=== PATIENT | female | born 1995 | race Caucasian/White ===

== ENCOUNTER 2022-12-03 21:08 | Outpatient (REF) | payer BC, SELFPAY ==
[2022-12-06 15:10] LABS: Age Gdln ACOG Testing Note (.); IGP, rfx Aptima HPV ASCU Note (.)
== END 2022-12-03 21:09 | disposition home or self-care (01) ==
LOC: LAB 21:08
PROVIDERS: Visit Provider Obstetrics & Gynecology
DX: Z12.4 Encounter for screening for malignant neoplasm of cervix (principal); Z11.51 Encounter for screening for human papillomavirus (HPV)
CPT/HCPCS: G0145

== ENCOUNTER 2022-12-06 08:28 | Outpatient (OUT) | payer BC, MEDICAID, SELFPAY ==
[2022-12-06 10:50] LABS: HCG Quantitative 168 mIU/mL
== END 2022-12-06 08:29 | disposition home or self-care (01) ==
PROVIDERS: PCP Family Medicine; Visit Provider Obstetrics & Gynecology
DX: N92.6 Irregular menstruation, unspecified (principal)
CPT/HCPCS: 36415; 84702

== ENCOUNTER 2022-12-09 07:13 | Outpatient (OUT) | payer BC, MEDICAID, SELFPAY ==
[2022-12-09 08:00] LABS: HCG Quantitative 942 mIU/mL
== END 2022-12-09 07:14 | disposition home or self-care (01) ==
LOC: LAB 07:15
PROVIDERS: PCP Family Medicine; Visit Provider Obstetrics & Gynecology
DX: N92.6 Irregular menstruation, unspecified (principal)
CPT/HCPCS: 36415; 84702

== ENCOUNTER 2023-01-09 15:34 | Outpatient (OUT) | payer BC, MEDICAID, SELFPAY ==
--- NOTE | 2023-01-09 15:37 | US_ITS ---
The [address] [address] Patient Name: JARVIS MACEDO MRN: [id number] date: 1995 Sex: F Assigned Patient Location: US Current Patient Location: US Accession/Order Number: [id number] Exam Date: 01/09/2023 15:38 Report Date: 01/09/2023 22:15 At the request of: TALITA LEARY Procedure: US OB transvaginal EXAMINATION: US OB transvaginal HISTORY: MISSED MENSES COMPARISON: No relevant comparison available. FINDINGS: GESTATIONAL SAC: Present and normal appearing. YOLK SAC: Present and normal appearing. POLE: Present and normal appearing. CARDIAC: Present. UTERUS: Normal size and appearance. OVARIES: Right: Normal. Left: Normal. CERVIX: 5.1 cm in length and closed. CUL-DE-SAC: Normal. OTHER: None. AGE BY LMP: 8 weeks 6 days TONJA BY LMP: 08/15/2023 AGE BY US CRL: 9 weeks 2 days TONJA BY US CRL: 08/12/2023 US/US OB transvaginal IMPRESSION: 1. Single live intrauterine . Electronically authenticated by: SELENA ZUÑIGA Date: 01/09/2023 22:15
== END 2023-01-09 15:35 | disposition home or self-care (01) ==
LOC: US 15:34
PROVIDERS: PCP Family Medicine; Visit Provider Obstetrics & Gynecology
DX: Z34.91 Encounter for supervision of normal pregnancy, unspecified, first trimester (principal)
CPT/HCPCS: 76817

== ENCOUNTER 2023-01-17 10:14 | Outpatient (OUT) | payer BC, MEDICAID, SELFPAY ==
[2023-01-17 11:01] LABS: BOX Test Sent Out Y
[2023-01-17 11:06] LABS: Basophils Percent Auto 0.1 % (0.2-2.0); Eosinophils Absolute Auto 0.1 10^3/uL (0.0-0.7); Eosinophils Percent Auto 0.8 % (0.9-7.0); Hematocrit 41.8 % (36.0-48.0); Hemoglobin 14.3 g/dL (12.0-16.0); Immature Granulocytes Abs Auto 0.02 10^3/uL (0.00-0.03); Immature Granulocytes Pct Auto 0.3 % (0.0-0.5); Lymphocytes Absolute Auto 2.6 10^3/uL (1.2-3.8); Lymphocytes Percent Auto 34.6 % (20.5-60.0); Mean Corpuscular HGB Conc 34.2 g/dL (29.9-35.2); Mean Corpuscular Volume 87.8 fL (81.0-99.0); Mean Platelet Volume 9.6 fL (9.5-13.5); Monocytes Absolute Auto 0.4 10^3/uL (0.3-0.8); Monocytes Percent Auto 4.6 % (1.7-12.0); Neutrophils Absolute Auto 4.5 10^3/uL (1.4-6.5); Neutrophils Percent Auto 59.6 % (43.0-75.0); Platelet Count 284 10^3/uL (150-450); Red Blood Count 4.76 10^6/uL (4.20-5.40); Red Cell Distribution Width 13.2 % (11.0-15.0); White Blood Count 7.6 10^3/uL (4.0-11.0)
[2023-01-17 11:11] LABS: Estimated Average Glucose 94 mg/dL; Glycohemoglobin A1C 4.9 % (4.5-6.2)
[2023-01-17 12:13] LABS: Thyroid Stimulating Hormone 2.388 uIU/mL (0.358-3.740)
[2023-01-18 07:09] LABS: Rubella Antibodies, IgG 2.56 index (Immune >0.99)
[2023-01-18 08:10] LABS: HBsAg Screen Negative (Negative); HCV Ab Non Reactive (Non Reactive); HIV Ab/p24 Ag Screen Non Reactive (Non Reactive)
[2023-01-18 11:10] LABS: Rapid Plasma Reagin, Quant Non Reactive (NonRea<1:1)
== END 2023-01-17 10:15 | disposition home or self-care (01) ==
LOC: LAB 10:15
PROVIDERS: PCP Family Medicine; Visit Provider Obstetrics & Gynecology
DX: Z34.80 Encounter for supervision of other normal pregnancy, unspecified trimester (principal); N92.6 Irregular menstruation, unspecified
CPT/HCPCS: 36415; 83036; 84443; 85025; 86592; 86706; 86762; 86803; 86850; 86900; 86901; 87086; 87389

== ENCOUNTER 2023-04-02 07:43 | Outpatient (OUT) | payer BC, MEDICAID, SELFPAY ==
--- NOTE | 2023-04-02 07:46 | US_ITS ---
[address] [address] Patient Name: JARVIS MACEDO MRN: [id number] date: 1995 Sex: F Assigned Patient Location: US Current Patient Location: US Accession/Order Number: [id number] Exam Date: 04/02/2023 07:46 Report Date: 04/02/2023 15:50 At the request of: TALITA LEARY Procedure: US OB anatomy EXAMINATION: US OB anatomy, US OB cervical length HISTORY: ANATOMY COMPARISON: No relevant comparison available. TECHNIQUE: Transabdominal sonographic examination was performed for obstetrical and evaluation. FINDINGS: Number: 1 Heart Rate: 142.0 bpm H.B. /min Amniotic Fluid Volume: Subjectively normal Placental Location: Posterior with lower margin 2.2 cm from os. Cervix Length: 5 cm , closed. ANATOMY: Normal Structures -cerebellum, choroid plexus, cisterna magna, lateral cerebral ventricles, orbits, midline falx, hard palate, four-chamber heart, RVOT, LVOT, stomach, kidneys, bladder, umbilical cord insertion into abdomen, three-vessel cord, right upper extremity, left upper extremity, right lower extremity, left lower extremity. SUBOPTIMALLY SEEN: Spine ABNORMALITIES: Renal pelvis is 4 mm in width bilaterally. BIOMETRY: BPD: 5.2 cm 21 weeks 5 days ; 83% HC: 19.2 cm 21 weeks 3 days; 75% AC: 17.5 cm 22 weeks 3 days; 90% FL: 3.7 cm 21 weeks 6 days ; 81% EFW:476.0 grams; >97% FL/AC: 21.4 FL/BPD: 72.5 HC/AC: 1.1 GESTATIONAL AGE: Age by EDC: 20 weeks 5 days TONJA by EDC: 08/15/2023 Age by current US: 21 weeks 6 days TONJA by current US: 08/07/2023 US/US OB anatomy IMPRESSION: 1. Single live intrauterine with growth detailed above. 2. Estimated weight is greater than 97th percentile. 3. Suboptimal visualization of spine due to position. 4. Slightly prominent renal pelvis bilaterally; follow-up recommended to evaluate for developing hydronephrosis. Electronically authenticated by: SELENA ZUÑIGA Date: 04/02/2023 15:50
--- NOTE | 2023-04-02 07:46 | US_ITS ---
[address] [address] Patient Name: JARVIS MACEDO MRN: [id number] date: 1995 Sex: F Assigned Patient Location: US Current Patient Location: US Accession/Order Number: [id number] Exam Date: 04/02/2023 07:46 Report Date: 04/02/2023 15:50 At the request of: TALITA LEARY Procedure: US OB cervical length EXAMINATION: US OB anatomy, US OB cervical length HISTORY: ANATOMY COMPARISON: No relevant comparison available. TECHNIQUE: Transabdominal sonographic examination was performed for obstetrical and evaluation. FINDINGS: Number: 1 Heart Rate: 142.0 bpm H.B. /min Amniotic Fluid Volume: Subjectively normal Placental Location: Posterior with lower margin 2.2 cm from os. Cervix Length: 5 cm , closed. ANATOMY: Normal Structures -cerebellum, choroid plexus, cisterna magna, lateral cerebral ventricles, orbits, midline falx, hard palate, four-chamber heart, RVOT, LVOT, stomach, kidneys, bladder, umbilical cord insertion into abdomen, three-vessel cord, right upper extremity, left upper extremity, right lower extremity, left lower extremity. SUBOPTIMALLY SEEN: Spine ABNORMALITIES: Renal pelvis is 4 mm in width bilaterally. BIOMETRY: BPD: 5.2 cm 21 weeks 5 days ; 83% HC: 19.2 cm 21 weeks 3 days; 75% AC: 17.5 cm 22 weeks 3 days; 90% FL: 3.7 cm 21 weeks 6 days ; 81% EFW:476.0 grams; >97% FL/AC: 21.4 FL/BPD: 72.5 HC/AC: 1.1 GESTATIONAL AGE: Age by EDC: 20 weeks 5 days TONJA by EDC: 08/15/2023 Age by current US: 21 weeks 6 days TONJA by current US: 08/07/2023 US/US OB cervical length IMPRESSION: 1. Single live intrauterine with growth detailed above. 2. Estimated weight is greater than 97th percentile. 3. Suboptimal visualization of spine due to position. 4. Slightly prominent renal pelvis bilaterally; follow-up recommended to evaluate for developing hydronephrosis. Electronically authenticated by: SELENA ZUÑIGA Date: 04/02/2023 15:50
== END 2023-04-02 07:44 | disposition home or self-care (01) ==
LOC: US 07:43
PROVIDERS: PCP Family Medicine; Visit Provider Obstetrics & Gynecology
DX: Z34.92 Encounter for supervision of normal pregnancy, unspecified, second trimester (principal)
CPT/HCPCS: 76805; 76817

== ENCOUNTER 2023-04-21 07:05 | Outpatient (OUT) | payer BC, MEDICAID, SELFPAY ==
[2023-04-21 08:08] LABS: Chol HDL Ratio 3.1; Cholesterol 235 mg/dL (<=200); HDL Cholesterol 75 mg/dL (40-60); Triglycerides 140 mg/dL (<=150)
== END 2023-04-21 07:06 | disposition home or self-care (01) ==
LOC: LAB 07:07
PROVIDERS: PCP Family Medicine; Visit Provider Physician Assistant
DX: Z00.00 Encounter for general adult medical examination without abnormal findings (principal)
CPT/HCPCS: 36415; 80061

== ENCOUNTER 2023-05-01 08:52 | Outpatient (OUT) | payer BC, OTHER, SELFPAY ==
--- NOTE | 2023-05-01 07:43 | US_ITS ---
[address] [address] Patient Name: JARVIS MACEDO MRN: [id number] date: 1995 Sex: F Assigned Patient Location: Current Patient Location: Accession/Order Number: [id number] Exam Date: 05/01/2023 07:45 Report Date: 05/01/2023 09:30 At the request of: TALITA LEARY Procedure: US OB cervical length PROCEDURE: US OB growth, US OB placenta, US OB cervical length HISTORY: LARGE FOR DATES COMPARISON: None. TECHNIQUE: Transabdominal sonographic examination was performed for obstetrical and evaluation. FINDINGS: Number: 1 Heart Rate: 128.0 bpm H.B. /min Amniotic Fluid Volume: 13.3 cm. Largest fluid pocket 4.1 cm position: Cephalic presentation, longitudinal lie Placental Location: Posterior. Placental tip 5.1 cm from the internal os. Grade 1. No intraplacental or retroplacental echogenic abnormality Cervix Length: 4.4 cm, closed BIOMETRY: BPD: 6.5 cm 26 weeks 2 days , 88% HC: 24.5 cm 26 weeks 4 days , 86% AC:21.8 cm 26 weeks 2 days , 82% FL: 4.9 cm 26 weeks 4 days , 86% EFW: 932.1 grams 2 lbs. 1 oz., 95.4% FL/AC: 22.7 FL/BPD: 75.6 HC/AC: 1.1 GESTATIONAL AGE: Age by EDC: 24 weeks 6 days TONJA by EDC: 08/15/2023 Ultrasound Age: 26 weeks 3 days Ultrasound TONJA: 08/04/2023 US/US OB cervical length IMPRESSION: Estimated weight at the 95th percentile Placental edge 5.1 cm from the internal os Closed Cervix measuring 4.4 cm in length *Reference: [employer] Practice Guideline for the performance of Obstetric Ultrasound Examinations, February 23, 2007. Electronically authenticated by: REBEL FRANK Date: 05/01/2023 09:30
--- NOTE | 2023-05-01 07:44 | US_ITS ---
[address] [address] Patient Name: JARVIS MACEDO MRN: [id number] date: 1995 Sex: F Assigned Patient Location: Current Patient Location: Accession/Order Number: [id number] Exam Date: 05/01/2023 07:45 Report Date: 05/01/2023 09:30 At the request of: TALITA LEARY Procedure: US OB placenta PROCEDURE: US OB growth, US OB placenta, US OB cervical length HISTORY: LARGE FOR DATES COMPARISON: None. TECHNIQUE: Transabdominal sonographic examination was performed for obstetrical and evaluation. FINDINGS: Number: 1 Heart Rate: 128.0 bpm H.B. /min Amniotic Fluid Volume: 13.3 cm. Largest fluid pocket 4.1 cm position: Cephalic presentation, longitudinal lie Placental Location: Posterior. Placental tip 5.1 cm from the internal os. Grade 1. No intraplacental or retroplacental echogenic abnormality Cervix Length: 4.4 cm, closed BIOMETRY: BPD: 6.5 cm 26 weeks 2 days , 88% HC: 24.5 cm 26 weeks 4 days , 86% AC:21.8 cm 26 weeks 2 days , 82% FL: 4.9 cm 26 weeks 4 days , 86% EFW: 932.1 grams 2 lbs. 1 oz., 95.4% FL/AC: 22.7 FL/BPD: 75.6 HC/AC: 1.1 GESTATIONAL AGE: Age by EDC: 24 weeks 6 days TONJA by EDC: 08/15/2023 Ultrasound Age: 26 weeks 3 days Ultrasound TONJA: 08/04/2023 US/US OB placenta IMPRESSION: Estimated weight at the 95th percentile Placental edge 5.1 cm from the internal os Closed Cervix measuring 4.4 cm in length *Reference: [employer] Practice Guideline for the performance of Obstetric Ultrasound Examinations, February 23, 2007. Electronically authenticated by: REBEL FRANK Date: 05/01/2023 09:30
--- NOTE | 2023-05-01 07:50 | US_ITS ---
[address] [address] Patient Name: JARVIS MACEDO MRN: [id number] date: 1995 Sex: F Assigned Patient Location: Current Patient Location: Accession/Order Number: [id number] Exam Date: 05/01/2023 07:50 Report Date: 05/01/2023 09:30 At the request of: TALITA LEARY Procedure: US OB growth PROCEDURE: US OB growth, US OB placenta, US OB cervical length HISTORY: LARGE FOR DATES COMPARISON: None. TECHNIQUE: Transabdominal sonographic examination was performed for obstetrical and evaluation. FINDINGS: Number: 1 Heart Rate: 128.0 bpm H.B. /min Amniotic Fluid Volume: 13.3 cm. Largest fluid pocket 4.1 cm position: Cephalic presentation, longitudinal lie Placental Location: Posterior. Placental tip 5.1 cm from the internal os. Grade 1. No intraplacental or retroplacental echogenic abnormality Cervix Length: 4.4 cm, closed BIOMETRY: BPD: 6.5 cm 26 weeks 2 days , 88% HC: 24.5 cm 26 weeks 4 days , 86% AC:21.8 cm 26 weeks 2 days , 82% FL: 4.9 cm 26 weeks 4 days , 86% EFW: 932.1 grams 2 lbs. 1 oz., 95.4% FL/AC: 22.7 FL/BPD: 75.6 HC/AC: 1.1 GESTATIONAL AGE: Age by EDC: 24 weeks 6 days TONJA by EDC: 08/15/2023 Ultrasound Age: 26 weeks 3 days Ultrasound TONJA: 08/04/2023 US/US OB growth IMPRESSION: Estimated weight at the 95th percentile Placental edge 5.1 cm from the internal os Closed Cervix measuring 4.4 cm in length *Reference: [employer] Practice Guideline for the performance of Obstetric Ultrasound Examinations, February 23, 2007. Electronically authenticated by: REBEL FRANK Date: 05/01/2023 09:30
== END 2023-05-01 08:53 | disposition home or self-care (01) ==
PROVIDERS: PCP Family Medicine; Visit Provider Obstetrics & Gynecology
DX: O36.62X0 Maternal care for excessive fetal growth, second trimester, not applicable or unspecified (principal); Z3A.24 24 weeks gestation of pregnancy; O44.42 Low lying placenta NOS or without hemorrhage, second trimester
CPT/HCPCS: 76815; 76816; 76817

== ENCOUNTER 2023-05-02 07:35 | Outpatient (OUT) | payer BC, OTHER, SELFPAY ==
[2023-05-02 07:32] LABS: Basophils Percent Auto 0.3 % (0.2-2.0); Eosinophils Absolute Auto 0.1 10^3/uL (0.0-0.7); Eosinophils Percent Auto 0.8 % (0.9-7.0); Hematocrit 38.6 % (36.0-48.0); Hemoglobin 12.6 g/dL (12.0-16.0); Immature Granulocytes Abs Auto 0.03 10^3/uL (0.00-0.03); Immature Granulocytes Pct Auto 0.3 % (0.0-0.5); Lymphocytes Absolute Auto 2.6 10^3/uL (1.2-3.8); Lymphocytes Percent Auto 26.5 % (20.5-60.0); Mean Corpuscular HGB Conc 32.6 g/dL (29.9-35.2); Mean Corpuscular Hemoglobin 29.2 pg (26.7-34.0); Mean Corpuscular Volume 89.4 fL (81.0-99.0); Mean Platelet Volume 9.7 fL (9.5-13.5); Monocytes Absolute Auto 0.4 10^3/uL (0.3-0.8); Monocytes Percent Auto 3.7 % (1.7-12.0); Neutrophils Absolute Auto 6.6 10^3/uL (1.4-6.5); Neutrophils Percent Auto 68.4 % (43.0-75.0); Platelet Count 218 10^3/uL (150-450); Red Blood Count 4.32 10^6/uL (4.20-5.40); Red Cell Distribution Width 12.9 % (11.0-15.0); White Blood Count 9.6 10^3/uL (4.0-11.0)
[2023-05-02 08:02] LABS: Glucose 1 Hour 107 mg/dL
== END 2023-05-02 07:36 | disposition home or self-care (01) ==
LOC: LAB 07:35
PROVIDERS: Physician Assistant; PCP Family Medicine; Visit Provider Obstetrics & Gynecology
DX: Z34.90 Encounter for supervision of normal pregnancy, unspecified, unspecified trimester (principal)
CPT/HCPCS: 36415; 82950; 85025

== ENCOUNTER 2023-05-27 07:57 | Outpatient (OUT) | payer BC, OTHER, SELFPAY ==
--- NOTE | 2023-05-27 07:59 | US_ITS ---
[address] [address] Patient Name: JARVIS MACEDO MRN: [id number] date: 1995 Sex: F Assigned Patient Location: US Current Patient Location: US Accession/Order Number: [id number] Exam Date: 05/27/2023 07:59 Report Date: 05/27/2023 08:43 At the request of: TALITA LEARY Procedure: US OB growth EXAMINATION: US OB growth HISTORY: LGA COMPARISON: No relevant comparison available. TECHNIQUE: Transabdominal sonographic examination was performed for obstetrical and evaluation. FINDINGS: Number: 1 Heart Rate: 137.0 bpm H.B. /min Amniotic Fluid Volume: 12.1 cm Placental Location: Posterior fundal BIOMETRY: BPD: 7.9 cm 31 weeks 4 days , greater than 97% HC: 29.8 cm 33 weeks 0 days, greater than 97% AC: 26.8 cm 30 weeks 6 days, 95% FL: 5.8 cm 30 weeks 3 days , 85% EFW:1679.9 grams; 3 lbs. 11 oz., greater than 97% FL/AC: 21.8 FL/BPD: 74.3 HC/AC: 1.1 GESTATIONAL AGE: Age by EDC: 28 weeks 4 days Age by current US: 31 weeks 3 days TONJA by current US: 07/26/2023 TONJA by EDC: 08/15/2023 US/US OB growth IMPRESSION: Large for gestational age. Estimated weight greater than the 97th percentile *Reference: [employer] Practice Guideline for the performance of Obstetric Ultrasound Examinations, February 23, 2007. Electronically authenticated by: REBEL FRANK Date: 05/27/2023 08:43
--- OUTSIDE RECORDS SUMMARY | 2023-05-27 08:00 | XMS_ITS | CCD ---
Author Name Unknown Address [address] [place] [address] Organization [facility] Care Team Providers Care Litigation Claim Representative Name Role Phone TARYN, DR GA Primary Care Unavailable MAGUE, DR MAUDE Pathak Admitting Unavailabl e REINECK, DR MAUDE Pathak Consulting Unavailabl e HOECK, DR MAUDE Pathak Attending Unavailabl e Jackie Willett Unavailable Max, Urban Unavailable Georgie Disla Unavailable Asim Garber Admitting Unavailable Asim Garber Attending Unavailable Max, Urban MMarilyn Primary Care Unavailable Max, Urban MMarilyn Attending Unavailable Max, Urban MMarilyn Admitting Unavailable Max, Urban M. Primary Care Unavailable Dontrell Gallegos Unavailable Susanne Huitron Unavailable WILL GUSMAN Attending Unavailable Medications Current Medications Medication Drug Class(es) Dates Sig (Normalized) Sig (Original) amoxicillin 500 mg oral tablet (4 sources) Penicillin-class Antibacterial Start: 07-09-2022 take 1 tablet by mouth every twelve hours Amoxicillin 500 MG 1 capsule Orally Twice a day for 10 days Jun, Active amoxicillin 500 mg / clavulanate 125 mg oral tablet (2 sources) Penicillin-class Antibacterial Start: 08-21-2022 take 1 tablet by mouth twice daily Augmentin 500-125 MG 1 tablet Orally TWICE DAILY for 7 days Jul, Active DULoxetine 30 mg delayed release oral capsule (5 sources) Serotonin and Norepinephrine Reuptake Inhibitor Start: 01-18-2022 take 1 capsule by mouth every twenty-four hours DULoxetine HCl 30 MG 1 capsule Orally Once a day for 30 day(s) Dec, Active Start: 01-18-2022 take 1 capsule by [facility] every twenty-four hours DULoxetine HCl 20 MG 1 capsule Orally Once a day for 30 day(s) Dec, Active ethinyl estradiol 0.02 mg / ferrous fumarate 75 mg / norethindrone 1 mg oral tablet (2 sources) Estrogen take 1 tablet by mouth every twenty-four hours FE 06/14 1-20 MG-[facility] 1 tablet Orally Once a day Active ibuprofen 200 mg oral tablet (2 sources) Nonsteroidal Anti-inflammatory Drug Motrin IB 200 MG 1 tablet with food or milk as needed Orally Three times a day 800 mg taken at a time. Active Multivitamin/Iron (9 sources) Multivitamin/Iro n once daily Active nitrofurantoin, macrocrystals 25 mg / nitrofurantoin, monohydrate 75 mg oral capsule (4 sources) Nitrofuran Antibacterial Start: 08-10-19 23 take 1 capsule by mouth every twelve hours Macrobid 100 MG 1 capsule with food Orally every 12 hrs for 7 day(s) Jul, Active sertraline 50 mg oral tablet (2 sources) Serotonin Reuptake Inhibitor Start: 12-26-19 21 take 1 tablet by mouth every twenty-four hours Zoloft 50 MG 1 tablet Orally Once a day for 30 day(s) Dec, Active Problems Problem Classification Problem Date Documented Da te Episodic/Chronic Anxiety disorders (13 sources) Anxiety; Translations: [Anxiety disorder, unspecified] Onset: 01-18-2022 Resolved: 01-18-2022 Chronic E Codes: Cut/pierceb (1 source) Contact with sharp glass, initial encounter; Translations: [CONTACT W/SHARP GLASS INITIAL ENC] Onset: 12-19-2020 Episodic Genitourinary symptoms and ill-defined conditions (2 sources) Dysuria; Translations: [Dysuria] Onset: 08-07-2022 Episodic Immunizations and screening for infectious disease (14 sources) Encounter for immunization; Translations: [Contact with and (suspected) exposure to other viral communicable diseases] Onset: 12-19-2020 Resolved: 02-11-2022 Episodic Open wounds of extremities (4 sources) Laceration without foreign body of right forearm, initial encounter; Translations: [LACERATION W/O FB RT FORARM INITIAL] Onset: 07-24-2021 Episodic Other upper respiratory infections (1 source) Acute frontal sinusitis, unspecified Episodic Residual codes; unclassified (11 sources) Insomnia; Translations: [Insomnia, unspecified] Episodic Results Test Name Value Interpretation Reference Range Janelle gandhi Urine Cultureon 08-07-2022 Urine Culture >100,000 [facility] Other Urine Culture <16 Susceptible [facility] Other Urine Culture <8/4 Susceptible [facility] Other Urine Culture >16 Resistant [facility] Other Urine Culture <4 Susceptible [facility] Other Urine Culture <2 Susceptible [facility] Other Urine Culture <1 Susceptible [facility] Other Urine Culture <0.25 Susceptible [facility] Other Urine Culture <0.5 Susceptible [facility] Other Urine Culture >8 Resistant [facility] Other Urine Culture <32 Susceptible [employer] Other Urine Culture 4 Susceptible [facility] Other Urine Culture >2/38 Resistant [facility] Other Bacteria identified Cx Nom (U) Reason for Exam Dysuria Urine Reason for Exam: Dysuria : Urine ORGANISM: Escherichia coli (O:ESCCOL) [place] Count >100,000 Aerobic REMY Charge (NMIC56) ----- SUSCEPTIBILITY ---- ORGANISM: O:ESCCOL ANTIBIOTIC INTERPRETATION REMY Amikacin S <16 Amoxacillin/K Clavulanate S <8 Ampicillin R >16 Ampicillin/Sulbactam I 1616/8 Aztreonam S <4 Cefazolin S <2 Cefepime S <2 Ceftazidime S <1 Ceftazidime/Avibacta m S <4 Ceftolozane/Tazobact am S <2 Ceftriaxone S <1 Cefuroxime S <4 Ciprofloxacin S <0.25 Ertapenem S <0.5 Gentamicin R >8 Levofloxacin S <0.5 Meropenem S <1 Meropenem/Vaborbacta m S <2 Nitrofurantoin S <32 Piperacillin/Tazobac pacheco S <8 Tetracycline S <4 Tigecycline S <2 Tobramycin S 4 Trimethoprim/Sulfame thoxazole R >2 S = SUSCEPTIBLE I = INTERMEDIATE R = RESISTANT BLANK = DATA NOT AVAILABLE, OR DRUG NOT ADVISABLE OR TESTED R* = RESISTANCE DUE TO EXTENDED SPECTRUM BETA-LACTAMASES ESBL = EXTENDED SPECTRUM BETA-LACTAMASE TFG = THYMIDINE-DEPENDENT STRAIN MICHAEL = BETA-LACTAMASE POSITIVE IB = INDUCIBLE BETA-LACTAMASE. APPEARS IN PLACE OF 'S' WITH SPECIES KNOWN TO POSSESS INDUCIBLE BETA-LACTAMASES. POTENTIALLY THEY MAY BECOME RESISTANT TO ALL B-LACTAM DRUGS. PERFORMED BY: [place] [id number] PATHOLOGIST [employer] ROBERT WEBB M.D. [facility] Comment on above: Performed By: #### C UU #### [address] SARS-CoV-2 (COVID-19) RNA NA A+probe Ql (Resp)on 02-13-2022 SARS-CoV-2 (COVID-19) RNA CLAY+probe Ql (Unsp spec) Positive [facility] Other SARS-CoV-2 (COVID-19) RNA NA A+probe Ql (Resp)on 02-11-2022 SARS-CoV-2 (COVID-19) RNA CLAY+probe Ql (Unsp spec) Negative [facility] Other SARS-CoV-2 (COVID-19) RNA NA A+probe Ql (Resp)on 01-12-2022 SARS-CoV-2 (COVID-19) RNA CLAY+probe Ql (Unsp spec) Negative [facility] Other Employee Comp Metabolic Pane jakob 08-15-2022 Albumin [Mass/Vol] 4.0 g/dL Normal 3.2-5.5 [facility] Comment on above: Performed By: #### P ILLAR LIPID, PILLAR TSH, PILLAR CBC, PILLAR CMP #### [facility] [address] [place] [address] #### NICOTINE QUAL #### [facility] , Albumin/Globulin [Mass ratio] 1.4 {ratio} Normal [facility] Comment on above: Performed By: #### P ILLAR LIPID, PILLAR TSH, PILLAR CBC, PILLAR CMP #### [facility] [address] [place] [address] #### NICOTINE QUAL #### [facility] , ALP [Catalytic activity/Vol] 72 U/L Normal 32-92 [facility] Comment on above: Performed By: #### P ILLAR LIPID, PILLAR TSH, PILLAR CBC, PILLAR CMP #### [facility] [address] [place] [address] [place] #### NICOTINE QUAL #### [facility] , ALT [Catalytic activity/Vol] 20 U/L Normal 10-60 [facility] Comment on above: Performed By: #### P ILLAR LIPID, PILLAR TSH, PILLAR CBC, PILLAR CMP #### [facility] [address] [place] [address] #### NICOTINE QUAL #### [facility] , AST [Catalytic activity/Vol] 23 U/L Normal 10-42 [facility] Comment on above: Performed By: #### P ILLAR LIPID, PILLAR TSH, PILLAR CBC, PILLAR CMP #### [facility] [address] [place] [address] [place] #### NICOTINE QUAL #### [facility] , Bilirubin [Mass/Vol] 0.4 mg/dL Normal 0.3-1.2 [facility] Comment on above: Performed By: #### P ILLAR LIPID, PILLAR TSH, PILLAR CBC, PILLAR CMP #### [facility] [address] [place] [address] [place] #### NICOTINE QUAL #### [facility] , Calcium [Mass/Vol] 9.6 mg/dL Normal 8.2-10.2 [facility] Comment on above: Performed By: #### P ILLAR LIPID, PILLAR TSH, PILLAR CBC, PILLAR CMP #### [facility] [address] [place] [address] [place] #### NICOTINE QUAL #### [facility] , Chloride [Moles/Vol] 101 mmol/L Normal 95-114 [facility] Comment on above: Performed By: #### P ILLAR LIPID, PILLAR TSH, PILLAR CBC, PILLAR CMP #### [address] #### NICOTINE QUAL #### [facility] , CO2 [Moles/Vol] 24.9 mmol/L Normal 22.0-30.0 [facility] Comment on above: Performed By: #### P ILLAR LIPID, PILLAR TSH, PILLAR CBC, PILLAR CMP #### [facility] [address] [place] [address] [place] #### NICOTINE QUAL #### [facility] , Creatinine [Mass/Vol] 0.72 mg/dL Normal 0.44-1.03 [facility] Comment on above: Performed By: #### P ILLAR LIPID, PILLAR TSH, PILLAR CBC, PILLAR CMP #### [place] [address] [place] #### NICOTINE QUAL #### [facility] , Estimated GFR ( Katelin > 60 Normal [facility] Comment on above: Result Comment: GFR estimated reference range: According to KDOQI guidelines, <60 ml/min/1.73m2 is sufficient to diagnose a patient with chronic kidney disease. Performed By: #### P ILLAR LIPID, PILLAR TSH, PILLAR CBC, PILLAR CMP #### [place] [address] [place] #### NICOTINE QUAL #### [facility] , Estimated GFR (Non- Am > 60 Normal [facility] Comment on above: Performed By: #### P ILLAR LIPID, PILLAR TSH, PILLAR CBC, PILLAR CMP #### [facility] [address] [place] [address] [place] #### NICOTINE QUAL #### [facility] , Globulin (S) [Mass/Vol] 2.8 g/dL Normal [facility] Comment on above: Performed By: #### P ILLAR LIPID, PILLAR TSH, PILLAR CBC, PILLAR CMP #### [facility] [address] [place] [address] [place] #### NICOTINE QUAL #### [facility] , Glucose [Mass/Vol] 91 mg/dL Normal 70-100 [facility] Comment on above: Performed By: #### P ILLAR LIPID, PILLAR TSH, PILLAR CBC, PILLAR CMP #### [place] [address] [place] #### NICOTINE QUAL #### [facility] , Potassium [Moles/Vol] 4.3 mmol/L Normal 3.5-5.1 [facility] Comment on above: Performed By: #### P ILLAR LIPID, PILLAR TSH, PILLAR CBC, PILLAR CMP #### [facility] [address] [place] [address] [place] #### NICOTINE QUAL #### [facility] , Protein [Mass/Vol] 6.8 g/dL Normal 6.1-7.9 [facility] Comment on above: Performed By: #### P ILLAR LIPID, PILLAR TSH, PILLAR CBC, PILLAR CMP #### [facility] [address] [place] [address] [place] #### NICOTINE QUAL #### [facility] , Sodium [Moles/Vol] 134 mmol/L Low 136-146 [facility] Comment on above: Performed By: #### P ILLAR LIPID, PILLAR TSH, PILLAR CBC, PILLAR CMP #### [address] #### NICOTINE QUAL #### [facility] , Urea nitrogen [Mass/Vol] 10 mg/dL Normal 9-23 [facility] Comment on above: Performed By: #### P ILLAR LIPID, PILLAR TSH, PILLAR CBC, PILLAR CMP #### [address] #### NICOTINE QUAL #### [facility] , Employee Complete Blood Coun ton 01-07-2022 Basophils (Bld) [#/Vol] 0.0 10*3/uL Normal 0.0-0.2 [facility] Comment on above: Result Comment: PERF ORMED BY: [place] [address] PATHOLOGIST [employer] ROBERT WEBB M.D. Performed By: #### P ILLAR LIPID, PILLAR TSH, PILLAR CBC, PILLAR CMP #### [address] #### NICOTINE QUAL #### [facility] , Basophils/100 WBC (Bld) 0.5 % Normal . [facility] Comment on above: Performed By: #### P ILLAR LIPID, PILLAR TSH, PILLAR CBC, PILLAR CMP #### [facility] [address] [place] [address] [place] #### NICOTINE QUAL #### [facility] , Eosinophils (Bld) [#/Vol] 0.1 10*3/uL Normal 0.0-0.45 [facility] Comment on above: Performed By: #### P ILLAR LIPID, PILLAR TSH, PILLAR CBC, PILLAR CMP #### [place] [address] [place] #### NICOTINE QUAL #### [facility] , Eosinophils/100 WBC (Bld) 1.2 % Normal . [facility] Comment on above: Performed By: #### P ILLAR LIPID, PILLAR TSH, PILLAR CBC, PILLAR CMP #### [facility] [address] [place] [address] [place] #### NICOTINE QUAL #### [facility] , Erythrocyte distribution width (RBC) [Ratio] 16.0 % High 11.9-15.3 [facility] Comment on above: Performed By: #### P ILLAR LIPID, PILLAR TSH, PILLAR CBC, PILLAR CMP #### [place] [address] [place] #### NICOTINE QUAL #### [facility] , Hematocrit (Bld) [Volume fraction] 38.7 % Normal 34.0-46.4 [facility] Comment on above: Performed By: #### P ILLAR LIPID, PILLAR TSH, PILLAR CBC, PILLAR CMP #### [place] [address] [place] #### NICOTINE QUAL #### [facility] , Hemoglobin (Bld) [Mass/Vol] 12.7 g/dL Normal 11.8-15.4 [facility] Comment on above: Performed By: #### P ILLAR LIPID, PILLAR TSH, PILLAR CBC, PILLAR CMP #### [place] [address] [place] #### NICOTINE QUAL #### [facility] , Lymphocytes (Bld) [#/Vol] 2.8 10*3/uL Normal 1.00-4.8 [facility] Comment on above: Performed By: #### P ILLAR LIPID, PILLAR TSH, PILLAR CBC, PILLAR CMP #### [place] [address] [place] #### NICOTINE QUAL #### [facility] , Lymphocytes/100 WBC (Bld) 40.3 % Normal . [facility] Comment on above: Performed By: #### P ILLAR LIPID, PILLAR TSH, PILLAR CBC, PILLAR CMP #### [facility] [address] [place] [address] #### NICOTINE QUAL #### [facility] , MCH (RBC) [Entitic mass] 27.5 pg Normal 24.7-34.3 [facility] Comment on above: Performed By: #### P ILLAR LIPID, PILLAR TSH, PILLAR CBC, PILLAR CMP #### [facility] [address] [place] [address] #### NICOTINE QUAL #### [facility] , MCV (RBC) [Entitic vol] 84.2 fL Normal 80-100 [facility] Comment on above: Performed By: #### P ILLAR LIPID, PILLAR TSH, PILLAR CBC, PILLAR CMP #### [address] #### NICOTINE QUAL #### [facility] , Mean Corpuscular HGB Conc 32.7 g/dL Normal 32.0-35.0 [facility] Comment on above: Performed By: #### P ILLAR LIPID, PILLAR TSH, PILLAR CBC, PILLAR CMP #### [address] #### NICOTINE QUAL #### [facility] , Monocytes (Bld) [#/Vol] 0.3 10*3/uL Normal 0.0-0.8 [facility] Comment on above: Performed By: #### P ILLAR LIPID, PILLAR TSH, PILLAR CBC, PILLAR CMP #### [facility] [address] [place] [address] [place] #### NICOTINE QUAL #### [facility] , Monocytes/100 WBC (Bld) 5.0 % Normal . [facility] Comment on above: Performed By: #### P ILLAR LIPID, PILLAR TSH, PILLAR CBC, PILLAR CMP #### [facility] [address] [place] [address] [place] #### NICOTINE QUAL #### [facility] , Neutrophils (Bld) [#/Vol] 3.7 10*3/uL Normal 1.8-7.7 [facility] Comment on above: Performed By: #### P ILLAR LIPID, PILLAR TSH, PILLAR CBC, PILLAR CMP #### [facility] [address] [place] [address] #### NICOTINE QUAL #### [facility] , Neutrophils/100 WBC (Bld) 53.0 % Normal . [facility] Comment on above: Performed By: #### P ILLAR LIPID, PILLAR TSH, PILLAR CBC, PILLAR CMP #### [facility] [address] [place] [address] #### NICOTINE QUAL #### [facility] , Nucleated RBC/100 WBC (Bld) [Ratio] 0.1 % Normal 0-0.5 [facility] Comment on above: Performed By: #### P ILLAR LIPID, PILLAR TSH, PILLAR CBC, PILLAR CMP #### [facility] [address] [place] [address] #### NICOTINE QUAL #### [facility] , Platelet mean volume (Bld) [Entitic vol] 7.8 fL Normal 6.3-10.7 [facility] Comment on above: Performed By: #### P ILLAR LIPID, PILLAR TSH, PILLAR CBC, PILLAR CMP #### [facility] [address] [place] [address] [place] #### NICOTINE QUAL #### [facility] , Platelets (Bld) [#/Vol] 297 10*3/uL Normal 150-450 [facility] Comment on above: Performed By: #### P ILLAR LIPID, PILLAR TSH, PILLAR CBC, PILLAR CMP #### [facility] [address] [place] [address] [place] #### NICOTINE QUAL #### [facility] , RBC (Bld) [#/Vol] 4.60 10*6/uL Normal 3.60-5.00 [facility] Comment on above: Performed By: #### P ILLAR LIPID, PILLAR TSH, PILLAR CBC, PILLAR CMP #### [facility] [address] [place] [address] #### NICOTINE QUAL #### [facility] , WBC (Bld) [#/Vol] 6.9 10*3/uL Normal 4.5-11.0 [facility] Comment on above: Performed By: #### P ILLAR LIPID, PILLAR TSH, PILLAR CBC, PILLAR CMP #### [address] #### NICOTINE QUAL #### [facility] , Employee Lipid Profileon Cholesterol [Mass/Vol] 163 mg/dL Normal 140-200 [facility] Comment on above: Result Comment: Chol less than 200 mg/dl low risk Chol 201-239 mg/dl borderline risk Chol 240 mg/dl and greater high risk Performed By: #### P ILLAR LIPID, PILLAR TSH, PILLAR CBC, PILLAR CMP #### [facility] [address] [place] [address] #### NICOTINE QUAL #### [facility] , Cholesterol in HDL [Mass/Vol] 57 mg/dL Normal 35-85 [facility] Comment on above: Result Comment: HDL CHOL ATP-III CLASSIFICATION Cardiovascular Risk HDL > or equal to 60 mg/dL LOW HDL < 40 mg/dL HIGH Performed By: #### P ILLAR LIPID, PILLAR TSH, PILLAR CBC, PILLAR CMP #### [facility] [address] [place] [address] #### NICOTINE QUAL #### [facility] , Cholesterol.total/ Cholesterol in HDL [Mass ratio] 2.9 {ratio} Normal <5.0 [facility] Comment on above: Performed By: #### P ILLAR LIPID, PILLAR TSH, PILLAR CBC, PILLAR CMP #### [place] [address] [place] #### NICOTINE QUAL #### [facility] , LDL Cholesterol,Calcul ated 99 mg/dL Normal 0-100 [facility] Comment on above: Result Comment: LDL ATP III CLASSIFICATION LDL less than 100 mg/dL Optimal LDL 100-129 mg/dL Near or above optimal LDL 130-159 mg/dL Borderline high LDL 160-189 mg/dL High LDL greater than 189 mg/dL Very high Performed By: #### P ILLAR LIPID, PILLAR TSH, PILLAR CBC, PILLAR CMP #### [facility] [address] [place] [address] #### NICOTINE QUAL #### [facility] , Triglyceride w/Reflex 34 mg/dL Low 35-149 [facility] Comment on above: Result Comment: TRIG ATP III CLASSIFICATION TRIG less than 150 mg/dL Normal TRIG 150-199 mg/dL Borderline high TRIG 200-500 mg/dL High TRIG greater than 500 mg/dL Very high Standard traceable to the Center for Disease Conrtrol and Prevention (CDC) test method. Performed By: #### P ILLAR LIPID, PILLAR TSH, PILLAR CBC, PILLAR CMP #### [facility] [address] [place] [address] #### NICOTINE QUAL #### [facility] , VLDL CHOLESTEROL 6 mg/dL Normal [facility] Comment on above: Performed By: #### P ILLAR LIPID, PILLAR TSH, PILLAR CBC, PILLAR CMP #### [facility] [address] [place] [address] [place] #### NICOTINE QUAL #### [facility] , Employee Thyroid Stim Hormon jason 01-07-2022 Employee Thyroid Stim Hormone 2.14 u[iU]/mL Normal 0.45-5.33 [facility] Comment on above: Result Comment: PERF ORMED BY: [place] [address] PATHOLOGIST [employer] ROBERT WEBB M.D. Performed By: #### P ILLAR LIPID, PILLAR TSH, PILLAR CBC, PILLAR CMP #### [facility] [address] [place] [address] [place] #### NICOTINE QUAL #### [facility] , Nicotine Metabolite, [place] 01-07-2022 Nicotine Metabolite Negative Normal Cutoff=25 [facility] Comment on above: Result Comment: Perf ormed at: [facility] - [facility] [address] [id number] Time Study Engineer: Josh Ortez MD, Phone: [phone] PERFORMED BY: [place] [address] PATHOLOGIST [employer] ROBERT WEBB M.D. Performed By: #### P ILLAR LIPID, PILLAR TSH, PILLAR CBC, PILLAR CMP #### [facility] [address] [place] [address] #### NICOTINE QUAL #### [facility] , XR FOREARM RT 2Von 1 XR FOREARM RT 2V EXAM: XR FOREARM RT 2V HISTORY: Traumatic injury . Punched a window. Laceration to the mid forearm. COMPARISON: None. TECHNIQUE: 3 views of the right forearm. FINDINGS: Soft tissue swelling is seen along the midportion of the right forearm anteriorly and medially. Associated soft tissue gas. No radiopaque foreign body is identified. Bony alignment at the elbow and wrist appear preserved. No acute fracture is identified. IMPRESSION: 1. Soft tissue swelling and soft tissue gas along the forearm related to history of laceration. No radiopaque foreign body. 2. No acute fracture. 2 Electronically authenticated by: JACKIE WILLETT Date: 2020-12-16 14:53 Normal [facility] Vital Signs Date Time Vital Sign Value Performing Clinician Facility 03-01-2022 09:00-0400 Body height 175.26 cm Urban Santana Other [facility] Other 03-01-2022 09:00-0400 Body mass index (BMI) [Ratio] 33.81 kg/m2 Urban Santana Other [facility] Other 03-01-2022 09:00-0400 Body temperature 97.9 [degF] Urban Max Other [facility] Other 03-01-2022 09:00-0400 Body weight 103.87 kg Urban Max Other [facility] Other 03-01-2022 09:00-0400 Diastolic blood pressure 80 mm[Hg] Urban Max Other [facility] Other 03-01-2022 09:00-0400 Respiratory rate 20 /min Urban Max Other [facility] Other 03-01-2022 09:00-0400 SaO2% (BldA) [Mass fraction] 97 % Urban Max Other [facility] Other 03-01-2022 09:00-0400 Systolic blood pressure 118 mm[Hg] Urban Max Other [facility] Other 01-18-2022 09:45-0400 Body height 175.26 cm Urban Max Other [facility] Other 01-18-2022 09:45-0400 Body mass index (BMI) [Ratio] 32.93 kg/m2 Urban Max Other [facility] Other 01-18-2022 09:45-0400 Body temperature 97.3 [degF] Urban Max Other [facility] Other 01-18-2022 09:45-0400 Body weight 101.15 kg Urban Max Other [facility] Other 01-18-2022 09:45-0400 Diastolic blood pressure 72 mm[Hg] Urban Max Other [facility] Other 01-18-2022 09:45-0400 Respiratory rate 20 /min Urban Max Other [facility] Other 01-18-2022 09:45-0400 SaO2% (BldA) [Mass fraction] 98 % Urban Max Other [facility] Other 01-18-2022 09:45-0400 Systolic blood pressure 112 mm[Hg] Urban Max Other [facility] Other 03-05-2021 16:15-0400 Body height 175.26 cm Urban Max Other [facility] Other 03-05-2021 16:15-0400 Body mass index (BMI) [Ratio] 35.14 kg/m2 Urban Max Other [facility] Other 03-05-2021 16:15-0400 Body weight 107.96 kg Urban Max Other [facility] Other 03-05-2021 16:15-0400 Diastolic blood pressure 68 mm[Hg] Urban Max Other [facility] Other 03-05-2021 16:15-0400 Respiratory rate 20 /min Urban Max Other [facility] Other 03-05-2021 16:15-0400 SaO2% (BldA) [Mass fraction] 98 % Urban Max Other [facility] Other 03-05-2021 16:15-0400 Systolic blood pressure 110 mm[Hg] Urban Max Other [facility] Other Encounters Encounter Date Encounter Type Care Provider Facility Start: 05-01-2023 End: 05-01-2023 ambulatory WILL GUSMAN Not Available Start: 09-10-2022 End: 09-10-2022 ambulatory Susanne Huitron Other [facility] Other Start: 09-10-2022 Telephone encounter [facility] Start: 08-21-2022 End: 08-21-2022 ambulatory Dontrell Gallegos Other [facility] Other Start: 08-21-2022 Telephone encounter [facility] Start: 08-09-2022 End: 08-09-2022 ambulatory Urban Max Other [facility] Other Start: 08-09-2022 Telephone encounter Urban Max [facility] Start: 08-07-2022 End: 08-07-2022 ambulatory Urban M. Max Facility:[facility] Start: 08-06-2022 End: 08-06-2022 ambulatory Urban Max Other [facility] Other Start: 08-06-2022 Telephone encounter Urban Max [facility] Start: 03-26-2022 End: 03-26-2022 ambulatory Urban Max Other [facility] Other Start: 03-26-2022 Telephone encounter Urban Max [facility] Start: 03-01-2022 End: 03-01-2022 ambulatory Urban Max Other [facility] Other Start: 03-01-2022 Encounter for genera l adult medical examination without abnormal findings Urban Max [facility] Start: 03-01-2022 Periodic preventive med est patient 18-39 yrs Urban Max [facility] Start: 02-13-2022 End: 02-13-2022 ambulatory Georgiedarnell Disla Other [facility] Other Start: 02-13-2022 Nursing evaluation o f patient and report Georgie Nighat [facility] Start: 02-11-2022 End: 02-11-2022 ambulatory Georgie Nighat Other [facility] Other Start: 02-11-2022 Nursing evaluation o f patient and report Georgie Nighat [facility] Start: 01-18-2022 End: 01-18-2022 ambulatory [facility] Other Start: 01-18-2022 Office outpatient visit 15 minutes [facility] Start: 01-12-2022 End: 01-12-2022 ambulatory Georgie Nighat Other [facility] Other Start: 01-12-2022 Nursing evaluation o f patient and report Georgie Nighat [facility] Start: 01-07-2022 End: 01-07-2022 ambulatory Asim Garber Facility:[facility] Start: 03-05-2021 Encounter for genera l adult medical examination without abnormal findings [facility] Start: 03-05-2021 Periodic preventive med est patient 18-39 yrs Urban Max [facility] Start: 12-16-2020 End: 12-16-[address] DOCTOR CENTENO Facility:[facility] Procedures Date Procedure Procedure Detail Performing Clinician Start: 08-07-2022 Piperacillin/tazobactam [facility] Other Immunizations Immunization Date Immunization Notes Care Provider [place] 02-27-2021 influenza, seasonal, injectable [facility] Other 02-29-2020 influenza, injectable, quadrivalent, contains preservative [facility] Other 02-07-2020 influenza, injectable, quadrivalent, contains preservative Patient Objection [facility] Other [facility] Other NEGATED: Highlighted row has not occurred!02-07-2020 influenza, injectable, quadrivalent, contains preservative Patient Objection Georgie Nighat Other [facility] Other Payers Date Payer Category Payer Medicaid [id number] 2022 Unknown [id number] 2021 Self-pay 1995 Unknown [id number] 1995 Unknown [id number] 1959 Unknown [id number] Unknown [id number] Unknown [id number] Social History Date Type Detail Facility Unknown if ever smoked [facility] Other Sex Assigned At Sex Assigned At Bir th [facility] Other Clinical Notes 03-05-2021 to 08-21-2022 Note Date & Type Note Facility 08-21-2022 Evaluation note Encounter Date Diagnosis Assessment Notes Jul, Acute non-recurrent frontal sinusitis (ICD-10 - J01.10) [facility] Other 03-14-2023 Evaluation note* Encounter Date Diagnosis Assessment Notes Treatment Notes Treatment Clinical Notes Jul, Dysuria (ICD-10 - R30.0) [facility] Other 11-01-2022 Evaluation note* Encounter Date Diagnosis Assessment Notes Treatment Notes Treatment Clinical Notes Mar, Anxiety (ICD-10 - F41.9) [facility] Other 10-07-2022 Evaluation note* Encounter Date Diagnosis Assessment Notes Treatment Notes Treatment Clinical Notes Feb, Encntr for general adult medical exam w/o abnormal findings (ICD-10 - Z00.00) Feb, Other No change today...Continue as is...FU 6 months.... [facility] Other 09-21-2022 Evaluation note* Encounter Date Diagnosis Assessment Notes Treatment Notes Treatment Clinical Notes Jan, Contact with and (suspected) exposure to other viral communicable diseases (ICD-10 - Z20.828) [facility] Other 09-19-2022 Evaluation note* Encounter Date Diagnosis Assessment Notes Treatment Notes Treatment Clinical Notes Jan, Contact with and (suspected) exposure to other viral communicable diseases (ICD-10 - Z20.828) [facility] Other 08-26-2022 Evaluation note* Encounter Date Diagnosis Assessment Notes Treatment Notes Treatment Clinical Notes Dec, Anxiety (ICD-10 - F41.9) E Rx sent. Lengthy discussion with patient that I think we need to try something than just a straight SSRI. We will see patient back in review. We talked about potential side effects as well as outcomes. She will call with any concerns. [facility] Other 08-20-2022 Evaluation note* Encounter Date Diagnosis Assessment Notes Treatment Notes Treatment Clinical Notes Dec, Contact with and (suspected) exposure to other viral communicable diseases (ICD-10 - Z20.828) [facility] Other 10-11-2021 Evaluation note* Encounter Date Diagnosis Assessment Notes Treatment Notes Treatment Clinical Notes Feb, Encntr for general adult medical exam w/o abnormal findings (ICD-10 - Z00.00) Feb, Other No change today...Continue as is...FU PRN/Yearly... [facility] Other Evaluation noteNo InformationNort [employer] Other History general Narrative - Reported* Type Description Date Medical History Hx of MRSA Medical History anxiety Surgical History tonsillectomy and adenoidectomy 2012 Surgical History c-sections 2009 and 2016 Hospitalization History C Sections [facility] Other Summary Purpose Family History No Family History Records FoundNo Family History Records FoundNo Family History Records Found Advance Directives No Advanced Directives Records FoundNo Advanced Directives Records FoundNo Advanced Directives Records Found Additional Source Comments INFORMATION SOURCE (unrecogn ized section and content) DATE CREATED AUTHOR 12/19/2020 [facility] DATE CREATED AUTHOR AUTHOR'S ORGANIZ ATION 08/09/[address] 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, SORE THROAT, H/Aanxiety, pt says she only tried the zoloft for a few months and stopped because of constant hunger/ weight gain- has tried lexapro in past and she felt very hot/ hot flashes- couldn't even drink 1 glass of wine and would start sweating, with work, busy homelife, she is trying to deal with the anxiety/ depression without meds, but realizes she may need something and wants to discuss 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 This clinical summary was aggregated from multiple sources. Caution should be exercised in using it in the provision of clinical care. This summary normalizes information from multiple sources, and as a consequence, information in this document may materially change the coding, format and clinical context of patient data. In addition, data may be omitted in some cases. CLINICAL DECISIONS SHOULD BE BASED ON THE PRIMARY CLINICAL RECORDS. [facility] [employer] [facility] provides no warranty or guarantee of the accuracy or completeness of information in this document.
== END 2023-05-27 07:58 | disposition home or self-care (01) ==
LOC: US 07:57
PROVIDERS: PCP Family Medicine; Visit Provider Obstetrics & Gynecology
DX: O26.843 Uterine size-date discrepancy, third trimester (principal); Z3A.28 28 weeks gestation of pregnancy
CPT/HCPCS: 76816

== ENCOUNTER 2023-06-24 07:36 | Outpatient (OUT) | payer BC, OTHER, SELFPAY ==
--- NOTE | 2023-06-24 07:37 | US_ITS ---
[address] [address] Patient Name: JARVIS MACEDO MRN: [id number] date: 1995 Sex: F Assigned Patient Location: [facility] Current Patient Location: [facility] Accession/Order Number: [id number] Exam Date: 06/24/2023 07:40 Report Date: 06/24/2023 08:17 At the request of: TALITA LEARY Procedure: US OB growth EXAMINATION: US OB growth HISTORY: LGA COMPARISON: No relevant comparison available. FINDINGS: Heart Rate: 132.0 bpm Amniotic Fluid Volume: 9.9 cm Number: 1.0 Position: Cephalic presentation, longitudinal lie Maximum Vertical Pocket: 2.2 cm cm 3.0 cm cm 1.9 cm cm 2.8 cm cm BIOMETRY: BPD: 8.8 cm cm; 35 weeks 3 days; >97% HC: 31.7 cmcm; 35 weeks 5 days , 80% AC: 30.6 cm cm; 34 weeks 4 days, 93% FL: 6.6 cm cm; 33 weeks 6 days; 71.4 % % EFW: 2451.3 grams, 5 lbs. 6 oz., 93% FL/AC: 21.5 FL/BPD: 74.8 HC/AC: 1.0 GESTATIONAL AGE: Age by EDC: 32 weeks 4 days TONJA by EDC: 08/15/2023 Age by US: 34 weeks 6 days TONJA by US: 07/30/2023 US/US OB growth IMPRESSION: BPD greater than the 97th percentile Estimated weight at the 93rd percentile Electronically authenticated by: REBEL FRANK Date: 06/24/2023 08:17
--- OUTSIDE RECORDS SUMMARY | 2023-06-24 07:39 | XMS_ITS | CCD ---
Author Name Unknown Address [address] [place] [address] Organization [facility] Care Team Providers Care Realtime Reporter Name Role Phone TARYN, DR GA Primary Care Unavailable MAGUE, DR MAUDE Pathak Admitting Unavailabl e REINECK, DR MAUDE Pathak Consulting Unavailabl e MAGUE, DR MAUDE Pathak Attending Unavailabl e Jackie Willett Unavailable Max, Urban Unavailable Georgie Disla Unavailable Asim Garber Admitting Unavailable Asim Garber Attending Unavailable Max, Urban MMarilyn Primary Care Unavailable Max, Urban MMarilyn Attending Unavailable Max, Urban MMarilyn Admitting Unavailable Max, Urban M. 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] Onset: 12-16-2020 Episodic Other upper respiratory infections (1 source) Acute frontal sinusitis, unspecified Episodic Residual codes; unclassified (11 sources) Insomnia; Translations: [Insomnia, unspecified] Episodic Results Test Name Value Interpretation Reference Range Facil hiram Urine Cultureon 08-07-2022 Urine Culture >100,000 [employer] Other Urine Culture <16 Susceptible [employer] Other Urine Culture <8/4 Susceptible [employer] Other Urine Culture >16 Resistant [employer] Other Urine Culture <4 Susceptible [employer] Other Urine Culture <2 Susceptible [employer] Other Urine Culture <1 Susceptible [employer] Other Urine Culture <0.25 Susceptible [employer] Other Urine Culture <0.5 Susceptible [employer] Other Urine Culture >8 Resistant [employer] Other Urine Culture <32 Susceptible [employer] Other Urine Culture 4 Susceptible [employer] Other Urine Culture >2/38 Resistant [employer] Other Bacteria identified Cx Nom (U) Reason for Exam Dysuria Urine Reason for Exam: Dysuria : Urine ORGANISM: Escherichia coli (O:ESCCOL) Angwin Count >100,000 Aerobic REMY Charge (NMIC56) ----- [...] RESISTANT TO ALL B-LACTAM DRUGS. PERFORMED BY: [place] [address] PATHOLOGIST RN PATIENT CARE ROBERT WEBB M.D. [facility] Comment on above: Performed By: #### C UU #### [address] SARS-CoV-2 (COVID-19) RNA NA A+probe Ql (Resp)on 02-13-2022 SARS-CoV-2 (COVID-19) RNA CLAY+probe Ql (Unsp spec) Positive [employer] Other SARS-CoV-2 (COVID-19) RNA NA A+probe Ql (Resp)on 02-11-2022 SARS-CoV-2 (COVID-19) RNA CLAY+probe Ql (Unsp spec) Negative [employer] Other SARS-CoV-2 (COVID-19) RNA NA A+probe Ql (Resp)on 01-12-2022 SARS-CoV-2 (COVID-19) RNA CLAY+probe Ql (Unsp spec) Negative [employer] Other Employee Comp Metabolic Pane jakob 01-07-2022 Albumin [Mass/Vol] 4.0 g/dL Normal 3.2-5.5 [facility] Comment on above: Performed By: #### P ILLAR LIPID, PILLAR TSH, PILLAR CBC, PILLAR CMP #### [facility] [address] [place] [address] #### NICOTINE QUAL #### [facility] , Albumin/Globulin [Mass ratio] 1.4 {ratio} Normal [facility] Comment on above: Performed By: #### P ILLAR LIPID, PILLAR TSH, PILLAR CBC, PILLAR CMP #### [facility] [address] [place] [address] #### NICOTINE QUAL #### [facility] , ALP [Catalytic activity/Vol] 72 U/L Normal 32-92 [facility] Comment on above: Performed By: #### P ILLAR LIPID, PILLAR TSH, PILLAR CBC, PILLAR CMP #### [facility] [address] [place] [address] #### NICOTINE QUAL #### [facility] , ALT [Catalytic activity/Vol] 20 U/L Normal 10-60 [facility] Comment on above: Performed By: #### P ILLAR LIPID, PILLAR TSH, PILLAR CBC, PILLAR CMP #### [facility] [address] [place] [address] [place] #### NICOTINE QUAL #### [facility] , AST [Catalytic activity/Vol] 23 U/L Normal 10-42 [facility] Comment on above: Performed By: #### P ILLAR LIPID, PILLAR TSH, PILLAR CBC, PILLAR CMP #### [facility] [address] [place] [address] [place] #### NICOTINE QUAL #### [facility] , Bilirubin [Mass/Vol] 0.4 mg/dL Normal 0.3-1.2 [facility] Comment on above: Performed By: #### P ILLAR LIPID, PILLAR TSH, PILLAR CBC, PILLAR CMP #### [facility] [address] [place] [address] [place] #### NICOTINE QUAL #### [facility] , Calcium [Mass/Vol] 9.6 mg/dL Normal 8.2-10.2 [facility] Comment on above: Performed By: #### P ILLAR LIPID, PILLAR TSH, PILLAR CBC, PILLAR CMP #### [facility] [address] [place] [address] [place] #### NICOTINE QUAL #### [facility] , Chloride [Moles/Vol] 101 mmol/L Normal 95-114 [facility] Comment on above: Performed By: #### P ILLAR LIPID, PILLAR TSH, PILLAR CBC, PILLAR CMP #### [facility] [address] [place] [address] [place] #### NICOTINE QUAL #### [facility] , CO2 [Moles/Vol] 24.9 mmol/L Normal 22.0-30.0 [facility] Comment on above: Performed By: #### P ILLAR LIPID, PILLAR TSH, PILLAR CBC, PILLAR CMP #### [facility] [address] [place] [address] [place] #### NICOTINE QUAL #### [facility] , Creatinine [Mass/Vol] 0.72 mg/dL Normal 0.44-1.03 [facility] Comment on above: Performed By: #### P ILLAR LIPID, PILLAR TSH, PILLAR CBC, PILLAR CMP #### [facility] [address] [place] [address] [place] #### NICOTINE QUAL #### [facility] , Estimated GFR ( Katelin > 60 Normal [facility] Comment on above: Result Comment: GFR estimated reference range: According to KDOQI guidelines, <60 ml/min/1.73m2 is sufficient to diagnose a patient with chronic kidney disease. Performed By: #### P ILLAR LIPID, PILLAR TSH, PILLAR CBC, PILLAR CMP #### [facility] [address] [place] [address] [place] #### NICOTINE QUAL #### [facility] , Estimated GFR (Non- Am > 60 Normal [facility] Comment on above: Performed By: #### P ILLAR LIPID, PILLAR TSH, PILLAR CBC, PILLAR CMP #### [facility] [address] [place] [address] [place] #### NICOTINE QUAL #### [facility] , Globulin (S) [Mass/Vol] 2.8 g/dL Normal [facility] Comment on above: Performed By: #### P ILLAR LIPID, PILLAR TSH, PILLAR CBC, PILLAR CMP #### [facility] [address] [place] [address] [place] #### NICOTINE QUAL #### [facility] , Glucose [Mass/Vol] 91 mg/dL Normal 70-100 [facility] Comment on above: Performed By: #### P ILLAR LIPID, PILLAR TSH, PILLAR CBC, PILLAR CMP #### [facility] [address] [place] [address] [place] #### NICOTINE QUAL #### [facility] , Potassium [Moles/Vol] 4.3 mmol/L Normal 3.5-5.1 [facility] Comment on above: Performed By: #### P ILLAR LIPID, PILLAR TSH, PILLAR CBC, PILLAR CMP #### [facility] [address] [place] [address] [place] #### NICOTINE QUAL #### [facility] , Protein [Mass/Vol] 6.8 g/dL Normal 6.1-7.9 [facility] Comment on above: Performed By: #### P ILLAR LIPID, PILLAR TSH, PILLAR CBC, PILLAR CMP #### [facility] [address] [place] [address] [place] #### NICOTINE QUAL #### [facility] , Sodium [Moles/Vol] 134 mmol/L Low 136-146 [facility] Comment on above: Performed By: #### P ILLAR LIPID, PILLAR TSH, PILLAR CBC, PILLAR CMP #### [facility] [address] [place] [address] #### NICOTINE QUAL #### [facility] , Urea nitrogen [Mass/Vol] 10 mg/dL Normal 9-23 [facility] Comment on above: Performed By: #### P ILLAR LIPID, PILLAR TSH, PILLAR CBC, PILLAR CMP #### [address] #### NICOTINE QUAL #### [facility] , Employee Complete Blood Coun ton 01-07-2022 Basophils (Bld) [#/Vol] 0.0 10*3/uL Normal 0.0-0.2 [facility] Comment on above: Result Comment: PERF ORMED BY: [place] [address] PATHOLOGIST RN PATIENT CARE ROBERT WEBB M.D. Performed By: #### P ILLAR LIPID, PILLAR TSH, PILLAR CBC, PILLAR CMP #### [address] #### NICOTINE QUAL #### [facility] , Basophils/100 WBC (Bld) 0.5 % Normal . [facility] Comment on above: Performed By: #### P ILLAR LIPID, PILLAR TSH, PILLAR CBC, PILLAR CMP #### [address] #### NICOTINE QUAL #### [facility] , Eosinophils (Bld) [#/Vol] 0.1 10*3/uL Normal 0.0-0.45 [facility] Comment on above: Performed By: #### P ILLAR LIPID, PILLAR TSH, PILLAR CBC, PILLAR CMP #### [place] [address] [place] #### NICOTINE QUAL #### [facility] , Eosinophils/100 WBC (Bld) 1.2 % Normal . [facility] Comment on above: Performed By: #### P ILLAR LIPID, PILLAR TSH, PILLAR CBC, PILLAR CMP #### [facility] [address] [place] [address] [place] #### NICOTINE QUAL #### [facility] , Erythrocyte distribution width (RBC) [Ratio] 16.0 % High 11.9-15.3 [facility] Comment on above: Performed By: #### P ILLAR LIPID, PILLAR TSH, PILLAR CBC, PILLAR CMP #### [address] #### NICOTINE QUAL #### [facility] , Hematocrit (Bld) [Volume fraction] 38.7 % Normal 34.0-46.4 [facility] Comment on above: Performed By: #### P ILLAR LIPID, PILLAR TSH, PILLAR CBC, PILLAR CMP #### [address] #### NICOTINE QUAL #### [facility] , Hemoglobin (Bld) [Mass/Vol] 12.7 g/dL Normal 11.8-15.4 [facility] Comment on above: Performed By: #### P ILLAR LIPID, PILLAR TSH, PILLAR CBC, PILLAR CMP #### [place] [address] [place] #### NICOTINE QUAL #### [facility] , Lymphocytes (Bld) [#/Vol] 2.8 10*3/uL Normal 1.00-4.8 [facility] Comment on above: Performed By: #### P ILLAR LIPID, PILLAR TSH, PILLAR CBC, PILLAR CMP #### [facility] [address] [place] [address] [place] #### NICOTINE QUAL #### [facility] , Lymphocytes/100 WBC (Bld) 40.3 % Normal . [facility] Comment on above: Performed By: #### P ILLAR LIPID, PILLAR TSH, PILLAR CBC, PILLAR CMP #### [place] [address] [place] #### NICOTINE QUAL #### [facility] , MCH (RBC) [Entitic mass] 27.5 pg Normal 24.7-34.3 [facility] Comment on above: Performed By: #### P ILLAR LIPID, PILLAR TSH, PILLAR CBC, PILLAR CMP #### [facility] [address] [place] [address] #### NICOTINE QUAL #### [facility] , MCV (RBC) [Entitic vol] 84.2 fL Normal 80-100 [facility] Comment on above: Performed By: #### P ILLAR LIPID, PILLAR TSH, PILLAR CBC, PILLAR CMP #### [address] #### NICOTINE QUAL #### [facility] , Mean Corpuscular HGB Conc 32.7 g/dL Normal 32.0-35.0 [facility] Comment on above: Performed By: #### P ILLAR LIPID, PILLAR TSH, PILLAR CBC, PILLAR CMP #### [address] #### NICOTINE QUAL #### [facility] , Monocytes (Bld) [#/Vol] 0.3 10*3/uL Normal 0.0-0.8 [facility] Comment on above: Performed By: #### P ILLAR LIPID, PILLAR TSH, PILLAR CBC, PILLAR CMP #### [place] [address] [place] #### NICOTINE QUAL #### [facility] , Monocytes/100 WBC (Bld) 5.0 % Normal . [facility] Comment on above: Performed By: #### P ILLAR LIPID, PILLAR TSH, PILLAR CBC, PILLAR CMP #### [place] [address] [place] #### NICOTINE QUAL #### [facility] , Neutrophils (Bld) [#/Vol] 3.7 10*3/uL Normal 1.8-7.7 [facility] Comment on above: Performed By: #### P ILLAR LIPID, PILLAR TSH, PILLAR CBC, PILLAR CMP #### [facility] [address] [place] [address] [place] #### NICOTINE QUAL #### [facility] , Neutrophils/100 WBC (Bld) 53.0 % Normal . [facility] Comment on above: Performed By: #### P ILLAR LIPID, PILLAR TSH, PILLAR CBC, PILLAR CMP #### [facility] [address] [place] [address] #### NICOTINE QUAL #### [facility] , Nucleated RBC/100 WBC (Bld) [Ratio] 0.1 % Normal 0-0.5 [facility] Comment on above: Performed By: #### P ILLAR LIPID, PILLAR TSH, PILLAR CBC, PILLAR CMP #### [facility] [address] [place] [address] [place] #### NICOTINE QUAL #### [facility] , Platelet mean volume (Bld) [Entitic vol] 7.8 fL Normal 6.3-10.7 [facility] Comment on above: Performed By: #### P ILLAR LIPID, PILLAR TSH, PILLAR CBC, PILLAR CMP #### [facility] [address] [place] [address] [place] #### NICOTINE QUAL #### [facility] , Platelets (Bld) [#/Vol] 297 10*3/uL Normal 150-450 [facility] Comment on above: Performed By: #### P ILLAR LIPID, PILLAR TSH, PILLAR CBC, PILLAR CMP #### [facility] [address] [place] [address] [place] #### NICOTINE QUAL #### [facility] , RBC (Bld) [#/Vol] 4.60 10*6/uL Normal 3.60-5.00 [facility] Comment on above: Performed By: #### P ILLAR LIPID, PILLAR TSH, PILLAR CBC, PILLAR CMP #### [facility] [address] [place] [address] #### NICOTINE QUAL #### [facility] , WBC (Bld) [#/Vol] 6.9 10*3/uL Normal 4.5-11.0 [facility] Comment on above: Performed By: #### P ILLAR LIPID, PILLAR TSH, PILLAR CBC, PILLAR CMP #### [address] #### NICOTINE QUAL #### [facility] , Employee Lipid Profileon Cholesterol [Mass/Vol] 163 mg/dL Normal 140-200 [facility] Comment on above: Result Comment: Chol less than 200 mg/dl low risk Chol 201-239 mg/dl borderline risk Chol 240 mg/dl and greater high risk Performed By: #### P ILLAR LIPID, PILLAR TSH, PILLAR CBC, PILLAR CMP #### [address] #### NICOTINE QUAL #### [facility] , Cholesterol in HDL [Mass/Vol] 57 mg/dL Normal 35-85 [facility] Comment on above: Result Comment: HDL CHOL ATP-III CLASSIFICATION Cardiovascular Risk HDL > or equal to 60 mg/dL LOW HDL < 40 mg/dL HIGH Performed By: #### P ILLAR LIPID, PILLAR TSH, PILLAR CBC, PILLAR CMP #### [facility] [address] [place] [address] [place] #### NICOTINE QUAL #### [facility] , Cholesterol.total/ Cholesterol in HDL [Mass ratio] 2.9 {ratio} Normal <5.0 [facility] Comment on above: Performed By: #### P ILLAR LIPID, PILLAR TSH, PILLAR CBC, PILLAR CMP #### [facility] [address] [place] [address] [place] #### NICOTINE QUAL #### [facility] , LDL Cholesterol,Calcul ated 99 mg/dL Normal 0-100 [facility] Comment on above: Result Comment: LDL ATP III CLASSIFICATION LDL less than 100 mg/dL Optimal LDL 100-129 mg/dL Near or above optimal LDL 130-159 mg/dL Borderline high LDL 160-189 mg/dL High LDL greater than 189 mg/dL Very high Performed By: #### P ILLAR LIPID, PILLAR TSH, PILLAR CBC, PILLAR CMP #### [address] #### NICOTINE QUAL #### [facility] , Triglyceride w/Reflex 34 mg/dL Low 35-149 [facility] Comment on above: Result Comment: TRIG ATP III CLASSIFICATION TRIG less than 150 mg/dL Normal TRIG 150-199 mg/dL Borderline high TRIG 200-500 mg/dL High TRIG greater than 500 mg/dL Very high Standard traceable to the Center for Disease Conrtrol and Prevention (CDC) test method. Performed By: #### P ILLAR LIPID, PILLAR TSH, PILLAR CBC, PILLAR CMP #### [place] [address] [place] #### NICOTINE QUAL #### [facility] , VLDL CHOLESTEROL 6 mg/dL Normal [facility] Comment on above: Performed By: #### P ILLAR LIPID, PILLAR TSH, PILLAR CBC, PILLAR CMP #### [facility] [address] [place] [address] #### NICOTINE QUAL #### [facility] , Employee Thyroid Stim Hormon jason 01-07-2022 Employee Thyroid Stim Hormone 2.14 u[iU]/mL Normal 0.45-5.33 [facility] Comment on above: Result Comment: PERF ORMED BY: [place] [address] PATHOLOGIST RN PATIENT CARE ROBERT WEBB M.D. Performed By: #### P ILLAR LIPID, PILLAR TSH, PILLAR CBC, PILLAR CMP #### [facility] [address] [place] [address] [place] #### NICOTINE QUAL #### [facility] , Nicotine Metabolite, [place] 01-07-2022 Nicotine Metabolite Negative Normal Cutoff=25 [facility] Comment on above: Result Comment: Perf ormed at: - [facility] [id number] Regional Engagement Consultant: Josh Ortez MD, Phone: [phone] PERFORMED BY: [facility] [address] [place] [address] PATHOLOGIST RN PATIENT CARE ROBERT WEBB M.D. Performed By: #### P ILLAR LIPID, PILLAR TSH, PILLAR CBC, PILLAR CMP #### [facility] [address] #### NICOTINE QUAL #### [facility] , XR [...] by: JACKIE WILLETT Date: 2020-12-16 14:53 Normal [facility] Vital Signs Date Time Vital Sign Value Performing Clinician Facility 03-01-2022 09:00-0400 Body height 175.26 cm Urban Max Other [employer] Other 03-01-2022 09:00-0400 Body mass index (BMI) [Ratio] 33.81 kg/m2 Urban Andrewsgles Other [employer] Other 03-01-2022 09:00-0400 Body temperature 97.9 [degF] Urban Max Other [employer] Other 03-01-2022 09:00-0400 Body weight 103.87 kg Urban Max Other [employer] Other 03-01-2022 09:00-0400 Diastolic blood pressure 80 mm[Hg] Urban Max Other [employer] Other 03-01-2022 09:00-0400 Respiratory rate 20 /min Urban Max Other [employer] Other 03-01-2022 09:00-0400 SaO2% (BldA) [Mass fraction] 97 % Urban Max Other [employer] Other 03-01-2022 09:00-0400 Systolic blood pressure 118 mm[Hg] Urban Max Other [employer] Other 01-18-2022 09:45-0400 Body height 175.26 cm Urban Max Other [employer] Other 01-18-2022 09:45-0400 Body mass index (BMI) [Ratio] 32.93 kg/m2 Urban Max Other [employer] Other 01-18-2022 09:45-0400 Body temperature 97.3 [degF] Urban Max Other [employer] Other 01-18-2022 09:45-0400 Body weight 101.15 kg Urban Max Other [employer] Other 01-18-2022 09:45-0400 Diastolic blood pressure 72 mm[Hg] Urban Max Other [employer] Other 01-18-2022 09:45-0400 Respiratory rate 20 /min Urban Max Other [employer] Other 01-18-2022 09:45-0400 SaO2% (BldA) [Mass fraction] 98 % Urban Max Other [employer] Other 01-18-2022 09:45-0400 Systolic blood pressure 112 mm[Hg] Urban Max Other [employer] Other 03-05-2021 16:15-0400 Body height 175.26 cm Urban Max Other [employer] Other 03-05-2021 16:15-0400 Body mass index (BMI) [Ratio] 35.14 kg/m2 Urban Max Other [employer] Other 03-05-2021 16:15-0400 Body weight 107.96 kg Urban Max Other [employer] Other 03-05-2021 16:15-0400 Diastolic blood pressure 68 mm[Hg] Urban Max Other [employer] Other 03-05-2021 16:15-0400 Respiratory rate 20 /min Urban Max Other [employer] Other 03-05-2021 16:15-0400 SaO2% (BldA) [Mass fraction] 98 % Urban Max Other [employer] Other 03-05-2021 16:15-0400 Systolic blood pressure 110 mm[Hg] Urban Max Other [employer] Other Encounters Encounter Date Encounter Type Care Provider Facility Start: 06-10-2023 End: 06-10-2023 ambulatory WILL GUSMAN Not Available Start: 05-27-2023 End: 05-27-2023 ambulatory WILL GUSMAN Not Available Start: 05-01-2023 End: 05-01-2023 ambulatory WILL GUSMAN Not Available Start: 09-10-2022 End: 09-10-2022 ambulatory Susanne Huitron Other [employer] Other Start: 09-10-2022 Telephone encounter [facility] Start: 08-21-2022 End: 08-21-2022 ambulatory Dontrell Gallegos Other [employer] Other Start: 08-21-2022 Telephone encounter Dontrell [facility] Start: 08-09-2022 End: 08-09-2022 ambulatory Urban Max Other [employer] Other Start: 08-09-2022 Telephone encounter Urban Max [facility] Start: 08-07-2022 End: 08-07-2022 ambulatory Urban M. Max Facility:[facility] Start: 08-06-2022 End: 08-06-2022 ambulatory Urban Max Other [employer] Other Start: 08-06-2022 Telephone encounter Urban Max [facility] Start: 03-26-2022 End: 03-26-2022 ambulatory Urban Max Other [employer] Other Start: 03-26-2022 Telephone encounter Urban Max [facility] Start: 03-01-2022 End: 03-01-2022 ambulatory Urban Max Other [employer] Other Start: 03-01-2022 Encounter for genera l adult medical examination without abnormal findings Urban Max [facility] Start: 03-01-2022 Periodic preventive med est patient 18-39 yrs Urban Max [facility] Start: 02-13-2022 End: 02-13-2022 ambulatory Georgie Nighat Other [employer] Other Start: 02-13-2022 Nursing evaluation o f patient and report Georgie Nighat [facility] Start: 02-11-2022 End: 02-11-2022 ambulatory Georgie Nighat Other [employer] Other Start: 02-11-2022 Nursing evaluation o f patient and report Georgie Nighat [facility] Start: 01-18-2022 End: 01-18-2022 ambulatory Urban Max Other [employer] Other Start: 01-18-2022 Office outpatient visit 15 minutes Urban Max [facility] Start: 01-12-2022 End: 01-12-2022 ambulatory Georgie Nighat Other [employer] Other Start: 01-12-2022 Nursing evaluation o f patient and report Georgie Nighat [facility] Start: 01-07-2022 End: 01-07-2022 ambulatory Asim Garber Facility:[facility] Start: 03-05-2021 Encounter for genera l adult medical examination without abnormal findings Urban Max [facility] Start: 03-05-2021 Periodic preventive med est patient 18-39 yrs Urban Max [facility] Start: 12-16-2020 End: 12-16-[address] DOCTOR RAMIREZ Facility:[facility] Procedures Date Procedure Procedure Detail Performing Clinician Start: 08-07-2022 Piperacillin/tazobactam Urban [facility] Other Immunizations Immunization Date Immunization Notes Care Provider [place] 02-27-2021 influenza, seasonal, injectable Urban Max Other [employer] Other 02-29-2020 influenza, injectable, quadrivalent, contains preservative Urban Max Other [employer] Other 02-07-2020 influenza, injectable, quadrivalent, contains preservative Patient Objection Urban Max Other [employer] Other NEGATED: Highlighted row has not occurred!02-07-2020 influenza, injectable, quadrivalent, contains preservative Patient Objection Georgie Disla Other [employer] Other Payers Date Payer Category Payer Medicaid [id number] 2022 Unknown [id number] 2021 Self-pay 1994 Unknown [id number] 2.16.84 [id number] 1994 Unknown [id number] 2.16.84 [id number] 1994 Unknown [id number] 1994 Unknown [id number] 1959 Unknown [id number] Unknown [id number] 2.16.8 [id number] Unknown [id number] 2.16.8 [id number] Social History Date Type Detail Facility Unknown if ever smoked [employer] Other Sex Assigned At Sex Assigned At Bir th [employer] Other Clinical Notes 03-05-2021 to 08-21-2022 Note Date & Type Note Facility 08-21-2022 Evaluation note Encounter Date Diagnosis Assessment Notes Jul, Acute non-recurrent frontal sinusitis (ICD-10 - J01.10) [employer] Other 03-14-2023 Evaluation note* Encounter Date Diagnosis Assessment Notes Treatment Notes Treatment Clinical Notes Jul, Dysuria (ICD-10 - R30.0) [employer] Other 11-01-2022 Evaluation note* Encounter Date Diagnosis Assessment Notes Treatment Notes Treatment Clinical Notes Mar, Anxiety (ICD-10 - F41.9) [employer] Other 10-07-2022 Evaluation note* Encounter Date Diagnosis Assessment Notes Treatment Notes Treatment Clinical Notes Feb, Encntr for general adult medical exam w/o abnormal findings (ICD-10 - Z00.00) Feb, Other No change today...Continue as is...FU 6 months.... [employer] Other 09-21-2022 Evaluation note* Encounter Date Diagnosis Assessment Notes Treatment Notes Treatment Clinical Notes Jan, Contact with and (suspected) exposure to other viral communicable diseases (ICD-10 - Z20.828) [employer] Other 09-19-2022 Evaluation note* Encounter Date Diagnosis Assessment Notes Treatment Notes Treatment Clinical Notes Jan, Contact with and (suspected) exposure to other viral communicable diseases (ICD-10 - Z20.828) [employer] Other 08-26-2022 Evaluation note* Encounter Date Diagnosis Assessment Notes Treatment Notes Treatment Clinical Notes Dec, Anxiety (ICD-10 - F41.9) E Rx sent. Lengthy discussion with patient that I think we need to try something than just a straight SSRI. We will see patient back in review. We talked about potential side effects as well as outcomes. She will call with any concerns. [employer] Other 08-20-2022 Evaluation note* Encounter Date Diagnosis Assessment Notes Treatment Notes Treatment Clinical Notes Dec, Contact with and (suspected) exposure to other viral communicable diseases (ICD-10 - Z20.828) [employer] Other 10-11-2021 Evaluation note* Encounter Date Diagnosis Assessment Notes Treatment Notes Treatment Clinical Notes Feb, Encntr for general adult medical exam w/o abnormal findings (ICD-10 - Z00.00) Feb, Other No change today...Continue as is...FU PRN/Yearly... [employer] Other Evaluation noteNo InformationNort [employer] Other History general Narrative - Reported* Type Description Date Medical History Hx of MRSA Medical History anxiety Surgical History tonsillectomy and adenoidectomy 2012 Surgical History c-sections 2009 and 2016 Hospitalization History C Sections [employer] Other Summary Purpose Family History No Family History Records FoundNo Family History Records FoundNo Family History Records Found Advance Directives No Advanced Directives Records FoundNo Advanced Directives Records FoundNo Advanced Directives Records Found Additional Source Comments INFORMATION SOURCE (unrecogn ized section and content) DATE CREATED AUTHOR 12/19/2020 [facility] DATE CREATED AUTHOR AUTHOR'S ORGANIZ ATION 08/09/2022 [facility] DATE CREATED AUTHOR AUTHOR'S ORGANIZ ATION 06/10/2023 [facility] EPIC REASON FOR VISIT (unrecogniz ed section and content) [facility] 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 [employer] [facility]. provides no warranty or guarantee of the accuracy or completeness of information in this document.
== END 2023-06-24 07:37 | disposition home or self-care (01) ==
LOC: NOMS 07:36
PROVIDERS: PCP Family Medicine; Visit Provider Obstetrics & Gynecology
DX: O26.843 Uterine size-date discrepancy, third trimester (principal); Z3A.32 32 weeks gestation of pregnancy
CPT/HCPCS: 76816

== ENCOUNTER 2023-06-26 08:05 | Outpatient (OUT) | payer BC, OTHER, SELFPAY ==
--- OUTSIDE RECORDS SUMMARY | 2023-06-26 08:21 | XMS_ITS | CCD ---
Author Name Unknown Address [facility] [address] [place] [address] Organization [facility] Care Team Providers Care Kitchen Assistant Name Role Phone TARYN, DR GA Primary [...] Active Start: 01-18-2022 take 1 capsule by [facility] every twenty-four hours DULoxetine HCl 20 MG 1 capsule Orally Once a day for 30 day(s) Dec, Active ethinyl estradiol 0.02 mg / ferrous fumarate 75 mg / norethindrone 1 mg oral tablet (2 sources) Estrogen take 1 tablet by mouth every twenty-four hours 06/14 1-20 MG-MCG 1 tablet Orally Once [...] Test Name Value Interpretation Reference Range Facil keithy Urine Cultureon 08-07-2022 Urine Culture >100,000 [facility] Other Urine Culture <16 Susceptible [facility] Other Urine Culture <8/4 Susceptible [facility] Other Urine Culture >16 Resistant [facility] Other Urine Culture <4 Susceptible [facility] Other Urine Culture <2 Susceptible [facility] Other Urine Culture <1 Susceptible [facility] Other Urine Culture <0.25 Susceptible [facility] Other Urine Culture <0.5 Susceptible [facility] Other Urine Culture >8 Resistant [facility] Other Urine Culture <32 Susceptible [facility] Other Urine Culture 4 Susceptible [facility] Other Urine Culture >2/38 Resistant [facility] Other Bacteria identified Cx Nom (U) Reason for Exam Dysuria Urine Reason for Exam: Dysuria : Urine ORGANISM: Escherichia coli (O:ESCCOL) [place] Count >100,000 Aerobic REMY Charge ([id number]) ----- [...] RESISTANT TO ALL B-LACTAM DRUGS. PERFORMED BY: [place] [address] PATHOLOGIST SUPERINTENDENT PIER ROBERT WEBB M.D. [facility] Comment on above: Performed By: #### C UU #### [address] SARS-CoV-2 (COVID-19) RNA NA A+probe Ql (Resp)on 02-13-2022 SARS-CoV-2 (COVID-19) RNA CLAY+probe Ql (Unsp spec) Positive [facility] Other SARS-CoV-2 (COVID-19) RNA NA A+probe Ql (Resp)on 02-11-2022 SARS-CoV-2 (COVID-19) RNA CLAY+probe Ql (Unsp spec) Negative [facility] Other SARS-CoV-2 (COVID-19) RNA NA A+probe Ql (Resp)on 01-12-2022 SARS-CoV-2 (COVID-19) RNA CLAY+probe Ql (Unsp spec) Negative [facility] Other Employee Comp Metabolic Shannen robert 01-07-2022 Albumin [Mass/Vol] 4.0 g/dL Normal 3.2-5.5 [facility] Comment on above: Performed By: #### P ILLAR LIPID, PILLAR TSH, PILLAR CBC, PILLAR CMP #### [facility] [address] [place] [address] #### NICOTINE QUAL #### [facility] , Albumin/Globulin [Mass ratio] 1.4 {ratio} Normal [facility] Comment on above: Performed By: #### P ILLAR LIPID, PILLAR TSH, PILLAR CBC, PILLAR CMP #### [facility] [address] [place] [address] #### NICOTINE QUAL #### [facility] , ALP [Catalytic activity/Vol] 72 U/L Normal 32-92 [facility] Comment on above: Performed By: #### P ILLAR LIPID, PILLAR TSH, PILLAR CBC, PILLAR CMP #### [facility] [address] [place] [address] #### NICOTINE QUAL #### [facility] , ALT [Catalytic activity/Vol] 20 U/L Normal 10-60 [facility] Comment on above: Performed By: #### P ILLAR LIPID, PILLAR TSH, PILLAR CBC, PILLAR CMP #### [facility] [address] [place] [address] [place] #### NICOTINE QUAL #### [facility] , AST [Catalytic activity/Vol] 23 U/L Normal 10-42 [facility] Comment on above: Performed By: #### P ILLAR LIPID, PILLAR TSH, PILLAR CBC, PILLAR CMP #### [facility] [address] [place] [address] [place] #### NICOTINE QUAL #### [facility] , Bilirubin [Mass/Vol] 0.4 mg/dL Normal 0.3-1.2 [facility] Comment on above: Performed By: #### P ILLAR LIPID, PILLAR TSH, PILLAR CBC, PILLAR CMP #### [facility] [address] [place] [address] [place] #### NICOTINE QUAL #### [facility] , Calcium [Mass/Vol] 9.6 mg/dL Normal 8.2-10.2 [facility] Comment on above: Performed By: #### P ILLAR LIPID, PILLAR TSH, PILLAR CBC, PILLAR CMP #### [facility] [address] [place] [address] [place] #### NICOTINE QUAL #### [facility] , Chloride [Moles/Vol] 101 mmol/L Normal 95-114 [facility] Comment on above: Performed By: #### P ILLAR LIPID, PILLAR TSH, PILLAR CBC, PILLAR CMP #### [facility] [address] [place] [address] #### NICOTINE QUAL #### [facility] , CO2 [Moles/Vol] 24.9 mmol/L Normal 22.0-30.0 [facility] Comment on above: Performed By: #### P ILLAR LIPID, PILLAR TSH, PILLAR CBC, PILLAR CMP #### [facility] [address] [place] [address] [place] #### NICOTINE QUAL #### [facility] , Creatinine [Mass/Vol] 0.72 mg/dL Normal 0.44-1.03 [facility] Comment on above: Performed By: #### P ILLAR LIPID, PILLAR TSH, PILLAR CBC, PILLAR CMP #### [facility] [address] [place] [address] [place] #### NICOTINE QUAL #### [facility] , Estimated GFR ( Katelin > 60 Normal [facility] Comment on above: Result Comment: GFR estimated reference range: According to KDOQI guidelines, <60 ml/min/1.73m2 is sufficient to diagnose a patient with chronic kidney disease. Performed By: #### P ILLAR LIPID, PILLAR TSH, PILLAR CBC, PILLAR CMP #### [facility] [address] [place] [address] [place] #### NICOTINE QUAL #### [facility] , Estimated GFR (Non- Am > 60 Normal [facility] Comment on above: Performed By: #### P ILLAR LIPID, PILLAR TSH, PILLAR CBC, PILLAR CMP #### [facility] [address] [place] [address] [place] #### NICOTINE QUAL #### [facility] , Globulin (S) [Mass/Vol] 2.8 g/dL Normal [facility] Comment on above: Performed By: #### P ILLAR LIPID, PILLAR TSH, PILLAR CBC, PILLAR CMP #### [facility] [address] [place] [address] [place] #### NICOTINE QUAL #### [facility] , Glucose [Mass/Vol] 91 mg/dL Normal 70-100 [facility] Comment on above: Performed By: #### P ILLAR LIPID, PILLAR TSH, PILLAR CBC, PILLAR CMP #### [facility] [address] [place] [address] [place] #### NICOTINE QUAL #### [facility] , Potassium [Moles/Vol] 4.3 mmol/L Normal 3.5-5.1 [facility] Comment on above: Performed By: #### P ILLAR LIPID, PILLAR TSH, PILLAR CBC, PILLAR CMP #### [facility] [address] [place] [address] [place] #### NICOTINE QUAL #### [facility] , Protein [Mass/Vol] 6.8 g/dL Normal 6.1-7.9 [facility] Comment on above: Performed By: #### P ILLAR LIPID, PILLAR TSH, PILLAR CBC, PILLAR CMP #### [facility] [address] [place] [address] [place] #### NICOTINE QUAL #### [facility] , Sodium [Moles/Vol] 134 mmol/L Low 136-146 [facility] Comment on above: Performed By: #### P ILLAR LIPID, PILLAR TSH, PILLAR CBC, PILLAR CMP #### [facility] [address] [place] [address] #### NICOTINE QUAL #### [facility] , Urea nitrogen [Mass/Vol] 10 mg/dL Normal 9-23 [facility] Comment on above: Performed By: #### P ILLAR LIPID, PILLAR TSH, PILLAR CBC, PILLAR CMP #### [address] #### NICOTINE QUAL #### [facility] , Employee Complete Blood Coun ton 01-07-2022 Basophils (Bld) [#/Vol] 0.0 10*3/uL Normal 0.0-0.2 [facility] Comment on above: Result Comment: PERF ORMED BY: [place] [address] PATHOLOGIST SUPERINTENDENT PIER ROBERT WEBB M.D. Performed By: #### P ILLAR LIPID, PILLAR TSH, PILLAR CBC, PILLAR CMP #### [address] #### NICOTINE QUAL #### [facility] , Basophils/100 WBC (Bld) 0.5 % Normal . [facility] Comment on above: Performed By: #### P ILLAR LIPID, PILLAR TSH, PILLAR CBC, PILLAR CMP #### [address] #### NICOTINE QUAL #### [facility] , Eosinophils (Bld) [#/Vol] 0.1 10*3/uL Normal 0.0-0.45 [facility] Comment on above: Performed By: #### P ILLAR LIPID, PILLAR TSH, PILLAR CBC, PILLAR CMP #### [facility] [address] [place] [address] [place] #### NICOTINE QUAL #### [facility] , Eosinophils/100 WBC (Bld) 1.2 % Normal . [facility] Comment on above: Performed By: #### P ILLAR LIPID, PILLAR TSH, PILLAR CBC, PILLAR CMP #### [facility] [address] [place] [address] #### NICOTINE QUAL #### [facility] , Erythrocyte distribution width (RBC) [Ratio] 16.0 % High 11.9-15.3 [facility] Comment on above: Performed By: #### P ILLAR LIPID, PILLAR TSH, PILLAR CBC, PILLAR CMP #### [address] #### NICOTINE QUAL #### [facility] , Hematocrit (Bld) [Volume fraction] 38.7 % Normal 34.0-46.4 [facility] Comment on above: Performed By: #### P ILLAR LIPID, PILLAR TSH, PILLAR CBC, PILLAR CMP #### [address] #### NICOTINE QUAL #### [facility] , Hemoglobin (Bld) [Mass/Vol] 12.7 g/dL Normal 11.8-15.4 [facility] Comment on above: Performed By: #### P ILLAR LIPID, PILLAR TSH, PILLAR CBC, PILLAR CMP #### [facility] [address] [place] [address] [place] #### NICOTINE QUAL #### [facility] , Lymphocytes (Bld) [#/Vol] 2.8 10*3/uL Normal 1.00-4.8 [facility] Comment on above: Performed By: #### P ILLAR LIPID, PILLAR TSH, PILLAR CBC, PILLAR CMP #### [place] [address] [place] #### NICOTINE QUAL #### [facility] , Lymphocytes/100 WBC (Bld) 40.3 % Normal . [facility] Comment on above: Performed By: #### P ILLAR LIPID, PILLAR TSH, PILLAR CBC, PILLAR CMP #### [facility] [address] [place] [address] [place] #### NICOTINE QUAL #### [facility] , MCH (RBC) [Entitic mass] 27.5 pg Normal 24.7-34.3 [facility] Comment on above: Performed By: #### P ILLAR LIPID, PILLAR TSH, PILLAR CBC, PILLAR CMP #### [facility] [address] [place] [address] #### NICOTINE QUAL #### [facility] , MCV (RBC) [Entitic vol] 84.2 fL Normal 80-100 [facility] Comment on above: Performed By: #### P ILLAR LIPID, PILLAR TSH, PILLAR CBC, PILLAR CMP #### [facility] [address] [place] [address] #### NICOTINE QUAL #### [facility] , Mean Corpuscular HGB Conc 32.7 g/dL Normal 32.0-35.0 [facility] Comment on above: Performed By: #### P ILLAR LIPID, PILLAR TSH, PILLAR CBC, PILLAR CMP #### [facility] [address] [place] [address] #### NICOTINE QUAL #### [facility] , Monocytes (Bld) [#/Vol] 0.3 10*3/uL Normal 0.0-0.8 [facility] Comment on above: Performed By: #### P ILLAR LIPID, PILLAR TSH, PILLAR CBC, PILLAR CMP #### [facility] [address] [place] [address] [place] #### NICOTINE QUAL #### [facility] , Monocytes/100 WBC (Bld) 5.0 % Normal . [facility] Comment on above: Performed By: #### P ILLAR LIPID, PILLAR TSH, PILLAR CBC, PILLAR CMP #### [place] [address] [place] #### NICOTINE QUAL #### [facility] , Neutrophils (Bld) [#/Vol] 3.7 10*3/uL Normal 1.8-7.7 [facility] Comment on above: Performed By: #### P ILLAR LIPID, PILLAR TSH, PILLAR CBC, PILLAR CMP #### [facility] [address] [place] [address] [place] #### NICOTINE QUAL #### [facility] , Neutrophils/100 WBC (Bld) 53.0 % Normal . [facility] Comment on above: Performed By: #### P ILLAR LIPID, PILLAR TSH, PILLAR CBC, PILLAR CMP #### [address] #### NICOTINE QUAL #### [facility] , Nucleated RBC/100 WBC (Bld) [Ratio] 0.1 % Normal 0-0.5 [facility] Comment on above: Performed By: #### P ILLAR LIPID, PILLAR TSH, PILLAR CBC, PILLAR CMP #### [facility] [address] [place] [address] [place] #### NICOTINE QUAL #### [facility] , Platelet mean volume (Bld) [Entitic vol] 7.8 fL Normal 6.3-10.7 [facility] Comment on above: Performed By: #### P ILLAR LIPID, PILLAR TSH, PILLAR CBC, PILLAR CMP #### [place] [address] [place] #### NICOTINE QUAL #### [facility] , Platelets (Bld) [#/Vol] 297 10*3/uL Normal 150-450 [facility] Comment on above: Performed By: #### P ILLAR LIPID, PILLAR TSH, PILLAR CBC, PILLAR CMP #### [facility] [address] [place] [address] [place] #### NICOTINE QUAL #### [facility] , RBC (Bld) [#/Vol] 4.60 10*6/uL Normal 3.60-5.00 [facility] Comment on above: Performed By: #### P ILLAR LIPID, PILLAR TSH, PILLAR CBC, PILLAR CMP #### [facility] [address] [place] [address] #### NICOTINE QUAL #### [facility] , WBC (Bld) [#/Vol] 6.9 10*3/uL Normal 4.5-11.0 [facility] Comment on above: Performed By: #### P ILLAR LIPID, PILLAR TSH, PILLAR CBC, PILLAR CMP #### [address] #### NICOTINE QUAL #### [facility] , Employee Lipid Profileon Cholesterol [Mass/Vol] 163 mg/dL Normal 140-200 [facility] Comment on above: Result Comment: Chol less than 200 mg/dl low risk Chol 201-239 mg/dl borderline risk Chol 240 mg/dl and greater high risk Performed By: #### P ILLAR LIPID, PILLAR TSH, PILLAR CBC, PILLAR CMP #### [address] #### NICOTINE QUAL #### [facility] , Cholesterol in HDL [Mass/Vol] 57 mg/dL Normal 35-85 [facility] Comment on above: Result Comment: HDL CHOL ATP-III CLASSIFICATION Cardiovascular Risk HDL > or equal to 60 mg/dL LOW HDL < 40 mg/dL HIGH Performed By: #### P ILLAR LIPID, PILLAR TSH, PILLAR CBC, PILLAR CMP #### [facility] [address] [place] [address] #### NICOTINE QUAL #### [facility] , Cholesterol.total/ Cholesterol in HDL [Mass ratio] 2.9 {ratio} Normal <5.0 [facility] Comment on above: Performed By: #### P ILLAR LIPID, PILLAR TSH, PILLAR CBC, PILLAR CMP #### [facility] [address] [place] [address] [place] #### NICOTINE QUAL #### [facility] , LDL Cholesterol,Calcul ated 99 mg/dL Normal 0-100 [facility] Comment on above: Result Comment: LDL ATP III CLASSIFICATION LDL less than 100 mg/dL Optimal LDL 100-129 mg/dL Near or above optimal LDL 130-159 mg/dL Borderline high LDL 160-189 mg/dL High LDL greater than 189 mg/dL Very high Performed By: #### P ILLAR LIPID, PILLAR TSH, PILLAR CBC, PILLAR CMP #### [address] #### NICOTINE QUAL #### [facility] , Triglyceride w/Reflex 34 mg/dL Low 35-149 [facility] Comment on above: Result Comment: TRIG ATP III CLASSIFICATION TRIG less than 150 mg/dL Normal TRIG 150-199 mg/dL Borderline high TRIG 200-500 mg/dL High TRIG greater than 500 mg/dL Very high Standard traceable to the Center for Disease Conrtrol and Prevention (CDC) test method. Performed By: #### P ILLAR LIPID, PILLAR TSH, PILLAR CBC, PILLAR CMP #### [address] #### NICOTINE QUAL #### [facility] , VLDL CHOLESTEROL 6 mg/dL Normal [facility] Comment on above: Performed By: #### P ILLAR LIPID, PILLAR TSH, PILLAR CBC, PILLAR CMP #### [facility] [address] [place] [address] #### NICOTINE QUAL #### [facility] , Employee Thyroid Stim Hormon jason 01-07-2022 Employee Thyroid Stim Hormone 2.14 u[iU]/mL Normal 0.45-5.33 [facility] Comment on above: Result Comment: PERF ORMED BY: [place] [address] PATHOLOGIST SUPERINTENDENT PIER JIANLAN SUN M.D. Performed By: #### P ILLAR LIPID, PILLAR TSH, PILLAR CBC, PILLAR CMP #### [facility] [address] [place] [address] [place] #### NICOTINE QUAL #### [facility] , Nicotine Metabolite, [place] 01-07-2022 Nicotine Metabolite Negative Normal Cutoff=25 [facility] Comment on above: Result Comment: Perf ormed at: - [facility] [address] [id number] Splitting Machine Operator: Josh Ortez MD, Phone: [phone] PERFORMED BY: [place] [address] PATHOLOGIST SUPERINTENDENT PIER ROBERT WEBB M.D. Performed By: #### P ILLAR LIPID, PILLAR TSH, PILLAR CBC, PILLAR CMP #### [facility] [address] [place] [address] #### NICOTINE QUAL #### [facility] , XR [...] by: JACKIE WILLETT Date: 2020-12-16 14:53 Normal [facility] Vital Signs Date Time Vital Sign Value Performing Clinician Facility 03-01-2022 09:00-0400 Body height 175.26 cm [facility] Other [facility] Other 03-01-2022 09:00-0400 Body mass index (BMI) [Ratio] 33.81 kg/m2 [facility] Other [facility] Other 03-01-2022 09:00-0400 Body temperature 97.9 [degF] [facility] Other [facility] Other 03-01-2022 09:00-0400 Body weight 103.87 kg [facility] Other [facility] Other 03-01-2022 09:00-0400 Diastolic blood pressure 80 mm[Hg] [facility] Other [facility] Other 03-01-2022 09:00-0400 Respiratory rate 20 /min [facility] Other [facility] Other 03-01-2022 09:00-0400 SaO2% (BldA) [Mass fraction] 97 % [facility] Other [facility] Other 03-01-2022 09:00-0400 Systolic blood pressure 118 mm[Hg] [facility] Other [facility] Other 01-18-2022 09:45-0400 Body height 175.26 cm [facility] Other [facility] Other 01-18-2022 09:45-0400 Body mass index (BMI) [Ratio] 32.93 kg/m2 [facility] Other [facility] Other 01-18-2022 09:45-0400 Body temperature 97.3 [degF] [facility] Other [facility] Other 01-18-2022 09:45-0400 Body weight 101.15 kg [facility] Other [facility] Other 01-18-2022 09:45-0400 Diastolic blood pressure 72 mm[Hg] [facility] Other [facility] Other 01-18-2022 09:45-0400 Respiratory rate 20 /min [facility] Other [facility] Other 01-18-2022 09:45-0400 SaO2% (BldA) [Mass fraction] 98 % [facility] Other [facility] Other 01-18-2022 09:45-0400 Systolic blood pressure 112 mm[Hg] [facility] Other [facility] Other 03-05-2021 16:15-0400 Body height 175.26 cm [facility] Other [facility] Other 03-05-2021 16:15-0400 Body mass index (BMI) [Ratio] 35.14 kg/m2 [facility] Other [facility] Other 03-05-2021 16:15-0400 Body weight 107.96 kg [facility] Other [facility] Other 03-05-2021 16:15-0400 Diastolic blood pressure 68 mm[Hg] [facility] Other [facility] Other 03-05-2021 16:15-0400 Respiratory rate 20 /min [facility] Other [facility] Other 03-05-2021 16:15-0400 SaO2% (BldA) [Mass fraction] 98 % [facility] Other [facility] Other 03-05-2021 16:15-0400 Systolic blood pressure 110 mm[Hg] [facility] Other [facility] Other Encounters Encounter Date Encounter Type Care Provider Facility Start: 06-24-2023 End: 06-24-2023 ambulatory WILL UZMA Not Available Start: 06-10-2023 End: 06-10-2023 ambulatory WILL UZMA Not Available Start: 05-27-2023 End: 05-27-2023 ambulatory WILL UZMA Not Available Start: 05-01-2023 End: 05-01-2023 ambulatory WILL UZMA Not Available Start: 09-10-2022 End: 09-10-2022 ambulatory Susanne Soraidarachel Other [facility] Other Start: 09-10-2022 Telephone encounter Susanne Perez [facility] Start: 08-21-2022 End: 08-21-2022 ambulatory Dontrell Gallegos Other [facility] Other Start: 08-21-2022 Telephone encounter Dontrell Perez [facility] Start: 08-09-2022 End: 08-09-2022 ambulatory [facility] Other [facility] Other Start: 08-09-2022 Telephone encounter [facility] Start: 08-07-2022 End: 08-07-2022 ambulatory [facility] Facility:[facility] Start: 08-06-2022 End: 08-06-2022 ambulatory [facility] Other [facility] Other Start: 08-06-2022 Telephone encounter [facility] Start: 03-26-2022 End: 03-26-2022 ambulatory [facility] Other [facility] Other Start: 03-26-2022 Telephone encounter [facility] Start: 03-01-2022 End: 03-01-2022 ambulatory [facility] Other [facility] Other Start: 03-01-2022 Encounter for genera l adult medical examination without abnormal findings [facility] Start: 03-01-2022 Periodic preventive med est patient 18-39 yrs [facility] Start: 02-13-2022 End: 02-13-2022 ambulatory Georgie Nighat Other [facility] Other Start: 02-13-2022 Nursing evaluation o f patient and report Georgie Nighat [facility] Start: 02-11-2022 End: 02-11-2022 ambulatory Georgie Nighat Other [facility] Other Start: 02-11-2022 Nursing evaluation o f patient and report Georgie Nighat [facility] Start: 01-18-2022 End: 01-18-2022 ambulatory [facility] Other [facility] Other Start: 01-18-2022 Office outpatient visit 15 minutes [facility] Start: 01-12-2022 End: 01-12-2022 ambulatory Georgie Nighat Other [facility] Other Start: 01-12-2022 Nursing evaluation o f patient and report Georgie Nighat [facility] Start: 01-07-2022 End: 01-07-2022 ambulatory Asim Garber Facility:[facility] Start: 03-05-2021 Encounter for genera l adult medical examination without abnormal findings [facility] Start: 03-05-2021 Periodic preventive med est patient 18-39 yrs [facility] Start: 12-16-2020 End: 12-16-[address] DOCTOR RAMIREZ Facility:[facility] Procedures Date Procedure Procedure Detail Performing Clinician Start: 08-07-2022 Piperacillin/tazobactam [facility] Other Immunizations Immunization Date Immunization Notes Care Provider Serjio [place] 02-27-2021 influenza, seasonal, injectable [facility] Other [facility] Other 02-29-2020 influenza, injectable, quadrivalent, contains preservative [facility] Other [facility] Other 02-07-2020 influenza, injectable, quadrivalent, contains preservative Patient Objection [facility] Other [facility] Other NEGATED: Highlighted row has not occurred!02-07-2020 influenza, injectable, quadrivalent, contains preservative Patient Objection Georgie Disla Other [facility] Other Payers Date Payer Category Payer Medicaid [id number] 2022 Unknown [id number] 2021 Self-pay 1994 Unknown [id number] 2.16.84 [id number] 1994 Unknown [id number] 2.16.84 [id number] 1994 Unknown [id number] 2.16.84 [id number] 1994 Unknown [id number] 1994 Unknown [id number] 1959 Unknown [id number] Unknown [id number] 2.16.8 [id number] Unknown [id number] 2.16.8 [id number] Social History Date Type Detail Facility Unknown if ever smoked [facility] Other Sex Assigned At Sex Assigned At Bir th [facility] Other Clinical Notes 03-05-2021 to 08-21-2022 Note Date & Type Note Facility 08-21-2022 Evaluation note Encounter Date Diagnosis Assessment Notes Jul, Acute non-recurrent frontal sinusitis (ICD-10 - J01.10) [facility] Other 03-14-2023 Evaluation note* Encounter Date Diagnosis Assessment Notes Treatment Notes Treatment Clinical Notes Jul, Dysuria (ICD-10 - R30.0) [facility] Other 11-01-2022 Evaluation note* Encounter Date Diagnosis Assessment Notes Treatment Notes Treatment Clinical Notes Mar, Anxiety (ICD-10 - F41.9) [facility] Other 10-07-2022 Evaluation note* Encounter Date Diagnosis Assessment Notes Treatment Notes Treatment Clinical Notes Feb, Encntr for general adult medical exam w/o abnormal findings (ICD-10 - Z00.00) Feb, Other No change today...Continue as is...FU 6 months.... [facility] Other 09-21-2022 Evaluation note* Encounter Date Diagnosis Assessment Notes Treatment Notes Treatment Clinical Notes Jan, Contact with and (suspected) exposure to other viral communicable diseases (ICD-10 - Z20.828) [facility] Other 09-19-2022 Evaluation note* Encounter Date Diagnosis Assessment Notes Treatment Notes Treatment Clinical Notes Jan, Contact with and (suspected) exposure to other viral communicable diseases (ICD-10 - Z20.828) [facility] Other 08-26-2022 Evaluation note* Encounter Date Diagnosis Assessment Notes Treatment Notes Treatment Clinical Notes Dec, Anxiety (ICD-10 - F41.9) E Rx sent. Lengthy discussion with patient that I think we need to try something than just a straight SSRI. We will see patient back in review. We talked about potential side effects as well as outcomes. She will call with any concerns. [facility] Other 08-20-2022 Evaluation note* Encounter Date Diagnosis Assessment Notes Treatment Notes Treatment Clinical Notes Dec, Contact with and (suspected) exposure to other viral communicable diseases (ICD-10 - Z20.828) [facility] Other 10-11-2021 Evaluation note* Encounter Date Diagnosis Assessment Notes Treatment Notes Treatment Clinical Notes Feb, Encntr for general adult medical exam w/o abnormal findings (ICD-10 - Z00.00) Feb, Other No change today...Continue as is...FU PRN/Yearly... [facility] Other Evaluation noteNo [facility] Other History general Narrative - Reported* Type Description Date Medical History Hx of MRSA Medical History anxiety Surgical History tonsillectomy and adenoidectomy 2012 Surgical History c-sections 2009 and 2017 Hospitalization History C Sections [employer] Other Summary Purpose Family History No Family History Records FoundNo Family History Records FoundNo Family History Records Found Advance Directives No Advanced Directives Records FoundNo Advanced Directives Records FoundNo Advanced Directives Records Found Additional Source Comments INFORMATION SOURCE (unrecogn ized section and content) DATE CREATED AUTHOR 12/19/2020 [facility] DATE CREATED AUTHOR AUTHOR'S ORGANIZ ATION 08/09/2022 [facility] DATE CREATED AUTHOR AUTHOR'S ORGANIZ ATION 06/25/2023 [facility] EPIC REASON FOR VISIT (unrecogniz ed section and content) [facility] [employer] [facility] 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 [employer] [facility]. provides no warranty or guarantee of the accuracy or completeness of information in this document.
[2023-06-26 16:07] VITALS: BP 123/63; PULSE 87
== END 2023-06-26 16:40 | disposition home or self-care (01) ==
LOC: FBCO 08:05 → FBC 16:02
PROVIDERS: PCP Family Medicine; Visit Provider Obstetrics & Gynecology
DX: O36.63X1 Maternal care for excessive fetal growth, third trimester, fetus 1 (principal)
CPT/HCPCS: 59025

== ENCOUNTER 2023-06-30 08:15 | Outpatient (OUT) | payer BC, OTHER, SELFPAY ==
--- OUTSIDE RECORDS SUMMARY | 2023-06-30 08:31 | XMS_ITS | CCD ---
Author Name Unknown Address [facility] [address] [place] [address] Organization [facility] Care Team Providers Care Seo Team Lead Name Role Phone TARYN, DR GA Primary [...] Active Start: 01-18-2022 take 1 capsule by [facility] every twenty-four hours DULoxetine HCl 20 [...] keithy Urine Cultureon 08-07-2022 Urine Culture >100,000 [facility] Other Urine Culture <16 Susceptible [facility] Other Urine Culture <8/4 Susceptible [facility] Other Urine Culture >16 Resistant [facility] Other Urine Culture <4 Susceptible [facility] Other Urine Culture <2 Susceptible [facility] Other Urine Culture <1 Susceptible [facility] Other Urine Culture <0.25 Susceptible [facility] Other Urine Culture <0.5 Susceptible [facility] Other Urine Culture >8 Resistant [facility] Other Urine Culture <32 Susceptible [facility] Other Urine Culture 4 Susceptible [facility] Other Urine Culture >2/38 Resistant [facility] Other Bacteria identified Cx Nom (U) Reason for Exam Dysuria Urine Reason for Exam: Dysuria : Urine ORGANISM: Escherichia coli (O:ESCCOL) [place] Count >100,000 Aerobic REMY Charge ([id number]) ----- SUSCEPTIBILITY ---- ORGANISM: O:ESCCOL ANTIBIOTIC INTERPRETATION RMEY Amikacin S <16 Amoxacillin/K Clavulanate S <8 [...] RESISTANT TO ALL B-LACTAM DRUGS. PERFORMED BY: [place] [address] PATHOLOGIST PRODUCT GRADER ROBERT WEBB M.D. [facility] Comment on above: Performed By: #### C UU #### [address] SARS-CoV-2 (COVID-19) RNA NA A+probe Ql (Resp)on 02-13-2022 SARS-CoV-2 (COVID-19) RNA CLAY+probe Ql (Unsp spec) Positive [facility] Other SARS-CoV-2 (COVID-19) RNA NA A+probe Ql (Resp)on 02-11-2022 SARS-CoV-2 (COVID-19) RNA CLAY+probe Ql (Unsp spec) Negative [facility] Other SARS-CoV-2 (COVID-19) RNA NA A+probe Ql (Resp)on 01-12-2022 SARS-CoV-2 (COVID-19) RNA CLAY+probe Ql (Unsp spec) Negative [facility] Other Employee Comp Metabolic Shannen robert 01-07-2022 Albumin [Mass/Vol] 4.0 g/dL Normal 3.2-5.5 [facility] Comment on above: Performed By: #### P ILLAR LIPID, PILLAR TSH, PILLAR CBC, PILLAR CMP #### [facility] [address] [place] [address] #### NICOTINE QUAL #### [facility] , Albumin/Globulin [Mass ratio] 1.4 {ratio} Normal [facility] Comment on above: Performed By: #### P ILLAR LIPID, PILLAR TSH, PILLAR CBC, PILLAR CMP #### [facility] [address] [place] [address] #### NICOTINE QUAL #### [facility] , ALP [Catalytic activity/Vol] 72 U/L Normal 32-92 [facility] Comment on above: Performed By: #### P ILLAR LIPID, PILLAR TSH, PILLAR CBC, PILLAR CMP #### [facility] [address] [place] [address] #### NICOTINE QUAL #### [facility] , ALT [Catalytic activity/Vol] 20 U/L Normal 10-60 [facility] Comment on above: Performed By: #### P ILLAR LIPID, PILLAR TSH, PILLAR CBC, PILLAR CMP #### [facility] [address] [place] [address] [place] #### NICOTINE QUAL #### [facility] , AST [Catalytic activity/Vol] 23 U/L Normal 10-42 [facility] Comment on above: Performed By: #### P ILLAR LIPID, PILLAR TSH, PILLAR CBC, PILLAR CMP #### [facility] [address] [place] [address] [place] #### NICOTINE QUAL #### [facility] , Bilirubin [Mass/Vol] 0.4 mg/dL Normal 0.3-1.2 [facility] Comment on above: Performed By: #### P ILLAR LIPID, PILLAR TSH, PILLAR CBC, PILLAR CMP #### [facility] [address] [place] [address] [place] #### NICOTINE QUAL #### [facility] , Calcium [Mass/Vol] 9.6 mg/dL Normal 8.2-10.2 [facility] Comment on above: Performed By: #### P ILLAR LIPID, PILLAR TSH, PILLAR CBC, PILLAR CMP #### [facility] [address] [place] [address] [place] #### NICOTINE QUAL #### [facility] , Chloride [Moles/Vol] 101 mmol/L Normal 95-114 [facility] Comment on above: Performed By: #### P ILLAR LIPID, PILLAR TSH, PILLAR CBC, PILLAR CMP #### [facility] [address] [place] [address] #### NICOTINE QUAL #### [facility] , CO2 [Moles/Vol] 24.9 mmol/L Normal 22.0-30.0 [facility] Comment on above: Performed By: #### P ILLAR LIPID, PILLAR TSH, PILLAR CBC, PILLAR CMP #### [facility] [address] [place] [address] [place] #### NICOTINE QUAL #### [facility] , Creatinine [Mass/Vol] 0.72 mg/dL Normal 0.44-1.03 [facility] Comment on above: Performed By: #### P ILLAR LIPID, PILLAR TSH, PILLAR CBC, PILLAR CMP #### [facility] [address] [place] [address] [place] #### NICOTINE QUAL #### [facility] , Estimated GFR ( Katelin > 60 Normal [facility] Comment on above: Result Comment: GFR estimated reference range: According to KDOQI guidelines, <60 ml/min/1.73m2 is sufficient to diagnose a patient with chronic kidney disease. Performed By: #### P ILLAR LIPID, PILLAR TSH, PILLAR CBC, PILLAR CMP #### [facility] [address] [place] [address] [place] #### NICOTINE QUAL #### [facility] , Estimated GFR (Non- Am > 60 Normal [facility] Comment on above: Performed By: #### P ILLAR LIPID, PILLAR TSH, PILLAR CBC, PILLAR CMP #### [facility] [address] [place] [address] [place] #### NICOTINE QUAL #### [facility] , Globulin (S) [Mass/Vol] 2.8 g/dL Normal [facility] Comment on above: Performed By: #### P ILLAR LIPID, PILLAR TSH, PILLAR CBC, PILLAR CMP #### [facility] [address] [place] [address] [place] #### NICOTINE QUAL #### [facility] , Glucose [Mass/Vol] 91 mg/dL Normal 70-100 [facility] Comment on above: Performed By: #### P ILLAR LIPID, PILLAR TSH, PILLAR CBC, PILLAR CMP #### [facility] [address] [place] [address] [place] #### NICOTINE QUAL #### [facility] , Potassium [Moles/Vol] 4.3 mmol/L Normal 3.5-5.1 [facility] Comment on above: Performed By: #### P ILLAR LIPID, PILLAR TSH, PILLAR CBC, PILLAR CMP #### [facility] [address] [place] [address] [place] #### NICOTINE QUAL #### [facility] , Protein [Mass/Vol] 6.8 g/dL Normal 6.1-7.9 [facility] Comment on above: Performed By: #### P ILLAR LIPID, PILLAR TSH, PILLAR CBC, PILLAR CMP #### [facility] [address] [place] [address] [place] #### NICOTINE QUAL #### [facility] , Sodium [Moles/Vol] 134 mmol/L Low 136-146 [facility] Comment on above: Performed By: #### P ILLAR LIPID, PILLAR TSH, PILLAR CBC, PILLAR CMP #### [facility] [address] [place] [address] #### NICOTINE QUAL #### [facility] , Urea nitrogen [Mass/Vol] 10 mg/dL Normal 9-23 [facility] Comment on above: Performed By: #### P ILLAR LIPID, PILLAR TSH, PILLAR CBC, PILLAR CMP #### [address] #### NICOTINE QUAL #### [facility] , Employee Complete Blood Coun ton 01-07-2022 Basophils (Bld) [#/Vol] 0.0 10*3/uL Normal 0.0-0.2 [facility] Comment on above: Result Comment: PERF ORMED BY: [place] [address] PATHOLOGIST PRODUCT GRADER ROBERT WEBB M.D. Performed By: #### P ILLAR LIPID, PILLAR TSH, PILLAR CBC, PILLAR CMP #### [address] #### NICOTINE QUAL #### [facility] , Basophils/100 WBC (Bld) 0.5 % Normal . [facility] Comment on above: Performed By: #### P ILLAR LIPID, PILLAR TSH, PILLAR CBC, PILLAR CMP #### [address] #### NICOTINE QUAL #### [facility] , Eosinophils (Bld) [#/Vol] 0.1 10*3/uL Normal 0.0-0.45 [facility] Comment on above: Performed By: #### P ILLAR LIPID, PILLAR TSH, PILLAR CBC, PILLAR CMP #### [facility] [address] [place] [address] [place] #### NICOTINE QUAL #### [facility] , Eosinophils/100 WBC (Bld) 1.2 % Normal . [facility] Comment on above: Performed By: #### P ILLAR LIPID, PILLAR TSH, PILLAR CBC, PILLAR CMP #### [facility] [address] [place] [address] #### NICOTINE QUAL #### [facility] , Erythrocyte distribution width (RBC) [Ratio] 16.0 % High 11.9-15.3 [facility] Comment on above: Performed By: #### P ILLAR LIPID, PILLAR TSH, PILLAR CBC, PILLAR CMP #### [address] #### NICOTINE QUAL #### [facility] , Hematocrit (Bld) [Volume fraction] 38.7 % Normal 34.0-46.4 [facility] Comment on above: Performed By: #### P ILLAR LIPID, PILLAR TSH, PILLAR CBC, PILLAR CMP #### [address] #### NICOTINE QUAL #### [facility] , Hemoglobin (Bld) [Mass/Vol] 12.7 g/dL Normal 11.8-15.4 [facility] Comment on above: Performed By: #### P ILLAR LIPID, PILLAR TSH, PILLAR CBC, PILLAR CMP #### [facility] [address] [place] [address] [place] #### NICOTINE QUAL #### [facility] , Lymphocytes (Bld) [#/Vol] 2.8 10*3/uL Normal 1.00-4.8 [facility] Comment on above: Performed By: #### P ILLAR LIPID, PILLAR TSH, PILLAR CBC, PILLAR CMP #### [place] [address] [place] #### NICOTINE QUAL #### [facility] , Lymphocytes/100 WBC (Bld) 40.3 % Normal . [facility] Comment on above: Performed By: #### P ILLAR LIPID, PILLAR TSH, PILLAR CBC, PILLAR CMP #### [facility] [address] [place] [address] [place] #### NICOTINE QUAL #### [facility] , MCH (RBC) [Entitic mass] 27.5 pg Normal 24.7-34.3 [facility] Comment on above: Performed By: #### P ILLAR LIPID, PILLAR TSH, PILLAR CBC, PILLAR CMP #### [facility] [address] [place] [address] #### NICOTINE QUAL #### [facility] , MCV (RBC) [Entitic vol] 84.2 fL Normal 80-100 [facility] Comment on above: Performed By: #### P ILLAR LIPID, PILLAR TSH, PILLAR CBC, PILLAR CMP #### [facility] [address] [place] [address] #### NICOTINE QUAL #### [facility] , Mean Corpuscular HGB Conc 32.7 g/dL Normal 32.0-35.0 [facility] Comment on above: Performed By: #### P ILLAR LIPID, PILLAR TSH, PILLAR CBC, PILLAR CMP #### [facility] [address] [place] [address] #### NICOTINE QUAL #### [facility] , Monocytes (Bld) [#/Vol] 0.3 10*3/uL Normal 0.0-0.8 [facility] Comment on above: Performed By: #### P ILLAR LIPID, PILLAR TSH, PILLAR CBC, PILLAR CMP #### [facility] [address] [place] [address] [place] #### NICOTINE QUAL #### [facility] , Monocytes/100 WBC (Bld) 5.0 % Normal . [facility] Comment on above: Performed By: #### P ILLAR LIPID, PILLAR TSH, PILLAR CBC, PILLAR CMP #### [place] [address] [place] #### NICOTINE QUAL #### [facility] , Neutrophils (Bld) [#/Vol] 3.7 10*3/uL Normal 1.8-7.7 [facility] Comment on above: Performed By: #### P ILLAR LIPID, PILLAR TSH, PILLAR CBC, PILLAR CMP #### [facility] [address] [place] [address] [place] #### NICOTINE QUAL #### [facility] , Neutrophils/100 WBC (Bld) 53.0 % Normal . [facility] Comment on above: Performed By: #### P ILLAR LIPID, PILLAR TSH, PILLAR CBC, PILLAR CMP #### [address] #### NICOTINE QUAL #### [facility] , Nucleated RBC/100 WBC (Bld) [Ratio] 0.1 % Normal 0-0.5 [facility] Comment on above: Performed By: #### P ILLAR LIPID, PILLAR TSH, PILLAR CBC, PILLAR CMP #### [facility] [address] [place] [address] [place] #### NICOTINE QUAL #### [facility] , Platelet mean volume (Bld) [Entitic vol] 7.8 fL Normal 6.3-10.7 [facility] Comment on above: Performed By: #### P ILLAR LIPID, PILLAR TSH, PILLAR CBC, PILLAR CMP #### [place] [address] [place] #### NICOTINE QUAL #### [facility] , Platelets (Bld) [#/Vol] 297 10*3/uL Normal 150-450 [facility] Comment on above: Performed By: #### P ILLAR LIPID, PILLAR TSH, PILLAR CBC, PILLAR CMP #### [facility] [address] [place] [address] [place] #### NICOTINE QUAL #### [facility] , RBC (Bld) [#/Vol] 4.60 10*6/uL Normal 3.60-5.00 [facility] Comment on above: Performed By: #### P ILLAR LIPID, PILLAR TSH, PILLAR CBC, PILLAR CMP #### [facility] [address] [place] [address] #### NICOTINE QUAL #### [facility] , WBC (Bld) [#/Vol] 6.9 10*3/uL Normal 4.5-11.0 [facility] Comment on above: Performed By: #### P ILLAR LIPID, PILLAR TSH, PILLAR CBC, PILLAR CMP #### [address] #### NICOTINE QUAL #### [facility] , Employee Lipid Profileon Cholesterol [Mass/Vol] 163 mg/dL Normal 140-200 [facility] Comment on above: Result Comment: Chol less than 200 mg/dl low risk Chol 201-239 mg/dl borderline risk Chol 240 mg/dl and greater high risk Performed By: #### P ILLAR LIPID, PILLAR TSH, PILLAR CBC, PILLAR CMP #### [address] #### NICOTINE QUAL #### [facility] , Cholesterol in HDL [Mass/Vol] 57 mg/dL Normal 35-85 [facility] Comment on above: Result Comment: HDL CHOL ATP-III CLASSIFICATION Cardiovascular Risk HDL > or equal to 60 mg/dL LOW HDL < 40 mg/dL HIGH Performed By: #### P ILLAR LIPID, PILLAR TSH, PILLAR CBC, PILLAR CMP #### [facility] [address] [place] [address] #### NICOTINE QUAL #### [facility] , Cholesterol.total/ Cholesterol in HDL [Mass ratio] 2.9 {ratio} Normal <5.0 [facility] Comment on above: Performed By: #### P ILLAR LIPID, PILLAR TSH, PILLAR CBC, PILLAR CMP #### [facility] [address] [place] [address] [place] #### NICOTINE QUAL #### [facility] , LDL Cholesterol,Calcul ated 99 mg/dL Normal 0-100 [facility] Comment on above: Result Comment: LDL ATP III CLASSIFICATION LDL less than 100 mg/dL Optimal LDL 100-129 mg/dL Near or above optimal LDL 130-159 mg/dL Borderline high LDL 160-189 mg/dL High LDL greater than 189 mg/dL Very high Performed By: #### P ILLAR LIPID, PILLAR TSH, PILLAR CBC, PILLAR CMP #### [address] #### NICOTINE QUAL #### [facility] , Triglyceride w/Reflex 34 mg/dL Low 35-149 [facility] Comment on above: Result Comment: TRIG ATP III CLASSIFICATION TRIG less than 150 mg/dL Normal TRIG 150-199 mg/dL Borderline high TRIG 200-500 mg/dL High TRIG greater than 500 mg/dL Very high Standard traceable to the Center for Disease Conrtrol and Prevention (CDC) test method. Performed By: #### P ILLAR LIPID, PILLAR TSH, PILLAR CBC, PILLAR CMP #### [address] #### NICOTINE QUAL #### [facility] , VLDL CHOLESTEROL 6 mg/dL Normal [facility] Comment on above: Performed By: #### P ILLAR LIPID, PILLAR TSH, PILLAR CBC, PILLAR CMP #### [facility] [address] [place] [address] #### NICOTINE QUAL #### [facility] , Employee Thyroid Stim Hormon jason 01-07-2022 Employee Thyroid Stim Hormone 2.14 u[iU]/mL Normal 0.45-5.33 [facility] Comment on above: Result Comment: PERF ORMED BY: [place] [address] PATHOLOGIST PRODUCT GRADER JIANLAN SUN M.D. Performed By: #### P ILLAR LIPID, PILLAR TSH, PILLAR CBC, PILLAR CMP #### [facility] [address] [place] [address] [place] #### NICOTINE QUAL #### [facility] , Nicotine Metabolite, Qual[place] 01-07-2022 Nicotine Metabolite Negative Normal Cutoff=25 [facility] Comment on above: Result Comment: Perf ormed at: - [facility] [address] [id number] Talent Acquisition Specialist: Josh Ortez MD, Phone: [phone] PERFORMED BY: [place] [address] PATHOLOGIST PRODUCT GRADER ROBERT WEBB M.D. Performed By: #### P ILLAR LIPID, PILLAR TSH, PILLAR CBC, PILLAR CMP #### [facility] [address] [place] [address] #### NICOTINE QUAL #### [facility] , XR [...] by: JACKIE WILLETT Date: 2020-12-16 14:53 Normal [facility] Vital Signs Date Time Vital Sign Value Performing Clinician Facility 03-01-2022 09:00-0400 Body height 175.26 cm tu.nr Other [facility] Other 03-01-2022 09:00-0400 Body mass index (BMI) [Ratio] 33.81 kg/m2 tu[facility] Other [facility] Other 03-01-2022 09:00-0400 Body temperature 97.9 [degF] [facility] Other [facility] Other 03-01-2022 09:00-0400 Body weight 103.87 kg [facility] Other [facility] Other 03-01-2022 09:00-0400 Diastolic blood pressure 80 mm[Hg] [facility] Other [facility] Other 03-01-2022 09:00-0400 Respiratory rate 20 /min [facility] Other [facility] Other 03-01-2022 09:00-0400 SaO2% (BldA) [Mass fraction] 97 % [facility] Other [facility] Other 03-01-2022 09:00-0400 Systolic blood pressure 118 mm[Hg] [facility] Other [facility] Other 01-18-2022 09:45-0400 Body height 175.26 cm [facility] Other [facility] Other 01-18-2022 09:45-0400 Body mass index (BMI) [Ratio] 32.93 kg/m2 [facility] Other [facility] Other 01-18-2022 09:45-0400 Body temperature 97.3 [degF] [facility] Other [facility] Other 01-18-2022 09:45-0400 Body weight 101.15 kg [facility] Other [facility] Other 01-18-2022 09:45-0400 Diastolic blood pressure 72 mm[Hg] [facility] Other [facility] Other 01-18-2022 09:45-0400 Respiratory rate 20 /min [facility] Other [facility] Other 01-18-2022 09:45-0400 SaO2% (BldA) [Mass fraction] 98 % [facility] Other [facility] Other 01-18-2022 09:45-0400 Systolic blood pressure 112 mm[Hg] [facility] Other [facility] Other 03-05-2021 16:15-0400 Body height 175.26 cm [facility] Other [facility] Other 03-05-2021 16:15-0400 Body mass index (BMI) [Ratio] 35.14 kg/m2 [facility] Other [facility] Other 03-05-2021 16:15-0400 Body weight 107.96 kg [facility] Other [facility] Other 03-05-2021 16:15-0400 Diastolic blood pressure 68 mm[Hg] [facility] Other [facility] Other 03-05-2021 16:15-0400 Respiratory rate 20 /min [facility] Other [facility] Other 03-05-2021 16:15-0400 SaO2% (BldA) [Mass fraction] 98 % [facility] Other [facility] Other 03-05-2021 16:15-0400 Systolic blood pressure 110 mm[Hg] [facility] Other [facility] Other Encounters Encounter Date Encounter Type Care Provider Facility Start: 06-24-2023 End: 06-24-2023 ambulatory WILL UZMA Not Available Start: 06-10-2023 End: 06-10-2023 ambulatory WILL UZMA Not Available Start: 05-27-2023 End: 05-27-2023 ambulatory WILL UZMA Not Available Start: 05-01-2023 End: 05-01-2023 ambulatory WILL UZMA Not Available Start: 09-10-2022 End: 09-10-2022 ambulatory Susanne Soraidarachel Other [facility] Other Start: 09-10-2022 Telephone encounter Susanne Perez [facility] Start: 08-21-2022 End: 08-21-2022 ambulatory Dontrell Gallegos Other [facility] Other Start: 08-21-2022 Telephone encounter Dontrell Perez [facility] Start: 08-09-2022 End: 08-09-2022 ambulatory [facility] Other [facility] Other Start: 08-09-2022 Telephone encounter Urban Max [facility] Start: 08-07-2022 End: 08-07-2022 ambulatory Urban M. Max Facility:[facility] Start: 08-06-2022 End: 08-06-2022 ambulatory Urban Max Other [facility] Other Start: 08-06-2022 Telephone encounter Urban Max [facility] Start: 03-26-2022 End: 03-26-2022 ambulatory Urban Amx Other [facility] Other Start: 03-26-2022 Telephone encounter Urban Max [facility] Start: 03-01-2022 End: 03-01-2022 ambulatory Urban Max Other [facility] Other Start: 03-01-2022 Encounter for genera l adult medical examination without abnormal findings [facility] Start: 03-01-2022 Periodic preventive med est patient 18-39 yrs [facility] Start: 02-13-2022 End: 02-13-2022 ambulatory Georgie Nighat Other [facility] Other Start: 02-13-2022 Nursing evaluation o f patient and report Georgie Nighat [facility] Start: 02-11-2022 End: 02-11-2022 ambulatory Georgie Nighat Other [facility] Other Start: 02-11-2022 Nursing evaluation o f patient and report Georgie Nighat [facility] Start: 01-18-2022 End: 01-18-2022 ambulatory Urban Max Other [facility] Other Start: 01-18-2022 Office outpatient visit 15 minutes Urban Max [facility] Start: 01-12-2022 End: 01-12-2022 ambulatory Georgie Nighat Other [facility] Other Start: 01-12-2022 Nursing evaluation o f patient and report Georgie Nighat [facility] Start: 01-07-2022 End: 01-07-2022 ambulatory Asim Garber Facility:[facility] Start: 03-05-2021 Encounter for genera l adult medical examination without abnormal findings [facility] Start: 03-05-2021 Periodic preventive med est patient 18-39 yrs [facility] Start: 12-16-2020 End: 12-16-[address] DOCTOR RAMIREZ Facility:[facility] Procedures Date Procedure Procedure Detail Performing Clinician Start: 08-07-2022 Piperacillin/tazobactam [facility] Other Immunizations Immunization Date Immunization Notes Care Provider Serjio bay 02-27-2021 influenza, seasonal, injectable [facility] Other [facility] Other 02-29-2020 influenza, injectable, quadrivalent, contains preservative [facility] Other [facility] Other 02-07-2020 influenza, injectable, quadrivalent, contains preservative Patient Objection [facility] Other [facility] Other NEGATED: Highlighted row has not occurred!02-07-2020 influenza, injectable, quadrivalent, contains preservative Patient Objection Georgie Disla Other [facility] Other Payers Date Payer Category Payer Medicaid [id number] 2022 Unknown [id number] 2021 Self-pay 1994 Unknown [id number] 2.16.84 [id number] 1994 Unknown [id number] 2.16.84 [id number] 1994 Unknown [id number] 2.16.84 [id number] 1994 Unknown [id number] 1994 Unknown [id number] 1959 Unknown [id number] Unknown [id number] 2.16.8 [id number] Unknown [id number] 2.16.8 [id number] Social History Date Type Detail Facility Unknown if ever smoked [facility] Other Sex Assigned At Sex Assigned At Bir th [facility] Other Clinical Notes 03-05-2021 to 08-21-2022 Note Date & Type Note Facility 08-21-2022 Evaluation note Encounter Date Diagnosis Assessment Notes Jul, Acute non-recurrent frontal sinusitis (ICD-10 - J01.10) [facility] Other 03-14-2023 Evaluation note* Encounter Date Diagnosis Assessment Notes Treatment Notes Treatment Clinical Notes Jul, Dysuria (ICD-10 - R30.0) [facility] Other 11-01-2022 Evaluation note* Encounter Date Diagnosis Assessment Notes Treatment Notes Treatment Clinical Notes Mar, Anxiety (ICD-10 - F41.9) [facility] Other 10-07-2022 Evaluation note* Encounter Date Diagnosis Assessment Notes Treatment Notes Treatment Clinical Notes Feb, Encntr for general adult medical exam w/o abnormal findings (ICD-10 - Z00.00) Feb, Other No change today...Continue as is...FU 6 months.... [facility] Other 09-21-2022 Evaluation note* Encounter Date Diagnosis Assessment Notes Treatment Notes Treatment Clinical Notes Jan, Contact with and (suspected) exposure to other viral communicable diseases (ICD-10 - Z20.828) [facility] Other 09-19-2022 Evaluation note* Encounter Date Diagnosis Assessment Notes Treatment Notes Treatment Clinical Notes Jan, Contact with and (suspected) exposure to other viral communicable diseases (ICD-10 - Z20.828) [facility] Other 08-26-2022 Evaluation note* Encounter Date Diagnosis Assessment Notes Treatment Notes Treatment Clinical Notes Dec, Anxiety (ICD-10 - F41.9) E Rx sent. Lengthy discussion with patient that I think we need to try something than just a straight SSRI. We will see patient back in review. We talked about potential side effects as well as outcomes. She will call with any concerns. [facility] Other 08-20-2022 Evaluation note* Encounter Date Diagnosis Assessment Notes Treatment Notes Treatment Clinical Notes Dec, Contact with and (suspected) exposure to other viral communicable diseases (ICD-10 - Z20.828) [facility] Other 10-11-2021 Evaluation note* Encounter Date Diagnosis Assessment Notes Treatment Notes Treatment Clinical Notes Feb, Encntr for general adult medical exam w/o abnormal findings (ICD-10 - Z00.00) Feb, Other No change today...Continue as is...FU PRN/Yearly... [facility] Other Evaluation noteNo [employer] Other History general Narrative - Reported* Type Description Date Medical History Hx of MRSA Medical History anxiety Surgical History tonsillectomy and adenoidectomy 2012 Surgical History c-sections 2009 and 2017 Hospitalization History C Sections [facility] Other Summary Purpose Family History No Family History Records FoundNo Family History Records FoundNo Family History Records Found Advance Directives No Advanced Directives Records FoundNo Advanced Directives Records FoundNo Advanced Directives Records Found Additional Source Comments INFORMATION SOURCE (unrecogn ized section and content) DATE CREATED AUTHOR 12/19/2020 [facility] DATE CREATED AUTHOR AUTHOR'S ORGANIZ ATION 08/09/2022 [facility] DATE CREATED AUTHOR AUTHOR'S ORGANIZ ATION 06/25/2023 [facility] EPIC REASON FOR VISIT (unrecogniz ed section and content) [facility] 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 [employer] [facility]. provides no warranty or guarantee of the accuracy or completeness of information in this document.
--- NOTE | 2023-06-30 16:57 | US_ITS ---
[address] [address] Patient Name: JARVIS MACEDO MRN: [id number] date: 1995 Sex: F Assigned Patient Location: [facility] Current Patient Location: Accession/Order Number: [id number] Exam Date: 06/30/2023 17:04 Report Date: 07/01/2023 07:08 At the request of: TALITA LEARY Procedure: US OB BPP w non-stress EXAMINATION: US OB BPP w non-stress HISTORY: EXCESSIVE GROWTH AFFECTING O36.63X0 COMPARISON: Ultrasound OB growth 06/24/2023 TECHNIQUE: Ultrasound biophysical profile was performed in the radiology department. BREATHING MOVEMENTS: 2.0 GROSS BODY MOVEMENTS: 2.0 TONE: 2.0 QUALITATIVE AMNIOTIC FLUID VOLUME: 2.0 PRESENTATION: CEPHALIC HEART RATE: 121.6 bpm bpm. AMNIOTIC FLUID VOLUME: 10.8 cm GESTATIONAL AGE: 33 weeks 3 days CONCLUSION: Total biophysical profile score 8.0. Electronically authenticated by: SELENA ZUÑIGA Date: 07/01/2023 07:08
[2023-06-30 17:31] VITALS: BP 118/63; PULSE 74
== END 2023-06-30 18:07 | disposition home or self-care (01) ==
LOC: US 08:28 → FBC 16:57
PROVIDERS: PCP Family Medicine; Visit Provider Obstetrics & Gynecology
DX: O36.63X1 Maternal care for excessive fetal growth, third trimester, fetus 1 (principal); Z3A.33 33 weeks gestation of pregnancy
CPT/HCPCS: 76818

== ENCOUNTER 2023-07-03 07:45 | Outpatient (OUT) | payer BC, OTHER, SELFPAY ==
--- OUTSIDE RECORDS SUMMARY | 2023-07-03 07:54 | XMS_ITS | CCD ---
Author Name Unknown Address [facility] [address] [place] [address] Organization [facility] Care Team Providers Care Radio Television Technical Director Name Role Phone TARYN, DR GA Primary [...] Active Start: 01-18-2022 take 1 capsule by [facility] every twenty-four hours DULoxetine HCl 20 [...] keithy Urine Cultureon 08-07-2022 Urine Culture >100,000 [facility] Other Urine Culture <16 Susceptible [facility] Other Urine Culture <8/4 Susceptible [facility] Other Urine Culture >16 Resistant [facility] Other Urine Culture <4 Susceptible [facility] Other Urine Culture <2 Susceptible [facility] Other Urine Culture <1 Susceptible [facility] Other Urine Culture <0.25 Susceptible [facility] Other Urine Culture <0.5 Susceptible [facility] Other Urine Culture >8 Resistant [facility] Other Urine Culture <32 Susceptible [facility] Other Urine Culture 4 Susceptible [facility] Other Urine Culture >2/38 Resistant [facility] Other Bacteria identified Cx Nom (U) Reason for Exam Dysuria Urine Reason for Exam: Dysuria : Urine ORGANISM: Escherichia coli (O:ESCCOL) [place] Count >100,000 Aerobic REMY Charge ([id number]) ----- [...] RESISTANT TO ALL B-LACTAM DRUGS. PERFORMED BY: [place] [address] PATHOLOGIST APPLIQUE CUTTER ROBERT WEBB M.D. [facility] Comment on above: Performed By: #### C UU #### [address] SARS-CoV-2 (COVID-19) RNA NA A+probe Ql (Resp)on 02-13-2022 SARS-CoV-2 (COVID-19) RNA CLAY+probe Ql (Unsp spec) Positive [facility] Other SARS-CoV-2 (COVID-19) RNA NA A+probe Ql (Resp)on 02-11-2022 SARS-CoV-2 (COVID-19) RNA CLAY+probe Ql (Unsp spec) Negative [facility] Other SARS-CoV-2 (COVID-19) RNA NA A+probe Ql (Resp)on 01-12-2022 SARS-CoV-2 (COVID-19) RNA CLAY+probe Ql (Unsp spec) Negative [facility] Other Employee Comp Metabolic Shannen robert 01-07-2022 Albumin [Mass/Vol] 4.0 g/dL Normal 3.2-5.5 [facility] Comment on above: Performed By: #### P ILLAR LIPID, PILLAR TSH, PILLAR CBC, PILLAR CMP #### [facility] [address] [place] [address] #### NICOTINE QUAL #### [facility] , Albumin/Globulin [Mass ratio] 1.4 {ratio} Normal [facility] Comment on above: Performed By: #### P ILLAR LIPID, PILLAR TSH, PILLAR CBC, PILLAR CMP #### [facility] [address] [place] [address] #### NICOTINE QUAL #### [facility] , ALP [Catalytic activity/Vol] 72 U/L Normal 32-92 [facility] Comment on above: Performed By: #### P ILLAR LIPID, PILLAR TSH, PILLAR CBC, PILLAR CMP #### [facility] [address] [place] [address] #### NICOTINE QUAL #### [facility] , ALT [Catalytic activity/Vol] 20 U/L Normal 10-60 [facility] Comment on above: Performed By: #### P ILLAR LIPID, PILLAR TSH, PILLAR CBC, PILLAR CMP #### [facility] [address] [place] [address] [place] #### NICOTINE QUAL #### [facility] , AST [Catalytic activity/Vol] 23 U/L Normal 10-42 [facility] Comment on above: Performed By: #### P ILLAR LIPID, PILLAR TSH, PILLAR CBC, PILLAR CMP #### [facility] [address] [place] [address] [place] #### NICOTINE QUAL #### [facility] , Bilirubin [Mass/Vol] 0.4 mg/dL Normal 0.3-1.2 [facility] Comment on above: Performed By: #### P ILLAR LIPID, PILLAR TSH, PILLAR CBC, PILLAR CMP #### [facility] [address] [place] [address] [place] #### NICOTINE QUAL #### [facility] , Calcium [Mass/Vol] 9.6 mg/dL Normal 8.2-10.2 [facility] Comment on above: Performed By: #### P ILLAR LIPID, PILLAR TSH, PILLAR CBC, PILLAR CMP #### [facility] [address] [place] [address] [place] #### NICOTINE QUAL #### [facility] , Chloride [Moles/Vol] 101 mmol/L Normal 95-114 [facility] Comment on above: Performed By: #### P ILLAR LIPID, PILLAR TSH, PILLAR CBC, PILLAR CMP #### [facility] [address] [place] [address] #### NICOTINE QUAL #### [facility] , CO2 [Moles/Vol] 24.9 mmol/L Normal 22.0-30.0 [facility] Comment on above: Performed By: #### P ILLAR LIPID, PILLAR TSH, PILLAR CBC, PILLAR CMP #### [facility] [address] [place] [address] [place] #### NICOTINE QUAL #### [facility] , Creatinine [Mass/Vol] 0.72 mg/dL Normal 0.44-1.03 [facility] Comment on above: Performed By: #### P ILLAR LIPID, PILLAR TSH, PILLAR CBC, PILLAR CMP #### [facility] [address] [place] [address] [place] #### NICOTINE QUAL #### [facility] , Estimated GFR ( Katelin > 60 Normal [facility] Comment on above: Result Comment: GFR estimated reference range: According to KDOQI guidelines, <60 ml/min/1.73m2 is sufficient to diagnose a patient with chronic kidney disease. Performed By: #### P ILLAR LIPID, PILLAR TSH, PILLAR CBC, PILLAR CMP #### [facility] [address] [place] [address] [place] #### NICOTINE QUAL #### [facility] , Estimated GFR (Non- Am > 60 Normal [facility] Comment on above: Performed By: #### P ILLAR LIPID, PILLAR TSH, PILLAR CBC, PILLAR CMP #### [facility] [address] [place] [address] [place] #### NICOTINE QUAL #### [facility] , Globulin (S) [Mass/Vol] 2.8 g/dL Normal [facility] Comment on above: Performed By: #### P ILLAR LIPID, PILLAR TSH, PILLAR CBC, PILLAR CMP #### [facility] [address] [place] [address] [place] #### NICOTINE QUAL #### [facility] , Glucose [Mass/Vol] 91 mg/dL Normal 70-100 [facility] Comment on above: Performed By: #### P ILLAR LIPID, PILLAR TSH, PILLAR CBC, PILLAR CMP #### [facility] [address] [place] [address] [place] #### NICOTINE QUAL #### [facility] , Potassium [Moles/Vol] 4.3 mmol/L Normal 3.5-5.1 [facility] Comment on above: Performed By: #### P ILLAR LIPID, PILLAR TSH, PILLAR CBC, PILLAR CMP #### [facility] [address] [place] [address] [place] #### NICOTINE QUAL #### [facility] , Protein [Mass/Vol] 6.8 g/dL Normal 6.1-7.9 [facility] Comment on above: Performed By: #### P ILLAR LIPID, PILLAR TSH, PILLAR CBC, PILLAR CMP #### [facility] [address] [place] [address] [place] #### NICOTINE QUAL #### [facility] , Sodium [Moles/Vol] 134 mmol/L Low 136-146 [facility] Comment on above: Performed By: #### P ILLAR LIPID, PILLAR TSH, PILLAR CBC, PILLAR CMP #### [facility] [address] [place] [address] #### NICOTINE QUAL #### [facility] , Urea nitrogen [Mass/Vol] 10 mg/dL Normal 9-23 [facility] Comment on above: Performed By: #### P ILLAR LIPID, PILLAR TSH, PILLAR CBC, PILLAR CMP #### [address] #### NICOTINE QUAL #### [facility] , Employee Complete Blood Coun ton 01-07-2022 Basophils (Bld) [#/Vol] 0.0 10*3/uL Normal 0.0-0.2 [facility] Comment on above: Result Comment: PERF ORMED BY: [place] [address] PATHOLOGIST APPLIQUE CUTTER ROBERT WEBB M.D. Performed By: #### P ILLAR LIPID, PILLAR TSH, PILLAR CBC, PILLAR CMP #### [address] #### NICOTINE QUAL #### [facility] , Basophils/100 WBC (Bld) 0.5 % Normal . [facility] Comment on above: Performed By: #### P ILLAR LIPID, PILLAR TSH, PILLAR CBC, PILLAR CMP #### [address] #### NICOTINE QUAL #### [facility] , Eosinophils (Bld) [#/Vol] 0.1 10*3/uL Normal 0.0-0.45 [facility] Comment on above: Performed By: #### P ILLAR LIPID, PILLAR TSH, PILLAR CBC, PILLAR CMP #### [facility] [address] [place] [address] [place] #### NICOTINE QUAL #### [facility] , Eosinophils/100 WBC (Bld) 1.2 % Normal . [facility] Comment on above: Performed By: #### P ILLAR LIPID, PILLAR TSH, PILLAR CBC, PILLAR CMP #### [facility] [address] [place] [address] #### NICOTINE QUAL #### [facility] , Erythrocyte distribution width (RBC) [Ratio] 16.0 % High 11.9-15.3 [facility] Comment on above: Performed By: #### P ILLAR LIPID, PILLAR TSH, PILLAR CBC, PILLAR CMP #### [address] #### NICOTINE QUAL #### [facility] , Hematocrit (Bld) [Volume fraction] 38.7 % Normal 34.0-46.4 [facility] Comment on above: Performed By: #### P ILLAR LIPID, PILLAR TSH, PILLAR CBC, PILLAR CMP #### [address] #### NICOTINE QUAL #### [facility] , Hemoglobin (Bld) [Mass/Vol] 12.7 g/dL Normal 11.8-15.4 [facility] Comment on above: Performed By: #### P ILLAR LIPID, PILLAR TSH, PILLAR CBC, PILLAR CMP #### [facility] [address] [place] [address] [place] #### NICOTINE QUAL #### [facility] , Lymphocytes (Bld) [#/Vol] 2.8 10*3/uL Normal 1.00-4.8 [facility] Comment on above: Performed By: #### P ILLAR LIPID, PILLAR TSH, PILLAR CBC, PILLAR CMP #### [place] [address] [place] #### NICOTINE QUAL #### [facility] , Lymphocytes/100 WBC (Bld) 40.3 % Normal . [facility] Comment on above: Performed By: #### P ILLAR LIPID, PILLAR TSH, PILLAR CBC, PILLAR CMP #### [facility] [address] [place] [address] [place] #### NICOTINE QUAL #### [facility] , MCH (RBC) [Entitic mass] 27.5 pg Normal 24.7-34.3 [facility] Comment on above: Performed By: #### P ILLAR LIPID, PILLAR TSH, PILLAR CBC, PILLAR CMP #### [facility] [address] [place] [address] #### NICOTINE QUAL #### [facility] , MCV (RBC) [Entitic vol] 84.2 fL Normal 80-100 [facility] Comment on above: Performed By: #### P ILLAR LIPID, PILLAR TSH, PILLAR CBC, PILLAR CMP #### [facility] [address] [place] [address] #### NICOTINE QUAL #### [facility] , Mean Corpuscular HGB Conc 32.7 g/dL Normal 32.0-35.0 [facility] Comment on above: Performed By: #### P ILLAR LIPID, PILLAR TSH, PILLAR CBC, PILLAR CMP #### [facility] [address] [place] [address] #### NICOTINE QUAL #### [facility] , Monocytes (Bld) [#/Vol] 0.3 10*3/uL Normal 0.0-0.8 [facility] Comment on above: Performed By: #### P ILLAR LIPID, PILLAR TSH, PILLAR CBC, PILLAR CMP #### [facility] [address] [place] [address] [place] #### NICOTINE QUAL #### [facility] , Monocytes/100 WBC (Bld) 5.0 % Normal . [facility] Comment on above: Performed By: #### P ILLAR LIPID, PILLAR TSH, PILLAR CBC, PILLAR CMP #### [place] [address] [place] #### NICOTINE QUAL #### [facility] , Neutrophils (Bld) [#/Vol] 3.7 10*3/uL Normal 1.8-7.7 [facility] Comment on above: Performed By: #### P ILLAR LIPID, PILLAR TSH, PILLAR CBC, PILLAR CMP #### [facility] [address] [place] [address] [place] #### NICOTINE QUAL #### [facility] , Neutrophils/100 WBC (Bld) 53.0 % Normal . [facility] Comment on above: Performed By: #### P ILLAR LIPID, PILLAR TSH, PILLAR CBC, PILLAR CMP #### [address] #### NICOTINE QUAL #### [facility] , Nucleated RBC/100 WBC (Bld) [Ratio] 0.1 % Normal 0-0.5 [facility] Comment on above: Performed By: #### P ILLAR LIPID, PILLAR TSH, PILLAR CBC, PILLAR CMP #### [facility] [address] [place] [address] [place] #### NICOTINE QUAL #### [facility] , Platelet mean volume (Bld) [Entitic vol] 7.8 fL Normal 6.3-10.7 [facility] Comment on above: Performed By: #### P ILLAR LIPID, PILLAR TSH, PILLAR CBC, PILLAR CMP #### [place] [address] [place] #### NICOTINE QUAL #### [facility] , Platelets (Bld) [#/Vol] 297 10*3/uL Normal 150-450 [facility] Comment on above: Performed By: #### P ILLAR LIPID, PILLAR TSH, PILLAR CBC, PILLAR CMP #### [facility] [address] [place] [address] [place] #### NICOTINE QUAL #### [facility] , RBC (Bld) [#/Vol] 4.60 10*6/uL Normal 3.60-5.00 [facility] Comment on above: Performed By: #### P ILLAR LIPID, PILLAR TSH, PILLAR CBC, PILLAR CMP #### [facility] [address] [place] [address] #### NICOTINE QUAL #### [facility] , WBC (Bld) [#/Vol] 6.9 10*3/uL Normal 4.5-11.0 [facility] Comment on above: Performed By: #### P ILLAR LIPID, PILLAR TSH, PILLAR CBC, PILLAR CMP #### [address] #### NICOTINE QUAL #### [facility] , Employee Lipid Profileon Cholesterol [Mass/Vol] 163 mg/dL Normal 140-200 [facility] Comment on above: Result Comment: Chol less than 200 mg/dl low risk Chol 201-239 mg/dl borderline risk Chol 240 mg/dl and greater high risk Performed By: #### P ILLAR LIPID, PILLAR TSH, PILLAR CBC, PILLAR CMP #### [address] #### NICOTINE QUAL #### [facility] , Cholesterol in HDL [Mass/Vol] 57 mg/dL Normal 35-85 [facility] Comment on above: Result Comment: HDL CHOL ATP-III CLASSIFICATION Cardiovascular Risk HDL > or equal to 60 mg/dL LOW HDL < 40 mg/dL HIGH Performed By: #### P ILLAR LIPID, PILLAR TSH, PILLAR CBC, PILLAR CMP #### [facility] [address] [place] [address] #### NICOTINE QUAL #### [facility] , Cholesterol.total/ Cholesterol in HDL [Mass ratio] 2.9 {ratio} Normal <5.0 [facility] Comment on above: Performed By: #### P ILLAR LIPID, PILLAR TSH, PILLAR CBC, PILLAR CMP #### [facility] [address] [place] [address] [place] #### NICOTINE QUAL #### [facility] , LDL Cholesterol,Calcul ated 99 mg/dL Normal 0-100 [facility] Comment on above: Result Comment: LDL ATP III CLASSIFICATION LDL less than 100 mg/dL Optimal LDL 100-129 mg/dL Near or above optimal LDL 130-159 mg/dL Borderline high LDL 160-189 mg/dL High LDL greater than 189 mg/dL Very high Performed By: #### P ILLAR LIPID, PILLAR TSH, PILLAR CBC, PILLAR CMP #### [address] #### NICOTINE QUAL #### [facility] , Triglyceride w/Reflex 34 mg/dL Low 35-149 [facility] Comment on above: Result Comment: TRIG ATP III CLASSIFICATION TRIG less than 150 mg/dL Normal TRIG 150-199 mg/dL Borderline high TRIG 200-500 mg/dL High TRIG greater than 500 mg/dL Very high Standard traceable to the Center for Disease Conrtrol and Prevention (CDC) test method. Performed By: #### P ILLAR LIPID, PILLAR TSH, PILLAR CBC, PILLAR CMP #### [address] #### NICOTINE QUAL #### [facility] , VLDL CHOLESTEROL 6 mg/dL Normal [facility] Comment on above: Performed By: #### P ILLAR LIPID, PILLAR TSH, PILLAR CBC, PILLAR CMP #### [facility] [address] [place] [address] #### NICOTINE QUAL #### [facility] , Employee Thyroid Stim Hormon jason 01-07-2022 Employee Thyroid Stim Hormone 2.14 u[iU]/mL Normal 0.45-5.33 [facility] Comment on above: Result Comment: PERF ORMED BY: [place] [address] PATHOLOGIST APPLIQUE CUTTER JIANLAN SUN M.D. Performed By: #### P ILLAR LIPID, PILLAR TSH, PILLAR CBC, PILLAR CMP #### [facility] [address] [place] [address] [place] #### NICOTINE QUAL #### [facility] , Nicotine Metabolite, Qualon 01-07-2022 Nicotine Metabolite Negative Normal Cutoff=25 [facility] Comment on above: Result Comment: Perf ormed at: - [facility] [address] [id number] Denture Processor: Josh Ortez MD, Phone: [phone] PERFORMED BY: [place] [address] PATHOLOGIST APPLIQUE CUTTER ROBERT WEBB M.D. Performed By: #### P ILLAR LIPID, PILLAR TSH, PILLAR CBC, PILLAR CMP #### [facility] [address] [place] [address] #### NICOTINE QUAL #### [facility] , XR [...] by: JACKIE WILLETT Date: 2020-12-16 14:53 Normal [facility] Vital Signs Date Time Vital Sign Value Performing Clinician Facility 03-01-2022 09:00-0400 Body height 175.26 cm [facility] Other [facility] 03-01-2022 09:00-0400 Body mass index (BMI) [Ratio] 33.81 kg/m2 [facility] Other [facility] Other 03-01-2022 09:00-0400 Body temperature 97.9 [degF] [facility] Other [facility] Other 03-01-2022 09:00-0400 Body weight 103.87 kg [facility] Other [facility] Other 03-01-2022 09:00-0400 Diastolic blood pressure 80 mm[Hg] [facility] Other [facility] Other 03-01-2022 09:00-0400 Respiratory rate 20 /min [facility] Other [facility] Other 03-01-2022 09:00-0400 SaO2% (BldA) [Mass fraction] 97 % [facility] Other [facility] Other 03-01-2022 09:00-0400 Systolic blood pressure 118 mm[Hg] [facility] Other [facility] Other 01-18-2022 09:45-0400 Body height 175.26 cm [facility] Other [facility] Other 01-18-2022 09:45-0400 Body mass index (BMI) [Ratio] 32.93 kg/m2 [facility] Other [facility] Other 01-18-2022 09:45-0400 Body temperature 97.3 [degF] [facility] Other [facility] Other 01-18-2022 09:45-0400 Body weight 101.15 kg [facility] Other [facility] Other 01-18-2022 09:45-0400 Diastolic blood pressure 72 mm[Hg] [facility] Other [facility] Other 01-18-2022 09:45-0400 Respiratory rate 20 /min [facility] Other [facility] Other 01-18-2022 09:45-0400 SaO2% (BldA) [Mass fraction] 98 % [facility] Other [facility] Other 01-18-2022 09:45-0400 Systolic blood pressure 112 mm[Hg] [facility] Other [facility] Other 03-05-2021 16:15-0400 Body height 175.26 cm [facility] Other [facility] Other 03-05-2021 16:15-0400 Body mass index (BMI) [Ratio] 35.14 kg/m2 [facility] Other [facility] Other 03-05-2021 16:15-0400 Body weight 107.96 kg [facility] Other [facility] Other 03-05-2021 16:15-0400 Diastolic blood pressure 68 mm[Hg] [facility] Other [facility] Other 03-05-2021 16:15-0400 Respiratory rate 20 /min [facility] Other [facility] Other 03-05-2021 16:15-0400 SaO2% (BldA) [Mass fraction] 98 % [facility] Other [facility] Other 03-05-2021 16:15-0400 Systolic blood pressure 110 mm[Hg] [facility] Other [facility] Other Encounters Encounter Date Encounter Type Care Provider Facility Start: 06-24-2023 End: 06-24-2023 ambulatory WILL UZMA Not Available Start: 06-10-2023 End: 06-10-2023 ambulatory WILL UZMA Not Available Start: 05-27-2023 End: 05-27-2023 ambulatory WILL UZMA Not Available Start: 05-01-2023 End: 05-01-2023 ambulatory WILL UZMA Not Available Start: 09-10-2022 End: 09-10-2022 ambulatory Susanne Soraidarachel Other [facility] Other Start: 09-10-2022 Telephone encounter Susanne Perez [facility] Start: 08-21-2022 End: 08-21-2022 ambulatory Dontrell Gallegos Other [facility] Other Start: 08-21-2022 Telephone encounter Dontrell Perez [facility] Start: 08-09-2022 End: 08-09-2022 ambulatory [facility] Other [facility] Other Start: 08-09-[address] [facility] Start: 08-07-2022 End: 08-07-2022 ambulatory Urban M. [facility] Facility:[facility] Start: 08-06-2022 End: 08-06-2022 ambulatory [facility] Other [facility] Other Start: 08-06-[address] [facility] Start: 03-26-2022 End: 03-26-2022 ambulatory [facility] Other [facility] Other Start: 03-26-[address] [facility] Start: 03-01-2022 End: 03-01-2022 ambulatory [facility] Other [facility] Other Start: 03-01-2022 Encounter for genera l adult medical examination without abnormal findings [facility] Max [facility] Start: 03-01-2022 Periodic preventive med est patient 18-[address] [facility] Start: 02-13-2022 End: 02-13-2022 ambulatory Georgie Nighat Other [facility] Other Start: 02-13-2022 Nursing evaluation o f patient and report Georgie Nighat [facility] Start: 02-11-2022 End: 02-11-2022 ambulatory Georgie Nighat Other [facility] Other Start: 02-11-2022 Nursing evaluation o f patient and report Georgie Nighat [facility] Start: 01-18-2022 End: 01-18-2022 ambulatory [facility] Other [facility] Other Start: 01-18-2022 Office outpatient visit [address] [facility] Start: 01-12-2022 End: 01-12-2022 ambulatory Georgie Nighat Other [facility] Other Start: 01-12-2022 Nursing evaluation o f patient and report Georgie Nighat [facility] Start: 01-07-2022 End: 01-07-2022 ambulatory Asim Garber Facility:[facility] Start: 03-05-2021 Encounter for genera l adult medical examination without abnormal findings Urban [facility] Start: 03-05-2021 Periodic preventive med est patient 18-[address] [facility] Start: 12-16-2020 End: 12-16-[address] DOCTOR RAMIREZ Facility:[facility] Procedures Date Procedure Procedure Detail Performing Clinician Start: 08-07-2022 Piperacillin/tazobactam [facility] Other Immunizations Immunization Date Immunization Notes Care Provider Serjio [place] 02-27-2021 influenza, seasonal, injectable [facility] Other [facility] Other 02-29-2020 influenza, injectable, quadrivalent, contains preservative [facility] Other [facility] Other 02-07-2020 influenza, injectable, quadrivalent, contains preservative Patient Objection [facility] Other [facility] Other NEGATED: Highlighted row has not occurred!02-07-2020 influenza, injectable, quadrivalent, contains preservative Patient Objection Georgie Disla Other [facility] Other Payers Date Payer Category Payer Medicaid [id number] 2022 Unknown [id number] 2021 Self-pay 1994 Unknown [id number] 2.16.84 [id number] 1994 Unknown [id number] 2.16.84 [id number] 1994 Unknown [id number] 2.16.84 [id number] 1994 Unknown [id number] 1994 Unknown [id number] 1959 Unknown [id number] Unknown [id number] 2.16.8 [id number] Unknown [id number] 2.16.8 [id number] Social History Date Type Detail Facility Unknown if ever smoked [facility] Other Sex Assigned At Sex Assigned At Bir th [facility] Other Clinical Notes 03-05-2021 to 08-21-2022 Note Date & Type Note Facility 08-21-2022 Evaluation note Encounter Date Diagnosis Assessment Notes Jul, Acute non-recurrent frontal sinusitis (ICD-10 - J01.10) [facility] Other 03-14-2023 Evaluation note* Encounter Date Diagnosis Assessment Notes Treatment Notes Treatment Clinical Notes Jul, Dysuria (ICD-10 - R30.0) [facility] Other 11-01-2022 Evaluation note* Encounter Date Diagnosis Assessment Notes Treatment Notes Treatment Clinical Notes Mar, Anxiety (ICD-10 - F41.9) [facility] Other 10-07-2022 Evaluation note* Encounter Date Diagnosis Assessment Notes Treatment Notes Treatment Clinical Notes Feb, Encntr for general adult medical exam w/o abnormal findings (ICD-10 - Z00.00) Feb, Other No change today...Continue as is...FU 6 months.... [facility] Other 09-21-2022 Evaluation note* Encounter Date Diagnosis Assessment Notes Treatment Notes Treatment Clinical Notes Jan, Contact with and (suspected) exposure to other viral communicable diseases (ICD-10 - Z20.828) [facility] Other 09-19-2022 Evaluation note* Encounter Date Diagnosis Assessment Notes Treatment Notes Treatment Clinical Notes Jan, Contact with and (suspected) exposure to other viral communicable diseases (ICD-10 - Z20.828) [facility] Other 08-26-2022 Evaluation note* Encounter Date Diagnosis Assessment Notes Treatment Notes Treatment Clinical Notes Dec, Anxiety (ICD-10 - F41.9) E Rx sent. Lengthy discussion with patient that I think we need to try something than just a straight SSRI. We will see patient back in review. We talked about potential side effects as well as outcomes. She will call with any concerns. [facility] Other 08-20-2022 Evaluation note* Encounter Date Diagnosis Assessment Notes Treatment Notes Treatment Clinical Notes Dec, Contact with and (suspected) exposure to other viral communicable diseases (ICD-10 - Z20.828) [facility] Other 10-11-2021 Evaluation note* Encounter Date Diagnosis Assessment Notes Treatment Notes Treatment Clinical Notes Feb, Encntr for general adult medical exam w/o abnormal findings (ICD-10 - Z00.00) Feb, Other No change today...Continue as is...FU PRN/Yearly... [facility] Other Evaluation noteNo InformationNortCodeanywhere Other History general Narrative - Reported* Type Description Date Medical History Hx of MRSA Medical History anxiety Surgical History tonsillectomy and adenoidectomy 2012 Surgical History c-sections 2009 and 2017 Hospitalization History C Sections [place] Other Summary Purpose Family History No Family History Records FoundNo Family History Records FoundNo Family History Records Found Advance Directives No Advanced Directives Records FoundNo Advanced Directives Records FoundNo Advanced Directives Records Found Additional Source Comments INFORMATION SOURCE (unrecogn ized section and content) DATE CREATED AUTHOR 12/19/2020 [facility] DATE CREATED AUTHOR AUTHOR'S ORGANIZ ATION 08/09/2022 [facility] DATE CREATED AUTHOR AUTHOR'S ORGANIZ ATION 06/25/2023 [facility] EPIC REASON FOR VISIT (unrecogniz ed section and content) [facility] 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 [employer] [facility]. provides no warranty or guarantee of the accuracy or completeness of information in this document.
[2023-07-03 15:59] VITALS: BP 128/65; PULSE 84
== END 2023-07-03 16:26 | disposition home or self-care (01) ==
LOC: FBCO 07:51 → FBC 15:57
PROVIDERS: PCP Family Medicine; Visit Provider Obstetrics & Gynecology
DX: O36.63X0 Maternal care for excessive fetal growth, third trimester, not applicable or unspecified (principal); Z3A.00 Weeks of gestation of pregnancy not specified
CPT/HCPCS: 59025

== ENCOUNTER 2023-07-07 07:33 | Outpatient (OUT) | payer BC, OTHER, SELFPAY ==
--- OUTSIDE RECORDS SUMMARY | 2023-07-07 07:36 | XMS_ITS | CCD ---
Author Name Unknown Address Formerly [facility] [address] [place] [address] Organization [facility] Care Team Providers Care Special Delivery Clerk Name Role Phone TARYN, DR GA Primary [...] Active Start: 01-18-2022 take 1 capsule by [facility] every twenty-four hours DULoxetine HCl 20 [...] keithy Urine Cultureon 08-07-2022 Urine Culture >100,000 [facility] Other Urine Culture <16 Susceptible [place] Other Urine Culture <8/4 Susceptible [place] Other Urine Culture >16 Resistant [facility] Other Urine Culture <4 Susceptible [employer] Other Urine Culture <2 Susceptible [employer] Other Urine Culture <1 Susceptible [employer] Other Urine Culture <0.25 Susceptible [employer] Other Urine Culture <0.5 Susceptible [employer] Other Urine Culture >8 Resistant [facility] Other Urine Culture <32 Susceptible [place] Other Urine Culture 4 Susceptible [place] Other Urine Culture >2/38 Resistant [facility] Other Bacteria identified Cx Nom (U) Reason for Exam Dysuria Urine Reason for Exam: Dysuria : Urine ORGANISM: Escherichia coli (O:ESCCOL) [place] Count >100,000 Aerobic REMY Charge (NMIC56) ----- [...] RESISTANT TO ALL B-LACTAM DRUGS. PERFORMED BY: [place] [address] PATHOLOGIST PHYSICAL THERAPY RESIDENT ROBERT WEBB M.D. [facility] Comment on above: Performed By: #### C UU #### [address] SARS-CoV-2 (COVID-19) RNA NA A+probe Ql (Resp)on 02-13-2022 SARS-CoV-2 (COVID-19) RNA CLAY+probe Ql (Unsp spec) Positive [facility] Other SARS-CoV-2 (COVID-19) RNA NA A+probe Ql (Resp)on 02-11-2022 SARS-CoV-2 (COVID-19) RNA CLAY+probe Ql (Unsp spec) Negative [facility] Other SARS-CoV-2 (COVID-19) RNA NA A+probe Ql (Resp)on 01-12-2022 SARS-CoV-2 (COVID-19) RNA CLAY+probe Ql (Unsp spec) Negative [facility] Other Employee Comp Metabolic Shannen robert 01-07-2022 Albumin [Mass/Vol] 4.0 g/dL Normal 3.2-5.5 [facility] Comment on above: Performed By: #### P ILLAR LIPID, PILLAR TSH, PILLAR CBC, PILLAR CMP #### [facility] [address] [place] [address] #### NICOTINE QUAL #### [facility] , Albumin/Globulin [Mass ratio] 1.4 {ratio} Normal [facility] Comment on above: Performed By: #### P ILLAR LIPID, PILLAR TSH, PILLAR CBC, PILLAR CMP #### [facility] [address] [place] [address] #### NICOTINE QUAL #### [facility] , ALP [Catalytic activity/Vol] 72 U/L Normal 32-92 [facility] Comment on above: Performed By: #### P ILLAR LIPID, PILLAR TSH, PILLAR CBC, PILLAR CMP #### [facility] [address] [place] [address] #### NICOTINE QUAL #### [facility] , ALT [Catalytic activity/Vol] 20 U/L Normal 10-60 [facility] Comment on above: Performed By: #### P ILLAR LIPID, PILLAR TSH, PILLAR CBC, PILLAR CMP #### [facility] [address] [place] [address] [place] #### NICOTINE QUAL #### [facility] , AST [Catalytic activity/Vol] 23 U/L Normal 10-42 [facility] Comment on above: Performed By: #### P ILLAR LIPID, PILLAR TSH, PILLAR CBC, PILLAR CMP #### [facility] [address] [place] [address] [place] #### NICOTINE QUAL #### [facility] , Bilirubin [Mass/Vol] 0.4 mg/dL Normal 0.3-1.2 [facility] Comment on above: Performed By: #### P ILLAR LIPID, PILLAR TSH, PILLAR CBC, PILLAR CMP #### [facility] [address] [place] [address] [place] #### NICOTINE QUAL #### [facility] , Calcium [Mass/Vol] 9.6 mg/dL Normal 8.2-10.2 [facility] Comment on above: Performed By: #### P ILLAR LIPID, PILLAR TSH, PILLAR CBC, PILLAR CMP #### [facility] [address] [place] [address] [place] #### NICOTINE QUAL #### [facility] , Chloride [Moles/Vol] 101 mmol/L Normal 95-114 [facility] Comment on above: Performed By: #### P ILLAR LIPID, PILLAR TSH, PILLAR CBC, PILLAR CMP #### [facility] [address] [place] [address] #### NICOTINE QUAL #### [facility] , CO2 [Moles/Vol] 24.9 mmol/L Normal 22.0-30.0 [facility] Comment on above: Performed By: #### P ILLAR LIPID, PILLAR TSH, PILLAR CBC, PILLAR CMP #### [facility] [address] [place] [address] [place] #### NICOTINE QUAL #### [facility] , Creatinine [Mass/Vol] 0.72 mg/dL Normal 0.44-1.03 [facility] Comment on above: Performed By: #### P ILLAR LIPID, PILLAR TSH, PILLAR CBC, PILLAR CMP #### [facility] [address] [place] [address] [place] #### NICOTINE QUAL #### [facility] , Estimated GFR ( Katelin > 60 Normal [facility] Comment on above: Result Comment: GFR estimated reference range: According to KDOQI guidelines, <60 ml/min/1.73m2 is sufficient to diagnose a patient with chronic kidney disease. Performed By: #### P ILLAR LIPID, PILLAR TSH, PILLAR CBC, PILLAR CMP #### [facility] [address] [place] [address] [place] #### NICOTINE QUAL #### [facility] , Estimated GFR (Non- Am > 60 Normal [facility] Comment on above: Performed By: #### P ILLAR LIPID, PILLAR TSH, PILLAR CBC, PILLAR CMP #### [facility] [address] [place] [address] [place] #### NICOTINE QUAL #### [facility] , Globulin (S) [Mass/Vol] 2.8 g/dL Normal [facility] Comment on above: Performed By: #### P ILLAR LIPID, PILLAR TSH, PILLAR CBC, PILLAR CMP #### [facility] [address] [place] [address] [place] #### NICOTINE QUAL #### [facility] , Glucose [Mass/Vol] 91 mg/dL Normal 70-100 [facility] Comment on above: Performed By: #### P ILLAR LIPID, PILLAR TSH, PILLAR CBC, PILLAR CMP #### [facility] [address] [place] [address] [place] #### NICOTINE QUAL #### [facility] , Potassium [Moles/Vol] 4.3 mmol/L Normal 3.5-5.1 [facility] Comment on above: Performed By: #### P ILLAR LIPID, PILLAR TSH, PILLAR CBC, PILLAR CMP #### [facility] [address] [place] [address] [place] #### NICOTINE QUAL #### [facility] , Protein [Mass/Vol] 6.8 g/dL Normal 6.1-7.9 [facility] Comment on above: Performed By: #### P ILLAR LIPID, PILLAR TSH, PILLAR CBC, PILLAR CMP #### [facility] [address] [place] [address] [place] #### NICOTINE QUAL #### [facility] , Sodium [Moles/Vol] 134 mmol/L Low 136-146 [facility] Comment on above: Performed By: #### P ILLAR LIPID, PILLAR TSH, PILLAR CBC, PILLAR CMP #### [facility] [address] [place] [address] #### NICOTINE QUAL #### [facility] , Urea nitrogen [Mass/Vol] 10 mg/dL Normal 9-23 [facility] Comment on above: Performed By: #### P ILLAR LIPID, PILLAR TSH, PILLAR CBC, PILLAR CMP #### [address] #### NICOTINE QUAL #### [facility] , Employee Complete Blood Coun ton 01-07-2022 Basophils (Bld) [#/Vol] 0.0 10*3/uL Normal 0.0-0.2 [facility] Comment on above: Result Comment: PERF ORMED BY: [place] [address] PATHOLOGIST PHYSICAL THERAPY RESIDENT ROBERT WEBB M.D. Performed By: #### P ILLAR LIPID, PILLAR TSH, PILLAR CBC, PILLAR CMP #### [address] #### NICOTINE QUAL #### [facility] , Basophils/100 WBC (Bld) 0.5 % Normal . [facility] Comment on above: Performed By: #### P ILLAR LIPID, PILLAR TSH, PILLAR CBC, PILLAR CMP #### [address] #### NICOTINE QUAL #### [facility] , Eosinophils (Bld) [#/Vol] 0.1 10*3/uL Normal 0.0-0.45 [facility] Comment on above: Performed By: #### P ILLAR LIPID, PILLAR TSH, PILLAR CBC, PILLAR CMP #### [facility] [address] [place] [address] [place] #### NICOTINE QUAL #### [facility] , Eosinophils/100 WBC (Bld) 1.2 % Normal . [facility] Comment on above: Performed By: #### P ILLAR LIPID, PILLAR TSH, PILLAR CBC, PILLAR CMP #### [facility] [address] [place] [address] #### NICOTINE QUAL #### [facility] , Erythrocyte distribution width (RBC) [Ratio] 16.0 % High 11.9-15.3 [facility] Comment on above: Performed By: #### P ILLAR LIPID, PILLAR TSH, PILLAR CBC, PILLAR CMP #### [address] #### NICOTINE QUAL #### [facility] , Hematocrit (Bld) [Volume fraction] 38.7 % Normal 34.0-46.4 [facility] Comment on above: Performed By: #### P ILLAR LIPID, PILLAR TSH, PILLAR CBC, PILLAR CMP #### [address] #### NICOTINE QUAL #### [facility] , Hemoglobin (Bld) [Mass/Vol] 12.7 g/dL Normal 11.8-15.4 [facility] Comment on above: Performed By: #### P ILLAR LIPID, PILLAR TSH, PILLAR CBC, PILLAR CMP #### [facility] [address] [place] [address] [place] #### NICOTINE QUAL #### [facility] , Lymphocytes (Bld) [#/Vol] 2.8 10*3/uL Normal 1.00-4.8 [facility] Comment on above: Performed By: #### P ILLAR LIPID, PILLAR TSH, PILLAR CBC, PILLAR CMP #### [place] [address] [place] #### NICOTINE QUAL #### [facility] , Lymphocytes/100 WBC (Bld) 40.3 % Normal . [facility] Comment on above: Performed By: #### P ILLAR LIPID, PILLAR TSH, PILLAR CBC, PILLAR CMP #### [facility] [address] [place] [address] [place] #### NICOTINE QUAL #### [facility] , MCH (RBC) [Entitic mass] 27.5 pg Normal 24.7-34.3 [facility] Comment on above: Performed By: #### P ILLAR LIPID, PILLAR TSH, PILLAR CBC, PILLAR CMP #### [facility] [address] [place] [address] #### NICOTINE QUAL #### [facility] , MCV (RBC) [Entitic vol] 84.2 fL Normal 80-100 [facility] Comment on above: Performed By: #### P ILLAR LIPID, PILLAR TSH, PILLAR CBC, PILLAR CMP #### [facility] [address] [place] [address] #### NICOTINE QUAL #### [facility] , Mean Corpuscular HGB Conc 32.7 g/dL Normal 32.0-35.0 [facility] Comment on above: Performed By: #### P ILLAR LIPID, PILLAR TSH, PILLAR CBC, PILLAR CMP #### [facility] [address] [place] [address] #### NICOTINE QUAL #### [facility] , Monocytes (Bld) [#/Vol] 0.3 10*3/uL Normal 0.0-0.8 [facility] Comment on above: Performed By: #### P ILLAR LIPID, PILLAR TSH, PILLAR CBC, PILLAR CMP #### [facility] [address] [place] [address] [place] #### NICOTINE QUAL #### [facility] , Monocytes/100 WBC (Bld) 5.0 % Normal . [facility] Comment on above: Performed By: #### P ILLAR LIPID, PILLAR TSH, PILLAR CBC, PILLAR CMP #### [place] [address] [place] #### NICOTINE QUAL #### [facility] , Neutrophils (Bld) [#/Vol] 3.7 10*3/uL Normal 1.8-7.7 [facility] Comment on above: Performed By: #### P ILLAR LIPID, PILLAR TSH, PILLAR CBC, PILLAR CMP #### [facility] [address] [place] [address] [place] #### NICOTINE QUAL #### [facility] , Neutrophils/100 WBC (Bld) 53.0 % Normal . [facility] Comment on above: Performed By: #### P ILLAR LIPID, PILLAR TSH, PILLAR CBC, PILLAR CMP #### [address] #### NICOTINE QUAL #### [facility] , Nucleated RBC/100 WBC (Bld) [Ratio] 0.1 % Normal 0-0.5 [facility] Comment on above: Performed By: #### P ILLAR LIPID, PILLAR TSH, PILLAR CBC, PILLAR CMP #### [facility] [address] [place] [address] [place] #### NICOTINE QUAL #### [facility] , Platelet mean volume (Bld) [Entitic vol] 7.8 fL Normal 6.3-10.7 [facility] Comment on above: Performed By: #### P ILLAR LIPID, PILLAR TSH, PILLAR CBC, PILLAR CMP #### [place] [address] [place] #### NICOTINE QUAL #### [facility] , Platelets (Bld) [#/Vol] 297 10*3/uL Normal 150-450 [facility] Comment on above: Performed By: #### P ILLAR LIPID, PILLAR TSH, PILLAR CBC, PILLAR CMP #### [facility] [address] [place] [address] [place] #### NICOTINE QUAL #### [facility] , RBC (Bld) [#/Vol] 4.60 10*6/uL Normal 3.60-5.00 [facility] Comment on above: Performed By: #### P ILLAR LIPID, PILLAR TSH, PILLAR CBC, PILLAR CMP #### [facility] [address] [place] [address] #### NICOTINE QUAL #### [facility] , WBC (Bld) [#/Vol] 6.9 10*3/uL Normal 4.5-11.0 [facility] Comment on above: Performed By: #### P ILLAR LIPID, PILLAR TSH, PILLAR CBC, PILLAR CMP #### [address] #### NICOTINE QUAL #### [facility] , Employee Lipid Profileon Cholesterol [Mass/Vol] 163 mg/dL Normal 140-200 [facility] Comment on above: Result Comment: Chol less than 200 mg/dl low risk Chol 201-239 mg/dl borderline risk Chol 240 mg/dl and greater high risk Performed By: #### P ILLAR LIPID, PILLAR TSH, PILLAR CBC, PILLAR CMP #### [address] #### NICOTINE QUAL #### [facility] , Cholesterol in HDL [Mass/Vol] 57 mg/dL Normal 35-85 [facility] Comment on above: Result Comment: HDL CHOL ATP-III CLASSIFICATION Cardiovascular Risk HDL > or equal to 60 mg/dL LOW HDL < 40 mg/dL HIGH Performed By: #### P ILLAR LIPID, PILLAR TSH, PILLAR CBC, PILLAR CMP #### [facility] [address] [place] [address] #### NICOTINE QUAL #### [facility] , Cholesterol.total/ Cholesterol in HDL [Mass ratio] 2.9 {ratio} Normal <5.0 [facility] Comment on above: Performed By: #### P ILLAR LIPID, PILLAR TSH, PILLAR CBC, PILLAR CMP #### [facility] [address] [place] [address] [place] #### NICOTINE QUAL #### [facility] , LDL Cholesterol,Calcul ated 99 mg/dL Normal 0-100 [facility] Comment on above: Result Comment: LDL ATP III CLASSIFICATION LDL less than 100 mg/dL Optimal LDL 100-129 mg/dL Near or above optimal LDL 130-159 mg/dL Borderline high LDL 160-189 mg/dL High LDL greater than 189 mg/dL Very high Performed By: #### P ILLAR LIPID, PILLAR TSH, PILLAR CBC, PILLAR CMP #### [address] #### NICOTINE QUAL #### [facility] , Triglyceride w/Reflex 34 mg/dL Low 35-149 [facility] Comment on above: Result Comment: TRIG ATP III CLASSIFICATION TRIG less than 150 mg/dL Normal TRIG 150-199 mg/dL Borderline high TRIG 200-500 mg/dL High TRIG greater than 500 mg/dL Very high Standard traceable to the Center for Disease Conrtrol and Prevention (CDC) test method. Performed By: #### P ILLAR LIPID, PILLAR TSH, PILLAR CBC, PILLAR CMP #### [address] #### NICOTINE QUAL #### [facility] , VLDL CHOLESTEROL 6 mg/dL Normal [facility] Comment on above: Performed By: #### P ILLAR LIPID, PILLAR TSH, PILLAR CBC, PILLAR CMP #### [facility] [address] [place] [address] #### NICOTINE QUAL #### [facility] , Employee Thyroid Stim Hormon jason 01-07-2022 Employee Thyroid Stim Hormone 2.14 u[iU]/mL Normal 0.45-5.33 [facility] Comment on above: Result Comment: PERF ORMED BY: [place] [address] PATHOLOGIST PHYSICAL THERAPY RESIDENT JIANLAN SUN M.D. Performed By: #### P ILLAR LIPID, PILLAR TSH, PILLAR CBC, PILLAR CMP #### [facility] [address] [place] [address] [place] #### NICOTINE QUAL #### [facility] , Nicotine Metabolite, Qual[place] 01-07-2022 Nicotine Metabolite Negative Normal Cutoff=25 [facility] Comment on above: Result Comment: Perf ormed at: - [facility] [address] [id number] Car Attendant: Josh Ortez MD, Phone: [phone] PERFORMED BY: [place] [address] PATHOLOGIST PHYSICAL THERAPY RESIDENT ROBERT WEBB M.D. Performed By: #### P ILLAR LIPID, PILLAR TSH, PILLAR CBC, PILLAR CMP #### [facility] [address] [place] [address] #### NICOTINE QUAL #### [facility] , XR [...] by: JACKIE WILLETT Date: 2020-12-16 14:53 Normal [facility] Vital Signs Date Time Vital Sign Value Performing Clinician Facility 03-01-2022 09:00-0400 Body height 175.26 cm [facility] Other [facility] Other 03-01-2022 09:00-0400 Body mass index (BMI) [Ratio] 33.81 kg/m2 [facility] Other [facility] Other 03-01-2022 09:00-0400 Body temperature 97.9 [degF] [facility] Other [facility] Other 03-01-2022 09:00-0400 Body weight 103.87 kg [facility] Other [facility] Other 03-01-2022 09:00-0400 Diastolic blood pressure 80 mm[Hg] [facility] Other [facility] Other 03-01-2022 09:00-0400 Respiratory rate 20 /min [facility] Other [facility] Other 03-01-2022 09:00-0400 SaO2% (BldA) [Mass fraction] 97 % [facility] Other [facility] Other 03-01-2022 09:00-0400 Systolic blood pressure 118 mm[Hg] [facility] Other [facility] Other 01-18-2022 09:45-0400 Body height 175.26 cm [facility] Other [facility] Other 01-18-2022 09:45-0400 Body mass index (BMI) [Ratio] 32.93 kg/m2 [facility] Other [facility] Other 01-18-2022 09:45-0400 Body temperature 97.3 [degF] [facility] Other [facility] Other 01-18-2022 09:45-0400 Body weight 101.15 kg [facility] Other [facility] Other 01-18-2022 09:45-0400 Diastolic blood pressure 72 mm[Hg] [facility] Other [facility] Other 01-18-2022 09:45-0400 Respiratory rate 20 /min [facility] Other [facility] Other 01-18-2022 09:45-0400 SaO2% (BldA) [Mass fraction] 98 % [facility] Other [facility] Other 01-18-2022 09:45-0400 Systolic blood pressure 112 mm[Hg] [facility] Other [facility] Other 03-05-2021 16:15-0400 Body height 175.26 cm [facility] Other [facility] Other 03-05-2021 16:15-0400 Body mass index (BMI) [Ratio] 35.14 kg/m2 [facility] Other [facility] Other 03-05-2021 16:15-0400 Body weight 107.96 kg [facility] Other [facility] Other 03-05-2021 16:15-0400 Diastolic blood pressure 68 mm[Hg] [facility] Other [facility] Other 03-05-2021 16:15-0400 Respiratory rate 20 /min [facility] Other [facility] Other 03-05-2021 16:15-0400 SaO2% (BldA) [Mass fraction] 98 % [facility] Other [facility] Other 03-05-2021 16:15-0400 Systolic blood pressure 110 mm[Hg] [facility] Other [facility] Other Encounters Encounter Date Encounter Type Care Provider Facility Start: 06-24-2023 End: 06-24-2023 ambulatory WILL UZMA Not Available Start: 06-10-2023 End: 06-10-2023 ambulatory WILL UZMA Not Available Start: 05-27-2023 End: 05-27-2023 ambulatory WILL UZMA Not Available Start: 05-01-2023 End: 05-01-2023 ambulatory WILL UZMA Not Available Start: 09-10-2022 End: 09-10-2022 ambulatory Susanne Soraidarachel Other [facility] Other Start: 09-10-2022 Telephone encounter Susanne Perez [facility] Start: 08-21-2022 End: 08-21-2022 ambulatory Dontrell Gallegos Other [facility] Other Start: 08-21-2022 Telephone encounter Dontrell Perez [facility] Start: 08-09-2022 End: 08-09-2022 ambulatory [facility] Other [facility] Other Start: 08-09-2022 Telephone encounter Urban Max [facility] Start: 08-07-2022 End: 08-07-2022 ambulatory [facility] Facility:[facility] Start: 08-06-2022 End: 08-06-2022 ambulatory Urban [facility] Other [facility] Other Start: 08-06-2022 Telephone encounter Urban [facility] Start: 03-26-2022 End: 03-26-2022 ambulatory [facility] Other [facility] Other Start: 03-26-2022 Telephone encounter Urban [facility] Start: 03-01-2022 End: 03-01-2022 ambulatory [facility] Other [facility] Other Start: 03-01-2022 Encounter for genera l adult medical examination without abnormal findings [facility] Start: 03-01-2022 Periodic preventive med est patient 18-39 yrs [facility] Start: 02-13-2022 End: 02-13-2022 ambulatory Georgie Nighat Other [facility] Other Start: 02-13-2022 Nursing evaluation o f patient and report Georgie Nighat [facility] Start: 02-11-2022 End: 02-11-2022 ambulatory Georgie Nighat Other [facility] Other Start: 02-11-2022 Nursing evaluation o f patient and report Georgie Nighat [facility] Start: 01-18-2022 End: 01-18-2022 ambulatory Urban [facility] Other [facility] Other Start: 01-18-2022 Office outpatient visit 15 minutes [facility] Start: 01-12-2022 End: 01-12-2022 ambulatory Georgie Nighat Other [facility] Other Start: 01-12-2022 Nursing evaluation o f patient and report Georgie Nighat [facility] Start: 01-07-2022 End: 01-07-2022 ambulatory Asim Garber Facility:[facility] Start: 03-05-2021 Encounter for genera l adult medical examination without abnormal findings [facility] Start: 03-05-2021 Periodic preventive med est patient 18-39 yrs [facility] Start: 12-16-2020 End: 12-16-[address] DOCTOR RAMIREZ Facility:[facility] Procedures Date Procedure Procedure Detail Performing Clinician Start: 08-07-2022 Piperacillin/tazobactam [facility] Other Immunizations Immunization Date Immunization Notes Care Provider [place] 02-27-2021 influenza, seasonal, injectable [facility] Other [facility] Other 02-29-2020 influenza, injectable, quadrivalent, contains preservative [facility] Other [facility] Other 02-07-2020 influenza, injectable, quadrivalent, contains preservative Patient Objection [facility] Other [facility] Other NEGATED: Highlighted row has not occurred!02-07-2020 influenza, injectable, quadrivalent, contains preservative Patient Objection Georgie Disla Other [facility] Other Payers Date Payer Category Payer Medicaid [id number] 2022 Unknown [id number] 2021 Self-pay 1994 Unknown [id number] 2.16.84 [id number] 1994 Unknown [id number] 2.16.84 [id number] 1994 Unknown [id number] 2.16.84 [id number] 1994 Unknown [id number] 1994 Unknown [id number] 1959 Unknown [id number] Unknown [id number] 2.16.8 [id number] Unknown [id number] 2.16.8 [id number] Social History Date Type Detail Facility Unknown if ever smoked [facility] Other Sex Assigned At Sex Assigned At Bir th [facility] Other Clinical Notes 03-05-2021 to 08-21-2022 Note Date & Type Note Facility 08-21-2022 Evaluation note Encounter Date Diagnosis Assessment Notes Jul, Acute non-recurrent frontal sinusitis (ICD-10 - J01.10) [facility] Other 03-14-2023 Evaluation note* Encounter Date Diagnosis Assessment Notes Treatment Notes Treatment Clinical Notes Jul, Dysuria (ICD-10 - R30.0) [facility] Other 11-01-2022 Evaluation note* Encounter Date Diagnosis Assessment Notes Treatment Notes Treatment Clinical Notes Mar, Anxiety (ICD-10 - F41.9) [facility] Other 10-07-2022 Evaluation note* Encounter Date Diagnosis Assessment Notes Treatment Notes Treatment Clinical Notes Feb, Encntr for general adult medical exam w/o abnormal findings (ICD-10 - Z00.00) Feb, Other No change today...Continue as is...FU 6 months.... [facility] Other 09-21-2022 Evaluation note* Encounter Date Diagnosis Assessment Notes Treatment Notes Treatment Clinical Notes Jan, Contact with and (suspected) exposure to other viral communicable diseases (ICD-10 - Z20.828) [facility] Other 09-19-2022 Evaluation note* Encounter Date Diagnosis Assessment Notes Treatment Notes Treatment Clinical Notes Jan, Contact with and (suspected) exposure to other viral communicable diseases (ICD-10 - Z20.828) [facility] Other 08-26-2022 Evaluation note* Encounter Date Diagnosis Assessment Notes Treatment Notes Treatment Clinical Notes Dec, Anxiety (ICD-10 - F41.9) E Rx sent. Lengthy discussion with patient that I think we need to try something than just a straight SSRI. We will see patient back in review. We talked about potential side effects as well as outcomes. She will call with any concerns. [facility] Other 08-20-2022 Evaluation note* Encounter Date Diagnosis Assessment Notes Treatment Notes Treatment Clinical Notes Dec, Contact with and (suspected) exposure to other viral communicable diseases (ICD-10 - Z20.828) [facility] Other 10-11-2021 Evaluation note* Encounter Date Diagnosis Assessment Notes Treatment Notes Treatment Clinical Notes Feb, Encntr for general adult medical exam w/o abnormal findings (ICD-10 - Z00.00) Feb, Other No change today...Continue as is...FU PRN/Yearly... [facility] Other Evaluation noteNo InformationNortCrepeGuys Other History general Narrative - Reported* Type Description Date Medical History Hx of MRSA Medical History anxiety Surgical History tonsillectomy and adenoidectomy 2012 Surgical History c-sections 2009 and 2017 Hospitalization History C Sections [facility] Other Summary Purpose Family History No Family [...] DATE CREATED AUTHOR AUTHOR'S ORGANIZ ATION 06/25/2023 [facility] EPIC REASON FOR VISIT (unrecogniz ed section and content) 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 [facility]. provides no warranty or guarantee of the accuracy or completeness of information in this document.
--- NOTE | 2023-07-07 17:09 | US_ITS ---
[address] [address] Patient Name: JARVIS MACEDO MRN: [id number] date: 1995 Sex: F Assigned Patient Location: [facility] Current Patient Location: Accession/Order Number: [id number] Exam Date: 07/07/2023 17:13 Report Date: 07/08/2023 07:11 At the request of: TALITA LEARY Procedure: US OB BPP w non-stress EXAMINATION: US OB BPP w non-stress HISTORY: EXCESSIVE GROWTH AFFECTING [id number] COMPARISON: No relevant comparison available. TECHNIQUE: Ultrasound biophysical profile was performed in the radiology department. FINDINGS: BREATHING MOVEMENTS: 2.0 GROSS BODY MOVEMENTS: 2.0 TONE: 2.0 QUALITATIVE AMNIOTIC FLUID VOLUME: 2.0 PRESENTATION: CEPHALIC HEART RATE: 129.2 bpm H.B./min AMNIOTIC FLUID VOLUME: 10.6 cm cm GESTATIONAL AGE: 34 weeks 3 days CONCLUSION: Total biophysical profile score: 8.0 Electronically authenticated by: REBEL FRANK Date: 07/08/2023 07:11
[2023-07-07 17:41] VITALS: BP 133/60; PULSE 76
== END 2023-07-07 18:16 | disposition home or self-care (01) ==
LOC: US 07:33 → FBC 17:13
PROVIDERS: PCP Family Medicine; Visit Provider Obstetrics & Gynecology
DX: O36.63X1 Maternal care for excessive fetal growth, third trimester, fetus 1 (principal); Z3A.34 34 weeks gestation of pregnancy
CPT/HCPCS: 76818

== ENCOUNTER 2023-07-10 08:00 | Outpatient (OUT) | payer BC, OTHER, SELFPAY ==
--- OUTSIDE RECORDS SUMMARY | 2023-07-10 08:04 | XMS_ITS | CCD ---
Author Name Unknown Address [facility] [employer] [facility] [address] [place] [id number] Organization [facility] Care Team Providers Care Stick Roller Name Role Phone TARYN, DR GA Primary Care Unavailable MAGUE, DR MAUDE Pathak Admitting Unavailabl e MAGUE, DR MAUDE Pathak Consulting Unavailabl e MAGUE, DR MAUDE Pathak Attending UnavailJackie Morrow Unavailable Urban Santana Unavailable Georgie Disla Unavailable Asim Garber Admitting Unavailable Asim Garber Attending Unavailable Urban aSntana Primary Care Unavailable Urban Santana Attending Unavailable Urban Santana Admitting Unavailable Urban Santana Primary Care Unavailable Dontrell Gallegos Unavailable Susanne Huitron Unavailable Urban Santana MD Primary Care Provider [phone] ARPITA GUSMAN Attending Unavailable ARPITA GUSMAN Attending Unavailable ARPITA GUSMAN Attending Unavailable ARPITA GUSMAN Attending Unavailable ARPITA GUSMAN Attending Unavailable Medications Current Medications Medication [...] TWICE DAILY for 7 days Jul, Active citalopram 20 mg oral tablet (2 sources) Serotonin Reuptake Inhibitor Start: 02-13-2023 take 1 tablet by mouth once daily in the morning citalopram (CeleXA) 20 MG tablet Indications: Anxiety, generalized (CMS/HCC) TAKE 1 TABLET BY MOUTH EVERY DAY IN THE MORNING 30 tablet 11 02/13/2023 Active DULoxetine 30 mg delayed release oral capsule (5 sources) Serotonin and Norepinephrine Reuptake Inhibitor Start: 01-18-2022 take 1 capsule by mouth every twenty-four hours DULoxetine HCl 30 MG 1 capsule Orally Once a day for 30 day(s) Dec, Active Start: 01-18-2022 take 1 capsule by mo uth every twenty-four hours DULoxetine HCl 20 MG [...] 800 mg taken at a time. Active magnesium oxide 400 mg oral capsule (2 sources) Start: 2022 End: 2023 take 1 capsule by mouth in the morning magnesium oxide 400 MG capsule Indications: Restless leg , headache in first trimester Take 1 capsule (400 mg) by mouth in the morning. 30 capsule 11 02/13/2023 02/13/2024 Active Multivitamin/Iron (9 sources) Multivitamin/Iro n once daily Active nitrofurantoin, macrocrystals 25 mg / nitrofurantoin, monohydrate 75 mg oral capsule (4 sources) Nitrofuran Antibacterial Start: 2022 take 1 capsule by mouth every twelve hours Macrobid 100 MG 1 capsule with food Orally every 12 hrs for 7 day(s) Jul, Active omeprazole 20 mg delayed release oral capsule (2 sources) Proton Pump Inhibitor Start: 2022 take 1 capsule by mouth before mealtime omeprazole (PriLOSEC) [address] capsule Indications: Heart burn TAKE 1 CAPSULE BY MOUTH IN THE MORNING. TAKE BEFORE MEALS. DO NOT CRUSH OR CHEW. 30 capsule 11 01/20/2023 Active polysaccharide iron complex 391 mg oral capsule (2 sources) Start: 2023 End: 2023 take 1 capsule by mouth in the morning iron polysaccharides (ProFe) 391.3 (180 Fe) MG capsule Indications: Third trimester Take 1 capsule (391.3 mg) by mouth in the morning. 30 capsule 3 06/11/2023 10/09/2023 Active vitamin (Prenatabs Rx) 29-1 MG tablet (2 sources) Start: 2022 End: 2023 take 1 tablet by mouth in the morning vitamin (Prenatabs Rx) 29-1 MG tablet Indications: examination or test, positive result Take 1 tablet by mouth in the morning. 30 tablet 11 01/20/2023 01/20/2024 Active sertraline 50 mg oral tablet (2 sources) Serotonin Reuptake Inhibitor Start: 2020 take 1 tablet by mouth every twenty-four hours Zoloft 50 MG 1 tablet Orally Once a day for 30 day(s) Dec, Active terconazole 4 mg/ml vaginal cream (2 sources) Azole Antifungal Start: 2023 End: 2023 terconazole (Terazol 7) 0.4 % vaginal cream Indications: Yeast infection Insert 1 applicator into the vagina at bedtime for 7 days 45 g 0 07/08/2023 07/15/2023 Active Problems Active Problems Problem Classification Problem Date Documented Da te Episodic/Chronic Anxiety disorders (15 sources) Anxiety; Translations: [Anxiety disorder, unspecified] Onset: 01-18-2022 Resolved: 01-18-2022 Chronic E Codes: Cut/pierceb (1 source) Contact with sharp glass, initial encounter; Translations: [CONTACT W/SHARP GLASS INITIAL ENC] Onset: 12-19-2020 Episodic Immunizations and screening for infectious disease (14 sources) Encounter for immunization; Translations: [Contact with and (suspected) exposure to other viral communicable diseases] Onset: 12-19-2020 Resolved: 02-11-2022 Episodic Mood disorders (2 sources) Depressive disorder; Translations: [Depression] Onset: 11-18-2022 11-18-2022 Chronic Open wounds of extremities (4 sources) Laceration without foreign body of right forearm, initial encounter; Translations: [LACERATION W/O FB RT FORARM INITIAL] Onset: 12-16-2020 Episodic Other eye disorders (2 sources) Bilateral vitreous floaters; Translations: [Other vitreous opacities, bilateral] Onset: 11-18-2022 11-18-2022 Chronic Other female genital disorders (2 sources) Abnormal uterine bleeding; Translations: [Abnormal uterine and vaginal bleeding, unspecified] Onset: 11-18-2022 11-18-2022 Chronic Other nutritional; endocrine; and metabolic disorders (2 sources) Obesity; Translations: [Obesity, unspecified] Onset: 11-18-2022 11-18-2022 Chronic Other and delivery including normal (2 sources) Third trimester ; Translations: [Encounter for supervision of normal , unspecified, third trimester] 07-08-2023 Episodic Other upper respiratory infections (1 source) Acute frontal sinusitis, unspecified Episodic Residual codes; unclassified (11 sources) Insomnia; Translations: [Insomnia, unspecified] Episodic Past or Other Problems Problem Classification Problem Date Documented Da te Episodic/Chronic Genitourinary symptoms and ill-defined conditions (4 sources) Dysuria; Translations: [Dysuria] Onset: 08-07-2022 Episodic Joint disorders and dislocations; trauma-related (2 sources) Recurrent dislocation of shoulder region; Translations: [Recurrent dislocation, unspecified shoulder] Onset: 02-21-2009 12-03-2022 Episodic Other screening for suspected conditions (not mental disorders or infectious disease) (2 sources) Liver function tests abnormal; Translations: [Abnormal results of liver function studies] Onset: 11-18-2022 11-18-2022 Episodic Results Test Name Value Interpretation Reference Range Facility Urinalysis macro (dipstick) panel (U)on 07-08-2023 Bilirubin, UA Negative Negative - 4(70) +++ mg/dL [facility] Blood, UA Negative Negative - 50 Rodriguez/mcL [facility] Clarity, UA Clear [facility] Color, UA Yellow [facility] Glucose, UA Negative Negative - 2000(110) ++++ mg/dL [facility] Interpretation and review of laboratory results Abnormal [facility] Ketones, UA Negative Negative - 160(16) ++++ mg/dL [facility] Leukocytes, UA Positive Negative - 500+++ Dg/mcL [facility] Nitrite, UA Negative Negative - Positive [facility] pH, UA 5.5 5 - 9 [facility] Protein, UA Negative Negative - 1999(20) ++++ mg/dL [facility] Spec Grav, UA 1.015 1 - 1.03 [facility] Urobilinogen, UA 1.0 0.2 - 12 mg/dL [facility] Urine Cultureon 08-07-2022 Urine Culture >100,000 [facility] Other Urine Culture <16 Susceptible Digiting Other Urine Culture <8/4 Susceptible Digiting Other Urine Culture >16 Resistant [employer] Other Urine Culture <4 Susceptible Digiting Other Urine Culture <2 Susceptible Digiting Other Urine Culture <1 Susceptible [facility]iting Other Urine Culture <0.25 Susceptible Digiting Other Urine Culture <0.5 Susceptible Digiting Other Urine Culture >8 Resistant [facility] Other Urine Culture <32 Susceptible Digiting Other Urine Culture 4 Susceptible Digiting Other Urine Culture >2/38 Resistant [employer] Other Bacteria identified Cx Nom (U) Reason for Exam Dysuria Urine Reason for Exam: Dysuria : Urine ORGANISM: Escherichia coli (O:ESCCOL) [place] Count >100,000 Aerobic REMY Charge (NMIC56) ------ SUSCEPTIBILITY ----- ORGANISM: O:ESCCOL ANTIBIOTIC INTERPRETATION REMY Amikacin S <16 Amoxacillin/K Clavulanate S <8 Ampicillin R >16 Ampicillin/Sulbacta m I 1616/8 Aztreonam S <4 Cefazolin S <2 Cefepime S <2 Ceftazidime S <1 Ceftazidime/Avibact am S <4 Ceftolozane/Tazobac pacheco S <2 Ceftriaxone S <1 Cefuroxime S <4 Ciprofloxacin S <0.25 Ertapenem S <0.5 Gentamicin R >8 Levofloxacin S <0.5 Meropenem S <1 Meropenem/Vaborbact am S <2 Nitrofurantoin S <32 Piperacillin/Tazoba ctam S <8 Tetracycline S <4 Tigecycline S <2 Tobramycin S 4 Trimethoprim/Sulfam ethoxazole R >2 S = SUSCEPTIBLE I = [...] RESISTANT TO ALL B-LACTAM DRUGS. PERFORMED BY: [place] [address] PATHOLOGIST BURRITO MAKER ROBERT WEBB M.D. [facility] Comment on above: Performed By: #### C UU #### [address] SARS-CoV-2 (COVID-19) RNA NA A+probe Ql (Resp)on 02-13-2022 SARS-CoV-2 (COVID-19) RNA CLAY+probe Ql (Unsp spec) Positive [facility] Other SARS-CoV-2 (COVID-19) RNA NA A+probe Ql (Resp)on 02-11-2022 SARS-CoV-2 (COVID-19) RNA CLAY+probe Ql (Unsp spec) Negative [facility] Other SARS-CoV-2 (COVID-19) RNA NA A+probe Ql (Resp)on 01-12-2022 SARS-CoV-2 (COVID-19) RNA CLAY+probe Ql (Unsp spec) Negative [employer] Other Employee Comp Metabolic Kokoe jakob 01-07-2022 Albumin [Mass/Vol] 4.0 g/dL Normal 3.2-5.5 [facility] Comment on above: Performed By: #### P ILLAR LIPID, PILLAR TSH, PILLAR CBC, PILLAR CMP #### [facility] [address] [place] [address] [place] #### NICOTINE QUAL #### [facility] , Albumin/Globulin [Mass ratio] 1.4 {ratio} Normal [facility] Comment on above: Performed By: #### P ILLAR LIPID, PILLAR TSH, PILLAR CBC, PILLAR CMP #### [facility] [address] [place] [address] #### NICOTINE QUAL #### [facility] , ALP [Catalytic activity/Vol] 72 U/L Normal 32-92 [facility] Comment on above: Performed By: #### P ILLAR LIPID, PILLAR TSH, PILLAR CBC, PILLAR CMP #### [facility] [address] [place] [address] [place] #### NICOTINE QUAL #### [facility] , ALT [Catalytic activity/Vol] 20 U/L Normal 10-60 [facility] Comment on above: Performed By: #### P ILLAR LIPID, PILLAR TSH, PILLAR CBC, PILLAR CMP #### [facility] [address] [place] [address] [place] #### NICOTINE QUAL #### [facility] , AST [Catalytic activity/Vol] 23 U/L Normal 10-42 [facility] Comment on above: Performed By: #### P ILLAR LIPID, PILLAR TSH, PILLAR CBC, PILLAR CMP #### [facility] [address] [place] [address] [place] #### NICOTINE QUAL #### [facility] , Bilirubin [Mass/Vol] 0.4 mg/dL Normal 0.3-1.2 [facility] Comment on above: Performed By: #### P ILLAR LIPID, PILLAR TSH, PILLAR CBC, PILLAR CMP #### [facility] [address] [place] [address] [place] #### NICOTINE QUAL #### [facility] , Calcium [Mass/Vol] 9.6 mg/dL Normal 8.2-10.2 [facility] Comment on above: Performed By: #### P ILLAR LIPID, PILLAR TSH, PILLAR CBC, PILLAR CMP #### [facility] [address] [place] [address] [place] #### NICOTINE QUAL #### [facility] , Chloride [Moles/Vol] 101 mmol/L Normal 95-114 [facility] Comment on above: Performed By: #### P ILLAR LIPID, PILLAR TSH, PILLAR CBC, PILLAR CMP #### [facility] [address] [place] [address] [place] #### NICOTINE QUAL #### [facility] , CO2 [Moles/Vol] 24.9 mmol/L Normal 22.0-30.0 [facility] Comment on above: Performed By: #### P ILLAR LIPID, PILLAR TSH, PILLAR CBC, PILLAR CMP #### [facility] [address] [place] [address] [place] #### NICOTINE QUAL #### [facility] , Creatinine [Mass/Vol] 0.72 mg/dL Normal 0.44-1.03 [facility] Comment on above: Performed By: #### P ILLAR LIPID, PILLAR TSH, PILLAR CBC, PILLAR CMP #### [facility] [address] [place] [address] [place] #### NICOTINE QUAL #### [facility] , Estimated GFR ( Katelin > 60 Normal [facility] Comment on above: Result Comment: GFR estimated reference range: According to KDOQI guidelines, <60 ml/min/1.73m2 is sufficient to diagnose a patient with chronic kidney disease. Performed By: #### P ILLAR LIPID, PILLAR TSH, PILLAR CBC, PILLAR CMP #### [facility] [address] [place] [address] [place] #### NICOTINE QUAL #### [facility] , Estimated GFR (Non- Am > 60 Normal [facility] Comment on above: Performed By: #### P ILLAR LIPID, PILLAR TSH, PILLAR CBC, PILLAR CMP #### [place] [address] [place] #### NICOTINE QUAL #### [facility] , Globulin (S) [Mass/Vol] 2.8 g/dL Normal [facility] Comment on above: Performed By: #### P ILLAR LIPID, PILLAR TSH, PILLAR CBC, PILLAR CMP #### [place] [address] [place] #### NICOTINE QUAL #### [facility] , Glucose [Mass/Vol] 91 mg/dL Normal 70-100 [facility] Comment on above: Performed By: #### P ILLAR LIPID, PILLAR TSH, PILLAR CBC, PILLAR CMP #### [place] [address] [place] #### NICOTINE QUAL #### [facility] , Potassium [Moles/Vol] 4.3 mmol/L Normal 3.5-5.1 [facility] Comment on above: Performed By: #### P ILLAR LIPID, PILLAR TSH, PILLAR CBC, PILLAR CMP #### [facility] [address] [place] [address] [place] #### NICOTINE QUAL #### [facility] , Protein [Mass/Vol] 6.8 g/dL Normal 6.1-7.9 [facility] Comment on above: Performed By: #### P ILLAR LIPID, PILLAR TSH, PILLAR CBC, PILLAR CMP #### [place] [address] [place] #### NICOTINE QUAL #### [facility] , Sodium [Moles/Vol] 134 mmol/L Low 136-146 [facility] Comment on above: Performed By: #### P ILLAR LIPID, PILLAR TSH, PILLAR CBC, PILLAR CMP #### [facility] [address] [place] [address] #### NICOTINE QUAL #### [facility] , Urea nitrogen [Mass/Vol] 10 mg/dL Normal 9-23 [facility] Comment on above: Performed By: #### P ILLAR LIPID, PILLAR TSH, PILLAR CBC, PILLAR CMP #### [facility] [address] [place] [address] #### NICOTINE QUAL #### [facility] , Employee Complete Blood Coun ton 01-07-2022 Basophils (Bld) [#/Vol] 0.0 10*3/uL Normal 0.0-0.2 [facility] Comment on above: Result Comment: PERF ORMED BY: [place] [address] PATHOLOGIST BURRITO MAKER ROBERT WEBB M.D. Performed By: #### P ILLAR LIPID, PILLAR TSH, PILLAR CBC, PILLAR CMP #### [address] #### NICOTINE QUAL #### [facility] , Basophils/100 WBC (Bld) 0.5 % Normal . [facility] Comment on above: Performed By: #### P ILLAR LIPID, PILLAR TSH, PILLAR CBC, PILLAR CMP #### [facility] [address] [place] [address] [place] #### NICOTINE QUAL #### [facility] , Eosinophils (Bld) [#/Vol] 0.1 10*3/uL Normal 0.0-0.45 [facility] Comment on above: Performed By: #### P ILLAR LIPID, PILLAR TSH, PILLAR CBC, PILLAR CMP #### [place] [address] [place] #### NICOTINE QUAL #### [facility] , Eosinophils/100 WBC (Bld) 1.2 % Normal . [facility] Comment on above: Performed By: #### P ILLAR LIPID, PILLAR TSH, PILLAR CBC, PILLAR CMP #### [facility] [address] [place] [address] [place] #### NICOTINE QUAL #### [facility] , Erythrocyte distribution width (RBC) [Ratio] 16.0 % High 11.9-15.3 [facility] Comment on above: Performed By: #### P ILLAR LIPID, PILLAR TSH, PILLAR CBC, PILLAR CMP #### [address] #### NICOTINE QUAL #### [facility] , Hematocrit (Bld) [Volume fraction] 38.7 % Normal 34.0-46.4 [facility] Comment on above: Performed By: #### P ILLAR LIPID, PILLAR TSH, PILLAR CBC, PILLAR CMP #### [facility] [address] [place] [address] [place] #### NICOTINE QUAL #### [facility] , Hemoglobin (Bld) [Mass/Vol] 12.7 g/dL Normal 11.8-15.4 [facility] Comment on above: Performed By: #### P ILLAR LIPID, PILLAR TSH, PILLAR CBC, PILLAR CMP #### [place] [address] [place] #### NICOTINE QUAL #### [facility] , Lymphocytes (Bld) [#/Vol] 2.8 10*3/uL Normal 1.00-4.8 [facility] Comment on above: Performed By: #### P ILLAR LIPID, PILLAR TSH, PILLAR CBC, PILLAR CMP #### [facility] [address] [place] [address] [place] #### NICOTINE QUAL #### [facility] , Lymphocytes/100 WBC (Bld) 40.3 % Normal . [facility] Comment on above: Performed By: #### P ILLAR LIPID, PILLAR TSH, PILLAR CBC, PILLAR CMP #### [facility] [address] [place] [address] #### NICOTINE QUAL #### [facility] , MCH (RBC) [Entitic mass] 27.5 pg Normal 24.7-34.3 [facility] Comment on above: Performed By: #### P ILLAR LIPID, PILLAR TSH, PILLAR CBC, PILLAR CMP #### [facility] [address] [place] [address] #### NICOTINE QUAL #### [facility] , MCV (RBC) [Entitic vol] 84.2 fL Normal 80-100 [facility] Comment on above: Performed By: #### P ILLAR LIPID, PILLAR TSH, PILLAR CBC, PILLAR CMP #### [address] #### NICOTINE QUAL #### [facility] , Mean Corpuscular HGB Conc 32.7 g/dL Normal 32.0-35.0 [facility] Comment on above: Performed By: #### P ILLAR LIPID, PILLAR TSH, PILLAR CBC, PILLAR CMP #### [facility] [address] [place] [address] [place] #### NICOTINE QUAL #### [facility] , Monocytes (Bld) [#/Vol] 0.3 10*3/uL Normal 0.0-0.8 [facility] Comment on above: Performed By: #### P ILLAR LIPID, PILLAR TSH, PILLAR CBC, PILLAR CMP #### [facility] [address] [place] [address] #### NICOTINE QUAL #### [facility] , Monocytes/100 WBC (Bld) 5.0 % Normal . [facility] Comment on above: Performed By: #### P ILLAR LIPID, PILLAR TSH, PILLAR CBC, PILLAR CMP #### [facility] [address] [place] [address] [place] #### NICOTINE QUAL #### [facility] , Neutrophils (Bld) [#/Vol] 3.7 10*3/uL Normal 1.8-7.7 [facility] Comment on above: Performed By: #### P ILLAR LIPID, PILLAR TSH, PILLAR CBC, PILLAR CMP #### [facility] [address] [place] [address] #### NICOTINE QUAL #### [facility] , Neutrophils/100 WBC (Bld) 53.0 % Normal . [facility] Comment on above: Performed By: #### P ILLAR LIPID, PILLAR TSH, PILLAR CBC, PILLAR CMP #### [facility] [address] [place] [address] [place] #### NICOTINE QUAL #### [facility] , Nucleated RBC/100 WBC (Bld) [Ratio] 0.1 % Normal 0-0.5 [facility] Comment on above: Performed By: #### P ILLAR LIPID, PILLAR TSH, PILLAR CBC, PILLAR CMP #### [facility] [address] [place] [address] #### NICOTINE QUAL #### [facility] , Platelet mean volume (Bld) [Entitic vol] 7.8 fL Normal 6.3-10.7 [facility] Comment on above: Performed By: #### P ILLAR LIPID, PILLAR TSH, PILLAR CBC, PILLAR CMP #### [facility] [address] [place] [address] [place] #### NICOTINE QUAL #### [facility] , Platelets (Bld) [#/Vol] 297 10*3/uL Normal 150-450 [facility] Comment on above: Performed By: #### P ILLAR LIPID, PILLAR TSH, PILLAR CBC, PILLAR CMP #### [place] [address] [place] #### NICOTINE QUAL #### [facility] , RBC (Bld) [#/Vol] 4.60 10*6/uL Normal 3.60-5.00 [facility] Comment on above: Performed By: #### P ILLAR LIPID, PILLAR TSH, PILLAR CBC, PILLAR CMP #### [place] [address] [place] #### NICOTINE QUAL #### [facility] , WBC (Bld) [#/Vol] 6.9 10*3/uL Normal 4.5-11.0 [facility] Comment on above: Performed By: #### P ILLAR LIPID, PILLAR TSH, PILLAR CBC, PILLAR CMP #### [address] #### NICOTINE QUAL #### [facility] , Employee Lipid Profileon Cholesterol [Mass/Vol] 163 mg/dL Normal 140-200 [facility] Comment on above: Result Comment: Chol less than 200 mg/dl low risk Chol 201-239 mg/dl borderline risk Chol 240 mg/dl and greater high risk Performed By: #### P ILLAR LIPID, PILLAR TSH, PILLAR CBC, PILLAR CMP #### [place] [address] [place] #### NICOTINE QUAL #### [facility] , Cholesterol in HDL [Mass/Vol] 57 mg/dL Normal 35-85 [facility] Comment on above: Result Comment: HDL CHOL ATP-III CLASSIFICATION Cardiovascular Risk HDL > or equal to 60 mg/dL LOW HDL < 40 mg/dL HIGH Performed By: #### P ILLAR LIPID, PILLAR TSH, PILLAR CBC, PILLAR CMP #### [place] [address] [place] #### NICOTINE QUAL #### [facility] , Cholesterol.total/Ch olesterol in HDL [Mass ratio] 2.9 {ratio} Normal <5.0 [facility] Comment on above: Performed By: #### P ILLAR LIPID, PILLAR TSH, PILLAR CBC, PILLAR CMP #### [facility] [address] [place] [address] #### NICOTINE QUAL #### [facility] , LDL Cholesterol,Calculat ed 99 mg/dL Normal 0-100 [facility] Comment on above: Result Comment: LDL ATP III CLASSIFICATION LDL less than 100 mg/dL Optimal LDL 100-129 mg/dL Near or above optimal LDL 130-159 mg/dL Borderline high LDL 160-189 mg/dL High LDL greater than 189 mg/dL Very high Performed By: #### P ILLAR LIPID, PILLAR TSH, PILLAR CBC, PILLAR CMP #### [address] #### NICOTINE QUAL #### [facility] , Triglyceride w/Reflex 34 mg/dL Low 35-149 [facility] Comment on above: Result Comment: TRIG ATP III CLASSIFICATION TRIG less than 150 mg/dL Normal TRIG 150-199 mg/dL Borderline high TRIG 200-500 mg/dL High TRIG greater than 500 mg/dL Very high Standard traceable to the Center for Disease Conrtrol and Prevention (CDC) test method. Performed By: #### P ILLAR LIPID, PILLAR TSH, PILLAR CBC, PILLAR CMP #### [place] [address] [place] #### NICOTINE QUAL #### [facility] , VLDL CHOLESTEROL 6 mg/dL Normal [facility] Comment on above: Performed By: #### P ILLAR LIPID, PILLAR TSH, PILLAR CBC, PILLAR CMP #### [facility] [address] [place] [address] [place] #### NICOTINE QUAL #### [facility] , Employee Thyroid Stim Hormon jason 01-07-2022 Employee Thyroid Stim Hormone 2.14 u[iU]/mL Normal 0.45-5.33 [facility] Comment on above: Result Comment: PERF ORMED BY: [place] [address] PATHOLOGIST BURRITO MAKER ROBERT WEBB M.D. Performed By: #### P ILLAR LIPID, PILLAR TSH, PILLAR CBC, PILLAR CMP #### [address] #### NICOTINE QUAL #### [facility] , Nicotine Metabolite, Qualon 01-07-2022 Nicotine Metabolite Negative Normal Cutoff=25 [facility] Comment on above: Result Comment: Perf ormed at: - [facility] [address] [id number] [employer]: Josh Ortez MD, Phone: [phone] PERFORMED BY: [place] [address] PATHOLOGIST BURRITO MAKER ROBERT WEBB M.D. Performed By: #### P ILLAR LIPID, PILLAR TSH, PILLAR CBC, PILLAR CMP #### [address] #### NICOTINE QUAL #### [facility] , [...] by: JACKIE WILLETT Date: 2020-12-16 14:53 Normal [facility] Vital Signs Date Time Vital Sign Value Performing Clinician Facility 07-08-2023 13:27-0500 Body mass index (BMI) [Ratio] 38.51 kg/m2 Arpita GARDNER Work Phone: [facility] 07-08-2023 13:27-0500 Body weight 116.57 kg Arpita Gusman KENDRA Work Phone: [facility] 07-08-2023 13:27-0500 Diastolic blood pressure 70 mm[Hg] Arpita Gusman KENDRA Work Phone: [facility] 07-08-2023 13:27-0500 Systolic blood pressure 112 mm[Hg] Arpita Gusman KENDRA Work Phone: [facility] 03-01-2022 09:00-0400 Body height 175.26 cm [facility] Other 03-01-2022 09:00-0400 Body mass index (BMI) [Ratio] 33.81 kg/m2 [facility] Other 03-01-2022 09:00-0400 Body temperature 97.9 [degF] [facility] Other 03-01-2022 09:00-0400 Body weight 103.87 kg [facility] Other [facility] Other 03-01-2022 09:00-0400 Diastolic blood pressure 80 mm[Hg] [facility] Other 03-01-2022 09:00-0400 Respiratory rate 20 /min [facility] Other 03-01-2022 09:00-0400 SaO2% (BldA) [Mass fraction] 97 % [facility] Other 03-01-2022 09:00-0400 Systolic blood pressure 118 mm[Hg] [facility] Other 01-18-2022 09:45-0400 Body height 175.26 cm [facility] Other 01-18-2022 09:45-0400 Body mass index (BMI) [Ratio] 32.93 kg/m2 [facility] Other [facility] Other 01-18-2022 09:45-0400 Body temperature 97.3 [degF] Urban Max Other [facility] Other 01-18-2022 09:45-0400 Body weight 101.15 kg Urban Max Other [facility] Other 01-18-2022 09:45-0400 Diastolic blood pressure 72 mm[Hg] Urban Max Other [facility] Other 01-18-2022 09:45-0400 Respiratory rate 20 /min Urban Max Other [facility] Other 01-18-2022 09:45-0400 SaO2% (BldA) [Mass fraction] 98 % Urban Max Other [facility] Other 01-18-2022 09:45-0400 Systolic blood pressure 112 mm[Hg] Urban Max Other [facility] Other 03-05-2021 16:15-0400 Body height 175.26 cm Urban Max Other [facility] Other 03-05-2021 16:15-0400 Body mass index (BMI) [Ratio] 35.14 kg/m2 Urban Max Other [facility] Other 03-05-2021 16:15-0400 Body weight 107.96 kg Urban Max Other [facility] Other 03-05-2021 16:15-0400 Diastolic blood pressure 68 mm[Hg] Urban Max Other [facility] Other 03-05-2021 16:15-0400 Respiratory rate 20 /min Urban Max Other [facility] Other 03-05-2021 16:15-0400 SaO2% (BldA) [Mass fraction] 98 % Urban Max Other [facility] Other 03-05-2021 16:15-0400 Systolic blood pressure 110 mm[Hg] Urban Max Other [facility] Other Encounters Encounter Date Encounter Type Care Provider Facility Start: 07-08-2023 End: 07-08-2023 ambulatory ARPITA UZMA Not Available Start: 07-08-2023 End: 07-08-2023 flow sheet Arpita Gusman PA Work Phone: [facility] Comment on above: Third trimester preg opal Start: 06-24-2023 End: 06-24-2023 ambulatory ARPITA UZMA Not Available Start: 06-10-2023 End: 06-10-2023 ambulatory ARPITA UZMA Not Available Start: 05-27-2023 End: 05-27-2023 ambulatory ARPITA UZMA Not Available Start: 05-01-2023 End: 05-01-2023 ambulatory ARPITA UZMA Not Available Start: 09-10-2022 End: 09-10-2022 ambulatory Susanne Huitron Other [facility] Other Start: 09-10-2022 Telephone encounter [facility] Start: 08-21-2022 End: 08-21-2022 ambulatory Dontrell Gallegos Other [facility] Other Start: 08-21-2022 Telephone encounter Dontrell [facility] Start: 08-09-2022 End: 08-09-2022 ambulatory Urban Max Other [facility] Other Start: 08-09-2022 Telephone encounter Urban Max [facility] Start: 08-07-2022 End: 08-07-2022 ambulatory Urban M. Max Facility:[facility] Start: 08-06-2022 End: 08-06-2022 ambulatory Urban Max Other [facility] Other Start: 08-06-2022 Telephone encounter Urban Max [facility] Start: 03-26-2022 End: 03-26-2022 ambulatory Urban Max Other [facility] Other Start: 03-26-2022 Telephone encounter Urban Max [facility] Start: 03-01-2022 End: 03-01-2022 ambulatory Urban Max Other [facility] Other Start: 03-01-2022 Encounter for genera l adult medical examination without abnormal findings Urban Max [facility] Start: 03-01-2022 Periodic preventive med est patient 18-39 yrs Urban Max [facility] Start: 02-13-2022 End: 02-13-2022 ambulatory Georgie Disla Other [facility] Other Start: 09-21-2022 Nursing evaluation o f patient and report Georgie Disla [facility] Start: 02-11-2022 End: 02-11-2022 ambulatory Georgie Disla Other [facility] Other Start: 02-11-2022 Nursing evaluation o f patient and report Georgie Disla [facility] Start: 01-18-2022 End: 01-18-2022 ambulatory Urban Max Other [facility] Other Start: 01-18-2022 Office outpatient visit 15 minutes Urban Max [facility] Start: 01-12-2022 End: 01-12-2022 ambulatory Georgie Disla Other [facility] Other Start: 01-12-2022 Nursing evaluation o f patient and report Georgie Disla [facility] Start: 01-07-2022 End: 01-07-2022 ambulatory Asim Garber Facility:[facility] Start: 03-05-2021 Encounter for genera l adult medical examination without abnormal findings Urban Max [facility] Start: 03-05-2021 Periodic preventive med est patient 18-39 yrs Urban Max [facility] Start: 12-16-2020 End: 12-16-[address] DOCTOR RAMIREZ Facility:[facility] Procedures Date Procedure Procedure Detail Performing Clinician Start: 07-08-2023 Urnls dip stick/tabl et rgnt non-auto w/o micrscp Arpita GARDNER Work Phone: Start: 08-07-2022 Piperacillin/tazobactam Urban Max Other Plan of Treatment Date Care Activity Detail Author Start: 01-24-2023 Influenza vaccination Influenza Vacc ine (#1) [facility] Immunizations Immunization Date Immunization Notes Care Provider [place] 02-27-2021 influenza, seasonal, injectable Urban Max Other [facility] Other 02-29-2020 influenza, injectable, quadrivalent, contains preservative Urban Max Other [facility] Other 02-29-2020 influenza virus vaccine, unspecified formulation Arpita GARDNER Work Phone: [facility] 02-07-2020 influenza, injectable, quadrivalent, contains preservative Patient Objection Urban Max Other [facility] Other NEGATED: Highlighted row has not occurred!02-07-2020 influenza, injectable, quadrivalent, contains preservative Patient Objection Georgie Disla Other [facility] Other Payers Date Payer Category Payer Medicaid [facility] [employer] [place] [id number] 2023-Present [address] [place] [address] [id number] 2022 Medicaid [id number] [address] [employer] [id number] 2022-Present [address] [place] [address] [id number] 2022 Unknown [id number] 2021 Self-pay 1994 Unknown [id number] 1994 Unknown [id number] 1994 Unknown [id number] 1994 Unknown [id number] 1994 Unknown [id number] 1994 Unknown [id number] 1959 Unknown [id number] Unknown [id number] Unknown [id number] Social History Date Type Detail Facility Unknown if ever smoked [facility] Other Start: 12-03-2022 Sex Assigned At N [facility] Other Start: 12-01-2022 Tobacco smoking status ARIS Never smoked tobacco [facility] Start: 07-08-2023 Alcohol intake Current drinke r of alcohol (finding) [facility] Start: 12-03-2022 History of Social function [facility] Start: 12-01-2022 Alcohol Comment occasional [facility] Start: 11-22-2022 [facility] Start: 1995 Sex Assigned At Not on file N [facility] Clinical Notes 03-05-2021 to 07-08-2023 KENDRA Palencia - 07/08/2023 1:30 PM EST Note Date & Type Note Facility 07-08-2023 History of Presen t illness Narrative Reason for Appointment: Patient ID: Jarvis Macedo is a 28 y.o. female who presents for Routine Visit Patient presents today for Return OB appointment. Current Medications: has a current medication list which includes the following prescription(s): citalopram, iron polysaccharides, magnesium oxide, omeprazole, vitamin, and terconazole. 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 Resolved Ambulatory Problems Diagnosis Date Noted No Resolved Ambulatory Problems Past Medical History: Diagnosis Date Abnormal uterine bleeding (AUB) Chronic tonsillitis Depression screening Encounter for female family planning counseling Nonspecific abnormal results of liver function study Obesity (BMI 30-39.9) Well woman exam with routine gynecological exam Family History Problem Relation Name Age of Onset Hypertension Maternal Grandmother Hyperlipidemia Maternal Grandmother Cancer Maternal Grandfather Hypertension Paternal Grandmother Hyperlipidemia Paternal Grandmother Heart disease Paternal Grandmother Cancer Paternal Grandfather Asthma Other migrated family history Coronary artery disease Other migrated family history Stroke Other migrated family history Cancer Other migrated family history Diabetes Other migrated family history Hypertension Other migrated family history Social History Tobacco Use Smoking status: Never Smokeless tobacco: Not on file Substance Use Topics Alcohol use: Yes Comment: occasional Drug use: Never Past Surgical History: Procedure Laterality Date SECTION, LOW TRANSVERSE 08/2009 SECTION, LOW TRANSVERSE 2017 PAP SMEAR 12/14/2019 negative TONSILLECTOMY 05/12/2012 Chronic Tonsillitis No Known Allergies Review of Systems: Review of Systems Constitutional: Negative. HENT: Negative. Eyes: Negative. Respiratory: Negative. Cardiovascular: Negative. Gastrointestinal: Negative. Genitourinary: Negative. Musculoskeletal: Negative. Skin: Negative. Neurological: Negative. All other systems reviewed and are negative. Hematological: Negative. Endocrine: Negative. Allergic/Immunologic: Negative. Objective Physical Exam Constitutional: Appearance: Normal appearance. She is normal weight. HENT: Head: Normocephalic. Cardiovascular: Rate and Rhythm: Normal rate. Pulses: Normal pulses. Pulmonary: Effort: Pulmonary effort is normal. Breath sounds: Normal breath sounds. Abdominal: Palpations: Abdomen is soft. Musculoskeletal: General: Normal range of motion. Neurological: General: No focal deficit present. Mental Status: She is alert and oriented to person, place, and time. Psychiatric: Mood and Affect: Mood normal. Behavior: Behavior normal. Thought Content: Thought content normal. Judgment: Judgment normal. Vitals and nursing note reviewed. Vitals: Estimated body mass index is 38.51 kg/m as calculated from the following: Height as of 11/18/22: 5' 8.5 . Weight as of this encounter: 257 lb. BP: 112/70 Patient's last menstrual period was 11/08/2022 (exact date). Assessment/Plan Encounter Diagnosis Name Primary? Third trimester Patient presents today for a routine obstetrics appointment. Patient is currently 34w4d with a Estimated Date of Delivery: 08/15/23. Patient presents today for a routine obstetrics appointment. Patient is currently 34w4d . Patient states she is doing well but has complaints of being tired due to current . Patient has verbalizes frequent movement. labor precautions was discussed/given and patient was instructed to perform kick counts three times a day. Follow Up: Patient is to return to office in 2 week for routine OB appointment. Documented by KENDRA Palencia on behalf of: KENDRA Palencia documented in this encounter [facility] 08-21-2022 Evaluation note Encounter Date Diagnosis Assessment Notes Jul, Acute non-recurrent frontal sinusitis (ICD-10 - J01.10) [facility] Other 03-14-2023 Evaluation note* Encounter Date Diagnosis Assessment Notes Treatment Notes Treatment Clinical Notes Jul, Dysuria (ICD-10 - R30.0) [facility] Other 11-01-2022 Evaluation note* Encounter Date Diagnosis Assessment Notes Treatment Notes Treatment Clinical Notes Mar, Anxiety (ICD-10 - F41.9) [facility] Other 10-07-2022 Evaluation note* Encounter Date Diagnosis Assessment Notes Treatment Notes Treatment Clinical Notes Feb, Encntr for general adult medical exam w/o abnormal findings (ICD-10 - Z00.00) Feb, Other No change today...Continue as is...FU 6 months.... [facility] Other 09-21-2022 Evaluation note* Encounter Date Diagnosis Assessment Notes Treatment Notes Treatment Clinical Notes Jan, Contact with and (suspected) exposure to other viral communicable diseases (ICD-10 - Z20.828) [facility] Other 09-19-2022 Evaluation note* Encounter Date Diagnosis Assessment Notes Treatment Notes Treatment Clinical Notes Jan, Contact with and (suspected) exposure to other viral communicable diseases (ICD-10 - Z20.828) [facility] Other 08-26-2022 Evaluation note* Encounter Date Diagnosis Assessment Notes Treatment Notes Treatment Clinical Notes Dec, Anxiety (ICD-10 - F41.9) E Rx sent. Lengthy discussion with patient that I think we need to try something than just a straight SSRI. We will see patient back in review. We talked about potential side effects as well as outcomes. She will call with any concerns. [facility] Other 08-20-2022 Evaluation note* Encounter Date Diagnosis Assessment Notes Treatment Notes Treatment Clinical Notes Dec, Contact with and (suspected) exposure to other viral communicable diseases (ICD-10 - Z20.828) [facility] Other 10-11-2021 Evaluation note* Encounter Date Diagnosis Assessment Notes Treatment Notes Treatment Clinical Notes Feb, Encntr for general adult medical exam w/o abnormal findings (ICD-10 - Z00.00) Feb, Other No change today...Continue as is...FU PRN/Yearly... [facility] Other Evaluation noteNo [facility] Other Evaluation note* Diagnosis Third trimester state, incidental documented in this [facility] - Reported* Type Description Date Medical History Hx of MRSA Medical History anxiety Surgical History tonsillectomy and adenoidectomy 2012 Surgical History c-sections 2009 and 2016 Hospitalization History C Sections [facility] Other Summary Purpose Family History No Family History Records FoundNo Family History Records FoundNo Family History Records Found Advance Directives No Advanced Directives Records FoundNo Advanced Directives Records FoundNo Advanced Directives Records Found Additional Source Comments INFORMATION SOURCE (unrecogn ized section and content) DATE CREATED AUTHOR 12/19/2020 Neha rick DATE CREATED AUTHOR AUTHOR'S ORGANIZ ATION 08/09/2022 [facility] DATE CREATED AUTHOR AUTHOR'S ORGANIZ ATION 07/10/2023 [facility] EPIC REASON FOR VISIT (unrecogniz ed section and content) Reason Comments Routine Visit Care Teams (unrecognized sec tion and content) Stick Roller Relationship Specialty Start Date End Date Urban Santana MD [address] [place] [phone] PCP - General Family Medicine 11/18/22 FOR RECORDS PERTAINING TO PATIENTS WHO ARE [...] BE BASED ON THE PRIMARY CLINICAL RECORDS. [facility] [employer] [facility]. provides no warranty or guarantee of the accuracy or completeness of information in this document.
[2023-07-10 16:06] VITALS: BP 128/77; PULSE 87
== END 2023-07-10 16:40 | disposition home or self-care (01) ==
LOC: FBCO 08:01 → FBC 16:01
PROVIDERS: PCP Family Medicine; Visit Provider Obstetrics & Gynecology
DX: O36.63X1 Maternal care for excessive fetal growth, third trimester, fetus 1 (principal)
CPT/HCPCS: 59025

== ENCOUNTER 2023-07-14 07:35 | Outpatient (OUT) | payer BC, OTHER, SELFPAY ==
--- NOTE | 2023-07-14 | US_ITS ---
[address] [address] Patient Name: JARVIS MACEDO MRN: [id number] date: 1995 Sex: F Assigned Patient Location: US Current Patient Location: US Accession/Order Number: [id number] Exam Date: 07/14/2023 17:07 Report Date: 07/15/2023 08:13 At the request of: TALITA LEARY Procedure: US OB BPP w non-stress EXAMINATION: US OB BPP w non-stress HISTORY: EXCESSIVE GROWTH IN THIRD TRIMESTER O36.63X0 COMPARISON: Ultrasound OB biophysical 12/05/2023 TECHNIQUE: Ultrasound biophysical profile was performed in the radiology department. BREATHING MOVEMENTS: 2.0 GROSS BODY MOVEMENTS: 2.0 TONE: 2.0 QUALITATIVE AMNIOTIC FLUID VOLUME: 2.0 PRESENTATION: CEPHALIC HEART RATE: 163.6 bpm bpm. AMNIOTIC FLUID VOLUME: 8.4 cm GESTATIONAL AGE: 35 weeks 3 days CONCLUSION: 1. Total biophysical profile score 8.0. 2. Amniotic fluid volume is approaching the lower limits of normal; 8.4 cm on today's study (7.9 cm is the 5th percentile). Electronically authenticated by: SELENA ZUÑIGA Date: 07/15/2023 08:13
--- OUTSIDE RECORDS SUMMARY | 2023-07-14 07:46 | XMS_ITS | CCD ---
Author Name Unknown Address [facility] [employer] [facility] [address] [place] [id number] Organization [facility] Care Team Providers Care Drill Sharpener Name Role Phone TARYN, DR GA Primary Care Unavailable MAGUE, DR MAUDE Pathak Admitting Unavailabl e MAGUE, DR MAUDE Pathak Consulting Unavailabl e MAGUE, DR MAUDE Pathak Attending UnavailJackie Morrow Unavailable Urban Santana Unavailable Georgie Disla Unavailable Asim Garber Admitting Unavailable Asim Garber Attending Unavailable Urban Santana Primary Care Unavailable Urban Santana Attending Unavailable Urban Santana Admitting Unavailable Urban Santana Primary Care Unavailable Dontrell Gallegos Unavailable Susanne Huitron Unavailable Urban Santana MD Primary Care Provider [phone] ARPITA GUSMAN Attending Unavailable ARPITA GUSMAN Attending [...] UA Negative Negative - 4(70) +++ mg/dL [facility] Blood, UA Negative Negative - 50 Rodriguez/mcL [facility] Clarity, UA Clear [facility] Healthca re Color, UA Yellow [facility] Healthcar e Glucose, UA Negative Negative - 2000(110) ++++ mg/dL [facility] Interpretation and review of laboratory results Abnormal [facility] Ketones, UA Negative Negative - 160(16) ++++ mg/dL [facility] Leukocytes, UA Positive Negative - 500+++ Dg/mcL [facility] Nitrite, UA Negative Negative - Positive [facility] pH, UA 5.5 5 - 9 [facility] Healthcar e Protein, UA Negative Negative - 1999(20) ++++ mg/dL [facility] Spec Grav, UA 1.015 1 - 1.03 [facility] Urobilinogen, UA 1.0 0.2 - 12 mg/dL [facility] Healthcar e Urine Cultureon 08-07-2022 Urine Culture >100,000 [facility] Other Urine Culture <16 Susceptible [facility] Other Urine Culture <8/4 Susceptible [facility] Other Urine Culture >16 Resistant [facility] Other Urine Culture <4 Susceptible [employer] Other Urine Culture <2 Susceptible [employer] Other Urine Culture <1 Susceptible [facility] Other Urine Culture <0.25 Susceptible [facility] Other Urine Culture <0.5 Susceptible [facility] Other Urine Culture >8 Resistant [facility] Other Urine Culture <32 Susceptible [facility] Other Urine Culture 4 Susceptible [employer] Other Urine Culture >2/38 Resistant [facility] Other Bacteria identified Cx Nom (U) Reason for Exam Dysuria Urine Reason for Exam: Dysuria : Urine ORGANISM: Escherichia coli (O:ESCCOL) [place] Count >100,000 Aerobic REMY Charge (NMIC56) ------ [...] RESISTANT TO ALL B-LACTAM DRUGS. PERFORMED BY: [place] [address] PATHOLOGIST FITNESS CONSULTANT ROBERT WEBB M.D. [facility] Comment on above: Performed By: #### C UU #### [address] SARS-CoV-2 (COVID-19) RNA NA A+probe Ql (Resp)on 02-13-2022 SARS-CoV-2 (COVID-19) RNA CLAY+probe Ql (Unsp spec) Positive [facility] Other SARS-CoV-2 (COVID-19) RNA NA A+probe Ql (Resp)on 02-11-2022 SARS-CoV-2 (COVID-19) RNA CLAY+probe Ql (Unsp spec) Negative [facility] Other SARS-CoV-2 (COVID-19) RNA NA A+probe Ql (Resp)on 01-12-2022 SARS-CoV-2 (COVID-19) RNA CLAY+probe Ql (Unsp spec) Negative [facility] Other Employee Comp Metabolic Kokoe jakob 01-07-2022 Albumin [Mass/Vol] 4.0 g/dL Normal 3.2-5.5 [facility] Comment on above: Performed By: #### P ILLAR LIPID, PILLAR TSH, PILLAR CBC, PILLAR CMP #### [facility] [address] [place] [address] [place] #### NICOTINE QUAL #### [facility] , Albumin/Globulin [Mass ratio] 1.4 {ratio} Normal [facility] Comment on above: Performed By: #### P ILLAR LIPID, PILLAR TSH, PILLAR CBC, PILLAR CMP #### [facility] [address] [place] [address] #### NICOTINE QUAL #### [facility] , ALP [Catalytic activity/Vol] 72 U/L Normal 32-92 [facility] Comment on above: Performed By: #### P ILLAR LIPID, PILLAR TSH, PILLAR CBC, PILLAR CMP #### [facility] [address] [place] [address] [place] #### NICOTINE QUAL #### [facility] , ALT [Catalytic activity/Vol] 20 U/L Normal 10-60 [facility] Comment on above: Performed By: #### P ILLAR LIPID, PILLAR TSH, PILLAR CBC, PILLAR CMP #### [facility] [address] [place] [address] [place] #### NICOTINE QUAL #### [facility] , AST [Catalytic activity/Vol] 23 U/L Normal 10-42 [facility] Comment on above: Performed By: #### P ILLAR LIPID, PILLAR TSH, PILLAR CBC, PILLAR CMP #### [facility] [address] [place] [address] [place] #### NICOTINE QUAL #### [facility] , Bilirubin [Mass/Vol] 0.4 mg/dL Normal 0.3-1.2 [facility] Comment on above: Performed By: #### P ILLAR LIPID, PILLAR TSH, PILLAR CBC, PILLAR CMP #### [facility] [address] [place] [address] [place] #### NICOTINE QUAL #### [facility] , Calcium [Mass/Vol] 9.6 mg/dL Normal 8.2-10.2 [facility] Comment on above: Performed By: #### P ILLAR LIPID, PILLAR TSH, PILLAR CBC, PILLAR CMP #### [facility] [address] [place] [address] [place] #### NICOTINE QUAL #### [facility] , Chloride [Moles/Vol] 101 mmol/L Normal 95-114 [facility] Comment on above: Performed By: #### P ILLAR LIPID, PILLAR TSH, PILLAR CBC, PILLAR CMP #### [facility] [address] [place] [address] [place] #### NICOTINE QUAL #### [facility] , CO2 [Moles/Vol] 24.9 mmol/L Normal 22.0-30.0 [facility] Comment on above: Performed By: #### P ILLAR LIPID, PILLAR TSH, PILLAR CBC, PILLAR CMP #### [facility] [address] [place] [address] [place] #### NICOTINE QUAL #### [facility] , Creatinine [Mass/Vol] 0.72 mg/dL Normal 0.44-1.03 [facility] Comment on above: Performed By: #### P ILLAR LIPID, PILLAR TSH, PILLAR CBC, PILLAR CMP #### [facility] [address] [place] [address] [place] #### NICOTINE QUAL #### [facility] , Estimated GFR ( Katelin > 60 Normal [facility] Comment on above: Result Comment: GFR estimated reference range: According to KDOQI guidelines, <60 ml/min/1.73m2 is sufficient to diagnose a patient with chronic kidney disease. Performed By: #### P ILLAR LIPID, PILLAR TSH, PILLAR CBC, PILLAR CMP #### [facility] [address] [place] [address] [place] #### NICOTINE QUAL #### [facility] , Estimated GFR (Non- Am > 60 Normal [facility] Comment on above: Performed By: #### P ILLAR LIPID, PILLAR TSH, PILLAR CBC, PILLAR CMP #### [place] [address] [place] #### NICOTINE QUAL #### [facility] , Globulin (S) [Mass/Vol] 2.8 g/dL Normal [facility] Comment on above: Performed By: #### P ILLAR LIPID, PILLAR TSH, PILLAR CBC, PILLAR CMP #### [place] [address] [place] #### NICOTINE QUAL #### [facility] , Glucose [Mass/Vol] 91 mg/dL Normal 70-100 [facility] Comment on above: Performed By: #### P ILLAR LIPID, PILLAR TSH, PILLAR CBC, PILLAR CMP #### [place] [address] [place] #### NICOTINE QUAL #### [facility] , Potassium [Moles/Vol] 4.3 mmol/L Normal 3.5-5.1 [facility] Comment on above: Performed By: #### P ILLAR LIPID, PILLAR TSH, PILLAR CBC, PILLAR CMP #### [facility] [address] [place] [address] [place] #### NICOTINE QUAL #### [facility] , Protein [Mass/Vol] 6.8 g/dL Normal 6.1-7.9 [facility] Comment on above: Performed By: #### P ILLAR LIPID, PILLAR TSH, PILLAR CBC, PILLAR CMP #### [place] [address] [place] #### NICOTINE QUAL #### [facility] , Sodium [Moles/Vol] 134 mmol/L Low 136-146 [facility] Comment on above: Performed By: #### P ILLAR LIPID, PILLAR TSH, PILLAR CBC, PILLAR CMP #### [facility] [address] [place] [address] #### NICOTINE QUAL #### [facility] , Urea nitrogen [Mass/Vol] 10 mg/dL Normal 9-23 [facility] Comment on above: Performed By: #### P ILLAR LIPID, PILLAR TSH, PILLAR CBC, PILLAR CMP #### [facility] [address] [place] [address] #### NICOTINE QUAL #### [facility] , Employee Complete Blood Coun ton 01-07-2022 Basophils (Bld) [#/Vol] 0.0 10*3/uL Normal 0.0-0.2 [facility] Comment on above: Result Comment: PERF ORMED BY: [place] [address] PATHOLOGIST FITNESS CONSULTANT ROBERT WEBB M.D. Performed By: #### P ILLAR LIPID, PILLAR TSH, PILLAR CBC, PILLAR CMP #### [address] #### NICOTINE QUAL #### [facility] , Basophils/100 WBC (Bld) 0.5 % Normal . [facility] Comment on above: Performed By: #### P ILLAR LIPID, PILLAR TSH, PILLAR CBC, PILLAR CMP #### [facility] [address] [place] [address] [place] #### NICOTINE QUAL #### [facility] , Eosinophils (Bld) [#/Vol] 0.1 10*3/uL Normal 0.0-0.45 [facility] Comment on above: Performed By: #### P ILLAR LIPID, PILLAR TSH, PILLAR CBC, PILLAR CMP #### [place] [address] [place] #### NICOTINE QUAL #### [facility] , Eosinophils/100 WBC (Bld) 1.2 % Normal . [facility] Comment on above: Performed By: #### P ILLAR LIPID, PILLAR TSH, PILLAR CBC, PILLAR CMP #### [facility] [address] [place] [address] [place] #### NICOTINE QUAL #### [facility] , Erythrocyte distribution width (RBC) [Ratio] 16.0 % High 11.9-15.3 [facility] Comment on above: Performed By: #### P ILLAR LIPID, PILLAR TSH, PILLAR CBC, PILLAR CMP #### [address] #### NICOTINE QUAL #### [facility] , Hematocrit (Bld) [Volume fraction] 38.7 % Normal 34.0-46.4 [facility] Comment on above: Performed By: #### P ILLAR LIPID, PILLAR TSH, PILLAR CBC, PILLAR CMP #### [facility] [address] [place] [address] [place] #### NICOTINE QUAL #### [facility] , Hemoglobin (Bld) [Mass/Vol] 12.7 g/dL Normal 11.8-15.4 [facility] Comment on above: Performed By: #### P ILLAR LIPID, PILLAR TSH, PILLAR CBC, PILLAR CMP #### [place] [address] [place] #### NICOTINE QUAL #### [facility] , Lymphocytes (Bld) [#/Vol] 2.8 10*3/uL Normal 1.00-4.8 [facility] Comment on above: Performed By: #### P ILLAR LIPID, PILLAR TSH, PILLAR CBC, PILLAR CMP #### [facility] [address] [place] [address] [place] #### NICOTINE QUAL #### [facility] , Lymphocytes/100 WBC (Bld) 40.3 % Normal . [facility] Comment on above: Performed By: #### P ILLAR LIPID, PILLAR TSH, PILLAR CBC, PILLAR CMP #### [facility] [address] [place] [address] #### NICOTINE QUAL #### [facility] , MCH (RBC) [Entitic mass] 27.5 pg Normal 24.7-34.3 [facility] Comment on above: Performed By: #### P ILLAR LIPID, PILLAR TSH, PILLAR CBC, PILLAR CMP #### [facility] [address] [place] [address] #### NICOTINE QUAL #### [facility] , MCV (RBC) [Entitic vol] 84.2 fL Normal 80-100 [facility] Comment on above: Performed By: #### P ILLAR LIPID, PILLAR TSH, PILLAR CBC, PILLAR CMP #### [address] #### NICOTINE QUAL #### [facility] , Mean Corpuscular HGB Conc 32.7 g/dL Normal 32.0-35.0 [facility] Comment on above: Performed By: #### P ILLAR LIPID, PILLAR TSH, PILLAR CBC, PILLAR CMP #### [facility] [address] [place] [address] [place] #### NICOTINE QUAL #### [facility] , Monocytes (Bld) [#/Vol] 0.3 10*3/uL Normal 0.0-0.8 [facility] Comment on above: Performed By: #### P ILLAR LIPID, PILLAR TSH, PILLAR CBC, PILLAR CMP #### [facility] [address] [place] [address] #### NICOTINE QUAL #### [facility] , Monocytes/100 WBC (Bld) 5.0 % Normal . [facility] Comment on above: Performed By: #### P ILLAR LIPID, PILLAR TSH, PILLAR CBC, PILLAR CMP #### [facility] [address] [place] [address] [place] #### NICOTINE QUAL #### [facility] , Neutrophils (Bld) [#/Vol] 3.7 10*3/uL Normal 1.8-7.7 [facility] Comment on above: Performed By: #### P ILLAR LIPID, PILLAR TSH, PILLAR CBC, PILLAR CMP #### [facility] [address] [place] [address] #### NICOTINE QUAL #### [facility] , Neutrophils/100 WBC (Bld) 53.0 % Normal . [facility] Comment on above: Performed By: #### P ILLAR LIPID, PILLAR TSH, PILLAR CBC, PILLAR CMP #### [facility] [address] [place] [address] [place] #### NICOTINE QUAL #### [facility] , Nucleated RBC/100 WBC (Bld) [Ratio] 0.1 % Normal 0-0.5 [facility] Comment on above: Performed By: #### P ILLAR LIPID, PILLAR TSH, PILLAR CBC, PILLAR CMP #### [facility] [address] [place] [address] #### NICOTINE QUAL #### [facility] , Platelet mean volume (Bld) [Entitic vol] 7.8 fL Normal 6.3-10.7 [facility] Comment on above: Performed By: #### P ILLAR LIPID, PILLAR TSH, PILLAR CBC, PILLAR CMP #### [facility] [address] [place] [address] [place] #### NICOTINE QUAL #### [facility] , Platelets (Bld) [#/Vol] 297 10*3/uL Normal 150-450 [facility] Comment on above: Performed By: #### P ILLAR LIPID, PILLAR TSH, PILLAR CBC, PILLAR CMP #### [place] [address] [place] #### NICOTINE QUAL #### [facility] , RBC (Bld) [#/Vol] 4.60 10*6/uL Normal 3.60-5.00 [facility] Comment on above: Performed By: #### P ILLAR LIPID, PILLAR TSH, PILLAR CBC, PILLAR CMP #### [place] [address] [place] #### NICOTINE QUAL #### [facility] , WBC (Bld) [#/Vol] 6.9 10*3/uL Normal 4.5-11.0 [facility] Comment on above: Performed By: #### P ILLAR LIPID, PILLAR TSH, PILLAR CBC, PILLAR CMP #### [address] #### NICOTINE QUAL #### [facility] , Employee Lipid Profileon Cholesterol [Mass/Vol] 163 mg/dL Normal 140-200 [facility] Comment on above: Result Comment: Chol less than 200 mg/dl low risk Chol 201-239 mg/dl borderline risk Chol 240 mg/dl and greater high risk Performed By: #### P ILLAR LIPID, PILLAR TSH, PILLAR CBC, PILLAR CMP #### [place] [address] [place] #### NICOTINE QUAL #### [facility] , Cholesterol in HDL [Mass/Vol] 57 mg/dL Normal 35-85 [facility] Comment on above: Result Comment: HDL CHOL ATP-III CLASSIFICATION Cardiovascular Risk HDL > or equal to 60 mg/dL LOW HDL < 40 mg/dL HIGH Performed By: #### P ILLAR LIPID, PILLAR TSH, PILLAR CBC, PILLAR CMP #### [place] [address] [place] #### NICOTINE QUAL #### [facility] , Cholesterol.total/Ch olesterol in HDL [Mass ratio] 2.9 {ratio} Normal <5.0 [facility] Comment on above: Performed By: #### P ILLAR LIPID, PILLAR TSH, PILLAR CBC, PILLAR CMP #### [facility] [address] [place] [address] #### NICOTINE QUAL #### [facility] , LDL Cholesterol,Calculat ed 99 mg/dL Normal 0-100 [facility] Comment on above: Result Comment: LDL ATP III CLASSIFICATION LDL less than 100 mg/dL Optimal LDL 100-129 mg/dL Near or above optimal LDL 130-159 mg/dL Borderline high LDL 160-189 mg/dL High LDL greater than 189 mg/dL Very high Performed By: #### P ILLAR LIPID, PILLAR TSH, PILLAR CBC, PILLAR CMP #### [address] #### NICOTINE QUAL #### [facility] , Triglyceride w/Reflex 34 mg/dL Low 35-149 [facility] Comment on above: Result Comment: TRIG ATP III CLASSIFICATION TRIG less than 150 mg/dL Normal TRIG 150-199 mg/dL Borderline high TRIG 200-500 mg/dL High TRIG greater than 500 mg/dL Very high Standard traceable to the Center for Disease Conrtrol and Prevention (CDC) test method. Performed By: #### P ILLAR LIPID, PILLAR TSH, PILLAR CBC, PILLAR CMP #### [place] [address] [place] #### NICOTINE QUAL #### [facility] , VLDL CHOLESTEROL 6 mg/dL Normal [facility] Comment on above: Performed By: #### P ILLAR LIPID, PILLAR TSH, PILLAR CBC, PILLAR CMP #### [facility] [address] [place] [address] [place] #### NICOTINE QUAL #### [facility] , Employee Thyroid Stim Hormon jason 01-07-2022 Employee Thyroid Stim Hormone 2.14 u[iU]/mL Normal 0.45-5.33 [facility] Comment on above: Result Comment: PERF ORMED BY: [place] [address] PATHOLOGIST FITNESS CONSULTANT ROBERT WEBB M.D. Performed By: #### P ILLAR LIPID, PILLAR TSH, PILLAR CBC, PILLAR CMP #### [address] #### NICOTINE QUAL #### [facility] , Nicotine Metabolite, [place] 01-07-2022 Nicotine Metabolite Negative Normal Cutoff=25 [facility] Comment on above: Result Comment: Perf ormed at: - [facility] [address] [id number] Magistrate Judge: Josh Ortez MD, Phone: [phone] PERFORMED BY: [place] [address] PATHOLOGIST FITNESS CONSULTANT ROBERT WEBB M.D. Performed By: #### P ILLAR LIPID, PILLAR TSH, PILLAR CBC, PILLAR CMP #### [address] #### NICOTINE QUAL #### [facility] , [...] by: JACKIE WILLETT Date: 2020-12-16 14:53 Normal [facility] Vital Signs Date Time Vital Sign Value Performing Clinician Facility 07-08-2023 13:27-0500 Body mass index (BMI) [Ratio] 38.51 kg/m2 Arpita GARDNER Work Phone: [facility] 07-08-2023 13:27-0500 Body weight 116.57 kg Arpita Gusman KENDRA Work Phone: [facility] 07-08-2023 13:27-0500 Diastolic blood pressure 70 mm[Hg] Arpita Gusman KENDRA Work Phone: [facility] 07-08-2023 13:27-0500 Systolic blood pressure 112 mm[Hg] Arpita Gusman KENDRA Work Phone: [facility] 03-01-2022 09:00-0400 Body height 175.26 cm Urban Max Other [facility] Other 03-01-2022 09:00-0400 Body mass index (BMI) [Ratio] 33.81 kg/m2 Urban Max Other [facility] Other 03-01-2022 09:00-0400 Body temperature 97.9 [degF] Urban Max Other [facility] Other 03-01-2022 09:00-0400 Body weight 103.87 kg Urban Max Other [facility] Other 03-01-2022 09:00-0400 Diastolic blood pressure 80 mm[Hg] Urban Max Other [facility] Other 03-01-2022 09:00-0400 Respiratory rate 20 /min Urban [facility] Other [facility] Other 03-01-2022 09:00-0400 SaO2% (BldA) [Mass fraction] 97 % Urban Max Other [facility] Other 03-01-2022 09:00-0400 Systolic blood pressure 118 mm[Hg] Urban Max Other [facility] Other 01-18-2022 09:45-0400 Body height 175.26 cm Urban Max Other [facility] Other 01-18-2022 09:45-0400 Body mass index (BMI) [Ratio] 32.93 kg/m2 Urban Max Other [facility] Other 01-18-2022 09:45-0400 Body temperature 97.3 [degF] Urban Max Other [facility] Other 01-18-2022 09:45-0400 Body weight 101.15 kg Urban Max Other [facility] Other 01-18-2022 09:45-0400 Diastolic blood pressure 72 mm[Hg] Urban Max Other [facility] Other 01-18-2022 09:45-0400 Respiratory rate 20 /min Urban Max Other [facility] Other 01-18-2022 09:45-0400 SaO2% (BldA) [Mass fraction] 98 % Urban Max Other [facility] Other 01-18-2022 09:45-0400 Systolic blood pressure 112 mm[Hg] Urban Max Other [facility] Other 03-05-2021 16:15-0400 Body height 175.26 cm Urban Max Other [facility] Other 03-05-2021 16:15-0400 Body mass index (BMI) [Ratio] 35.14 kg/m2 Urban Max Other [facility] Other 03-05-2021 16:15-0400 Body weight 107.96 kg Urban Max Other [facility] Other 03-05-2021 16:15-0400 Diastolic blood pressure 68 mm[Hg] Urban Max Other [facility] Other 03-05-2021 16:15-0400 Respiratory rate 20 /min Urban Max Other [facility] Other 03-05-2021 16:15-0400 SaO2% (BldA) [Mass fraction] 98 % Urban Max Other [facility] Other 03-05-2021 16:15-0400 Systolic blood pressure 110 mm[Hg] Urban Max Other [facility] Other Encounters Encounter Date Encounter Type Care [...] 09-10-2022 End: 09-10-2022 ambulatory Susanne Huitron Other [facility] Other Start: 09-10-2022 Telephone encounter Susanne Soraidarachel Perez [facility] Start: 08-21-2022 End: 08-21-2022 ambulatory Dontrell Gallegos Other [facility] Other Start: 08-21-2022 Telephone encounter Dontrell Perez [facility] Start: 08-09-2022 End: 08-09-2022 ambulatory Urban Max Other [facility] Other Start: 08-09-2022 Telephone encounter Urban Max [facility] Start: 08-07-2022 End: 08-07-2022 ambulatory Urban M. Max Facility:[facility] Start: 08-06-2022 End: 08-06-2022 ambulatory Urban Max Other [facility] Other Start: 08-06-2022 Telephone encounter Urban Max [facility] Start: 03-26-2022 End: 03-26-2022 ambulatory Urban Max Other [facility] Other Start: 03-26-2022 Telephone encounter Urban Max [facility] Start: 03-01-2022 End: 03-01-2022 ambulatory Urban Max Other [facility] Other Start: 03-01-2022 Encounter for genera l adult medical examination without abnormal findings Urban Max [facility] Start: 03-01-2022 Periodic preventive med est patient 18-39 yrs Urban Max [facility] Start: 02-13-2022 End: 02-13-2022 ambulatory Georgie Disla Other [facility] Other Start: 09-21-2022 Nursing evaluation o f patient and report Georgie Disla [facility] Start: 02-11-2022 End: 02-11-2022 ambulatory Georgie Disla Other [facility] Other Start: 02-11-2022 Nursing evaluation o f patient and report Georgie Disla [facility] Start: 01-18-2022 End: 01-18-2022 ambulatory Urban Max Other [facility] Other Start: 01-18-2022 Office outpatient visit 15 minutes Urban Max [facility] Start: 01-12-2022 End: 01-12-2022 ambulatory Georgie Disla Other [facility] Other Start: 01-12-2022 Nursing evaluation o f patient and report Georgie Disla [facility] Start: 01-07-2022 End: 01-07-2022 ambulatory Asim Garber Facility:[facility] Start: 03-05-2021 Encounter for genera l adult medical examination without abnormal findings Urban Max [facility] Start: 03-05-2021 Periodic preventive med est patient 18-39 yrs Urban Max [facility] Start: 12-16-2020 End: 12-16-[address] DOCTOR [...] 02-27-2021 influenza, seasonal, injectable Urban Max Other [facility] Other 02-29-2020 influenza, injectable, quadrivalent, contains preservative Urban Max Other [facility] Other 02-29-2020 influenza virus vaccine, unspecified formulation Arpita GARDNER Work Phone: [facility] 02-07-2020 influenza, injectable, quadrivalent, contains preservative Patient Objection Urban Max Other [facility] Other NEGATED: Highlighted row has not occurred!02-07-2020 influenza, injectable, quadrivalent, contains preservative Patient Objection Georgie Disla Other [facility] Other Payers Date Payer Category Payer Medicaid [facility] [employer] [place] [id number] 2023-Present [address] [place] [address] [id number] 2022 Medicaid [id number] [address] [employer]US [id number] 2022-Present [address] [place] [address] [id number] 2022 Unknown [id number] 2021 Self-pay 1994 Unknown [id number] 1994 Unknown [id number] 1994 Unknown [id number] 1994 Unknown [id number] 1994 Unknown [id number] 1994 Unknown [id number] 1959 Unknown [id number] Unknown [id number] Unknown [id number] Social History Date Type Detail Facility Unknown if ever smoked [facility] [address] Other Start: 12-03-2022 Sex Assigned At N [facility] [address] Other Start: 12-01-2022 Tobacco smoking status MTIS Never smoked tobacco [facility] Start: 07-08-2023 Alcohol intake Current drinke r of alcohol (finding) [facility] Start: 12-03-2022 History of Social function [facility] Start: 12-01-2022 Alcohol Comment occasional [facility] Start: 11-22-2022 [facility] Start: 1995 Sex Assigned At Not on file N [facility] Clinical Notes 03-05-2021 to 07-08-2023 KENDRA [...] of: KENDRA Palencia documented in this encounter [facility] 08-21-2022 Evaluation note Encounter Date Diagnosis Assessment Notes Jul, Acute non-recurrent frontal sinusitis (ICD-10 - J01.10) [facility] Other 03-14-2023 Evaluation note* Encounter Date Diagnosis Assessment Notes Treatment Notes Treatment Clinical Notes Jul, Dysuria (ICD-10 - R30.0) [facility] Other 11-01-2022 Evaluation note* Encounter Date Diagnosis Assessment Notes Treatment Notes Treatment Clinical Notes Mar, Anxiety (ICD-10 - F41.9) [facility] Other 10-07-2022 Evaluation note* Encounter Date Diagnosis Assessment Notes Treatment Notes Treatment Clinical Notes Feb, Encntr for general adult medical exam w/o abnormal findings (ICD-10 - Z00.00) Feb, Other No change today...Continue as is...FU 6 months.... [facility] Other 09-21-2022 Evaluation note* Encounter Date Diagnosis Assessment Notes Treatment Notes Treatment Clinical Notes Jan, Contact with and (suspected) exposure to other viral communicable diseases (ICD-10 - Z20.828) [facility] Other 09-19-2022 Evaluation note* Encounter Date Diagnosis Assessment Notes Treatment Notes Treatment Clinical Notes Jan, Contact with and (suspected) exposure to other viral communicable diseases (ICD-10 - Z20.828) [facility] Other 08-26-2022 Evaluation note* Encounter Date Diagnosis Assessment Notes Treatment Notes Treatment Clinical Notes Dec, Anxiety (ICD-10 - F41.9) E Rx sent. Lengthy discussion with patient that I think we need to try something than just a straight SSRI. We will see patient back in review. We talked about potential side effects as well as outcomes. She will call with any concerns. [facility] Other 08-20-2022 Evaluation note* Encounter Date Diagnosis Assessment Notes Treatment Notes Treatment Clinical Notes Dec, Contact with and (suspected) exposure to other viral communicable diseases (ICD-10 - Z20.828) [facility] Other 10-11-2021 Evaluation note* Encounter Date Diagnosis Assessment Notes Treatment Notes Treatment Clinical Notes Feb, Encntr for general adult medical exam w/o abnormal findings (ICD-10 - Z00.00) Feb, Other No change today...Continue as is...FU PRN/Yearly... [facility] Other Evaluation noteNo InformationNort Reeher Other Evaluation note* Diagnosis Third trimester state, incidental documented in this encounter [facility] N[facility] - Reported* Type Description Date Medical History Hx of MRSA Medical History anxiety Surgical History tonsillectomy and adenoidectomy 2012 Surgical History c-sections 2009 and 2016 Hospitalization History C Sections [facility] Other Summary Purpose Family History No Family History Records FoundNo Family History Records FoundNo Family History Records Found Advance Directives No Advanced Directives Records FoundNo Advanced Directives Records FoundNo Advanced Directives Records Found Additional Source Comments INFORMATION SOURCE (unrecogn ized section and content) DATE CREATED AUTHOR 12/19/2020 Neha rick DATE CREATED AUTHOR AUTHOR'S ORGANIZ ATION 08/09/2022 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 [facility] [employer] [facility]. provides no warranty or guarantee of the accuracy or completeness of information in this document.
[2023-07-14 17:56] VITALS: BP 130/64; PULSE 86
== END 2023-07-14 17:58 | disposition home or self-care (01) ==
LOC: US 07:43 → FBC 16:59
PROVIDERS: PCP Family Medicine; Visit Provider Obstetrics & Gynecology
DX: O36.63X0 Maternal care for excessive fetal growth, third trimester, not applicable or unspecified (principal); Z3A.35 35 weeks gestation of pregnancy
CPT/HCPCS: 76818

== ENCOUNTER 2023-07-17 07:25 | Outpatient (OUT) | payer BC, OTHER, SELFPAY ==
--- OUTSIDE RECORDS SUMMARY | 2023-07-17 07:28 | XMS_ITS | CCD ---
Author Name Unknown Address [facility] [employer] [facility] [address] [place] [id number] Organization [facility] Care Team Providers Care Central Supply Assistant Name Role Phone TARYN, DR GA Primary Care Unavailable MAGUE, DR MAUDE Patahk Admitting Unavailabl e MAGUE, DR MAUDE Pathak Consulting Unavailabl e MAGUE, DR MAUDE Pathak Attending UnavailJackie Morrow Unavailable Urban Santana Unavailable Georgie Disla Unavailable Asim Garber Admitting Unavailable Asim Garber Attending Unavailable Urban Santana Primary Care Unavailable Urban Santana Attending Unavailable Urban Santana Admitting Unavailable Urban Santana Primary Care Unavailable Dontrell Gallegos Unavailable Susanne Huitron Unavailable Urban Santana MD Primary Care Provider [phone] ARPITA GUSMAN Attending Unavailable ARPITA GUSMAN Attending [...] UA Negative Negative - 4(70) +++ mg/dL [facility] Blood, UA Negative Negative - 50 Rodriguez/mcL [facility] Clarity, UA Clear [facility] Color, UA Yellow [facility] Glucose, UA Negative Negative - 2000(110) ++++ mg/dL [facility] Interpretation and review of laboratory results Abnormal [facility] Ketones, UA Negative Negative - 160(16) ++++ mg/dL [facility] Leukocytes, UA Positive Negative - 500+++ Dg/mcL [facility] Nitrite, UA Negative Negative - Positive [facility] pH, UA 5.5 5 - 9 [facility] Protein, UA Negative Negative - 1999(20) ++++ mg/dL [facility] Spec Grav, UA 1.015 1 - 1.03 [facility] Urobilinogen, UA 1.0 0.2 - 12 mg/dL [facility] Urine Cultureon 08-07-2022 Urine Culture >100,000 [facility] Other Urine Culture <16 Susceptible [facility] Other Urine Culture <8/4 Susceptible [facility] Other Urine Culture >16 Resistant [facility] Other Urine Culture <4 Susceptible [facility] Other Urine Culture <2 Susceptible [facility] Other Urine Culture <1 Susceptible [facility] Other Urine Culture <0.25 Susceptible [facility] Other Urine Culture <0.5 Susceptible [facility] Other Urine Culture >8 Resistant [facility] Other Urine Culture <32 Susceptible [facility] Other Urine Culture 4 Susceptible [facility] Other Urine Culture >2/38 Resistant [facility] Other Bacteria identified Cx Nom (U) Reason for Exam Dysuria Urine Reason for Exam: Dysuria : Urine ORGANISM: Escherichia coli (O:ESCCOL) [place] Count >100,000 Aerobic REMY Charge (NMIC56) ------ [...] RESISTANT TO ALL B-LACTAM DRUGS. PERFORMED BY: [place] [address] PATHOLOGIST MARKETING REPORTING ANALYST ROBERT WEBB M.D. [facility] Comment on above: Performed By: #### C UU #### [address] SARS-CoV-2 (COVID-19) RNA NA A+probe Ql (Resp)on 02-13-2022 SARS-CoV-2 (COVID-19) RNA CLAY+probe Ql (Unsp spec) Positive [facility] Other SARS-CoV-2 (COVID-19) RNA NA A+probe Ql (Resp)on 02-11-2022 SARS-CoV-2 (COVID-19) RNA CLAY+probe Ql (Unsp spec) Negative [facility] Other SARS-CoV-2 (COVID-19) RNA NA A+probe Ql (Resp)on 01-12-2022 SARS-CoV-2 (COVID-19) RNA CLAY+probe Ql (Unsp spec) Negative [facility] Other Employee Comp Metabolic Kokoe jakob 01-07-2022 Albumin [Mass/Vol] 4.0 g/dL Normal 3.2-5.5 [facility] Comment on above: Performed By: #### P ILLAR LIPID, PILLAR TSH, PILLAR CBC, PILLAR CMP #### [facility] [address] [place] [address] [place] #### NICOTINE QUAL #### [facility] , Albumin/Globulin [Mass ratio] 1.4 {ratio} Normal [facility] Comment on above: Performed By: #### P ILLAR LIPID, PILLAR TSH, PILLAR CBC, PILLAR CMP #### [facility] [address] [place] [address] #### NICOTINE QUAL #### [facility] , ALP [Catalytic activity/Vol] 72 U/L Normal 32-92 [facility] Comment on above: Performed By: #### P ILLAR LIPID, PILLAR TSH, PILLAR CBC, PILLAR CMP #### [facility] [address] [place] [address] [place] #### NICOTINE QUAL #### [facility] , ALT [Catalytic activity/Vol] 20 U/L Normal 10-60 [facility] Comment on above: Performed By: #### P ILLAR LIPID, PILLAR TSH, PILLAR CBC, PILLAR CMP #### [facility] [address] [place] [address] [place] #### NICOTINE QUAL #### [facility] , AST [Catalytic activity/Vol] 23 U/L Normal 10-42 [facility] Comment on above: Performed By: #### P ILLAR LIPID, PILLAR TSH, PILLAR CBC, PILLAR CMP #### [facility] [address] [place] [address] [place] #### NICOTINE QUAL #### [facility] , Bilirubin [Mass/Vol] 0.4 mg/dL Normal 0.3-1.2 [facility] Comment on above: Performed By: #### P ILLAR LIPID, PILLAR TSH, PILLAR CBC, PILLAR CMP #### [facility] [address] [place] [address] [place] #### NICOTINE QUAL #### [facility] , Calcium [Mass/Vol] 9.6 mg/dL Normal 8.2-10.2 [facility] Comment on above: Performed By: #### P ILLAR LIPID, PILLAR TSH, PILLAR CBC, PILLAR CMP #### [facility] [address] [place] [address] [place] #### NICOTINE QUAL #### [facility] , Chloride [Moles/Vol] 101 mmol/L Normal 95-114 [facility] Comment on above: Performed By: #### P ILLAR LIPID, PILLAR TSH, PILLAR CBC, PILLAR CMP #### [facility] [address] [place] [address] [place] #### NICOTINE QUAL #### [facility] , CO2 [Moles/Vol] 24.9 mmol/L Normal 22.0-30.0 [facility] Comment on above: Performed By: #### P ILLAR LIPID, PILLAR TSH, PILLAR CBC, PILLAR CMP #### [facility] [address] [place] [address] [place] #### NICOTINE QUAL #### [facility] , Creatinine [Mass/Vol] 0.72 mg/dL Normal 0.44-1.03 [facility] Comment on above: Performed By: #### P ILLAR LIPID, PILLAR TSH, PILLAR CBC, PILLAR CMP #### [facility] [address] [place] [address] [place] #### NICOTINE QUAL #### [facility] , Estimated GFR ( Katelin > 60 Normal [facility] Comment on above: Result Comment: GFR estimated reference range: According to KDOQI guidelines, <60 ml/min/1.73m2 is sufficient to diagnose a patient with chronic kidney disease. Performed By: #### P ILLAR LIPID, PILLAR TSH, PILLAR CBC, PILLAR CMP #### [facility] [address] [place] [address] [place] #### NICOTINE QUAL #### [facility] , Estimated GFR (Non- Am > 60 Normal [facility] Comment on above: Performed By: #### P ILLAR LIPID, PILLAR TSH, PILLAR CBC, PILLAR CMP #### [place] [address] [place] #### NICOTINE QUAL #### [facility] , Globulin (S) [Mass/Vol] 2.8 g/dL Normal [facility] Comment on above: Performed By: #### P ILLAR LIPID, PILLAR TSH, PILLAR CBC, PILLAR CMP #### [place] [address] [place] #### NICOTINE QUAL #### [facility] , Glucose [Mass/Vol] 91 mg/dL Normal 70-100 [facility] Comment on above: Performed By: #### P ILLAR LIPID, PILLAR TSH, PILLAR CBC, PILLAR CMP #### [place] [address] [place] #### NICOTINE QUAL #### [facility] , Potassium [Moles/Vol] 4.3 mmol/L Normal 3.5-5.1 [facility] Comment on above: Performed By: #### P ILLAR LIPID, PILLAR TSH, PILLAR CBC, PILLAR CMP #### [facility] [address] [place] [address] [place] #### NICOTINE QUAL #### [facility] , Protein [Mass/Vol] 6.8 g/dL Normal 6.1-7.9 [facility] Comment on above: Performed By: #### P ILLAR LIPID, PILLAR TSH, PILLAR CBC, PILLAR CMP #### [place] [address] [place] #### NICOTINE QUAL #### [facility] , Sodium [Moles/Vol] 134 mmol/L Low 136-146 [facility] Comment on above: Performed By: #### P ILLAR LIPID, PILLAR TSH, PILLAR CBC, PILLAR CMP #### [facility] [address] [place] [address] #### NICOTINE QUAL #### [facility] , Urea nitrogen [Mass/Vol] 10 mg/dL Normal 9-23 [facility] Comment on above: Performed By: #### P ILLAR LIPID, PILLAR TSH, PILLAR CBC, PILLAR CMP #### [facility] [address] [place] [address] #### NICOTINE QUAL #### [facility] , Employee Complete Blood Coun ton 01-07-2022 Basophils (Bld) [#/Vol] 0.0 10*3/uL Normal 0.0-0.2 [facility] Comment on above: Result Comment: PERF ORMED BY: [place] [address] PATHOLOGIST MARKETING REPORTING ANALYST ROBERT WEBB M.D. Performed By: #### P ILLAR LIPID, PILLAR TSH, PILLAR CBC, PILLAR CMP #### [address] #### NICOTINE QUAL #### [facility] , Basophils/100 WBC (Bld) 0.5 % Normal . [facility] Comment on above: Performed By: #### P ILLAR LIPID, PILLAR TSH, PILLAR CBC, PILLAR CMP #### [facility] [address] [place] [address] [place] #### NICOTINE QUAL #### [facility] , Eosinophils (Bld) [#/Vol] 0.1 10*3/uL Normal 0.0-0.45 [facility] Comment on above: Performed By: #### P ILLAR LIPID, PILLAR TSH, PILLAR CBC, PILLAR CMP #### [place] [address] [place] #### NICOTINE QUAL #### [facility] , Eosinophils/100 WBC (Bld) 1.2 % Normal . [facility] Comment on above: Performed By: #### P ILLAR LIPID, PILLAR TSH, PILLAR CBC, PILLAR CMP #### [facility] [address] [place] [address] [place] #### NICOTINE QUAL #### [facility] , Erythrocyte distribution width (RBC) [Ratio] 16.0 % High 11.9-15.3 [facility] Comment on above: Performed By: #### P ILLAR LIPID, PILLAR TSH, PILLAR CBC, PILLAR CMP #### [address] #### NICOTINE QUAL #### [facility] , Hematocrit (Bld) [Volume fraction] 38.7 % Normal 34.0-46.4 [facility] Comment on above: Performed By: #### P ILLAR LIPID, PILLAR TSH, PILLAR CBC, PILLAR CMP #### [facility] [address] [place] [address] [place] #### NICOTINE QUAL #### [facility] , Hemoglobin (Bld) [Mass/Vol] 12.7 g/dL Normal 11.8-15.4 [facility] Comment on above: Performed By: #### P ILLAR LIPID, PILLAR TSH, PILLAR CBC, PILLAR CMP #### [place] [address] [place] #### NICOTINE QUAL #### [facility] , Lymphocytes (Bld) [#/Vol] 2.8 10*3/uL Normal 1.00-4.8 [facility] Comment on above: Performed By: #### P ILLAR LIPID, PILLAR TSH, PILLAR CBC, PILLAR CMP #### [facility] [address] [place] [address] [place] #### NICOTINE QUAL #### [facility] , Lymphocytes/100 WBC (Bld) 40.3 % Normal . [facility] Comment on above: Performed By: #### P ILLAR LIPID, PILLAR TSH, PILLAR CBC, PILLAR CMP #### [facility] [address] [place] [address] #### NICOTINE QUAL #### [facility] , MCH (RBC) [Entitic mass] 27.5 pg Normal 24.7-34.3 [facility] Comment on above: Performed By: #### P ILLAR LIPID, PILLAR TSH, PILLAR CBC, PILLAR CMP #### [facility] [address] [place] [address] #### NICOTINE QUAL #### [facility] , MCV (RBC) [Entitic vol] 84.2 fL Normal 80-100 [facility] Comment on above: Performed By: #### P ILLAR LIPID, PILLAR TSH, PILLAR CBC, PILLAR CMP #### [address] #### NICOTINE QUAL #### [facility] , Mean Corpuscular HGB Conc 32.7 g/dL Normal 32.0-35.0 [facility] Comment on above: Performed By: #### P ILLAR LIPID, PILLAR TSH, PILLAR CBC, PILLAR CMP #### [facility] [address] [place] [address] [place] #### NICOTINE QUAL #### [facility] , Monocytes (Bld) [#/Vol] 0.3 10*3/uL Normal 0.0-0.8 [facility] Comment on above: Performed By: #### P ILLAR LIPID, PILLAR TSH, PILLAR CBC, PILLAR CMP #### [facility] [address] [place] [address] #### NICOTINE QUAL #### [facility] , Monocytes/100 WBC (Bld) 5.0 % Normal . [facility] Comment on above: Performed By: #### P ILLAR LIPID, PILLAR TSH, PILLAR CBC, PILLAR CMP #### [facility] [address] [place] [address] [place] #### NICOTINE QUAL #### [facility] , Neutrophils (Bld) [#/Vol] 3.7 10*3/uL Normal 1.8-7.7 [facility] Comment on above: Performed By: #### P ILLAR LIPID, PILLAR TSH, PILLAR CBC, PILLAR CMP #### [facility] [address] [place] [address] #### NICOTINE QUAL #### [facility] , Neutrophils/100 WBC (Bld) 53.0 % Normal . [facility] Comment on above: Performed By: #### P ILLAR LIPID, PILLAR TSH, PILLAR CBC, PILLAR CMP #### [facility] [address] [place] [address] [place] #### NICOTINE QUAL #### [facility] , Nucleated RBC/100 WBC (Bld) [Ratio] 0.1 % Normal 0-0.5 [facility] Comment on above: Performed By: #### P ILLAR LIPID, PILLAR TSH, PILLAR CBC, PILLAR CMP #### [facility] [address] [place] [address] #### NICOTINE QUAL #### [facility] , Platelet mean volume (Bld) [Entitic vol] 7.8 fL Normal 6.3-10.7 [facility] Comment on above: Performed By: #### P ILLAR LIPID, PILLAR TSH, PILLAR CBC, PILLAR CMP #### [facility] [address] [place] [address] [place] #### NICOTINE QUAL #### [facility] , Platelets (Bld) [#/Vol] 297 10*3/uL Normal 150-450 [facility] Comment on above: Performed By: #### P ILLAR LIPID, PILLAR TSH, PILLAR CBC, PILLAR CMP #### [place] [address] [place] #### NICOTINE QUAL #### [facility] , RBC (Bld) [#/Vol] 4.60 10*6/uL Normal 3.60-5.00 [facility] Comment on above: Performed By: #### P ILLAR LIPID, PILLAR TSH, PILLAR CBC, PILLAR CMP #### [place] [address] [place] #### NICOTINE QUAL #### [facility] , WBC (Bld) [#/Vol] 6.9 10*3/uL Normal 4.5-11.0 [facility] Comment on above: Performed By: #### P ILLAR LIPID, PILLAR TSH, PILLAR CBC, PILLAR CMP #### [address] #### NICOTINE QUAL #### [facility] , Employee Lipid Profileon Cholesterol [Mass/Vol] 163 mg/dL Normal 140-200 [facility] Comment on above: Result Comment: Chol less than 200 mg/dl low risk Chol 201-239 mg/dl borderline risk Chol 240 mg/dl and greater high risk Performed By: #### P ILLAR LIPID, PILLAR TSH, PILLAR CBC, PILLAR CMP #### [place] [address] [place] #### NICOTINE QUAL #### [facility] , Cholesterol in HDL [Mass/Vol] 57 mg/dL Normal 35-85 [facility] Comment on above: Result Comment: HDL CHOL ATP-III CLASSIFICATION Cardiovascular Risk HDL > or equal to 60 mg/dL LOW HDL < 40 mg/dL HIGH Performed By: #### P ILLAR LIPID, PILLAR TSH, PILLAR CBC, PILLAR CMP #### [place] [address] [place] #### NICOTINE QUAL #### [facility] , Cholesterol.total/Ch olesterol in HDL [Mass ratio] 2.9 {ratio} Normal <5.0 [facility] Comment on above: Performed By: #### P ILLAR LIPID, PILLAR TSH, PILLAR CBC, PILLAR CMP #### [facility] [address] [place] [address] #### NICOTINE QUAL #### [facility] , LDL Cholesterol,Calculat ed 99 mg/dL Normal 0-100 [facility] Comment on above: Result Comment: LDL ATP III CLASSIFICATION LDL less than 100 mg/dL Optimal LDL 100-129 mg/dL Near or above optimal LDL 130-159 mg/dL Borderline high LDL 160-189 mg/dL High LDL greater than 189 mg/dL Very high Performed By: #### P ILLAR LIPID, PILLAR TSH, PILLAR CBC, PILLAR CMP #### [address] #### NICOTINE QUAL #### [facility] , Triglyceride w/Reflex 34 mg/dL Low 35-149 [facility] Comment on above: Result Comment: TRIG ATP III CLASSIFICATION TRIG less than 150 mg/dL Normal TRIG 150-199 mg/dL Borderline high TRIG 200-500 mg/dL High TRIG greater than 500 mg/dL Very high Standard traceable to the Center for Disease Conrtrol and Prevention (CDC) test method. Performed By: #### P ILLAR LIPID, PILLAR TSH, PILLAR CBC, PILLAR CMP #### [place] [address] [place] #### NICOTINE QUAL #### [facility] , VLDL CHOLESTEROL 6 mg/dL Normal [facility] Comment on above: Performed By: #### P ILLAR LIPID, PILLAR TSH, PILLAR CBC, PILLAR CMP #### [facility] [address] [place] [address] [place] #### NICOTINE QUAL #### [facility] , Employee Thyroid Stim Hormon jason 01-07-2022 Employee Thyroid Stim Hormone 2.14 u[iU]/mL Normal 0.45-5.33 [facility] Comment on above: Result Comment: PERF ORMED BY: [place] [address] PATHOLOGIST MARKETING REPORTING ANALYST ROBERT WEBB M.D. Performed By: #### P ILLAR LIPID, PILLAR TSH, PILLAR CBC, PILLAR CMP #### [address] #### NICOTINE QUAL #### [facility] , Nicotine Metabolite, Qualon 01-07-2022 Nicotine Metabolite Negative Normal Cutoff=25 [facility] Comment on above: Result Comment: Perf ormed at: - [facility] [address] [id number] [employer] Estimator: Josh Ortez MD, Phone: [phone] PERFORMED BY: [place] [address] PATHOLOGIST MARKETING REPORTING ANALYST ROBERT WEBB M.D. Performed By: #### P ILLAR LIPID, PILLAR TSH, PILLAR CBC, PILLAR CMP #### [address] #### NICOTINE QUAL #### [facility] , [...] by: JACKIE WILLETT Date: 2020-12-16 14:53 Normal [facility] Vital Signs Date Time Vital Sign Value Performing Clinician Facility 07-08-2023 13:27-0500 Body mass index (BMI) [Ratio] 38.51 kg/m2 Arpita GARDNER Work Phone: [facility] 07-08-2023 13:27-0500 Body weight 116.57 kg Arpita Gusman KENDRA Work Phone: [facility] 07-08-2023 13:27-0500 Diastolic blood pressure 70 mm[Hg] Arpita Gusman KENDRA Work Phone: [facility] 07-08-2023 13:27-0500 Systolic blood pressure 112 mm[Hg] Arpita Gusman KENDRA Work Phone: [facility] 03-01-2022 09:00-0400 Body height 175.26 cm Urban Max Other [facility] Other 03-01-2022 09:00-0400 Body mass index (BMI) [Ratio] 33.81 kg/m2 [facility] Other [facility] Other 03-01-2022 09:00-0400 Body temperature 97.9 [degF] Urban [facility] Other [facility] Other 03-01-2022 09:00-0400 Body weight 103.87 kg Urban Max Other [facility] Other 03-01-2022 09:00-0400 Diastolic blood pressure 80 mm[Hg] Urban Max Other [facility] Other 03-01-2022 09:00-0400 Respiratory rate 20 /min [facility] Other [facility] Other 03-01-2022 09:00-0400 SaO2% (BldA) [Mass fraction] 97 % [facility] Other [facility] Other 03-01-2022 09:00-0400 Systolic blood pressure 118 mm[Hg] Urban Max Other [facility] Other 01-18-2022 09:45-0400 Body height 175.26 cm Urban Max Other [facility] Other 01-18-2022 09:45-0400 Body mass index (BMI) [Ratio] 32.93 kg/m2 Urban [facility] Other [facility] Other 01-18-2022 09:45-0400 Body temperature 97.3 [degF] Urban Max Other [facility] Other 01-18-2022 09:45-0400 Body weight 101.15 kg Urban Max Other [facility] Other 01-18-2022 09:45-0400 Diastolic blood pressure 72 mm[Hg] Urban Max Other [facility] Other 01-18-2022 09:45-0400 Respiratory rate 20 /min Urban [facility] Other [facility] Other 01-18-2022 09:45-0400 SaO2% (BldA) [Mass fraction] 98 % Urban [facility] Other [facility] Other 01-18-2022 09:45-0400 Systolic blood pressure 112 mm[Hg] Urban Max Other [facility] Other 03-05-2021 16:15-0400 Body height 175.26 cm Urban Max Other [facility] Other 03-05-2021 16:15-0400 Body mass index (BMI) [Ratio] 35.14 kg/m2 Urban [facility] Other [facility] Other 03-05-2021 16:15-0400 Body weight 107.96 kg Urban Max Other [facility] Other 03-05-2021 16:15-0400 Diastolic blood pressure 68 mm[Hg] Urban Max Other [facility] Other 03-05-2021 16:15-0400 Respiratory rate 20 /min Urban Mxa Other [facility] Other 03-05-2021 16:15-0400 SaO2% (BldA) [Mass fraction] 98 % Urban [facility] Other [facility] Other 03-05-2021 16:15-0400 Systolic blood pressure 110 mm[Hg] Urban Max Other [facility] Other Encounters Encounter Date Encounter Type Care [...] 09-10-2022 End: 09-10-2022 ambulatory Susanne Huitron Other [facility] Other Start: 09-10-2022 Telephone encounter Susanne Soraidarachel [facility] Start: 08-21-2022 End: 08-21-2022 ambulatory Dontrell Gallegos Other [facility] Other Start: 08-21-2022 Telephone encounter Dontrell Perez [facility] Start: 08-09-2022 End: 08-09-2022 ambulatory Urban Max Other [facility] Other Start: 08-09-2022 Telephone encounter Urban Max [facility] Start: 08-07-2022 End: 08-07-2022 ambulatory Urban M. Max Facility:[facility] Start: 08-06-2022 End: 08-06-2022 ambulatory Urban Max Other [facility] Other Start: 08-06-2022 Telephone encounter Urban Max [facility] Start: 03-26-2022 End: 03-26-2022 ambulatory Urban Max Other [facility] Other Start: 03-26-2022 Telephone encounter Urban Max [facility] Start: 03-01-2022 End: 03-01-2022 ambulatory Urban Max Other [facility] Other Start: 03-01-2022 Encounter for genera l adult medical examination without abnormal findings Urban Max [facility] Start: 03-01-2022 Periodic preventive med est patient 18-39 yrs Urban Max [facility] Start: 02-13-2022 End: 02-13-2022 ambulatory Georgie Disla Other [facility] Other Start: 09-21-2022 Nursing evaluation o f patient and report Georgie Disla [facility] Start: 02-11-2022 End: 02-11-2022 ambulatory Georgie Disla Other [facility] Other Start: 02-11-2022 Nursing evaluation o f patient and report Georgie Disla [facility] Start: 01-18-2022 End: 01-18-2022 ambulatory Urban Max Other [facility] Other Start: 01-18-2022 Office outpatient visit 15 minutes Urban Max [facility] Start: 01-12-2022 End: 01-12-2022 ambulatory Georgie Disla Other [facility] Other Start: 01-12-2022 Nursing evaluation o f patient and report Georgie Disla [facility] Start: 01-07-2022 End: 01-07-2022 ambulatory Asim Garber Facility:[facility] Start: 03-05-2021 Encounter for genera l adult medical examination without abnormal findings Urban Max [facility] Start: 03-05-2021 Periodic preventive med est patient 18-39 yrs Urban Max [facility] Start: 12-16-2020 End: 12-16-[address] DOCTOR [...] 02-27-2021 influenza, seasonal, injectable Urban Max Other [facility] Other 02-29-2020 influenza, injectable, quadrivalent, contains preservative [facility] Other [facility] Other 02-29-2020 influenza virus vaccine, unspecified formulation Arpita GARDNER Work Phone: [facility] 02-07-2020 influenza, injectable, quadrivalent, contains preservative Patient Objection Urban Max Other [facility] Other NEGATED: Highlighted row has not occurred!02-07-2020 influenza, injectable, quadrivalent, contains preservative Patient Objection Georgie Disla Other [facility] Other Payers Date Payer Category Payer Medicaid [facility] [employer] [place] [id number] 2023-Present [address] [place] [address] [id number] 2022 Medicaid [id number] [address] [employer]US [id number] 2022-Present [address] [place] [address] [id number] 2022 Unknown [id number] 2021 Self-pay 1994 Unknown [id number] 1994 Unknown [id number] 1994 Unknown [id number] 1994 Unknown [id number] 1994 Unknown [id number] 1994 Unknown [id number] 1959 Unknown [id number] Unknown [id number] Unknown [id number] Social History Date Type Detail Facility Unknown if ever smoked [facility] [employer] Other Start: 12-03-2022 Sex Assigned At [facility] [employer] Other Start: 12-01-2022 Tobacco smoking status [facility]IS Never smoked tobacco [facility] Start: 07-08-2023 [...] of: KENDRA Palencia documented in this encounter [facility] 08-21-2022 Evaluation note Encounter Date Diagnosis Assessment Notes Jul, Acute non-recurrent frontal sinusitis (ICD-10 - J01.10) [facility] Other 03-14-2023 Evaluation note* Encounter Date Diagnosis Assessment Notes Treatment Notes Treatment Clinical Notes Jul, Dysuria (ICD-10 - R30.0) [facility] Other 11-01-2022 Evaluation note* Encounter Date Diagnosis Assessment Notes Treatment Notes Treatment Clinical Notes Mar, Anxiety (ICD-10 - F41.9) [facility] Other 10-07-2022 Evaluation note* Encounter Date Diagnosis Assessment Notes Treatment Notes Treatment Clinical Notes Feb, Encntr for general adult medical exam w/o abnormal findings (ICD-10 - Z00.00) Feb, Other No change today...Continue as is...FU 6 months.... [facility] Other 09-21-2022 Evaluation note* Encounter Date Diagnosis Assessment Notes Treatment Notes Treatment Clinical Notes Jan, Contact with and (suspected) exposure to other viral communicable diseases (ICD-10 - Z20.828) [facility] Other 09-19-2022 Evaluation note* Encounter Date Diagnosis Assessment Notes Treatment Notes Treatment Clinical Notes Jan, Contact with and (suspected) exposure to other viral communicable diseases (ICD-10 - Z20.828) [facility] Other 08-26-2022 Evaluation note* Encounter Date Diagnosis Assessment Notes Treatment Notes Treatment Clinical Notes Dec, Anxiety (ICD-10 - F41.9) E Rx sent. Lengthy discussion with patient that I think we need to try something than just a straight SSRI. We will see patient back in review. We talked about potential side effects as well as outcomes. She will call with any concerns. [facility] Other 08-20-2022 Evaluation note* Encounter Date Diagnosis Assessment Notes Treatment Notes Treatment Clinical Notes Dec, Contact with and (suspected) exposure to other viral communicable diseases (ICD-10 - Z20.828) [facility] Other 10-11-2021 Evaluation note* Encounter Date Diagnosis Assessment Notes Treatment Notes Treatment Clinical Notes Feb, Encntr for general adult medical exam w/o abnormal findings (ICD-10 - Z00.00) Feb, Other No change today...Continue as is...FU PRN/Yearly... [facility] Other Evaluation noteNo InformationNort [facility] Other Evaluation note* Diagnosis Third trimester state, incidental documented in this encounter [facility] N[facility]ative - Reported* Type Description Date Medical History Hx of MRSA Medical History anxiety Surgical History tonsillectomy and adenoidectomy 2012 Surgical History c-sections 2009 and 2016 Hospitalization History C Sections [facility] Other Summary Purpose Family History No Family History Records FoundNo Family History Records FoundNo Family History Records Found Advance Directives No Advanced Directives Records FoundNo Advanced Directives Records FoundNo Advanced Directives Records Found Additional Source Comments INFORMATION SOURCE (unrecogn ized section and content) DATE CREATED AUTHOR 12/19/2020 Neha rick DATE CREATED AUTHOR AUTHOR'S ORGANIZ ATION 08/09/2022 [facility] DATE CREATED AUTHOR AUTHOR'S ORGANIZ ATION 07/10/2023 [facility] EPIC REASON FOR VISIT (unrecogniz ed section and content) Reason Comments Routine Visit Care Teams (unrecognized sec tion and content) Central Supply Assistant Relationship Specialty Start Date End Date Urabn Santana MD [address] [place] [phone] PCP - General Family Medicine 11/18/22 FOR [...] BE BASED ON THE PRIMARY CLINICAL RECORDS. [facility]. provides no warranty or guarantee of the accuracy or completeness of information in this document.
--- NOTE | 2023-07-17 16:04 | US_ITS ---
The [address] [address] Patient Name: JARVIS MACEDO MRN: [id number] date: 1995 Sex: F [place] [facility] [place] [facility] [place] Accession/Order Number: [id number] Exam Date: 07/17/2023 16:40 Report Date: 07/17/2023 17:30 At the request of: TALITA LEARY Procedure: US OB amniotic fluid vol EXAM: US OB amniotic fluid vol 07/17/2023 2:28 PM PST, [id number] HISTORY: lga, low chevy. TECHNIQUE: Multiple longitudinal and transverse grayscale and color sonographic images of the uterus and intrauterine gestation were acquired. M-mode heart rate images were obtained. COMPARISON: biophysical profile 07/14/2023. FINDINGS/IMPRESSION: Single live intrauterine gestation. Presentation: Cephalic Heart rate: 138 bpm Amniotic fluid index: 10.87 cm (previously 8.39 cm on 07/14/2023). Deepest fluid pocket: 3.4 cm Electronically authenticated by: ELBA ALBRIGHT Date: 07/17/2023 17:30
[2023-07-17 16:10] VITALS: BP 114/62; PULSE 96
== END 2023-07-17 17:11 | disposition home or self-care (01) ==
LOC: FBCO 07:27 → FBC 16:01
PROVIDERS: PCP Family Medicine; Visit Provider Obstetrics & Gynecology
DX: O36.63X0 Maternal care for excessive fetal growth, third trimester, not applicable or unspecified (principal)
CPT/HCPCS: 76815

== ENCOUNTER 2023-07-21 07:30 | Outpatient (OUT) | payer BC, OTHER, SELFPAY ==
--- OUTSIDE RECORDS SUMMARY | 2023-07-21 07:33 | XMS_ITS | CCD ---
Author Name Unknown Address [facility] GRAVIDI [facility] [address] [place] [id number] Organization [facility] Care Team Providers Care Barrelhead Inspector Name Role Phone TARYN, DR GA Primary [...] Unavailable Urban Santana MD Primary Care Provider [phone] ARPITA GUSMAN Attending Unavailable ARPITA GUSMAN Attending [...] UA Negative Negative - 4(70) +++ mg/dL [facility] Blood, UA Negative Negative - 50 Rodriguez/mcL [facility] Clarity, UA Clear [facility] Color, UA Yellow [facility] Glucose, UA Negative Negative - 2000(110) ++++ mg/dL [facility] Interpretation and review of laboratory results Abnormal [facility] Ketones, UA Negative Negative - 160(16) ++++ mg/dL [facility] Leukocytes, UA Positive Negative - 500+++ Dg/mcL [facility] Nitrite, UA Negative Negative - Positive [facility] pH, UA 5.5 5 - 9 [facility] Protein, UA Negative Negative - 1999(20) ++++ mg/dL [facility] Spec Grav, UA 1.015 1 - 1.03 [facility] Urobilinogen, UA 1.0 0.2 - 12 mg/dL [facility] Health[facility] Urine Cultureon 08-07-2022 Urine Culture >100,000 [employer] Other Urine Culture <16 Susceptible [employer] Other Urine Culture <8/4 Susceptible [employer] Other Urine Culture >16 Resistant [employer] Other Urine Culture <4 Susceptible [employer] Other Urine Culture <2 Susceptible [employer] Other Urine Culture <1 Susceptible [employer] Other Urine Culture <0.25 Susceptible [employer] Other Urine Culture <0.5 Susceptible [employer] Other Urine Culture >8 Resistant [employer] Other Urine Culture <32 Susceptible [employer] Other Urine Culture 4 Susceptible [employer] Other Urine Culture >2/38 Resistant [employer] Other Bacteria identified Cx Nom (U) Reason for Exam Dysuria Urine Reason for Exam: Dysuria : Urine ORGANISM: Escherichia coli (O:ESCCOL) Lawrence Count >100,000 Aerobic REMY Charge ([id number]) ------ [...] RESISTANT TO ALL B-LACTAM DRUGS. PERFORMED BY: [place] [address] PATHOLOGIST AEROSPACE PROJECT ENGINEER ROBERT WEBB M.D. [facility] Comment on above: Performed By: #### C UU #### [address] SARS-CoV-2 (COVID-19) RNA NA A+probe Ql (Resp)on 02-13-2022 SARS-CoV-2 (COVID-19) RNA CLAY+probe Ql (Unsp spec) Positive [employer] Other SARS-CoV-2 (COVID-19) RNA NA A+probe Ql (Resp)on 02-11-2022 SARS-CoV-2 (COVID-19) RNA CLAY+probe Ql (Unsp spec) Negative [employer] Other SARS-CoV-2 (COVID-19) RNA NA A+probe Ql (Resp)on 01-12-2022 SARS-CoV-2 (COVID-19) RNA CLAY+probe Ql (Unsp spec) Negative [employer] Other Employee Comp Metabolic Kokoe jakob 01-07-2022 Albumin [Mass/Vol] 4.0 g/dL Normal 3.2-5.5 [facility] Comment on above: Performed By: #### P ILLAR LIPID, PILLAR TSH, PILLAR CBC, PILLAR CMP #### [facility] [address] [place] [address] [place] #### NICOTINE QUAL #### [facility] , Albumin/Globulin [Mass ratio] 1.4 {ratio} Normal [facility] Comment on above: Performed By: #### P ILLAR LIPID, PILLAR TSH, PILLAR CBC, PILLAR CMP #### [facility] [address] [place] [address] #### NICOTINE QUAL #### [facility] , ALP [Catalytic activity/Vol] 72 U/L Normal 32-92 [facility] Comment on above: Performed By: #### P ILLAR LIPID, PILLAR TSH, PILLAR CBC, PILLAR CMP #### [facility] [address] [place] [address] [place] #### NICOTINE QUAL #### [facility] , ALT [Catalytic activity/Vol] 20 U/L Normal 10-60 [facility] Comment on above: Performed By: #### P ILLAR LIPID, PILLAR TSH, PILLAR CBC, PILLAR CMP #### [facility] [address] [place] [address] [place] #### NICOTINE QUAL #### [facility] , AST [Catalytic activity/Vol] 23 U/L Normal 10-42 [facility] Comment on above: Performed By: #### P ILLAR LIPID, PILLAR TSH, PILLAR CBC, PILLAR CMP #### [facility] [address] [place] [address] [place] #### NICOTINE QUAL #### [facility] , Bilirubin [Mass/Vol] 0.4 mg/dL Normal 0.3-1.2 [facility] Comment on above: Performed By: #### P ILLAR LIPID, PILLAR TSH, PILLAR CBC, PILLAR CMP #### [facility] [address] [place] [address] [place] #### NICOTINE QUAL #### [facility] , Calcium [Mass/Vol] 9.6 mg/dL Normal 8.2-10.2 [facility] Comment on above: Performed By: #### P ILLAR LIPID, PILLAR TSH, PILLAR CBC, PILLAR CMP #### [facility] [address] [place] [address] [place] #### NICOTINE QUAL #### [facility] , Chloride [Moles/Vol] 101 mmol/L Normal 95-114 [facility] Comment on above: Performed By: #### P ILLAR LIPID, PILLAR TSH, PILLAR CBC, PILLAR CMP #### [facility] [address] [place] [address] [place] #### NICOTINE QUAL #### [facility] , CO2 [Moles/Vol] 24.9 mmol/L Normal 22.0-30.0 [facility] Comment on above: Performed By: #### P ILLAR LIPID, PILLAR TSH, PILLAR CBC, PILLAR CMP #### [facility] [address] [place] [address] [place] #### NICOTINE QUAL #### [facility] , Creatinine [Mass/Vol] 0.72 mg/dL Normal 0.44-1.03 [facility] Comment on above: Performed By: #### P ILLAR LIPID, PILLAR TSH, PILLAR CBC, PILLAR CMP #### [facility] [address] [place] [address] [place] #### NICOTINE QUAL #### [facility] , Estimated GFR ( Katelin > 60 Normal [facility] Comment on above: Result Comment: GFR estimated reference range: According to KDOQI guidelines, <60 ml/min/1.73m2 is sufficient to diagnose a patient with chronic kidney disease. Performed By: #### P ILLAR LIPID, PILLAR TSH, PILLAR CBC, PILLAR CMP #### [facility] [address] [place] [address] [place] #### NICOTINE QUAL #### [facility] , Estimated GFR (Non- Am > 60 Normal [facility] Comment on above: Performed By: #### P ILLAR LIPID, PILLAR TSH, PILLAR CBC, PILLAR CMP #### [place] [address] [place] #### NICOTINE QUAL #### [facility] , Globulin (S) [Mass/Vol] 2.8 g/dL Normal [facility] Comment on above: Performed By: #### P ILLAR LIPID, PILLAR TSH, PILLAR CBC, PILLAR CMP #### [place] [address] [place] #### NICOTINE QUAL #### [facility] , Glucose [Mass/Vol] 91 mg/dL Normal 70-100 [facility] Comment on above: Performed By: #### P ILLAR LIPID, PILLAR TSH, PILLAR CBC, PILLAR CMP #### [place] [address] [place] #### NICOTINE QUAL #### [facility] , Potassium [Moles/Vol] 4.3 mmol/L Normal 3.5-5.1 [facility] Comment on above: Performed By: #### P ILLAR LIPID, PILLAR TSH, PILLAR CBC, PILLAR CMP #### [facility] [address] [place] [address] [place] #### NICOTINE QUAL #### [facility] , Protein [Mass/Vol] 6.8 g/dL Normal 6.1-7.9 [facility] Comment on above: Performed By: #### P ILLAR LIPID, PILLAR TSH, PILLAR CBC, PILLAR CMP #### [place] [address] [place] #### NICOTINE QUAL #### [facility] , Sodium [Moles/Vol] 134 mmol/L Low 136-146 [facility] Comment on above: Performed By: #### P ILLAR LIPID, PILLAR TSH, PILLAR CBC, PILLAR CMP #### [facility] [address] [place] [address] #### NICOTINE QUAL #### [facility] , Urea nitrogen [Mass/Vol] 10 mg/dL Normal 9-23 [facility] Comment on above: Performed By: #### P ILLAR LIPID, PILLAR TSH, PILLAR CBC, PILLAR CMP #### [facility] [address] [place] [address] #### NICOTINE QUAL #### [facility] , Employee Complete Blood Coun ton 01-07-2022 Basophils (Bld) [#/Vol] 0.0 10*3/uL Normal 0.0-0.2 [facility] Comment on above: Result Comment: PERF ORMED BY: [place] [address] PATHOLOGIST AEROSPACE PROJECT ENGINEER ROBERT WEBB M.D. Performed By: #### P ILLAR LIPID, PILLAR TSH, PILLAR CBC, PILLAR CMP #### [address] #### NICOTINE QUAL #### [facility] , Basophils/100 WBC (Bld) 0.5 % Normal . [facility] Comment on above: Performed By: #### P ILLAR LIPID, PILLAR TSH, PILLAR CBC, PILLAR CMP #### [facility] [address] [place] [address] [place] #### NICOTINE QUAL #### [facility] , Eosinophils (Bld) [#/Vol] 0.1 10*3/uL Normal 0.0-0.45 [facility] Comment on above: Performed By: #### P ILLAR LIPID, PILLAR TSH, PILLAR CBC, PILLAR CMP #### [place] [address] [place] #### NICOTINE QUAL #### [facility] , Eosinophils/100 WBC (Bld) 1.2 % Normal . [facility] Comment on above: Performed By: #### P ILLAR LIPID, PILLAR TSH, PILLAR CBC, PILLAR CMP #### [facility] [address] [place] [address] [place] #### NICOTINE QUAL #### [facility] , Erythrocyte distribution width (RBC) [Ratio] 16.0 % High 11.9-15.3 [facility] Comment on above: Performed By: #### P ILLAR LIPID, PILLAR TSH, PILLAR CBC, PILLAR CMP #### [address] #### NICOTINE QUAL #### [facility] , Hematocrit (Bld) [Volume fraction] 38.7 % Normal 34.0-46.4 [facility] Comment on above: Performed By: #### P ILLAR LIPID, PILLAR TSH, PILLAR CBC, PILLAR CMP #### [facility] [address] [place] [address] [place] #### NICOTINE QUAL #### [facility] , Hemoglobin (Bld) [Mass/Vol] 12.7 g/dL Normal 11.8-15.4 [facility] Comment on above: Performed By: #### P ILLAR LIPID, PILLAR TSH, PILLAR CBC, PILLAR CMP #### [place] [address] [place] #### NICOTINE QUAL #### [facility] , Lymphocytes (Bld) [#/Vol] 2.8 10*3/uL Normal 1.00-4.8 [facility] Comment on above: Performed By: #### P ILLAR LIPID, PILLAR TSH, PILLAR CBC, PILLAR CMP #### [facility] [address] [place] [address] [place] #### NICOTINE QUAL #### [facility] , Lymphocytes/100 WBC (Bld) 40.3 % Normal . [facility] Comment on above: Performed By: #### P ILLAR LIPID, PILLAR TSH, PILLAR CBC, PILLAR CMP #### [facility] [address] [place] [address] #### NICOTINE QUAL #### [facility] , MCH (RBC) [Entitic mass] 27.5 pg Normal 24.7-34.3 [facility] Comment on above: Performed By: #### P ILLAR LIPID, PILLAR TSH, PILLAR CBC, PILLAR CMP #### [facility] [address] [place] [address] #### NICOTINE QUAL #### [facility] , MCV (RBC) [Entitic vol] 84.2 fL Normal 80-100 [facility] Comment on above: Performed By: #### P ILLAR LIPID, PILLAR TSH, PILLAR CBC, PILLAR CMP #### [address] #### NICOTINE QUAL #### [facility] , Mean Corpuscular HGB Conc 32.7 g/dL Normal 32.0-35.0 [facility] Comment on above: Performed By: #### P ILLAR LIPID, PILLAR TSH, PILLAR CBC, PILLAR CMP #### [facility] [address] [place] [address] [place] #### NICOTINE QUAL #### [facility] , Monocytes (Bld) [#/Vol] 0.3 10*3/uL Normal 0.0-0.8 [facility] Comment on above: Performed By: #### P ILLAR LIPID, PILLAR TSH, PILLAR CBC, PILLAR CMP #### [facility] [address] [place] [address] #### NICOTINE QUAL #### [facility] , Monocytes/100 WBC (Bld) 5.0 % Normal . [facility] Comment on above: Performed By: #### P ILLAR LIPID, PILLAR TSH, PILLAR CBC, PILLAR CMP #### [facility] [address] [place] [address] [place] #### NICOTINE QUAL #### [facility] , Neutrophils (Bld) [#/Vol] 3.7 10*3/uL Normal 1.8-7.7 [facility] Comment on above: Performed By: #### P ILLAR LIPID, PILLAR TSH, PILLAR CBC, PILLAR CMP #### [facility] [address] [place] [address] #### NICOTINE QUAL #### [facility] , Neutrophils/100 WBC (Bld) 53.0 % Normal . [facility] Comment on above: Performed By: #### P ILLAR LIPID, PILLAR TSH, PILLAR CBC, PILLAR CMP #### [facility] [address] [place] [address] [place] #### NICOTINE QUAL #### [facility] , Nucleated RBC/100 WBC (Bld) [Ratio] 0.1 % Normal 0-0.5 [facility] Comment on above: Performed By: #### P ILLAR LIPID, PILLAR TSH, PILLAR CBC, PILLAR CMP #### [facility] [address] [place] [address] #### NICOTINE QUAL #### [facility] , Platelet mean volume (Bld) [Entitic vol] 7.8 fL Normal 6.3-10.7 [facility] Comment on above: Performed By: #### P ILLAR LIPID, PILLAR TSH, PILLAR CBC, PILLAR CMP #### [facility] [address] [place] [address] [place] #### NICOTINE QUAL #### [facility] , Platelets (Bld) [#/Vol] 297 10*3/uL Normal 150-450 [facility] Comment on above: Performed By: #### P ILLAR LIPID, PILLAR TSH, PILLAR CBC, PILLAR CMP #### [place] [address] [place] #### NICOTINE QUAL #### [facility] , RBC (Bld) [#/Vol] 4.60 10*6/uL Normal 3.60-5.00 [facility] Comment on above: Performed By: #### P ILLAR LIPID, PILLAR TSH, PILLAR CBC, PILLAR CMP #### [place] [address] [place] #### NICOTINE QUAL #### [facility] , WBC (Bld) [#/Vol] 6.9 10*3/uL Normal 4.5-11.0 [facility] Comment on above: Performed By: #### P ILLAR LIPID, PILLAR TSH, PILLAR CBC, PILLAR CMP #### [address] #### NICOTINE QUAL #### [facility] , Employee Lipid Profileon Cholesterol [Mass/Vol] 163 mg/dL Normal 140-200 [facility] Comment on above: Result Comment: Chol less than 200 mg/dl low risk Chol 201-239 mg/dl borderline risk Chol 240 mg/dl and greater high risk Performed By: #### P ILLAR LIPID, PILLAR TSH, PILLAR CBC, PILLAR CMP #### [place] [address] [place] #### NICOTINE QUAL #### [facility] , Cholesterol in HDL [Mass/Vol] 57 mg/dL Normal 35-85 [facility] Comment on above: Result Comment: HDL CHOL ATP-III CLASSIFICATION Cardiovascular Risk HDL > or equal to 60 mg/dL LOW HDL < 40 mg/dL HIGH Performed By: #### P ILLAR LIPID, PILLAR TSH, PILLAR CBC, PILLAR CMP #### [place] [address] [place] #### NICOTINE QUAL #### [facility] , Cholesterol.total/Ch olesterol in HDL [Mass ratio] 2.9 {ratio} Normal <5.0 [facility] Comment on above: Performed By: #### P ILLAR LIPID, PILLAR TSH, PILLAR CBC, PILLAR CMP #### [facility] [address] [place] [address] #### NICOTINE QUAL #### [facility] , LDL Cholesterol,Calculat ed 99 mg/dL Normal 0-100 [facility] Comment on above: Result Comment: LDL ATP III CLASSIFICATION LDL less than 100 mg/dL Optimal LDL 100-129 mg/dL Near or above optimal LDL 130-159 mg/dL Borderline high LDL 160-189 mg/dL High LDL greater than 189 mg/dL Very high Performed By: #### P ILLAR LIPID, PILLAR TSH, PILLAR CBC, PILLAR CMP #### [address] #### NICOTINE QUAL #### [facility] , Triglyceride w/Reflex 34 mg/dL Low 35-149 [facility] Comment on above: Result Comment: TRIG ATP III CLASSIFICATION TRIG less than 150 mg/dL Normal TRIG 150-199 mg/dL Borderline high TRIG 200-500 mg/dL High TRIG greater than 500 mg/dL Very high Standard traceable to the Center for Disease Conrtrol and Prevention (CDC) test method. Performed By: #### P ILLAR LIPID, PILLAR TSH, PILLAR CBC, PILLAR CMP #### [place] [address] [place] #### NICOTINE QUAL #### [facility] , VLDL CHOLESTEROL 6 mg/dL Normal [facility] Comment on above: Performed By: #### P ILLAR LIPID, PILLAR TSH, PILLAR CBC, PILLAR CMP #### [facility] [address] [place] [address] [place] #### NICOTINE QUAL #### [facility] , Employee Thyroid Stim Hormon jason 01-07-2022 Employee Thyroid Stim Hormone 2.14 u[iU]/mL Normal 0.45-5.33 [facility] Comment on above: Result Comment: PERF ORMED BY: [place] [address] PATHOLOGIST AEROSPACE PROJECT ENGINEER ROBERT WEBB M.D. Performed By: #### P ILLAR LIPID, PILLAR TSH, PILLAR CBC, PILLAR CMP #### [address] #### NICOTINE QUAL #### [facility] , Nicotine Metabolite, Qualon 01-07-2022 Nicotine Metabolite Negative Normal Cutoff=25 [facility] Comment on above: Result Comment: Perf ormed at: - [facility] [address] [id number] Biometrics Technician: Josh Ortez MD, Phone: [phone] PERFORMED BY: [place] [address] PATHOLOGIST AEROSPACE PROJECT ENGINEER ROBERT WEBB M.D. Performed By: #### P ILLAR LIPID, PILLAR TSH, PILLAR CBC, PILLAR CMP #### [address] #### NICOTINE QUAL #### [facility] , [...] by: JACKIE WILLETT Date: 2020-12-16 14:53 Normal [facility] Vital Signs Date Time Vital Sign Value Performing Clinician Facility 07-08-2023 13:27-0500 Body mass index (BMI) [Ratio] 38.51 kg/m2 Arpita GARDNER Work Phone: [facility] 07-08-2023 13:27-0500 Body weight 116.57 kg Arpita Gusman KENDRA Work Phone: [facility] 07-08-2023 13:27-0500 Diastolic blood pressure 70 mm[Hg] Arpita Gusman KENDRA Work Phone: [facility] 07-08-2023 13:27-0500 Systolic blood pressure 112 mm[Hg] Arpita Gusman KENDRA Work Phone: [facility] 03-01-2022 09:00-0400 Body height 175.26 cm Urban Max Other [employer] Other 03-01-2022 09:00-0400 Body mass index (BMI) [Ratio] 33.81 kg/m2 Urban Max Other [employer] Other 03-01-2022 09:00-0400 Body temperature 97.9 [degF] Urban Max Other [employer] Other 03-01-2022 09:00-0400 Body weight 103.87 kg Urban Max Other [employer] Other 03-01-2022 09:00-0400 Diastolic blood pressure 80 mm[Hg] Urban Max Other [employer] Other 03-01-2022 09:00-0400 Respiratory rate 20 /min Urban Mxa Other [employer] Other 03-01-2022 09:00-0400 SaO2% (BldA) [Mass fraction] 97 % Urban Max Other [employer] Other 03-01-2022 09:00-0400 Systolic blood pressure 118 mm[Hg] Urban Max Other [employer] Other 01-18-2022 09:45-0400 Body height 175.26 cm Urban Max Other [employer] Other 01-18-2022 09:45-0400 Body mass index (BMI) [Ratio] 32.93 kg/m2 Urban Max Other [employer] Other 01-18-2022 09:45-0400 Body temperature 97.3 [degF] Urban Max Other [employer] Other 01-18-2022 09:45-0400 Body weight 101.15 kg Urban Max Other [employer] Other 01-18-2022 09:45-0400 Diastolic blood pressure 72 mm[Hg] Urban Max Other [employer] Other 01-18-2022 09:45-0400 Respiratory rate 20 /min Urban Max Other [employer] Other 01-18-2022 09:45-0400 SaO2% (BldA) [Mass fraction] 98 % Urban Max Other [employer] Other 01-18-2022 09:45-0400 Systolic blood pressure 112 mm[Hg] Urban Max Other [employer] Other 03-05-2021 16:15-0400 Body height 175.26 cm Urban Max Other [employer] Other 03-05-2021 16:15-0400 Body mass index (BMI) [Ratio] 35.14 kg/m2 Urban Max Other [employer] Other 03-05-2021 16:15-0400 Body weight 107.96 kg Urban Max Other [employer] Other 03-05-2021 16:15-0400 Diastolic blood pressure 68 mm[Hg] Urban Max Other [employer] Other 03-05-2021 16:15-0400 Respiratory rate 20 /min Urban Max Other [employer] Other 03-05-2021 16:15-0400 SaO2% (BldA) [Mass fraction] 98 % Urban Max Other [employer] Other 03-05-2021 16:15-0400 Systolic blood pressure 110 mm[Hg] Ubran Max Other [employer] Other Encounters Encounter Date Encounter Type Care [...] 09-10-2022 End: 09-10-2022 ambulatory Susanne Huitron Other [employer] Other Start: 09-10-2022 Telephone encounter Susanne Soraidarachel Perez [facility] Start: 08-21-2022 End: 08-21-2022 ambulatory Dontrell Gallegos Other [employer] Other Start: 08-21-2022 Telephone encounter Dontrell [facility] Start: 08-09-2022 End: 08-09-2022 ambulatory Urban Max Other [employer] Other Start: 08-09-2022 Telephone encounter Urban Max [facility] Start: 08-07-2022 End: 08-07-2022 ambulatory Urban M. Max Facility:[facility] Start: 08-06-2022 End: 08-06-2022 ambulatory Urban Max Other [employer] Other Start: 08-06-2022 Telephone encounter Urban Max [facility] Start: 03-26-2022 End: 03-26-2022 ambulatory Urban Max Other [employer] Other Start: 03-26-2022 Telephone encounter Urban Max [facility] Start: 03-01-2022 End: 03-01-2022 ambulatory Urban Max Other [employer] Other Start: 03-01-2022 Encounter for genera l adult medical examination without abnormal findings Urban Max [facility] Start: 03-01-2022 Periodic preventive med est patient 18-39 yrs Urban Max [facility] Start: 02-13-2022 End: 02-13-2022 ambulatory Georgie Disla Other [employer] Other Start: 09-21-2022 Nursing evaluation o f patient and report Georgie Disla [facility] Start: 02-11-2022 End: 02-11-2022 ambulatory Georgie Disla Other [employer] Other Start: 02-11-2022 Nursing evaluation o f patient and report Georgie Disla [facility] Start: 01-18-2022 End: 01-18-2022 ambulatory Urban Max Other [employer] Other Start: 01-18-2022 Office outpatient visit 15 minutes Urban Max [facility] Start: 01-12-2022 End: 01-12-2022 ambulatory Georgie Disla Other [employer] Other Start: 01-12-2022 Nursing evaluation o f patient and report Georgie Disla [facility] Start: 01-07-2022 End: 01-07-2022 ambulatory Asim Garber Facility:[facility] Start: 03-05-2021 Encounter for genera l adult medical examination without abnormal findings Urban Max [facility] Start: 03-05-2021 Periodic preventive med est patient 18-39 yrs Urban Max [facility] Start: 12-16-2020 End: 12-16-[address] DOCTOR [...] 02-27-2021 influenza, seasonal, injectable Urban Max Other [employer] Other 02-29-2020 influenza, injectable, quadrivalent, contains preservative Urban Max Other [employer] Other 02-29-2020 influenza virus vaccine, unspecified formulation Arpita GARDNER Work Phone: [facility] 02-07-2020 influenza, injectable, quadrivalent, contains preservative Patient Objection Urban Max Other [employer] Other NEGATED: Highlighted row has not occurred!02-07-2020 influenza, injectable, quadrivalent, contains preservative Patient Objection Georgie Disla Other [employer] Other Payers Date Payer Category Payer [facility] [employer] [place] [id number] 2023-Present [address] [place] [address] [id number] 2022 Medicaid [id number] [address] [employer]US [id number] 2022-Present [address] [place] [address] [id number] 2022 Unknown [id number] 2021 Self-pay 1994 Unknown [id number] 1994 Unknown [id number] 1994 Unknown [id number] 1994 Unknown [id number] 1994 Unknown [id number] 1994 Unknown [id number] 1959 Unknown [id number] Unknown [id number] Unknown [id number] Social History Date Type Detail Facility Unknown if ever smoked [facility] [email or web address] Other Start: 12-03-2022 Sex Assigned At N [email or web address] Other Start: 12-01-2022 Tobacco smoking status ILIS Never smoked tobacco [facility] Start: 07-08-2023 [...] of: KENDRA Palencia documented in this encounter [facility] 08-21-2022 Evaluation note Encounter Date Diagnosis Assessment Notes Jul, Acute non-recurrent frontal sinusitis (ICD-10 - J01.10) [employer] Other 03-14-2023 Evaluation note* Encounter Date Diagnosis Assessment Notes Treatment Notes Treatment Clinical Notes Jul, Dysuria (ICD-10 - R30.0) [employer] Other 11-01-2022 Evaluation note* Encounter Date Diagnosis Assessment Notes Treatment Notes Treatment Clinical Notes Mar, Anxiety (ICD-10 - F41.9) [employer] Other 10-07-2022 Evaluation note* Encounter Date Diagnosis Assessment Notes Treatment Notes Treatment Clinical Notes Feb, Encntr for general adult medical exam w/o abnormal findings (ICD-10 - Z00.00) Feb, Other No change today...Continue as is...FU 6 months.... [employer] Other 09-21-2022 Evaluation note* Encounter Date Diagnosis Assessment Notes Treatment Notes Treatment Clinical Notes Jan, Contact with and (suspected) exposure to other viral communicable diseases (ICD-10 - Z20.828) [employer] Other 09-19-2022 Evaluation note* Encounter Date Diagnosis Assessment Notes Treatment Notes Treatment Clinical Notes Jan, Contact with and (suspected) exposure to other viral communicable diseases (ICD-10 - Z20.828) [facility] Other 08-26-2022 Evaluation note* Encounter Date Diagnosis Assessment Notes Treatment Notes Treatment Clinical Notes Dec, Anxiety (ICD-10 - F41.9) E Rx sent. Lengthy discussion with patient that I think we need to try something than just a straight SSRI. We will see patient back in review. We talked about potential side effects as well as outcomes. She will call with any concerns. [facility] Other 08-20-2022 Evaluation note* Encounter Date Diagnosis Assessment Notes Treatment Notes Treatment Clinical Notes Dec, Contact with and (suspected) exposure to other viral communicable diseases (ICD-10 - Z20.828) [facility] Other 10-11-2021 Evaluation note* Encounter Date Diagnosis Assessment Notes Treatment Notes Treatment Clinical Notes Feb, Encntr for general adult medical exam w/o abnormal findings (ICD-10 - Z00.00) Feb, Other No change today...Continue as is...FU PRN/Yearly... [employer] Other Evaluation noteNo InformationNort [facility]oka.[facility] Other Evaluation note* Diagnosis Third trimester state, incidental documented in this encounter [facility] N[facility]ative - Reported* Type Description Date Medical History Hx of MRSA Medical History anxiety Surgical History tonsillectomy and adenoidectomy 2012 Surgical History c-sections 2009 and 2016 Hospitalization History C Sections [employer] Other Summary Purpose Family History No Family History Records FoundNo Family History Records FoundNo Family History Records Found Advance Directives No Advanced Directives Records FoundNo Advanced Directives Records FoundNo Advanced Directives Records Found Additional Source Comments INFORMATION SOURCE (unrecogn ized section and content) DATE CREATED AUTHOR 12/19/2020 Neha rick DATE CREATED AUTHOR AUTHOR'S ORGANIZ ATION 08/09/2022 [facility] DATE CREATED AUTHOR AUTHOR'S ORGANIZ ATION 07/10/2023 [facility] EPIC REASON FOR VISIT (unrecogniz ed section and content) Reason Comments Routine Visit Care Teams (unrecognized sec tion and content) [employer] Inspector Relationship Specialty Start Date End Date Urban Santana MD [address] [place] [id number] PCP - General Family Medicine 11/18/22 FOR [...] BE BASED ON THE PRIMARY CLINICAL RECORDS. [facility] [employer] [facility]. provides no warranty or guarantee of the accuracy or completeness of information in this document.
[2023-07-21 17:12] VITALS: BP 127/70; PULSE 100
--- NOTE | 2023-07-21 17:31 | US_ITS ---
[address] [address] Patient Name: JARVIS MACEDO MRN: [id number] date: 1995 Sex: F Assigned Patient Location: US Current Patient Location: US Accession/Order Number: [id number] Exam Date: 07/21/2023 17:40 Report Date: 07/22/2023 07:20 At the request of: TALITA LEARY Procedure: US OB growth EXAMINATION: US OB growth HISTORY: SIZE INCONSISTENT WITH DATES O26.849 COMPARISON: 06/24/2023 FINDINGS: Heart Rate: 128.6 bpm Amniotic Fluid Volume: 10.7 cm Number: 1.0 Position: Cephalic presentation, longitudinal lie Maximum Vertical Pocket: 3.0 cm cm 1.5 cm cm 2.2 cm cm 3.9 cm cm BIOMETRY: BPD: 9.8 cm cm; 40 weeks 2 days; > 97% HC: 36.1 cmcm; >97% AC: 33.9 cm cm; 37 weeks 5 days, 90% FL: 7.2 cm cm; 36 weeks 5 days; 55.7 % % EFW: 3469.0 grams, 7 lb 10 oz, 94% FL/AC: 21.2 FL/BPD: 72.9 HC/AC: 1.1 GESTATIONAL AGE: Age by EDC: 36 weeks 3 days TONJA by EDC: 08/15/2023 Age by US: 38 weeks 2 days TONJA by US: 08/02/2023 US/US OB growth IMPRESSION: BPD and head circumference above the 97th percentile Estimated weight at the 94th percentile Electronically authenticated by: REBEL FRANK Date: 07/22/2023 07:20
--- NOTE | 2023-07-21 17:33 | US_ITS ---
[address] [address] Patient Name: JARVIS MACEDO MRN: [id number] date: 1995 Sex: F Assigned Patient Location: US Current Patient Location: Accession/Order Number: [id number] Exam Date: 07/21/2023 17:40 Report Date: 07/22/2023 07:17 At the request of: TALITA LEARY Procedure: US OB BPP w non-stress EXAMINATION: US OB BPP w non-stress HISTORY: EXCESSIVE GROWTH O36.63X0 COMPARISON: No relevant comparison available. TECHNIQUE: Ultrasound biophysical profile was performed in the radiology department. FINDINGS: BREATHING MOVEMENTS: 2.0 GROSS BODY MOVEMENTS: 2.0 TONE: 2.0 QUALITATIVE AMNIOTIC FLUID VOLUME: 2.0 PRESENTATION: CEPHALIC HEART RATE: 128.6 bpm H.B./min AMNIOTIC FLUID VOLUME: 10.7 cm cm GESTATIONAL AGE: 36 weeks 3 days CONCLUSION: Total biophysical profile score: 8.0 Electronically authenticated by: REBEL FRANK Date: 07/22/2023 07:17
== END 2023-07-21 18:18 | disposition home or self-care (01) ==
LOC: US 07:31 → FBC 17:02
PROVIDERS: PCP Family Medicine; Visit Provider Obstetrics & Gynecology
DX: O26.843 Uterine size-date discrepancy, third trimester (principal); Z3A.36 36 weeks gestation of pregnancy; Z34.93 Encounter for supervision of normal pregnancy, unspecified, third trimester
CPT/HCPCS: 36415; 76816; 76818; 85025

== ENCOUNTER 2023-07-21 08:46 | Outpatient (OUT) | payer BC, OTHER, SELFPAY ==
--- OUTSIDE RECORDS SUMMARY | 2023-07-21 09:06 | XMS_ITS | CCD ---
Author Name Unknown Address [facility] [address] [place] [id number] Organization [facility] Care Team Providers Care Licensed Practical Nurse Name Role Phone TARYN, DR GA Primary [...] Unavailable Urban Santana MD Primary Care Provider ARPITA GUSMAN Attending Unavailable ARPITA GUSMAN Attending [...] Negative Negative - 4(70) +++ mg/dL [facility] Blood, UA Negative Negative - 50 Rodriguez/mcL [facility] Clarity, UA Clear [facility] Color, UA Yellow [facility] Glucose, UA Negative Negative - 2000(110) ++++ mg/dL [facility] Interpretation and review of laboratory results Abnormal [facility] Ketones, UA Negative Negative - 160(16) ++++ mg/dL [facility] Leukocytes, UA Positive Negative - 500+++ Dg/mcL [facility] Nitrite, UA Negative Negative - Positive [facility] pH, UA 5.5 5 - 9 [facility] Protein, UA Negative Negative - 1999(20) ++++ mg/dL [facility] Spec Grav, UA 1.015 1 - 1.03 [facility] Urobilinogen, UA 1.0 0.2 - 12 mg/dL [facility] Urine Cultureon 08-07-2022 Urine Culture >100,000 [facility] Other Urine Culture <16 Susceptible [employer] Other Urine Culture <8/4 Susceptible [employer] Other Urine Culture >16 Resistant [facility] Other Urine Culture <4 Susceptible [employer] Other Urine Culture <2 Susceptible [employer] Other Urine Culture <1 Susceptible [employer] Other Urine Culture <0.25 Susceptible [employer] Other Urine Culture <0.5 Susceptible [employer] Other Urine Culture >8 Resistant [facility] Other Urine Culture <32 Susceptible [employer] Other Urine Culture 4 Susceptible [employer] Other Urine Culture >2/38 Resistant [facility] Other Bacteria identified Cx Nom (U) Reason for Exam Dysuria Urine Reason for Exam: Dysuria : Urine ORGANISM: Escherichia coli (O:ESCCOL) [place] Count >100,000 Aerobic REMY Charge (NMIC56) ------ [...] RESISTANT TO ALL B-LACTAM DRUGS. PERFORMED BY: [place] [address] PATHOLOGIST NUT SHELLER ROBERT WEBB M.D. [facility] Comment on above: Performed By: #### C UU #### [address] SARS-CoV-2 (COVID-19) RNA NA A+probe Ql (Resp)on 02-13-2022 SARS-CoV-2 (COVID-19) RNA CLAY+probe Ql (Unsp spec) Positive [facility] Other SARS-CoV-2 (COVID-19) RNA NA A+probe Ql (Resp)on 02-11-2022 SARS-CoV-2 (COVID-19) RNA CLAY+probe Ql (Unsp spec) Negative [facility] Other SARS-CoV-2 (COVID-19) RNA NA A+probe Ql (Resp)on 01-12-2022 SARS-CoV-2 (COVID-19) RNA CLAY+probe Ql (Unsp spec) Negative [facility] Other Employee Comp Metabolic Kokoe jakob 01-07-2022 Albumin [Mass/Vol] 4.0 g/dL Normal 3.2-5.5 [facility] Comment on above: Performed By: #### P ILLAR LIPID, PILLAR TSH, PILLAR CBC, PILLAR CMP #### [facility] [address] [place] [address] [place] #### NICOTINE QUAL #### [facility] , Albumin/Globulin [Mass ratio] 1.4 {ratio} Normal [facility] Comment on above: Performed By: #### P ILLAR LIPID, PILLAR TSH, PILLAR CBC, PILLAR CMP #### [facility] [address] [place] [address] #### NICOTINE QUAL #### [facility] , ALP [Catalytic activity/Vol] 72 U/L Normal 32-[address] [facility] Comment on above: Performed By: #### P ILLAR LIPID, PILLAR TSH, PILLAR CBC, PILLAR CMP #### [facility] [address] [place] [address] [place] #### NICOTINE QUAL #### [facility] , ALT [Catalytic activity/Vol] 20 U/L Normal 10-[address] [facility] Comment on above: Performed By: #### P ILLAR LIPID, PILLAR TSH, PILLAR CBC, PILLAR CMP #### [facility] [address] [place] [address] [place] #### NICOTINE QUAL #### [facility] , AST [Catalytic activity/Vol] 23 U/L Normal 10-[address] [facility] Comment on above: Performed By: #### P ILLAR LIPID, PILLAR TSH, PILLAR CBC, PILLAR CMP #### [facility] [address] [place] [address] [place] #### NICOTINE QUAL #### [facility] , Bilirubin [Mass/Vol] 0.4 mg/dL Normal 0.3-1.2 [facility] Comment on above: Performed By: #### P ILLAR LIPID, PILLAR TSH, PILLAR CBC, PILLAR CMP #### [facility] [address] [place] [address] [place] #### NICOTINE QUAL #### [facility] , Calcium [Mass/Vol] 9.6 mg/dL Normal 8.2-10.2 [facility] Comment on above: Performed By: #### P ILLAR LIPID, PILLAR TSH, PILLAR CBC, PILLAR CMP #### [facility] [address] [place] [address] [place] #### NICOTINE QUAL #### [facility] , Chloride [Moles/Vol] 101 mmol/L Normal 95-114 [facility] Comment on above: Performed By: #### P ILLAR LIPID, PILLAR TSH, PILLAR CBC, PILLAR CMP #### [facility] [address] [place] [address] [place] #### NICOTINE QUAL #### [facility] , CO2 [Moles/Vol] 24.9 mmol/L Normal 22.0-30.0 [facility] Comment on above: Performed By: #### P ILLAR LIPID, PILLAR TSH, PILLAR CBC, PILLAR CMP #### [facility] [address] [place] [address] [place] #### NICOTINE QUAL #### [facility] , Creatinine [Mass/Vol] 0.72 mg/dL Normal 0.44-1.[address] [facility] Comment on above: Performed By: #### P ILLAR LIPID, PILLAR TSH, PILLAR CBC, PILLAR CMP #### [facility] [address] [place] [address] [place] #### NICOTINE QUAL #### [facility] , Estimated GFR ( Katelin > [address] [facility] Comment on above: Result Comment: GFR estimated reference range: According to KDOQI guidelines, <60 ml/min/1.73m2 is sufficient to diagnose a patient with chronic kidney disease. Performed By: #### P ILLAR LIPID, PILLAR TSH, PILLAR CBC, PILLAR CMP #### [facility] [address] [place] [address] [place] #### NICOTINE QUAL #### [facility] , Estimated GFR (Non- Am > [address] [facility] Comment on above: Performed By: #### P ILLAR LIPID, PILLAR TSH, PILLAR CBC, PILLAR CMP #### [place] [address] [place] #### NICOTINE QUAL #### [facility] , Globulin (S) [Mass/Vol] 2.8 g/dL Normal [facility] Comment on above: Performed By: #### P ILLAR LIPID, PILLAR TSH, PILLAR CBC, PILLAR CMP #### [place] [address] [place] #### NICOTINE QUAL #### [facility] , Glucose [Mass/Vol] 91 mg/dL Normal 70-100 [facility] Comment on above: Performed By: #### P ILLAR LIPID, PILLAR TSH, PILLAR CBC, PILLAR CMP #### [place] [address] [place] #### NICOTINE QUAL #### [facility] , Potassium [Moles/Vol] 4.3 mmol/L Normal 3.5-5.[address] [facility] Comment on above: Performed By: #### P ILLAR LIPID, PILLAR TSH, PILLAR CBC, PILLAR CMP #### [facility] [address] [place] [address] [place] #### NICOTINE QUAL #### [facility] , Protein [Mass/Vol] 6.8 g/dL Normal 6.1-7.9 [facility] Comment on above: Performed By: #### P ILLAR LIPID, PILLAR TSH, PILLAR CBC, PILLAR CMP #### [place] [address] [place] #### NICOTINE QUAL #### [facility] , Sodium [Moles/Vol] 134 mmol/L Low 136-146 [facility] Comment on above: Performed By: #### P ILLAR LIPID, PILLAR TSH, PILLAR CBC, PILLAR CMP #### [facility] [address] [place] [address] #### NICOTINE QUAL #### [facility] , Urea nitrogen [Mass/Vol] 10 mg/dL Normal 9-[address] [facility] Comment on above: Performed By: #### P ILLAR LIPID, PILLAR TSH, PILLAR CBC, PILLAR CMP #### [facility] [address] [place] [address] #### NICOTINE QUAL #### [facility] , Employee Complete Blood Coun ton 01-07-2022 Basophils (Bld) [#/Vol] 0.0 10*3/uL Normal 0.0-0.[address] [facility] Comment on above: Result Comment: PERF ORMED BY: [place] [address] PATHOLOGIST NUT SHELLER ROBERT WEBB M.D. Performed By: #### P ILLAR LIPID, PILLAR TSH, PILLAR CBC, PILLAR CMP #### [address] #### NICOTINE QUAL #### [facility] , Basophils/100 WBC (Bld) 0.5 % Normal . [facility] Comment on above: Performed By: #### P ILLAR LIPID, PILLAR TSH, PILLAR CBC, PILLAR CMP #### [facility] [address] [place] [address] [place] #### NICOTINE QUAL #### [facility] , Eosinophils (Bld) [#/Vol] 0.1 10*3/uL Normal 0.0-0.[address] [facility] Comment on above: Performed By: #### P ILLAR LIPID, PILLAR TSH, PILLAR CBC, PILLAR CMP #### [place] [address] [place] #### NICOTINE QUAL #### [facility] , Eosinophils/100 WBC (Bld) 1.2 % Normal . [facility] Comment on above: Performed By: #### P ILLAR LIPID, PILLAR TSH, PILLAR CBC, PILLAR CMP #### [facility] [address] [place] [address] [place] #### NICOTINE QUAL #### [facility] , Erythrocyte distribution width (RBC) [Ratio] 16.0 % High 11.9-15.[address] [facility] Comment on above: Performed By: #### P ILLAR LIPID, PILLAR TSH, PILLAR CBC, PILLAR CMP #### [address] #### NICOTINE QUAL #### [facility] , Hematocrit (Bld) [Volume fraction] 38.7 % Normal 34.0-46.[address] [facility] Comment on above: Performed By: #### P ILLAR LIPID, PILLAR TSH, PILLAR CBC, PILLAR CMP #### [facility] [address] [place] [address] [place] #### NICOTINE QUAL #### [facility] , Hemoglobin (Bld) [Mass/Vol] 12.7 g/dL Normal 11.8-15.[address] [facility] Comment on above: Performed By: #### P ILLAR LIPID, PILLAR TSH, PILLAR CBC, PILLAR CMP #### [place] [address] [place] #### NICOTINE QUAL #### [facility] , Lymphocytes (Bld) [#/Vol] 2.8 10*3/uL Normal 1.00-4.[address] [facility] Comment on above: Performed By: #### P ILLAR LIPID, PILLAR TSH, PILLAR CBC, PILLAR CMP #### [facility] [address] [place] [address] [place] #### NICOTINE QUAL #### [facility] , Lymphocytes/100 WBC (Bld) 40.3 % Normal . [facility] Comment on above: Performed By: #### P ILLAR LIPID, PILLAR TSH, PILLAR CBC, PILLAR CMP #### [facility] [address] [place] [address] #### NICOTINE QUAL #### [facility] , MCH (RBC) [Entitic mass] 27.5 pg Normal 24.7-34.[address] [facility] Comment on above: Performed By: #### P ILLAR LIPID, PILLAR TSH, PILLAR CBC, PILLAR CMP #### [facility] [address] [place] [address] #### NICOTINE QUAL #### [facility] , MCV (RBC) [Entitic vol] 84.2 fL Normal 80-[address] [facility] Comment on above: Performed By: #### P ILLAR LIPID, PILLAR TSH, PILLAR CBC, PILLAR CMP #### [address] #### NICOTINE QUAL #### [facility] , Mean Corpuscular HGB Conc 32.7 g/dL Normal 32.0-35.[address] [facility] Comment on above: Performed By: #### P ILLAR LIPID, PILLAR TSH, PILLAR CBC, PILLAR CMP #### [facility] [address] [place] [address] [place] #### NICOTINE QUAL #### [facility] , Monocytes (Bld) [#/Vol] 0.3 10*3/uL Normal 0.0-0.[address] [facility] Comment on above: Performed By: #### P ILLAR LIPID, PILLAR TSH, PILLAR CBC, PILLAR CMP #### [facility] [address] [place] [address] #### NICOTINE QUAL #### [facility] , Monocytes/100 WBC (Bld) 5.0 % Normal . [facility] Comment on above: Performed By: #### P ILLAR LIPID, PILLAR TSH, PILLAR CBC, PILLAR CMP #### [facility] [address] [place] [address] [place] #### NICOTINE QUAL #### [facility] , Neutrophils (Bld) [#/Vol] 3.7 10*3/uL Normal 1.8-7.[address] [facility] Comment on above: Performed By: #### P ILLAR LIPID, PILLAR TSH, PILLAR CBC, PILLAR CMP #### [facility] [address] [place] [address] #### NICOTINE QUAL #### [facility] , Neutrophils/100 WBC (Bld) 53.0 % Normal . [facility] Comment on above: Performed By: #### P ILLAR LIPID, PILLAR TSH, PILLAR CBC, PILLAR CMP #### [facility] [address] [place] [address] [place] #### NICOTINE QUAL #### [facility] , Nucleated RBC/100 WBC (Bld) [Ratio] 0.1 % Normal 0-0.[address] [facility] Comment on above: Performed By: #### P ILLAR LIPID, PILLAR TSH, PILLAR CBC, PILLAR CMP #### [facility] [address] [place] [address] #### NICOTINE QUAL #### [facility] , Platelet mean volume (Bld) [Entitic vol] 7.8 fL Normal 6.3-10.[address] [facility] Comment on above: Performed By: #### P ILLAR LIPID, PILLAR TSH, PILLAR CBC, PILLAR CMP #### [facility] [address] [place] [address] [place] #### NICOTINE QUAL #### [facility] , Platelets (Bld) [#/Vol] 297 10*3/uL Normal 150-[address] [facility] Comment on above: Performed By: #### P ILLAR LIPID, PILLAR TSH, PILLAR CBC, PILLAR CMP #### [place] [address] [place] #### NICOTINE QUAL #### [facility] , RBC (Bld) [#/Vol] 4.60 10*6/uL Normal 3.60-5.00 [facility] Comment on above: Performed By: #### P ILLAR LIPID, PILLAR TSH, PILLAR CBC, PILLAR CMP #### [place] [address] [place] #### NICOTINE QUAL #### [facility] , WBC (Bld) [#/Vol] 6.9 10*3/uL Normal 4.5-11.0 [facility] Comment on above: Performed By: #### P ILLAR LIPID, PILLAR TSH, PILLAR CBC, PILLAR CMP #### [address] #### NICOTINE QUAL #### [facility] , Employee Lipid Profileon Cholesterol [Mass/Vol] 163 mg/dL Normal 140-[address] [facility] Comment on above: Result Comment: Chol less than 200 mg/dl low risk Chol 201-239 mg/dl borderline risk Chol 240 mg/dl and greater high risk Performed By: #### P ILLAR LIPID, PILLAR TSH, PILLAR CBC, PILLAR CMP #### [place] [address] [place] #### NICOTINE QUAL #### [facility] , Cholesterol in HDL [Mass/Vol] 57 mg/dL Normal 35-[address] [facility] Comment on above: Result Comment: HDL CHOL ATP-III CLASSIFICATION Cardiovascular Risk HDL > or equal to 60 mg/dL LOW HDL < 40 mg/dL HIGH Performed By: #### P ILLAR LIPID, PILLAR TSH, PILLAR CBC, PILLAR CMP #### [place] [address] [place] #### NICOTINE QUAL #### [facility] , Cholesterol.total/Ch olesterol in HDL [Mass ratio] 2.9 {ratio} Normal <5.[address] [facility] Comment on above: Performed By: #### P ILLAR LIPID, PILLAR TSH, PILLAR CBC, PILLAR CMP #### [facility] [address] [place] [address] #### NICOTINE QUAL #### [facility] , LDL Cholesterol,Calculat ed 99 mg/dL Normal 0-[address] [facility] Comment on above: Result Comment: LDL ATP III CLASSIFICATION LDL less than 100 mg/dL Optimal LDL 100-129 mg/dL Near or above optimal LDL 130-159 mg/dL Borderline high LDL 160-189 mg/dL High LDL greater than 189 mg/dL Very high Performed By: #### P ILLAR LIPID, PILLAR TSH, PILLAR CBC, PILLAR CMP #### [address] #### NICOTINE QUAL #### [facility] , Triglyceride w/Reflex 34 mg/dL Low 35-[address] [facility] Comment on above: Result Comment: TRIG ATP III CLASSIFICATION TRIG less than 150 mg/dL Normal TRIG 150-199 mg/dL Borderline high TRIG 200-500 mg/dL High TRIG greater than 500 mg/dL Very high Standard traceable to the Center for Disease Conrtrol and Prevention (CDC) test method. Performed By: #### P ILLAR LIPID, PILLAR TSH, PILLAR CBC, PILLAR CMP #### [place] [address] [place] #### NICOTINE QUAL #### [facility] , VLDL CHOLESTEROL 6 mg/dL Normal [facility] Comment on above: Performed By: #### P ILLAR LIPID, PILLAR TSH, PILLAR CBC, PILLAR CMP #### [facility] [address] [place] [address] [place] #### NICOTINE QUAL #### [facility] , Employee Thyroid Stim Hormon jason 01-07-2022 Employee Thyroid Stim Hormone 2.14 u[iU]/mL Normal 0.45-5.[address] [facility] Comment on above: Result Comment: PERF ORMED BY: [place] [address] PATHOLOGIST NUT SHELLER ROBERT WEBB M.D. Performed By: #### P ILLAR LIPID, PILLAR TSH, PILLAR CBC, PILLAR CMP #### [address] #### NICOTINE QUAL #### [facility] , Nicotine Metabolite, Qualon 01-07-2022 Nicotine Metabolite Negative Normal Cutoff=25 [facility] Comment on above: Result Comment: Perf ormed at: - [facility] [address] [id number] [employer]: Josh Ortez MD, Phone: [phone] PERFORMED BY: [place] [address] PATHOLOGIST NUT SHELLER ROBERT WEBB M.D. Performed By: #### P ILLAR LIPID, PILLAR TSH, PILLAR CBC, PILLAR CMP #### [address] #### NICOTINE QUAL #### [facility] , [...] by: JACKIE WILLETT Date: 2020-12-16 14:53 Normal [facility] Vital Signs Date Time Vital Sign Value Performing Clinician Facility 07-08-2023 13:27-0500 Body mass index (BMI) [Ratio] 38.51 kg/m2 Arpita GARDNER Work Phone: [facility] 07-08-2023 13:27-0500 Body weight 116.57 kg Arpita Gusman KENDRA Work Phone: [facility] 07-08-2023 13:27-0500 Diastolic blood pressure 70 mm[Hg] Arpita Gusman KENDRA Work Phone: [facility] 07-08-2023 13:27-0500 Systolic blood pressure 112 mm[Hg] Arpita Gusman KENDRA Work Phone: [facility] 03-01-2022 09:00-0400 Body height 175.26 cm Urban Max Other [facility] Other 03-01-2022 09:00-0400 Body mass index (BMI) [Ratio] 33.81 kg/m2 Urban Max Other [facility] Other 03-01-2022 09:00-0400 Body temperature 97.9 [degF] Urban Max Other [facility] Other 03-01-2022 09:00-0400 Body weight 103.87 kg Urban Max Other [facility] Other 03-01-2022 09:00-0400 Diastolic blood pressure 80 mm[Hg] Urban Max Other [facility] Other 03-01-2022 09:00-0400 Respiratory rate 20 /min Urban Max Other [facility] Other 03-01-2022 09:00-0400 SaO2% (BldA) [Mass fraction] 97 % Urban Max Other [facility] Other 03-01-2022 09:00-0400 Systolic blood pressure 118 mm[Hg] Urban Max Other [facility] Other 01-18-2022 09:45-0400 Body height 175.26 cm Urban Max Other [facility] Other 01-18-2022 09:45-0400 Body mass index (BMI) [Ratio] 32.93 kg/m2 Urban Max Other [facility] Other 01-18-2022 09:45-0400 Body temperature 97.3 [degF] Urban Max Other [facility] Other 01-18-2022 09:45-0400 Body weight 101.15 kg Urban Max Other [facility] Other 01-18-2022 09:45-0400 Diastolic blood pressure 72 mm[Hg] Urban Max Other [facility] Other 01-18-2022 09:45-0400 Respiratory rate 20 /min Urban Max Other [facility] Other 01-18-2022 09:45-0400 SaO2% (BldA) [Mass fraction] 98 % Urban Max Other [facility] Other 01-18-2022 09:45-0400 Systolic blood pressure 112 mm[Hg] Urban Max Other [facility] Other 03-05-2021 16:15-0400 Body height 175.26 cm Urban Max Other [facility] Other 03-05-2021 16:15-0400 Body mass index (BMI) [Ratio] 35.14 kg/m2 Urban Max Other [facility] Other 03-05-2021 16:15-0400 Body weight 107.96 kg Urban Max Other [facility] Other 03-05-2021 16:15-0400 Diastolic blood pressure 68 mm[Hg] Urban Max Other [facility] Other 03-05-2021 16:15-0400 Respiratory rate 20 /min Urban Max Other [facility] Other 03-05-2021 16:15-0400 SaO2% (BldA) [Mass fraction] 98 % Urban Max Other [facility] Other 03-05-2021 16:15-0400 Systolic blood pressure 110 mm[Hg] Urban Max Other [facility] Other Encounters Encounter Date Encounter Type Care [...] 09-10-2022 End: 09-10-2022 ambulatory Susanne Huitron Other [facility] Other Start: 09-10-2022 Telephone encounter Susanne Soraidaarchel Perez [facility] Start: 08-21-2022 End: 08-21-2022 ambulatory Dontrell Gallegos Other [facility] Other Start: 08-21-2022 Telephone encounter Dontrell Perez [facility] Start: 08-09-2022 End: 08-09-2022 ambulatory Urban Max Other [facility] Other Start: 08-09-2022 Telephone encounter Urban Max [facility] Start: 08-07-2022 End: 08-07-2022 ambulatory Urban M. Max Facility:[facility] Start: 08-06-2022 End: 08-06-2022 ambulatory Urban Max Other [facility] Other Start: 08-06-2022 Telephone encounter Urban Max [facility] Start: 03-26-2022 End: 03-26-2022 ambulatory Urban Max Other [facility] Other Start: 03-26-2022 Telephone encounter Urban Max [facility] Start: 03-01-2022 End: 03-01-2022 ambulatory Urban Max Other [facility] Other Start: 03-01-2022 Encounter for genera l adult medical examination without abnormal findings Urban Max [facility] Start: 03-01-2022 Periodic preventive med est patient 18-39 yrs Urban Max [facility] Start: 02-13-2022 End: 02-13-2022 ambulatory Georgie Disla Other [facility] Other Start: 09-21-2022 Nursing evaluation o f patient and report Georgie Disla [facility] Start: 02-11-2022 End: 02-11-2022 ambulatory Georgie Disla Other [facility] Other Start: 02-11-2022 Nursing evaluation o f patient and report Georgie Disla [facility] Start: 01-18-2022 End: 01-18-2022 ambulatory Urban Max Other [facility] Other Start: 01-18-2022 Office outpatient visit 15 minutes Urban Max [facility] Start: 01-12-2022 End: 01-12-2022 ambulatory Georgie Disla Other [facility] Other Start: 01-12-2022 Nursing evaluation o f patient and report Georgie Disla [facility] Start: 01-07-2022 End: 01-07-2022 ambulatory Asim Garber Facility:[facility] Start: 03-05-2021 Encounter for genera l adult medical examination without abnormal findings Urban Max [facility] Start: 03-05-2021 Periodic preventive med est patient 18-39 yrs Urban Max [facility] Start: 12-16-2020 End: 12-16-[address] DOCTOR RAMIREZ Facility:[facility] Procedures Date Procedure Procedure Detail Performing Clinician Start: 07-08-2023 Urnls dip stick/tabl et rgnt non-auto w/o micrscp Arpita GARDNER Work Phone: Start: 08-07-2022 Piperacillin/tazobactam Urban Max Other Plan of Treatment Date Care Activity Detail Author Start: 01-24-2023 Influenza vaccination Influenza Vacc ine (#1) [facility] Immunizations Immunization Date Immunization Notes Care Provider Serjio bya 02-27-2021 influenza, seasonal, injectable Urban Max Other [facility] Other 02-29-2020 influenza, injectable, quadrivalent, contains preservative Urban Max Other [facility] Other 02-29-2020 influenza virus vaccine, unspecified formulation Arpita GARDNER Work Phone: [facility] 02-07-2020 influenza, injectable, quadrivalent, contains preservative Patient Objection Urban Max Other [facility] Other NEGATED: Highlighted row has not occurred!02-07-2020 influenza, injectable, quadrivalent, contains preservative Patient Objection Georgie Disla Other [facility] Other Payers Date Payer Category Payer Medicaid [facility] [employer] [place] [id number] 2023-Present [address] [place] [address] [id number] 2022 Medicaid [id number] [address] [employer]US [id number] 2022-Present [address] [place] [address] [id number] 2022 Unknown [id number] 2021 Self-pay 1994 Unknown [id number] 1994 Unknown [id number] 1994 Unknown [id number] 1994 Unknown [id number] 1994 Unknown [id number] 1994 Unknown [id number] 1959 Unknown [id number] Unknown [id number] Unknown [id number] Social History Date Type Detail Facility Unknown if ever smoked [facility] [employer] Other Start: 12-03-2022 Sex Assigned At N [facility] [employer] Other Start: 12-01-2022 Tobacco smoking status NJIS Never smoked tobacco [facility] Start: 07-08-2023 Alcohol intake Current drinke r of alcohol (finding) [facility] Start: 12-03-2022 History of Social function [facility] Start: 12-01-2022 Alcohol Comment occasional [facility] Start: 11-22-2022 [facility] Start: 1995 Sex Assigned At Not on file N [facility] Clinical Notes 03-05-2021 to 07-08-2023 KENDRA [...] KENDRA Palencia documented in this encounter [facility] 08-21-2022 Evaluation note Encounter Date Diagnosis Assessment Notes Jul, Acute non-recurrent frontal sinusitis (ICD-10 - J01.10) [facility] Other 03-14-2023 Evaluation note* Encounter Date Diagnosis Assessment Notes Treatment Notes Treatment Clinical Notes Jul, Dysuria (ICD-10 - R30.0) [facility] Other 11-01-2022 Evaluation note* Encounter Date Diagnosis Assessment Notes Treatment Notes Treatment Clinical Notes Mar, Anxiety (ICD-10 - F41.9) [facility] Other 10-07-2022 Evaluation note* Encounter Date Diagnosis Assessment Notes Treatment Notes Treatment Clinical Notes Feb, Encntr for general adult medical exam w/o abnormal findings (ICD-10 - Z00.00) Feb, Other No change today...Continue as is...FU 6 months.... [facility] Other 09-21-2022 Evaluation note* Encounter Date Diagnosis Assessment Notes Treatment Notes Treatment Clinical Notes Jan, Contact with and (suspected) exposure to other viral communicable diseases (ICD-10 - Z20.828) [facility] Other 09-19-2022 Evaluation note* Encounter Date Diagnosis Assessment Notes Treatment Notes Treatment Clinical Notes Jan, Contact with and (suspected) exposure to other viral communicable diseases (ICD-10 - Z20.828) [facility] Other 08-26-2022 Evaluation note* Encounter Date Diagnosis Assessment Notes Treatment Notes Treatment Clinical Notes Dec, Anxiety (ICD-10 - F41.9) E Rx sent. Lengthy discussion with patient that I think we need to try something than just a straight SSRI. We will see patient back in review. We talked about potential side effects as well as outcomes. She will call with any concerns. [facility] Other 08-20-2022 Evaluation note* Encounter Date Diagnosis Assessment Notes Treatment Notes Treatment Clinical Notes Dec, Contact with and (suspected) exposure to other viral communicable diseases (ICD-10 - Z20.828) [facility] Other 10-11-2021 Evaluation note* Encounter Date Diagnosis Assessment Notes Treatment Notes Treatment Clinical Notes Feb, Encntr for general adult medical exam w/o abnormal findings (ICD-10 - Z00.00) Feb, Other No change today...Continue as is...FU PRN/Yearly... [facility] Other Evaluation noteNo InformationNort [facility] Other Evaluation note* Diagnosis Third trimester state, incidental documented in this encounter [facility] N[facility] - Reported* Type Description Date Medical History Hx of MRSA Medical History anxiety Surgical History tonsillectomy and adenoidectomy 2012 Surgical History c-sections 2009 and 2016 Hospitalization History C Sections [facility] Other Summary Purpose Family History No Family History Records FoundNo Family History Records FoundNo Family History Records Found Advance Directives No Advanced Directives Records FoundNo Advanced Directives Records FoundNo Advanced Directives Records Found Additional Source Comments INFORMATION SOURCE (unrecogn ized section and content) DATE CREATED AUTHOR 12/19/2020 Neha rick DATE CREATED AUTHOR AUTHOR'S ORGANIZ ATION 08/09/2022 [facility] DATE CREATED AUTHOR AUTHOR'S ORGANIZ ATION 07/10/2023 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 [facility] [facility]. provides no warranty or guarantee of the accuracy or completeness of information in this document.
[2023-07-21 09:31] LABS: Basophils Percent Auto 0.3 % (0.2-2.0); Eosinophils Absolute Auto 0.1 10^3/uL (0.0-0.7); Eosinophils Percent Auto 0.6 % (0.9-7.0); Hematocrit 38.1 % (36.0-48.0); Hemoglobin 12.3 g/dL (12.0-16.0); Immature Granulocytes Abs Auto 0.03 10^3/uL (0.00-0.03); Immature Granulocytes Pct Auto 0.3 % (0.0-0.5); Lymphocytes Absolute Auto 2.8 10^3/uL (1.2-3.8); Lymphocytes Percent Auto 25.8 % (20.5-60.0); Mean Corpuscular HGB Conc 32.3 g/dL (29.9-35.2); Mean Corpuscular Hemoglobin 27.9 pg (26.7-34.0); Mean Corpuscular Volume 86.4 fL (81.0-99.0); Mean Platelet Volume 9.8 fL (9.5-13.5); Monocytes Absolute Auto 0.4 10^3/uL (0.3-0.8); Monocytes Percent Auto 4.1 % (1.7-12.0); Neutrophils Absolute Auto 7.4 10^3/uL (1.4-6.5); Neutrophils Percent Auto 68.9 % (43.0-75.0); Platelet Count 220 10^3/uL (150-450); Red Blood Count 4.41 10^6/uL (4.20-5.40); Red Cell Distribution Width 13.4 % (11.0-15.0); White Blood Count 10.7 10^3/uL (4.0-11.0)
== END 2023-07-21 08:47 | disposition home or self-care (01) ==
LOC: LAB 08:48
PROVIDERS: PCP Family Medicine; Visit Provider Physician Assistant
DX: Z34.93 Encounter for supervision of normal pregnancy, unspecified, third trimester (principal)
CPT/HCPCS: 36415; 85025

== ENCOUNTER 2023-07-22 20:34 | Outpatient (REF) | payer BC, OTHER, SELFPAY ==
--- OUTSIDE RECORDS SUMMARY | 2023-07-22 20:39 | XMS_ITS | CCD ---
Author Name Unknown Address [facility] [address] [place] [id number] Organization [facility] Care Team Providers Care Filter Changing Technician Name Role Phone TARYN, DR GA Primary Care Unavailable MAGUE, DR MAUDE Pathak Admitting Unavailabl e MAGUE, DR MAUDE Pathak Consulting Unavailabl e MAGEU, DR MAUDE Pathak Attending UnavailJackie Morrow Unavailable Urban Santana Unavailable Georgie Disla Unavailable Asim Garber Admitting Unavailable Asim Garber Attending Unavailable Urban Santana Primary Care Unavailable Urban Santana Attending Unavailable Urban Santana Admitting Unavailable Urban Santana Primary Care Unavailable Dontrell Gallegos Unavailable Susanne Huitron Unavailable Urban Santana MD Primary Care Provider [phone] ARPITA GUSMAN Attending Unavailable ARPITA GUSMAN Attending [...] UA Negative Negative - 4(70) +++ mg/dL [facility] Blood, UA Negative Negative - 50 Rodriguez/mcL [facility] Clarity, UA Clear [facility] Color, UA Yellow [facility] Glucose, UA Negative Negative - 2000(110) ++++ mg/dL [facility] Interpretation and review of laboratory results Abnormal [facility] Ketones, UA Negative Negative - 160(16) ++++ mg/dL [facility] Leukocytes, UA Positive Negative - 500+++ Dg/mcL [facility] Nitrite, UA Negative Negative - Positive [facility] pH, UA 5.5 5 - 9 [facility] Protein, UA Negative Negative - 1999(20) ++++ mg/dL [facility] Spec Grav, UA 1.015 1 - 1.03 [facility] Urobilinogen, UA 1.0 0.2 - 12 mg/dL [facility] Urine Cultureon 08-07-2022 Urine Culture >100,000 [employer] Other Urine Culture <16 Susceptible [employer] Other Urine Culture <8/4 Susceptible [employer] Other Urine Culture >16 Resistant [employer] Other Urine Culture <4 Susceptible [employer] Other Urine Culture <2 Susceptible [employer] Other Urine Culture <1 Susceptible [employer] Other Urine Culture <0.25 Susceptible [employer] Other Urine Culture <0.5 Susceptible [employer] Other Urine Culture >8 Resistant [employer] Other Urine Culture <32 Susceptible [employer] Other Urine Culture 4 Susceptible [employer] Other Urine Culture >2/38 Resistant [employer] Other Bacteria identified Cx Nom (U) Reason for Exam Dysuria Urine Reason for Exam: Dysuria : Urine ORGANISM: Escherichia coli (O:ESCCOL) [place] Count >100,000 Aerobic REMY Charge (NMIC56) ------ [...] EXTENDED SPECTRUM BETA-LACTAMASE TFG = THYMIDINE-DEPENDENT STRAIN IMCHAEL = BETA-LACTAMASE POSITIVE IB = INDUCIBLE BETA-LACTAMASE. APPEARS IN PLACE OF 'S' WITH SPECIES KNOWN TO POSSESS INDUCIBLE BETA-LACTAMASES. POTENTIALLY THEY MAY BECOME RESISTANT TO ALL B-LACTAM DRUGS. PERFORMED BY: [place] [address] PATHOLOGIST MEDICAL RECORD CLERK ROBERT WEBB M.D. [facility] Comment on above: Performed By: #### C UU #### [address] SARS-CoV-2 (COVID-19) RNA NA A+probe Ql (Resp)on 02-13-2022 SARS-CoV-2 (COVID-19) RNA CLAY+probe Ql (Unsp spec) Positive [facility] Other SARS-CoV-2 (COVID-19) RNA NA A+probe Ql (Resp)on 02-11-2022 SARS-CoV-2 (COVID-19) RNA CLAY+probe Ql (Unsp spec) Negative [employer] Other SARS-CoV-2 (COVID-19) RNA NA A+probe Ql (Resp)on 01-12-2022 SARS-CoV-2 (COVID-19) RNA CLAY+probe Ql (Unsp spec) Negative [employer] Other Employee Comp Metabolic Kokoe jakob 01-07-2022 Albumin [Mass/Vol] 4.0 g/dL Normal 3.2-5.5 [facility] Comment on above: Performed By: #### P ILLAR LIPID, PILLAR TSH, PILLAR CBC, PILLAR CMP #### [facility] [address] [place] [address] [place] #### NICOTINE QUAL #### [facility] , Albumin/Globulin [Mass ratio] 1.4 {ratio} Normal [facility] Comment on above: Performed By: #### P ILLAR LIPID, PILLAR TSH, PILLAR CBC, PILLAR CMP #### [facility] [address] [place] [address] #### NICOTINE QUAL #### [facility] , ALP [Catalytic activity/Vol] 72 U/L Normal 32-92 [facility] Comment on above: Performed By: #### P ILLAR LIPID, PILLAR TSH, PILLAR CBC, PILLAR CMP #### [facility] [address] [place] [address] [place] #### NICOTINE QUAL #### [facility] , ALT [Catalytic activity/Vol] 20 U/L Normal 10-60 [facility] Comment on above: Performed By: #### P ILLAR LIPID, PILLAR TSH, PILLAR CBC, PILLAR CMP #### [facility] [address] [place] [address] [place] #### NICOTINE QUAL #### [facility] , AST [Catalytic activity/Vol] 23 U/L Normal 10-42 [facility] Comment on above: Performed By: #### P ILLAR LIPID, PILLAR TSH, PILLAR CBC, PILLAR CMP #### [facility] [address] [place] [address] [place] #### NICOTINE QUAL #### [facility] , Bilirubin [Mass/Vol] 0.4 mg/dL Normal 0.3-1.2 [facility] Comment on above: Performed By: #### P ILLAR LIPID, PILLAR TSH, PILLAR CBC, PILLAR CMP #### [facility] [address] [place] [address] [place] #### NICOTINE QUAL #### [facility] , Calcium [Mass/Vol] 9.6 mg/dL Normal 8.2-10.2 [facility] Comment on above: Performed By: #### P ILLAR LIPID, PILLAR TSH, PILLAR CBC, PILLAR CMP #### [facility] [address] [place] [address] [place] #### NICOTINE QUAL #### [facility] , Chloride [Moles/Vol] 101 mmol/L Normal 95-114 [facility] Comment on above: Performed By: #### P ILLAR LIPID, PILLAR TSH, PILLAR CBC, PILLAR CMP #### [facility] [address] [place] [address] [place] #### NICOTINE QUAL #### [facility] , CO2 [Moles/Vol] 24.9 mmol/L Normal 22.0-30.0 [facility] Comment on above: Performed By: #### P ILLAR LIPID, PILLAR TSH, PILLAR CBC, PILLAR CMP #### [facility] [address] [place] [address] [place] #### NICOTINE QUAL #### [facility] , Creatinine [Mass/Vol] 0.72 mg/dL Normal 0.44-1.03 [facility] Comment on above: Performed By: #### P ILLAR LIPID, PILLAR TSH, PILLAR CBC, PILLAR CMP #### [facility] [address] [place] [address] [place] #### NICOTINE QUAL #### [facility] , Estimated GFR ( Katelin > 60 Normal [facility] Comment on above: Result Comment: GFR estimated reference range: According to KDOQI guidelines, <60 ml/min/1.73m2 is sufficient to diagnose a patient with chronic kidney disease. Performed By: #### P ILLAR LIPID, PILLAR TSH, PILLAR CBC, PILLAR CMP #### [facility] [address] [place] [address] [place] #### NICOTINE QUAL #### [facility] , Estimated GFR (Non- Am > 60 Normal [facility] Comment on above: Performed By: #### P ILLAR LIPID, PILLAR TSH, PILLAR CBC, PILLAR CMP #### [place] [address] [place] #### NICOTINE QUAL #### [facility] , Globulin (S) [Mass/Vol] 2.8 g/dL Normal [facility] Comment on above: Performed By: #### P ILLAR LIPID, PILLAR TSH, PILLAR CBC, PILLAR CMP #### [place] [address] [place] #### NICOTINE QUAL #### [facility] , Glucose [Mass/Vol] 91 mg/dL Normal 70-100 [facility] Comment on above: Performed By: #### P ILLAR LIPID, PILLAR TSH, PILLAR CBC, PILLAR CMP #### [place] [address] [place] #### NICOTINE QUAL #### [facility] , Potassium [Moles/Vol] 4.3 mmol/L Normal 3.5-5.1 [facility] Comment on above: Performed By: #### P ILLAR LIPID, PILLAR TSH, PILLAR CBC, PILLAR CMP #### [facility] [address] [place] [address] [place] #### NICOTINE QUAL #### [facility] , Protein [Mass/Vol] 6.8 g/dL Normal 6.1-7.9 [facility] Comment on above: Performed By: #### P ILLAR LIPID, PILLAR TSH, PILLAR CBC, PILLAR CMP #### [place] [address] [place] #### NICOTINE QUAL #### [facility] , Sodium [Moles/Vol] 134 mmol/L Low 136-146 [facility] Comment on above: Performed By: #### P ILLAR LIPID, PILLAR TSH, PILLAR CBC, PILLAR CMP #### [facility] [address] [place] [address] #### NICOTINE QUAL #### [facility] , Urea nitrogen [Mass/Vol] 10 mg/dL Normal 9-23 [facility] Comment on above: Performed By: #### P ILLAR LIPID, PILLAR TSH, PILLAR CBC, PILLAR CMP #### [facility] [address] [place] [address] #### NICOTINE QUAL #### [facility] , Employee Complete Blood Coun ton 01-07-2022 Basophils (Bld) [#/Vol] 0.0 10*3/uL Normal 0.0-0.2 [facility] Comment on above: Result Comment: PERF ORMED BY: [place] [address] PATHOLOGIST MEDICAL RECORD CLERK ROBERT WEBB M.D. Performed By: #### P ILLAR LIPID, PILLAR TSH, PILLAR CBC, PILLAR CMP #### [address] #### NICOTINE QUAL #### [facility] , Basophils/100 WBC (Bld) 0.5 % Normal . [facility] Comment on above: Performed By: #### P ILLAR LIPID, PILLAR TSH, PILLAR CBC, PILLAR CMP #### [facility] [address] [place] [address] [place] #### NICOTINE QUAL #### [facility] , Eosinophils (Bld) [#/Vol] 0.1 10*3/uL Normal 0.0-0.45 [facility] Comment on above: Performed By: #### P ILLAR LIPID, PILLAR TSH, PILLAR CBC, PILLAR CMP #### [place] [address] [place] #### NICOTINE QUAL #### [facility] , Eosinophils/100 WBC (Bld) 1.2 % Normal . [facility] Comment on above: Performed By: #### P ILLAR LIPID, PILLAR TSH, PILLAR CBC, PILLAR CMP #### [facility] [address] [place] [address] [place] #### NICOTINE QUAL #### [facility] , Erythrocyte distribution width (RBC) [Ratio] 16.0 % High 11.9-15.3 [facility] Comment on above: Performed By: #### P ILLAR LIPID, PILLAR TSH, PILLAR CBC, PILLAR CMP #### [address] #### NICOTINE QUAL #### [facility] , Hematocrit (Bld) [Volume fraction] 38.7 % Normal 34.0-46.4 [facility] Comment on above: Performed By: #### P ILLAR LIPID, PILLAR TSH, PILLAR CBC, PILLAR CMP #### [facility] [address] [place] [address] [place] #### NICOTINE QUAL #### [facility] , Hemoglobin (Bld) [Mass/Vol] 12.7 g/dL Normal 11.8-15.4 [facility] Comment on above: Performed By: #### P ILLAR LIPID, PILLAR TSH, PILLAR CBC, PILLAR CMP #### [place] [address] [place] #### NICOTINE QUAL #### [facility] , Lymphocytes (Bld) [#/Vol] 2.8 10*3/uL Normal 1.00-4.8 [facility] Comment on above: Performed By: #### P ILLAR LIPID, PILLAR TSH, PILLAR CBC, PILLAR CMP #### [facility] [address] [place] [address] [place] #### NICOTINE QUAL #### [facility] , Lymphocytes/100 WBC (Bld) 40.3 % Normal . [facility] Comment on above: Performed By: #### P ILLAR LIPID, PILLAR TSH, PILLAR CBC, PILLAR CMP #### [facility] [address] [place] [address] #### NICOTINE QUAL #### [facility] , MCH (RBC) [Entitic mass] 27.5 pg Normal 24.7-34.3 [facility] Comment on above: Performed By: #### P ILLAR LIPID, PILLAR TSH, PILLAR CBC, PILLAR CMP #### [facility] [address] [place] [address] #### NICOTINE QUAL #### [facility] , MCV (RBC) [Entitic vol] 84.2 fL Normal 80-100 [facility] Comment on above: Performed By: #### P ILLAR LIPID, PILLAR TSH, PILLAR CBC, PILLAR CMP #### [address] #### NICOTINE QUAL #### [facility] , Mean Corpuscular HGB Conc 32.7 g/dL Normal 32.0-35.0 [facility] Comment on above: Performed By: #### P ILLAR LIPID, PILLAR TSH, PILLAR CBC, PILLAR CMP #### [facility] [address] [place] [address] [place] #### NICOTINE QUAL #### [facility] , Monocytes (Bld) [#/Vol] 0.3 10*3/uL Normal 0.0-0.8 [facility] Comment on above: Performed By: #### P ILLAR LIPID, PILLAR TSH, PILLAR CBC, PILLAR CMP #### [facility] [address] [place] [address] #### NICOTINE QUAL #### [facility] , Monocytes/100 WBC (Bld) 5.0 % Normal . [facility] Comment on above: Performed By: #### P ILLAR LIPID, PILLAR TSH, PILLAR CBC, PILLAR CMP #### [facility] [address] [place] [address] [place] #### NICOTINE QUAL #### [facility] , Neutrophils (Bld) [#/Vol] 3.7 10*3/uL Normal 1.8-7.7 [facility] Comment on above: Performed By: #### P ILLAR LIPID, PILLAR TSH, PILLAR CBC, PILLAR CMP #### [facility] [address] [place] [address] #### NICOTINE QUAL #### [facility] , Neutrophils/100 WBC (Bld) 53.0 % Normal . [facility] Comment on above: Performed By: #### P ILLAR LIPID, PILLAR TSH, PILLAR CBC, PILLAR CMP #### [facility] [address] [place] [address] [place] #### NICOTINE QUAL #### [facility] , Nucleated RBC/100 WBC (Bld) [Ratio] 0.1 % Normal 0-0.5 [facility] Comment on above: Performed By: #### P ILLAR LIPID, PILLAR TSH, PILLAR CBC, PILLAR CMP #### [facility] [address] [place] [address] #### NICOTINE QUAL #### [facility] , Platelet mean volume (Bld) [Entitic vol] 7.8 fL Normal 6.3-10.7 [facility] Comment on above: Performed By: #### P ILLAR LIPID, PILLAR TSH, PILLAR CBC, PILLAR CMP #### [facility] [address] [place] [address] [place] #### NICOTINE QUAL #### [facility] , Platelets (Bld) [#/Vol] 297 10*3/uL Normal 150-450 [facility] Comment on above: Performed By: #### P ILLAR LIPID, PILLAR TSH, PILLAR CBC, PILLAR CMP #### [place] [address] [place] #### NICOTINE QUAL #### [facility] , RBC (Bld) [#/Vol] 4.60 10*6/uL Normal 3.60-5.00 [facility] [place] [facility] Comment on above: Performed By: #### P ILLAR LIPID, PILLAR TSH, PILLAR CBC, PILLAR CMP #### [place] [address] [place] #### NICOTINE QUAL #### [facility] , WBC (Bld) [#/Vol] 6.9 10*3/uL Normal 4.5-11.0 [facility] Comment on above: Performed By: #### P ILLAR LIPID, PILLAR TSH, PILLAR CBC, PILLAR CMP #### [address] #### NICOTINE QUAL #### [facility] , Employee Lipid Profileon Cholesterol [Mass/Vol] 163 mg/dL Normal 140-200 [facility] Comment on above: Result Comment: Chol less than 200 mg/dl low risk Chol 201-239 mg/dl borderline risk Chol 240 mg/dl and greater high risk Performed By: #### P ILLAR LIPID, PILLAR TSH, PILLAR CBC, PILLAR CMP #### [place] [address] [place] #### NICOTINE QUAL #### [facility] , Cholesterol in HDL [Mass/Vol] 57 mg/dL Normal 35-85 [facility] Comment on above: Result Comment: HDL CHOL ATP-III CLASSIFICATION Cardiovascular Risk HDL > or equal to 60 mg/dL LOW HDL < 40 mg/dL HIGH Performed By: #### P ILLAR LIPID, PILLAR TSH, PILLAR CBC, PILLAR CMP #### [place] [address] [place] #### NICOTINE QUAL #### [facility] , Cholesterol.total/Ch olesterol in HDL [Mass ratio] 2.9 {ratio} Normal <5.0 [facility] Comment on above: Performed By: #### P ILLAR LIPID, PILLAR TSH, PILLAR CBC, PILLAR CMP #### [facility] [address] [place] [address] #### NICOTINE QUAL #### [facility] , LDL Cholesterol,Calculat ed 99 mg/dL Normal 0-100 [facility] Comment on above: Result Comment: LDL ATP III CLASSIFICATION LDL less than 100 mg/dL Optimal LDL 100-129 mg/dL Near or above optimal LDL 130-159 mg/dL Borderline high LDL 160-189 mg/dL High LDL greater than 189 mg/dL Very high Performed By: #### P ILLAR LIPID, PILLAR TSH, PILLAR CBC, PILLAR CMP #### [address] #### NICOTINE QUAL #### [facility] , Triglyceride w/Reflex 34 mg/dL Low 35-149 [facility] Comment on above: Result Comment: TRIG ATP III CLASSIFICATION TRIG less than 150 mg/dL Normal TRIG 150-199 mg/dL Borderline high TRIG 200-500 mg/dL High TRIG greater than 500 mg/dL Very high Standard traceable to the Center for Disease Conrtrol and Prevention (CDC) test method. Performed By: #### P ILLAR LIPID, PILLAR TSH, PILLAR CBC, PILLAR CMP #### [place] [address] [place] #### NICOTINE QUAL #### [facility] , VLDL CHOLESTEROL 6 mg/dL Normal [facility] Comment on above: Performed By: #### P ILLAR LIPID, PILLAR TSH, PILLAR CBC, PILLAR CMP #### [facility] [address] [place] [address] [place] #### NICOTINE QUAL #### [facility] , Employee Thyroid Stim Hormon jason 01-07-2022 Employee Thyroid Stim Hormone 2.14 u[iU]/mL Normal 0.45-5.33 [facility] Comment on above: Result Comment: PERF ORMED BY: [place] [address] PATHOLOGIST MEDICAL RECORD CLERK ROBERT WEBB M.D. Performed By: #### P ILLAR LIPID, PILLAR TSH, PILLAR CBC, PILLAR CMP #### [address] #### NICOTINE QUAL #### [facility] , Nicotine Metabolite, Qualon 01-07-2022 Nicotine Metabolite Negative Normal Cutoff=25 [facility] [place] [facility] Comment on above: Result Comment: Perf ormed at: - [facility] [address] [id number] Public Relations Manager: Josh Otrez MD, Phone: [phone] PERFORMED BY: [place] [address] PATHOLOGIST MEDICAL RECORD CLERK ROBERT WEBB M.D. Performed By: #### P ILLAR LIPID, PILLAR TSH, PILLAR CBC, PILLAR CMP #### [address] #### NICOTINE QUAL #### [facility] , [...] 2020-12-16 14:53 Normal [facility] Vital Signs Date Time Vital Sign Value Performing Clinician Facility 07-08-2023 13:27-0500 Body mass index (BMI) [Ratio] 38.51 kg/m2 Arpita GARDNER Work Phone: [facility] 07-08-2023 13:27-0500 Body weight 116.57 kg Arpita Gusman KENDRA Work Phone: [facility] 07-08-2023 13:27-0500 Diastolic blood pressure 70 mm[Hg] Arpita Gusman KENDRA Work Phone: [facility] 07-08-2023 13:27-0500 Systolic blood pressure 112 mm[Hg] Arpita Gusman KENDRA Work Phone: [facility] 03-01-2022 09:00-0400 Body height 175.26 cm [facility] Other [facility] Other 03-01-2022 09:00-0400 Body mass index (BMI) [Ratio] 33.81 kg/m2 [facility] Other [facility] Other 03-01-2022 09:00-0400 Body temperature 97.9 [degF] [facility] Other [facility] Other 03-01-2022 09:00-0400 Body weight 103.87 kg [facility] Other [facility] Other 03-01-2022 09:00-0400 Diastolic blood pressure 80 mm[Hg] [facility] Other [facility] Other 03-01-2022 09:00-0400 Respiratory rate 20 /min [facility] Other [facility] Other 03-01-2022 09:00-0400 SaO2% (BldA) [Mass fraction] 97 % [facility] Other [facility] Other 03-01-2022 09:00-0400 Systolic blood pressure 118 mm[Hg] [facility] Other [facility] Other 01-18-2022 09:45-0400 Body height 175.26 cm [facility] Other [facility] Other 01-18-2022 09:45-0400 Body mass index (BMI) [Ratio] 32.93 kg/m2 [facility] Other [facility] Other 01-18-2022 09:45-0400 Body temperature 97.3 [degF] [facility] Other [facility] Other 01-18-2022 09:45-0400 Body weight 101.15 kg [facility] Other [facility] Other 01-18-2022 09:45-0400 Diastolic blood pressure 72 mm[Hg] [facility] Other [facility] Other 01-18-2022 09:45-0400 Respiratory rate 20 /min [facility] Other [facility] Other 01-18-2022 09:45-0400 SaO2% (BldA) [Mass fraction] 98 % [facility] Other [facility] Other 01-18-2022 09:45-0400 Systolic blood pressure 112 mm[Hg] [facility] Other [facility] Other 03-05-2021 16:15-0400 Body height 175.26 cm [facility] Other [facility] Other 03-05-2021 16:15-0400 Body mass index (BMI) [Ratio] 35.14 kg/m2 [facility] Other [facility] Other 03-05-2021 16:15-0400 Body weight 107.96 kg [facility] Other [facility] Other 03-05-2021 16:15-0400 Diastolic blood pressure 68 mm[Hg] [facility] Other [facility] Other 03-05-2021 16:15-0400 Respiratory rate 20 /min [facility] Other [facility] Other 03-05-2021 16:15-0400 SaO2% (BldA) [Mass fraction] 98 % [facility] Other [facility] Other 03-05-2021 16:15-0400 Systolic blood pressure 110 mm[Hg] [facility] Other [facility] Other Encounters Encounter Date Encounter Type Care [...] 09-10-2022 End: 09-10-2022 ambulatory Susanne Huitron Other [facility] Other Start: 09-10-2022 Telephone encounter Susanne Soraidarachel Perez [facility] Start: 08-21-2022 End: 08-21-2022 ambulatory Dontrell Gallegos Other [facility] Other Start: 08-21-2022 Telephone encounter Dontrell Perez [facility] Start: 08-09-2022 End: 08-09-2022 ambulatory Urban Max Other [facility] Other Start: 08-09-2022 Telephone encounter Urban [facility] Start: 08-07-2022 End: 08-07-2022 ambulatory Urban M. Max Facility:[facility] Start: 08-06-2022 End: 08-06-2022 ambulatory [facility] Other [facility] Other Start: 08-06-2022 Telephone encounter Urban Max [facility] Start: 03-26-2022 End: 03-26-2022 ambulatory Urban Max Other [facility] Other Start: 03-26-2022 Telephone encounter Urban Max [facility] Start: 03-01-2022 End: 03-01-2022 ambulatory Urban [facility] Other [facility] Other Start: 03-01-2022 Encounter for genera l adult medical examination without abnormal findings Urban Max [facility] Start: 03-01-2022 Periodic preventive med est patient 18-39 yrs Urban [facility] Start: 02-13-2022 End: 02-13-2022 ambulatory Georgie Disla Other [facility] Other Start: 09-21-2022 Nursing evaluation o f patient and report Georgie Disla [facility] Start: 02-11-2022 End: 02-11-2022 ambulatory Georgie Disla Other [facility] Other Start: 02-11-2022 Nursing evaluation o f patient and report Georgie Disla [facility] Start: 01-18-2022 End: 01-18-2022 ambulatory Urban Max Other [facility] Other Start: 01-18-2022 Office outpatient visit 15 minutes Urban Max [facility] Start: 01-12-2022 End: 01-12-2022 ambulatory Georgie Disla Other [facility] Other Start: 01-12-2022 Nursing evaluation o f patient and report Georgie Disla [facility] Start: 01-07-2022 End: 01-07-2022 ambulatory Asim Garber Facility:[facility] Start: 03-05-2021 Encounter for genera l adult medical examination without abnormal findings [facility] Start: 03-05-2021 Periodic preventive med est patient 18-39 yrs Urban [facility] Start: 12-16-2020 End: 12-16-[address] [...] 02-27-2021 influenza, seasonal, injectable [facility] Other [facility] Other 02-29-2020 influenza, injectable, quadrivalent, contains preservative [facility] Other [facility] Other 02-29-2020 influenza virus vaccine, unspecified formulation Arpita GARDNER Work Phone: [facility] 02-07-2020 influenza, injectable, quadrivalent, contains preservative Patient Objection [facility] Other [facility] Other NEGATED: Highlighted row has not occurred!02-07-2020 influenza, injectable, quadrivalent, contains preservative Patient Objection Georgie Disla Other [facility] Other Payers Date Payer Category Payer Medicaid [facility] [employer] [place] [id number] 2023-Present [address] [place] [address] [id number] 2022 Medicaid [id number] [address] [employer] [id number] 2022-Present [address] [place] [address] [id number] 2022 Unknown [id number] 2021 Self-pay 1994 Unknown [id number] 1994 Unknown [id number] 1994 Unknown [id number] 1994 Unknown [id number] 1994 Unknown [id number] 1995 Unknown [id number] 1960 Unknown [id number] Unknown [id number] Unknown [id number] Social History Date Type Detail Facility Unknown if ever smoked [facility] Other Start: 12-03-2022 Sex Assigned At [facility] Other Start: 12-01-2022 Tobacco smoking status UTIS Never smoked tobacco [facility] Start: 07-08-2023 Alcohol intake Current drinke r of alcohol (finding) [facility] Start: 12-03-2022 History of Social function [facility] Start: 12-01-2022 Alcohol Comment occasional [facility] Start: 11-22-2022 [facility] Start: 1995 Sex Assigned At Not on file N [facility] Clinical Notes 03-05-2021 to 07-08-2023 KENDRA [...] of: KENDRA Palencia documented in this encounter [facility] 08-21-2022 Evaluation note Encounter Date Diagnosis Assessment Notes Jul, Acute non-recurrent frontal sinusitis (ICD-10 - J01.10) [facility] 03-14-2023 Evaluation note* Encounter Date Diagnosis Assessment Notes Treatment Notes Treatment Clinical Notes Jul, Dysuria (ICD-10 - R30.0) [facility] 11-01-2022 Evaluation note* Encounter Date Diagnosis Assessment Notes Treatment Notes Treatment Clinical Notes Mar, Anxiety (ICD-10 - F41.9) [facility] 10-07-2022 Evaluation note* Encounter Date Diagnosis Assessment Notes Treatment Notes Treatment Clinical Notes Feb, Encntr for general adult medical exam w/o abnormal findings (ICD-10 - Z00.00) Feb, Other No change today...Continue as is...FU 6 months.... [facility] 09-21-2022 Evaluation note* Encounter Date Diagnosis Assessment Notes Treatment Notes Treatment Clinical Notes Jan, Contact with and (suspected) exposure to other viral communicable diseases (ICD-10 - Z20.828) [facility] 09-19-2022 Evaluation note* Encounter Date Diagnosis Assessment Notes Treatment Notes Treatment Clinical Notes Jan, Contact with and (suspected) exposure to other viral communicable diseases (ICD-10 - Z20.828) [facility] 08-26-2022 Evaluation note* Encounter Date Diagnosis Assessment Notes Treatment Notes Treatment Clinical Notes Dec, Anxiety (ICD-10 - F41.9) E Rx sent. Lengthy discussion with patient that I think we need to try something than just a straight SSRI. We will see patient back in review. We talked about potential side effects as well as outcomes. She will call with any concerns. [facility] 08-20-2022 Evaluation note* Encounter Date Diagnosis Assessment Notes Treatment Notes Treatment Clinical Notes Dec, Contact with and (suspected) exposure to other viral communicable diseases (ICD-10 - Z20.828) [facility] 10-11-2021 Evaluation note* Encounter Date Diagnosis Assessment Notes Treatment Notes Treatment Clinical Notes Feb, Encntr for general adult medical exam w/o abnormal findings (ICD-10 - Z00.00) Feb, Other No change today...Continue as is...FU PRN/Yearly... [facility] Other Evaluation noteNo InformationNort [facility] Other Evaluation note* Diagnosis Third trimester state, incidental [facility] - [facility]* Type Description Date Medical History Hx of MRSA Medical History anxiety Surgical History tonsillectomy and adenoidectomy 2012 Surgical History c-sections 2009 and 2016 Hospitalization History C Sections [facility] Other Summary Purpose Family History No Family History Records FoundNo Family History Records FoundNo Family History Records Found Advance Directives No Advanced Directives Records FoundNo Advanced Directives Records FoundNo Advanced Directives Records Found Additional Source Comments INFORMATION SOURCE (unrecogn ized section and content) DATE CREATED AUTHOR 12/19/2020 Neha rick DATE CREATED AUTHOR AUTHOR'S ORGANIZ ATION 08/09/2022 [facility] DATE CREATED AUTHOR AUTHOR'S ORGANIZ ATION 07/10/2023 [facility] EPIC REASON FOR VISIT (unrecogniz ed section and content) Reason Comments Routine Visit Care Teams (unrecognized sec tion and content) Filter Changing Technician Relationship Specialty Start Date End Date Urban Santana MD [address] [place] [phone] PCP - General Family Medicine 11/18/22 FOR [...] BE BASED ON THE PRIMARY CLINICAL RECORDS. [facility]. provides no warranty or guarantee of the accuracy or completeness of information in this document.
== END 2023-07-22 20:35 | disposition home or self-care (01) ==
LOC: LAB 20:34
PROVIDERS: PCP Family Medicine; Visit Provider Obstetrics & Gynecology
DX: Z34.93 Encounter for supervision of normal pregnancy, unspecified, third trimester (principal)
CPT/HCPCS: 87081

== ENCOUNTER 2023-07-24 07:06 | Outpatient (OUT) | payer BC, OTHER, SELFPAY ==
--- OUTSIDE RECORDS SUMMARY | 2023-07-24 07:09 | XMS_ITS | CCD ---
Author Name Unknown Address [facility] [address] [place] [id number] Organization [facility] Care Team Providers Care Housecalls Nurse Name Role Phone TARYN, DR GA [...] UA Negative Negative - 4(70) +++ mg/dL [facility] Blood, UA Negative Negative - 50 Rodriguez/mcL [facility] Clarity, UA Clear [facility] Color, UA Yellow [facility] Glucose, UA Negative Negative - 2000(110) ++++ mg/dL [facility] Interpretation and review of laboratory results Abnormal [facility] Ketones, UA Negative Negative - 160(16) ++++ mg/dL [facility] Leukocytes, UA Positive Negative - 500+++ Dg/mcL [facility] Nitrite, UA Negative Negative - Positive [facility] pH, UA 5.5 5 - 9 [facility] Health[facility] Protein, UA Negative Negative - 1999(20) ++++ mg/dL [facility] Spec Grav, UA 1.015 1 - 1.03 [facility] Urobilinogen, UA 1.0 0.2 - 12 mg/dL [facility] Health[facility] Urine Cultureon 08-07-2022 Urine Culture >100,000 [employer] Other Urine Culture <16 Susceptible [facility] Other Urine Culture <8/4 Susceptible [facility] Other Urine Culture >16 Resistant [employer] Other Urine Culture <4 Susceptible [facility] Other Urine Culture <2 Susceptible [facility] Other Urine Culture <1 Sus[facility] Other Urine Culture <0.25 Sus[facility] Other Urine Culture <0.5 Susceptible [facility] Other Urine Culture >8 Resistant [employer] Other Urine Culture <32 Sus[facility] Other Urine Culture 4 Susceptible Layer Other Urine Culture >2/38 Resistant [employer] Other Bacteria identified Cx Nom (U) Reason for Exam Dysuria Urine Reason for Exam: Dysuria : Urine ORGANISM: Escherichia coli (O:ESCCOL) [place] Count >100,000 Aerobic REMY Charge (NMIC56) ------ [...] RESISTANT TO ALL B-LACTAM DRUGS. PERFORMED BY: [place] [address] PATHOLOGIST PUBLIC SERVICES LIBRARIAN ROBERT WEBB M.D. [facility] Comment on above: Performed By: #### C UU #### [address] SARS-CoV-2 (COVID-19) RNA NA A+probe Ql (Resp)on 02-13-2022 SARS-CoV-2 (COVID-19) RNA CLAY+probe Ql (Unsp spec) Positive [employer] Other SARS-CoV-2 (COVID-19) RNA NA A+probe Ql (Resp)on 02-11-2022 SARS-CoV-2 (COVID-19) RNA CLAY+probe Ql (Unsp spec) Negative [employer] Other SARS-CoV-2 (COVID-19) RNA NA A+probe Ql (Resp)on 01-12-2022 SARS-CoV-2 (COVID-19) RNA CLAY+probe Ql (Unsp spec) Negative [employer] Other Employee Comp Metabolic Kokoe jakob 01-07-2022 Albumin [Mass/Vol] 4.0 g/dL Normal 3.2-5.5 [facility] Comment on above: Performed By: #### P ILLAR LIPID, PILLAR TSH, PILLAR CBC, PILLAR CMP #### [facility] [address] [place] [address] [place] #### NICOTINE QUAL #### [facility] , Albumin/Globulin [Mass ratio] 1.4 {ratio} Normal [facility] Comment on above: Performed By: #### P ILLAR LIPID, PILLAR TSH, PILLAR CBC, PILLAR CMP #### [facility] [address] [place] [address] #### NICOTINE QUAL #### [facility] , ALP [Catalytic activity/Vol] 72 U/L Normal 32-92 [facility] Comment on above: Performed By: #### P ILLAR LIPID, PILLAR TSH, PILLAR CBC, PILLAR CMP #### [facility] [address] [place] [address] [place] #### NICOTINE QUAL #### [facility] , ALT [Catalytic activity/Vol] 20 U/L Normal 10-60 [facility] Comment on above: Performed By: #### P ILLAR LIPID, PILLAR TSH, PILLAR CBC, PILLAR CMP #### [facility] [address] [place] [address] [place] #### NICOTINE QUAL #### [facility] , AST [Catalytic activity/Vol] 23 U/L Normal 10-42 [facility] Comment on above: Performed By: #### P ILLAR LIPID, PILLAR TSH, PILLAR CBC, PILLAR CMP #### [facility] [address] [place] [address] [place] #### NICOTINE QUAL #### [facility] , Bilirubin [Mass/Vol] 0.4 mg/dL Normal 0.3-1.2 [facility] Comment on above: Performed By: #### P ILLAR LIPID, PILLAR TSH, PILLAR CBC, PILLAR CMP #### [facility] [address] [place] [address] [place] #### NICOTINE QUAL #### [facility] , Calcium [Mass/Vol] 9.6 mg/dL Normal 8.2-10.2 [facility] Comment on above: Performed By: #### P ILLAR LIPID, PILLAR TSH, PILLAR CBC, PILLAR CMP #### [facility] [address] [place] [address] [place] #### NICOTINE QUAL #### [facility] , Chloride [Moles/Vol] 101 mmol/L Normal 95-114 [facility] Comment on above: Performed By: #### P ILLAR LIPID, PILLAR TSH, PILLAR CBC, PILLAR CMP #### [facility] [address] [place] [address] [place] #### NICOTINE QUAL #### [facility] , CO2 [Moles/Vol] 24.9 mmol/L Normal 22.0-30.0 [facility] Comment on above: Performed By: #### P ILLAR LIPID, PILLAR TSH, PILLAR CBC, PILLAR CMP #### [facility] [address] [place] [address] [place] #### NICOTINE QUAL #### [facility] , Creatinine [Mass/Vol] 0.72 mg/dL Normal 0.44-1.03 [facility] Comment on above: Performed By: #### P ILLAR LIPID, PILLAR TSH, PILLAR CBC, PILLAR CMP #### [facility] [address] [place] [address] [place] #### NICOTINE QUAL #### [facility] , Estimated GFR ( Katelin > 60 Normal [facility] Comment on above: Result Comment: GFR estimated reference range: According to KDOQI guidelines, <60 ml/min/1.73m2 is sufficient to diagnose a patient with chronic kidney disease. Performed By: #### P ILLAR LIPID, PILLAR TSH, PILLAR CBC, PILLAR CMP #### [facility] [address] [place] [address] [place] #### NICOTINE QUAL #### [facility] , Estimated GFR (Non- Am > 60 Normal [facility] Comment on above: Performed By: #### P ILLAR LIPID, PILLAR TSH, PILLAR CBC, PILLAR CMP #### [place] [address] [place] #### NICOTINE QUAL #### [facility] , Globulin (S) [Mass/Vol] 2.8 g/dL Normal [facility] Comment on above: Performed By: #### P ILLAR LIPID, PILLAR TSH, PILLAR CBC, PILLAR CMP #### [place] [address] [place] #### NICOTINE QUAL #### [facility] , Glucose [Mass/Vol] 91 mg/dL Normal 70-100 [facility] Comment on above: Performed By: #### P ILLAR LIPID, PILLAR TSH, PILLAR CBC, PILLAR CMP #### [place] [address] [place] #### NICOTINE QUAL #### [facility] , Potassium [Moles/Vol] 4.3 mmol/L Normal 3.5-5.1 [facility] Comment on above: Performed By: #### P ILLAR LIPID, PILLAR TSH, PILLAR CBC, PILLAR CMP #### [facility] [address] [place] [address] [place] #### NICOTINE QUAL #### [facility] , Protein [Mass/Vol] 6.8 g/dL Normal 6.1-7.9 [facility] Comment on above: Performed By: #### P ILLAR LIPID, PILLAR TSH, PILLAR CBC, PILLAR CMP #### [place] [address] [place] #### NICOTINE QUAL #### [facility] , Sodium [Moles/Vol] 134 mmol/L Low 136-146 [facility] Comment on above: Performed By: #### P ILLAR LIPID, PILLAR TSH, PILLAR CBC, PILLAR CMP #### [facility] [address] [place] [address] #### NICOTINE QUAL #### [facility] , Urea nitrogen [Mass/Vol] 10 mg/dL Normal 9-23 [facility] Comment on above: Performed By: #### P ILLAR LIPID, PILLAR TSH, PILLAR CBC, PILLAR CMP #### [facility] [address] [place] [address] #### NICOTINE QUAL #### [facility] , Employee Complete Blood Coun ton 01-07-2022 Basophils (Bld) [#/Vol] 0.0 10*3/uL Normal 0.0-0.2 [facility] Comment on above: Result Comment: PERF ORMED BY: [place] [address] PATHOLOGIST PUBLIC SERVICES LIBRARIAN ROBERT WEBB M.D. Performed By: #### P ILLAR LIPID, PILLAR TSH, PILLAR CBC, PILLAR CMP #### [address] #### NICOTINE QUAL #### [facility] , Basophils/100 WBC (Bld) 0.5 % Normal . [facility] Comment on above: Performed By: #### P ILLAR LIPID, PILLAR TSH, PILLAR CBC, PILLAR CMP #### [facility] [address] [place] [address] [place] #### NICOTINE QUAL #### [facility] , Eosinophils (Bld) [#/Vol] 0.1 10*3/uL Normal 0.0-0.45 [facility] Comment on above: Performed By: #### P ILLAR LIPID, PILLAR TSH, PILLAR CBC, PILLAR CMP #### [place] [address] [place] #### NICOTINE QUAL #### [facility] , Eosinophils/100 WBC (Bld) 1.2 % Normal . [facility] Comment on above: Performed By: #### P ILLAR LIPID, PILLAR TSH, PILLAR CBC, PILLAR CMP #### [facility] [address] [place] [address] [place] #### NICOTINE QUAL #### [facility] , Erythrocyte distribution width (RBC) [Ratio] 16.0 % High 11.9-15.3 [facility] Comment on above: Performed By: #### P ILLAR LIPID, PILLAR TSH, PILLAR CBC, PILLAR CMP #### [address] #### NICOTINE QUAL #### [facility] , Hematocrit (Bld) [Volume fraction] 38.7 % Normal 34.0-46.4 [facility] Comment on above: Performed By: #### P ILLAR LIPID, PILLAR TSH, PILLAR CBC, PILLAR CMP #### [facility] [address] [place] [address] [place] #### NICOTINE QUAL #### [facility] , Hemoglobin (Bld) [Mass/Vol] 12.7 g/dL Normal 11.8-15.4 [facility] Comment on above: Performed By: #### P ILLAR LIPID, PILLAR TSH, PILLAR CBC, PILLAR CMP #### [place] [address] [place] #### NICOTINE QUAL #### [facility] , Lymphocytes (Bld) [#/Vol] 2.8 10*3/uL Normal 1.00-4.8 [facility] Comment on above: Performed By: #### P ILLAR LIPID, PILLAR TSH, PILLAR CBC, PILLAR CMP #### [facility] [address] [place] [address] [place] #### NICOTINE QUAL #### [facility] , Lymphocytes/100 WBC (Bld) 40.3 % Normal . [facility] Comment on above: Performed By: #### P ILLAR LIPID, PILLAR TSH, PILLAR CBC, PILLAR CMP #### [facility] [address] [place] [address] #### NICOTINE QUAL #### [facility] , MCH (RBC) [Entitic mass] 27.5 pg Normal 24.7-34.3 [facility] Comment on above: Performed By: #### P ILLAR LIPID, PILLAR TSH, PILLAR CBC, PILLAR CMP #### [facility] [address] [place] [address] #### NICOTINE QUAL #### [facility] , MCV (RBC) [Entitic vol] 84.2 fL Normal 80-100 [facility] Comment on above: Performed By: #### P ILLAR LIPID, PILLAR TSH, PILLAR CBC, PILLAR CMP #### [address] #### NICOTINE QUAL #### [facility] , Mean Corpuscular HGB Conc 32.7 g/dL Normal 32.0-35.0 [facility] Comment on above: Performed By: #### P ILLAR LIPID, PILLAR TSH, PILLAR CBC, PILLAR CMP #### [facility] [address] [place] [address] [place] #### NICOTINE QUAL #### [facility] , Monocytes (Bld) [#/Vol] 0.3 10*3/uL Normal 0.0-0.8 [facility] Comment on above: Performed By: #### P ILLAR LIPID, PILLAR TSH, PILLAR CBC, PILLAR CMP #### [facility] [address] [place] [address] #### NICOTINE QUAL #### [facility] , Monocytes/100 WBC (Bld) 5.0 % Normal . [facility] Comment on above: Performed By: #### P ILLAR LIPID, PILLAR TSH, PILLAR CBC, PILLAR CMP #### [facility] [address] [place] [address] [place] #### NICOTINE QUAL #### [facility] , Neutrophils (Bld) [#/Vol] 3.7 10*3/uL Normal 1.8-7.7 [facility] Comment on above: Performed By: #### P ILLAR LIPID, PILLAR TSH, PILLAR CBC, PILLAR CMP #### [facility] [address] [place] [address] #### NICOTINE QUAL #### [facility] , Neutrophils/100 WBC (Bld) 53.0 % Normal . [facility] Comment on above: Performed By: #### P ILLAR LIPID, PILLAR TSH, PILLAR CBC, PILLAR CMP #### [facility] [address] [place] [address] [place] #### NICOTINE QUAL #### [facility] , Nucleated RBC/100 WBC (Bld) [Ratio] 0.1 % Normal 0-0.5 [facility] Comment on above: Performed By: #### P ILLAR LIPID, PILLAR TSH, PILLAR CBC, PILLAR CMP #### [facility] [address] [place] [address] #### NICOTINE QUAL #### [facility] , Platelet mean volume (Bld) [Entitic vol] 7.8 fL Normal 6.3-10.7 [facility] Comment on above: Performed By: #### P ILLAR LIPID, PILLAR TSH, PILLAR CBC, PILLAR CMP #### [facility] [address] [place] [address] [place] #### NICOTINE QUAL #### [facility] , Platelets (Bld) [#/Vol] 297 10*3/uL Normal 150-450 [facility] Comment on above: Performed By: #### P ILLAR LIPID, PILLAR TSH, PILLAR CBC, PILLAR CMP #### [place] [address] [place] #### NICOTINE QUAL #### [facility] , RBC (Bld) [#/Vol] 4.60 10*6/uL Normal 3.60-5.00 [facility] Comment on above: Performed By: #### P ILLAR LIPID, PILLAR TSH, PILLAR CBC, PILLAR CMP #### [place] [address] [place] #### NICOTINE QUAL #### [facility] , WBC (Bld) [#/Vol] 6.9 10*3/uL Normal 4.5-11.0 [facility] Comment on above: Performed By: #### P ILLAR LIPID, PILLAR TSH, PILLAR CBC, PILLAR CMP #### [address] #### NICOTINE QUAL #### [facility] , Employee Lipid Profileon Cholesterol [Mass/Vol] 163 mg/dL Normal 140-200 [facility] Comment on above: Result Comment: Chol less than 200 mg/dl low risk Chol 201-239 mg/dl borderline risk Chol 240 mg/dl and greater high risk Performed By: #### P ILLAR LIPID, PILLAR TSH, PILLAR CBC, PILLAR CMP #### [place] [address] [place] #### NICOTINE QUAL #### [facility] , Cholesterol in HDL [Mass/Vol] 57 mg/dL Normal 35-85 [facility] Comment on above: Result Comment: HDL CHOL ATP-III CLASSIFICATION Cardiovascular Risk HDL > or equal to 60 mg/dL LOW HDL < 40 mg/dL HIGH Performed By: #### P ILLAR LIPID, PILLAR TSH, PILLAR CBC, PILLAR CMP #### [place] [address] [place] #### NICOTINE QUAL #### [facility] , Cholesterol.total/Ch olesterol in HDL [Mass ratio] 2.9 {ratio} Normal <5.0 [facility] Comment on above: Performed By: #### P ILLAR LIPID, PILLAR TSH, PILLAR CBC, PILLAR CMP #### [facility] [address] [place] [address] #### NICOTINE QUAL #### [facility] , LDL Cholesterol,Calculat ed 99 mg/dL Normal 0-100 [facility] Comment on above: Result Comment: LDL ATP III CLASSIFICATION LDL less than 100 mg/dL Optimal LDL 100-129 mg/dL Near or above optimal LDL 130-159 mg/dL Borderline high LDL 160-189 mg/dL High LDL greater than 189 mg/dL Very high Performed By: #### P ILLAR LIPID, PILLAR TSH, PILLAR CBC, PILLAR CMP #### [address] #### NICOTINE QUAL #### [facility] , Triglyceride w/Reflex 34 mg/dL Low 35-149 [facility] Comment on above: Result Comment: TRIG ATP III CLASSIFICATION TRIG less than 150 mg/dL Normal TRIG 150-199 mg/dL Borderline high TRIG 200-500 mg/dL High TRIG greater than 500 mg/dL Very high Standard traceable to the Center for Disease Conrtrol and Prevention (CDC) test method. Performed By: #### P ILLAR LIPID, PILLAR TSH, PILLAR CBC, PILLAR CMP #### [place] [address] [place] #### NICOTINE QUAL #### [facility] , VLDL CHOLESTEROL 6 mg/dL Normal [facility] Comment on above: Performed By: #### P ILLAR LIPID, PILLAR TSH, PILLAR CBC, PILLAR CMP #### [facility] [address] [place] [address] [place] #### NICOTINE QUAL #### [facility] , Employee Thyroid Stim Hormon jason 01-07-2022 Employee Thyroid Stim Hormone 2.14 u[iU]/mL Normal 0.45-5.33 [facility] Comment on above: Result Comment: PERF ORMED BY: [place] [address] PATHOLOGIST PUBLIC SERVICES LIBRARIAN ROBERT WEBB M.D. Performed By: #### P ILLAR LIPID, PILLAR TSH, PILLAR CBC, PILLAR CMP #### [address] #### NICOTINE QUAL #### [facility] , Nicotine Metabolite, [place] 01-07-2022 Nicotine Metabolite Negative Normal Cutoff=25 [facility] Comment on above: Result Comment: Perf ormed at: - [facility] [address] [id number] Skull Chopper: Josh Ortez MD, Phone: [phone] PERFORMED BY: [place] [address] PATHOLOGIST PUBLIC SERVICES LIBRARIAN ROBERT WEBB M.D. Performed By: #### P ILLAR LIPID, PILLAR TSH, PILLAR CBC, PILLAR CMP #### [address] #### NICOTINE QUAL #### [facility] , [...] by: JACKIE WILLETT Date: 2020-12-16 14:53 Normal [facility] Vital Signs Date Time Vital Sign Value Performing Clinician Facility 07-08-2023 13:27-0500 Body mass index (BMI) [Ratio] 38.51 kg/m2 Arpita GARDNER Work Phone: [facility] 07-08-2023 13:27-0500 Body weight 116.57 kg Arpita Gusman KENDRA Work Phone: [facility] 07-08-2023 13:27-0500 Diastolic blood pressure 70 mm[Hg] Arpita Gusman KENDRA Work Phone: [facility] 07-08-2023 13:27-0500 Systolic blood pressure 112 mm[Hg] Arpita Gusman KENDRA Work Phone: [facility] 03-01-2022 09:00-0400 Body height 175.26 cm [facility] Other [employer] Other 03-01-2022 09:00-0400 Body mass index (BMI) [Ratio] 33.81 kg/m2 [facility] Other [facility] Other 03-01-2022 09:00-0400 Body temperature 97.9 [degF] [facility] Other [facility] Other 03-01-2022 09:00-0400 Body weight 103.87 kg [facility] Other [facility] Other 03-01-2022 09:00-0400 Diastolic blood pressure 80 mm[Hg] [facility] Other [facility] Other 03-01-2022 09:00-0400 Respiratory rate 20 /min [facility] Other [facility] Other 03-01-2022 09:00-0400 SaO2% (BldA) [Mass fraction] 97 % [facility] Other [facility] Other 03-01-2022 09:00-0400 Systolic blood pressure 118 mm[Hg] [facility] Other [facility] [employer] Other 01-18-2022 09:45-0400 Body height 175.26 cm [facility] Other [facility] Other 01-18-2022 09:45-0400 Body mass index (BMI) [Ratio] 32.93 kg/m2 [facility] Other [facility] Other 01-18-2022 09:45-0400 Body temperature 97.3 [degF] [facility] Other [facility] [employer] Other 01-18-2022 09:45-0400 Body weight 101.15 kg [facility] Other [facility] Other 01-18-2022 09:45-0400 Diastolic blood pressure 72 mm[Hg] [facility] Other [facility] [employer] Other 01-18-2022 09:45-0400 Respiratory rate 20 /min [facility] Other [facility] Other 01-18-2022 09:45-0400 SaO2% (BldA) [Mass fraction] 98 % [facility] Other [facility] [employer] Other 01-18-2022 09:45-0400 Systolic blood pressure 112 mm[Hg] [facility] Other [facility] Other 03-05-2021 16:15-0400 Body height 175.26 cm [facility] Other [facility] Other 03-05-2021 16:15-0400 Body mass index (BMI) [Ratio] 35.14 kg/m2 [facility] Other [facility] [employer] Other 03-05-2021 16:15-0400 Body weight 107.96 kg [facility] Other [facility] Other 03-05-2021 16:15-0400 Diastolic blood pressure 68 mm[Hg] [facility] Other [facility] [employer] Other 03-05-2021 16:15-0400 Respiratory rate 20 /min [facility] Other [facility] [employer] Other 03-05-2021 16:15-0400 SaO2% (BldA) [Mass fraction] 98 % [facility] Other [facility] Other 03-05-2021 16:15-0400 Systolic blood pressure 110 mm[Hg] [facility] Other [facility] Other Encounters Encounter Date Encounter Type Care [...] 09-10-2022 End: 09-10-2022 ambulatory Susanne Huitron Other [employer] Other Start: 09-10-2022 Telephone encounter Susanne Soraidarachel Perez [facility] Start: 08-21-2022 End: 08-21-2022 ambulatory Dontrell Gallegos Other [employer] Other Start: 08-21-2022 Telephone encounter Dontrell Perez [facility] Start: 08-09-2022 End: 08-09-2022 ambulatory [facility] Other [employer] Other Start: 08-09-2022 Telephone encounter Urban [facility] Start: 08-07-2022 End: 08-07-2022 ambulatory Urban M. [facility] Facility:[facility] Start: 08-06-2022 End: 08-06-2022 ambulatory Urban Max Other [employer] Other Start: 08-06-2022 Telephone encounter Urban Max [facility] Start: 03-26-2022 End: 03-26-2022 ambulatory Urban Max Other [facility] Other Start: 03-26-2022 Telephone encounter Urban Max [facility] Start: 03-01-2022 End: 03-01-2022 ambulatory [facility] Other [facility] [employer] Other Start: 03-01-2022 Encounter for genera l adult medical examination without abnormal findings [facility] Start: 03-01-2022 Periodic preventive med est patient 18-39 yrs [facility] Start: 02-13-2022 End: 02-13-2022 ambulatory Georgie Disla Other [employer] Other Start: 09-21-2022 Nursing evaluation o f patient and report Georgie Disla [facility] Start: 02-11-2022 End: 02-11-2022 ambulatory Georgie Disla Other [facility] Other Start: 02-11-2022 Nursing evaluation o f patient and report Georgie Disla [facility] Start: 01-18-2022 End: 01-18-2022 ambulatory Urban Max Other [facility] Other Start: 01-18-2022 Office outpatient visit 15 minutes Urban [facility] Start: 01-12-2022 End: 01-12-2022 ambulatory Georgie Disla Other [facility] Other Start: 01-12-2022 Nursing evaluation o f patient and report Georgie Disla [facility] Start: 01-07-2022 End: 01-07-2022 ambulatory Asim Garber Facility:[facility] Start: 03-05-2021 Encounter for genera l adult medical examination without abnormal findings [facility] Start: 03-05-2021 Periodic preventive med est patient 18-39 yrs [facility] Start: 12-16-2020 End: 12-16-2020 ambulatory [...] 02-27-2021 influenza, seasonal, injectable [facility] Other [facility] [employer] Other 02-29-2020 influenza, injectable, quadrivalent, contains preservative [facility] Other [facility] [employer] Other 02-29-2020 influenza virus vaccine, unspecified formulation Arpita GARDNER Work Phone: [facility] 02-07-2020 influenza, injectable, quadrivalent, contains preservative Patient Objection [facility] Other [employer] Other NEGATED: Highlighted row has not occurred!02-07-2020 influenza, injectable, quadrivalent, contains preservative Patient Objection Georgie Disla Other [employer] Other Payers Date Payer Category Payer Medicaid [facility] [employer] [place] [id number] 2023-Present [address] [place] [address] [id number] 2022 Medicaid [id number] [address] [employer] [id number] 2022-Present [address] [place] [address] [id number] 2022 Unknown [id number] 2021 Self-pay 1994 Unknown [id number] 1994 Unknown [id number] 1994 Unknown [id number] 1994 Unknown [id number] 1994 Unknown [id number] 1994 Unknown [id number] 1959 Unknown [id number] Unknown [id number] Unknown [id number] Social History Date Type Detail Facility Unknown if ever smoked [facility] Other Start: 12-03-2022 Sex Assigned At N [facility] Other Start: 12-01-2022 Tobacco smoking status NEIS Never smoked tobacco [facility] Start: 07-08-2023 Alcohol intake Current drinke r of alcohol (finding) [facility] Start: 12-03-2022 History of Social function [facility] Start: 12-01-2022 Alcohol Comment occasional [facility] Start: 11-22-2022 [facility] Start: 1995 Sex Assigned At Not on file [facility] Clinical Notes 03-05-2021 to 07-08-2023 KENDRA [...] of: KENDRA Palencia documented in this encounter [facility] 08-21-2022 Evaluation note Encounter Date Diagnosis Assessment Notes Jul, Acute non-recurrent frontal sinusitis (ICD-10 - J01.10) [facility] Other 03-14-2023 Evaluation note* Encounter Date Diagnosis Assessment Notes Treatment Notes Treatment Clinical Notes Jul, Dysuria (ICD-10 - R30.0) [facility] Other 11-01-2022 Evaluation note* Encounter Date Diagnosis Assessment Notes Treatment Notes Treatment Clinical Notes Mar, Anxiety (ICD-10 - F41.9) [facility] Other 10-07-2022 Evaluation note* Encounter Date Diagnosis Assessment Notes Treatment Notes Treatment Clinical Notes Feb, Encntr for general adult medical exam w/o abnormal findings (ICD-10 - Z00.00) Feb, Other No change today...Continue as is...FU 6 months.... [employer] Other 09-21-2022 Evaluation note* Encounter Date Diagnosis Assessment Notes Treatment Notes Treatment Clinical Notes Jan, Contact with and (suspected) exposure to other viral communicable diseases (ICD-10 - Z20.828) [employer] Other 09-19-2022 Evaluation note* Encounter Date Diagnosis Assessment Notes Treatment Notes Treatment Clinical Notes Jan, Contact with and (suspected) exposure to other viral communicable diseases (ICD-10 - Z20.828) [employer] Other 08-26-2022 Evaluation note* Encounter Date Diagnosis Assessment Notes Treatment Notes Treatment Clinical Notes Dec, Anxiety (ICD-10 - F41.9) E Rx sent. Lengthy discussion with patient that I think we need to try something than just a straight SSRI. We will see patient back in review. We talked about potential side effects as well as outcomes. She will call with any concerns. [employer] Other 08-20-2022 Evaluation note* Encounter Date Diagnosis Assessment Notes Treatment Notes Treatment Clinical Notes Dec, Contact with and (suspected) exposure to other viral communicable diseases (ICD-10 - Z20.828) [employer] Other 10-11-2021 Evaluation note* Encounter Date Diagnosis Assessment Notes Treatment Notes Treatment Clinical Notes Feb, Encntr for general adult medical exam w/o abnormal findings (ICD-10 - Z00.00) Feb, Other No change today...Continue as is...FU PRN/Yearly... [employer] Other Evaluation noteNo InformationNort [employer] Other Evaluation note* Diagnosis Third trimester state, incidental documented in this encounter [facility] N[facility]ative - Reported* Type Description Date Medical History Hx of MRSA Medical History anxiety Surgical History tonsillectomy and adenoidectomy 2012 Surgical History c-sections 2009 and 2016 Hospitalization History C Sections [employer] Other Summary Purpose Family History No Family History Records FoundNo Family History Records FoundNo Family History Records Found Advance Directives No Advanced Directives Records FoundNo Advanced Directives Records FoundNo Advanced Directives Records Found Additional Source Comments INFORMATION SOURCE (unrecogn ized section and content) DATE CREATED AUTHOR 12/19/2020 Neha rick DATE CREATED AUTHOR AUTHOR'S ORGANIZ ATION 08/09/2022 [facility] DATE CREATED AUTHOR AUTHOR'S ORGANIZ ATION 07/10/2023 [facility] EPIC REASON FOR VISIT (unrecogniz ed section and content) Reason Comments Routine Visit Care Teams (unrecognized sec tion and content) [employer] Nurse Relationship Specialty Start Date End Date Urban Santana MD [address] [place] [phone] PCP - General Family Medicine 11/18/22 FOR [...] BE BASED ON THE PRIMARY CLINICAL RECORDS. [facility] [employer] [facility]. provides no warranty or guarantee of the accuracy or completeness of information in this document.
[2023-07-24 16:20] VITALS: BP 120/63; PULSE 79
== END 2023-07-24 16:46 | disposition home or self-care (01) ==
LOC: FBCO 07:06 → FBC 16:06
PROVIDERS: PCP Family Medicine; Visit Provider Obstetrics & Gynecology
DX: O36.63X0 Maternal care for excessive fetal growth, third trimester, not applicable or unspecified (principal)
CPT/HCPCS: 59025

== ENCOUNTER 2023-07-28 08:00 | Outpatient (OUT) | payer BC, OTHER, SELFPAY ==
--- OUTSIDE RECORDS SUMMARY | 2023-07-28 08:17 | XMS_ITS | CCD ---
Author Name Unknown Address [facility] [employer] [facility] [address] [place] [id number] Organization [facility] Care Team Providers Care Bakery Products Checker Name Role Phone DR SURY CENTENO Primary Care Unavailable MAGUE, DR MAUDE Pathak [...] [facility] Clarity, UA Clear [facility] Health[facility] Color, UA Yellow [facility] Glucose, UA Negative Negative [...] Center pH, UA 5.5 5 - 9 [facility] Protein, UA Negative Negative - 1999(20) ++++ mg/dL [facility] Spec Grav, UA 1.015 1 - 1.03 [facility] Urobilinogen, UA 1.0 0.2 - 12 mg/dL [facility] Healthcar e Urine Cultureon 08-07-2022 Urine Culture >100,000 [facility] Other Urine Culture <16 Susceptible [employer] Other Urine Culture <8/4 Susceptible [employer] Other Urine Culture >16 Resistant [employer] Other Urine Culture <4 Susceptible [employer] Other Urine Culture <2 Susceptible [employer] Other Urine Culture <1 Susceptible [employer] Other Urine Culture <0.25 Susceptible [employer] Other Urine Culture <0.5 Susceptible [employer] Other Urine Culture >8 Resistant [employer] Other Urine Culture <32 Susceptible [employer] Other Urine Culture 4 Susceptible [employer] Other Urine Culture >2/38 Resistant [facility] Other Bacteria identified Cx Nom (U) Reason for Exam Dysuria Urine Reason for Exam: Dysuria : Urine ORGANISM: Escherichia coli (O:ESCCOL) [place] Count >100,000 Aerobic REMY Charge ([id number]) ------ [...] RESISTANT TO ALL B-LACTAM DRUGS. PERFORMED BY: [place] [address] PATHOLOGIST [employer] ROBERT WEBB M.D. [facility] Comment on above: Performed By: #### C UU #### [address] SARS-CoV-2 (COVID-19) RNA NA A+probe Ql (Resp)on 02-13-2022 SARS-CoV-2 (COVID-19) RNA CLAY+probe Ql (Unsp spec) Positive [facility] Other SARS-CoV-2 (COVID-19) RNA NA A+probe Ql (Resp)on 02-11-2022 SARS-CoV-2 (COVID-19) RNA CLAY+probe Ql (Unsp spec) Negative [facility] Other SARS-CoV-2 (COVID-19) RNA NA A+probe Ql (Resp)on 01-12-2022 SARS-CoV-2 (COVID-19) RNA CLAY+probe Ql (Unsp spec) Negative [facility] Other Employee Comp Metabolic Kokoe jakob 01-07-2022 Albumin [Mass/Vol] 4.0 g/dL Normal 3.2-5.5 [facility] Comment on above: Performed By: #### P ILLAR LIPID, PILLAR TSH, PILLAR CBC, PILLAR CMP #### [facility] [address] [place] [address] [place] #### NICOTINE QUAL #### [facility] , Albumin/Globulin [Mass ratio] 1.4 {ratio} Normal [facility] Comment on above: Performed By: #### P ILLAR LIPID, PILLAR TSH, PILLAR CBC, PILLAR CMP #### [facility] [address] [place] [address] #### NICOTINE QUAL #### [facility] , ALP [Catalytic activity/Vol] 72 U/L Normal 32-92 [facility] Comment on above: Performed By: #### P ILLAR LIPID, PILLAR TSH, PILLAR CBC, PILLAR CMP #### [facility] [address] [place] [address] [place] #### NICOTINE QUAL #### [facility] , ALT [Catalytic activity/Vol] 20 U/L Normal 10-60 [facility] Comment on above: Performed By: #### P ILLAR LIPID, PILLAR TSH, PILLAR CBC, PILLAR CMP #### [facility] [address] [place] [address] [place] #### NICOTINE QUAL #### [facility] , AST [Catalytic activity/Vol] 23 U/L Normal 10-42 [facility] Comment on above: Performed By: #### P ILLAR LIPID, PILLAR TSH, PILLAR CBC, PILLAR CMP #### [facility] [address] [place] [address] [place] #### NICOTINE QUAL #### [facility] , Bilirubin [Mass/Vol] 0.4 mg/dL Normal 0.3-1.2 [facility] Comment on above: Performed By: #### P ILLAR LIPID, PILLAR TSH, PILLAR CBC, PILLAR CMP #### [facility] [address] [place] [address] [place] #### NICOTINE QUAL #### [facility] , Calcium [Mass/Vol] 9.6 mg/dL Normal 8.2-10.2 [facility] Comment on above: Performed By: #### P ILLAR LIPID, PILLAR TSH, PILLAR CBC, PILLAR CMP #### [facility] [address] [place] [address] [place] #### NICOTINE QUAL #### [facility] , Chloride [Moles/Vol] 101 mmol/L Normal 95-114 [facility] Comment on above: Performed By: #### P ILLAR LIPID, PILLAR TSH, PILLAR CBC, PILLAR CMP #### [facility] [address] [place] [address] [place] #### NICOTINE QUAL #### [facility] , CO2 [Moles/Vol] 24.9 mmol/L Normal 22.0-30.0 [facility] Comment on above: Performed By: #### P ILLAR LIPID, PILLAR TSH, PILLAR CBC, PILLAR CMP #### [facility] [address] [place] [address] [place] #### NICOTINE QUAL #### [facility] , Creatinine [Mass/Vol] 0.72 mg/dL Normal 0.44-1.03 [facility] Comment on above: Performed By: #### P ILLAR LIPID, PILLAR TSH, PILLAR CBC, PILLAR CMP #### [facility] [address] [place] [address] [place] #### NICOTINE QUAL #### [facility] , Estimated GFR ( Katelin > 60 Normal [facility] Comment on above: Result Comment: GFR estimated reference range: According to KDOQI guidelines, <60 ml/min/1.73m2 is sufficient to diagnose a patient with chronic kidney disease. Performed By: #### P ILLAR LIPID, PILLAR TSH, PILLAR CBC, PILLAR CMP #### [facility] [address] [place] [address] [place] #### NICOTINE QUAL #### [facility] , Estimated GFR (Non- Am > 60 Normal [facility] Comment on above: Performed By: #### P ILLAR LIPID, PILLAR TSH, PILLAR CBC, PILLAR CMP #### [place] [address] [place] #### NICOTINE QUAL #### [facility] , Globulin (S) [Mass/Vol] 2.8 g/dL Normal [facility] Comment on above: Performed By: #### P ILLAR LIPID, PILLAR TSH, PILLAR CBC, PILLAR CMP #### [place] [address] [place] #### NICOTINE QUAL #### [facility] , Glucose [Mass/Vol] 91 mg/dL Normal 70-100 [facility] Comment on above: Performed By: #### P ILLAR LIPID, PILLAR TSH, PILLAR CBC, PILLAR CMP #### [place] [address] [place] #### NICOTINE QUAL #### [facility] , Potassium [Moles/Vol] 4.3 mmol/L Normal 3.5-5.1 [facility] Comment on above: Performed By: #### P ILLAR LIPID, PILLAR TSH, PILLAR CBC, PILLAR CMP #### [facility] [address] [place] [address] [place] #### NICOTINE QUAL #### [facility] , Protein [Mass/Vol] 6.8 g/dL Normal 6.1-7.9 [facility] Comment on above: Performed By: #### P ILLAR LIPID, PILLAR TSH, PILLAR CBC, PILLAR CMP #### [place] [address] [place] #### NICOTINE QUAL #### [facility] , Sodium [Moles/Vol] 134 mmol/L Low 136-146 [facility] Comment on above: Performed By: #### P ILLAR LIPID, PILLAR TSH, PILLAR CBC, PILLAR CMP #### [facility] [address] [place] [address] #### NICOTINE QUAL #### [facility] , Urea nitrogen [Mass/Vol] 10 mg/dL Normal 9-23 [facility] Comment on above: Performed By: #### P ILLAR LIPID, PILLAR TSH, PILLAR CBC, PILLAR CMP #### [facility] [address] [place] [address] #### NICOTINE QUAL #### [facility] , Employee Complete Blood Coun ton 01-07-2022 Basophils (Bld) [#/Vol] 0.0 10*3/uL Normal 0.0-0.2 [facility] Comment on above: Result Comment: PERF ORMED BY: [place] [address] PATHOLOGIST [employer] ROBERT WEBB M.D. Performed By: #### P ILLAR LIPID, PILLAR TSH, PILLAR CBC, PILLAR CMP #### [address] #### NICOTINE QUAL #### [facility] , Basophils/100 WBC (Bld) 0.5 % Normal . [facility] Comment on above: Performed By: #### P ILLAR LIPID, PILLAR TSH, PILLAR CBC, PILLAR CMP #### [facility] [address] [place] [address] [place] #### NICOTINE QUAL #### [facility] , Eosinophils (Bld) [#/Vol] 0.1 10*3/uL Normal 0.0-0.45 [facility] Comment on above: Performed By: #### P ILLAR LIPID, PILLAR TSH, PILLAR CBC, PILLAR CMP #### [place] [address] [place] #### NICOTINE QUAL #### [facility] , Eosinophils/100 WBC (Bld) 1.2 % Normal . [facility] Comment on above: Performed By: #### P ILLAR LIPID, PILLAR TSH, PILLAR CBC, PILLAR CMP #### [facility] [address] [place] [address] [place] #### NICOTINE QUAL #### [facility] , Erythrocyte distribution width (RBC) [Ratio] 16.0 % High 11.9-15.3 [facility] Comment on above: Performed By: #### P ILLAR LIPID, PILLAR TSH, PILLAR CBC, PILLAR CMP #### [address] #### NICOTINE QUAL #### [facility] , Hematocrit (Bld) [Volume fraction] 38.7 % Normal 34.0-46.4 [facility] Comment on above: Performed By: #### P ILLAR LIPID, PILLAR TSH, PILLAR CBC, PILLAR CMP #### [facility] [address] [place] [address] [place] #### NICOTINE QUAL #### [facility] , Hemoglobin (Bld) [Mass/Vol] 12.7 g/dL Normal 11.8-15.4 [facility] Comment on above: Performed By: #### P ILLAR LIPID, PILLAR TSH, PILLAR CBC, PILLAR CMP #### [place] [address] [place] #### NICOTINE QUAL #### [facility] , Lymphocytes (Bld) [#/Vol] 2.8 10*3/uL Normal 1.00-4.8 [facility] Comment on above: Performed By: #### P ILLAR LIPID, PILLAR TSH, PILLAR CBC, PILLAR CMP #### [facility] [address] [place] [address] [place] #### NICOTINE QUAL #### [facility] , Lymphocytes/100 WBC (Bld) 40.3 % Normal . [facility] Comment on above: Performed By: #### P ILLAR LIPID, PILLAR TSH, PILLAR CBC, PILLAR CMP #### [facility] [address] [place] [address] #### NICOTINE QUAL #### [facility] , MCH (RBC) [Entitic mass] 27.5 pg Normal 24.7-34.3 [facility] Comment on above: Performed By: #### P ILLAR LIPID, PILLAR TSH, PILLAR CBC, PILLAR CMP #### [facility] [address] [place] [address] #### NICOTINE QUAL #### [facility] , MCV (RBC) [Entitic vol] 84.2 fL Normal 80-100 [facility] Comment on above: Performed By: #### P ILLAR LIPID, PILLAR TSH, PILLAR CBC, PILLAR CMP #### [address] #### NICOTINE QUAL #### [facility] , Mean Corpuscular HGB Conc 32.7 g/dL Normal 32.0-35.0 [facility] Comment on above: Performed By: #### P ILLAR LIPID, PILLAR TSH, PILLAR CBC, PILLAR CMP #### [facility] [address] [place] [address] [place] #### NICOTINE QUAL #### [facility] , Monocytes (Bld) [#/Vol] 0.3 10*3/uL Normal 0.0-0.8 [facility] Comment on above: Performed By: #### P ILLAR LIPID, PILLAR TSH, PILLAR CBC, PILLAR CMP #### [facility] [address] [place] [address] #### NICOTINE QUAL #### [facility] , Monocytes/100 WBC (Bld) 5.0 % Normal . [facility] Comment on above: Performed By: #### P ILLAR LIPID, PILLAR TSH, PILLAR CBC, PILLAR CMP #### [facility] [address] [place] [address] [place] #### NICOTINE QUAL #### [facility] , Neutrophils (Bld) [#/Vol] 3.7 10*3/uL Normal 1.8-7.7 [facility] Comment on above: Performed By: #### P ILLAR LIPID, PILLAR TSH, PILLAR CBC, PILLAR CMP #### [facility] [address] [place] [address] #### NICOTINE QUAL #### [facility] , Neutrophils/100 WBC (Bld) 53.0 % Normal . [facility] Comment on above: Performed By: #### P ILLAR LIPID, PILLAR TSH, PILLAR CBC, PILLAR CMP #### [facility] [address] [place] [address] [place] #### NICOTINE QUAL #### [facility] , Nucleated RBC/100 WBC (Bld) [Ratio] 0.1 % Normal 0-0.5 [facility] Comment on above: Performed By: #### P ILLAR LIPID, PILLAR TSH, PILLAR CBC, PILLAR CMP #### [facility] [address] [place] [address] #### NICOTINE QUAL #### [facility] , Platelet mean volume (Bld) [Entitic vol] 7.8 fL Normal 6.3-10.7 [facility] Comment on above: Performed By: #### P ILLAR LIPID, PILLAR TSH, PILLAR CBC, PILLAR CMP #### [facility] [address] [place] [address] [place] #### NICOTINE QUAL #### [facility] , Platelets (Bld) [#/Vol] 297 10*3/uL Normal 150-450 [facility] Comment on above: Performed By: #### P ILLAR LIPID, PILLAR TSH, PILLAR CBC, PILLAR CMP #### [place] [address] [place] #### NICOTINE QUAL #### [facility] , RBC (Bld) [#/Vol] 4.60 10*6/uL Normal 3.60-5.00 [facility] Comment on above: Performed By: #### P ILLAR LIPID, PILLAR TSH, PILLAR CBC, PILLAR CMP #### [place] [address] [place] #### NICOTINE QUAL #### [facility] , WBC (Bld) [#/Vol] 6.9 10*3/uL Normal 4.5-11.0 [facility] Comment on above: Performed By: #### P ILLAR LIPID, PILLAR TSH, PILLAR CBC, PILLAR CMP #### [address] #### NICOTINE QUAL #### [facility] , Employee Lipid Profileon Cholesterol [Mass/Vol] 163 mg/dL Normal 140-200 [facility] Comment on above: Result Comment: Chol less than 200 mg/dl low risk Chol 201-239 mg/dl borderline risk Chol 240 mg/dl and greater high risk Performed By: #### P ILLAR LIPID, PILLAR TSH, PILLAR CBC, PILLAR CMP #### [place] [address] [place] #### NICOTINE QUAL #### [facility] , Cholesterol in HDL [Mass/Vol] 57 mg/dL Normal 35-85 [facility] Comment on above: Result Comment: HDL CHOL ATP-III CLASSIFICATION Cardiovascular Risk HDL > or equal to 60 mg/dL LOW HDL < 40 mg/dL HIGH Performed By: #### P ILLAR LIPID, PILLAR TSH, PILLAR CBC, PILLAR CMP #### [place] [address] [place] #### NICOTINE QUAL #### [facility] , Cholesterol.total/Ch olesterol in HDL [Mass ratio] 2.9 {ratio} Normal <5.0 [facility] Comment on above: Performed By: #### P ILLAR LIPID, PILLAR TSH, PILLAR CBC, PILLAR CMP #### [facility] [address] [place] [address] #### NICOTINE QUAL #### [facility] , LDL Cholesterol,Calculat ed 99 mg/dL Normal 0-100 [facility] Comment on above: Result Comment: LDL ATP III CLASSIFICATION LDL less than 100 mg/dL Optimal LDL 100-129 mg/dL Near or above optimal LDL 130-159 mg/dL Borderline high LDL 160-189 mg/dL High LDL greater than 189 mg/dL Very high Performed By: #### P ILLAR LIPID, PILLAR TSH, PILLAR CBC, PILLAR CMP #### [address] #### NICOTINE QUAL #### [facility] , Triglyceride w/Reflex 34 mg/dL Low 35-149 [facility] Comment on above: Result Comment: TRIG ATP III CLASSIFICATION TRIG less than 150 mg/dL Normal TRIG 150-199 mg/dL Borderline high TRIG 200-500 mg/dL High TRIG greater than 500 mg/dL Very high Standard traceable to the Center for Disease Conrtrol and Prevention (CDC) test method. Performed By: #### P ILLAR LIPID, PILLAR TSH, PILLAR CBC, PILLAR CMP #### [place] [address] [place] #### NICOTINE QUAL #### [facility] , VLDL CHOLESTEROL 6 mg/dL Normal [facility] Comment on above: Performed By: #### P ILLAR LIPID, PILLAR TSH, PILLAR CBC, PILLAR CMP #### [facility] [address] [place] [address] [place] #### NICOTINE QUAL #### [facility] , Employee Thyroid Stim Hormon jason 01-07-2022 Employee Thyroid Stim Hormone 2.14 u[iU]/mL Normal 0.45-5.33 [facility] Comment on above: Result Comment: PERF ORMED BY: [place] [address] PATHOLOGIST [employer] ROBERT WEBB M.D. Performed By: #### P ILLAR LIPID, PILLAR TSH, PILLAR CBC, PILLAR CMP #### [address] #### NICOTINE QUAL #### [facility] , Nicotine Metabolite, Qual[place] 01-07-2022 Nicotine Metabolite Negative Normal Cutoff=25 [facility] Comment on above: Result Comment: Perf ormed at: - [facility] [address] [id number] Associate Software Application Engineer: Josh Ortez MD, Phone: [phone] PERFORMED BY: [place] [address] PATHOLOGIST [employer] ROBERT WEBB M.D. Performed By: #### P ILLAR LIPID, PILLAR TSH, PILLAR CBC, PILLAR CMP #### [address] #### NICOTINE QUAL #### [facility] , [...] by: JACKIE WILLETT Date: 2020-12-16 14:53 Normal [facility] Vital Signs Date Time Vital Sign Value Performing Clinician Facility 07-08-2023 13:27-0500 Body mass index (BMI) [Ratio] 38.51 kg/m2 Arpita GARDNRE Work Phone: [facility] [...] Body height 175.26 cm [facility] Other [facility] Other 03-01-2022 09:00-0400 Body mass index (BMI) [Ratio] 33.81 kg/m2 [facility] Other [facility] Other 03-01-2022 09:00-0400 Body temperature 97.9 [degF] [facility] Other [facility] Other 03-01-2022 09:00-0400 Body weight 103.87 kg [facility] Other [facility] Other 03-01-2022 09:00-0400 Diastolic blood pressure 80 mm[Hg] [facility] Other [facility] Other 03-01-2022 09:00-0400 Respiratory rate 20 /min [facility] Other [facility] Other 03-01-2022 09:00-0400 SaO2% (BldA) [Mass fraction] 97 % [facility] Other [facility] Other 03-01-2022 09:00-0400 Systolic blood pressure 118 mm[Hg] [facility] Other [facility] Other 01-18-2022 09:45-0400 Body height 175.26 cm [facility] Other [facility] Other 01-18-2022 09:45-0400 Body mass index (BMI) [Ratio] 32.93 kg/m2 [facility] Other [facility] Other 01-18-2022 09:45-0400 Body temperature 97.3 [degF] [facility] Other [facility] Other 01-18-2022 09:45-0400 Body weight 101.15 kg [facility] Other [facility] Other 01-18-2022 09:45-0400 Diastolic blood pressure 72 mm[Hg] [facility] Other [facility] Other 01-18-2022 09:45-0400 Respiratory rate 20 /min [facility] Other [facility] Other 01-18-2022 09:45-0400 SaO2% (BldA) [Mass fraction] 98 % [facility] Other [facility] Other 01-18-2022 09:45-0400 Systolic blood pressure 112 mm[Hg] [facility] Other [facility] Other 03-05-2021 16:15-0400 Body height 175.26 cm [facility] Other [facility] Other 03-05-2021 16:15-0400 Body mass index (BMI) [Ratio] 35.14 kg/m2 [facility] Other [facility] Other 03-05-2021 16:15-0400 Body weight 107.96 kg [facility] Other [facility] Other 03-05-2021 16:15-0400 Diastolic blood pressure 68 mm[Hg] [facility] Other [facility] Other 03-05-2021 16:15-0400 Respiratory rate 20 /min [facility] Other [facility] Other 03-05-2021 16:15-0400 SaO2% (BldA) [Mass fraction] 98 % [facility] Other [facility] Other 03-05-2021 16:15-0400 Systolic blood pressure 110 mm[Hg] [facility] Other [facility] Other Encounters Encounter Date Encounter Type Care [...] 09-10-2022 End: 09-10-2022 ambulatory Susanne Huitron Other [facility] Other Start: 09-10-2022 Telephone encounter [facility] Start: 08-21-2022 End: 08-21-2022 ambulatory Dontrell Gallegos Other [facility] Other Start: 08-21-2022 Telephone encounter Dontrell [facility] Start: 08-09-2022 End: 08-09-2022 ambulatory [facility] Other [facility] Other Start: 08-09-2022 Telephone encounter [facility] Start: 08-07-2022 End: 08-07-2022 ambulatory [facility] Facility:[facility] Start: 08-06-2022 End: 08-06-2022 ambulatory [facility] Other [facility] Other Start: 08-06-2022 Telephone encounter [facility] Start: 03-26-2022 End: 03-26-2022 ambulatory [facility] Other [facility] Other Start: 03-26-2022 Telephone encounter [facility] Start: 03-01-2022 End: 03-01-2022 ambulatory [facility] Other [facility] Other Start: 03-01-2022 Encounter for genera l adult medical examination without abnormal findings [facility] Start: 03-01-2022 Periodic preventive med est patient 18-39 yrs [facility] Start: 02-13-2022 End: 02-13-2022 ambulatory Georgie Disla Other [facility] Other Start: 09-21-2022 Nursing evaluation o f patient and report Georgie Disla [facility] Start: 02-11-2022 End: 02-11-2022 ambulatory Georgie Disla Other [facility] Other Start: 02-11-2022 Nursing evaluation o f patient and report Georgie Disla [facility] Start: 01-18-2022 End: 01-18-2022 ambulatory [facility] Other [facility] Other Start: 01-18-2022 Office outpatient visit 15 minutes [facility] Start: 01-12-2022 End: 01-12-2022 ambulatory Georgie Disla Other [facility] Other Start: 01-12-2022 Nursing evaluation o f patient and report Georgie Disla [facility] Start: 01-07-2022 End: 01-07-2022 ambulatory Asim Garber Facility:[facility] Start: 03-05-2021 Encounter for genera l adult medical examination without abnormal findings [facility] Start: 03-05-2021 Periodic preventive med est patient 18-39 yrs [facility] Start: 12-16-2020 End: 12-16-[address] DOCTOR [...] 02-27-2021 influenza, seasonal, injectable [facility] Other [facility] Other 02-29-2020 influenza, injectable, quadrivalent, contains preservative [facility] Other [facility] Other 02-29-2020 influenza virus vaccine, unspecified formulation Arpita GARDNER Work Phone: [facility] 02-07-2020 influenza, injectable, quadrivalent, contains preservative Patient Objection [facility] Other [facility] Other NEGATED: Highlighted row has not occurred!02-07-2020 influenza, injectable, quadrivalent, contains preservative Patient Objection Georgie Disla Other [facility] Other Payers Date Payer Category Payer Medicaid [facility] [employer] [place] [id number] 2023-Present [address] [place] [address] [id number] 2022 Medicaid [id number] [address] [employer] PLUS [id number] 2022-Present [address] [place] [address] [id number] 2022 Unknown [id number] 2021 Self-pay 1994 Unknown [id number] 1994 Unknown [id number] 1994 Unknown [id number] 1994 Unknown [id number] 1994 Unknown [id number] 1994 Unknown [id number] 1959 Unknown [id number] Unknown [id number] Unknown [id number] Social History Date Type Detail Facility Unknown if ever smoked [facility] Other Start: 12-03-2022 Sex Assigned At N [facility] Other Start: 12-01-2022 Tobacco smoking status OKIS Never smoked tobacco [facility] Start: 07-08-2023 Alcohol intake Current drinke r of alcohol (finding) [facility] Start: 12-03-2022 History of Social function [facility] Start: 12-01-2022 Alcohol Comment occasional [facility] Start: 11-22-2022 [facility] Start: 1995 Sex Assigned At Not on file [facility] Clinical Notes 03-05-2021 to 07-08-2023 KENDRA [...] Acute non-recurrent frontal sinusitis (ICD-10 - J01.10) [facility] Other 03-14-2023 Evaluation note* Encounter Date Diagnosis Assessment Notes Treatment Notes Treatment Clinical Notes Jul, Dysuria (ICD-10 - R30.0) [facility] Other 11-01-2022 Evaluation note* Encounter Date Diagnosis Assessment Notes Treatment Notes Treatment Clinical Notes Mar, Anxiety (ICD-10 - F41.9) [facility] Other 10-07-2022 Evaluation note* Encounter Date Diagnosis Assessment Notes Treatment Notes Treatment Clinical Notes Feb, Encntr for general adult medical exam w/o abnormal findings (ICD-10 - Z00.00) Feb, Other No change today...Continue as is...FU 6 months.... [facility] Other 09-21-2022 Evaluation note* Encounter Date Diagnosis Assessment Notes Treatment Notes Treatment Clinical Notes Jan, Contact with and (suspected) exposure to other viral communicable diseases (ICD-10 - Z20.828) ip.access Other 09-19-2022 Evaluation note* Encounter Date Diagnosis Assessment Notes Treatment Notes Treatment Clinical Notes Jan, Contact with and (suspected) exposure to other viral communicable diseases (ICD-10 - Z20.828) ip[employer]access Other 08-26-2022 Evaluation note* Encounter Date Diagnosis Assessment Notes Treatment Notes Treatment Clinical Notes Dec, Anxiety (ICD-10 - F41.9) E Rx sent. Lengthy discussion with patient that I think we need to try something than just a straight SSRI. We will see patient back in review. We talked about potential side effects as well as outcomes. She will call with any concerns. ip[employer]access Other 08-20-2022 Evaluation note* Encounter Date Diagnosis Assessment Notes Treatment Notes Treatment Clinical Notes Dec, Contact with and (suspected) exposure to other viral communicable diseases (ICD-10 - Z20.828) ip.access Other 10-11-2021 Evaluation note* Encounter Date Diagnosis Assessment Notes Treatment Notes Treatment Clinical Notes Feb, Encntr for general adult medical exam w/o abnormal findings (ICD-10 - Z00.00) Feb, Other No change today...Continue as is...FU PRN/Yearly... ip[employer]access Other Evaluation noteNo [employer] Other Evaluation note* Diagnosis Third trimester state, incidental documented in this encounter [facility] N[facility]ative - Reported* Type Description Date Medical History Hx of MRSA Medical History anxiety Surgical History tonsillectomy and adenoidectomy 2012 Surgical History c-sections 2009 and 2016 Hospitalization History C Sections ip.access Other Summary Purpose Family History No Family History Records FoundNo Family History Records FoundNo Family History Records Found Advance Directives No Advanced Directives Records FoundNo Advanced Directives Records FoundNo Advanced Directives Records Found Additional Source Comments INFORMATION SOURCE (unrecogn ized section and content) DATE CREATED AUTHOR 12/19/2020 Neha rick DATE CREATED AUTHOR AUTHOR'S ORGANIZ ATION 08/09/[address] [facility] DATE CREATED AUTHOR AUTHOR'S ORGANIZ ATION 07/10/2023 [facility] EPIC REASON FOR VISIT (unrecogniz ed section and content) Reason Comments Routine Visit Care Teams (unrecognized sec tion and content) [employer] Relationship Specialty Start Date End Date Urban Santana MD [address] [place] [phone] PCP - General Family Medicine 11/18/22 FOR [...] BE BASED ON THE PRIMARY CLINICAL RECORDS. [facility] [facility]. provides no warranty or guarantee of the accuracy or completeness of information in this document.
--- NOTE | 2023-07-28 17:05 | US_ITS ---
[address] [address] Patient Name: JARVIS MACEDO MRN: [id number] date: 1995 Sex: F Assigned Patient Location: [facility] Current Patient Location: Accession/Order Number: [id number] Exam Date: 07/28/2023 17:10 Report Date: 07/29/2023 07:42 At the request of: TALITA LEARY Procedure: US OB BPP w non-stress EXAMINATION: US OB BPP w non-stress HISTORY: EXCESSIVE GROWTH AFFECTING [id number] COMPARISON: No relevant comparison available. TECHNIQUE: Ultrasound biophysical profile was performed in the radiology department. non-reactive stress testing was performed by nursing staff in the birthing center. FINDINGS: BREATHING MOVEMENTS: 2.0 GROSS BODY MOVEMENTS: 2.0 TONE: 2.0 QUALITATIVE AMNIOTIC FLUID VOLUME: 2.0 PRESENTATION: CEPHALIC HEART RATE: 129.8 bpm H.B./min AMNIOTIC FLUID VOLUME: 10.4 cm cm GESTATIONAL AGE: 37 weeks 3 days CONCLUSION: Total biophysical profile score: 8.0 Electronically authenticated by: REBEL FRANK Date: 07/29/2023 07:42
[2023-07-28 17:39] VITALS: BP 121/72; PULSE 90
== END 2023-07-28 18:00 | disposition home or self-care (01) ==
LOC: US 08:15 → FBC 17:03
PROVIDERS: PCP Family Medicine; Visit Provider Obstetrics & Gynecology
DX: O36.63X0 Maternal care for excessive fetal growth, third trimester, not applicable or unspecified (principal); Z3A.37 37 weeks gestation of pregnancy
CPT/HCPCS: 76818

== ENCOUNTER 2023-07-31 07:31 | Outpatient (OUT) | payer BC, OTHER, SELFPAY ==
--- OUTSIDE RECORDS SUMMARY | 2023-07-31 07:34 | XMS_ITS | CCD ---
Author Name Unknown Address [employer] [facility] [address] [place] [id number] Organization [facility] Care Team Providers Care Vitamin Manager Name Role Phone DR SURY CENTENO Primary [...] Unavailable Urban Santana MD Primary Care Provider [phone] ARPITA GUSMAN Attending Unavailable ARPITA GUSMAN Attending [...] Negative Negative - 4(70) +++ mg/dL [facility] Blood, UA Negative Negative - 50 Rodriguez/mcL [facility] Clarity, UA Clear [facility] Health[facility] Color, UA Yellow [facility] Healthcar [facility] Glucose, UA Negative Negative - 2000(110) ++++ mg/dL [facility] Interpretation and review of laboratory results Abnormal [facility] Ketones, UA Negative Negative - 160(16) ++++ mg/dL [facility] Leukocytes, UA Positive Negative - 500+++ Dg/mcL [facility] Nitrite, UA Negative Negative - Positive [facility] pH, UA 5.5 5 - 9 [facility] Healthcar [facility] Protein, UA Negative Negative - 1999(20) ++++ mg/dL [facility] Spec Grav, UA 1.015 1 - 1.03 [facility] Urobilinogen, UA 1.0 0.2 - 12 mg/dL [facility] Health[facility] Urine Cultureon 08-07-2022 Urine Culture >100,000 [employer] Other Urine Culture <16 Susceptible [employer] Other Urine Culture <8/4 Susceptible [employer] Other Urine Culture >16 Resistant [employer] Other Urine Culture <4 Susceptible [employer] Other Urine Culture <2 Susceptible [employer] Other Urine Culture <1 Susceptible [employer] Other Urine Culture <0.25 Susceptible [employer] Other Urine Culture <0.5 Susceptible [employer] Other Urine Culture >8 Resistant [employer] Other Urine Culture <32 Susceptible [employer] Other Urine Culture 4 Susceptible [employer] Other Urine Culture >2/38 Resistant [employer] Other Bacteria identified Cx Nom (U) Reason for Exam Dysuria Urine Reason for Exam: Dysuria : Urine ORGANISM: Escherichia coli (O:ESCCOL) [place]ston Count >100,000 Aerobic REMY Charge (NMIC56) ------ [...] RESISTANT TO ALL B-LACTAM DRUGS. PERFORMED BY: [place] [address] PATHOLOGIST HOSPICE PLAN ADMINISTRATOR ROBERT WEBB M.D. [facility] Comment on above: Performed By: #### C UU #### [address] SARS-CoV-2 (COVID-19) RNA NA A+probe Ql (Resp)on 02-13-2022 SARS-CoV-2 (COVID-19) RNA CLAY+probe Ql (Unsp spec) Positive [employer] Other SARS-CoV-2 (COVID-19) RNA NA A+probe Ql (Resp)on 02-11-2022 SARS-CoV-2 (COVID-19) RNA CLAY+probe Ql (Unsp spec) Negative [employer] Other SARS-CoV-2 (COVID-19) RNA NA A+probe Ql (Resp)on 01-12-2022 SARS-CoV-2 (COVID-19) RNA CLAY+probe Ql (Unsp spec) Negative [employer] Other Employee Comp Metabolic Kokoe jakob 01-07-2022 Albumin [Mass/Vol] 4.0 g/dL Normal 3.2-5.5 [facility] Comment on above: Performed By: #### P ILLAR LIPID, PILLAR TSH, PILLAR CBC, PILLAR CMP #### [facility] [address] [place] [address] [place] #### NICOTINE QUAL #### [facility] , Albumin/Globulin [Mass ratio] 1.4 {ratio} Normal [facility] Comment on above: Performed By: #### P ILLAR LIPID, PILLAR TSH, PILLAR CBC, PILLAR CMP #### [facility] [address] [place] [address] #### NICOTINE QUAL #### [facility] , ALP [Catalytic activity/Vol] 72 U/L Normal 32-92 [facility] Comment on above: Performed By: #### P ILLAR LIPID, PILLAR TSH, PILLAR CBC, PILLAR CMP #### [facility] [address] [place] [address] [place] #### NICOTINE QUAL #### [facility] , ALT [Catalytic activity/Vol] 20 U/L Normal 10-60 [facility] Comment on above: Performed By: #### P ILLAR LIPID, PILLAR TSH, PILLAR CBC, PILLAR CMP #### [facility] [address] [place] [address] [place] #### NICOTINE QUAL #### [facility] , AST [Catalytic activity/Vol] 23 U/L Normal 10-42 [facility] Comment on above: Performed By: #### P ILLAR LIPID, PILLAR TSH, PILLAR CBC, PILLAR CMP #### [facility] [address] [place] [address] [place] #### NICOTINE QUAL #### [facility] , Bilirubin [Mass/Vol] 0.4 mg/dL Normal 0.3-1.2 [facility] Comment on above: Performed By: #### P ILLAR LIPID, PILLAR TSH, PILLAR CBC, PILLAR CMP #### [facility] [address] [place] [address] [place] #### NICOTINE QUAL #### [facility] , Calcium [Mass/Vol] 9.6 mg/dL Normal 8.2-10.2 [facility] Comment on above: Performed By: #### P ILLAR LIPID, PILLAR TSH, PILLAR CBC, PILLAR CMP #### [facility] [address] [place] [address] [place] #### NICOTINE QUAL #### [facility] , Chloride [Moles/Vol] 101 mmol/L Normal 95-114 [facility] Comment on above: Performed By: #### P ILLAR LIPID, PILLAR TSH, PILLAR CBC, PILLAR CMP #### [facility] [address] [place] [address] [place] #### NICOTINE QUAL #### [facility] , CO2 [Moles/Vol] 24.9 mmol/L Normal 22.0-30.0 [facility] Comment on above: Performed By: #### P ILLAR LIPID, PILLAR TSH, PILLAR CBC, PILLAR CMP #### [facility] [address] [place] [address] [place] #### NICOTINE QUAL #### [facility] , Creatinine [Mass/Vol] 0.72 mg/dL Normal 0.44-1.03 [facility] Comment on above: Performed By: #### P ILLAR LIPID, PILLAR TSH, PILLAR CBC, PILLAR CMP #### [facility] [address] [place] [address] [place] #### NICOTINE QUAL #### [facility] , Estimated GFR ( Katelin > 60 Normal [facility] Comment on above: Result Comment: GFR estimated reference range: According to KDOQI guidelines, <60 ml/min/1.73m2 is sufficient to diagnose a patient with chronic kidney disease. Performed By: #### P ILLAR LIPID, PILLAR TSH, PILLAR CBC, PILLAR CMP #### [facility] [address] [place] [address] [place] #### NICOTINE QUAL #### [facility] , Estimated GFR (Non- Am > 60 Normal [facility] Comment on above: Performed By: #### P ILLAR LIPID, PILLAR TSH, PILLAR CBC, PILLAR CMP #### [place] [address] [place] #### NICOTINE QUAL #### [facility] , Globulin (S) [Mass/Vol] 2.8 g/dL Normal [facility] Comment on above: Performed By: #### P ILLAR LIPID, PILLAR TSH, PILLAR CBC, PILLAR CMP #### [place] [address] [place] #### NICOTINE QUAL #### [facility] , Glucose [Mass/Vol] 91 mg/dL Normal 70-100 [facility] Comment on above: Performed By: #### P ILLAR LIPID, PILLAR TSH, PILLAR CBC, PILLAR CMP #### [place] [address] [place] #### NICOTINE QUAL #### [facility] , Potassium [Moles/Vol] 4.3 mmol/L Normal 3.5-5.1 [facility] Comment on above: Performed By: #### P ILLAR LIPID, PILLAR TSH, PILLAR CBC, PILLAR CMP #### [facility] [address] [place] [address] [place] #### NICOTINE QUAL #### [facility] , Protein [Mass/Vol] 6.8 g/dL Normal 6.1-7.9 [facility] Comment on above: Performed By: #### P ILLAR LIPID, PILLAR TSH, PILLAR CBC, PILLAR CMP #### [place] [address] [place] #### NICOTINE QUAL #### [facility] , Sodium [Moles/Vol] 134 mmol/L Low 136-146 [facility] Comment on above: Performed By: #### P ILLAR LIPID, PILLAR TSH, PILLAR CBC, PILLAR CMP #### [facility] [address] [place] [address] #### NICOTINE QUAL #### [facility] , Urea nitrogen [Mass/Vol] 10 mg/dL Normal 9-23 [facility] Comment on above: Performed By: #### P ILLAR LIPID, PILLAR TSH, PILLAR CBC, PILLAR CMP #### [facility] [address] [place] [address] #### NICOTINE QUAL #### [facility] , Employee Complete Blood Coun ton 01-07-2022 Basophils (Bld) [#/Vol] 0.0 10*3/uL Normal 0.0-0.2 [facility] Comment on above: Result Comment: PERF ORMED BY: [place] [address] PATHOLOGIST HOSPICE PLAN ADMINISTRATOR ROBERT WEBB M.D. Performed By: #### P ILLAR LIPID, PILLAR TSH, PILLAR CBC, PILLAR CMP #### [address] #### NICOTINE QUAL #### [facility] , Basophils/100 WBC (Bld) 0.5 % Normal . [facility] Comment on above: Performed By: #### P ILLAR LIPID, PILLAR TSH, PILLAR CBC, PILLAR CMP #### [facility] [address] [place] [address] [place] #### NICOTINE QUAL #### [facility] , Eosinophils (Bld) [#/Vol] 0.1 10*3/uL Normal 0.0-0.45 [facility] Comment on above: Performed By: #### P ILLAR LIPID, PILLAR TSH, PILLAR CBC, PILLAR CMP #### [place] [address] [place] #### NICOTINE QUAL #### [facility] , Eosinophils/100 WBC (Bld) 1.2 % Normal . [facility] Comment on above: Performed By: #### P ILLAR LIPID, PILLAR TSH, PILLAR CBC, PILLAR CMP #### [facility] [address] [place] [address] [place] #### NICOTINE QUAL #### [facility] , Erythrocyte distribution width (RBC) [Ratio] 16.0 % High 11.9-15.3 [facility] Comment on above: Performed By: #### P ILLAR LIPID, PILLAR TSH, PILLAR CBC, PILLAR CMP #### [address] #### NICOTINE QUAL #### [facility] , Hematocrit (Bld) [Volume fraction] 38.7 % Normal 34.0-46.4 [facility] Comment on above: Performed By: #### P ILLAR LIPID, PILLAR TSH, PILLAR CBC, PILLAR CMP #### [facility] [address] [place] [address] [place] #### NICOTINE QUAL #### [facility] , Hemoglobin (Bld) [Mass/Vol] 12.7 g/dL Normal 11.8-15.4 [facility] Comment on above: Performed By: #### P ILLAR LIPID, PILLAR TSH, PILLAR CBC, PILLAR CMP #### [place] [address] [place] #### NICOTINE QUAL #### [facility] , Lymphocytes (Bld) [#/Vol] 2.8 10*3/uL Normal 1.00-4.8 [facility] Comment on above: Performed By: #### P ILLAR LIPID, PILLAR TSH, PILLAR CBC, PILLAR CMP #### [facility] [address] [place] [address] [place] #### NICOTINE QUAL #### [facility] , Lymphocytes/100 WBC (Bld) 40.3 % Normal . [facility] Comment on above: Performed By: #### P ILLAR LIPID, PILLAR TSH, PILLAR CBC, PILLAR CMP #### [facility] [address] [place] [address] #### NICOTINE QUAL #### [facility] , MCH (RBC) [Entitic mass] 27.5 pg Normal 24.7-34.3 [facility] Comment on above: Performed By: #### P ILLAR LIPID, PILLAR TSH, PILLAR CBC, PILLAR CMP #### [facility] [address] [place] [address] #### NICOTINE QUAL #### [facility] , MCV (RBC) [Entitic vol] 84.2 fL Normal 80-100 [facility] Comment on above: Performed By: #### P ILLAR LIPID, PILLAR TSH, PILLAR CBC, PILLAR CMP #### [address] #### NICOTINE QUAL #### [facility] , Mean Corpuscular HGB Conc 32.7 g/dL Normal 32.0-35.0 [facility] Comment on above: Performed By: #### P ILLAR LIPID, PILLAR TSH, PILLAR CBC, PILLAR CMP #### [facility] [address] [place] [address] [place] #### NICOTINE QUAL #### [facility] , Monocytes (Bld) [#/Vol] 0.3 10*3/uL Normal 0.0-0.8 [facility] Comment on above: Performed By: #### P ILLAR LIPID, PILLAR TSH, PILLAR CBC, PILLAR CMP #### [facility] [address] [place] [address] #### NICOTINE QUAL #### [facility] , Monocytes/100 WBC (Bld) 5.0 % Normal . [facility] Comment on above: Performed By: #### P ILLAR LIPID, PILLAR TSH, PILLAR CBC, PILLAR CMP #### [facility] [address] [place] [address] [place] #### NICOTINE QUAL #### [facility] , Neutrophils (Bld) [#/Vol] 3.7 10*3/uL Normal 1.8-7.7 [facility] Comment on above: Performed By: #### P ILLAR LIPID, PILLAR TSH, PILLAR CBC, PILLAR CMP #### [facility] [address] [place] [address] #### NICOTINE QUAL #### [facility] , Neutrophils/100 WBC (Bld) 53.0 % Normal . [facility] Comment on above: Performed By: #### P ILLAR LIPID, PILLAR TSH, PILLAR CBC, PILLAR CMP #### [facility] [address] [place] [address] [place] #### NICOTINE QUAL #### [facility] , Nucleated RBC/100 WBC (Bld) [Ratio] 0.1 % Normal 0-0.5 [facility] Comment on above: Performed By: #### P ILLAR LIPID, PILLAR TSH, PILLAR CBC, PILLAR CMP #### [facility] [address] [place] [address] #### NICOTINE QUAL #### [facility] , Platelet mean volume (Bld) [Entitic vol] 7.8 fL Normal 6.3-10.7 [facility] Comment on above: Performed By: #### P ILLAR LIPID, PILLAR TSH, PILLAR CBC, PILLAR CMP #### [facility] [address] [place] [address] [place] #### NICOTINE QUAL #### [facility] , Platelets (Bld) [#/Vol] 297 10*3/uL Normal 150-450 [facility] Comment on above: Performed By: #### P ILLAR LIPID, PILLAR TSH, PILLAR CBC, PILLAR CMP #### [place] [address] [place] #### NICOTINE QUAL #### [facility] , RBC (Bld) [#/Vol] 4.60 10*6/uL Normal 3.60-5.00 [facility] Comment on above: Performed By: #### P ILLAR LIPID, PILLAR TSH, PILLAR CBC, PILLAR CMP #### [place] [address] [place] #### NICOTINE QUAL #### [facility] , WBC (Bld) [#/Vol] 6.9 10*3/uL Normal 4.5-11.0 [facility] Comment on above: Performed By: #### P ILLAR LIPID, PILLAR TSH, PILLAR CBC, PILLAR CMP #### [address] #### NICOTINE QUAL #### [facility] , Employee Lipid Profileon Cholesterol [Mass/Vol] 163 mg/dL Normal 140-200 [facility] Comment on above: Result Comment: Chol less than 200 mg/dl low risk Chol 201-239 mg/dl borderline risk Chol 240 mg/dl and greater high risk Performed By: #### P ILLAR LIPID, PILLAR TSH, PILLAR CBC, PILLAR CMP #### [place] [address] [place] #### NICOTINE QUAL #### [facility] , Cholesterol in HDL [Mass/Vol] 57 mg/dL Normal 35-85 [facility] Comment on above: Result Comment: HDL CHOL ATP-III CLASSIFICATION Cardiovascular Risk HDL > or equal to 60 mg/dL LOW HDL < 40 mg/dL HIGH Performed By: #### P ILLAR LIPID, PILLAR TSH, PILLAR CBC, PILLAR CMP #### [place] [address] [place] #### NICOTINE QUAL #### [facility] , Cholesterol.total/Ch olesterol in HDL [Mass ratio] 2.9 {ratio} Normal <5.0 [facility] Comment on above: Performed By: #### P ILLAR LIPID, PILLAR TSH, PILLAR CBC, PILLAR CMP #### [facility] [address] [place] [address] #### NICOTINE QUAL #### [facility] , LDL Cholesterol,Calculat ed 99 mg/dL Normal 0-100 [facility] Comment on above: Result Comment: LDL ATP III CLASSIFICATION LDL less than 100 mg/dL Optimal LDL 100-129 mg/dL Near or above optimal LDL 130-159 mg/dL Borderline high LDL 160-189 mg/dL High LDL greater than 189 mg/dL Very high Performed By: #### P ILLAR LIPID, PILLAR TSH, PILLAR CBC, PILLAR CMP #### [address] #### NICOTINE QUAL #### [facility] , Triglyceride w/Reflex 34 mg/dL Low 35-149 [facility] Comment on above: Result Comment: TRIG ATP III CLASSIFICATION TRIG less than 150 mg/dL Normal TRIG 150-199 mg/dL Borderline high TRIG 200-500 mg/dL High TRIG greater than 500 mg/dL Very high Standard traceable to the Center for Disease Conrtrol and Prevention (CDC) test method. Performed By: #### P ILLAR LIPID, PILLAR TSH, PILLAR CBC, PILLAR CMP #### [place] [address] [place] #### NICOTINE QUAL #### [facility] , VLDL CHOLESTEROL 6 mg/dL Normal [facility] Comment on above: Performed By: #### P ILLAR LIPID, PILLAR TSH, PILLAR CBC, PILLAR CMP #### [facility] [address] [place] [address] [place] #### NICOTINE QUAL #### [facility] , Employee Thyroid Stim Hormon jason 01-07-2022 Employee Thyroid Stim Hormone 2.14 u[iU]/mL Normal 0.45-5.33 [facility] Comment on above: Result Comment: PERF ORMED BY: [place] [address] PATHOLOGIST HOSPICE PLAN ADMINISTRATOR ROBERT WEBB M.D. Performed By: #### P ILLAR LIPID, PILLAR TSH, PILLAR CBC, PILLAR CMP #### [address] #### NICOTINE QUAL #### [facility] , Nicotine Metabolite, [place] 01-07-2022 Nicotine Metabolite Negative Normal Cutoff=25 [facility] Comment on above: Result Comment: Perf ormed at: - [facility] [address] [id number] [employer]: Josh Ortez MD, Phone: [phone] PERFORMED BY: [place] [address] PATHOLOGIST HOSPICE PLAN ADMINISTRATOR ROBERT WEBB M.D. Performed By: #### P ILLAR LIPID, PILLAR TSH, PILLAR CBC, PILLAR CMP #### [address] #### NICOTINE QUAL #### [facility] , [...] by: JACKIE WILLETT Date: 2020-12-16 14:53 [facility] Vital Signs Date Time Vital Sign Value Performing Clinician Facility 07-08-2023 13:27-0500 Body mass index (BMI) [Ratio] 38.51 kg/m2 Arpita GARDNER Work Phone: [facility] 07-08-2023 13:27-0500 Body weight 116.57 kg Arpita Gusman KENDRA Work Phone: [facility] 07-08-2023 13:27-0500 Diastolic blood pressure 70 mm[Hg] Arpita Gusman KENDRA Work Phone: [facility] 07-08-2023 13:27-0500 Systolic blood pressure 112 mm[Hg] Arpita Gusman KENDRA Work Phone: [facility] 03-01-2022 09:00-0400 Body height 175.26 cm Urban Max Other [facility] Other 03-01-2022 09:00-0400 Body mass index (BMI) [Ratio] 33.81 kg/m2 [facility] Other [facility] Other 03-01-2022 09:00-0400 Body temperature 97.9 [degF] Urban Max Other [facility] Other 03-01-2022 09:00-0400 Body weight 103.87 kg Urban Max Other [facility] Other 03-01-2022 09:00-0400 Diastolic blood pressure 80 mm[Hg] Urban Max Other [facility] Other 03-01-2022 09:00-0400 Respiratory rate 20 /min Urban [facility] Other [facility] Other 03-01-2022 09:00-0400 SaO2% (BldA) [Mass fraction] 97 % [facility] Other [facility] Other 03-01-2022 09:00-0400 Systolic blood pressure 118 mm[Hg] Urban Max Other [facility] Other 01-18-2022 09:45-0400 Body height 175.26 cm Urban [facility] Other [facility] Other 01-18-2022 09:45-0400 Body mass index (BMI) [Ratio] 32.93 kg/m2 Urban [facility] Other [facility] Other 01-18-2022 09:45-0400 Body temperature 97.3 [degF] Urban Max Other [facility] Other 01-18-2022 09:45-0400 Body weight 101.15 kg Urban Max Other [facility] Other 01-18-2022 09:45-0400 Diastolic blood pressure 72 mm[Hg] Urban Max Other [facility] Other 01-18-2022 09:45-0400 Respiratory rate 20 /min Urban Max Other [facility] Other 01-18-2022 09:45-0400 SaO2% (BldA) [Mass fraction] 98 % Urban [facility] Other [facility] Other 01-18-2022 09:45-0400 Systolic blood pressure 112 mm[Hg] Urban [facility] Other [facility] Other 03-05-2021 16:15-0400 Body height 175.26 cm Urban [facility] Other [facility] Other 03-05-2021 16:15-0400 Body mass index (BMI) [Ratio] 35.14 kg/m2 [facility] Other [facility] Other 03-05-2021 16:15-0400 Body weight 107.96 kg Urban Max Other [facility] Other 03-05-2021 16:15-0400 Diastolic blood pressure 68 mm[Hg] Urban Max Other [facility] Other 03-05-2021 16:15-0400 Respiratory rate 20 /min Urban Max Other [facility] Other 03-05-2021 16:15-0400 SaO2% (BldA) [Mass fraction] 98 % Urban [facility] Other [facility] Other 03-05-2021 16:15-0400 Systolic blood pressure 110 mm[Hg] Urban [facility] Other [facility] Other Encounters Encounter Date Encounter Type Care [...] 09-10-2022 End: 09-10-2022 ambulatory Susanne Huitron Other [facility] Other Start: 09-10-2022 Telephone encounter Susanne Soraidarachel Perez [facility] Start: 08-21-2022 End: 08-21-2022 ambulatory Dontrell Gallegos Other [facility] Other Start: 08-21-2022 Telephone encounter Dontrell Perez [facility] Start: 08-09-2022 End: 08-09-2022 ambulatory Urban Max Other [facility] Other Start: 08-09-2022 Telephone encounter Urban Max [facility] Start: 08-07-2022 End: 08-07-2022 ambulatory Urban M. Max Facility:[facility] Start: 08-06-2022 End: 08-06-2022 ambulatory Urban Max Other [facility] Other Start: 08-06-2022 Telephone encounter Urban Max [facility] Start: 03-26-2022 End: 03-26-2022 ambulatory Urban Max Other [facility] Other Start: 03-26-2022 Telephone encounter Urban Max [facility] Start: 03-01-2022 End: 03-01-2022 ambulatory Urban Max Other [facility] Other Start: 03-01-2022 Encounter for genera l adult medical examination without abnormal findings Urban Max [facility] Start: 03-01-2022 Periodic preventive med est patient 18-39 yrs Urban Max [facility] Start: 02-13-2022 End: 02-13-2022 ambulatory Georgie Disla Other [facility] Other Start: 09-21-2022 Nursing evaluation o f patient and report Georgie Disla [facility] Start: 02-11-2022 End: 02-11-2022 ambulatory Georgie Disla Other [facility] Other Start: 02-11-2022 Nursing evaluation o f patient and report Georgie Disla [facility] Start: 01-18-2022 End: 01-18-2022 ambulatory Urban Max Other [facility] Other Start: 01-18-2022 Office outpatient visit 15 minutes Urban Max [facility] Start: 01-12-2022 End: 01-12-2022 ambulatory Georgie Disla Other [facility] Other Start: 01-12-2022 Nursing evaluation o f patient and report Georgie Disla [facility] Start: 01-07-2022 End: 01-07-2022 ambulatory Asim Garber Facility:[facility] Start: 03-05-2021 Encounter for genera l adult medical examination without abnormal findings Urban Max [facility] Start: 03-05-2021 Periodic preventive med est patient 18-39 yrs Urban Max [facility] Start: 12-16-2020 End: 12-16-2020 ambulatory [...] 02-27-2021 influenza, seasonal, injectable [facility] Other [facility] Other 02-29-2020 influenza, injectable, quadrivalent, contains preservative [facility] Other [facility] Other 02-29-2020 influenza virus vaccine, unspecified formulation Arpita GARDNER Work Phone: [facility] 02-07-2020 influenza, injectable, quadrivalent, contains preservative Patient Objection Urban Max Other [facility] Other NEGATED: Highlighted row has not occurred!02-07-2020 influenza, injectable, quadrivalent, contains preservative Patient Objection Georgie Disla Other [facility] Other Payers Date Payer Category Payer Medicaid [facility] [employer] [place] [id number] 2023-Present [address] [place] [address] [id number] 2022 Medicaid [id number] [address] [employer] [id number] 2022-Present [address] [place] [address] [id number] 2022 Unknown [id number] 2021 Self-pay 1994 Unknown [id number] 1994 Unknown [id number] 1994 Unknown [id number] 1994 Unknown [id number] 1994 Unknown [id number] 1994 Unknown [id number] 1959 Unknown [id number] Unknown [id number] Unknown [id number] Social History Date Type Detail Facility Unknown if ever smoked [facility] [employer] Other Start: 12-03-2022 Sex Assigned At N [facility] [employer] Other Start: 12-01-2022 Tobacco smoking status VAIS Never smoked tobacco [facility] Start: 07-08-2023 Alcohol intake Current drinke r of alcohol (finding) [facility] Start: 12-03-2022 History of Social function [facility] Start: 12-01-2022 Alcohol Comment occasional [facility] Start: 11-22-2022 [facility] Start: 1995 Sex Assigned At Not on file N [facility] Clinical Notes 03-05-2021 to 07-08-2023 KENDRA [...] KENDRA Palencia documented in this encounter [facility] 08-21-2022 Evaluation note Encounter Date Diagnosis Assessment Notes Jul, Acute non-recurrent frontal sinusitis (ICD-10 - J01.10) [facility] Other 03-14-2023 Evaluation note* Encounter Date Diagnosis Assessment Notes Treatment Notes Treatment Clinical Notes Jul, Dysuria (ICD-10 - R30.0) [facility] Other 11-01-2022 Evaluation note* Encounter Date Diagnosis Assessment Notes Treatment Notes Treatment Clinical Notes Mar, Anxiety (ICD-10 - F41.9) [facility] Other 10-07-2022 Evaluation note* Encounter Date Diagnosis Assessment Notes Treatment Notes Treatment Clinical Notes Feb, Encntr for general adult medical exam w/o abnormal findings (ICD-10 - Z00.00) Feb, Other No change today...Continue as is...FU 6 months.... [facility] Other 09-21-2022 Evaluation note* Encounter Date Diagnosis Assessment Notes Treatment Notes Treatment Clinical Notes Jan, Contact with and (suspected) exposure to other viral communicable diseases (ICD-10 - Z20.828) [facility] Other 09-19-2022 Evaluation note* Encounter Date Diagnosis Assessment Notes Treatment Notes Treatment Clinical Notes Jan, Contact with and (suspected) exposure to other viral communicable diseases (ICD-10 - Z20.828) [facility] Other 08-26-2022 Evaluation note* Encounter Date Diagnosis Assessment Notes Treatment Notes Treatment Clinical Notes Dec, Anxiety (ICD-10 - F41.9) E Rx sent. Lengthy discussion with patient that I think we need to try something than just a straight SSRI. We will see patient back in review. We talked about potential side effects as well as outcomes. She will call with any concerns. [facility] Other 08-20-2022 Evaluation note* Encounter Date Diagnosis Assessment Notes Treatment Notes Treatment Clinical Notes Dec, Contact with and (suspected) exposure to other viral communicable diseases (ICD-10 - Z20.828) [facility] Other 10-11-2021 Evaluation note* Encounter Date Diagnosis Assessment Notes Treatment Notes Treatment Clinical Notes Feb, Encntr for general adult medical exam w/o abnormal findings (ICD-10 - Z00.00) Feb, Other No change today...Continue as is...FU PRN/Yearly... [facility] Other Evaluation noteNo InformationNort [employer] Other Evaluation note* Diagnosis Third trimester state, incidental documented in this encounter [facility] N[facility]ative - Reported* Type Description Date Medical History Hx of MRSA Medical History anxiety Surgical History tonsillectomy and adenoidectomy 2012 Surgical History c-sections 2009 and 2016 Hospitalization History C Sections [facility] Other Summary Purpose Family History No Family History Records FoundNo Family History Records FoundNo Family History Records Found Advance Directives No Advanced Directives Records FoundNo Advanced Directives Records FoundNo Advanced Directives Records Found Additional Source Comments INFORMATION SOURCE (unrecogn ized section and content) DATE CREATED AUTHOR 12/19/2020 Neha rick DATE CREATED AUTHOR AUTHOR'S ORGANIZ ATION 08/09/2022 [facility] DATE CREATED AUTHOR AUTHOR'S ORGANIZ ATION 07/10/2023 [facility] EPIC REASON FOR VISIT (unrecogniz ed section and content) Reason Comments Routine Visit Care Teams (unrecognized sec tion and content) Vitamin Manager Relationship Specialty Start Date End Date Urban Santana MD [address] [place] [phone] PCP - General Family Medicine 11/18/22 FOR [...] BE BASED ON THE PRIMARY CLINICAL RECORDS. [facility] provides no warranty or guarantee of the accuracy or completeness of information in this document.
[2023-07-31 16:23] VITALS: BP 124/61; PULSE 92
== END 2023-07-31 17:10 | disposition home or self-care (01) ==
LOC: FBCO 07:31 → FBC 16:06
PROVIDERS: PCP Family Medicine; Visit Provider Obstetrics & Gynecology
DX: O36.63X0 Maternal care for excessive fetal growth, third trimester, not applicable or unspecified (principal)
CPT/HCPCS: 59025

== ENCOUNTER 2023-08-04 19:21 | Inpatient (IN) | payer BC, OTHER, SELFPAY ==
[2023-08-04] VITALS (25 sets, daily range): BP systolic 94–123; BP diastolic 52–75; PULSE 76–95; RESP 3–23; TEMP 36.8; O2SAT 95–100
--- OUTSIDE RECORDS SUMMARY | 2023-08-04 07:57 | XMS_ITS | CCD ---
Author Name Unknown Address 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 Role Phone TARYN, DR GA Primary [...] UA Negative Negative - 4(70) +++ mg/dL [facility] Blood, UA Negative Negative - 50 Rodriguez/mcL [facility] Clarity, UA Clear [facility] Healthca re Color, UA Yellow [facility] Healthcar e Glucose, UA Negative Negative - 2000(110) ++++ mg/dL [facility] Interpretation and review of laboratory results Abnormal [facility] Ketones, UA Negative Negative - 160(16) ++++ mg/dL [facility] Leukocytes, UA Positive Negative - 500+++ Dg/mcL [facility] Nitrite, UA Negative Negative - Positive [facility] pH, UA 5.5 5 - 9 [facility] Healthcar e Protein, UA Negative Negative - 1999(20) ++++ mg/dL [facility] Spec Grav, UA 1.015 1 - 1.03 [facility] Urobilinogen, UA 1.0 0.2 - 12 mg/dL [facility] Healthcar e Urine Cultureon 08-07-2022 Urine Culture >100,000 [facility] Other Urine Culture <16 Susceptible [facility] Social Other Urine Culture <8/4 Susceptible [employer] Other Urine Culture >16 Resistant [facility] Other Urine Culture <4 Susceptible [facility] [employer] Other Urine Culture <2 Susceptible [facility] Other Urine Culture <1 Susceptible [facility] Other Urine Culture <0.25 Susceptible [facility] Other Urine Culture <0.5 Susceptible [facility] Other Urine Culture >8 Resistant [facility] Other Urine Culture <32 Susceptible [facility] Other Urine Culture 4 Susceptible [facility] Other Urine Culture >2/38 Resistant [facility] Other Bacteria identified Cx Nom (U) Reason for Exam Dysuria Urine Reason for Exam: Dysuria : Urine ORGANISM: Escherichia coli (O:ESCCOL) [place] Count >100,000 Aerobic REMY Charge (NMIC56) ------ [...] RESISTANT TO ALL B-LACTAM DRUGS. PERFORMED BY: [place] [address] PATHOLOGIST RN TRANSPORT ROBERT WEBB M.D. [facility] Comment on above: Performed By: #### C UU #### [address] SARS-CoV-2 (COVID-19) RNA NA A+probe Ql (Resp)on 02-13-2022 SARS-CoV-2 (COVID-19) RNA CLAY+probe Ql (Unsp spec) Positive [facility] Other SARS-CoV-2 (COVID-19) RNA NA A+probe Ql (Resp)on 02-11-2022 SARS-CoV-2 (COVID-19) RNA CLAY+probe Ql (Unsp spec) Negative [facility] Other SARS-CoV-2 (COVID-19) RNA NA A+probe Ql (Resp)on 01-12-2022 SARS-CoV-2 (COVID-19) RNA CLAY+probe Ql (Unsp spec) Negative [facility] Other Employee Comp Metabolic Kokoe jakob 01-07-2022 Albumin [Mass/Vol] 4.0 g/dL Normal 3.2-5.5 [facility] Comment on above: Performed By: #### P ILLAR LIPID, PILLAR TSH, PILLAR CBC, PILLAR CMP #### [facility] [address] [place] [address] [place] #### NICOTINE QUAL #### [facility] , Albumin/Globulin [Mass ratio] 1.4 {ratio} Normal [facility] Comment on above: Performed By: #### P ILLAR LIPID, PILLAR TSH, PILLAR CBC, PILLAR CMP #### [facility] [address] [place] [address] #### NICOTINE QUAL #### [facility] , ALP [Catalytic activity/Vol] 72 U/L Normal 32-92 [facility] Comment on above: Performed By: #### P ILLAR LIPID, PILLAR TSH, PILLAR CBC, PILLAR CMP #### [facility] [address] [place] [address] [place] #### NICOTINE QUAL #### [facility] , ALT [Catalytic activity/Vol] 20 U/L Normal 10-60 [facility] Comment on above: Performed By: #### P ILLAR LIPID, PILLAR TSH, PILLAR CBC, PILLAR CMP #### [facility] [address] [place] [address] [place] #### NICOTINE QUAL #### [facility] , AST [Catalytic activity/Vol] 23 U/L Normal 10-42 [facility] Comment on above: Performed By: #### P ILLAR LIPID, PILLAR TSH, PILLAR CBC, PILLAR CMP #### [facility] [address] [place] [address] [place] #### NICOTINE QUAL #### [facility] , Bilirubin [Mass/Vol] 0.4 mg/dL Normal 0.3-1.2 [facility] Comment on above: Performed By: #### P ILLAR LIPID, PILLAR TSH, PILLAR CBC, PILLAR CMP #### [facility] [address] [place] [address] [place] #### NICOTINE QUAL #### [facility] , Calcium [Mass/Vol] 9.6 mg/dL Normal 8.2-10.2 [facility] Comment on above: Performed By: #### P ILLAR LIPID, PILLAR TSH, PILLAR CBC, PILLAR CMP #### [facility] [address] [place] [address] [place] #### NICOTINE QUAL #### [facility] , Chloride [Moles/Vol] 101 mmol/L Normal 95-114 [facility] Comment on above: Performed By: #### P ILLAR LIPID, PILLAR TSH, PILLAR CBC, PILLAR CMP #### [facility] [address] [place] [address] [place] #### NICOTINE QUAL #### [facility] , CO2 [Moles/Vol] 24.9 mmol/L Normal 22.0-30.0 [facility] Comment on above: Performed By: #### P ILLAR LIPID, PILLAR TSH, PILLAR CBC, PILLAR CMP #### [facility] [address] [place] [address] [place] #### NICOTINE QUAL #### [facility] , Creatinine [Mass/Vol] 0.72 mg/dL Normal 0.44-1.03 [facility] Comment on above: Performed By: #### P ILLAR LIPID, PILLAR TSH, PILLAR CBC, PILLAR CMP #### [facility] [address] [place] [address] [place] #### NICOTINE QUAL #### [facility] , Estimated GFR ( Aktelin > 60 Normal [facility] Comment on above: Result Comment: GFR estimated reference range: According to KDOQI guidelines, <60 ml/min/1.73m2 is sufficient to diagnose a patient with chronic kidney disease. Performed By: #### P ILLAR LIPID, PILLAR TSH, PILLAR CBC, PILLAR CMP #### [facility] [address] [place] [address] [place] #### NICOTINE QUAL #### [facility] , Estimated GFR (Non- Am > 60 Normal [facility] Comment on above: Performed By: #### P ILLAR LIPID, PILLAR TSH, PILLAR CBC, PILLAR CMP #### [place] [address] [place] #### NICOTINE QUAL #### [facility] , Globulin (S) [Mass/Vol] 2.8 g/dL Normal [facility] Comment on above: Performed By: #### P ILLAR LIPID, PILLAR TSH, PILLAR CBC, PILLAR CMP #### [place] [address] [place] #### NICOTINE QUAL #### [facility] , Glucose [Mass/Vol] 91 mg/dL Normal 70-100 [facility] Comment on above: Performed By: #### P ILLAR LIPID, PILLAR TSH, PILLAR CBC, PILLAR CMP #### [place] [address] [place] #### NICOTINE QUAL #### [facility] , Potassium [Moles/Vol] 4.3 mmol/L Normal 3.5-5.1 [facility] Comment on above: Performed By: #### P ILLAR LIPID, PILLAR TSH, PILLAR CBC, PILLAR CMP #### [facility] [address] [place] [address] [place] #### NICOTINE QUAL #### [facility] , Protein [Mass/Vol] 6.8 g/dL Normal 6.1-7.9 [facility] Comment on above: Performed By: #### P ILLAR LIPID, PILLAR TSH, PILLAR CBC, PILLAR CMP #### [place] [address] [place] #### NICOTINE QUAL #### [facility] , Sodium [Moles/Vol] 134 mmol/L Low 136-146 [facility] Comment on above: Performed By: #### P ILLAR LIPID, PILLAR TSH, PILLAR CBC, PILLAR CMP #### [facility] [address] [place] [address] #### NICOTINE QUAL #### [facility] , Urea nitrogen [Mass/Vol] 10 mg/dL Normal 9-23 [facility] Comment on above: Performed By: #### P ILLAR LIPID, PILLAR TSH, PILLAR CBC, PILLAR CMP #### [facility] [address] [place] [address] #### NICOTINE QUAL #### [facility] , Employee Complete Blood Coun ton 01-07-2022 Basophils (Bld) [#/Vol] 0.0 10*3/uL Normal 0.0-0.2 [facility] Comment on above: Result Comment: PERF ORMED BY: [place] [address] PATHOLOGIST RN TRANSPORT ROBERT WEBB M.D. Performed By: #### P ILLAR LIPID, PILLAR TSH, PILLAR CBC, PILLAR CMP #### [address] #### NICOTINE QUAL #### [facility] , Basophils/100 WBC (Bld) 0.5 % Normal . [facility] Comment on above: Performed By: #### P ILLAR LIPID, PILLAR TSH, PILLAR CBC, PILLAR CMP #### [facility] [address] [place] [address] [place] #### NICOTINE QUAL #### [facility] , Eosinophils (Bld) [#/Vol] 0.1 10*3/uL Normal 0.0-0.45 [facility] Comment on above: Performed By: #### P ILLAR LIPID, PILLAR TSH, PILLAR CBC, PILLAR CMP #### [place] [address] [place] #### NICOTINE QUAL #### [facility] , Eosinophils/100 WBC (Bld) 1.2 % Normal . [facility] Comment on above: Performed By: #### P ILLAR LIPID, PILLAR TSH, PILLAR CBC, PILLAR CMP #### [facility] [address] [place] [address] [place] #### NICOTINE QUAL #### [facility] , Erythrocyte distribution width (RBC) [Ratio] 16.0 % High 11.9-15.3 [facility] Comment on above: Performed By: #### P ILLAR LIPID, PILLAR TSH, PILLAR CBC, PILLAR CMP #### [address] #### NICOTINE QUAL #### [facility] , Hematocrit (Bld) [Volume fraction] 38.7 % Normal 34.0-46.4 [facility] Comment on above: Performed By: #### P ILLAR LIPID, PILLAR TSH, PILLAR CBC, PILLAR CMP #### [facility] [address] [place] [address] [place] #### NICOTINE QUAL #### [facility] , Hemoglobin (Bld) [Mass/Vol] 12.7 g/dL Normal 11.8-15.4 [facility] Comment on above: Performed By: #### P ILLAR LIPID, PILLAR TSH, PILLAR CBC, PILLAR CMP #### [place] [address] [place] #### NICOTINE QUAL #### [facility] , Lymphocytes (Bld) [#/Vol] 2.8 10*3/uL Normal 1.00-4.8 [facility] Comment on above: Performed By: #### P ILLAR LIPID, PILLAR TSH, PILLAR CBC, PILLAR CMP #### [facility] [address] [place] [address] [place] #### NICOTINE QUAL #### [facility] , Lymphocytes/100 WBC (Bld) 40.3 % Normal . [facility] Comment on above: Performed By: #### P ILLAR LIPID, PILLAR TSH, PILLAR CBC, PILLAR CMP #### [facility] [address] [place] [address] #### NICOTINE QUAL #### [facility] , MCH (RBC) [Entitic mass] 27.5 pg Normal 24.7-34.3 [facility] Comment on above: Performed By: #### P ILLAR LIPID, PILLAR TSH, PILLAR CBC, PILLAR CMP #### [facility] [address] [place] [address] #### NICOTINE QUAL #### [facility] , MCV (RBC) [Entitic vol] 84.2 fL Normal 80-100 [facility] Comment on above: Performed By: #### P ILLAR LIPID, PILLAR TSH, PILLAR CBC, PILLAR CMP #### [address] #### NICOTINE QUAL #### [facility] , Mean Corpuscular HGB Conc 32.7 g/dL Normal 32.0-35.0 [facility] Comment on above: Performed By: #### P ILLAR LIPID, PILLAR TSH, PILLAR CBC, PILLAR CMP #### [facility] [address] [place] [address] [place] #### NICOTINE QUAL #### [facility] , Monocytes (Bld) [#/Vol] 0.3 10*3/uL Normal 0.0-0.8 [facility] Comment on above: Performed By: #### P ILLAR LIPID, PILLAR TSH, PILLAR CBC, PILLAR CMP #### [facility] [address] [place] [address] #### NICOTINE QUAL #### [facility] , Monocytes/100 WBC (Bld) 5.0 % Normal . [facility] Comment on above: Performed By: #### P ILLAR LIPID, PILLAR TSH, PILLAR CBC, PILLAR CMP #### [facility] [address] [place] [address] [place] #### NICOTINE QUAL #### [facility] , Neutrophils (Bld) [#/Vol] 3.7 10*3/uL Normal 1.8-7.7 [facility] Comment on above: Performed By: #### P ILLAR LIPID, PILLAR TSH, PILLAR CBC, PILLAR CMP #### [facility] [address] [place] [address] #### NICOTINE QUAL #### [facility] , Neutrophils/100 WBC (Bld) 53.0 % Normal . [facility] Comment on above: Performed By: #### P ILLAR LIPID, PILLAR TSH, PILLAR CBC, PILLAR CMP #### [facility] [address] [place] [address] [place] #### NICOTINE QUAL #### [facility] , Nucleated RBC/100 WBC (Bld) [Ratio] 0.1 % Normal 0-0.5 [facility] Comment on above: Performed By: #### P ILLAR LIPID, PILLAR TSH, PILLAR CBC, PILLAR CMP #### [facility] [address] [place] [address] #### NICOTINE QUAL #### [facility] , Platelet mean volume (Bld) [Entitic vol] 7.8 fL Normal 6.3-10.7 [facility] Comment on above: Performed By: #### P ILLAR LIPID, PILLAR TSH, PILLAR CBC, PILLAR CMP #### [facility] [address] [place] [address] [place] #### NICOTINE QUAL #### [facility] , Platelets (Bld) [#/Vol] 297 10*3/uL Normal 150-450 [facility] Comment on above: Performed By: #### P ILLAR LIPID, PILLAR TSH, PILLAR CBC, PILLAR CMP #### [place] [address] [place] #### NICOTINE QUAL #### [facility] , RBC (Bld) [#/Vol] 4.60 10*6/uL Normal 3.60-5.00 [facility] Comment on above: Performed By: #### P ILLAR LIPID, PILLAR TSH, PILLAR CBC, PILLAR CMP #### [place] [address] [place] #### NICOTINE QUAL #### [facility] , WBC (Bld) [#/Vol] 6.9 10*3/uL Normal 4.5-11.0 [facility] Comment on above: Performed By: #### P ILLAR LIPID, PILLAR TSH, PILLAR CBC, PILLAR CMP #### [address] #### NICOTINE QUAL #### [facility] , Employee Lipid Profileon Cholesterol [Mass/Vol] 163 mg/dL Normal 140-200 [facility] Comment on above: Result Comment: Chol less than 200 mg/dl low risk Chol 201-239 mg/dl borderline risk Chol 240 mg/dl and greater high risk Performed By: #### P ILLAR LIPID, PILLAR TSH, PILLAR CBC, PILLAR CMP #### [place] [address] [place] #### NICOTINE QUAL #### [facility] , Cholesterol in HDL [Mass/Vol] 57 mg/dL Normal 35-85 [facility] Comment on above: Result Comment: HDL CHOL ATP-III CLASSIFICATION Cardiovascular Risk HDL > or equal to 60 mg/dL LOW HDL < 40 mg/dL HIGH Performed By: #### P ILLAR LIPID, PILLAR TSH, PILLAR CBC, PILLAR CMP #### [place] [address] [place] #### NICOTINE QUAL #### [facility] , Cholesterol.total/Ch olesterol in HDL [Mass ratio] 2.9 {ratio} Normal <5.0 [facility] Comment on above: Performed By: #### P ILLAR LIPID, PILLAR TSH, PILLAR CBC, PILLAR CMP #### [facility] [address] [place] [address] #### NICOTINE QUAL #### [facility] , LDL Cholesterol,Calculat ed 99 mg/dL Normal 0-100 [facility] Comment on above: Result Comment: LDL ATP III CLASSIFICATION LDL less than 100 mg/dL Optimal LDL 100-129 mg/dL Near or above optimal LDL 130-159 mg/dL Borderline high LDL 160-189 mg/dL High LDL greater than 189 mg/dL Very high Performed By: #### P ILLAR LIPID, PILLAR TSH, PILLAR CBC, PILLAR CMP #### [address] #### NICOTINE QUAL #### [facility] , Triglyceride w/Reflex 34 mg/dL Low 35-149 [facility] Comment on above: Result Comment: TRIG ATP III CLASSIFICATION TRIG less than 150 mg/dL Normal TRIG 150-199 mg/dL Borderline high TRIG 200-500 mg/dL High TRIG greater than 500 mg/dL Very high Standard traceable to the Center for Disease Conrtrol and Prevention (CDC) test method. Performed By: #### P ILLAR LIPID, PILLAR TSH, PILLAR CBC, PILLAR CMP #### [place] [address] [place] #### NICOTINE QUAL #### [facility] , VLDL CHOLESTEROL 6 mg/dL Normal [facility] Comment on above: Performed By: #### P ILLAR LIPID, PILLAR TSH, PILLAR CBC, PILLAR CMP #### [facility] [address] [place] [address] [place] #### NICOTINE QUAL #### [facility] , Employee Thyroid Stim Hormon jason 01-07-2022 Employee Thyroid Stim Hormone 2.14 u[iU]/mL Normal 0.45-5.33 [facility] Comment on above: Result Comment: PERF ORMED BY: [place] [address] PATHOLOGIST RN TRANSPORT ROBERT WEBB M.D. Performed By: #### P ILLAR LIPID, PILLAR TSH, PILLAR CBC, PILLAR CMP #### [address] #### NICOTINE QUAL #### [facility] , Nicotine Metabolite, Qual[place] 01-07-2022 Nicotine Metabolite Negative Normal Cutoff=25 [facility] Comment on above: Result Comment: Perf ormed at: - [facility] [address] [id number] Director [employer]: Josh Ortez MD, Phone: [phone] PERFORMED BY: [place] [address] PATHOLOGIST RN TRANSPORT ROBERT WEBB M.D. Performed By: #### P ILLAR LIPID, PILLAR TSH, PILLAR CBC, PILLAR CMP #### [address] #### NICOTINE QUAL #### [facility] , [...] by: JACKIE WILLETT Date: 2020-12-16 14:53 Normal [facility] Vital Signs Date Time Vital Sign Value Performing Clinician Facility 07-08-2023 13:27-0500 Body mass index (BMI) [Ratio] 38.51 kg/m2 Arpita GARDNER Work Phone: [facility] 07-08-2023 13:27-0500 Body weight 116.57 kg Arpita Gusman KENDRA Work Phone: [facility] 07-08-2023 13:27-0500 Diastolic blood pressure 70 mm[Hg] Arpita Gusman KENDRA Work Phone: [facility] 07-08-2023 13:27-0500 Systolic blood pressure 112 mm[Hg] Arpita Gusman KENDRA Work Phone: [facility] 03-01-2022 09:00-0400 Body height 175.26 cm [facility] Other [facility] Other 03-01-2022 09:00-0400 Body mass index (BMI) [Ratio] 33.81 kg/m2 [facility] Other [facility] Other 03-01-2022 09:00-0400 Body temperature 97.9 [degF] [facility] Other [facility] Other 03-01-2022 09:00-0400 Body weight 103.87 kg [facility] Other [facility] Other 03-01-2022 09:00-0400 Diastolic blood pressure 80 mm[Hg] [facility] Other [facility] Other 03-01-2022 09:00-0400 Respiratory rate 20 /min [facility] Other [facility] Other 03-01-2022 09:00-0400 SaO2% (BldA) [Mass fraction] 97 % [facility] Other [facility] Other 03-01-2022 09:00-0400 Systolic blood pressure 118 mm[Hg] [facility] Other [facility] Other 01-18-2022 09:45-0400 Body height 175.26 cm [facility] Other [facility] Other 01-18-2022 09:45-0400 Body mass index (BMI) [Ratio] 32.93 kg/m2 [facility] Other [facility] Other 01-18-2022 09:45-0400 Body temperature 97.3 [degF] [facility] Other [facility] Other 01-18-2022 09:45-0400 Body weight 101.15 kg [facility] Other [facility] Other 01-18-2022 09:45-0400 Diastolic blood pressure 72 mm[Hg] [facility] Other [facility] Other 01-18-2022 09:45-0400 Respiratory rate 20 /min [facility] Other [facility] Other 01-18-2022 09:45-0400 SaO2% (BldA) [Mass fraction] 98 % [facility] Other [facility] Other 01-18-2022 09:45-0400 Systolic blood pressure 112 mm[Hg] [facility] Other [facility] Other 03-05-2021 16:15-0400 Body height 175.26 cm [facility] Other [facility] Other 03-05-2021 16:15-0400 Body mass index (BMI) [Ratio] 35.14 kg/m2 [facility] Other [facility] Other 03-05-2021 16:15-0400 Body weight 107.96 kg [facility] Other [facility] Other 03-05-2021 16:15-0400 Diastolic blood pressure 68 mm[Hg] [facility] Other [facility] Other 03-05-2021 16:15-0400 Respiratory rate 20 /min [facility] Other [facility] Other 03-05-2021 16:15-0400 SaO2% (BldA) [Mass fraction] 98 % [facility] Other [facility] Other 03-05-2021 16:15-0400 Systolic blood pressure 110 mm[Hg] [facility] Other [facility] Other Encounters Encounter Date Encounter Type Care [...] 09-10-2022 End: 09-10-2022 ambulatory Susanne Huitron Other [facility] Other Start: 09-10-2022 Telephone encounter Susanne Soraidarachel Perez [facility] Start: 08-21-2022 End: 08-21-2022 ambulatory Dontrell Gallegos Other [facility] Other Start: 08-21-2022 Telephone encounter Dontrell Perez [facility] Start: 08-09-2022 End: 08-09-2022 ambulatory Urban [facility] Other [facility] Other Start: 08-09-2022 Telephone encounter Urban Max [facility] Start: 08-07-2022 End: 08-07-2022 ambulatory Urban M. Max Facility:[facility] Start: 08-06-2022 End: 08-06-2022 ambulatory Urban Max Other [facility] Other Start: 08-06-2022 Telephone encounter Urban Max [facility] Start: 03-26-2022 End: 03-26-2022 ambulatory Urban Max Other [facility] Other Start: 03-26-2022 Telephone encounter Urban Max [facility] Start: 03-01-2022 End: 03-01-2022 ambulatory Urban [facility] Other [facility] Other Start: 03-01-2022 Encounter for genera l adult medical examination without abnormal findings [facility] Start: 03-01-2022 Periodic preventive med est patient 18-39 yrs [facility] Start: 02-13-2022 End: 02-13-2022 ambulatory Georgie Disla Other [facility] Other Start: 09-21-2022 Nursing evaluation o f patient and report Georgie Disla [facility] Start: 02-11-2022 End: 02-11-2022 ambulatory Georgie Disla Other [facility] Other Start: 02-11-2022 Nursing evaluation o f patient and report Georgie Disla [facility] Start: 01-18-2022 End: 01-18-2022 ambulatory Urban Max Other [facility] Other Start: 01-18-2022 Office outpatient visit 15 minutes Urban [facility] Start: 01-12-2022 End: 01-12-2022 ambulatory Georgie Disla Other [facility] Other Start: 01-12-2022 Nursing evaluation o f patient and report Georgie Disla [facility] Start: 01-07-2022 End: 01-07-2022 ambulatory Asim Garber Facility:[facility] Start: 03-05-2021 Encounter for genera l adult medical examination without abnormal findings [facility] Start: 03-05-2021 Periodic preventive med est patient 18-39 yrs [facility] Start: 12-16-2020 End: 12-16-[address] [...] 02-27-2021 influenza, seasonal, injectable [facility] Other [facility] Other 02-29-2020 influenza, injectable, quadrivalent, contains preservative [facility] Other [facility] Other 02-29-2020 influenza virus vaccine, unspecified formulation Arpita GARDNER Work Phone: [facility] 02-07-2020 influenza, injectable, quadrivalent, contains preservative Patient Objection [facility] Other [facility] Other NEGATED: Highlighted row has not occurred!02-07-2020 influenza, injectable, quadrivalent, contains preservative Patient Objection Georgie Disla Other [facility] Other Payers Date Payer Category Payer Medicaid [facility] [employer] [place] [id number] 2023-Present [address] [place] [address] [id number] 2022 Medicaid [id number] [address] [employer] [id number] 2022-Present [address] [place] [address] [id number] 2022 Unknown [id number] 2021 Self-pay 1994 Unknown [id number] 1994 Unknown [id number] 1994 Unknown [id number] 1994 Unknown [id number] 1994 Unknown [id number] 1994 Unknown [id number] 1959 Unknown [id number] Unknown [id number] Unknown [id number] Social History Date Type Detail Facility Unknown if ever smoked [facility] [employer] Other Start: 12-03-2022 Sex Assigned At N [facility] [employer] Other Start: 12-01-2022 Tobacco smoking status TXIS Never smoked tobacco [facility] Start: 07-08-2023 Alcohol intake Current drinke r of alcohol (finding) [facility] Start: 12-03-2022 History of Social function [facility] Start: 12-01-2022 Alcohol Comment occasional [facility] Start: 11-22-2022 [facility] Start: 1995 Sex Assigned At Not on file N [facility] Clinical Notes 03-05-2021 to 07-08-2023 KENDRA [...] of: KENDRA Palencia documented in this encounter [facility] [facility] Evaluation note Encounter Date Diagnosis Assessment Notes Jul, Acute non-recurrent frontal sinusitis (ICD-10 - J01.10) [facility] Other 03-14-2023 Evaluation note* Encounter Date Diagnosis Assessment Notes Treatment Notes Treatment Clinical Notes Jul, Dysuria (ICD-10 - R30.0) [facility] Other 11-01-2022 Evaluation note* Encounter Date Diagnosis Assessment Notes Treatment Notes Treatment Clinical Notes Mar, Anxiety (ICD-10 - F41.9) [facility] Other 10-07-2022 Evaluation note* Encounter Date Diagnosis Assessment Notes Treatment Notes Treatment Clinical Notes Feb, Encntr for general adult medical exam w/o abnormal findings (ICD-10 - Z00.00) Feb, Other No change today...Continue as is...FU 6 months.... [facility] Other 09-21-2022 Evaluation note* Encounter Date Diagnosis Assessment Notes Treatment Notes Treatment Clinical Notes Jan, Contact with and (suspected) exposure to other viral communicable diseases (ICD-10 - Z20.828) [facility] Other 09-19-2022 Evaluation note* Encounter Date Diagnosis Assessment Notes Treatment Notes Treatment Clinical Notes Jan, Contact with and (suspected) exposure to other viral communicable diseases (ICD-10 - Z20.828) [facility] Other 08-26-2022 Evaluation note* Encounter Date Diagnosis Assessment Notes Treatment Notes Treatment Clinical Notes Dec, Anxiety (ICD-10 - F41.9) E Rx sent. Lengthy discussion with patient that I think we need to try something than just a straight SSRI. We will see patient back in review. We talked about potential side effects as well as outcomes. She will call with any concerns. [facility] Other 08-20-2022 Evaluation note* Encounter Date Diagnosis Assessment Notes Treatment Notes Treatment Clinical Notes Dec, Contact with and (suspected) exposure to other viral communicable diseases (ICD-10 - Z20.828) [facility] Other 10-11-2021 Evaluation note* Encounter Date Diagnosis Assessment Notes Treatment Notes Treatment Clinical Notes Feb, Encntr for general adult medical exam w/o abnormal findings (ICD-10 - Z00.00) Feb, Other No change today...Continue as is...FU PRN/Yearly... [facility] Other Evaluation noteNo InformationN[facility] [place] Other Evaluation note* Diagnosis Third trimester state, incidental documented in this encounter [facility] N[facility]ative - Reported* Type Description Date Medical History Hx of MRSA Medical History anxiety Surgical History tonsillectomy and adenoidectomy 2012 Surgical History c-sections 2009 and 2016 Hospitalization History C Sections [facility] Other Summary Purpose Family History No Family History Records FoundNo Family History Records FoundNo Family History Records Found Advance Directives No Advanced Directives Records FoundNo Advanced Directives Records FoundNo Advanced Directives Records Found Additional Source Comments INFORMATION SOURCE (unrecogn ized section and content) DATE CREATED AUTHOR 12/19/2020 Neha rick DATE CREATED AUTHOR AUTHOR'S ORGANIZ ATION 08/09/2022 [facility] DATE CREATED AUTHOR AUTHOR'S ORGANIZ ATION 07/10/2023 [facility] EPIC REASON FOR VISIT (unrecogniz ed section and content) Reason Comments Routine Visit Care Teams (unrecognized sec tion and content) [employer] Relationship Specialty Start Date End Date Urban Santana MD [address] [place] [phone] PCP - General Family Medicine 11/18/22 FOR [...] BE BASED ON THE PRIMARY CLINICAL RECORDS. [facility] [employer] [facility] provides no warranty or guarantee of the accuracy or completeness of information in this document.
--- NOTE | 2023-08-04 17:01 | US_ITS ---
[address] [address] Patient Name: JARVIS MACEDO MRN: [id number] date: 1995 Sex: F Assigned Patient Location: Current Patient Location: [facility] Accession/Order Number: [id number] Exam Date: 08/04/2023 17:07 Report Date: 08/05/2023 07:14 At the request of: TALITA LEARY Procedure: US OB BPP w non-stress EXAMINATION: US OB BPP w non-stress HISTORY: EXCESSIVE GROWTH AFFECTING [id number] COMPARISON: No relevant comparison available. TECHNIQUE: Ultrasound biophysical profile was performed in the radiology department. FINDINGS: BREATHING MOVEMENTS: 2.0 GROSS BODY MOVEMENTS: 2.0 TONE: 2.0 QUALITATIVE AMNIOTIC FLUID VOLUME: 2.0 PRESENTATION: CEPHALIC HEART RATE: 131.1 bpm H.B./min AMNIOTIC FLUID VOLUME: 11.1 cm cm GESTATIONAL AGE: 38 weeks 3 days CONCLUSION: Total biophysical profile score: 8.0 Electronically authenticated by: REBEL FRANK Date: 08/05/2023 07:14
--- NOTE | 2023-08-04 19:21 | W.PC.ACHO ---
Registration Status: REG OUT Primary Language: Preferred Language:
--- OUTSIDE RECORDS SUMMARY | 2023-08-04 19:24 | XMS_ITS | CCD ---
Author Name Unknown Address [facility] ENJORE [facility] [address] [place] [id number] Organization [facility] Care Team Providers Care Systems Spec Name Role Phone TARYN, DR GA Primary [...] UA Negative Negative - 4(70) +++ mg/dL [facility] Blood, UA Negative Negative - 50 Rodriguez/mcL [facility] Clarity, UA Clear [facility] Color, UA Yellow [facility] Glucose, UA Negative Negative - 2000(110) ++++ mg/dL [facility] Interpretation and review of laboratory results Abnormal [facility] Ketones, UA Negative Negative - 160(16) ++++ mg/dL [facility] Leukocytes, UA Positive Negative - 500+++ Dg/mcL [facility] Nitrite, UA Negative Negative - Positive [facility] pH, UA 5.5 5 - 9 [facility] Protein, UA Negative Negative - 1999(20) ++++ mg/dL [facility] Spec Grav, UA 1.015 1 - 1.03 [facility] Urobilinogen, UA 1.0 0.2 - 12 mg/dL [facility] Health[facility] Urine Cultureon 08-07-2022 Urine Culture >100,000 [facility] Other Urine Culture <16 Susceptible [facility] Other Urine Culture <8/4 Susceptible [facility] Other Urine Culture >16 Resistant [facility] Other Urine Culture <4 Susceptible [facility] Other Urine Culture <2 Susceptible [facility] Other Urine Culture <1 Susceptible [facility] Other Urine Culture <0.25 Susceptible [facility] Other Urine Culture <0.5 Susceptible [facility] Other Urine Culture >8 Resistant [facility] Other Urine Culture <32 Susceptible [facility] Other Urine Culture 4 Susceptible [facility] Other Urine Culture >2/38 Resistant [facility] Other Bacteria identified Cx Nom (U) Reason for Exam Dysuria Urine Reason for Exam: Dysuria : Urine ORGANISM: Escherichia coli (O:ESCCOL) [place] Count >100,000 Aerobic REMY Charge (NMIC56) ------ [...] RESISTANT TO ALL B-LACTAM DRUGS. PERFORMED BY: [place] [address] PATHOLOGIST DELIVERY DRIVER ASSISTANT ROBERT WEBB M.D. [facility] Comment on above: Performed By: #### C UU #### [address] SARS-CoV-2 (COVID-19) RNA NA A+probe Ql (Resp)on 02-13-2022 SARS-CoV-2 (COVID-19) RNA CLAY+probe Ql (Unsp spec) Positive [facility] Other SARS-CoV-2 (COVID-19) RNA NA A+probe Ql (Resp)on 02-11-2022 SARS-CoV-2 (COVID-19) RNA CLAY+probe Ql (Unsp spec) Negative [facility] Other SARS-CoV-2 (COVID-19) RNA NA A+probe Ql (Resp)on 01-12-2022 SARS-CoV-2 (COVID-19) RNA CLAY+probe Ql (Unsp spec) Negative [facility] Other Employee Comp Metabolic Kokoe jakob 01-07-2022 Albumin [Mass/Vol] 4.0 g/dL Normal 3.2-5.5 [facility] Comment on above: Performed By: #### P ILLAR LIPID, PILLAR TSH, PILLAR CBC, PILLAR CMP #### [facility] [address] [place] [address] [place] #### NICOTINE QUAL #### [facility] , Albumin/Globulin [Mass ratio] 1.4 {ratio} Normal [facility] Comment on above: Performed By: #### P ILLAR LIPID, PILLAR TSH, PILLAR CBC, PILLAR CMP #### [facility] [address] [place] [address] #### NICOTINE QUAL #### [facility] , ALP [Catalytic activity/Vol] 72 U/L Normal 32-92 [facility] Comment on above: Performed By: #### P ILLAR LIPID, PILLAR TSH, PILLAR CBC, PILLAR CMP #### [facility] [address] [place] [address] [place] #### NICOTINE QUAL #### [facility] , ALT [Catalytic activity/Vol] 20 U/L Normal 10-60 [facility] Comment on above: Performed By: #### P ILLAR LIPID, PILLAR TSH, PILLAR CBC, PILLAR CMP #### [facility] [address] [place] [address] [place] #### NICOTINE QUAL #### [facility] , AST [Catalytic activity/Vol] 23 U/L Normal 10-42 [facility] Comment on above: Performed By: #### P ILLAR LIPID, PILLAR TSH, PILLAR CBC, PILLAR CMP #### [facility] [address] [place] [address] [place] #### NICOTINE QUAL #### [facility] , Bilirubin [Mass/Vol] 0.4 mg/dL Normal 0.3-1.2 [facility] Comment on above: Performed By: #### P ILLAR LIPID, PILLAR TSH, PILLAR CBC, PILLAR CMP #### [facility] [address] [place] [address] [place] #### NICOTINE QUAL #### [facility] , Calcium [Mass/Vol] 9.6 mg/dL Normal 8.2-10.2 [facility] Comment on above: Performed By: #### P ILLAR LIPID, PILLAR TSH, PILLAR CBC, PILLAR CMP #### [facility] [address] [place] [address] [place] #### NICOTINE QUAL #### [facility] , Chloride [Moles/Vol] 101 mmol/L Normal 95-114 [facility] Comment on above: Performed By: #### P ILLAR LIPID, PILLAR TSH, PILLAR CBC, PILLAR CMP #### [facility] [address] [place] [address] [place] #### NICOTINE QUAL #### [facility] , CO2 [Moles/Vol] 24.9 mmol/L Normal 22.0-30.0 [facility] Comment on above: Performed By: #### P ILLAR LIPID, PILLAR TSH, PILLAR CBC, PILLAR CMP #### [facility] [address] [place] [address] [place] #### NICOTINE QUAL #### [facility] , Creatinine [Mass/Vol] 0.72 mg/dL Normal 0.44-1.03 [facility] Comment on above: Performed By: #### P ILLAR LIPID, PILLAR TSH, PILLAR CBC, PILLAR CMP #### [facility] [address] [place] [address] [place] #### NICOTINE QUAL #### [facility] , Estimated GFR ( Katelin > 60 Normal [facility] Comment on above: Result Comment: GFR estimated reference range: According to KDOQI guidelines, <60 ml/min/1.73m2 is sufficient to diagnose a patient with chronic kidney disease. Performed By: #### P ILLAR LIPID, PILLAR TSH, PILLAR CBC, PILLAR CMP #### [facility] [address] [place] [address] [place] #### NICOTINE QUAL #### [facility] , Estimated GFR (Non- Am > 60 Normal [facility] Comment on above: Performed By: #### P ILLAR LIPID, PILLAR TSH, PILLAR CBC, PILLAR CMP #### [place] [address] [place] #### NICOTINE QUAL #### [facility] , Globulin (S) [Mass/Vol] 2.8 g/dL Normal [facility] Comment on above: Performed By: #### P ILLAR LIPID, PILLAR TSH, PILLAR CBC, PILLAR CMP #### [place] [address] [place] #### NICOTINE QUAL #### [facility] , Glucose [Mass/Vol] 91 mg/dL Normal 70-100 [facility] Comment on above: Performed By: #### P ILLAR LIPID, PILLAR TSH, PILLAR CBC, PILLAR CMP #### [place] [address] [place] #### NICOTINE QUAL #### [facility] , Potassium [Moles/Vol] 4.3 mmol/L Normal 3.5-5.1 [facility] Comment on above: Performed By: #### P ILLAR LIPID, PILLAR TSH, PILLAR CBC, PILLAR CMP #### [facility] [address] [place] [address] [place] #### NICOTINE QUAL #### [facility] , Protein [Mass/Vol] 6.8 g/dL Normal 6.1-7.9 [facility] Comment on above: Performed By: #### P ILLAR LIPID, PILLAR TSH, PILLAR CBC, PILLAR CMP #### [place] [address] [place] #### NICOTINE QUAL #### [facility] , Sodium [Moles/Vol] 134 mmol/L Low 136-146 [facility] Comment on above: Performed By: #### P ILLAR LIPID, PILLAR TSH, PILLAR CBC, PILLAR CMP #### [facility] [address] [place] [address] #### NICOTINE QUAL #### [facility] , Urea nitrogen [Mass/Vol] 10 mg/dL Normal 9-23 [facility] Comment on above: Performed By: #### P ILLAR LIPID, PILLAR TSH, PILLAR CBC, PILLAR CMP #### [facility] [address] [place] [address] #### NICOTINE QUAL #### [facility] , Employee Complete Blood Coun ton 01-07-2022 Basophils (Bld) [#/Vol] 0.0 10*3/uL Normal 0.0-0.2 [facility] Comment on above: Result Comment: PERF ORMED BY: [place] [address] PATHOLOGIST DELIVERY DRIVER ASSISTANT ROBERT WEBB M.D. Performed By: #### P ILLAR LIPID, PILLAR TSH, PILLAR CBC, PILLAR CMP #### [address] #### NICOTINE QUAL #### [facility] , Basophils/100 WBC (Bld) 0.5 % Normal . [facility] Comment on above: Performed By: #### P ILLAR LIPID, PILLAR TSH, PILLAR CBC, PILLAR CMP #### [facility] [address] [place] [address] [place] #### NICOTINE QUAL #### [facility] , Eosinophils (Bld) [#/Vol] 0.1 10*3/uL Normal 0.0-0.45 [facility] Comment on above: Performed By: #### P ILLAR LIPID, PILLAR TSH, PILLAR CBC, PILLAR CMP #### [place] [address] [place] #### NICOTINE QUAL #### [facility] , Eosinophils/100 WBC (Bld) 1.2 % Normal . [facility] Comment on above: Performed By: #### P ILLAR LIPID, PILLAR TSH, PILLAR CBC, PILLAR CMP #### [facility] [address] [place] [address] [place] #### NICOTINE QUAL #### [facility] , Erythrocyte distribution width (RBC) [Ratio] 16.0 % High 11.9-15.3 [facility] Comment on above: Performed By: #### P ILLAR LIPID, PILLAR TSH, PILLAR CBC, PILLAR CMP #### [address] #### NICOTINE QUAL #### [facility] , Hematocrit (Bld) [Volume fraction] 38.7 % Normal 34.0-46.4 [facility] Comment on above: Performed By: #### P ILLAR LIPID, PILLAR TSH, PILLAR CBC, PILLAR CMP #### [facility] [address] [place] [address] [place] #### NICOTINE QUAL #### [facility] , Hemoglobin (Bld) [Mass/Vol] 12.7 g/dL Normal 11.8-15.4 [facility] Comment on above: Performed By: #### P ILLAR LIPID, PILLAR TSH, PILLAR CBC, PILLAR CMP #### [place] [address] [place] #### NICOTINE QUAL #### [facility] , Lymphocytes (Bld) [#/Vol] 2.8 10*3/uL Normal 1.00-4.8 [facility] Comment on above: Performed By: #### P ILLAR LIPID, PILLAR TSH, PILLAR CBC, PILLAR CMP #### [facility] [address] [place] [address] [place] #### NICOTINE QUAL #### [facility] , Lymphocytes/100 WBC (Bld) 40.3 % Normal . [facility] Comment on above: Performed By: #### P ILLAR LIPID, PILLAR TSH, PILLAR CBC, PILLAR CMP #### [facility] [address] [place] [address] #### NICOTINE QUAL #### [facility] , MCH (RBC) [Entitic mass] 27.5 pg Normal 24.7-34.3 [facility] Comment on above: Performed By: #### P ILLAR LIPID, PILLAR TSH, PILLAR CBC, PILLAR CMP #### [facility] [address] [place] [address] #### NICOTINE QUAL #### [facility] , MCV (RBC) [Entitic vol] 84.2 fL Normal 80-100 [facility] Comment on above: Performed By: #### P ILLAR LIPID, PILLAR TSH, PILLAR CBC, PILLAR CMP #### [address] #### NICOTINE QUAL #### [facility] , Mean Corpuscular HGB Conc 32.7 g/dL Normal 32.0-35.0 [facility] Comment on above: Performed By: #### P ILLAR LIPID, PILLAR TSH, PILLAR CBC, PILLAR CMP #### [facility] [address] [place] [address] [place] #### NICOTINE QUAL #### [facility] , Monocytes (Bld) [#/Vol] 0.3 10*3/uL Normal 0.0-0.8 [facility] Comment on above: Performed By: #### P ILLAR LIPID, PILLAR TSH, PILLAR CBC, PILLAR CMP #### [facility] [address] [place] [address] #### NICOTINE QUAL #### [facility] , Monocytes/100 WBC (Bld) 5.0 % Normal . [facility] Comment on above: Performed By: #### P ILLAR LIPID, PILLAR TSH, PILLAR CBC, PILLAR CMP #### [facility] [address] [place] [address] [place] #### NICOTINE QUAL #### [facility] , Neutrophils (Bld) [#/Vol] 3.7 10*3/uL Normal 1.8-7.7 [facility] Comment on above: Performed By: #### P ILLAR LIPID, PILLAR TSH, PILLAR CBC, PILLAR CMP #### [facility] [address] [place] [address] #### NICOTINE QUAL #### [facility] , Neutrophils/100 WBC (Bld) 53.0 % Normal . [facility] Comment on above: Performed By: #### P ILLAR LIPID, PILLAR TSH, PILLAR CBC, PILLAR CMP #### [facility] [address] [place] [address] [place] #### NICOTINE QUAL #### [facility] , Nucleated RBC/100 WBC (Bld) [Ratio] 0.1 % Normal 0-0.5 [facility] Comment on above: Performed By: #### P ILLAR LIPID, PILLAR TSH, PILLAR CBC, PILLAR CMP #### [facility] [address] [place] [address] #### NICOTINE QUAL #### [facility] , Platelet mean volume (Bld) [Entitic vol] 7.8 fL Normal 6.3-10.7 [facility] Comment on above: Performed By: #### P ILLAR LIPID, PILLAR TSH, PILLAR CBC, PILLAR CMP #### [facility] [address] [place] [address] [place] #### NICOTINE QUAL #### [facility] , Platelets (Bld) [#/Vol] 297 10*3/uL Normal 150-450 [facility] Comment on above: Performed By: #### P ILLAR LIPID, PILLAR TSH, PILLAR CBC, PILLAR CMP #### [place] [address] [place] #### NICOTINE QUAL #### [facility] , RBC (Bld) [#/Vol] 4.60 10*6/uL Normal 3.60-5.00 [facility] Comment on above: Performed By: #### P ILLAR LIPID, PILLAR TSH, PILLAR CBC, PILLAR CMP #### [place] [address] [place] #### NICOTINE QUAL #### [facility] , WBC (Bld) [#/Vol] 6.9 10*3/uL Normal 4.5-11.0 [facility] Comment on above: Performed By: #### P ILLAR LIPID, PILLAR TSH, PILLAR CBC, PILLAR CMP #### [address] #### NICOTINE QUAL #### [facility] , Employee Lipid Profileon Cholesterol [Mass/Vol] 163 mg/dL Normal 140-200 [facility] Comment on above: Result Comment: Chol less than 200 mg/dl low risk Chol 201-239 mg/dl borderline risk Chol 240 mg/dl and greater high risk Performed By: #### P ILLAR LIPID, PILLAR TSH, PILLAR CBC, PILLAR CMP #### [place] [address] [place] #### NICOTINE QUAL #### [facility] , Cholesterol in HDL [Mass/Vol] 57 mg/dL Normal 35-85 [facility] Comment on above: Result Comment: HDL CHOL ATP-III CLASSIFICATION Cardiovascular Risk HDL > or equal to 60 mg/dL LOW HDL < 40 mg/dL HIGH Performed By: #### P ILLAR LIPID, PILLAR TSH, PILLAR CBC, PILLAR CMP #### [place] [address] [place] #### NICOTINE QUAL #### [facility] , Cholesterol.total/Ch olesterol in HDL [Mass ratio] 2.9 {ratio} Normal <5.0 [facility] Comment on above: Performed By: #### P ILLAR LIPID, PILLAR TSH, PILLAR CBC, PILLAR CMP #### [facility] [address] [place] [address] #### NICOTINE QUAL #### [facility] , LDL Cholesterol,Calculat ed 99 mg/dL Normal 0-100 [facility] Comment on above: Result Comment: LDL ATP III CLASSIFICATION LDL less than 100 mg/dL Optimal LDL 100-129 mg/dL Near or above optimal LDL 130-159 mg/dL Borderline high LDL 160-189 mg/dL High LDL greater than 189 mg/dL Very high Performed By: #### P ILLAR LIPID, PILLAR TSH, PILLAR CBC, PILLAR CMP #### [address] #### NICOTINE QUAL #### [facility] , Triglyceride w/Reflex 34 mg/dL Low 35-149 [facility] Comment on above: Result Comment: TRIG ATP III CLASSIFICATION TRIG less than 150 mg/dL Normal TRIG 150-199 mg/dL Borderline high TRIG 200-500 mg/dL High TRIG greater than 500 mg/dL Very high Standard traceable to the Center for Disease Conrtrol and Prevention (CDC) test method. Performed By: #### P ILLAR LIPID, PILLAR TSH, PILLAR CBC, PILLAR CMP #### [place] [address] [place] #### NICOTINE QUAL #### [facility] , VLDL CHOLESTEROL 6 mg/dL Normal [facility] Comment on above: Performed By: #### P ILLAR LIPID, PILLAR TSH, PILLAR CBC, PILLAR CMP #### [facility] [address] [place] [address] [place] #### NICOTINE QUAL #### [facility] , Employee Thyroid Stim Hormon jason 01-07-2022 Employee Thyroid Stim Hormone 2.14 u[iU]/mL Normal 0.45-5.33 [facility] Comment on above: Result Comment: PERF ORMED BY: [place] [address] PATHOLOGIST DELIVERY DRIVER ASSISTANT ROBERT WEBB M.D. Performed By: #### P ILLAR LIPID, PILLAR TSH, PILLAR CBC, PILLAR CMP #### [address] #### NICOTINE QUAL #### [facility] , Nicotine Metabolite, Qualon 01-07-2022 Nicotine Metabolite Negative Normal Cutoff=25 [facility] Comment on above: Result Comment: Perf ormed at: - [facility] [address] [id number] [employer] Supervisor: Josh Ortez MD, Phone: [phone] PERFORMED BY: [place] [address] PATHOLOGIST DELIVERY DRIVER ASSISTANT ROBERT WEBB M.D. Performed By: #### P ILLAR LIPID, PILLAR TSH, PILLAR CBC, PILLAR CMP #### [address] #### NICOTINE QUAL #### [facility] , [...] by: JACKIE WILLETT Date: 2020-12-16 14:53 Normal [facility] Vital Signs Date Time Vital Sign Value Performing Clinician Facility 07-08-2023 13:27-0500 Body mass index (BMI) [Ratio] 38.51 kg/m2 Arpita GARDNER Work Phone: [facility] 07-08-2023 13:27-0500 Body weight 116.57 kg Arpita Gusman KENDRA Work Phone: [facility] 07-08-2023 13:27-0500 Diastolic blood pressure 70 mm[Hg] Arpita Gusman KENDRA Work Phone: [facility] 07-08-2023 13:27-0500 Systolic blood pressure 112 mm[Hg] Arpita Gusman KENDRA Work Phone: [facility] 03-01-2022 09:00-0400 Body height 175.26 cm [facility] Other [facility] Other 03-01-2022 09:00-0400 Body mass index (BMI) [Ratio] 33.81 kg/m2 [facility] Other [facility] Other 03-01-2022 09:00-0400 Body temperature 97.9 [degF] [facility] Other [facility] Other 03-01-2022 09:00-0400 Body weight 103.87 kg [facility] Other [facility] Other 03-01-2022 09:00-0400 Diastolic blood pressure 80 mm[Hg] [facility] Other [facility] Other 03-01-2022 09:00-0400 Respiratory rate 20 /min [facility] Other [facility] Other 03-01-2022 09:00-0400 SaO2% (BldA) [Mass fraction] 97 % [facility] Other [facility] Other 03-01-2022 09:00-0400 Systolic blood pressure 118 mm[Hg] [facility] Other [facility] Other 01-18-2022 09:45-0400 Body height 175.26 cm [facility] Other [facility] Other 01-18-2022 09:45-0400 Body mass index (BMI) [Ratio] 32.93 kg/m2 [facility] Other [facility] Other 01-18-2022 09:45-0400 Body temperature 97.3 [degF] [facility] Other [facility] Other 01-18-2022 09:45-0400 Body weight 101.15 kg [facility] Other [facility] Other 01-18-2022 09:45-0400 Diastolic blood pressure 72 mm[Hg] [facility] Other [facility] Other 01-18-2022 09:45-0400 Respiratory rate 20 /min [facility] Other [facility] Other 01-18-2022 09:45-0400 SaO2% (BldA) [Mass fraction] 98 % [facility] Other [facility] Other 01-18-2022 09:45-0400 Systolic blood pressure 112 mm[Hg] [facility] Other [facility] Other 03-05-2021 16:15-0400 Body height 175.26 cm [facility] Other [facility] Other 03-05-2021 16:15-0400 Body mass index (BMI) [Ratio] 35.14 kg/m2 [facility] Other [facility] Other 03-05-2021 16:15-0400 Body weight 107.96 kg [facility] Other [facility] Other 03-05-2021 16:15-0400 Diastolic blood pressure 68 mm[Hg] [facility] Other [facility] Other 03-05-2021 16:15-0400 Respiratory rate 20 /min [facility] Other [facility] Other 03-05-2021 16:15-0400 SaO2% (BldA) [Mass fraction] 98 % [facility] Other [facility] Other 03-05-2021 16:15-0400 Systolic blood pressure 110 mm[Hg] [facility] Other [facility] Other Encounters Encounter Date Encounter Type Care [...] 09-10-2022 End: 09-10-2022 ambulatory Susanne Huitron Other [facility] Other Start: 09-10-2022 Telephone encounter Susanne Soraidarachel Perez [facility] Start: 08-21-2022 End: 08-21-2022 ambulatory Dontrell Gallegos Other [facility] Other Start: 08-21-2022 Telephone encounter Dontrell Perez [facility] Start: 08-09-2022 End: 08-09-2022 ambulatory [facility] Other [facility] Other Start: 08-09-2022 Telephone encounter [facility] Start: 08-07-2022 End: 08-07-2022 ambulatory Urban M. Max Facility:[facility] Start: 08-06-2022 End: 08-06-2022 ambulatory [facility] Other [facility] Other Start: 08-06-2022 Telephone encounter [facility] Start: 03-26-2022 End: 03-26-2022 ambulatory Urban Max Other [facility] Other Start: 03-26-2022 Telephone encounter [facility] Start: 03-01-2022 End: 03-01-2022 ambulatory [facility] Other [facility] Other Start: 03-01-2022 Encounter for genera l adult medical examination without abnormal findings [facility] Start: 03-01-2022 Periodic preventive med est patient 18-39 yrs [facility] Start: 02-13-2022 End: 02-13-2022 ambulatory Georgie Disla Other [facility] Other Start: 09-21-2022 Nursing evaluation o f patient and report Georgie Disla [facility] Start: 02-11-2022 End: 02-11-2022 ambulatory Georgie Disla Other [facility] Other Start: 02-11-2022 Nursing evaluation o f patient and report Georgie Disla [facility] Start: 01-18-2022 End: 01-18-2022 ambulatory Urban Max Other [facility] Other Start: 01-18-2022 Office outpatient visit 15 minutes [facility] Start: 01-12-2022 End: 01-12-2022 ambulatory Georgie Disla Other [facility] Other Start: 01-12-2022 Nursing evaluation o f patient and report Georgie Disla [facility] Start: 01-07-2022 End: 01-07-2022 ambulatory Asim Garber Facility:[facility] Start: 03-05-2021 Encounter for genera l adult medical examination without abnormal findings [facility] Start: 03-05-2021 Periodic preventive med est patient 18-39 yrs [facility] Start: 12-16-2020 End: 12-16-[address] DOCTOR RAMIREZ Facility:[facility] Procedures Date Procedure Procedure Detail Performing Clinician Start: 07-08-2023 Urnls dip stick/tabl et rgnt non-auto w/o micrscp rApita GARDNER Work Phone: Start: 08-07-2022 Piperacillin/tazobactam [facility] Other Plan of Treatment Date Care Activity Detail Author Start: 01-24-2023 Influenza vaccination Influenza Vacc ine (#1) [facility] Immunizations Immunization Date Immunization Notes Care Provider Serjio [place] 02-27-2021 influenza, seasonal, injectable [facility] Other [facility] Other 02-29-2020 influenza, injectable, quadrivalent, contains preservative [facility] Other [facility] Other 02-29-2020 influenza virus vaccine, unspecified formulation Arpita GARDNER Work Phone: [facility] 02-07-2020 influenza, injectable, quadrivalent, contains preservative Patient Objection [facility] Other [facility] Other NEGATED: Highlighted row has not occurred!02-07-2020 influenza, injectable, quadrivalent, contains preservative Patient Objection Georgie Disla Other [facility] Other Payers Date Payer Category Payer Medicaid [facility] [employer] [place] [id number] 2023-Present [address] [place] [address] [id number] 2022 Medicaid [id number] [address] [employer] [id number] 2022-Present [address] [place] [address] [id number] 2022 Unknown [id number] 2021 Self-pay 1994 Unknown [id number] 1994 Unknown [id number] 1994 Unknown [id number] 1994 Unknown [id number] 1994 Unknown [id number] 1994 Unknown [id number] 1959 Unknown [id number] Unknown [id number] Unknown [id number] Social History Date Type Detail Facility Unknown if ever smoked [facility] Other Start: 12-03-2022 Sex Assigned At N [facility] Other Start: 12-01-2022 Tobacco smoking status NMIS Never smoked tobacco [facility] Start: 07-08-2023 Alcohol intake Current drinke r of alcohol (finding) [facility] Start: 12-03-2022 History of Social function [facility] Start: 12-01-2022 Alcohol Comment occasional [facility] Start: 11-22-2022 [facility] Start: 1995 Sex Assigned At Not on file N [facility] Clinical Notes 03-05-2021 to 07-08-2023 KENDRA [...] of: KENDRA [place] documented in this encounter [facility] 08-21-2022 Evaluation note Encounter Date Diagnosis Assessment Notes Jul, Acute non-recurrent frontal sinusitis (ICD-10 - J01.10) [facility] Other 03-14-2023 Evaluation note* Encounter Date Diagnosis Assessment Notes Treatment Notes Treatment Clinical Notes Jul, Dysuria (ICD-10 - R30.0) [facility] Other 11-01-2022 Evaluation note* Encounter Date Diagnosis Assessment Notes Treatment Notes Treatment Clinical Notes Mar, Anxiety (ICD-10 - F41.9) [facility] Other 10-07-2022 Evaluation note* Encounter Date Diagnosis Assessment Notes Treatment Notes Treatment Clinical Notes Feb, Encntr for general adult medical exam w/o abnormal findings (ICD-10 - Z00.00) Feb, Other No change today...Continue as is...FU 6 months.... [facility] Other 09-21-2022 Evaluation note* Encounter Date Diagnosis Assessment Notes Treatment Notes Treatment Clinical Notes Jan, Contact with and (suspected) exposure to other viral communicable diseases (ICD-10 - Z20.828) [facility] Other 09-19-2022 Evaluation note* Encounter Date Diagnosis Assessment Notes Treatment Notes Treatment Clinical Notes Jan, Contact with and (suspected) exposure to other viral communicable diseases (ICD-10 - Z20.828) [facility] Other 08-26-2022 Evaluation note* Encounter Date Diagnosis Assessment Notes Treatment Notes Treatment Clinical Notes Dec, Anxiety (ICD-10 - F41.9) E Rx sent. Lengthy discussion with patient that I think we need to try something than just a straight SSRI. We will see patient back in review. We talked about potential side effects as well as outcomes. She will call with any concerns. [facility] Other 08-20-2022 Evaluation note* Encounter Date Diagnosis Assessment Notes Treatment Notes Treatment Clinical Notes Dec, Contact with and (suspected) exposure to other viral communicable diseases (ICD-10 - Z20.828) [facility] Other 10-11-2021 Evaluation note* Encounter Date Diagnosis Assessment Notes Treatment Notes Treatment Clinical Notes Feb, Encntr for general adult medical exam w/o abnormal findings (ICD-10 - Z00.00) Feb, Other No change today...Continue as is...FU PRN/Yearly... [facility] Other Evaluation noteNo InformationNort [employer] Other Evaluation note* Diagnosis Third trimester state, incidental documented in this encounter [facility] N[facility]ative - Reported* Type Description Date Medical History Hx of MRSA Medical History anxiety Surgical History tonsillectomy and adenoidectomy 2012 Surgical History c-sections 2009 and 2016 Hospitalization History C Sections [facility] Other Summary Purpose Family History No Family History Records FoundNo Family History Records FoundNo Family History Records Found Advance Directives No Advanced Directives Records FoundNo Advanced Directives Records FoundNo Advanced Directives Records Found Additional Source Comments INFORMATION SOURCE (unrecogn ized section and content) DATE CREATED AUTHOR 12/19/2020 Neha rick DATE CREATED AUTHOR AUTHOR'S ORGANIZ ATION 08/09/2022 [facility] DATE CREATED AUTHOR AUTHOR'S ORGANIZ ATION 07/10/2023 [facility] EPIC REASON FOR VISIT (unrecogniz ed section and content) Reason Comments Routine Visit Care Teams (unrecognized sec tion and content) Systems Spec Relationship Specialty Start Date End Date Urban Santana MD [address] [place] [id number] PCP - General Family Medicine 11/18/22 FOR [...] BE BASED ON THE PRIMARY CLINICAL RECORDS. [facility]. provides no warranty or guarantee of the accuracy or completeness of information in this document.
[2023-08-04] MEDS: 0.9 % SODIUM CHLORIDE 1,000 ML 1000 ML IV ×2 (20:42→21:27)
[2023-08-04 21:08] LABS: Basophils Percent Auto 0.2 % (0.2-2.0); Eosinophils Absolute Auto 0.1 10^3/uL (0.0-0.7); Eosinophils Percent Auto 0.4 % (0.9-7.0); Hematocrit 37.3 % (36.0-48.0); Hemoglobin 12.1 g/dL (12.0-16.0); Immature Granulocytes Abs Auto 0.04 10^3/uL (0.00-0.03); Immature Granulocytes Pct Auto 0.3 % (0.0-0.5); Lymphocytes Absolute Auto 3.4 10^3/uL (1.2-3.8); Lymphocytes Percent Auto 28.8 % (20.5-60.0); Mean Corpuscular HGB Conc 32.4 g/dL (29.9-35.2); Mean Corpuscular Hemoglobin 27.8 pg (26.7-34.0); Mean Corpuscular Volume 85.6 fL (81.0-99.0); Monocytes Absolute Auto 0.5 10^3/uL (0.3-0.8); Monocytes Percent Auto 4.6 % (1.7-12.0); Neutrophils Absolute Auto 7.8 10^3/uL (1.4-6.5); Neutrophils Percent Auto 65.7 % (43.0-75.0); Platelet Count 228 10^3/uL (150-450); Red Blood Count 4.36 10^6/uL (4.20-5.40); Red Cell Distribution Width 13.7 % (11.0-15.0); White Blood Count 11.9 10^3/uL (4.0-11.0)
--- NOTE | 2023-08-04 21:17 | P.OBHP_ITS ---
OB - H&P: HPI History of Present Illness Chief complaint: US BPP - NST @ 16:00 : 3 Para: 2 Gestational age based on last menstrual period: 38 3/7wks Narrative: recurrent decelerations History of Present Dating criteria: LMP confirmed by 1st trimester US care: good care Ultrasounds: normal 1st trimester US Medical complications OB: none Labs Blood type: B (+) positive Rubella: immune RPR/VDLR: nonreactive GBS status: negative HBsAG: negative Review of Systems ROS Status of ROS: 10 or more systems reviewed and unremarkable except as noted in history and below [facility] Social History Highest level of school completed/degree received: some college, no degree Meds Home Medications and Allergies Home Medications Medication Instructions Recorded Confirmed Type ferrous sulfate 325 mg (65 mg 325 mg PO DAILY 06/26/23 07/03/23 History iron) tablet (Feosol) magnesium 200 mg tablet 400 mg PO DAILY 06/26/23 07/03/23 History vits,calcium 21-iron fum 1 tab PO DAILY 06/26/23 07/03/23 History 14 mg iron-folic acid 400 mcg tablet ( Complete) Allergies Allergy/AdvReac Type Severity Reaction Status Date / Time No Known Drug Allergies Allergy Verified 06/26/23 16:17 Exam Constitutional Vital Signs, click to edit/add: Last Vital Signs Temp 98.2 F 08/04/23 17:44 Pulse 95 H 08/04/23 17:44 Resp 16 08/04/23 17:44 BP 114/75 08/04/23 17:44 Documenting provider has reviewed patient's vital signs: yes Common normals: no apparent distress Respiratory Common normals: normal respiratory effort and clear to auscultation bilaterally Cardio Common normals: regular rate and regular rhythm GI Common normals: Normal to inspection, nondistended, normoactive bowel sounds present Extremity Common normals: no calf tenderness Results Labs Labs: Short CBC 08/04/23 Range/Units 20:40 WBC 11.9 H (4.0-11.0) 10^3/uL Hgb 12.1 (12.0-16.0) g/dL Hct 37.3 (36.0-48.0) % Plt Count 228 (150-450) 10^3/uL OB - A/P Assessment and Plan (1) IUP (intrauterine ), incidental: Plan iup at 38 3/7wks, recurrent decelerations, labor ctxns, previous c/s, lga-will perform c/s, mmc reviewed, procedure reviewed, consent obtained, iv, iv abx, cont efm
[2023-08-04] MEDS: CITRIC ACID/SODIUM CITRATE 30 ML SOLUTION ORACIT SHOHL'S SOLN PO (21:19)
[2023-08-04] MEDS: FAMOTIDINE/PF 20 MG/2 ML VIAL IV (21:20)
[2023-08-04] MEDS: CEFAZOLIN SODIUM/DEXTROSE,ISO 2 GM/50 ML PIGGYBACK IV (21:21)
[2023-08-04 21:26] LABS: Amphetamine Screen Urine NEGATIVE (NEGATIVE); Barbiturates Screen Urine NEGATIVE (NEGATIVE); Benzodiazepines Screen Urine NEGATIVE (NEGATIVE); Buprenorphine Screen Urine NEGATIVE (NEGATIVE); Cannabinoid Screen Urine NEGATIVE (NEGATIVE); Cocaine Screen Urine NEGATIVE (NEGATIVE); Methadone Screen Urine NEGATIVE (NEGATIVE); Methamphetamines Screen Urine NEGATIVE (NEGATIVE); Opiate Screen Urine NEGATIVE (NEGATIVE); Oxycodone Screen Urine NEGATIVE (NEGATIVE); Phencyclidine Screen Urine NEGATIVE (NEGATIVE); Tricyclic Antidepressant Urine NEGATIVE (NEGATIVE)
[2023-08-04] MEDS: LACTATED RINGER'S SOLUTION 1,000 ML 50 ML IV (22:03)
--- NOTE | 2023-08-04 22:25 | P.OBPRC_ITS ---
Procedure Pre-op/Post-op diagnoses: Pre-Op/Post-Op Diagnoses Operation Date: 08/04/23 22:00 <No data on this case meets the specified criteria> Procedure: Procedures Operation Date: 08/04/23 22:00 Actual Procedure Side Surgeon p Not Applicable Jesus Godinez DO Regulatory Affairs Coordinator: Abby Centeno Estimated blood loss (mL): 600 Disposition: floor Anesthesia type: Spinal
--- NOTE | 2023-08-04 22:25 | PM.ONB ---
Brief Operative Note Date of procedure: 08/04/23 Pre-op diagnosis: iup at 38 3/7wks, recurrent decelerations, lga, previous c/s Post-op diagnosis: same as pre-op Procedure: NAME OF PROCEDURE: [ section ] PROCEDURE: Patient was taken back to the Operating Room where she was given a spinal anesthesia with Duramorph without difficulty. She was prepped and draped in the normal sterile fashion. A Pfannenstiel skin incision was then made 2 cm above the symphysis pubis and carried down to underlying rectus fascia using a Bovie. The fascia was incised in the midline and extended laterally using [place] scissors. Two Nevin clamps were placed on the superior aspect of the fascia and dissected off the underlying rectus muscles. The same was performed on the inferior aspect as well. The muscles were then in the midline. Peritoneum was identified and entered bluntly. The peritoneum was then extended superiorly and inferiorly with good visualization of the bladder. The bladder blade was inserted. A low transverse incision was made on the patient's uterus and extended laterally digitally. The infant was then delivered atraumatically after the bladder blade was removed in the cephalic position. The cord was clamped and cut. Cord blood was obtained. The infant was handed off to awaiting team. The patient's placenta was spontaneously delivered. The uterus was then exteriorized. The uterus was cleared of all clots and debris. The bladder blade was reinserted. The patient's uterine incision was closed using #0 Vicryl in a running lock fashion. Excellent hemostasis was assured. The uterus was then returned to the patient's abdomen. The patient's abdomen was copiously irrigated using warm saline. Peritoneal gutters were cleared of all clots and debris. Again excellent hemostasis was assured. The patient's peritoneum was closed using 3-0 Vicryl in a running fashion. The patient's fascia was closed using #0 Vicryl in a running fashion. The patient's skin was closed using 4-0 Vicryl subcuticularly. The patient tolerated the procedure well. Sponge, lap, and needle counts were correct x2. The patient was taken to the Recovery Room in stable condition. Anesthesia: spinal Surgeon: Jesus Godinez Dyehouse Worker: Abby Centeno Estimated blood loss (mL): 600 Pathology: none sent Condition: stable Disposition: floor Urinary Catheter Management Urinary Catheter Management Urethral: Cath placed during this visit: yes Urethral indwelling: No Insertion date: 08/04/23 Insertion time: 21:15
[2023-08-04] MEDS: OXYTOCIN/0.9 % SODIUM CHLORIDE 20 UNITS/1,000 ML PLAST..BAG 200 UNIT IV (22:40)
[2023-08-05] VITALS (25 sets, daily range): BP systolic 94–122; BP diastolic 52–65; PULSE 62–87; RESP 10–22; TEMP 36.6–36.8; O2SAT 95–99
[2023-08-05] MEDS: CEFAZOLIN SODIUM/DEXTROSE,ISO 2 GM/50 ML PIGGYBACK IV (03:47)
[2023-08-05] MEDS: KETOROLAC TROMETHAMINE 30 MG/ML VIAL IVP (04:19)
[2023-08-05 06:21] LABS: Basophils Percent Auto 0.2 % (0.2-2.0); Eosinophils Percent Auto 0.1 % (0.9-7.0); Hematocrit 33.5 % (36.0-48.0); Hemoglobin 10.7 g/dL (12.0-16.0); Immature Granulocytes Abs Auto 0.09 10^3/uL (0.00-0.03); Immature Granulocytes Pct Auto 0.5 % (0.0-0.5); Lymphocytes Absolute Auto 1.7 10^3/uL (1.2-3.8); Mean Corpuscular HGB Conc 31.9 g/dL (29.9-35.2); Mean Corpuscular Hemoglobin 27.9 pg (26.7-34.0); Mean Corpuscular Volume 87.2 fL (81.0-99.0); Mean Platelet Volume 10.4 fL (9.5-13.5); Monocytes Absolute Auto 0.5 10^3/uL (0.3-0.8); Monocytes Percent Auto 2.8 % (1.7-12.0); Neutrophils Absolute Auto 16.9 10^3/uL (1.4-6.5); Neutrophils Percent Auto 87.4 % (43.0-75.0); Platelet Count 199 10^3/uL (150-450); Red Blood Count 3.84 10^6/uL (4.20-5.40); Red Cell Distribution Width 13.8 % (11.0-15.0); White Blood Count 19.3 10^3/uL (4.0-11.0)
--- NOTE | 2023-08-05 07:44 | PM.OBPN ---
OB - PN: Subj Subjective Patient comments: no complaints [place] status: doing well and well (nurses assisting with ) feeding status: exclusively Exam Constitutional Vital Signs, click to edit/add: Last Vital Signs Temp 98.2 F 08/05/23 02:43 Pulse 72 08/05/23 01:13 Resp 16 08/05/23 02:43 BP 101/53 08/05/23 03:42 Pulse Ox 97 08/05/23 01:13 O2 Del Method Room Air 08/05/23 01:10 Documenting provider has reviewed patient's vital signs: yes Common normals: no apparent distress and oriented x3 HENMT Common normals: normocephalic Eye Common normals: EOMs intact bilaterally General eye: normal appearance of both eyes Neck & C-Spine Common normals: full ROM Lymph Lymphatic: no lymphadenopathy noted Chest Common normals: inspection of chest normal Respiratory Common normals: normal respiratory effort Effort & inspection: able to speak in complete sentences Auscultation: clear to auscultation bilaterally Cardio Common normals: regular rate and regular rhythm Rate: regular rate Rhythm: regular rhythm GI Common normals: Normal to inspection, nondistended, normoactive bowel sounds present Inspection: normal to inspection Auscultation: normoactive bowel sounds Palpation: soft Common normals: no CVA tenderness Back & Pelvis Common normals: no CVA tenderness Thoracic spine/upper back: normal to inspection Extremity Common normals: normal to inspection Neuro Common normals: oriented x3 Sensorium/orientation: awake, alert, oriented to person, oriented to place and oriented to time Psych Common normals: mental status grossly normal Results Labs Labs: Short CBC 08/04/23 08/05/23 Range/Units 20:40 05:39 WBC 11.9 H 19.3 H (4.0-11.0) 10^3/uL Hgb 12.1 10.7 L (12.0-16.0) g/dL Hct 37.3 33.5 L (36.0-48.0) % Plt Count 228 199 (150-450) 10^3/uL Urinary Catheter Management Urinary Catheter Management Urethral: Cath placed during this visit: yes Urethral indwelling: No Insertion date: 08/04/23 Insertion time: 21:15 OB - PN: A/P Assessment and Plan (1) IUP (intrauterine ), incidental: Plan - day: 1 Plan: routine postop care Time Spent with Patient Time: Total time spent is greater than 50% in coordination of care (as documented) at patient's floor/unit and/or counseling patient: Total time spent with greater than 50% in coordination of care (as documented) at patient's floor/unit and/or counseling patient: less than 15 minutes
[2023-08-05] MEDS: ONDANSETRON 4 MG RAPDIS TABLET PO (09:06)
[2023-08-05] MEDS: DOCUSATE SODIUM 100 MG CAPSULE PO ×2 (09:06→22:27)
[2023-08-05] MEDS: IBUPROFEN 400 MG TABLET 800 MG PO ×2 (11:53→19:55)
[2023-08-05] MEDS: OXYCODONE HCL/ACETAMINOPHEN 5MG/325MG 1 TAB PO ×2 (17:29→22:26)
[2023-08-05] MEDS: ENOXAPARIN SODIUM 40 MG/0.4 ML SYRINGE SUBQ (17:30)
[2023-08-06] MEDS: IBUPROFEN 400 MG TABLET 800 MG PO (05:11)
--- NOTE | 2023-08-06 07:21 | PM.OBPN ---
OB - PN: Subj Subjective Patient comments: no complaints and pain well controlled [place] status: doing well Exam Constitutional Vital Signs, click to edit/add: Last Vital Signs Temp 97.9 F 08/05/23 22:30 Pulse 83 08/05/23 22:31 Resp 16 08/05/23 22:30 BP 116/57 08/05/23 22:31 Pulse Ox 97 08/05/23 16:30 O2 Del Method Room Air 08/05/23 22:30 Documenting provider has reviewed patient's vital signs: yes Common normals: no apparent distress Respiratory Common normals: normal respiratory effort and clear to auscultation bilaterally Cardio Common normals: regular rate and regular rhythm GI Common normals: Normal to inspection, nondistended, normoactive bowel sounds present Extremity Common normals: no clubbing, cyanosis or edema Urinary Catheter Management Urinary Catheter Management Urethral: Cath placed during this visit: yes, but has since been removed by the nurse Urethral indwelling: No Insertion date: 08/04/23 Insertion time: 21:15 Removal date: 08/05/23 Removal time: 10:10 OB - PN: A/P Assessment and Plan (1) IUP (intrauterine ), incidental: Plan - day: 2 Plan: routine postop care, discharge home and other (1wk) Time Spent with Patient Time: Total time spent is greater than 50% in coordination of care (as documented) at patient's floor/unit and/or counseling patient: Total time spent with greater than 50% in coordination of care (as documented) at patient's floor/unit and/or counseling patient: less than 15 minutes
[2023-08-06 08:00] VITALS: RESP 18
[2023-08-06 08:22] VITALS: BP 110/53; PULSE 68
[2023-08-06] MEDS: DOCUSATE SODIUM 100 MG CAPSULE PO (08:47)
--- NOTE | 2023-08-06 09:27 | PC.NURSE ---
[id number] Mom having difficulty breast feeding, assisted with latch. Hand breast pump given to mom. Advised by Play Therapist to supplement with Similac Sensitive.
[2023-08-06 09:31] VITALS: RESP 18; TEMP 36.7
[2023-08-06] MEDS: OXYCODONE HCL/ACETAMINOPHEN 5MG/325MG 1 TAB PO (11:17)
--- NOTE | 2023-08-06 14:01 | DS_ITS ---
DISCHARGE DATE:? ?08/06/2023 ? PRIMARY DIAGNOSES: 1.? Intrauterine at 37 3/7 weeks. 2.? Recurrent decelerations. 3.? Large for gestational age. 4.? Previous . ? PROCEDURE:? section. ? HOSPITAL COURSE:? As expected.? Please see chart for full details.? ? LABORATORY DATA:? Please see chart. ? COMPLICATIONS:? None. ? DISCHARGE CONDITION:? Stable. ? CONSULTATION:? Anesthesia. ? DISCHARGE INSTRUCTIONS: 1.? Diet:? Regular. 2.? Medications: a.? Percocet 5/325 one to two p.o. every 4-6 hours p.r.n. pain. b.? Motrin 800 one p.o. every 8 hours p.r.n. pain. 3.? Followup in one week. Restrictions:? Pelvic rest for 6 weeks.? No heavy lifting.? May drive when pain free and no longer on narcotics. MTDD
== END 2023-08-06 14:01 | disposition home or self-care (01) | DRG 788 ==
LOC: US 19:22 → FBC 19:22
PROVIDERS: Admitting Provider Obstetrics & Gynecology; PCP Family Medicine; Visit Provider Obstetrics & Gynecology
PROC: 10D00Z1 Extraction of Products of Conception, Low, Open Approach (ICD-10-PCS; CPT 59514; principal; 2023-08-04 22:00)
DX: O34.219 Maternal care for unspecified type scar from previous cesarean delivery (principal); O36.63X0 Maternal care for excessive fetal growth, third trimester, not applicable or unspecified; O76 Abnormality in fetal heart rate and rhythm complicating labor and delivery; Z3A.38 38 weeks gestation of pregnancy; Z37.0 Single live birth
CPT/HCPCS: 36415; 51702; 76818; 80307; 85025; 86850; 86900; 86901; 94667; 94668; 96372; 96374; J1094

== ENCOUNTER 2024-03-31 16:32 | Outpatient (OUT) | payer OTHER, SELFPAY ==
[2024-03-31 17:36] LABS: HCG Quantitative 3710 mIU/mL
== END 2024-03-31 16:33 | disposition home or self-care (01) ==
PROVIDERS: PCP Family Medicine; Visit Provider Obstetrics & Gynecology
DX: O43.219 Placenta accreta, unspecified trimester (principal); O46.90 Antepartum hemorrhage, unspecified, unspecified trimester; N93.9 Abnormal uterine and vaginal bleeding, unspecified; Z3A.00 Weeks of gestation of pregnancy not specified
CPT/HCPCS: 36415; 84702

== ENCOUNTER 2024-04-02 12:05 | Outpatient (OUT) | payer OTHER, SELFPAY ==
--- OUTSIDE RECORDS SUMMARY | 2024-04-02 12:12 | XMS_ITS | CCD ---
Author Organization [facility] Care Team Providers Care Heel Reducer Name Role Phone TARYN, DR GA Primary Care Unavailable MAGUE, DR MAUDE Pathak Admitting Unavailchristiana BOWSER, DR MAUDE Pathak Consulting Unavailchristiana BOWSER, DR MAUDE Pathak Attending UnavailJackie Morrow Consulting Unavailable Urban Santana Unavailable Georgie Disla Unavailable Dontrell Gallegos Unavailable Susanne Huitron Unavailable Urban Santana MD Primary Care Provider DO Urban Santana Primary Care Provider DO Tashi Tom Jr Attending Provider [phone] Tashi Tom Jr Attending Unavailable Tashi Tom Jr Admitting Unavailable Urban Santana Primary Care Unavailable UZMA, ARPITA Attending Unavailable UZMA, RAPITA Attending Unavailable UZMA, ARPITA Attending Unavailable UZMA, ARPITA Attending Unavailable TALITA LEARY Attending Unavailable UZMA, ARPITA Attending Unavailable UZMA, ARPITA Attending Unavailable UZMA, ARPITA Attending Unavailable UZMA, ARPITA Attending Unavailable UZMA ARPITA Attending Unavailable ARPITA GUSMAN Attending Unavailable Medications [...] Active Start: 01-18-2022 take 1 capsule by [facility] every twenty-four hours DULoxetine HCl 20 MG [...] by mouth in the morning. 30 capsule 02/13/2023 02/13/2024 Active Multivitamin/Iron (9 sources) Multivitamin/Iro [...] te Episodic/Chronic Genitourinary symptoms and ill-defined conditions (3 sources) Dysuria; Translations: [Malodorous urine] Onset: 11-18-2022 Episodic Joint disorders and dislocations; trauma-related (2 sources) Recurrent dislocation of shoulder region; Translations: [Recurrent dislocation, unspecified shoulder] Onset: 02-21-2009 12-03-2022 Episodic Other screening for suspected conditions (not mental disorders or infectious disease) (2 sources) Liver function tests abnormal; Translations: [Abnormal results of liver function studies] Onset: 11-18-2022 11-18-2022 Episodic Results Test Name Value Interpretation Reference Range Facility Alanine aminotransferase [En zymatic activity/volume] in Serum or PlasmaOrdered By: Georgie Calvo on 09-18-2023 ALT [Catalytic activity/Vol] 23 U/L 7-52 [facility] Albumin [Mass/volume] in Ser um or Plasma by Bromocresol green (BCG) dye binding methoOrdered By: Georgie Calvo on 09-18-2023 Albumin BCG dye [Mass/Vol] 4.7 g/dL 3.5-5.7 [facility] Alkaline phosphatase [Enzyma tic activity/volume] in Serum or PlasmaOrdered By: Georgie Calvo on 09-18-2023 ALP [Catalytic activity/Vol] 72 U/L 34-104 [facility] Aspartate aminotransferase [ Enzymatic activity/volume] in Serum or PlasmaOrdered By: Georgie Calvo on 09-18-2023 AST [Catalytic activity/Vol] 26 U/L 13-39 [facility] Bilirubin.total [Mass/volume ] in Serum or PlasmaOrdered By: Georgie Calvo on 09-18-2023 Bilirubin [Mass/Vol] 0.7 mg/dL 0.3-1.0 [facility] CMP with reflex to A1Con Albumin [Mass/Vol] 4.7 g/dL Normal 3.5-5.7 [facility] Comment on above: Performed By: #### N ICOTINE QUAL #### [facility] , #### CMP wRFX A1C, EBS LIPID #### [place] [address] Albumin/Globulin [Mass ratio] 2.0 {ratio} Normal [facility] Comment on above: Performed By: #### N ICOTINE QUAL #### [facility] , #### CMP wRFX A1C, EBS LIPID #### [facility] [address] [place] [address] [facility] ALP [Catalytic activity/Vol] 72 U/L Normal 34-104 [facility] Comment on above: Performed By: #### N ICOTINE QUAL #### [facility] , #### CMP wRFX A1C, EBS LIPID #### [facility] [address] [place] [id number] [place] ALT [Catalytic activity/Vol] 23 U/L Normal 7-52 [facility] Comment on above: Performed By: #### N ICOTINE QUAL #### [facility] , #### CMP wRFX A1C, EBS LIPID #### [facility] [address] [place] [address] [place] Anion gap [Moles/Vol] 12.5 mmol/L Normal 6.0-15.0 [facility] Comment on above: Performed By: #### N ICOTINE QUAL #### [facility] , #### CMP wRFX A1C, EBS LIPID #### [facility] [address] [place] [address] AST [Catalytic activity/Vol] 26 U/L Normal 13-39 [facility] Comment on above: Performed By: #### N ICOTINE QUAL #### [facility] , #### CMP wRFX A1C, EBS LIPID #### [facility] [address] [place] [address] [place] Bilirubin [Mass/Vol] 0.7 mg/dL Normal 0.3-1.0 [facility] Comment on above: Performed By: #### N ICOTINE QUAL #### [facility] , #### CMP wRFX A1C, EBS LIPID #### [facility] [address] [place] [address] [place] Calcium [Mass/Vol] 10.1 mg/dL Normal 8.6-10.3 [facility] Comment on above: Performed By: #### N ICOTINE QUAL #### [facility] , #### CMP wRFX A1C, EBS LIPID #### [facility] [address] [place] [address] [place] Chloride [Moles/Vol] 101 mmol/L Normal 98-107 [facility] Comment on above: Performed By: #### N ICOTINE QUAL #### [facility] , #### CMP wRFX A1C, EBS LIPID #### [facility] [address] [place] [address] [place] CO2 [Moles/Vol] 28.5 mmol/L Normal 21.0-31.0 [facility] Comment on above: Performed By: #### N ICOTINE QUAL #### [facility] , #### CMP wRFX A1C, EBS LIPID #### [place] [address] [place] Creatinine [Mass/Vol] 0.79 mg/dL Normal 0.60-1.20 [facility] Comment on above: Performed By: #### N ICOTINE QUAL #### [facility] , #### CMP wRFX A1C, EBS LIPID #### [place] [address] [place] GFR/1.73 sq M.predicted MDRD (S/P/Bld) [Vol rate/Area] mL/min/{1.73_m2} Normal [facility] Comment on above: Performed By: #### N ICOTINE QUAL #### [facility] , #### CMP wRFX A1C, EBS LIPID #### [place] [address] [place] Globulin (S) [Mass/Vol] 2.4 g/dL Normal [facility] Comment on above: Performed By: #### N ICOTINE QUAL #### [facility] , #### CMP wRFX A1C, EBS LIPID #### [place] [address] [place] Glucose [Mass/Vol] 78 mg/dL Normal 70-100 [facility] Comment on above: Performed By: #### N ICOTINE QUAL #### [facility] , #### CMP wRFX A1C, EBS LIPID #### [place] [address] [place] Potassium [Moles/Vol] 4.0 mmol/L Normal 3.5-5.1 [facility] Comment on above: Performed By: #### N ICOTINE QUAL #### [facility] , #### CMP wRFX A1C, EBS LIPID #### [place] [address] [place] Protein [Mass/Vol] 7.1 g/dL Normal 6.4-8.9 [facility] Comment on above: Performed By: #### N ICOTINE QUAL #### [facility] , #### CMP wRFX A1C, EBS LIPID #### [facility] [address] Sodium [Moles/Vol] 138 mmol/L Normal 136-145 [facility] Comment on above: Performed By: #### N ICOTINE QUAL #### [facility] , #### CMP wRFX A1C, EBS LIPID #### [facility] [address] Urea nitrogen [Mass/Vol] 14 mg/dL Normal 7-25 [facility] Comment on above: Performed By: #### N ICOTINE QUAL #### [facility] , #### CMP wRFX A1C, EBS LIPID #### [facility] [address] Calcium [Mass/volume] in Ser um or PlasmaOrdered By: Georgie Calvo on 09-18-2023 Calcium [Mass/Vol] 10.1 mg/dL 8.6-10.3 [facility] Carbon dioxide, total [Moles /volume] in Serum or PlasmaOrdered By: Georgie Calvo on 09-18-2023 CO2 [Moles/Vol] 28.5 mmol/L 21.0-31.0 [facility] Chloride [Moles/volume] in S fabiana or PlasmaOrdered By: Georgie Calvo on 09-18-2023 Chloride [Moles/Vol] 101 mmol/L 98-107 [facility] Cholesterol [Mass/volume] in Serum or PlasmaOrdered By: Georgie Calvo on 09-18-2023 Cholesterol [Mass/Vol] 239 mg/dL 140-200 [facility] Comment on above: Chol less than 200 m g/dl low riskChol 201-239 mg/dl borderline riskChol 240 mg/dl and greater high risk Cholesterol in LDL Calc [Mas s/Vol]Ordered By: Georgie Calvo on 04-25-2024 Cholesterol in LDL [Mass/Vol] 154 mg/dL 0-100 [facility] Comment on above: LDL ATP III CLASSIFI CATIONLDL less than 100 mg/dL OptimalLDL 100-129 mg/dL Near or above optimalLDL 130-159 mg/dL Borderline highLDL 160-189 mg/dL HighLDL greater than 189 mg/dL Very high Cholesterol in VLDL Calc [Ma ss/Vol]Ordered By: Georgie Calvo on 09-18-2023 Cholesterol in VLDL [Mass/Vol] 14 mg/dL [facility] Creatinine [Mass/volume] in Serum or PlasmaOrdered By: Georgie Calvo on 09-18-2023 Creatinine [Mass/Vol] 0.79 mg/dL 0.60-1.20 [facility] Globulin Calc (S) [Mass/Vol] Ordered By: Georgie Calvo on 09-18-2023 Globulin (S) [Mass/Vol] 2.4 g/dL [facility] Glucose [Mass/volume] in Ser um or PlasmaOrdered By: Georgie Calvo on 09-18-2023 Glucose [Mass/Vol] 78 mg/dL 70-100 [facility] Lipid Profileon 09-18-2023 Cholesterol [Mass/Vol] 239 mg/dL High 140-200 [facility] Comment on above: Result Comment: Chol less than 200 mg/dl low risk Chol 201-239 mg/dl borderline risk Chol 240 mg/dl and greater high risk Performed By: #### N ICOTINE QUAL #### [facility] , #### CMP wRFX A1C, EBS LIPID #### [facility] [address] [place] [id number] [place] Cholesterol in HDL [Mass/Vol] 70 mg/dL Normal 23-92 [facility] Comment on above: Result Comment: HDL CHOL ATP-III CLASSIFICATION Cardiovascular Risk HDL > or equal to 60 mg/dL LOW HDL < 40 mg/dL HIGH Performed By: #### N ICOTINE QUAL #### [facility] , #### CMP wRFX A1C, EBS LIPID #### [facility] [address] [place] [address] [place] Cholesterol.total/[place] sterol in HDL [Mass ratio] 3.4 {ratio} Normal <5.0 [facility] Comment on above: Result Comment: PERF ORMED BY: [place] [address] PATHOLOGIST [employer]ANING PROFESSIONAL ROBERT WEBB M.D. Performed By: #### N ICOTINE QUAL #### [facility] , #### CMP wRFX A1C, EBS LIPID #### [facility] [address] LDL Cholesterol,Calculated 154 mg/dL High 0-100 [facility] Comment on above: Result Comment: LDL ATP III CLASSIFICATION LDL less than 100 mg/dL Optimal LDL 100-129 mg/dL Near or above optimal LDL 130-159 mg/dL Borderline high LDL 160-189 mg/dL High LDL greater than 189 mg/dL Very high Performed By: #### N ICOTINE QUAL #### [facility] , #### CMP wRFX A1C, EBS LIPID #### [address] Triglyceride w/Reflex 73 mg/dL Normal 0-149 [facility] Comment on above: Result Comment: TRIG ATP III CLASSIFICATION TRIG less than 150 mg/dL Normal TRIG 150-199 mg/dL Borderline high TRIG 200-500 mg/dL High TRIG greater than 500 mg/dL Very high Standard traceable to the Center for Disease Conrtrol and Prevention (CDC) test method. Performed By: #### N ICOTINE QUAL #### [facility] , #### CMP wRFX A1C, EBS LIPID #### [place] [address] VLDL CHOLESTEROL 14 mg/dL Normal [facility] Comment on above: Performed By: #### N ICOTINE QUAL #### [facility] , #### CMP wRFX A1C, EBS LIPID #### [place] [address] [place] [address] [place] Nicotine Metabolite, Qualon 09-18-2023 Nicotine Metabolite Negative Normal Cutoff=[address] [facility] Comment on above: Result Comment: Perf ormed at: BN - [facility] [address] [id number] Lasting Room Supervisor: Josh Ortez MD, Phone: [phone] PERFORMED BY: [place] [address] PATHOLOGIST CLEANING PROFESSIONAL ROBERT WEBB M.D. Performed By: #### N ICOTINE QUAL #### [facility] , #### CMP wRFX A1C, EBS LIPID #### [place] [address] No Panel InformationOrdered By: Georgie Calvo on 09-18-2023 Estimated GFR (CKD-EPI) > 60.0 mL/Min [facility] Creatinine Clearance (Chem N/A [facility] Potassium [Moles/volume] in Serum or PlasmaOrdered By: Georgie Calvo on 09-18-2023 Potassium [Moles/Vol] 4.0 mmol/L 3.5-5.1 [facility] Protein [Mass/volume] in Ser um or PlasmaOrdered By: Georgie Calvo on 09-18-2023 Protein [Mass/Vol] 7.1 g/dL 6.4-8.9 [facility] Serum or plasma albumin/glob ulin mass ratioOrdered By: Georgie Calvo on 09-18-2023 Albumin/Globulin [Mass ratio] 2.0 {ratio} [facility] Serum or plasma anion gap de terminationOrdered By: Georgie Calvo on 09-18-2023 Anion gap [Moles/Vol] 12.5 mmol/L 6.0-15.0 [facility] Serum or plasma high density lipoprotein (HDL) cholesterol measurementOrdered By: Georgie Calvo on 09-18-2023 Cholesterol in HDL [Mass/Vol] 70 mg/dL [facility] Comment on above: HDL CHOL ATP-III CLA SSIFICATION Cardiovascular RiskHDL > or equal to 60 mg/dL LOWHDL < 40 mg/dL HIGH Serum or plasma total choles terol/high density lipoprotein (HDL) cholesterol mass ratOrdered By: Georgie Calvo on 09-18-2023 Cholesterol.total/[place] sterol in HDL [Mass ratio] 3.4 {ratio} <5.0 [facility] Sodium [Moles/volume] in Ser um or PlasmaOrdered By: Georgie Calvo on 09-18-2023 Sodium [Moles/Vol] 138 mmol/L 136-145 [facility] Triglyceride [Mass/volume] i n Serum or PlasmaOrdered By: Georgie Calvo on 09-18-2023 Triglyceride [Mass/Vol] 73 mg/dL 0-149 [facility] Comment on above: TRIG ATP III CLASSIF ICATIONTRIG less than 150 mg/dL NormalTRIG 150-199 mg/dL Borderline highTRIG 200-500 mg/dL High TRIG greater than 500 mg/dL Very highStandard traceable to the Center for Disease Conrtrol and Prevention (CDC) test method. Urea nitrogen [Mass/volume] in Serum or PlasmaOrdered By: Georgie Calvo on 09-18-2023 Urea nitrogen [Mass/Vol] 14 mg/dL 7 [facility] Basophils Auto (Bld) [#/Vol] on 08-05-2023 Basophils (Bld) [#/Vol] 0.0 10 3/uL 0.0-0.1 [facility] Basophils/100 WBC Auto (Bld) on 08-05-2023 Basophils/100 WBC (Bld) 0.2 % 0.2-2.0 [facility] Eosinophils/100 WBC Auto (Bl d)on 08-05-2023 Eosinophils/100 WBC (Bld) 0.1 % 0.9-7.0 [facility] Erythrocyte distribution wid th Auto (RBC) [Ratio]on 08-05-2023 Erythrocyte distribution width (RBC) [Ratio] 13.8 % 11.0-15.0 [facility] Hematocrit Auto (Bld) [Volum e fraction]on 08-05-2023 Hematocrit (Bld) [Volume fraction] 33.5 % 36.0-48.0 [facility] Hemoglobin [Mass/volume] in Bloodon 08-05-2023 Hemoglobin (Bld) [Mass/Vol] 10.7 g/dL 12.0-16.0 [facility] Laboratory - Hematology and Cell countson 08-05-2023 Immature granulocytes/100 WBC (Bld) 0.5 % 0.0-0.5 [facility] Leukocytes [#/volume] correc oneal for nucleated erythrocytes in Blood by Automated counon 08-05-2023 WBC corrected for nucl RBC Auto (Bld) [#/Vol] 19.3 10 3/uL 4.0-11.0 [facility] Lymphocytes Auto (Bld) [#/Vo l]on 08-05-2023 Lymphocytes (Bld) [#/Vol] 1.7 10 3/uL 1.2-3.8 [facility] Lymphocytes/100 WBC Auto (Bl d)on 08-05-2023 Lymphocytes/100 WBC (Bld) 9.0 % 20.5-60.0 [facility] MCH Auto (RBC) [Entitic mass ]on 08-05-2023 MCH (RBC) [Entitic mass] 27.9 pg 26.7-34.0 [facility] MCHC Auto (RBC) [Mass/Vol]on 08-05-2023 MCHC (RBC) [Mass/Vol] 31.9 g/dL 29.9-35.2 [facility] MCV Auto (RBC) [Entitic vol] on 08-05-2023 MCV (RBC) [Entitic vol] 87.2 fL 81.0-99.0 [facility] Monocytes Auto (Bld) [#/Vol] on 08-05-2023 Monocytes (Bld) [#/Vol] 0.5 10 3/uL 0.3-0.8 [facility] Monocytes/100 WBC Auto (Bld) on 08-05-2023 Monocytes/100 WBC (Bld) 2.8 % 1.7-12.0 [facility] Neutrophils Auto (Bld) [#/Vo l]on 08-05-2023 Neutrophils (Bld) [#/Vol] 16.9 10 3/uL 1.4-6.5 [facility] Neutrophils/100 WBC Auto (Bl d)on 08-05-2023 Neutrophils/100 WBC (Bld) 87.4 % 43.0-75.0 [facility] No Panel Informationon 08-04 Eosinophils # (Auto) 0.0 10 3/uL 0.0-0.7 [facility] Immature Granulocyte # (Auto) 0.09 10 3/uL 0.00-0.03 [facility] Platelet mean volume Auto (B ld) [Entitic vol]on 08-05-2023 Platelet mean volume (Bld) [Entitic vol] 10.4 fL 9.5-13.5 [facility] Platelets Auto (Bld) [#/Vol] on 08-05-2023 Platelets (Bld) [#/Vol] 199 10 3/uL 150-450 [facility] RBC Auto (Bld) [#/Vol]on RBC (Bld) [#/Vol] 3.84 10 6/uL 4.20-5.[address] [facility] Basophils Auto (Bld) [#/Vol] on 08-04-2023 Basophils (Bld) [#/Vol] 0.0 10 3/uL 0.0-0.1 [facility] Basophils/100 WBC Auto (Bld) on 08-04-2023 Basophils/100 WBC (Bld) 0.2 % 0.2-2.0 [facility] Buprenorphine [Presence] in Urineon 08-04-2023 Buprenorphine Ql (U) Negative NEGATIVE [facility] Comment on above: DRUG CLASS TEST SYST EM CUT-OFF CONCENTRATIONS ARE ASFOLLOWS:AMP (Amphetamine): 500 ng/mLBAR (Barbiturates): 200 ng/mLBZO (Benzodiazepines): 150 ng/mLBUP (Buprenorphine): 10 ng/mLCOC (Cocaine): 150 ng/mLmAMP (Methamphetamine): 500 ng/mLMTD (Methadone): 200 ng/mLOPI (Opiates): 100 ng/mLOXY (Oxycodone): 100 ng/mLPCP (Phencyclidine): 25 ng/mLTHC (Cannabinoids): 50 ng/mLTCA (Trycyclic Antidepressants): 300 ng/mL Eosinophils/100 WBC Auto (Bl d)on 08-04-2023 Eosinophils/100 WBC (Bld) 0.4 % 0.9-7.0 [facility] Erythrocyte distribution wid th Auto (RBC) [Ratio]on 08-04-2023 Erythrocyte distribution width (RBC) [Ratio] 13.7 % 11.0-15.0 [facility] Hematocrit Auto (Bld) [Volum e fraction]on 08-04-2023 Hematocrit (Bld) [Volume fraction] 37.3 % 36.0-48.0 [facility] Hemoglobin [Mass/volume] in Bloodon 08-04-2023 Hemoglobin (Bld) [Mass/Vol] 12.1 g/dL 12.0-16.0 [facility] - Drug toxicology on 08-04-2023 Amphetamines Ql (U) Negative NEGATIVE [facility] (U) Negative NEGATIVE [facility] Cocaine Ql (U) Negative NEGATIVE [facility] Opiates Ql (U) Negative NEGATIVE [facility] Phencyclidine Ql (U) Negative NEGATIVE [facility] Laboratory - Hematology and Cell countson 08-04-2023 Immature granulocytes/100 WBC (Bld) 0.3 % 0.0-0.5 [facility] Leukocytes [#/volume] correc oneal for nucleated erythrocytes in Blood by Automated counon 08-04-2023 WBC corrected for nucl RBC Auto (Bld) [#/Vol] 11.9 10 3/uL 4.0-11.0 [facility] Lymphocytes Auto (Bld) [#/Vo l]on 08-04-2023 Lymphocytes (Bld) [#/Vol] 3.4 10 3/uL 1.2-3.8 [facility] Lymphocytes/100 WBC Auto (Bl d)on 08-04-2023 Lymphocytes/100 WBC (Bld) 28.8 % 20.5-60.0 [facility] MCH Auto (RBC) [Entitic mass ]on 08-04-2023 MCH (RBC) [Entitic mass] 27.8 pg 26.7-34.0 [facility] MCHC Auto (RBC) [Mass/Vol]on 08-04-2023 MCHC (RBC) [Mass/Vol] 32.4 g/dL 29.9-35.2 [facility] MCV Auto (RBC) [Entitic vol] on 08-04-2023 MCV (RBC) [Entitic vol] 85.6 fL 81.0-99.0 [facility] Methadone [Presence] in Urin e by Screen methodon 08-04-2023 Methadone Screen Ql (U) Negative NEGATIVE [facility] Monocytes Auto (Bld) [#/Vol] on 08-04-2023 Monocytes (Bld) [#/Vol] 0.5 10 3/uL 0.3-0.8 [facility] Monocytes/100 WBC Auto (Bld) on 08-04-2023 Monocytes/100 WBC (Bld) 4.6 % 1.7-12.0 [facility] Neutrophils Auto (Bld) [#/Vo l]on 08-04-2023 Neutrophils (Bld) [#/Vol] 7.8 10 3/uL 1.4-6.5 [facility] Neutrophils/100 WBC Auto (Bl d)on 08-04-2023 Neutrophils/100 WBC (Bld) 65.7 % 43.0-75.0 [facility] No Panel Informationon 08-03 Eosinophils # (Auto) 0.1 10 3/uL 0.0-0.7 [facility] Immature Granulocyte # (Auto) 0.04 10 3/uL 0.00-0.03 [facility] Urine Barbiturates Screen Negative NEGATIVE [facility] Urine Marijuana (THC) Screen Negative NEGATIVE [facility] Urine Methamphetamines Screen Negative NEGATIVE [facility] Platelet mean volume Auto (B ld) [Entitic vol]on 08-04-2023 Platelet mean volume (Bld) [Entitic vol] 10.0 fL 9.5-13.5 [facility] Platelets Auto (Bld) [#/Vol] on 08-04-2023 Platelets (Bld) [#/Vol] 228 10 3/uL 150-450 [facility] RBC Auto (Bld) [#/Vol]on RBC (Bld) [#/Vol] 4.36 10 6/uL 4.20-5.[address] [facility] Urine tricyclic antidepressa nt measurementon 08-04-2023 Tricyclic antidepressants (U) [Mass/Vol] Negative NEGATIVE [facility] oxyCODONE+oxyMORphone [Prese nce] in Urine by Screen methodon 08-04-2023 oxyCODONE+oxyMORphone Screen Ql (U) Negative NEGATIVE [facility] Basophils Auto (Bld) [#/Vol] on 07-21-2023 Basophils (Bld) [#/Vol] 0.0 10 3/uL 0.0-0.1 [facility] Basophils/100 WBC Auto (Bld) on 07-21-2023 Basophils/100 WBC (Bld) 0.3 % 0.2-2.0 [facility] Eosinophils/100 WBC Auto (Bl d)on 07-21-2023 Eosinophils/100 WBC (Bld) 0.6 % 0.9-7.0 [facility] Erythrocyte distribution wid th Auto (RBC) [Ratio]on 07-21-2023 Erythrocyte distribution width (RBC) [Ratio] 13.4 % 11.0-15.0 [facility] Hematocrit Auto (Bld) [Volum e fraction]on 07-21-2023 Hematocrit (Bld) [Volume fraction] 38.1 % 36.0-48.0 [facility] Hemoglobin [Mass/volume] in Bloodon 07-21-2023 Hemoglobin (Bld) [Mass/Vol] 12.3 g/dL 12.0-16.0 [facility] - Hematology and Cell countson 07-21-2023 Immature granulocytes/100 WBC (Bld) 0.3 % 0.0-0.5 [facility] Leukocytes [#/volume] correc oneal for nucleated erythrocytes in Blood by Automated counon 07-21-2023 WBC corrected for nucl RBC Auto (Bld) [#/Vol] 10.7 10 3/uL 4.0-11.0 [facility] Lymphocytes Auto (Bld) [#/Vo l]on 07-21-2023 Lymphocytes (Bld) [#/Vol] 2.8 10 3/uL 1.2-3.8 [facility] Lymphocytes/100 WBC Auto (Bl d)on 07-21-2023 Lymphocytes/100 WBC (Bld) 25.8 % 20.5-60.0 [facility] MCH Auto (RBC) [Entitic mass ]on 07-21-2023 MCH (RBC) [Entitic mass] 27.9 pg 26.7-34.0 [facility] MCHC Auto (RBC) [Mass/Vol]on 07-21-2023 MCHC (RBC) [Mass/Vol] 32.3 g/dL 29.9-35.2 [facility] MCV Auto (RBC) [Entitic vol] on 07-21-2023 MCV (RBC) [Entitic vol] 86.4 fL 81.0-99.0 [facility] Monocytes Auto (Bld) [#/Vol] on 07-21-2023 Monocytes (Bld) [#/Vol] 0.4 10 3/uL 0.3-0.8 [facility] Monocytes/100 WBC Auto (Bld) on 07-21-2023 Monocytes/100 WBC (Bld) 4.1 % 1.7-12.0 [facility] Neutrophils Auto (Bld) [#/Vo l]on 07-21-2023 Neutrophils (Bld) [#/Vol] 7.4 10 3/uL 1.4-6.5 [facility] Neutrophils/100 WBC Auto (Bl d)on 07-21-2023 Neutrophils/100 WBC (Bld) 68.9 % 43.0-75.0 [facility] No Panel Informationon 07-21 Eosinophils # (Auto) 0.1 10 3/uL 0.0-0.7 [facility] Immature Granulocyte # (Auto) 0.03 10 3/uL 0.00-0.03 [facility] Platelet mean volume Auto (B ld) [Entitic vol]on 07-21-2023 Platelet mean volume (Bld) [Entitic vol] 9.8 fL 9.5-13.5 [facility] Platelets Auto (Bld) [#/Vol] on 07-21-2023 Platelets (Bld) [#/Vol] 220 10 3/uL 150-450 [facility] RBC Auto (Bld) [#/Vol]on RBC (Bld) [#/Vol] 4.41 10 6/uL 4.20-5.[address] [facility] Urinalysis macro (dipstick) panel (U)on 07-08-2023 Bilirubin, UA Negative Negative - 4(70) +++ mg/dL [facility] Blood, UA Negative Negative - 50 Rodriguez/mcL [facility] Clarity, UA Clear [facility] Color, UA Yellow [facility] Glucose, UA Negative Negative - 1999(110) ++++ mg/dL [facility] Interpretation and review of laboratory results Abnormal [facility] Ketones, UA Negative Negative - 160(16) ++++ mg/dL [facility] Leukocytes, UA Positive Negative - 500+++ Dg/mcL [facility] Nitrite, UA Negative Negative - Positive [facility] pH, UA 5.5 5 - 9 [facility] Protein, UA Negative Negative - 1999(20) ++++ mg/dL [facility] Spec Grav, UA 1.015 1 - 1.03 [facility] Urobilinogen, UA 1.0 0.2 - 12 mg/dL [facility] Urine Cultureon 08-07-2022 Urine Culture >100,000 [employer] Other Urine Culture <16 Susceptible amaysim Other Urine Culture <8/4 Susceptible amaysim Other Urine Culture >16 Resistant [facility] Other Urine Culture <4 Susceptible amaysim Other Urine Culture <2 Susceptible amaysim Other Urine Culture <1 Susceptible amaysim Other Urine Culture <0.25 Susceptible amaysim Other Urine Culture <0.5 Susceptible amaysim Other Urine Culture >8 Resistant [employer] Other Urine Culture <32 Susceptible amaysim Other Urine Culture 4 Susceptible amaysim Other Urine Culture >2/38 Resistant [employer] Other SARS-CoV-2 (COVID-19) RNA NA A+probe Ql (Resp)on 02-13-2022 SARS-CoV-2 (COVID-19) RNA CLAY+probe Ql (Unsp spec) Positive [facility] Other SARS-CoV-2 (COVID-19) RNA NA A+probe Ql (Resp)on 02-11-2022 SARS-CoV-2 (COVID-19) RNA CLAY+probe Ql (Unsp spec) Negative [facility] Other SARS-CoV-2 (COVID-19) RNA NA A+probe Ql (Resp)on 01-12-2022 SARS-CoV-2 (COVID-19) RNA CLAY+probe Ql (Unsp spec) Negative [employer] Other XR FOREARM RT 2Von XR FOREARM RT 2V EXAM: XR FOREARM [...] by: JACKIE WILLETT Date: 2020-12-16 14:53 Normal [facility] Vital Signs Date Time Vital Sign Value Performing Clinician Facility 07-08-2023 13:27-0500 Body mass index (BMI) [Ratio] 38.51 kg/m2 Arpita GARDNER Work Phone: [facility] 07-08-2023 13:27-0500 Body weight 116.57 kg Arpita GARDNER Work Phone: [facility] 07-08-2023 13:27-0500 Diastolic blood pressure 70 mm[Hg] Arpita GARDNER Work Phone: [facility] 07-08-2023 13:27-0500 Systolic blood pressure 112 mm[Hg] Arpita GARDNER Work Phone: [facility] 03-01-2022 09:00-0400 Body height 175.26 cm Urban Max Other [facility] Other 03-01-2022 09:00-0400 Body mass index (BMI) [Ratio] 33.81 kg/m2 Urban Max Other [facility] Other 03-01-2022 09:00-0400 Body temperature 97.9 [degF] Urban Max Other [facility] Other 03-01-2022 09:00-0400 Body weight 103.87 kg Urban Max Other [facility] Other 03-01-2022 09:00-0400 Diastolic blood pressure 80 mm[Hg] Urban Max Other [facility] Other 03-01-2022 09:00-0400 Respiratory rate 20 /min Urban Max Other [facility] Other 03-01-2022 09:00-0400 SaO2% (BldA) [Mass fraction] 97 % Urban Max Other [facility] Other 03-01-2022 09:00-0400 Systolic blood pressure 118 mm[Hg] Urban Max Other [facility] Other 01-18-2022 09:45-0400 Body height 175.26 cm Urban Max Other [facility] Other 01-18-2022 09:45-0400 Body mass index (BMI) [Ratio] 32.93 kg/m2 Urban Max Other [facility] Other 01-18-2022 09:45-0400 Body temperature 97.3 [degF] Urban Max Other [facility] Other 01-18-2022 09:45-0400 Body weight 101.15 kg Urban Max Other [facility] Other 01-18-2022 09:45-0400 Diastolic blood pressure 72 mm[Hg] Urban Max Other [facility] Other 01-18-2022 09:45-0400 Respiratory rate 20 /min Urban Max Other [facility] Other 01-18-2022 09:45-0400 SaO2% (BldA) [Mass fraction] 98 % Urban Max Other [facility] Other 01-18-2022 09:45-0400 Systolic blood pressure 112 mm[Hg] Urban Max Other [facility] Other 03-05-2021 16:15-0400 Body height 175.26 cm Urban Max Other [facility] Other 03-05-2021 16:15-0400 Body mass index (BMI) [Ratio] 35.14 kg/m2 Urban Max Other [facility] Other 03-05-2021 16:15-0400 Body weight 107.96 kg Urban Max Other [facility] Other 03-05-2021 16:15-0400 Diastolic blood pressure 68 mm[Hg] Urban Max Other [facility] Other 03-05-2021 16:15-0400 Respiratory rate 20 /min Urban Max Other [facility] Other 03-05-2021 16:15-0400 SaO2% (BldA) [Mass fraction] 98 % Urban Max Other [facility] Other 03-05-2021 16:15-0400 Systolic blood pressure 110 mm[Hg] Urban Max Other [facility] Other Encounters Encounter Date Encounter Type Care Provider Facility Start: 01-13-2024 End: 01-13-2024 ambulatory ARPITA UZMA Not Available Start: 10-15-2023 End: 10-15-2023 ambulatory ARPITA UZMA Not Available Start: 09-18-2023 End: 09-18-2023 ambulatory Tashi Tom Jr Facility:[facility] Start: 09-18-2023 End: 09-18-2023 ambulatory DO Urban M. Max Work Phone: [facility] Work Phone: Start: 09-18-2023 End: 09-18-2023 Departed Referred DO Urban Max Work Phone: [facility] [address] Work Phone: Start: 09-16-2023 End: 09-16-2023 ambulatory ARPITA UZMA Not Available Start: 08-12-2023 End: 08-12-2023 ambulatory ARPITA UZMA Not Available Start: 08-05-2023 Non-patient / Non-visit DO Urban Max Work Phone: [facility] Work Phone: Start: 08-04-2023 Non-patient / Non-visit DO Urban Max Work Phone: [facility] Work Phone: Start: 07-29-2023 End: 07-29-2023 ambulatory ARPITA UZAM Not Available Start: 07-22-2023 End: 07-22-2023 ambulatory TALITA LEARY Not Available Start: 07-21-2023 Non-patient / Non-visit DO Urban Max Work Phone: [facility] Work Phone: Start: 07-08-2023 End: 07-08-2023 flow sheet Arpita Franklin PA Work Phone: [facility] Comment on above: Third trimester preg opal Start: 07-08-2023 End: 07-08-2023 ambulatory ARPITA UZMA Not Available Start: 06-24-2023 End: 06-24-2023 ambulatory ARPITA UZMA Not Available Start: 06-10-2023 End: 06-10-2023 ambulatory ARPITA UZMA Not Available Start: 05-27-2023 End: 05-27-2023 ambulatory ARPITA UZMA Not Available Start: 05-01-2023 End: 05-01-2023 ambulatory ARPITA UZMA Not Available Start: 09-10-2022 End: 09-10-2022 ambulatory Susanne Huitron Other [facility] Other Start: 09-10-2022 Telephone encounter Susanne Perez [facility] Start: 08-21-2022 End: 08-21-2022 ambulatory Dontrell Gallegos Other [facility] Other Start: 08-21-2022 Telephone encounter Dontrell Perez [facility] Start: 08-09-2022 End: 08-09-2022 ambulatory Urban Max Other [facility] Other Start: 08-09-2022 Telephone encounter Urban Max [facility] Start: 08-06-2022 End: 08-06-2022 ambulatory Urban Max Other [facility] Other Start: 08-06-2022 Telephone encounter Urban Max [facility] Start: 03-26-2022 End: 03-26-2022 ambulatory Urban Max Other [facility] Other Start: 03-26-2022 Telephone encounter Urban Max [facility] Start: 03-01-2022 End: 03-01-2022 ambulatory Urban Max Other [facility] Other Start: 03-01-2022 Encounter for genera l adult medical examination without abnormal findings Urban Max [facility] Start: 03-01-2022 Periodic preventive med est patient 18-39 yrs Urban Max [facility] Start: 02-13-2022 End: 02-13-2022 ambulatory Georgie Nighat Other [facility] Other Start: 02-13-2022 Nursing evaluation o f patient and report Georgie Nighat [facility] Start: 02-11-2022 End: 02-11-2022 ambulatory Georgie Nighat Other [facility] Other Start: 02-11-2022 Nursing evaluation o f patient and report Georgie Nighat [facility] Start: 01-18-2022 End: 01-18-2022 ambulatory Urban Max Other [facility] Other Start: 01-18-2022 Office outpatient visit 15 minutes Urban Max [facility] Start: 01-12-2022 End: 01-12-2022 ambulatory Georgie Nighat Other [facility] Other Start: 01-12-2022 Nursing evaluation o f patient and report Georgie Disla [facility] Start: 03-05-2021 Encounter for genera l adult medical examination without abnormal findings Urban Max [facility] Start: 03-05-2021 Periodic preventive med est patient 18-39 yrs Urban Max [facility] Start: 12-16-2020 End: 12-16-[address] GA [facility] Facility: Procedures Date Procedure Procedure Detail Performing Clinician Start: 07-08-2023 Urnls dip stick/tabl et rgnt non-auto w/o micrscp Arpita GARDNER Work Phone: Start: 08-07-2022 Piperacillin/tazobactam Urban Max Other Plan of Treatment Date Care Activity Detail Author Start: 09-18-2023 [facility] Start: 01-24-2023 Influenza vaccination Influenza Vacc ine (#1) [facility] Immunizations Immunization Date Immunization Notes Care Provider Fa cility 03-20-2021 COVID-19 mRNA-1273 (Moderna) DO Urban Max Work Phone: [facility] 02-27-2021 influenza, seasonal, injectable Urban Max Other [facility] 06-20-2020 COVID-19 mRNA-1273 (Moderna) DO Urban Max Work Phone: [facility] 05-23-2020 COVID-19 mRNA-1273 (Moderna) DO Urban Max Work Phone: [facility] 02-29-2020 influenza, injectable, quadrivalent, contains preservative Urban Max Other [facility] Other 02-29-2020 influenza, injectable, quadrivalent, preservative free DO Urban Max Work Phone: [facility] 02-29-2020 influenza virus vaccine, unspecified formulation Arpita GARDNER Work Phone: [facility] 02-07-2020 influenza, injectable, quadrivalent, contains preservative Patient Objection Urban Santana Other [facility] Other NEGATED: Highlighted row has not occurred!02-07-2020 influenza, injectable, quadrivalent, contains preservative Patient Objection Georgie Wademond Other [facility] Other Payers Date Payer Category Payer Self-pay [id number] 2023 Medicaid [employer] [place] [id number] 2023-Present [address] [place] [address] [id number] 2022 Medicaid [id number] [address] [employer]US [id number] 2022-Present [address] [place] [address] [id number] 2022 Unknown [id number] 1994 Unknown [id number] 1994 Unknown [id number] 1994 Unknown [id number] [id number] 1994 Unknown [id number] [id number] 1994 Unknown [id number] [id number] 1994 Unknown [id number] [id number] 1994 Unknown [id number] [id number] 1994 Unknown [id number] [id number] 1994 Unknown [id number] [id number] 1994 Unknown [id number] [id number] 1994 Unknown [id number] [id number] 1994 Unknown [id number] [id number] 1959 Unknown [id number] Unknown [id number] Social History Date Type Detail Facility Unknown if ever smoked [facility] Other Start: 12-03-2022 Sex Assigned At N [facility] Other Start: 02-23-2018 End: 12-01-2022 Tobacco smoking status MSIS Never smoked tobacco [facility] Start: 07-08-2023 Alcohol intake Current drinke r of alcohol (finding) [facility] Start: 12-03-2022 History of Social function [facility] Start: 12-01-2022 Alcohol Comment occasional [facility] Start: 11-22-2022 [facility] Start: 1995 Sex Assigned At Not on file [facility] Start: 1995 Sex Assigned At Female F [facility] Clinical Notes 03-05-2021 to 07-08-2023 KENDRA Palencia [...] 11/18/2022 Depression (CMS/HCC) 11/18/2022 Generalized anxiety disorder ([facility]/HCC) 11/18/2022 Malodorous urine 11/18/2022 Obesity 11/18/2022 Vitreous [...] of: KENDRA Palencia documented in this encounter [facility] 08-21-2022 Evaluation note Encounter Date Diagnosis Assessment Notes Jul, Acute non-recurrent frontal sinusitis (ICD-10 - J01.10) [facility] Other 03-14-2023 Evaluation note* Encounter Date Diagnosis Assessment Notes Treatment Notes Treatment Clinical Notes Jul, Dysuria (ICD-10 - R30.0) [facility] Other 11-01-2022 Evaluation note* Encounter Date Diagnosis Assessment Notes Treatment Notes Treatment Clinical Notes Mar, Anxiety (ICD-10 - F41.9) [facility] Other 10-07-2022 Evaluation note* Encounter Date Diagnosis Assessment Notes Treatment Notes Treatment Clinical Notes Feb, Encntr for general adult medical exam w/o abnormal findings (ICD-10 - Z00.00) Feb, Other No change today...Continue as is...FU 6 months.... [facility] Other 09-21-2022 Evaluation note* Encounter Date Diagnosis Assessment Notes Treatment Notes Treatment Clinical Notes Jan, Contact with and (suspected) exposure to other viral communicable diseases (ICD-10 - Z20.828) [facility] Other 09-19-2022 Evaluation note* Encounter Date Diagnosis Assessment Notes Treatment Notes Treatment Clinical Notes Jan, Contact with and (suspected) exposure to other viral communicable diseases (ICD-10 - Z20.828) [facility] Other 08-26-2022 Evaluation note* Encounter Date Diagnosis Assessment Notes Treatment Notes Treatment Clinical Notes Dec, Anxiety (ICD-10 - F41.9) E Rx sent. Lengthy discussion with patient that I think we need to try something than just a straight SSRI. We will see patient back in review. We talked about potential side effects as well as outcomes. She will call with any concerns. [facility] Other 08-20-2022 Evaluation note* Encounter Date Diagnosis Assessment Notes Treatment Notes Treatment Clinical Notes Dec, Contact with and (suspected) exposure to other viral communicable diseases (ICD-10 - Z20.828) [facility] Other 10-11-2021 Evaluation note* Encounter Date Diagnosis Assessment Notes Treatment Notes Treatment Clinical Notes Feb, Encntr for general adult medical exam w/o abnormal findings (ICD-10 - Z00.00) Feb, Other No change today...Continue as is...FU PRN/Yearly... [facility] Other Evaluation noteNo InformationNortEmergent Views Other Evaluation note* Diagnosis Third trimester state, incidental documented in this encounter [facility]: History general Narrative - Reported* Type Description Date Medical History Hx of MRSA Medical History anxiety Surgical History tonsillectomy and adenoidectomy 2012 Surgical History c-sections 2009 and 2017 Hospitalization History C Sections [facility] Other Summary Purpose Family History No Family History Records FoundNo Family History Records FoundNo Family History Records Found Advance Directives No Advanced Directives Records Found Advance Directive Response Recorded Date/ Time Advance Directives No April 03, 2018 12:04pm Chief Complaint and Reason for Visit Chief Complaint [facility] pre emp Additional Source Comments INFORMATION SOURCE (unrecogn ized section and content) DATE CREATED AUTHOR 12/19/2020 [facility] DATE CREATED AUTHOR AUTHOR'S ORGANIZ ATION 09/22/2023 [facility] DATE CREATED AUTHOR AUTHOR'S ORGANIZ ATION 01/15/2024 [facility] EPIC REASON FOR VISIT (unrecogniz ed section and content) Reason Comments Routine Visit Care Teams (unrecognized sec tion and content) Heel Reducer Relationship Specialty Start Date End Date Urban Santana MD [address] [place], [place] [id number] PCP - General Family Medicine 11/18/22 Team Status: Active Member Role Status Dates Urban Santana DO Primary Care Provider Active Team Status: Active Member Role Status Dates Urban Santana DO Primary Care Provid er, Attending Provider Active Start: July 21, 2023 Team Status: Active Member Role Status Dates Urban Santana DO Primary Care Provid er, Attending Provider Active Start: August 04, 2023 Team Status: Active Member Role Status Dates Urban Santana DO Primary Care Provid er, Attending Provider Active Start: August 05, 2023 Team Status: Inactive Member Role Status Dates Urban Santana DO Primary Care Provider Active Start: September 18, 2023 End: September 18, 2023 Tashi Tom Jr DO Attending Provider Active S tart: September 18, 2023 End: September 18, 2023 Goals (unrecognized section and content) Goals may be documented in a n alternate section FOR RECORDS PERTAINING TO PATIENTS WHO ARE [...] BE BASED ON THE PRIMARY CLINICAL RECORDS. [facility]. provides no warranty or guarantee of the accuracy or completeness of information in this document.
[2024-04-02 13:36] LABS: HCG Quantitative 6694 mIU/mL
== END 2024-04-02 12:06 | disposition home or self-care (01) ==
LOC: LAB 12:09
PROVIDERS: PCP Family Medicine; Visit Provider Obstetrics & Gynecology
DX: O43.219 Placenta accreta, unspecified trimester (principal); O46.90 Antepartum hemorrhage, unspecified, unspecified trimester; N93.9 Abnormal uterine and vaginal bleeding, unspecified; N92.6 Irregular menstruation, unspecified
CPT/HCPCS: 36415; 84702

== ENCOUNTER 2024-04-15 16:43 | Outpatient (OUT) | payer OTHER, SELFPAY ==
--- OUTSIDE RECORDS SUMMARY | 2024-04-15 16:49 | XMS_ITS | CCD ---
Author Organization [facility] Care Team Providers Care Taker Off Hemp Fiber Name Role Phone DR SURY CENTENO Primary Care Unavailable MAGUE, DR MAUDE Pathak Admitting Unavailchristiana BOWSER, DR MAUDE Pathak Consulting Unavailchristiana BOWSER, DR MAUDE Pathak Attending UnavailJackie Morrow Consulting Unavailable Urban Santana Unavailable Georgie Disla Unavailable Dontrell Gallegos Unavailable Susanne Huitron Unavailable Urban Sanatna MD Primary Care Provider DO Urban Santana Primary Care Provider DO Tashi Tom Jr Attending Provider Tashi Tom Jr Attending Unavailable Tashi Tom Jr Admitting Unavailable Urban Santana Primary Care Unavailable UZMA, ARPITA Attending Unavailable UZMA, ARPITA Attending Unavailable UZMA, ARPITA Attending Unavailable UZMA, ARPITA Attending Unavailable TALITA GODINEZ Attending Unavailable UZMA, ARPITA Attending Unavailable UZMA, ARPITA Attending Unavailable UZMA, ARPITA Attending Unavailable UZMA, ARPITA Attending Unavailable UZMA, ARPITA Attending Unavailable UZMA, ARPITA Attending Unavailable Medications Current Medications Medication Drug [...] OR CHEW. 30 capsule 11 01/20/2023 Active phentermine hydrochloride 37.5 mg oral tablet (6 sources) Sympathomimetic Amine Anorectic Start: 2023 End: 2023 take 1 tablet by mouth before mealtime phentermine (Adipex-P) 37.5 MG tablet Indications: Encounter for weight management Take 1 tablet (37.5 mg) by mouth in the morning. Take before meals. 90 tablet 01/13/2024 04/12/2024 Active polysaccharide iron complex 391 mg oral capsule (2 sources) Start: 2023 End: 2023 take 1 capsule by mouth in the morning iron polysaccharides (ProFe) 391.3 (180 Fe) MG capsule Indications: Third trimester Take 1 capsule (391.3 mg) by mouth in the morning. 30 capsule 3 06/11/2023 10/09/2023 Active vitamin (Prenatabs Rx) 29-1 MG tablet (4 sources) Start: 2023 take 1 tablet by mouth once daily in the morning vitamin (Prenatabs Rx) 29-1 MG tablet Indications: examination or test, positive result TAKE 1 TABLET BY MOUTH EVERY DAY IN THE MORNING 90 tablet 3 02/02/2024 Active Start: 01-20-2023 End: 01-20-2024 take 1 tablet by mouth in the morning vitamin (Prenatabs Rx) 29-1 MG tablet Indications: examination or test, positive result Take 1 tablet by mouth in the morning. 30 tablet 11 01/20/2023 01/20/2024 Active sertraline 50 mg oral tablet (2 sources) Serotonin Reuptake Inhibitor Start: 12-25-2020 take 1 tablet by mouth every twenty-four hours Zoloft 50 MG 1 tablet Orally Once a day for 30 day(s) Dec, Active terconazole 4 mg/ml vaginal cream (2 sources) Azole Antifungal Start: 07-08-2023 End: 07-15-2023 terconazole (Terazol 7) 0.4 % vaginal cream Indications: Yeast infection Insert 1 applicator into the vagina at bedtime for 7 days 45 g 0 07/08/2023 07/15/2023 Active Problems Active Problems Problem Classification Problem Date Documented Da te Episodic/Chronic Anxiety disorders (17 sources) Anxiety; Translations: [Anxiety disorder, unspecified] Onset: 01-18-2022 Resolved: 01-18-2022 Chronic E Codes: Cut/pierceb (1 source) Contact with sharp glass, initial encounter; Translations: [CONTACT W/SHARP GLASS INITIAL ENC] Onset: 12-19-2020 Episodic Immunizations and screening for infectious disease (14 sources) Encounter for immunization; Translations: [Contact with and (suspected) exposure to other viral communicable diseases] Onset: 12-19-2020 Resolved: 02-11-2022 Episodic Mood disorders (4 sources) Depressive disorder; Translations: [Depression] Onset: 11-18-2022 11-18-2022 Chronic Open wounds of extremities (4 sources) Laceration without foreign body of right forearm, initial encounter; Translations: [LACERATION W/O FB RT FORARM INITIAL] Onset: 12-16-2020 Episodic Other eye disorders (4 sources) Bilateral vitreous floaters; Translations: [Other vitreous opacities, bilateral] Onset: 11-18-2022 11-18-2022 Chronic Other female genital disorders (4 sources) Abnormal uterine bleeding; Translations: [Abnormal uterine and vaginal bleeding, unspecified] Onset: 11-18-2022 11-18-2022 Chronic Other nutritional; endocrine; and metabolic disorders (4 sources) Obesity; Translations: [Obesity, unspecified] Onset: 11-18-2022 [...] te Episodic/Chronic Genitourinary symptoms and ill-defined conditions (5 sources) Dysuria; Translations: [Malodorous urine] Onset: 11-18-2022 Episodic Joint disorders and dislocations; trauma-related (4 sources) Recurrent dislocation of shoulder region; Translations: [Recurrent dislocation, unspecified shoulder] Onset: 02-21-2009 12-03-2022 Episodic Other screening for suspected conditions (not mental disorders or infectious disease) (4 sources) Liver function tests abnormal; Translations: [Abnormal results of liver function studies] Onset: 11-18-2022 11-18-2022 Episodic Results Test Name Value Interpretation Reference Range Facility [facility] PREG QUANT HCGon 024 HCG QUANTITATIVE 6694 mIU/mL [facility] Comment on above: 5-50 0.2-1 WEEK 50-500 1-2 WEEKS 100-5,000 2-3 WEEKS 500-10,000 3-4 WEEKS 1,000-50,000 4-5 WEEKS 10,000-100,000 5-6 WEEKS 15,000-200,000 6-8 WEEKS 10,000-100,000 2-3 MONTHS [facility] PREG QUANT HCGon 024 HCG QUANTITATIVE 3710 mIU/mL [facility] Comment on above: 5-50 0.2-1 WEEK 50-500 1-2 WEEKS 100-5,000 2-3 WEEKS 500-10,000 3-4 WEEKS 1,000-50,000 4-5 WEEKS 10,000-100,000 5-6 WEEKS 15,000-200,000 6-8 WEEKS 10,000-100,000 2-3 MONTHS [facility] [place] Alanine aminotransferase [En zymatic activity/volume] in Serum or PlasmaOrdered By: Georgie Calvo on 09-18-2023 ALT [Catalytic activity/Vol] 23 U/L 7-52 [facility] Albumin [Mass/volume] in Ser um or Plasma by Bromocresol green (BCG) dye binding methoOrdered By: Georgie Calvo on 09-18-2023 Albumin BCG dye [Mass/Vol] 4.7 g/dL 3.5-5.7 [facility] Alkaline phosphatase [Enzyma tic activity/volume] in Serum or PlasmaOrdered By: Georgie Calvo on 09-18-2023 ALP [Catalytic activity/Vol] 72 U/L 34-104 [facility] Aspartate aminotransferase [ Enzymatic activity/volume] in Serum or PlasmaOrdered By: Georgie Calvo on 09-18-2023 AST [Catalytic activity/Vol] 26 U/L 13-39 [facility] Bilirubin.total [Mass/volume ] in Serum or PlasmaOrdered By: Georgie Calvo on 04-25-2024 Bilirubin [Mass/Vol] 0.7 mg/dL 0.3-1.0 [facility] CMP with reflex to A1Con Albumin [Mass/Vol] 4.7 g/dL Normal 3.5-5.7 [facility] Comment on above: Performed By: #### N ICOTINE QUAL #### [facility] , #### CMP wRFX A1C, EBS LIPID #### [facility] [address] Albumin/Globulin [Mass ratio] 2.0 {ratio} Normal [facility] Comment on above: Performed By: #### N ICOTINE QUAL #### [facility] , #### CMP wRFX A1C, EBS LIPID #### [facility] [address] [place] [address] ALP [Catalytic activity/Vol] 72 U/L Normal 34-104 [facility] Comment on above: Performed By: #### N ICOTINE QUAL #### [facility] , #### CMP wRFX A1C, EBS LIPID #### [facility] [address] [place] [address] [place] ALT [Catalytic activity/Vol] 23 U/L Normal 7-52 [facility] Comment on above: Performed By: #### N ICOTINE QUAL #### [facility] , #### CMP wRFX A1C, EBS LIPID #### [facility] [address] [place] [address] Anion gap [Moles/Vol] 12.5 mmol/L Normal 6.0-15.0 [facility] Comment on above: Performed By: #### N ICOTINE QUAL #### [facility] , #### CMP wRFX A1C, EBS LIPID #### [facility] [address] [place] [address] [place] AST [Catalytic activity/Vol] 26 U/L Normal 13-39 [facility] Comment on above: Performed By: #### N ICOTINE QUAL #### [facility] , #### CMP wRFX A1C, EBS LIPID #### [facility] [address] [place] [address] [place] Bilirubin [Mass/Vol] 0.7 mg/dL Normal 0.3-1.0 [facility] Comment on above: Performed By: #### N ICOTINE QUAL #### [facility] , #### CMP wRFX A1C, EBS LIPID #### [facility] [address] [place] [address] [place] Calcium [Mass/Vol] 10.1 mg/dL Normal 8.6-10.3 [facility] Comment on above: Performed By: #### N ICOTINE QUAL #### [facility] , #### CMP wRFX A1C, EBS LIPID #### [place] [address] [place] Chloride [Moles/Vol] 101 mmol/L Normal 98-107 [facility] Comment on above: Performed By: #### N ICOTINE QUAL #### [facility] , #### CMP wRFX A1C, EBS LIPID #### [facility] [address] [place] [address] [place] CO2 [Moles/Vol] 28.5 mmol/L Normal 21.0-31.0 [facility] Comment on above: Performed By: #### N ICOTINE QUAL #### [facility] , #### CMP wRFX A1C, EBS LIPID #### [facility] [address] [place] [address] [place] Creatinine [Mass/Vol] 0.79 mg/dL Normal 0.60-1.20 [facility] Comment on above: Performed By: #### N ICOTINE QUAL #### [facility] , #### CMP wRFX A1C, EBS LIPID #### [facility] [address] [place] [address] [place] GFR/1.73 sq M.predicted MDRD (S/P/Bld) [Vol rate/Area] mL/min/{1.73_m2} Normal [facility] Comment on above: Performed By: #### N ICOTINE QUAL #### [facility] , #### CMP wRFX A1C, EBS LIPID #### [address] Globulin (S) [Mass/Vol] 2.4 g/dL Normal [facility] Comment on above: Performed By: #### N ICOTINE QUAL #### [facility] , #### CMP wRFX A1C, EBS LIPID #### [address] Glucose [Mass/Vol] 78 mg/dL Normal 70-100 [facility] Comment on above: Performed By: #### N ICOTINE QUAL #### [facility] , #### CMP wRFX A1C, EBS LIPID #### [address] Potassium [Moles/Vol] 4.0 mmol/L Normal 3.5-5.1 [facility] Comment on above: Performed By: #### N ICOTINE QUAL #### [facility] , #### CMP wRFX A1C, EBS LIPID #### [address] Protein [Mass/Vol] 7.1 g/dL Normal 6.4-8.9 [facility] Comment on above: Performed By: #### N ICOTINE QUAL #### [facility] , #### CMP wRFX A1C, EBS LIPID #### [place] [address] [place] Sodium [Moles/Vol] 138 mmol/L Normal 136-145 [facility] Comment on above: Performed By: #### N ICOTINE QUAL #### [facility] , #### CMP wRFX A1C, EBS LIPID #### [facility] [address] [place] [address] [place] Urea nitrogen [Mass/Vol] 14 mg/dL Normal 7-25 [facility] Comment on above: Performed By: #### N ICOTINE QUAL #### [facility] , #### CMP wRFX A1C, EBS LIPID #### [facility] [address] [place] [address] [place] Calcium [Mass/volume] in Ser um or PlasmaOrdered By: Georgie Calvo on 09-18-2023 Calcium [Mass/Vol] 10.1 mg/dL 8.6-10.3 [facility] Carbon dioxide, total [Moles /volume] in Serum or PlasmaOrdered By: Georgie Calvo on 09-18-2023 CO2 [Moles/Vol] 28.5 mmol/L 21.0-31.0 [facility] Chloride [Moles/volume] in S fabiana or PlasmaOrdered By: Georgie Calvo on 09-18-2023 Chloride [Moles/Vol] 101 mmol/L 98-107 [facility] Cholesterol [Mass/volume] in Serum or PlasmaOrdered By: Georgie Calvo on 09-18-2023 Cholesterol [Mass/Vol] 239 mg/dL 140-200 [facility] Comment on above: Chol less than 200 m g/dl low riskChol 201-239 mg/dl borderline riskChol 240 mg/dl and greater high risk Cholesterol in LDL Calc [Mas s/Vol]Ordered By: Georgie Calvo on 09-18-2023 Cholesterol in LDL [Mass/Vol] 154 mg/dL 0-100 [facility] Comment on above: LDL ATP III CLASSIFI CATIONLDL less than 100 mg/dL OptimalLDL 100-129 mg/dL Near or above optimalLDL 130-159 mg/dL Borderline highLDL 160-189 mg/dL HighLDL greater than 189 mg/dL Very high Cholesterol in VLDL Calc [Ma ss/Vol]Ordered By: Georgie Calvo on 09-18-2023 Cholesterol in VLDL [Mass/Vol] 14 mg/dL [facility] Creatinine [Mass/volume] in Serum or PlasmaOrdered By: Georgie Calvo on 09-18-2023 Creatinine [Mass/Vol] 0.79 mg/dL 0.60-1.20 [facility] Globulin Calc (S) [Mass/Vol] Ordered By: Georgiedarnell Calvo on 09-18-2023 Globulin (S) [Mass/Vol] 2.4 g/dL [facility] Glucose [Mass/volume] in Ser um or PlasmaOrdered By: Georgie Calvo on 09-18-2023 Glucose [Mass/Vol] 78 mg/dL 70-100 [facility] Lipid Profileon 09-18-2023 Cholesterol [Mass/Vol] 239 mg/dL High 140-200 [facility] Comment on above: Result Comment: Chol less than 200 mg/dl low risk Chol 201-239 mg/dl borderline risk Chol 240 mg/dl and greater high risk Performed By: #### N ICOTINE QUAL #### [facility] , #### CMP wRFX A1C, EBS LIPID #### [facility] [address] Cholesterol in HDL [Mass/Vol] 70 mg/dL Normal 23-92 [facility] Comment on above: Result Comment: HDL CHOL ATP-III CLASSIFICATION Cardiovascular Risk HDL > or equal to 60 mg/dL LOW HDL < 40 mg/dL HIGH Performed By: #### N ICOTINE QUAL #### [facility] , #### CMP wRFX A1C, EBS LIPID #### [facility] [address] Cholesterol.total/[place] sterol in HDL [Mass ratio] 3.4 {ratio} Normal <5.0 [facility] Comment on above: Result Comment: PERF ORMED BY: [place] [address] PATHOLOGIST [employer] SECRETARY ROBERT WEBB M.D. Performed By: #### N ICOTINE QUAL #### [facility] , #### CMP wRFX A1C, EBS LIPID #### [facility] [address] LDL Cholesterol,Calculated 154 mg/dL High 0-100 [facility] Comment on above: Result Comment: LDL ATP III CLASSIFICATION LDL less than 100 mg/dL Optimal LDL 100-129 mg/dL Near or above optimal LDL 130-159 mg/dL Borderline high LDL 160-189 mg/dL High LDL greater than 189 mg/dL Very high Performed By: #### N ICOTINE QUAL #### [facility] , #### CMP wRFX A1C, EBS LIPID #### [address] Triglyceride w/Reflex 73 mg/dL Normal 0-149 [facility] Comment on above: Result Comment: TRIG ATP III CLASSIFICATION TRIG less than 150 mg/dL Normal TRIG 150-199 mg/dL Borderline high TRIG 200-500 mg/dL High TRIG greater than 500 mg/dL Very high Standard traceable to the Center for Disease Conrtrol and Prevention (CDC) test method. Performed By: #### N ICOTINE QUAL #### [facility] , #### CMP wRFX A1C, EBS LIPID #### [address] VLDL CHOLESTEROL 14 mg/dL Normal [facility] Comment on above: Performed By: #### N ICOTINE QUAL #### [facility] , #### CMP wRFX A1C, EBS LIPID #### [address] Nicotine Metabolite, [place] 09-18-2023 Nicotine Metabolite Negative Normal Cutoff=25 [facility] Comment on above: Result Comment: Perf ormed at: [facility] - [facility] [address] [id number] Photo Editor: Josh Ortez MD, Phone: [phone] PERFORMED BY: [place] [address] PATHOLOGIST [employer] SECRETARY ROBERT WEBB M.D. Performed By: #### N ICOTINE QUAL #### [facility] , #### CMP wRFX A1C, EBS LIPID #### [address] [place] [address] [facility] No Panel InformationOrdered By: Georgie Calvo on 09-18-2023 Estimated GFR (CKD-EPI) > 60.0 mL/Min [facility] Creatinine Clearance (Chem N/A [facility] Potassium [Moles/volume] in Serum or PlasmaOrdered By: Georgie Calvo on 09-18-2023 Potassium [Moles/Vol] 4.0 mmol/L 3.5-5.1 [facility] Protein [Mass/volume] in Ser um or PlasmaOrdered By: Georgie Calvo on 09-18-2023 Protein [Mass/Vol] 7.1 g/dL 6.4-8.9 [facility] Serum or plasma albumin/glob ulin mass ratioOrdered By: Georgie Calvo on 09-18-2023 Albumin/Globulin [Mass ratio] 2.0 {ratio} [facility] Serum or plasma anion gap de terminationOrdered By: Georgie Calvo on 09-18-2023 Anion gap [Moles/Vol] 12.5 mmol/L 6.0-15.0 [facility] Serum or plasma high density lipoprotein (HDL) cholesterol measurementOrdered By: Georgie Calvo on 09-18-2023 Cholesterol in HDL [Mass/Vol] 70 mg/dL 23-92 [facility] Comment on above: HDL CHOL ATP-III CLA SSIFICATION Cardiovascular RiskHDL > or equal to 60 mg/dL LOWHDL < 40 mg/dL HIGH Serum or plasma total choles terol/high density lipoprotein (HDL) cholesterol mass ratOrdered By: Georgie Calvo on 09-18-2023 Cholesterol.total/[place] sterol in HDL [Mass ratio] 3.4 {ratio} <5.0 [facility] Sodium [Moles/volume] in Ser um or PlasmaOrdered By: Georgie Calvo on 09-18-2023 Sodium [Moles/Vol] 138 mmol/L 136-145 [facility] Triglyceride [Mass/volume] i n Serum or PlasmaOrdered By: Georgie Calvo on 09-18-2023 Triglyceride [Mass/Vol] 73 mg/dL 0-149 [facility] Comment on above: TRIG ATP III CLASSIF ICATIONTRIG less than 150 mg/dL NormalTRIG 150-199 mg/dL Borderline highTRIG 200-500 mg/dL High TRIG greater than 500 mg/dL Very highStandard traceable to the Center for Disease Conrtrol and Prevention (CDC) test method. Urea nitrogen [Mass/volume] in Serum or PlasmaOrdered By: Georgie Calvo on 09-18-2023 Urea nitrogen [Mass/Vol] 14 mg/dL 12-17 [facility] Basophils Auto (Bld) [#/Vol] on 08-05-2023 Basophils (Bld) [#/Vol] 0.0 10 3/uL 0.0-0.1 [facility] Basophils/100 WBC Auto (Bld) on 08-05-2023 Basophils/100 WBC (Bld) 0.2 % 0.2-2.0 F [facility] Eosinophils/100 WBC Auto (Bl d)on 08-05-2023 Eosinophils/100 WBC (Bld) 0.1 % 0.9-7.0 [facility] Erythrocyte distribution wid th Auto (RBC) [Ratio]on 08-05-2023 Erythrocyte distribution width (RBC) [Ratio] 13.8 % 11.0-15.0 [facility] Hematocrit Auto (Bld) [Volum e fraction]on 08-05-2023 Hematocrit (Bld) [Volume fraction] 33.5 % 36.0-48.0 [facility] Hemoglobin [Mass/volume] in Bloodon 08-05-2023 Hemoglobin (Bld) [Mass/Vol] 10.7 g/dL 12.0-16.0 [facility] Laboratory - Hematology and Cell countson 08-05-2023 Immature granulocytes/100 WBC (Bld) 0.5 % 0.0-0.5 [facility] Leukocytes [#/volume] correc oneal for nucleated erythrocytes in Blood by Automated counon 08-05-2023 WBC corrected for nucl RBC Auto (Bld) [#/Vol] 19.3 10 3/uL 4.0-11.0 [facility] Lymphocytes Auto (Bld) [#/Vo l]on 08-05-2023 Lymphocytes (Bld) [#/Vol] 1.7 10 3/uL 1.2-3.8 [facility] Lymphocytes/100 WBC Auto (Bl d)on 08-05-2023 Lymphocytes/100 WBC (Bld) 9.0 % 20.5-60.0 [facility] MCH Auto (RBC) [Entitic mass ]on 08-05-2023 MCH (RBC) [Entitic mass] 27.9 pg 26.7-34.0 [facility] MCHC Auto (RBC) [Mass/Vol]on 08-05-2023 MCHC (RBC) [Mass/Vol] 31.9 g/dL 29.9-35.2 [facility] MCV Auto (RBC) [Entitic vol] on 08-05-2023 MCV (RBC) [Entitic vol] 87.2 fL 81.0-99.0 F [facility] Monocytes Auto (Bld) [#/Vol] on 08-05-2023 Monocytes (Bld) [#/Vol] 0.5 10 3/uL 0.3-0.8 [facility] Monocytes/100 WBC Auto (Bld) on 08-05-2023 Monocytes/100 WBC (Bld) 2.8 % 1.7-12.0 F [facility] Neutrophils Auto (Bld) [#/Vo l]on 08-05-2023 Neutrophils (Bld) [#/Vol] 16.9 10 3/uL 1.4-6.5 [facility] Neutrophils/100 WBC Auto (Bl d)on 08-05-2023 Neutrophils/100 WBC (Bld) 87.4 % 43.0-75.0 [facility] No Panel Informationon 08-04 Eosinophils # (Auto) 0.0 10 3/uL 0.0-0.7 [facility] Immature Granulocyte # (Auto) 0.09 10 3/uL 0.00-0.03 [facility] Platelet mean volume Auto (B ld) [Entitic vol]on 08-05-2023 Platelet mean volume (Bld) [Entitic vol] 10.4 fL 9.5-13.5 [facility] Platelets Auto (Bld) [#/Vol] on 08-05-2023 Platelets (Bld) [#/Vol] 199 10 3/uL 150-450 [facility] RBC Auto (Bld) [#/Vol]on RBC (Bld) [#/Vol] 3.84 10 6/uL 4.20-5.40 [facility] Basophils Auto (Bld) [#/Vol] on 08-04-2023 Basophils (Bld) [#/Vol] 0.0 10 3/uL 0.0-0.1 [facility] Basophils/100 WBC Auto (Bld) on 08-04-2023 Basophils/100 WBC (Bld) 0.2 % 0.2-2.0 F [facility] Buprenorphine [Presence] in Urineon 08-04-2023 Buprenorphine Ql (U) Negative NEGATIVE [facility] Comment on above: DRUG CLASS TEST SYST EM CUT-OFF CONCENTRATIONS ARE ASFOLLOWS:AMP (Amphetamine): 500 ng/mLBAR (Barbiturates): 200 ng/mLBZO (Benzodiazepines): 150 ng/mLBUP (Buprenorphine): 10 ng/mLCOC (Cocaine): 150 ng/mLmAMP (Methamphetamine): 500 ng/mLMTD (Methadone): 200 ng/mLOPI (Opiates): 100 ng/mLOXY (Oxycodone): 100 ng/mLPCP (Phencyclidine): 25 ng/mLTHC (Cannabinoids): 50 ng/mLTCA (Trycyclic Antidepressants): 300 ng/mL Eosinophils/100 WBC Auto (Bl d)on 08-04-2023 Eosinophils/100 WBC (Bld) 0.4 % 0.9-7.0 [facility] Erythrocyte distribution wid th Auto (RBC) [Ratio]on 08-04-2023 Erythrocyte distribution width (RBC) [Ratio] 13.7 % 11.0-15.0 [facility] Hematocrit Auto (Bld) [Volum e fraction]on 08-04-2023 Hematocrit (Bld) [Volume fraction] 37.3 % 36.0-48.0 [facility] Hemoglobin [Mass/volume] in Bloodon 08-04-2023 Hemoglobin (Bld) [Mass/Vol] 12.1 g/dL 12.0-16.0 [facility] Laboratory - Drug toxicology on 08-04-2023 Amphetamines Ql (U) Negative NEGATIVE [facility] Benzodiazepines Ql (U) Negative NEGATIVE [facility] Cocaine Ql (U) Negative NEGATIVE [facility] Opiates Ql (U) Negative NEGATIVE [facility] Phencyclidine Ql (U) Negative NEGATIVE [facility] Laboratory - Hematology and Cell countson 08-04-2023 Immature granulocytes/100 WBC (Bld) 0.3 % 0.0-0.5 [facility] Leukocytes [#/volume] correc oneal for nucleated erythrocytes in Blood by Automated counon 08-04-2023 WBC corrected for nucl RBC Auto (Bld) [#/Vol] 11.9 10 3/uL 4.0-11.0 [facility] Lymphocytes Auto (Bld) [#/Vo l]on 08-04-2023 Lymphocytes (Bld) [#/Vol] 3.4 10 3/uL 1.2-3.8 [facility] Lymphocytes/100 WBC Auto (Bl d)on 08-04-2023 Lymphocytes/100 WBC (Bld) 28.8 % 20.5-60.0 [facility] MCH Auto (RBC) [Entitic mass ]on 08-04-2023 MCH (RBC) [Entitic mass] 27.8 pg 26.7-34.0 [facility] MCHC Auto (RBC) [Mass/Vol]on 08-04-2023 MCHC (RBC) [Mass/Vol] 32.4 g/dL 29.9-35.2 [facility] MCV Auto (RBC) [Entitic vol] on 08-04-2023 MCV (RBC) [Entitic vol] 85.6 fL 81.0-99.0 F [facility] Methadone [Presence] in Urin e by Screen methodon 08-04-2023 Methadone Screen Ql (U) Negative NEGATIVE F [facility] Monocytes Auto (Bld) [#/Vol] on 08-04-2023 Monocytes (Bld) [#/Vol] 0.5 10 3/uL 0.3-0.8 [facility] Monocytes/100 WBC Auto (Bld) on 08-04-2023 Monocytes/100 WBC (Bld) 4.6 % 1.7-12.0 F [facility] Neutrophils Auto (Bld) [#/Vo l]on 08-04-2023 Neutrophils (Bld) [#/Vol] 7.8 10 3/uL 1.4-6.5 [facility] Neutrophils/100 WBC Auto (Bl d)on 08-04-2023 Neutrophils/100 WBC (Bld) 65.7 % 43.0-75.0 [facility] No Panel Informationon 08-03 Eosinophils # (Auto) 0.1 10 3/uL 0.0-0.7 [facility] Immature Granulocyte # (Auto) 0.04 10 3/uL 0.00-0.03 [facility] Urine Barbiturates Screen Negative NEGATIVE [facility] Urine Marijuana (THC) Screen Negative NEGATIVE [facility] Urine Methamphetamines Screen Negative NEGATIVE [facility] Platelet mean volume Auto (B ld) [Entitic vol]on 08-04-2023 Platelet mean volume (Bld) [Entitic vol] 10.0 fL 9.5-13.5 [facility] Platelets Auto (Bld) [#/Vol] on 08-04-2023 Platelets (Bld) [#/Vol] 228 10 3/uL 150-450 [facility] RBC Auto (Bld) [#/Vol]on RBC (Bld) [#/Vol] 4.36 10 6/uL 4.20-5.40 [facility] Urine tricyclic antidepressa nt measurementon 08-04-2023 Tricyclic antidepressants (U) [Mass/Vol] Negative NEGATIVE [facility] [facility] oxyCODONE+oxyMORphone [Prese nce] in Urine by Screen methodon 08-04-2023 oxyCODONE+oxyMORphone Screen Ql (U) Negative NEGATIVE [facility] Basophils Auto (Bld) [#/Vol] on 07-21-2023 Basophils (Bld) [#/Vol] 0.0 10 3/uL 0.0-0.1 [facility] Basophils/100 WBC Auto (Bld) on 07-21-2023 Basophils/100 WBC (Bld) 0.3 % 0.2-2.0 F [facility] Eosinophils/100 WBC Auto (Bl d)on 07-21-2023 Eosinophils/100 WBC (Bld) 0.6 % 0.9-7.0 [facility] Erythrocyte distribution wid th Auto (RBC) [Ratio]on 07-21-2023 Erythrocyte distribution width (RBC) [Ratio] 13.4 % 11.0-15.0 [facility] Hematocrit Auto (Bld) [Volum e fraction]on 07-21-2023 Hematocrit (Bld) [Volume fraction] 38.1 % 36.0-48.0 [facility] Hemoglobin [Mass/volume] in Bloodon 07-21-2023 Hemoglobin (Bld) [Mass/Vol] 12.3 g/dL 12.0-16.0 [facility] Laboratory - Hematology and Cell countson 07-21-2023 Immature granulocytes/100 WBC (Bld) 0.3 % 0.0-0.5 [facility] Leukocytes [#/volume] correc oneal for nucleated erythrocytes in Blood by Automated counon 07-21-2023 WBC corrected for nucl RBC Auto (Bld) [#/Vol] 10.7 10 3/uL 4.0-11.0 [facility] Lymphocytes Auto (Bld) [#/Vo l]on 07-21-2023 Lymphocytes (Bld) [#/Vol] 2.8 10 3/uL 1.2-3.8 [facility] Lymphocytes/100 WBC Auto (Bl d)on 07-21-2023 Lymphocytes/100 WBC (Bld) 25.8 % 20.5-60.0 [facility] MCH Auto (RBC) [Entitic mass ]on 07-21-2023 MCH (RBC) [Entitic mass] 27.9 pg 26.7-34.0 [facility] MCHC Auto (RBC) [Mass/Vol]on 07-21-2023 MCHC (RBC) [Mass/Vol] 32.3 g/dL 29.9-35.2 [facility] MCV Auto (RBC) [Entitic vol] on 07-21-2023 MCV (RBC) [Entitic vol] 86.4 fL 81.0-99.0 [facility] Monocytes Auto (Bld) [#/Vol] on 07-21-2023 Monocytes (Bld) [#/Vol] 0.4 10 3/uL 0.3-0.8 [facility] Monocytes/100 WBC Auto (Bld) on 07-21-2023 Monocytes/100 WBC (Bld) 4.1 % 1.7-12.0 F [facility] Neutrophils Auto (Bld) [#/Vo l]on 07-21-2023 Neutrophils (Bld) [#/Vol] 7.4 10 3/uL 1.4-6.5 [facility] Neutrophils/100 WBC Auto (Bl d)on 07-21-2023 Neutrophils/100 WBC (Bld) 68.9 % 43.0-75.0 [facility] No Panel Informationon 07-21 Eosinophils # (Auto) 0.1 10 3/uL 0.0-0.7 [facility] Immature Granulocyte # (Auto) 0.03 10 3/uL 0.00-0.03 [facility] Platelet mean volume Auto (B ld) [Entitic vol]on 07-21-2023 Platelet mean volume (Bld) [Entitic vol] 9.8 fL 9.5-13.5 [facility] Platelets Auto (Bld) [#/Vol] on 07-21-2023 Platelets (Bld) [#/Vol] 220 10 3/uL 150-450 [facility] RBC Auto (Bld) [#/Vol]on RBC (Bld) [#/Vol] 4.41 10 6/uL 4.20-5.40 [facility] Urinalysis macro (dipstick) panel (U)on 07-08-2023 Bilirubin, UA Negative Negative - 4(70) +++ mg/dL [facility] Blood, UA Negative Negative - 50 Rodriguez/mcL [facility] Clarity, UA Clear [facility] Color, UA Yellow [facility] Glucose, UA Negative Negative - 2000(110) ++++ mg/dL [facility] Interpretation and review of laboratory results Abnormal [facility] Ketones, UA Negative Negative - 160(16) ++++ mg/dL [facility] Leukocytes, UA Positive Negative - 500+++ Dg/mcL [facility] Nitrite, UA Negative Negative - Positive [facility] pH, UA 5.5 5 - 9 [facility] Protein, UA Negative Negative - 2000(20) ++++ mg/dL [facility] Spec Grav, UA 1.015 1 - 1.03 [facility] Urobilinogen, UA 1.0 0.2 - 12 mg/dL [facility] Urine Cultureon 08-07-2022 Urine Culture >100,000 [employer] Other Urine Culture <16 Susceptible [employer] Other Urine Culture <8/4 Susceptible [employer] Other Urine Culture >16 Resistant [employer] Other Urine Culture <4 Susceptible [employer] Other Urine Culture <2 Susceptible [employer] Other Urine Culture <1 Susceptible [employer] Other Urine Culture <0.25 Susceptible [employer] Other Urine Culture <0.5 Susceptible [employer] Other Urine Culture >8 Resistant [employer] Other Urine Culture <32 Susceptible [employer] Other Urine Culture 4 Susceptible [employer] Other Urine Culture >2/38 Resistant [employer] Other SARS-CoV-2 (COVID-19) RNA NA A+probe Ql (Resp)on 02-13-2022 SARS-CoV-2 (COVID-19) RNA CLAY+probe Ql (Unsp spec) Positive [employer] Other SARS-CoV-2 (COVID-19) RNA NA A+probe Ql (Resp)on 02-11-2022 SARS-CoV-2 (COVID-19) RNA CLAY+probe Ql (Unsp spec) Negative [employer] Other SARS-CoV-2 (COVID-19) RNA NA A+probe Ql (Resp)on 01-12-2022 SARS-CoV-2 (COVID-19) RNA CLAY+probe Ql (Unsp spec) Negative [employer] Other XR FOREARM RT 2Von 1 XR FOREARM [...] by: JACKIE WILLETT Date: 2020-12-16 14:53 Normal [facility] Vital Signs Date Time Vital Sign Value Performing Clinician Facility 07-08-2023 13:27-0500 Body mass index (BMI) [Ratio] 38.51 kg/m2 Arpita GARDNER Work Phone: [facility] 07-08-2023 13:27-0500 Body weight 116.57 kg Arpita GARDNER Work Phone: [facility] 07-08-2023 13:27-0500 Diastolic blood pressure 70 mm[Hg] Arpita GARDNER Work Phone: [facility] 07-08-2023 13:27-0500 Systolic blood pressure 112 mm[Hg] Arpita GARDNER Work Phone: [facility] 03-01-2022 09:00-0400 Body height 175.26 cm Urban Max Other [employer] Other 03-01-2022 09:00-0400 Body mass index (BMI) [Ratio] 33.81 kg/m2 [facility] Other [employer] Other 03-01-2022 09:00-0400 Body temperature 97.9 [degF] [facility] Other [employer] Other 03-01-2022 09:00-0400 Body weight 103.87 kg Urban [facility] Other [employer] Other 03-01-2022 09:00-0400 Diastolic blood pressure 80 mm[Hg] Urban Max Other [employer] Other 03-01-2022 09:00-0400 Respiratory rate 20 /min [facility] Other [employer] Other 03-01-2022 09:00-0400 SaO2% (BldA) [Mass fraction] 97 % [facility] Other [employer] Other 03-01-2022 09:00-0400 Systolic blood pressure 118 mm[Hg] Urban Max Other [employer] Other 01-18-2022 09:45-0400 Body height 175.26 cm Urban Max Other [employer] Other 01-18-2022 09:45-0400 Body mass index (BMI) [Ratio] 32.93 kg/m2 [facility] Other [employer] Other 01-18-2022 09:45-0400 Body temperature 97.3 [degF] Urban Max Other [employer] Other 01-18-2022 09:45-0400 Body weight 101.15 kg Urban Max Other [employer] Other 01-18-2022 09:45-0400 Diastolic blood pressure 72 mm[Hg] Urban Max Other [employer] Other 01-18-2022 09:45-0400 Respiratory rate 20 /min Urban Max Other [employer] Other 01-18-2022 09:45-0400 SaO2% (BldA) [Mass fraction] 98 % [facility] Other [employer] Other 01-18-2022 09:45-0400 Systolic blood pressure 112 mm[Hg] Urban Max Other [employer] Other 03-05-2021 16:15-0400 Body height 175.26 cm Urban Max Other [employer] Other 03-05-2021 16:15-0400 Body mass index (BMI) [Ratio] 35.14 kg/m2 [facility] Other [employer] Other 03-05-2021 16:15-0400 Body weight 107.96 kg Urban Max Other [employer] Other 03-05-2021 16:15-0400 Diastolic blood pressure 68 mm[Hg] Urban Max Other [employer] Other 03-05-2021 16:15-0400 Respiratory rate 20 /min Urban Max Other [employer] Other 03-05-2021 16:15-0400 SaO2% (BldA) [Mass fraction] 98 % Urban Santana Other [facility] [employer] Other 03-05-2021 16:15-0400 Systolic blood pressure 110 mm[Hg] Urban Santana Other [facility] [employer] Other Encounters Encounter Date Encounter Type Care Provider Facility Start: 04-02-2024 End: 04-02-2024 Clinisync Result Encounter Talita Herbert DO Work Phone: [facility] Unsolicited Start: 04-02-2024 End: 04-02-2024 Clinisync Result Encounter Talita Herbert DO Work Phone: [facility] Unsolicited Start: 03-31-2024 End: 03-31-2024 Clinisync Result Encounter Talita Herbert DO Work Phone: [facility] Unsolicited Start: 03-31-2024 End: 03-31-2024 Clinisync Result Encounter Talita Herbert DO Work Phone: [facility] Unsolicited Start: 01-13-2024 End: 01-13-2024 ambulatory ARPITA UZMA Not Available Start: 10-15-2023 End: 10-15-2023 ambulatory ARPITA UZMA Not Available Start: 09-18-2023 End: 09-18-2023 ambulatory Tashi Tom Jr Facility:[facility] Start: 09-18-2023 End: 09-18-2023 ambulatory DO Urban Andrewsgles Work Phone: [facility] Work Phone: Start: 09-18-2023 End: 09-18-2023 Departed Referred DO Urban Max Work Phone: [facility] [address] Work Phone: Start: 09-16-2023 End: 09-16-2023 ambulatory ARPITA UZMA Not Available Start: 08-12-2023 End: 08-12-2023 ambulatory ARPITA UZMA Not Available Start: 08-05-2023 Non-patient / Non-visit DO Urban Max Work Phone: [facility] Work Phone: Start: 08-04-2023 Non-patient / Non-visit DO Urban Max Work Phone: [facility] Work Phone: Start: 07-29-2023 End: 07-29-2023 ambulatory ARPITA UZMA Not Available Start: 07-22-2023 End: 07-22-2023 ambulatory TALITA HAMLINO Not Available Start: 07-21-2023 Non-patient / Non-visit DO Urban Max Work Phone: [facility] Work Phone: Start: 07-08-2023 End: 07-08-2023 flow sheet Arpita Bernaley PA Work Phone: [facility] Comment [...] 09-10-2022 End: 09-10-2022 ambulatory Susanne Huitron Other [facility] [employer] Other Start: 09-10-2022 Telephone encounter Susanne jane [facility] Start: 08-21-2022 End: 08-21-2022 ambulatory Dontrell Gallegos Other [facility] [employer] Other Start: 08-21-2022 Telephone encounter Dontrell Perez [facility] Start: 08-09-2022 End: 08-09-2022 ambulatory Urban Max Other [employer] Other Start: 08-09-2022 Telephone encounter Urban Max [facility] Start: 08-06-2022 End: 08-06-2022 ambulatory Urban Max Other [employer] Other Start: 08-06-2022 Telephone encounter Urban Max [facility] Start: 03-26-2022 End: 03-26-2022 ambulatory Urban Max Other [employer] Other Start: 03-26-2022 Telephone encounter Urban Max [facility] Start: 03-01-2022 End: 03-01-2022 ambulatory Urban Max Other [employer] Other Start: 03-01-2022 Encounter for genera l adult medical examination without abnormal findings Urban Max [facility] Start: 03-01-2022 Periodic preventive med est patient 18-39 yrs Urban Max [facility] Start: 02-13-2022 End: 02-13-2022 ambulatory Georgiedarnell Disla Other [employer] Other Start: 02-13-2022 Nursing evaluation o f patient and report Georgie Nighat [facility] Start: 02-11-2022 End: 02-11-2022 ambulatory Georgie Nighat Other [employer] Other Start: 02-11-2022 Nursing evaluation o f patient and report Georgie Nighat [facility] Start: 01-18-2022 End: 01-18-2022 ambulatory Urban Max Other [employer] Other Start: 01-18-2022 Office outpatient visit 15 minutes Urban Santana [facility] Start: 01-12-2022 End: 01-12-2022 ambulatory Georgie Nighat Other [facility] [employer] Other Start: 01-12-2022 Nursing evaluation o f patient and report Georgie Disla [facility] Start: 03-05-2021 Encounter for genera l adult medical examination without abnormal findings Urbanjulito Santana [facility] Start: 03-05-2021 Periodic preventive med est patient 18-39 yrs Urbanjulito Santana [facility] Start: 12-16-2020 End: 12-16-[address] [facility] Facility:[facility]1 Procedures Date Procedure Procedure Detail Performing Clinician Start: 04-02-2024 [facility] PREG QUANT HCG Core y Herbert DO Work Phone: Start: 03-31-2024 [facility] PREG QUANT HCG Core y Herbert DO Work Phone: Start: 07-08-2023 Urnls dip stick/tabl et rgnt non-auto w/o micrscp Arpita GARDNER Work Phone: Start: 01-03-2023 Microscopic observat ion [Identifier] in Cervix by Cyto stain Talita Herbert DO Work Phone: Start: 08-07-2022 Piperacillin/tazobactam [facility] Other Plan of Treatment Date Care Activity Detail Author Start: 01-04-2028 Screening for malign ant neoplasm of cervix HPV/Cotest [facility] Start: 01-03-2026 Screening for malign ant neoplasm of cervix [facility] Start: 05-07-2024 End: 05-07-2024 ambulatory 05/07/2024 10:30 AM EST Initial [facility] [address] [place] [phone] [facility] Start: 05-07-2024 End: 05-07-2024 Professional / ancillary services management 05/07/2024 10:00 AM EST Ancillary Procedure [facility] [address] [place] [address] [facility] Start: 01-25-2024 Influenza vaccination Influenz a Vaccine (#1) [facility] Start: 09-18-2023 [facility] Start: 01-24-2023 Influenza vaccination Influenz a Vaccine (#1) [facility] Immunizations Immunization Date Immunization Notes Care Provider [place] 09-18-2023 influenza virus vaccine, unspecified formulation Talita Godinez DO Work Phone: [facility] 03-20-2021 COVID-19 mRNA-1273 (Moderna) DO Urban Max Work Phone: [facility] 02-27-2021 influenza, seasonal, injectable Urban Max Other [facility] 06-20-2020 COVID-19 mRNA-1273 (Moderna) DO Urban Max Work Phone: [facility] 05-23-2020 COVID-19 mRNA-1273 (Moderna) DO Urban Max Work Phone: [facility] 02-29-2020 influenza, injectable, quadrivalent, contains preservative Urban Max Other [employer] Other 02-29-2020 influenza, injectable, quadrivalent, preservative free DO Urban Max Work Phone: [facility] 02-29-2020 influenza virus vaccine, unspecified formulation Arpita GARDNER Work Phone: [facility] 02-07-2020 influenza, injectable, quadrivalent, contains preservative Patient Objection Urban Max Other [employer] Other NEGATED: Highlighted row has not occurred!02-07-2020 influenza, injectable, quadrivalent, contains preservative Patient Objection Georgie Disla Other [employer] Other Payers Date Payer Category Payer Self-pay [id number] [phone] [id number] 2023 Medicaid [facility] [place] [id number] 2023-Present [address] [place] [address] [id number] 2023 Private Health Insurance [facility] MEDICA[facility] [id number] 2022 Medicaid [id number] [address] [employer] [id number] 2022- [address] [place] [address] [id number] 2022 Unknown [id number] 1994 Unknown [id number] [id number]. 593 1994 Unknown [id number] [id number]. 1259 1994 Unknown [id number] 2.16.840.1.508202.3.579.2. 1259 1994 Unknown [id number] 2.16.840.1.142636.3.579.2. 1259 1994 Unknown [id number] 2.16.840.1.514336.3.579.2. 1259 1994 Unknown [id number] 2.16.840.1.900358.3.579.2. 1259 1994 Unknown [id number] 2.16.840.1.590763.3.579.2. 1259 1994 Unknown [id number] 2.16.840.1.082591.3.579.2. 1259 1994 Unknown [id number] 2.16.840.1.748904.3.579.2. 1259 1994 Unknown [id number] 2.16.840.1.222863.3.579.2. 1259 1994 Unknown [id number] 2.16.840.1.627014.3.579.2. 1259 1994 Unknown [id number] 2.16.840.1.476005.3.579.2. 1259 1959 Unknown [id number] Unknown [id number] [id number]. 531 Social History Date Type Detail Facility Unknown if ever smoked [employer] Other Start: 12-03-2022 End: 10-15-2023 Sex Assigned At [employer] Other Start: 02-23-2018 End: 12-01-2022 Tobacco smoking status DCIS Never smoked tobacco [facility] Start: 07-08-2023 End: 10-15-2023 Alcohol intake Current drinker of alcohol (finding) [facility] Start: 12-03-2022 End: 10-15-2023 History of Social function [facility] Start: 12-01-2022 Alcohol Comment occasional [facility] Start: 11-22-2022 [facility] Start: 1995 Sex Assigned At Not on file [facility] Start: 1995 Sex Assigned At Female F [facility] Clinical Notes 03-05-2021 to 07-08-2023 KENDRA Palencia - 07/08/2023 1:30 PM EST Note Date & Type Note Facility 07-08-2023 History of Presen t illness Narrative Reason for Appointment: Patient ID: Griselda Quintana is a 28 y.o. female who presents [...] of: KENDRA Palencia documented in this encounter [facility] 08-21-2022 Evaluation note Encounter Date Diagnosis Assessment Notes Jul, Acute non-recurrent frontal sinusitis (ICD-10 - J01.10) [employer] Other 03-14-2023 Evaluation note* Encounter Date Diagnosis Assessment Notes Treatment Notes Treatment Clinical Notes Jul, Dysuria (ICD-10 - R30.0) [employer] Other 11-01-2022 Evaluation note* Encounter Date Diagnosis Assessment Notes Treatment Notes Treatment Clinical Notes Mar, Anxiety (ICD-10 - F41.9) [employer] Other 10-07-2022 Evaluation note* Encounter Date Diagnosis Assessment Notes Treatment Notes Treatment Clinical Notes Feb, Encntr for general adult medical exam w/o abnormal findings (ICD-10 - Z00.00) Feb, Other No change today...Continue as is...FU 6 months.... [employer] Other 09-21-2022 Evaluation note* Encounter Date Diagnosis Assessment Notes Treatment Notes Treatment Clinical Notes Jan, Contact with and (suspected) exposure to other viral communicable diseases (ICD-10 - Z20.828) [employer] Other 09-19-2022 Evaluation note* Encounter Date Diagnosis Assessment Notes Treatment Notes Treatment Clinical Notes Jan, Contact with and (suspected) exposure to other viral communicable diseases (ICD-10 - Z20.828) [employer] Other 08-26-2022 Evaluation note* Encounter Date Diagnosis Assessment Notes Treatment Notes Treatment Clinical Notes Dec, Anxiety (ICD-10 - F41.9) E Rx sent. Lengthy discussion with patient that I think we need to try something than just a straight SSRI. We will see patient back in review. We talked about potential side effects as well as outcomes. She will call with any concerns. [employer] Other 08-20-2022 Evaluation note* Encounter Date Diagnosis Assessment Notes Treatment Notes Treatment Clinical Notes Dec, Contact with and (suspected) exposure to other viral communicable diseases (ICD-10 - Z20.828) [employer] Other 10-11-2021 Evaluation note* Encounter Date Diagnosis Assessment Notes Treatment Notes Treatment Clinical Notes Feb, Encntr for general adult medical exam w/o abnormal findings (ICD-10 - Z00.00) Feb, Other No change today...Continue as is...FU PRN/Yearly... [employer] Other Evaluation noteNo InformationNort Everlasting [employer] Other Evaluation note* Diagnosis Third trimester state, incidental documented in this [facility]: History general Narrative - Reported* Type Description Date Medical History Hx of MRSA Medical History anxiety Surgical History tonsillectomy and adenoidectomy 2012 Surgical History c-sections 2009 and 2017 Hospitalization History C Sections [facility] [employer] Other Summary Purpose Family History No Family History Records FoundNo Family History Records FoundNo Family History Records Found Advance Directives Advance Directive Response Recorded Date/ Time Advance Directives No April 03, 2018 12:04pm Chief Complaint and Reason for Visit Chief Complaint [facility] pre emp Additional Source Comments INFORMATION SOURCE (unrecogn ized section and content) DATE CREATED AUTHOR 12/19/2020 [facility] DATE CREATED AUTHOR AUTHOR'S ORGANIZ ATION 09/22/2023 [facility] DATE CREATED AUTHOR AUTHOR'S ORGANIZ ATION 01/15/2024 [facility] EPIC REASON FOR VISIT (unrecogniz ed section and content) Reason Comments Routine Visit Care Teams (unrecognized sec tion and content) Taker Off Hemp Fiber Relationship Specialty Start Date End Date Urban Santana MD [address] [place] [phone] PCP - General Family Medicine 11/18/22 Team [...] September 18, 2023 End: September 18, 2023 Edward Radatz Jr, DO Attending Provider Active S tart: September 18, 2023 End: September 18, 2023 Taker Off Hemp Fiber Relationship Specialty Start Date End Date Urban Santana MD [address] [phone] PCP - General Family Medicine 11/18/22 Taker Off Hemp Fiber Relationship Specialty Start Date End Date Urban Santana MD [address] [phone] PCP - General Family Medicine 11/18/22 Goals (unrecognized section and content) Goals may [...] BE BASED ON THE PRIMARY CLINICAL RECORDS. [facility] [employer] provides no warranty or guarantee of the accuracy or completeness of information in this document.
--- OUTSIDE RECORDS SUMMARY | 2024-04-15 17:58 | XMS_ITS | CCD ---
Author Organization [facility] Care Team Providers Care Ocean Freight Manager Name Role Phone DR SURY CENTENO Primary Care Unavailable MAGUE, DR MAUDE Pathak Admitting Unavailchristiana BOWSER, DR MAUDE Pathak Consulting Unavailchristiana BOWSER, DR MAUDE Pathak Attending UnavailJackie Morrow Consulting Unavailable Urban Santana Unavailable Georgie Disla Unavailable Dontrell Gallegos Unavailable Susanne Huitron Unavailable Urban Santana MD Primary Care Provider DO Urban Santana Primary Care Provider DO Tashi Tom Jr Attending Provider [phone] Tashi Tom Jr Attending Unavailable Tashi Tom [...] Test Name Value Interpretation Reference Range Facility [facility] PREG QUANT HCGon 024 HCG QUANTITATIVE 6694 mIU/mL [facility] Comment on above: 5-50 0.2-1 WEEK 50-500 1-2 WEEKS 100-5,000 2-3 WEEKS 500-10,000 3-4 WEEKS 1,000-50,000 4-5 WEEKS 10,000-100,000 5-6 WEEKS 15,000-200,000 6-8 WEEKS 10,000-100,000 2-3 MONTHS [facility] PREG QUANT HCGon 024 HCG QUANTITATIVE 3710 mIU/mL [facility] Comment on above: 5-50 0.2-1 WEEK 50-500 1-2 WEEKS 100-5,000 2-3 WEEKS 500-10,000 3-4 WEEKS 1,000-50,000 4-5 WEEKS 10,000-100,000 5-6 WEEKS 15,000-200,000 6-8 WEEKS 10,000-100,000 2-3 MONTHS [facility] Alanine aminotransferase [En zymatic activity/volume] in Serum or PlasmaOrdered By: Georgie Calvo on 09-18-2023 ALT [Catalytic activity/Vol] 23 U/L 7-52 [facility] Albumin [Mass/volume] in Ser um or Plasma by Bromocresol green (BCG) dye binding methoOrdered By: Georgie Calvo on 09-18-2023 Albumin BCG dye [Mass/Vol] 4.7 g/dL 3.5-5.7 [facility] Alkaline phosphatase [Enzyma tic activity/volume] in Serum or PlasmaOrdered By: Georgie Calvo on 09-18-2023 ALP [Catalytic activity/Vol] 72 U/L 34-104 [facility] Aspartate aminotransferase [ Enzymatic activity/volume] in Serum or PlasmaOrdered By: Georgie Calvo on 09-18-2023 AST [Catalytic activity/Vol] 26 U/L 13-39 [facility] Bilirubin.total [Mass/volume ] in Serum or PlasmaOrdered By: Georgie Calvo on 04-25-2024 Bilirubin [Mass/Vol] 0.7 mg/dL 0.3-1.0 [facility] CMP with reflex to A1Con Albumin [Mass/Vol] 4.7 g/dL Normal 3.5-5.7 [facility] Comment on above: Performed By: #### N ICOTINE QUAL #### [facility] , #### CMP wRFX A1C, EBS LIPID #### [facility] [address] Albumin/Globulin [Mass ratio] 2.0 {ratio} Normal [facility] Comment on above: Performed By: #### N ICOTINE QUAL #### [facility] , #### CMP wRFX A1C, EBS LIPID #### [facility] [address] [place] [address] ALP [Catalytic activity/Vol] 72 U/L Normal 34-104 [facility] Comment on above: Performed By: #### N ICOTINE QUAL #### [facility] , #### CMP wRFX A1C, EBS LIPID #### [facility] [address] [place] [address] [place] ALT [Catalytic activity/Vol] 23 U/L Normal 7-52 [facility] Comment on above: Performed By: #### N ICOTINE QUAL #### [facility] , #### CMP wRFX A1C, EBS LIPID #### [facility] [address] [place] [address] Anion gap [Moles/Vol] 12.5 mmol/L Normal 6.0-15.0 [facility] Comment on above: Performed By: #### N ICOTINE QUAL #### [facility] , #### CMP wRFX A1C, EBS LIPID #### [facility] [address] [place] [address] [place] AST [Catalytic activity/Vol] 26 U/L Normal 13-39 [facility] Comment on above: Performed By: #### N ICOTINE QUAL #### [facility] , #### CMP wRFX A1C, EBS LIPID #### [facility] [address] [place] [address] [place] Bilirubin [Mass/Vol] 0.7 mg/dL Normal 0.3-1.0 [facility] Comment on above: Performed By: #### N ICOTINE QUAL #### [facility] , #### CMP wRFX A1C, EBS LIPID #### [facility] [address] [place] [address] [place] Calcium [Mass/Vol] 10.1 mg/dL Normal 8.6-10.3 [facility] Comment on above: Performed By: #### N ICOTINE QUAL #### [facility] , #### CMP wRFX A1C, EBS LIPID #### [place] [address] [place] Chloride [Moles/Vol] 101 mmol/L Normal 98-107 [facility] Comment on above: Performed By: #### N ICOTINE QUAL #### [facility] , #### CMP wRFX A1C, EBS LIPID #### [facility] [address] [place] [address] [place] CO2 [Moles/Vol] 28.5 mmol/L Normal 21.0-31.0 [facility] Comment on above: Performed By: #### N ICOTINE QUAL #### [facility] , #### CMP wRFX A1C, EBS LIPID #### [facility] [address] [place] [address] [place] Creatinine [Mass/Vol] 0.79 mg/dL Normal 0.60-1.20 [facility] Comment on above: Performed By: #### N ICOTINE QUAL #### [facility] , #### CMP wRFX A1C, EBS LIPID #### [facility] [address] [place] [address] [place] GFR/1.73 sq M.predicted MDRD (S/P/Bld) [Vol rate/Area] mL/min/{1.73_m2} Normal [facility] Comment on above: Performed By: #### N ICOTINE QUAL #### [facility] , #### CMP wRFX A1C, EBS LIPID #### [address] Globulin (S) [Mass/Vol] 2.4 g/dL Normal [facility] Comment on above: Performed By: #### N ICOTINE QUAL #### [facility] , #### CMP wRFX A1C, EBS LIPID #### [address] Glucose [Mass/Vol] 78 mg/dL Normal 70-100 [facility] Comment on above: Performed By: #### N ICOTINE QUAL #### [facility] , #### CMP wRFX A1C, EBS LIPID #### [address] Potassium [Moles/Vol] 4.0 mmol/L Normal 3.5-5.1 [facility] Comment on above: Performed By: #### N ICOTINE QUAL #### [facility] , #### CMP wRFX A1C, EBS LIPID #### [address] Protein [Mass/Vol] 7.1 g/dL Normal 6.4-8.9 [facility] Comment on above: Performed By: #### N ICOTINE QUAL #### [facility] , #### CMP wRFX A1C, EBS LIPID #### [place] [address] [place] Sodium [Moles/Vol] 138 mmol/L Normal 136-145 [facility] Comment on above: Performed By: #### N ICOTINE QUAL #### [facility] , #### CMP wRFX A1C, EBS LIPID #### [facility] [address] [place] [address] [place] Urea nitrogen [Mass/Vol] 14 mg/dL Normal 7-25 [facility] Comment on above: Performed By: #### N ICOTINE QUAL #### [facility] , #### CMP wRFX A1C, EBS LIPID #### [facility] [address] [place] [address] [place] Calcium [Mass/volume] in Ser um or PlasmaOrdered By: Georgie Calvo on 09-18-2023 Calcium [Mass/Vol] 10.1 mg/dL 8.6-10.3 [facility] Carbon dioxide, total [Moles /volume] in Serum or PlasmaOrdered By: Georgie Calvo on 09-18-2023 CO2 [Moles/Vol] 28.5 mmol/L 21.0-31.0 [facility] Chloride [Moles/volume] in S fabiana or PlasmaOrdered By: Georgie Calvo on 09-18-2023 Chloride [Moles/Vol] 101 mmol/L 98-107 [facility] Cholesterol [Mass/volume] in Serum or PlasmaOrdered By: Georgie Calvo on 09-18-2023 Cholesterol [Mass/Vol] 239 mg/dL 140-200 [facility] Comment on above: Chol less than 200 m g/dl low riskChol 201-239 mg/dl borderline riskChol 240 mg/dl and greater high risk Cholesterol in LDL Calc [Mas s/Vol]Ordered By: Georgie Calvo on 09-18-2023 Cholesterol in LDL [Mass/Vol] 154 mg/dL 0-100 [facility] Comment on above: LDL ATP III CLASSIFI CATIONLDL less than 100 mg/dL OptimalLDL 100-129 mg/dL Near or above optimalLDL 130-159 mg/dL Borderline highLDL 160-189 mg/dL HighLDL greater than 189 mg/dL Very high Cholesterol in VLDL Calc [Ma ss/Vol]Ordered By: Georgie Calvo on 09-18-2023 Cholesterol in VLDL [Mass/Vol] 14 mg/dL [facility] Creatinine [Mass/volume] in Serum or PlasmaOrdered By: Georgie Calvo on 09-18-2023 Creatinine [Mass/Vol] 0.79 mg/dL 0.60-1.20 [facility] Globulin Calc (S) [Mass/Vol] Ordered By: Georgiedarnell Calvo on 09-18-2023 Globulin (S) [Mass/Vol] 2.4 g/dL [facility] Glucose [Mass/volume] in Ser um or PlasmaOrdered By: Georgie Calvo on 09-18-2023 Glucose [Mass/Vol] 78 mg/dL 70-100 [facility] Lipid Profileon 09-18-2023 Cholesterol [Mass/Vol] 239 mg/dL High 140-200 [facility] Comment on above: Result Comment: Chol less than 200 mg/dl low risk Chol 201-239 mg/dl borderline risk Chol 240 mg/dl and greater high risk Performed By: #### N ICOTINE QUAL #### [facility] , #### CMP wRFX A1C, EBS LIPID #### [facility] [address] Cholesterol in HDL [Mass/Vol] 70 mg/dL Normal 23-92 [facility] Comment on above: Result Comment: HDL CHOL ATP-III CLASSIFICATION Cardiovascular Risk HDL > or equal to 60 mg/dL LOW HDL < 40 mg/dL HIGH Performed By: #### N ICOTINE QUAL #### [facility] , #### CMP wRFX A1C, EBS LIPID #### [facility] [address] Cholesterol.total/[place] sterol in HDL [Mass ratio] 3.4 {ratio} Normal <5.0 [facility] Comment on above: Result Comment: PERF ORMED BY: [place] [address] PATHOLOGIST PULMONOLOGIST INTENSIVIST ROBERT WEBB M.D. Performed By: #### N ICOTINE QUAL #### [facility] , #### CMP wRFX A1C, EBS LIPID #### [facility] [address] LDL Cholesterol,Calculated 154 mg/dL High 0-100 [facility] Comment on above: Result Comment: LDL ATP III CLASSIFICATION LDL less than 100 mg/dL Optimal LDL 100-129 mg/dL Near or above optimal LDL 130-159 mg/dL Borderline high LDL 160-189 mg/dL High LDL greater than 189 mg/dL Very high Performed By: #### N ICOTINE QUAL #### [facility] , #### CMP wRFX A1C, EBS LIPID #### [address] Triglyceride w/Reflex 73 mg/dL Normal 0-149 [facility] Comment on above: Result Comment: TRIG ATP III CLASSIFICATION TRIG less than 150 mg/dL Normal TRIG 150-199 mg/dL Borderline high TRIG 200-500 mg/dL High TRIG greater than 500 mg/dL Very high Standard traceable to the Center for Disease Conrtrol and Prevention (CDC) test method. Performed By: #### N ICOTINE QUAL #### [facility] , #### CMP wRFX A1C, EBS LIPID #### [address] VLDL CHOLESTEROL 14 mg/dL Normal [facility] Comment on above: Performed By: #### N ICOTINE QUAL #### [facility] , #### CMP wRFX A1C, EBS LIPID #### [address] Nicotine Metabolite, Qualon 09-18-2023 Nicotine Metabolite Negative Normal Cutoff=25 [facility] Comment on above: Result Comment: Perf ormed at: BN - [facility] [address] [id number] Distribution Sales Manager: Josh Ortez MD, Phone: [phone] PERFORMED BY: [place] [address] PATHOLOGIST PULMONOLOGIST INTENSIVIST ROBERT WEBB M.D. Performed By: #### N ICOTINE QUAL #### [facility] , #### CMP wRFX A1C, EBS LIPID #### [address] [place] [address] [facility] No Panel InformationOrdered By: Georgie Calvo on 09-18-2023 Estimated GFR (CKD-EPI) > 60.0 mL/Min [facility] Creatinine Clearance (Chem N/A [facility] Potassium [Moles/volume] in Serum or PlasmaOrdered By: Georgie Calvo on 09-18-2023 Potassium [Moles/Vol] 4.0 mmol/L 3.5-5.1 [facility] Protein [Mass/volume] in Ser um or PlasmaOrdered By: Georgie Calvo on 09-18-2023 Protein [Mass/Vol] 7.1 g/dL 6.4-8.9 [facility] Serum or plasma albumin/glob ulin mass ratioOrdered By: Georgie Calvo on 09-18-2023 Albumin/Globulin [Mass ratio] 2.0 {ratio} [facility] Serum or plasma anion gap de terminationOrdered By: Georgie Calvo on 09-18-2023 Anion gap [Moles/Vol] 12.5 mmol/L 6.0-15.0 [facility] Serum or plasma high density lipoprotein (HDL) cholesterol measurementOrdered By: Georgie Calvo on 09-18-2023 Cholesterol in HDL [Mass/Vol] 70 mg/dL 23-92 [facility] Comment on above: HDL CHOL ATP-III CLA SSIFICATION Cardiovascular RiskHDL > or equal to 60 mg/dL LOWHDL < 40 mg/dL HIGH Serum or plasma total choles terol/high density lipoprotein (HDL) cholesterol mass ratOrdered By: Georgie Calvo on 09-18-2023 Cholesterol.total/[place] sterol in HDL [Mass ratio] 3.4 {ratio} <5.0 [facility] Sodium [Moles/volume] in Ser um or PlasmaOrdered By: Georgie Calvo on 09-18-2023 Sodium [Moles/Vol] 138 mmol/L 136-145 [facility] Triglyceride [Mass/volume] i n Serum or PlasmaOrdered By: Georgie Calvo on 09-18-2023 Triglyceride [Mass/Vol] 73 mg/dL 0-[address] [facility] Comment on above: TRIG ATP III CLASSIF ICATIONTRIG less than 150 mg/dL NormalTRIG 150-199 mg/dL Borderline highTRIG 200-500 mg/dL High TRIG greater than 500 mg/dL Very highStandard traceable to the Center for Disease Conrtrol and Prevention (CDC) test method. Urea nitrogen [Mass/volume] in Serum or PlasmaOrdered By: Georgie Calvo on 09-18-2023 Urea nitrogen [Mass/Vol] 14 mg/dL 12-17 [facility] Basophils Auto (Bld) [#/Vol] on 08-05-2023 Basophils (Bld) [#/Vol] 0.0 10 3/uL 0.0-0.1 [facility] Basophils/100 WBC Auto (Bld) on 08-05-2023 Basophils/100 WBC (Bld) 0.2 % 0.2-2.0 [facility] Eosinophils/100 WBC Auto (Bl d)on 08-05-2023 Eosinophils/100 WBC (Bld) 0.1 % 0.9-7.0 [facility] Erythrocyte distribution wid th Auto (RBC) [Ratio]on 08-05-2023 Erythrocyte distribution width (RBC) [Ratio] 13.8 % 11.0-15.0 [facility] Hematocrit Auto (Bld) [Volum e fraction]on 08-05-2023 Hematocrit (Bld) [Volume fraction] 33.5 % 36.0-48.0 [facility] Hemoglobin [Mass/volume] in Bloodon 08-05-2023 Hemoglobin (Bld) [Mass/Vol] 10.7 g/dL 12.0-16.0 [facility] Laboratory - Hematology and Cell countson 08-05-2023 Immature granulocytes/100 WBC (Bld) 0.5 % 0.0-0.5 [facility] Leukocytes [#/volume] correc oneal for nucleated erythrocytes in Blood by Automated counon 08-05-2023 WBC corrected for nucl RBC Auto (Bld) [#/Vol] 19.3 10 3/uL 4.0-11.0 [facility] Lymphocytes Auto (Bld) [#/Vo l]on 08-05-2023 Lymphocytes (Bld) [#/Vol] 1.7 10 3/uL 1.2-3.8 [facility] Lymphocytes/100 WBC Auto (Bl d)on 08-05-2023 Lymphocytes/100 WBC (Bld) 9.0 % 20.5-60.0 [facility] MCH Auto (RBC) [Entitic mass ]on 08-05-2023 MCH (RBC) [Entitic mass] 27.9 pg 26.7-34.0 [facility] MCHC Auto (RBC) [Mass/Vol]on 08-05-2023 MCHC (RBC) [Mass/Vol] 31.9 g/dL 29.9-35.2 [facility] MCV Auto (RBC) [Entitic vol] on 08-05-2023 MCV (RBC) [Entitic vol] 87.2 fL 81.0-99.0 [facility] Monocytes Auto (Bld) [#/Vol] on 08-05-2023 Monocytes (Bld) [#/Vol] 0.5 10 3/uL 0.3-0.8 [facility] Monocytes/100 WBC Auto (Bld) on 08-05-2023 Monocytes/100 WBC (Bld) 2.8 % 1.7-12.0 [facility] Neutrophils Auto (Bld) [#/Vo l]on 08-05-2023 Neutrophils (Bld) [#/Vol] 16.9 10 3/uL 1.4-6.5 [facility] Neutrophils/100 WBC Auto (Bl d)on 08-05-2023 Neutrophils/100 WBC (Bld) 87.4 % 43.0-75.0 [facility] No Panel Informationon 08-04 Eosinophils # (Auto) 0.0 10 3/uL 0.0-0.7 [facility] Immature Granulocyte # (Auto) 0.09 10 3/uL 0.00-0.03 [facility] Platelet mean volume Auto (B ld) [Entitic vol]on 08-05-2023 Platelet mean volume (Bld) [Entitic vol] 10.4 fL 9.5-13.5 [facility] Platelets Auto (Bld) [#/Vol] on 08-05-2023 Platelets (Bld) [#/Vol] 199 10 3/uL 150-450 [facility] RBC Auto (Bld) [#/Vol]on RBC (Bld) [#/Vol] 3.84 10 6/uL 4.20-5.40 [facility] Basophils Auto (Bld) [#/Vol] on 08-04-2023 Basophils (Bld) [#/Vol] 0.0 10 3/uL 0.0-0.1 [facility] Basophils/100 WBC Auto (Bld) on 08-04-2023 Basophils/100 WBC (Bld) 0.2 % 0.2-2.0 [facility] Buprenorphine [Presence] in Urineon 08-04-2023 Buprenorphine Ql (U) Negative NEGATIVE [facility] Comment on above: DRUG CLASS TEST SYST EM CUT-OFF CONCENTRATIONS ARE ASFOLLOWS:AMP (Amphetamine): 500 ng/mLBAR (Barbiturates): 200 ng/mLBZO (Benzodiazepines): 150 ng/mLBUP (Buprenorphine): 10 ng/mLCOC (Cocaine): 150 ng/mLmAMP (Methamphetamine): 500 ng/mLMTD (Methadone): 200 ng/mLOPI (Opiates): 100 ng/mLOXY (Oxycodone): 100 ng/mLPCP (Phencyclidine): 25 ng/mLTHC (Cannabinoids): 50 ng/mLTCA (Trycyclic Antidepressants): 300 ng/mL Eosinophils/100 WBC Auto (Bl d)on 08-04-2023 Eosinophils/100 WBC (Bld) 0.4 % 0.9-7.0 [facility] Erythrocyte distribution wid th Auto (RBC) [Ratio]on 08-04-2023 Erythrocyte distribution width (RBC) [Ratio] 13.7 % 11.0-15.0 [facility] Hematocrit Auto (Bld) [Volum e fraction]on 08-04-2023 Hematocrit (Bld) [Volume fraction] 37.3 % 36.0-48.0 [facility] Hemoglobin [Mass/volume] in Bloodon 08-04-2023 Hemoglobin (Bld) [Mass/Vol] 12.1 g/dL 12.0-16.0 [facility] - Drug toxicology on 08-04-2023 Amphetamines Ql (U) Negative NEGATIVE [facility] Benzodiazepines Ql (U) Negative NEGATIVE [facility] Cocaine Ql (U) Negative NEGATIVE [facility] Opiates Ql (U) Negative NEGATIVE [facility] Phencyclidine Ql (U) Negative NEGATIVE [facility] Laboratory - Hematology and Cell countson 08-04-2023 Immature granulocytes/100 WBC (Bld) 0.3 % 0.0-0.5 [facility] Leukocytes [#/volume] correc oneal for nucleated erythrocytes in Blood by Automated counon 08-04-2023 WBC corrected for nucl RBC Auto (Bld) [#/Vol] 11.9 10 3/uL 4.0-11.0 [facility] Lymphocytes Auto (Bld) [#/Vo l]on 08-04-2023 Lymphocytes (Bld) [#/Vol] 3.4 10 3/uL 1.2-3.8 [facility] Lymphocytes/100 WBC Auto (Bl d)on 08-04-2023 Lymphocytes/100 WBC (Bld) 28.8 % 20.5-60.0 [facility] MCH Auto (RBC) [Entitic mass ]on 08-04-2023 MCH (RBC) [Entitic mass] 27.8 pg 26.7-34.0 [facility] MCHC Auto (RBC) [Mass/Vol]on 08-04-2023 MCHC (RBC) [Mass/Vol] 32.4 g/dL 29.9-35.2 [facility] MCV Auto (RBC) [Entitic vol] on 08-04-2023 MCV (RBC) [Entitic vol] 85.6 fL 81.0-99.0 [facility] Methadone [Presence] in Urin e by Screen methodon 08-04-2023 Methadone Screen Ql (U) Negative NEGATIVE [facility] Monocytes Auto (Bld) [#/Vol] on 08-04-2023 Monocytes (Bld) [#/Vol] 0.5 10 3/uL 0.3-0.8 [facility] Monocytes/100 WBC Auto (Bld) on 08-04-2023 Monocytes/100 WBC (Bld) 4.6 % 1.7-12.0 [facility] Neutrophils Auto (Bld) [#/Vo l]on 08-04-2023 Neutrophils (Bld) [#/Vol] 7.8 10 3/uL 1.4-6.5 [facility] Neutrophils/100 WBC Auto (Bl d)on 08-04-2023 Neutrophils/100 WBC (Bld) 65.7 % 43.0-75.0 [facility] No Panel Informationon 08-03 Eosinophils # (Auto) 0.1 10 3/uL 0.0-0.7 Fir [facility] Immature Granulocyte # (Auto) 0.04 10 3/uL 0.00-0.03 [facility] Urine Barbiturates Screen Negative NEGATIVE [facility] Urine Marijuana (THC) Screen Negative NEGATIVE [facility] Urine Methamphetamines Screen Negative NEGATIVE [facility] Platelet mean volume Auto (B ld) [Entitic vol]on 08-04-2023 Platelet mean volume (Bld) [Entitic vol] 10.0 fL 9.5-13.5 [facility] Platelets Auto (Bld) [#/Vol] on 08-04-2023 Platelets (Bld) [#/Vol] 228 10 3/uL 150-450 [facility] RBC Auto (Bld) [#/Vol]on RBC (Bld) [#/Vol] 4.36 10 6/uL 4.20-5.40 [facility] Urine tricyclic antidepressa nt measurementon 08-04-2023 Tricyclic antidepressants (U) [Mass/Vol] Negative NEGATIVE [facility] oxyCODONE+oxyMORphone [Prese nce] in Urine by Screen methodon 08-04-2023 oxyCODONE+oxyMORphone Screen Ql (U) Negative NEGATIVE [facility] Basophils Auto (Bld) [#/Vol] on 07-21-2023 Basophils (Bld) [#/Vol] 0.0 10 3/uL 0.0-0.1 [facility] Basophils/100 WBC Auto (Bld) on 07-21-2023 Basophils/100 WBC (Bld) 0.3 % 0.2-2.0 [facility] Eosinophils/100 WBC Auto (Bl d)on 07-21-2023 Eosinophils/100 WBC (Bld) 0.6 % 0.9-7.0 [facility] Erythrocyte distribution wid th Auto (RBC) [Ratio]on 07-21-2023 Erythrocyte distribution width (RBC) [Ratio] 13.4 % 11.0-15.0 [facility] Hematocrit Auto (Bld) [Volum e fraction]on 07-21-2023 Hematocrit (Bld) [Volume fraction] 38.1 % 36.0-48.0 [facility] Hemoglobin [Mass/volume] in Bloodon 07-21-2023 Hemoglobin (Bld) [Mass/Vol] 12.3 g/dL 12.0-16.0 [facility] - Hematology and Cell countson 07-21-2023 Immature granulocytes/100 WBC (Bld) 0.3 % 0.0-0.5 [facility] Leukocytes [#/volume] correc oneal for nucleated erythrocytes in Blood by Automated counon 07-21-2023 WBC corrected for nucl RBC Auto (Bld) [#/Vol] 10.7 10 3/uL 4.0-11.0 [facility] Lymphocytes Auto (Bld) [#/Vo l]on 07-21-2023 Lymphocytes (Bld) [#/Vol] 2.8 10 3/uL 1.2-3.8 [facility] Lymphocytes/100 WBC Auto (Bl d)on 07-21-2023 Lymphocytes/100 WBC (Bld) 25.8 % 20.5-60.0 [facility] MCH Auto (RBC) [Entitic mass ]on 07-21-2023 MCH (RBC) [Entitic mass] 27.9 pg 26.7-34.0 [facility] MCHC Auto (RBC) [Mass/Vol]on 07-21-2023 MCHC (RBC) [Mass/Vol] 32.3 g/dL 29.9-35.2 [facility] MCV Auto (RBC) [Entitic vol] on 07-21-2023 MCV (RBC) [Entitic vol] 86.4 fL 81.0-99.[address] [facility] Monocytes Auto (Bld) [#/Vol] on 07-21-2023 Monocytes (Bld) [#/Vol] 0.4 10 3/uL 0.3-0.8 [facility] Monocytes/100 WBC Auto (Bld) on 07-21-2023 Monocytes/100 WBC (Bld) 4.1 % 1.7-12.0 [facility] Neutrophils Auto (Bld) [#/Vo l]on 07-21-2023 Neutrophils (Bld) [#/Vol] 7.4 10 3/uL 1.4-6.5 [facility] Neutrophils/100 WBC Auto (Bl d)on 07-21-2023 Neutrophils/100 WBC (Bld) 68.9 % 43.0-75.0 [facility] No Panel Informationon 07-21 Eosinophils # (Auto) 0.1 10 3/uL 0.0-0.7 [facility] Immature Granulocyte # (Auto) 0.03 10 3/uL 0.00-0.03 [facility] Platelet mean volume Auto (B ld) [Entitic vol]on 07-21-2023 Platelet mean volume (Bld) [Entitic vol] 9.8 fL 9.5-13.5 [facility] Platelets Auto (Bld) [#/Vol] on 07-21-2023 Platelets (Bld) [#/Vol] 220 10 3/uL 150-450 [facility] RBC Auto (Bld) [#/Vol]on RBC (Bld) [#/Vol] 4.41 10 6/uL 4.20-5.40 [facility] Urinalysis macro (dipstick) panel (U)on 07-08-2023 Bilirubin, UA Negative Negative - 4(70) +++ mg/dL [facility] Blood, UA Negative Negative - 50 Rodriguez/mcL [facility] Clarity, UA Clear [facility] Color, UA Yellow [facility] Glucose, UA Negative Negative - 2000(110) ++++ mg/dL [facility] Interpretation and review of laboratory results Abnormal [facility] Ketones, UA Negative Negative - 160(16) ++++ mg/dL [facility] Leukocytes, UA Positive Negative - 500+++ Dg/mcL [facility] Nitrite, UA Negative Negative - Positive [facility] pH, UA 5.5 5 - 9 [facility] Protein, UA Negative Negative - 2000(20) ++++ mg/dL [facility] Spec Grav, UA 1.015 1 - 1.03 [facility] Urobilinogen, UA 1.0 0.2 - 12 mg/dL [facility] Urine Cultureon 08-07-2022 Urine Culture >100,000 [facility] Other Urine Culture <16 Susceptible [facility] Other Urine Culture <8/4 Susceptible [facility] Other Urine Culture >16 Resistant [facility] Other Urine Culture <4 Susceptible [facility] Other Urine Culture <2 Susceptible [facility] Other Urine Culture <1 Susceptible [facility] Other Urine Culture <0.25 Susceptible [facility] Other Urine Culture <0.5 Susceptible [facility] Other Urine Culture >8 Resistant [facility] Other Urine Culture <32 Susceptible [facility] Other Urine Culture 4 Susceptible [facility] Other Urine Culture >2/38 Resistant [facility] Other SARS-CoV-2 (COVID-19) RNA NA A+probe Ql (Resp)on 02-13-2022 SARS-CoV-2 (COVID-19) RNA CLAY+probe Ql (Unsp spec) Positive [facility] Other SARS-CoV-2 (COVID-19) RNA NA A+probe Ql (Resp)on 02-11-2022 SARS-CoV-2 (COVID-19) RNA CLAY+probe Ql (Unsp spec) Negative [facility] Other SARS-CoV-2 (COVID-19) RNA NA A+probe Ql (Resp)on 01-12-2022 SARS-CoV-2 (COVID-19) RNA CLAY+probe Ql (Unsp spec) Negative [facility] Other XR FOREARM RT 2Von 1 XR [...] by: JACKIE WILLETT Date: 2020-12-16 14:53 Normal [facility] Vital Signs Date Time Vital Sign Value Performing Clinician Facility 07-08-2023 13:27-0500 Body mass index (BMI) [Ratio] 38.51 kg/m2 Arpita GARDNER Work Phone: [facility] 07-08-2023 13:27-0500 Body weight 116.57 kg Arpita GARDNER Work Phone: [facility] 07-08-2023 13:27-0500 Diastolic blood pressure 70 mm[Hg] Arpita GARDNER Work Phone: [facility] 07-08-2023 13:27-0500 Systolic blood pressure 112 mm[Hg] Arpita GARDNER Work Phone: [facility] 03-01-2022 09:00-0400 Body height 175.26 cm Urban Max Other [facility] Other 03-01-2022 09:00-0400 Body mass index (BMI) [Ratio] 33.81 kg/m2 Urban Max Other [facility] Other 03-01-2022 09:00-0400 Body temperature 97.9 [degF] Urban Max Other [facility] Other 03-01-2022 09:00-0400 Body weight 103.87 kg Urban Max Other [facility] Other 03-01-2022 09:00-0400 Diastolic blood pressure 80 mm[Hg] Urban Max Other [facility] Other 03-01-2022 09:00-0400 Respiratory rate 20 /min Urban Max Other [facility] Other 03-01-2022 09:00-0400 SaO2% (BldA) [Mass fraction] 97 % Urban Max Other [facility] Other 03-01-2022 09:00-0400 Systolic blood pressure 118 mm[Hg] Urban Max Other [facility] Other 01-18-2022 09:45-0400 Body height 175.26 cm Urban Max Other [facility] Other 01-18-2022 09:45-0400 Body mass index (BMI) [Ratio] 32.93 kg/m2 Urban Max Other [facility] Other 01-18-2022 09:45-0400 Body temperature 97.3 [degF] Urban Max Other [facility] Other 01-18-2022 09:45-0400 Body weight 101.15 kg Urban Max Other [facility] Other 01-18-2022 09:45-0400 Diastolic blood pressure 72 mm[Hg] Urban Max Other [facility] Other 01-18-2022 09:45-0400 Respiratory rate 20 /min Urban Max Other [facility] Other 01-18-2022 09:45-0400 SaO2% (BldA) [Mass fraction] 98 % Urban Max Other [facility] Other 01-18-2022 09:45-0400 Systolic blood pressure 112 mm[Hg] Urban Max Other [facility] Other 03-05-2021 16:15-0400 Body height 175.26 cm Urban Max Other [facility] Other 03-05-2021 16:15-0400 Body mass index (BMI) [Ratio] 35.14 kg/m2 Urban Max Other [facility] Other 03-05-2021 16:15-0400 Body weight 107.96 kg Urban Max Other [facility] Other 03-05-2021 16:15-0400 Diastolic blood pressure 68 mm[Hg] Urban Max Other [facility] Other 03-05-2021 16:15-0400 Respiratory rate 20 /min Urban Max Other [facility] Other 03-05-2021 16:15-0400 SaO2% (BldA) [Mass fraction] 98 % Urban Santana Other [facility] Other 03-05-2021 16:15-0400 Systolic blood pressure 110 mm[Hg] Urban Santana Other [facility] Other Encounters Encounter Date Encounter Type Care [...] 09-18-2023 End: 09-18-2023 ambulatory Tashi Tom Jr Facility:[facility] Start: 09-18-2023 End: 09-18-2023 ambulatory DO Urban Andrewsgles Work Phone: [facility] Work Phone: Start: 09-18-2023 End: 09-18-2023 Departed Referred DO Urban Max Work Phone: [facility] [address] Work Phone: Start: 09-16-2023 End: 09-16-2023 ambulatory ARPITA UZMA Not Available Start: 08-12-2023 End: 08-12-2023 ambulatory ARPITA UZMA Not Available Start: 08-05-2023 Non-patient / Non-visit DO Urban Max Work Phone: [facility] Work Phone: Start: 08-04-2023 Non-patient / Non-visit DO Urban Max Work Phone: [facility] Work Phone: Start: 07-29-2023 End: 07-29-2023 ambulatory ARPITA UZMA Not Available Start: 07-22-2023 End: 07-22-2023 ambulatory TALITA HAMLINO Not Available Start: 07-21-2023 Non-patient / Non-visit DO Urban Max Work Phone: [facility] Work Phone: Start: 07-08-2023 [...] 09-10-2022 End: 09-10-2022 ambulatory Susanne Huitron Other [facility] Other Start: 09-10-2022 Telephone encounter Susanne jnae [facility] Start: 08-21-2022 End: 08-21-2022 ambulatory Dontrell Gallegos Other [facility] Other Start: 08-21-2022 Telephone encounter Dontrell Perez [facility] Start: 08-09-2022 End: 08-09-2022 ambulatory Urban Max Other [facility] Other Start: 08-09-2022 Telephone encounter Urban Max [facility] Start: 08-06-2022 End: 08-06-2022 ambulatory Urban Max Other [facility] Other Start: 08-06-2022 Telephone encounter Urban Max [facility] Start: 03-26-2022 End: 03-26-2022 ambulatory Urban Max Other [facility] Other Start: 03-26-2022 Telephone encounter Urban Max [facility] Start: 03-01-2022 End: 03-01-2022 ambulatory Urban Max Other [facility] Other Start: 03-01-2022 Encounter for genera l adult medical examination without abnormal findings Urban Max [facility] Start: 03-01-2022 Periodic preventive med est patient 18-39 yrs Urban Max [facility] Start: 02-13-2022 End: 02-13-2022 ambulatory Georgiedarnell Disla Other [facility] Other Start: 02-13-2022 Nursing evaluation o f patient and report Georgie Nighat [facility] Start: 02-11-2022 End: 02-11-2022 ambulatory Georgie Nighat Other [facility] Other Start: 02-11-2022 Nursing evaluation o f patient and report Georgie Nighat [facility] Start: 01-18-2022 End: 01-18-2022 ambulatory Urban Max Other [facility] Other Start: 01-18-2022 Office outpatient visit 15 minutes Urban Santana [facility] Start: 01-12-2022 End: 01-12-2022 ambulatory Georgie Nighat Other [facility] Other Start: 01-12-2022 Nursing evaluation o f patient and report Georgie Disla [facility] Start: 03-05-2021 Encounter for genera l adult medical examination without abnormal findings Urbanjulito Santana [facility] Start: 03-05-2021 Periodic preventive med est patient 18-39 yrs Urbanjulito Santana [facility] Start: 12-16-2020 End: 12-16-[address] [place] [facility] Facility:H1 Procedures Date Procedure Procedure Detail Performing [...] AM EST Initial [facility] [address] [phone] [facility] Start: 05-07-2024 End: 05-07-2024 Professional / ancillary services management 05/07/2024 10:00 AM EST Ancillary Procedure [facility] [address] [place] [phone] [facility] Start: 01-25-2024 Influenza vaccination Influenz a Vaccine (#1) [facility] Start: 09-18-2023 [facility] Start: 01-24-2023 Influenza vaccination Influenz a Vaccine (#1) [facility] Immunizations Immunization Date Immunization Notes Care Provider Serjio bay 09-18-2023 influenza virus vaccine, unspecified formulation Talita Godinez DO Work Phone: [facility] 03-20-2021 COVID-19 mRNA-1273 (Moderna) DO Urban Max Work Phone: [facility] 02-27-2021 influenza, seasonal, injectable Urban Max Other [facility] 06-20-2020 COVID-19 mRNA-1273 (Moderna) DO Urban Max Work Phone: [facility] 05-23-2020 COVID-19 mRNA-1273 (Moderna) DO Urban Max Work Phone: [facility] 02-29-2020 influenza, injectable, quadrivalent, contains preservative Urban Max Other [facility] Other 02-29-2020 influenza, injectable, quadrivalent, preservative free DO Urban Max Work Phone: [facility] 02-29-2020 influenza virus vaccine, unspecified formulation Arpita GARDNER Work Phone: [facility] 02-07-2020 influenza, injectable, quadrivalent, contains preservative Patient Objection Urban Max Other [facility] Other NEGATED: Highlighted row has not occurred!02-07-2020 influenza, injectable, quadrivalent, contains preservative Patient Objection Georgie Disla Other [facility] Other Payers Date Payer Category Payer Self-pay [id number] [id number] 2023 Medicaid [facility] MEDIC A[facility] MEDICAID [place] [id number] 2023-Present [address] [place] [address] [id number] 2023 Private Health Insurance [facility] MEDICAID [id number] 2022 Medicaid [id number] [address] HEALTH DESIGN PLUS [id number] 2022- [address] [place] [address] [id number] 2022 Unknown [id number] 1994 Unknown [id number] [id number]. 593 1994 Unknown [id number] [id number]. 1259 1994 Unknown [id number] 2.16.840.1.152274.3.579.2. 1259 1994 Unknown [id number] 2.16.840.1.823490.3.579.2. 1259 1994 Unknown [id number] 2.16.840.1.383960.3.579.2. 1259 1994 Unknown [id number] 2.16.840.1.397441.3.579.2. 1259 1994 Unknown [id number] 2.16.840.1.770348.3.579.2. 1259 1994 Unknown [id number] 2.16.840.1.328044.3.579.2. 1259 1994 Unknown [id number] 2.16.840.1.161322.3.579.2. 1259 1994 Unknown [id number] 2.16.840.1.612938.3.579.2. 1259 1994 Unknown [id number] 2.16.840.1.076672.3.579.2. 1259 1994 Unknown [id number] 2.16.840.1.919494.3.579.2. 1259 1959 Unknown [id number] Unknown [id number] [id number]. 531 Social History Date Type Detail Facility Unknown if ever smoked [facility] Other Start: 12-03-2022 End: 10-15-2023 Sex Assigned At [facility] Other Start: 02-23-2018 End: 12-01-2022 Tobacco smoking status WIIS Never smoked tobacco [facility] Start: 07-08-2023 End: 10-15-2023 Alcohol intake Current drinker of alcohol (finding) [facility] Start: 12-03-2022 End: 10-15-2023 History of Social function [facility] Start: 12-01-2022 Alcohol Comment occasional [facility] Start: 11-22-2022 [facility] Start: 1995 Sex Assigned At Not on file [facility] Start: 1995 Sex Assigned At Female F [facility] Clinical Notes 03-05-2021 to 07-08-2023 KENDRA [...] of: KENDRA Palencia documented in this encounter [facility] 08-21-2022 Evaluation note Encounter Date Diagnosis Assessment Notes Jul, Acute non-recurrent frontal sinusitis (ICD-10 - J01.10) [facility] Other 03-14-2023 Evaluation note* Encounter Date Diagnosis Assessment Notes Treatment Notes Treatment Clinical Notes Jul, Dysuria (ICD-10 - R30.0) [facility] Other 11-01-2022 Evaluation note* Encounter Date Diagnosis Assessment Notes Treatment Notes Treatment Clinical Notes Mar, Anxiety (ICD-10 - F41.9) [facility] Other 10-07-2022 Evaluation note* Encounter Date Diagnosis Assessment Notes Treatment Notes Treatment Clinical Notes Feb, Encntr for general adult medical exam w/o abnormal findings (ICD-10 - Z00.00) Feb, Other No change today...Continue as is...FU 6 months.... [facility] Other 09-21-2022 Evaluation note* Encounter Date Diagnosis Assessment Notes Treatment Notes Treatment Clinical Notes Jan, Contact with and (suspected) exposure to other viral communicable diseases (ICD-10 - Z20.828) [facility] Other 09-19-2022 Evaluation note* Encounter Date Diagnosis Assessment Notes Treatment Notes Treatment Clinical Notes Jan, Contact with and (suspected) exposure to other viral communicable diseases (ICD-10 - Z20.828) [facility] Other 08-26-2022 Evaluation note* Encounter Date Diagnosis Assessment Notes Treatment Notes Treatment Clinical Notes Dec, Anxiety (ICD-10 - F41.9) E Rx sent. Lengthy discussion with patient that I think we need to try something than just a straight SSRI. We will see patient back in review. We talked about potential side effects as well as outcomes. She will call with any concerns. [facility] Other 08-20-2022 Evaluation note* Encounter Date Diagnosis Assessment Notes Treatment Notes Treatment Clinical Notes Dec, Contact with and (suspected) exposure to other viral communicable diseases (ICD-10 - Z20.828) [facility] Other 10-11-2021 Evaluation note* Encounter Date Diagnosis Assessment Notes Treatment Notes Treatment Clinical Notes Feb, Encntr for general adult medical exam w/o abnormal findings (ICD-10 - Z00.00) Feb, Other No change today...Continue as is...FU PRN/Yearly... [facility] Other Evaluation noteNo [employer] Other Evaluation note* Diagnosis Third trimester state, incidental documented in this encounter [facility] Work Phone: History general Narrative - Reported* Type Description Date Medical History Hx of MRSA Medical History anxiety Surgical History tonsillectomy and adenoidectomy 2012 Surgical History c-sections 2009 and 2017 Hospitalization History C Sections [facility] Other Summary Purpose Family History No Family History Records FoundNo Family History Records FoundNo Family History Records Found Advance Directives Advance Directive Response Recorded Date/ Time Advance Directives No April 03, 2018 12:04pm Chief Complaint and Reason for Visit Chief [place] [facility] [place] Additional Source Comments INFORMATION SOURCE (unrecogn ized section and content) DATE CREATED AUTHOR 12/19/2020 [facility] DATE CREATED AUTHOR AUTHOR'S ORGANIZ ATION 09/22/2023 [facility] DATE CREATED AUTHOR AUTHOR'S ORGANIZ ATION 01/15/2024 [facility] EPIC REASON FOR VISIT (unrecogniz ed section and content) Reason Comments Routine Visit Care Teams (unrecognized sec tion and content) [employer] Relationship Specialty Start Date End Date Urban Santana MD [address] [place] [phone] PCP - General Family Medicine 11/18/22 Team [...] September 18, 2023 End: September 18, 2023 [employer] Relationship Specialty Start Date End Date Urban Santana MD [address] [phone] PCP - General Family Medicine 11/18/22 [employer] Relationship Specialty Start Date End Date Urban Santana MD [address] [phone] PCP - General Family Medicine 11/18/22 Goals [...] BE BASED ON THE PRIMARY CLINICAL RECORDS. [facility] [employer] provides no warranty or guarantee of the accuracy or completeness of information in this document.
[2024-04-15 18:41] LABS: HCG Quantitative 62173 mIU/mL
== END 2024-04-15 16:44 | disposition home or self-care (01) ==
PROVIDERS: PCP Family Medicine; Visit Provider Obstetrics & Gynecology
DX: O43.219 Placenta accreta, unspecified trimester (principal); O46.90 Antepartum hemorrhage, unspecified, unspecified trimester; N93.9 Abnormal uterine and vaginal bleeding, unspecified; N92.6 Irregular menstruation, unspecified
CPT/HCPCS: 36415; 84702

== ENCOUNTER 2024-04-17 07:16 | Outpatient (RCR) | payer OTHER, SELFPAY ==
[2024-04-17 08:15] LABS: HCG Quantitative 73402 mIU/mL
== END 2024-05-25 23:59 | disposition home or self-care (01) ==
LOC: LAB 07:16
PROVIDERS: PCP Family Medicine; Visit Provider Obstetrics & Gynecology
DX: O43.219 Placenta accreta, unspecified trimester (principal); O46.90 Antepartum hemorrhage, unspecified, unspecified trimester; N93.9 Abnormal uterine and vaginal bleeding, unspecified; N92.6 Irregular menstruation, unspecified
CPT/HCPCS: 36415; 84702

== ENCOUNTER 2024-04-18 08:45 | Emergency (ER) | payer OTHER, SELFPAY ==
[2024-04-18 08:49] VITALS: BP 164/90; PULSE 84; TEMP 36.7; O2SAT 100; BMI 34.7
--- NOTE | 2024-04-18 09:00 | ED.PREGNANC1 ---
HPI - General Chief complaint: Urogenital-Female Stated complaint: SOME BLEEDING CONCERNS 7 WEEKS Time Seen by Provider: 04/18/24 08:54 Source: patient Mode of arrival: walk-in History of Present Illness HPI Narrative: 29-year-old presents to the emergency department for vaginal bleeding. She states she is about 7 weeks . The bleeding first started 3 days ago and then it stopped. She had some light bleeding last night and then some heavier bleeding today. She has had some mild cramping but no significant abdominal pain. She states that this is her fourth and nothing like this has ever happened before. Related Data Home Medications ?Medication ?Instructions ?Recorded ?Confirmed ferrous sulfate 325 mg (65 mg 325 mg PO DAILY 06/26/23 07/03/23 iron) tablet (Feosol) magnesium 200 mg tablet 400 mg PO DAILY 06/26/23 07/03/23 vits,calcium 21-iron fum 1 tab PO DAILY 06/26/23 07/03/23 14 mg iron-folic acid 400 mcg tablet ( Complete) Previous Rx's ?Medication ?Instructions ?Recorded ibuprofen 800 mg tablet 800 mg PO Q8H PRN pain 14 days #40 08/06/23 tabs oxycodone-acetaminophen 5 mg-325 1 tab PO Q6H PRN pain 7 days #28 08/06/23 mg tablet (Percocet) tabs Allergies Allergy/AdvReac Type Severity Reaction Status Date / Time No Known Drug Allergies Allergy Verified 06/26/23 16:17 Review of Systems ROS Narrative A ten point review of systems is negative except as noted above. PFSH PFSH Social History Highest level of school completed/degree received: some college, no degree Little interest or pleasure in doing things: not at all Feeling down, depressed, or hopeless: not at all Exam Narrative Exam Narrative: Nurses note and vital signs reviewed and patient is not hypoxic. General: The patient appears in no apparent distress. Patient is resting comfortably on cart. Skin: Warm, dry, no pallor noted. There is no rash noted. Head: Normocephalic, atraumatic Eye: Normal conjunctiva, no drainage Ears, Nose, Mouth, and Throat: oral mucosa is moist. Nares patent. Cardiovascular: Regular Rate and Rhythm Respiratory: Patient is in no distress, no accessory muscle use, lungs are clear to auscultation, no wheezing, rales or rhonchi Back: non-tender GI: Soft and nontender Musculoskeletal: The patient has no evidence of calf tenderness, no pitting edema, symmetrical pulses noted bilaterally Neurological: A&O, normal speech Psychiatric: Cooperative Constitutional Vital Signs, click to edit/add: Last Vital Signs Temp 98.0 F 04/18/24 08:49 Pulse 84 04/18/24 08:49 Resp 20 04/18/24 08:49 BP 164/90 H 04/18/24 08:49 Pulse Ox 100 04/18/24 08:49 Course Vital Signs Vital signs: Vital Signs Temperature 98.0 F 04/18/24 08:49 Pulse Rate 84 04/18/24 08:49 Respiratory Rate 20 04/18/24 08:49 Blood Pressure 164/90 H 04/18/24 08:49 Pulse Oximetry 100 04/18/24 08:49 Temperature 98.0 F 04/18/24 08:49 Pulse Rate 84 04/18/24 08:49 Respiratory Rate 20 04/18/24 08:49 Blood Pressure 164/90 H 04/18/24 08:49 Pulse Oximetry 100 04/18/24 08:49 MDM - OB/Uterine Contractions MDM Narrative Medical decision making narrative: Ultrasound shows live IUP and perigestational hemorrhage. Findings are discussed with the patient and she will follow-up with her [employer] physician. Treatment diagnosis and follow-up were discussed with the patient. Differential Diagnosis Differential diagnosis: Likely other (Miscarriage, threatened miscarriage) Lab Data Attestation: I reviewed the patient's lab results. Labs: Lab Results 04/18/24 Range/Units 09:06 WBC 7.5 (4.0-11.0) 10^3/uL RBC 4.27 (4.20-5.40) 10^6/uL Hgb 12.4 (12.0-16.0) g/dL Hct 37.1 (36.0-48.0) % MCV 86.9 (81.0-99.0) fL MCH 29.0 (26.7-34.0) pg MCHC 33.4 (29.9-35.2) g/dL RDW 12.9 (11.0-15.0) % Plt Count 279 (150-450) 10^3/uL MPV 9.2 L (9.5-13.5) fL Neut % (Auto) 51.8 (43.0-75.0) % Lymph % (Auto) 40.8 (20.5-60.0) % [place] % (Auto) 5.2 (1.7-12.0) % Eos % (Auto) 1.6 (0.9-7.0) % Baso % (Auto) 0.5 (0.2-2.0) % Neut # (Auto) 3.9 (1.4-6.5) 10^3/uL Lymph # (Auto) 3.1 (1.2-3.8) 10^3/uL [place] # (Auto) 0.4 (0.3-0.8) 10^3/uL Eos # (Auto) 0.1 (0.0-0.7) 10^3/uL Baso # (Auto) 0.0 (0.0-0.1) 10^3/uL Abs Immat Gran (auto) 0.01 (0.00-0.03) 10^3/uL Imm/Tot Granulo (auto) 0.1 (0.0-0.5) % Sodium 138 (136-145) mmol/L Potassium 3.8 (3.5-5.1) mmol/L Chloride 102 (98-107) mmol/L Carbon Dioxide 25.0 (21.0-32.0) mmol/L Anion Gap 14.8 BUN 12.0 (7.0-18.0) mg/dL Creatinine 0.66 (0.55-1.02) mg/dL Est GFR ( Amer) >60 (>=60 mL/min/1.73m^2) Est GFR (Non-Af Amer) >60 (>=60 mL/min/1.73m^2) BUN/Creatinine Ratio 18.2 Glucose 92 (74-106) mg/dL Calcium 8.6 (8.5-10.1) mg/dL HCG, Quant 37591 mIU/mL Imaging Data Pelvic ultrasound: Radiologist's impression: ITS Impressions Transvaginal US 04/18/24 10:13 IMPRESSION: 1. Single living intrauterine , sonographic gestational age 7 weeks 0 days +/- 4 days 2. Sonographic TONJA 12/05/2024 3. The intrauterine is low in position in the lower uterine segment. There is a large complex perigestational hemorrhage along the superior aspect of the gestational sac measuring up to 5.1 cm. 4. Mild complex 3.3 cm maternal right ovarian corpus luteal cyst 5. Normal maternal left ovarian sonographic morphology. 6. No significant maternal pelvic free fluid. Electronically authenticated by: PATRICK GROSS Date: 04/18/2024 12:24 Discharge Plan Discharge Chief Complaint: Urogenital-Female Clinical Impression: Threatened miscarriage Patient Disposition: Home, Self-Care Time of Disposition Decision: 12:33 Condition: Good Mode of Transportation: Private Vehicle Prescriptions / Home Meds: No Action ibuprofen 800 mg tablet 800 mg PO Q8H PRN (Reason: pain) 14 Days Qty: 40 0RF oxycodone-acetaminophen [Percocet] 5-325 mg tablet 1 tab PO Q6H PRN (Reason: pain) 7 Days Qty: 28 0RF Complete 14 mg iron- 400 mcg tablet 1 tab PO DAILY ferrous sulfate [Feosol] 325 mg (65 mg iron) tablet 325 mg PO DAILY magnesium 200 mg tablet 400 mg PO DAILY Print Language: St Helenian Instructions: Threatened Miscarriage (ED) Additional Instructions: Follow-up with Dr. Godinez Referrals: LAXMI MONGE [Primary Care Provider] - 1 week
[2024-04-18 09:13] LABS: Basophils Percent Auto 0.5 % (0.2-2.0); Eosinophils Absolute Auto 0.1 10^3/uL (0.0-0.7); Eosinophils Percent Auto 1.6 % (0.9-7.0); Hematocrit 37.1 % (36.0-48.0); Hemoglobin 12.4 g/dL (12.0-16.0); Immature Granulocytes Abs Auto 0.01 10^3/uL (0.00-0.03); Immature Granulocytes Pct Auto 0.1 % (0.0-0.5); Lymphocytes Absolute Auto 3.1 10^3/uL (1.2-3.8); Lymphocytes Percent Auto 40.8 % (20.5-60.0); Mean Corpuscular HGB Conc 33.4 g/dL (29.9-35.2); Mean Corpuscular Volume 86.9 fL (81.0-99.0); Mean Platelet Volume 9.2 fL (9.5-13.5); Monocytes Absolute Auto 0.4 10^3/uL (0.3-0.8); Monocytes Percent Auto 5.2 % (1.7-12.0); Neutrophils Absolute Auto 3.9 10^3/uL (1.4-6.5); Neutrophils Percent Auto 51.8 % (43.0-75.0); Platelet Count 279 10^3/uL (150-450); Red Blood Count 4.27 10^6/uL (4.20-5.40); Red Cell Distribution Width 12.9 % (11.0-15.0); White Blood Count 7.5 10^3/uL (4.0-11.0)
--- OUTSIDE RECORDS SUMMARY | 2024-04-18 09:22 | XMS_ITS | CCD ---
Author Organization [facility] Care Team Providers Care Fitness Leader Name Role Phone DR SURY CENTENO Primary [...] OR CHEW. 30 capsule 11 01/20/2023 Active ondansetron 4 mg disintegrating oral tablet (1 source) Serotonin-3 Receptor Antagonist Start: 2023 End: 2023 take 1 tablet by mouth every six hours for nausea ondansetron ODT (Zofran-ODT) 4 MG disintegrating tablet Indications: Nausea and vomiting in Take 1 tablet (4 mg) by mouth every 6 (six) hours if needed for nausea or vomiting 30 tablet 2 04/05/2024 05/05/2024 Active phentermine hydrochloride 37.5 mg oral tablet (9 sources) Sympathomimetic Amine Anorectic Start: 2023 End: 2023 take 1 tablet by mouth before mealtime phentermine (Adipex-P) 37.5 MG tablet Indications: Encounter for weight management Take 1 tablet (37.5 mg) by mouth in the morning. Take before meals. 90 tablet 01/13/2024 Active polysaccharide iron complex 391 mg oral capsule (2 sources) Start: 2023 End: 2023 take 1 capsule by mouth in the morning iron polysaccharides (ProFe) 391.3 (180 Fe) MG capsule Indications: Third trimester Take 1 capsule (391.3 mg) by mouth in the morning. 30 capsule 3 06/11/2023 10/09/2023 Active vitamin (Prenatabs Rx) 29-1 MG tablet (5 sources) Start: 2023 take 1 tablet by [...] Date Documented Da te Episodic/Chronic Anxiety disorders (18 sources) Anxiety; Translations: [Anxiety disorder, unspecified] Onset: 01-18-2022 Resolved: 01-18-2022 Chronic E Codes: Cut/pierceb (1 source) Contact with sharp glass, initial encounter; Translations: [CONTACT W/SHARP GLASS INITIAL ENC] Onset: 12-19-2020 Episodic Immunizations and screening for infectious disease (14 sources) Encounter for immunization; Translations: [Contact with and (suspected) exposure to other viral communicable diseases] Onset: 12-19-2020 Resolved: 02-11-2022 Episodic Mood disorders (5 sources) Depressive disorder; Translations: [Depression] Onset: 11-18-2022 11-18-2022 Chronic Open wounds of extremities (4 sources) Laceration without foreign body of right forearm, initial encounter; Translations: [LACERATION W/O FB RT FORARM INITIAL] Onset: 12-16-2020 Episodic Other eye disorders (5 sources) Bilateral vitreous floaters; Translations: [Other vitreous opacities, bilateral] Onset: 11-18-2022 11-18-2022 Chronic Other female genital disorders (5 sources) Abnormal uterine bleeding; Translations: [Abnormal uterine and vaginal bleeding, unspecified] Onset: 11-18-2022 11-18-2022 Chronic Other nutritional; endocrine; and metabolic disorders (5 sources) Obesity; Translations: [Obesity, unspecified] Onset: 11-18-2022 [...] te Episodic/Chronic Genitourinary symptoms and ill-defined conditions (6 sources) Dysuria; Translations: [Malodorous urine] Onset: 11-18-2022 Episodic Joint disorders and dislocations; trauma-related (5 sources) Recurrent dislocation of shoulder region; Translations: [Recurrent dislocation, unspecified shoulder] Onset: 02-21-2009 12-03-2022 Episodic Other screening for suspected conditions (not mental disorders or infectious disease) (5 sources) Liver function tests abnormal; Translations: [Abnormal results of liver function studies] Onset: 11-18-2022 11-18-2022 Episodic Results Test Name Value Interpretation Reference Range [facility] PREG QUANT HCGon 024 HCG QUANTITATIVE 76231 mIU/mL [facility] Comment on above: 5-50 0.2-1 WEEK 50-500 1-2 WEEKS 100-5,000 2-3 WEEKS 500-10,000 3-4 WEEKS 1,000-50,000 4-5 WEEKS 10,000-100,000 5-6 WEEKS 15,000-200,000 6-8 WEEKS 10,000-100,000 2-3 MONTHS [facility] PREG QUANT HCGon 024 HCG QUANTITATIVE 6694 mIU/mL [facility] Comment on above: 5-50 0.2-1 WEEK 50-500 1-2 WEEKS 100-5,000 2-3 WEEKS 500-10,000 3-4 WEEKS 1,000-50,000 4-5 WEEKS 10,000-100,000 5-6 WEEKS 15,000-200,000 6-8 WEEKS 10,000-100,000 2-3 MONTHS [facility] PREG QUANT HCGon 024 HCG QUANTITATIVE 3710 mIU/mL [facility] Comment on above: 5-50 0.2-1 WEEK 50-500 1-2 WEEKS 100-5,000 2-3 WEEKS 500-10,000 3-4 WEEKS 1,000-50,000 4-5 WEEKS 10,000-100,000 5-6 WEEKS 15,000-200,000 6-8 WEEKS 10,000-100,000 2-3 MONTHS [facility] Alanine aminotransferase [En zymatic activity/volume] in Serum or PlasmaOrdered By: Georgie Calvo on 09-18-2023 ALT [Catalytic activity/Vol] 23 U/L 7-52 [facility] Albumin [Mass/volume] in Ser um or Plasma by Bromocresol green (BCG) dye binding methoOrdered By: Georgie Calvo on 09-18-2023 Albumin BCG dye [Mass/Vol] 4.7 g/dL 3.5-5.7 [facility] Alkaline phosphatase [Enzyma tic activity/volume] in Serum or PlasmaOrdered By: Georgie Calvo on 09-18-2023 ALP [Catalytic activity/Vol] 72 U/L 34-104 [facility] Aspartate aminotransferase [ Enzymatic activity/volume] in Serum or PlasmaOrdered By: Georgie Calvo on 09-18-2023 AST [Catalytic activity/Vol] 26 U/L 13-39 [facility] Bilirubin.total [Mass/volume ] in Serum or PlasmaOrdered By: Georgie Calvo on 09-18-2023 Bilirubin [Mass/Vol] 0.7 mg/dL 0.3-1.0 [facility] CMP with reflex to A1Con Albumin [Mass/Vol] 4.7 g/dL Normal 3.5-5.7 [facility] Comment on above: Performed By: #### N ICOTINE QUAL #### [facility] , #### CMP wRFX A1C, EBS LIPID #### [facility] [address] [place] [address] [place] Albumin/Globulin [Mass ratio] 2.0 {ratio} Normal [facility] Comment on above: Performed By: #### N ICOTINE QUAL #### [facility] , #### CMP wRFX A1C, EBS LIPID #### [facility] [address] [place] [id number] [place] ALP [Catalytic activity/Vol] 72 U/L Normal 34-104 [facility] Comment on above: Performed By: #### N ICOTINE QUAL #### [facility] , #### CMP wRFX A1C, EBS LIPID #### [facility] [address] [place] [id number] [place] ALT [Catalytic activity/Vol] 23 U/L Normal 7-52 [facility] Comment on above: Performed By: #### N ICOTINE QUAL #### [facility] , #### CMP wRFX A1C, EBS LIPID #### [address] Anion gap [Moles/Vol] 12.5 mmol/L Normal 6.0-15.0 [facility] Comment on above: Performed By: #### N ICOTINE QUAL #### [facility] , #### CMP wRFX A1C, EBS LIPID #### [address] AST [Catalytic activity/Vol] 26 U/L Normal 13-39 [facility] Comment on above: Performed By: #### N ICOTINE QUAL #### [facility] , #### CMP wRFX A1C, EBS LIPID #### [place] [address] [place] Bilirubin [Mass/Vol] 0.7 mg/dL Normal 0.3-1.0 [facility] Comment on above: Performed By: #### N ICOTINE QUAL #### [facility] , #### CMP wRFX A1C, EBS LIPID #### [place] [address] [place] Calcium [Mass/Vol] 10.1 mg/dL Normal 8.6-10.3 [facility] Comment on above: Performed By: #### N ICOTINE QUAL #### [facility] , #### CMP wRFX A1C, EBS LIPID #### [facility] [address] [place] [address] [place] Chloride [Moles/Vol] 101 mmol/L Normal 98-107 [facility] Comment on above: Performed By: #### N ICOTINE QUAL #### [facility] , #### CMP wRFX A1C, EBS LIPID #### [address] CO2 [Moles/Vol] 28.5 mmol/L Normal 21.0-31.0 [facility] Comment on above: Performed By: #### N ICOTINE QUAL #### [facility] , #### CMP wRFX A1C, EBS LIPID #### [address] Creatinine [Mass/Vol] 0.79 mg/dL Normal 0.60-1.20 [facility] Comment on above: Performed By: #### N ICOTINE QUAL #### [facility] , #### CMP wRFX A1C, EBS LIPID #### [place] [address] [place] GFR/1.73 sq M.predicted MDRD (S/P/Bld) [Vol rate/Area] mL/min/{1.73_m2} Normal [facility] Comment on above: Performed By: #### N ICOTINE QUAL #### [facility] , #### CMP wRFX A1C, EBS LIPID #### [address] Globulin (S) [Mass/Vol] 2.4 g/dL Normal [facility] Comment on above: Performed By: #### N ICOTINE QUAL #### [facility] , #### CMP wRFX A1C, EBS LIPID #### [place] [address] [place] Glucose [Mass/Vol] 78 mg/dL Normal 70-100 [facility] Comment on above: Performed By: #### N ICOTINE QUAL #### [facility] , #### CMP wRFX A1C, EBS LIPID #### [facility] [address] [place] [address] [place] Potassium [Moles/Vol] 4.0 mmol/L Normal 3.5-5.1 [facility] Comment on above: Performed By: #### N ICOTINE QUAL #### [facility] , #### CMP wRFX A1C, EBS LIPID #### [facility] [address] Protein [Mass/Vol] 7.1 g/dL Normal 6.4-8.9 [facility] Comment on above: Performed By: #### N ICOTINE QUAL #### [facility] , #### CMP wRFX A1C, EBS LIPID #### [facility] [address] Sodium [Moles/Vol] 138 mmol/L Normal 136-145 [facility] Comment on above: Performed By: #### N ICOTINE QUAL #### [facility] , #### CMP wRFX A1C, EBS LIPID #### [facility] [address] [place] [address] Urea nitrogen [Mass/Vol] 14 mg/dL Normal 7-25 [facility] Comment on above: Performed By: #### N ICOTINE QUAL #### [facility] , #### CMP wRFX A1C, EBS LIPID #### [address] Calcium [Mass/volume] in Ser um or PlasmaOrdered By: Georgie Calvo on 09-18-2023 Calcium [Mass/Vol] 10.1 mg/dL 8.6-10.3 [facility] Carbon dioxide, total [Moles /volume] in Serum or PlasmaOrdered By: Georgie Calvo on 09-18-2023 CO2 [Moles/Vol] 28.5 mmol/L 21.0-31.0 [facility] Chloride [Moles/volume] in S fabiana or PlasmaOrdered By: Georgie Calvo on 09-18-2023 Chloride [Moles/Vol] 101 mmol/L 98-107 [facility] Cholesterol [Mass/volume] in Serum or PlasmaOrdered By: Georgie Calvo on 09-18-2023 Cholesterol [Mass/Vol] 239 mg/dL 140-200 [facility] Comment on above: Chol less than 200 m g/dl low riskChol 201-239 mg/dl borderline riskChol 240 mg/dl and greater high risk Cholesterol in LDL Calc [Mas s/Vol]Ordered By: Georgie Calvo on 09-18-2023 Cholesterol in LDL [Mass/Vol] 154 mg/dL 0-100 [facility] Comment on above: LDL ATP III CLASSIFI CATIONLDL less than 100 mg/dL OptimalLDL 100-129 mg/dL Near or above optimalLDL 130-159 mg/dL Borderline highLDL 160-189 mg/dL HighLDL greater than 189 mg/dL Very high Cholesterol in VLDL Calc [Ma ss/Vol]Ordered By: Georgie Calvo on 09-18-2023 Cholesterol in VLDL [Mass/Vol] 14 mg/dL [facility] Creatinine [Mass/volume] in Serum or PlasmaOrdered By: Georgie Calvo on 09-18-2023 Creatinine [Mass/Vol] 0.79 mg/dL 0.60-1.20 [facility] Globulin Calc (S) [Mass/Vol] Ordered By: Georgie Calvo on 09-18-2023 Globulin (S) [Mass/Vol] 2.4 g/dL [facility] Glucose [Mass/volume] in Ser um or PlasmaOrdered By: Georgie Calvo on 09-18-2023 Glucose [Mass/Vol] 78 mg/dL 70-100 [facility] Lipid Profileon 09-18-2023 Cholesterol [Mass/Vol] 239 mg/dL High 140-200 [facility] Comment on above: Result Comment: Chol less than 200 mg/dl low risk Chol 201-239 mg/dl borderline risk Chol 240 mg/dl and greater high risk Performed By: #### N ICOTINE QUAL #### [facility] , #### CMP wRFX A1C, EBS LIPID #### [facility] [address] [place] [address] Cholesterol in HDL [Mass/Vol] 70 mg/dL Normal 23-92 [facility] Comment on above: Result Comment: HDL CHOL ATP-III CLASSIFICATION Cardiovascular Risk HDL > or equal to 60 mg/dL LOW HDL < 40 mg/dL HIGH Performed By: #### N ICOTINE QUAL #### [facility] , #### CMP wRFX A1C, EBS LIPID #### [address] Cholesterol.total/[place] sterol in HDL [Mass ratio] 3.4 {ratio} Normal <5.0 [facility] Comment on above: Result Comment: PERF ORMED BY: [place] [address] PATHOLOGIST CASUALTY INSURANCE CLAIM ADJUSTER ROBERT WEBB M.D. Performed By: #### N ICOTINE QUAL #### [facility] , #### CMP wRFX A1C, EBS LIPID #### [address] LDL Cholesterol,Calculated 154 mg/dL High 0-100 [facility] Comment on above: Result Comment: LDL ATP III CLASSIFICATION LDL less than 100 mg/dL Optimal LDL 100-129 mg/dL Near or above optimal LDL 130-159 mg/dL Borderline high LDL 160-189 mg/dL High LDL greater than 189 mg/dL Very high Performed By: #### N ICOTINE QUAL #### [facility] , #### CMP wRFX A1C, EBS LIPID #### [address] Triglyceride w/Reflex 73 mg/dL Normal 0-149 [facility] Comment on above: Result Comment: TRIG ATP III CLASSIFICATION TRIG less than 150 mg/dL Normal TRIG 150-199 mg/dL Borderline high TRIG 200-500 mg/dL High TRIG greater than 500 mg/dL Very high Standard traceable to the Center for Disease Conrtrol and Prevention (CDC) test method. Performed By: #### N ICOTINE QUAL #### [facility] , #### CMP wRFX A1C, EBS LIPID #### [address] VLDL CHOLESTEROL 14 mg/dL Normal [facility] Comment on above: Performed By: #### N ICOTINE QUAL #### [facility] , #### CMP wRFX A1C, EBS LIPID #### [facility] [address] [place] [address] [place] Nicotine Metabolite, Qualon 09-18-2023 Nicotine Metabolite Negative Normal Cutoff=25 [facility] Comment on above: Result Comment: Perf ormed at: [facility] - [facility] [address] [id number] Associate Music Professor: Josh Ortez MD, Phone: [phone] PERFORMED BY: [place] [address] PATHOLOGIST CASUALTY INSURANCE CLAIM ADJUSTER ROBERT WEBB M.D. Performed By: #### N ICOTINE QUAL #### [facility] , #### CMP wRFX A1C, EBS LIPID #### [facility] [address] No Panel InformationOrdered By: Georgie Calvo on 09-18-2023 Estimated GFR (CKD-EPI) > 60.0 mL/Min [facility] Creatinine Clearance (Chem N/A [facility] Potassium [Moles/volume] in Serum or PlasmaOrdered By: Georgie Calvo on 09-18-2023 Potassium [Moles/Vol] 4.0 mmol/L 3.5-5.1 [facility] Protein [Mass/volume] in Ser um or PlasmaOrdered By: Georgie Calvo on 09-18-2023 Protein [Mass/Vol] 7.1 g/dL 6.4-8.9 [facility] Serum or plasma albumin/glob ulin mass ratioOrdered By: Georgie Calvo on 09-18-2023 Albumin/Globulin [Mass ratio] 2.0 {ratio} [facility] Serum or plasma anion gap de terminationOrdered By: Georgie Calvo on 09-18-2023 Anion gap [Moles/Vol] 12.5 mmol/L 6.0-15.0 [facility] Serum or plasma high density lipoprotein (HDL) cholesterol measurementOrdered By: Georgie Calvo on 09-18-2023 Cholesterol in HDL [Mass/Vol] 70 mg/dL 23- [facility] Comment on above: HDL CHOL ATP-III CLA SSIFICATION Cardiovascular RiskHDL > or equal to 60 mg/dL LOWHDL < 40 mg/dL HIGH Serum or plasma total choles terol/high density lipoprotein (HDL) cholesterol mass ratOrdered By: Georgie Calvo on 09-18-2023 Cholesterol.total/[place] sterol in HDL [Mass ratio] 3.4 {ratio} <5.0 [facility] Sodium [Moles/volume] in Ser um or PlasmaOrdered By: Georgie Calvo on 09-18-2023 Sodium [Moles/Vol] 138 mmol/L 136-145 [facility] Triglyceride [Mass/volume] i n Serum or PlasmaOrdered By: Georgie Calvo on 09-18-2023 Triglyceride [Mass/Vol] 73 mg/dL 0-149 [facility] Comment on above: TRIG ATP III CLASSIF ICATIONTRIG less than 150 mg/dL NormalTRIG 150-199 mg/dL Borderline highTRIG 200-500 mg/dL High TRIG greater than 500 mg/dL Very highStandard traceable to the Center for Disease Conrtrol and Prevention (CDC) test method. Urea nitrogen [Mass/volume] in Serum or PlasmaOrdered By: Georgie Calvo on 09-18-2023 Urea nitrogen [Mass/Vol] 14 mg/dL 7- [facility] Basophils Auto (Bld) [#/Vol] on 08-05-2023 Basophils (Bld) [#/Vol] 0.0 10 3/uL 0.0-0.1 [facility] Basophils/100 WBC Auto (Bld) on 08-05-2023 Basophils/100 WBC (Bld) 0.2 % 0.2-2.0 [facility] Eosinophils/100 WBC Auto (Bl d)on 08-05-2023 Eosinophils/100 WBC (Bld) 0.1 % 0.9-7.0 [facility] Erythrocyte distribution wid th Auto (RBC) [Ratio]on 08-05-2023 Erythrocyte distribution width (RBC) [Ratio] 13.8 % 11.0-15.0 [facility] Hematocrit Auto (Bld) [Volum e fraction]on 08-05-2023 Hematocrit (Bld) [Volume fraction] 33.5 % 36.0-48.0 [facility] Hemoglobin [Mass/volume] in Bloodon 08-05-2023 Hemoglobin (Bld) [Mass/Vol] 10.7 g/dL 12.0-16.0 [facility] - Hematology and Cell countson 08-05-2023 Immature granulocytes/100 WBC (Bld) 0.5 % 0.0-0.5 [facility] Leukocytes [#/volume] correc oneal for nucleated erythrocytes in Blood by Automated counon 08-05-2023 WBC corrected for nucl RBC Auto (Bld) [#/Vol] 19.3 10 3/uL 4.0-11.0 [facility] Lymphocytes Auto (Bld) [#/Vo l]on 08-05-2023 Lymphocytes (Bld) [#/Vol] 1.7 10 3/uL 1.2-3.8 [facility] Lymphocytes/100 WBC Auto (Bl d)on 08-05-2023 Lymphocytes/100 WBC (Bld) 9.0 % 20.5-60.0 [facility] MCH Auto (RBC) [Entitic mass ]on 08-05-2023 MCH (RBC) [Entitic mass] 27.9 pg 26.7-34.0 [facility] MCHC Auto (RBC) [Mass/Vol]on 08-05-2023 MCHC (RBC) [Mass/Vol] 31.9 g/dL 29.9-35.2 [facility] MCV Auto (RBC) [Entitic vol] on 08-05-2023 MCV (RBC) [Entitic vol] 87.2 fL 81.0-99.0 [facility] Monocytes Auto (Bld) [#/Vol] on 08-05-2023 Monocytes (Bld) [#/Vol] 0.5 10 3/uL 0.3-0.8 [facility] Monocytes/100 WBC Auto (Bld) on 08-05-2023 Monocytes/100 WBC (Bld) 2.8 % 1.7-12.0 [facility] Neutrophils Auto (Bld) [#/Vo l]on 08-05-2023 Neutrophils (Bld) [#/Vol] 16.9 10 3/uL 1.4-6.5 [facility] Neutrophils/100 WBC Auto (Bl d)on 08-05-2023 Neutrophils/100 WBC (Bld) 87.4 % 43.0-75.0 [facility] No Panel Informationon 08-04 Eosinophils # (Auto) 0.0 10 3/uL 0.0-0.7 [facility] Immature Granulocyte # (Auto) 0.09 10 3/uL 0.00-0.03 [facility] Platelet mean volume Auto (B ld) [Entitic vol]on 08-05-2023 Platelet mean volume (Bld) [Entitic vol] 10.4 fL 9.5-13.5 [facility] Platelets Auto (Bld) [#/Vol] on 08-05-2023 Platelets (Bld) [#/Vol] 199 10 3/uL 150-450 [facility] RBC Auto (Bld) [#/Vol]on RBC (Bld) [#/Vol] 3.84 10 6/uL 4.20-5.40 [facility] Basophils Auto (Bld) [#/Vol] on 08-04-2023 Basophils (Bld) [#/Vol] 0.0 10 3/uL 0.0-0.1 [facility] Basophils/100 WBC Auto (Bld) on 08-04-2023 Basophils/100 WBC (Bld) 0.2 % 0.2-2.0 [facility] Buprenorphine [Presence] in Urineon 08-04-2023 Buprenorphine Ql (U) Negative NEGATIVE [facility] Comment on above: DRUG CLASS TEST SYST EM CUT-OFF CONCENTRATIONS ARE ASFOLLOWS:AMP (Amphetamine): 500 ng/mLBAR (Barbiturates): 200 ng/mLBZO (Benzodiazepines): 150 ng/mLBUP (Buprenorphine): 10 ng/mLCOC (Cocaine): 150 ng/mLmAMP (Methamphetamine): 500 ng/mLMTD (Methadone): 200 ng/mLOPI (Opiates): 100 ng/mLOXY (Oxycodone): 100 ng/mLPCP (Phencyclidine): 25 ng/mLTHC (Cannabinoids): 50 ng/mLTCA (Trycyclic Antidepressants): 300 ng/mL Eosinophils/100 WBC Auto (Bl d)on 08-04-2023 Eosinophils/100 WBC (Bld) 0.4 % 0.9-7.0 [facility] Erythrocyte distribution wid th Auto (RBC) [Ratio]on 08-04-2023 Erythrocyte distribution width (RBC) [Ratio] 13.7 % 11.0-15.0 [facility] Hematocrit Auto (Bld) [Volum e fraction]on 08-04-2023 Hematocrit (Bld) [Volume fraction] 37.3 % 36.0-48.0 [facility] Hemoglobin [Mass/volume] in Bloodon 08-04-2023 Hemoglobin (Bld) [Mass/Vol] 12.1 g/dL 12.0-16.0 [facility] - Drug toxicology on 08-04-2023 Amphetamines Ql (U) Negative NEGATIVE [facility] Benzodiazepines Ql (U) Negative NEGATIVE [facility] Cocaine Ql (U) Negative NEGATIVE [facility] Opiates Ql (U) Negative NEGATIVE [facility] Phencyclidine Ql (U) Negative NEGATIVE [facility] - Hematology and Cell countson 08-04-2023 Immature granulocytes/100 WBC (Bld) 0.3 % 0.0-0.5 [facility] Leukocytes [#/volume] correc oneal for nucleated erythrocytes in Blood by Automated counon 08-04-2023 WBC corrected for nucl RBC Auto (Bld) [#/Vol] 11.9 10 3/uL 4.0-11.0 [facility] Lymphocytes Auto (Bld) [#/Vo l]on 08-04-2023 Lymphocytes (Bld) [#/Vol] 3.4 10 3/uL 1.2-3.8 [facility] Lymphocytes/100 WBC Auto (Bl d)on 08-04-2023 Lymphocytes/100 WBC (Bld) 28.8 % 20.5-60.0 [facility] MCH Auto (RBC) [Entitic mass ]on 08-04-2023 MCH (RBC) [Entitic mass] 27.8 pg 26.7-34.0 [facility] MCHC Auto (RBC) [Mass/Vol]on 08-04-2023 MCHC (RBC) [Mass/Vol] 32.4 g/dL 29.9-35.2 [facility] MCV Auto (RBC) [Entitic vol] on 08-04-2023 MCV (RBC) [Entitic vol] 85.6 fL 81.0-99.0 [facility] Methadone [Presence] in Urin e by Screen methodon 08-04-2023 Methadone Screen Ql (U) Negative NEGATIVE [facility] Monocytes Auto (Bld) [#/Vol] on 08-04-2023 Monocytes (Bld) [#/Vol] 0.5 10 3/uL 0.3-0.8 [facility] Monocytes/100 WBC Auto (Bld) on 08-04-2023 Monocytes/100 WBC (Bld) 4.6 % 1.7-12.0 [facility] Neutrophils Auto (Bld) [#/Vo l]on 08-04-2023 Neutrophils (Bld) [#/Vol] 7.8 10 3/uL 1.4-6.5 [facility] Neutrophils/100 WBC Auto (Bl d)on 08-04-2023 Neutrophils/100 WBC (Bld) 65.7 % 43.0-75.0 [facility] No Panel Informationon 08-03 Eosinophils # (Auto) 0.1 10 3/uL 0.0-0.7 [facility] Immature Granulocyte # (Auto) 0.04 10 3/uL 0.00-0.03 [facility] Urine Barbiturates Screen Negative NEGATIVE [facility] Urine Marijuana (THC) Screen Negative NEGATIVE [facility] Urine Methamphetamines Screen Negative NEGATIVE [facility] Platelet mean volume Auto (B ld) [Entitic vol]on 08-04-2023 Platelet mean volume (Bld) [Entitic vol] 10.0 fL 9.5-13.5 [facility] Platelets Auto (Bld) [#/Vol] on 08-04-2023 Platelets (Bld) [#/Vol] 228 10 3/uL 150-450 [facility] RBC Auto (Bld) [#/Vol]on RBC (Bld) [#/Vol] 4.36 10 6/uL 4.20-5.40 [facility] Urine tricyclic antidepressa nt measurementon 08-04-2023 Tricyclic antidepressants (U) [Mass/Vol] Negative NEGATIVE [facility] oxyCODONE+oxyMORphone [Prese nce] in Urine by Screen methodon 08-04-2023 oxyCODONE+oxyMORphone Screen Ql (U) Negative NEGATIVE [facility] Basophils Auto (Bld) [#/Vol] on 07-21-2023 Basophils (Bld) [#/Vol] 0.0 10 3/uL 0.0-0.1 [facility] Basophils/100 WBC Auto (Bld) on 07-21-2023 Basophils/100 WBC (Bld) 0.3 % 0.2-2.0 [facility] Eosinophils/100 WBC Auto (Bl d)on 07-21-2023 Eosinophils/100 WBC (Bld) 0.6 % 0.9-7.0 [facility] Erythrocyte distribution wid th Auto (RBC) [Ratio]on 07-21-2023 Erythrocyte distribution width (RBC) [Ratio] 13.4 % 11.0-15.0 [facility] Hematocrit Auto (Bld) [Volum e fraction]on 07-21-2023 Hematocrit (Bld) [Volume fraction] 38.1 % 36.0-48.0 [facility] Hemoglobin [Mass/volume] in Bloodon 07-21-2023 Hemoglobin (Bld) [Mass/Vol] 12.3 g/dL 12.0-16.0 [facility] - Hematology and Cell countson 07-21-2023 Immature granulocytes/100 WBC (Bld) 0.3 % 0.0-0.5 [facility] Leukocytes [#/volume] correc oneal for nucleated erythrocytes in Blood by Automated counon 07-21-2023 WBC corrected for nucl RBC Auto (Bld) [#/Vol] 10.7 10 3/uL 4.0-11.0 [facility] Lymphocytes Auto (Bld) [#/Vo l]on 07-21-2023 Lymphocytes (Bld) [#/Vol] 2.8 10 3/uL 1.2-3.8 [facility] Lymphocytes/100 WBC Auto (Bl d)on 07-21-2023 Lymphocytes/100 WBC (Bld) 25.8 % 20.5-60.0 [facility] MCH Auto (RBC) [Entitic mass ]on 07-21-2023 MCH (RBC) [Entitic mass] 27.9 pg 26.7-34.0 [facility] MCHC Auto (RBC) [Mass/Vol]on 07-21-2023 MCHC (RBC) [Mass/Vol] 32.3 g/dL 29.9-35.2 [facility] MCV Auto (RBC) [Entitic vol] on 07-21-2023 MCV (RBC) [Entitic vol] 86.4 fL 81.0-99.0 [facility] Monocytes Auto (Bld) [#/Vol] on 07-21-2023 Monocytes (Bld) [#/Vol] 0.4 10 3/uL 0.3-0.8 [facility] Monocytes/100 WBC Auto (Bld) on 07-21-2023 Monocytes/100 WBC (Bld) 4.1 % 1.7-12.0 [facility] Neutrophils Auto (Bld) [#/Vo l]on 07-21-2023 Neutrophils (Bld) [#/Vol] 7.4 10 3/uL 1.4-6.5 [facility] Neutrophils/100 WBC Auto (Bl d)on 07-21-2023 Neutrophils/100 WBC (Bld) 68.9 % 43.0-75.0 [facility] No Panel Informationon 07-21 Eosinophils # (Auto) 0.1 10 3/uL 0.0-0.7 [facility] Immature Granulocyte # (Auto) 0.03 10 3/uL 0.00-0.03 [facility] Platelet mean volume Auto (B ld) [Entitic vol]on 07-21-2023 Platelet mean volume (Bld) [Entitic vol] 9.8 fL 9.5-13.5 [facility] Platelets Auto (Bld) [#/Vol] on 07-21-2023 Platelets (Bld) [#/Vol] 220 10 3/uL 150-450 [facility] RBC Auto (Bld) [#/Vol]on RBC (Bld) [#/Vol] 4.41 10 6/uL 4.20-5.40 [facility] Urinalysis macro (dipstick) panel (U)on 07-08-2023 Bilirubin, UA Negative Negative - 4(70) +++ mg/dL [facility] Blood, UA Negative Negative - 50 Rodriguez/mcL [facility] Clarity, UA Clear [facility] Color, UA Yellow [facility] Glucose, UA Negative Negative - 1999(110) ++++ mg/dL [facility] Interpretation [...] for Children Protein, UA Negative Negative - 1999(20) ++++ mg/dL [facility] Spec Grav, UA 1.015 1 - 1.03 [facility] Urobilinogen, UA 1.0 0.2 - 12 mg/dL [facility] Urine Cultureon 08-07-2022 Urine Culture >100,000 [facility] Other Urine Culture <16 Susceptible [facility] Other Urine Culture <8/4 Susceptible [facility] Other Urine Culture >16 Resistant [facility] Other Urine Culture <4 Susceptible [facility] Other Urine Culture <2 Susceptible [facility] Other Urine Culture <1 Susceptible [facility] Other Urine Culture <0.25 Susceptible [facility] Other Urine Culture <0.5 Susceptible [facility] Other Urine Culture >8 Resistant [facility] Other Urine Culture <32 Susceptible [facility] Other Urine Culture 4 Susceptible [facility] Other Urine Culture >2/38 Resistant [facility] Other SARS-CoV-2 (COVID-19) RNA NA A+probe Ql (Resp)on 02-13-2022 SARS-CoV-2 (COVID-19) RNA CLAY+probe Ql (Unsp spec) Positive [facility] Other SARS-CoV-2 (COVID-19) RNA NA A+probe Ql (Resp)on 02-11-2022 SARS-CoV-2 (COVID-19) RNA CLAY+probe Ql (Unsp spec) Negative [facility] Other SARS-CoV-2 (COVID-19) RNA NA A+probe Ql (Resp)on 01-12-2022 SARS-CoV-2 (COVID-19) RNA CLAY+probe Ql (Unsp spec) Negative [facility] Other XR FOREARM RT 2Von XR FOREARM [...] by: JACKIE WILLETT Date: 2020-12-16 14:53 Normal [facility] Vital Signs Date Time Vital Sign Value Performing Clinician Facility 07-08-2023 13:27-0500 Body mass index (BMI) [Ratio] 38.51 kg/m2 Arpita GARDNER Work Phone: [facility] 07-08-2023 13:27-0500 Body weight 116.57 kg Arpita Olvera KENDRA Work Phone: [facility] 07-08-2023 13:27-0500 Diastolic blood pressure 70 mm[Hg] Arpita Olvera KENDRA Work Phone: [facility] 07-08-2023 13:27-0500 Systolic blood pressure 112 mm[Hg] Arpita Olvera KENDRA Work Phone: [facility] 03-01-2022 09:00-0400 Body height 175.26 cm Urban Max Other [facility] Other 03-01-2022 09:00-0400 Body mass index (BMI) [Ratio] 33.81 kg/m2 Urban Max Other [facility] Other 03-01-2022 09:00-0400 Body temperature 97.9 [degF] Urban Max Other [facility] Other 03-01-2022 09:00-0400 Body weight 103.87 kg Urban Max Other [facility] Other 03-01-2022 09:00-0400 Diastolic blood pressure 80 mm[Hg] Urban Max Other [facility] Other 03-01-2022 09:00-0400 Respiratory rate 20 /min Urban Max Other [facility] Other 03-01-2022 09:00-0400 SaO2% (BldA) [Mass fraction] 97 % Urban Max Other [facility] Other 03-01-2022 09:00-0400 Systolic blood pressure 118 mm[Hg] Urban Max Other [facility] Other 01-18-2022 09:45-0400 Body height 175.26 cm Urban Max Other [facility] Other 01-18-2022 09:45-0400 Body mass index (BMI) [Ratio] 32.93 kg/m2 Urban Max Other [facility] Other 01-18-2022 09:45-0400 Body temperature 97.3 [degF] Urban Max Other [facility] Other 01-18-2022 09:45-0400 Body weight 101.15 kg Urban Max Other [facility] Other 01-18-2022 09:45-0400 Diastolic blood pressure 72 mm[Hg] Urban Max Other [facility] Other 01-18-2022 09:45-0400 Respiratory rate 20 /min Urban Max Other [facility] Other 01-18-2022 09:45-0400 SaO2% (BldA) [Mass fraction] 98 % Urban Max Other [facility] Other 01-18-2022 09:45-0400 Systolic blood pressure 112 mm[Hg] Urban Max Other [facility] Other 03-05-2021 16:15-0400 Body height 175.26 cm Urban Max Other [facility] Other 03-05-2021 16:15-0400 Body mass index (BMI) [Ratio] 35.14 kg/m2 Urban Max Other [facility] Other 03-05-2021 16:15-0400 Body weight 107.96 kg Urban Max Other [facility] Other 03-05-2021 16:15-0400 Diastolic blood pressure 68 mm[Hg] Urban Max Other [facility] Other 03-05-2021 16:15-0400 Respiratory rate 20 /min Urban Max Other [facility] Other 03-05-2021 16:15-0400 SaO2% (BldA) [Mass fraction] 98 % Urban Max Other [facility] Other 03-05-2021 16:15-0400 Systolic blood pressure 110 mm[Hg] Urban Max Other [facility] Other Encounters Encounter Date Encounter Type Care Provider Facility Start: 04-15-2024 End: 04-15-2024 Clinisync Result Encounter Talita Herbert DO Work Phone: [facility] Unsolicited Start: 04-15-2024 End: 04-15-2024 Clinisync Result Encounter Talita Herbert DO Work [...] Available Start: 09-18-2023 End: 09-18-2023 ambulatory Tashi Negro Maurer Facility:[facility] Start: 09-18-2023 End: 09-18-2023 ambulatory DO Urban M. Max Work Phone: [facility] Work Phone: Start: 09-18-2023 End: 09-18-2023 Departed Referred DO Urban Max Work Phone: [facility] [address] Work Phone: Start: 09-16-2023 End: 09-16-2023 ambulatory ARPITA UZMA Not Available Start: 08-12-2023 End: 08-12-2023 ambulatory ARPITA UZMA Not Available Start: 08-05-2023 Non-patient / Non-visit DO Urban Max Work Phone: [facility] Work Phone: Start: 08-04-2023 Non-patient / Non-visit DO Urban Max Work Phone: [facility] Work Phone: Start: 07-29-2023 End: 07-29-2023 ambulatory ARPITA UZMA Not Available Start: 07-22-2023 End: 07-22-2023 ambulatory TALITA HERBERT Not Available Start: 07-21-2023 Non-patient / Non-visit DO Urban Max Work Phone: [facility] Work Phone: Start: 07-08-2023 End: 07-08-2023 flow sheet Arpita Olvera PA Work Phone: [facility] Comment [...] 09-10-2022 End: 09-10-2022 ambulatory Susanne Huitron Other [facility] Other Start: 09-10-2022 Telephone encounter Susanne Perez [facility] Start: 08-21-2022 End: 08-21-2022 ambulatory Dontrell Gallegos Other [facility] Other Start: 08-21-2022 Telephone encounter Dontrell Perez [facility] Start: 08-09-2022 End: 08-09-2022 ambulatory Urban Max Other [facility] Other Start: 08-09-2022 Telephone encounter Urban Max [facility] Start: 08-06-2022 End: 08-06-2022 ambulatory Urban Max Other [facility] Other Start: 08-06-2022 Telephone encounter Urban Max [facility] Start: 03-26-2022 End: 03-26-2022 ambulatory Urban Max Other [facility] Other Start: 03-26-2022 Telephone encounter Urban Max [facility] Start: 03-01-2022 End: 03-01-2022 ambulatory Urban Max Other [facility] Other Start: 03-01-2022 Encounter for genera l adult medical examination without abnormal findings Urban Max [facility] Start: 03-01-2022 Periodic preventive med est patient 18-39 yrs Urban Max [facility] Start: 02-13-2022 End: 02-13-2022 ambulatory Georgie Nighat Other [facility] Other Start: 02-13-2022 Nursing evaluation o f patient and report Georgie Nighat [facility] Start: 02-11-2022 End: 02-11-2022 ambulatory Georgie Nighat Other [facility] Other Start: 02-11-2022 Nursing evaluation o f patient and report Georgie Nighat [facility] Start: 01-18-2022 End: 01-18-2022 ambulatory Urban Max Other [facility] Other Start: 01-18-2022 Office outpatient visit 15 minutes Urban Max [facility] Start: 01-12-2022 End: 01-12-2022 ambulatory Georgie Nighat Other [facility] Other Start: 01-12-2022 Nursing evaluation o f patient and report Georgie Nighat [facility] Start: 03-05-2021 Encounter for genera l adult medical examination without abnormal findings Urban Max [facility] Start: 03-05-2021 Periodic preventive med est patient 18-39 yrs Urban Max [facility] Start: 12-16-2020 End: 12-16-[address] [facility] Facility:H1 Procedures Date Procedure Procedure Detail Performing Clinician Start: 04-15-2024 [facility] PREG QUANT HCG Core y Herbert DO Work Phone: Start: 04-02-2024 [facility] PREG QUANT HCG Core [...] AM EST Initial [facility] [address] [facility] Start: 05-07-2024 End: 05-07-2024 Professional / ancillary services management 05/07/2024 10:00 AM EST Ancillary Procedure [facility] [address] [facility] [address] [facility] Start: 05-03-2024 End: 05-03-2024 ambulatory 05/03/2024 11:00 AM EST Initial [facility] [address] [facility] [address] [facility] Start: 05-03-2024 End: 05-03-2024 Professional / ancillary services management 05/03/2024 10:30 AM EST Ancillary Procedure [facility] [address] [facility] [address] [facility] Start: 01-25-2024 Influenza vaccination Influenz a Vaccine (#1) [facility] Start: 09-18-2023 [facility] Start: 01-24-2023 Influenza vaccination Influenz a Vaccine (#1) [facility] Immunizations Immunization Date Immunization Notes Care Provider [place] 09-18-2023 influenza virus vaccine, unspecified formulation Talita Godinez DO Work Phone: [facility] 03-20-2021 COVID-19 mRNA-1273 (Moderna) DO Urban Max Work Phone: [facility] 02-27-2021 influenza, seasonal, injectable Urban Max Other [facility] 06-20-2020 COVID-19 mRNA-1273 (Moderna) DO Urban Max Work Phone: [facility] 05-23-2020 COVID-19 mRNA-1273 (Moderna) DO Urban Max Work Phone: [facility] 02-29-2020 influenza, injectable, quadrivalent, contains preservative Urban Max Other [facility] Other 02-29-2020 influenza, injectable, quadrivalent, preservative free DO Urban Max Work Phone: [facility] 02-29-2020 influenza virus vaccine, unspecified formulation Arpita GARDNER Work Phone: [facility] 02-07-2020 influenza, injectable, quadrivalent, contains preservative Patient Objection Urban Max Other [facility] Other NEGATED: Highlighted row has not occurred!02-07-2020 influenza, injectable, quadrivalent, contains preservative Patient Objection Georgie Disla Other [facility] Other Payers Date Payer Category Payer Self-pay [id number] [id number] 2023 Medicaid [facility] [employer] MEDICA[place] [id number] 2023-Present [address] [place] [address] [id number] 2023 Private Health Insurance [facility] MEDICAID [id number] 2022 Medicaid [id number] [address] [employer] [id number] 2022-Present [address] [place] [address] [id number] 2022 Unknown [id number] 1994 Unknown [id number] 2..[id number]. 593 1994 Unknown [id number] 2.16.840.1.729274.3.579.2. 1259 1994 Unknown [id number] 2.16.840.1.234721.3.579.2. 1259 1994 Unknown [id number] 2.16840.1.037081.3.579.2. 1259 1994 Unknown [id number] 2.16.840.1.558625.3.579.2. 1259 1994 Unknown [id number] 2.16840.1.133484.3.579.2. 1259 1994 Unknown [id number] 2.16.840.1.091922.3.579.2. 1259 1994 Unknown [id number] 2.16.840.1.032513.3.579.2. 1259 1994 Unknown [id number] 2.16.840.1.582644.3.579.2. 1259 1994 Unknown [id number] 2.16.840.1.986132.3.579.2. 1259 1994 Unknown [id number] 2.16.840.1.044008.3.579.2. 1259 1994 Unknown [id number] 2.16.840.1.233727.3.579.2. 1259 1959 Unknown [id number] Unknown [id number] [id number]. 531 Social History Date Type Detail Facility Unknown if ever smoked [facility] Other Start: 12-03-2022 End: 10-15-2023 Sex Assigned At [employer] Other Start: 02-23-2018 End: 12-01-2022 Tobacco smoking status NHIS Never smoked tobacco [facility] Start: 07-08-2023 End: 10-15-2023 Alcohol intake Current drinker of alcohol (finding) [facility] Start: 12-03-2022 End: 10-15-2023 History of Social function [facility] Start: 12-01-2022 Alcohol Comment occasional [facility] Start: 11-22-2022 [facility] Start: 1995 Sex Assigned At Not on file [facility] Start: 1995 Sex Assigned At Female F [facility] Clinical Notes 03-05-2021 to 07-08-2023 KENDRA Palencia - 07/08/2023 1:30 PM EST Note Date & Type Note Facility 02-13-2024 History of Presen t illness Narrative Reason [...] Acute non-recurrent frontal sinusitis (ICD-10 - J01.10) [facility] Other 03-14-2023 Evaluation note* Encounter Date Diagnosis Assessment Notes Treatment Notes Treatment Clinical Notes Jul, Dysuria (ICD-10 - R30.0) [facility] Other 11-01-2022 Evaluation note* Encounter Date Diagnosis Assessment Notes Treatment Notes Treatment Clinical Notes Mar, Anxiety (ICD-10 - F41.9) [facility] Other 10-07-2022 Evaluation note* Encounter Date Diagnosis Assessment Notes Treatment Notes Treatment Clinical Notes Feb, Encntr for general adult medical exam w/o abnormal findings (ICD-10 - Z00.00) Feb, Other No change today...Continue as is...FU 6 months.... [facility] Other 09-21-2022 Evaluation note* Encounter Date Diagnosis Assessment Notes Treatment Notes Treatment Clinical Notes Jan, Contact with and (suspected) exposure to other viral communicable diseases (ICD-10 - Z20.828) [facility] Other 09-19-2022 Evaluation note* Encounter Date Diagnosis Assessment Notes Treatment Notes Treatment Clinical Notes Jan, Contact with and (suspected) exposure to other viral communicable diseases (ICD-10 - Z20.828) [facility] Other 08-26-2022 Evaluation note* Encounter Date Diagnosis Assessment Notes Treatment Notes Treatment Clinical Notes Dec, Anxiety (ICD-10 - F41.9) E Rx sent. Lengthy discussion with patient that I think we need to try something than just a straight SSRI. We will see patient back in review. We talked about potential side effects as well as outcomes. She will call with any concerns. [facility] Other 08-20-2022 Evaluation note* Encounter Date Diagnosis Assessment Notes Treatment Notes Treatment Clinical Notes Dec, Contact with and (suspected) exposure to other viral communicable diseases (ICD-10 - Z20.828) [facility] Other 10-11-2021 Evaluation note* Encounter Date Diagnosis Assessment Notes Treatment Notes Treatment Clinical Notes Feb, Encntr for general adult medical exam w/o abnormal findings (ICD-10 - Z00.00) Feb, Other No change today...Continue as is...FU PRN/Yearly... [facility] Other Evaluation noteNo InformationNort [employer] Other Evaluation note* Diagnosis Third trimester state, incidental documented in this encounter [facility]: History general Narrative - Reported* Type Description Date Medical History Hx of MRSA Medical History anxiety Surgical History tonsillectomy and adenoidectomy 2012 Surgical History c-sections 2009 and 2016 Hospitalization History C Sections [facility] Other Summary Purpose Family History No Family History Records FoundNo Family History Records FoundNo Family History Records Found Advance Directives Advance Directive Response Recorded Date/ Time Advance Directives No April 03, 2018 12:04pm Chief Complaint and Reason for Visit Chief Complaint [facility] pre emp Additional Source Comments INFORMATION SOURCE (unrecogn ized section and content) DATE CREATED AUTHOR 12/19/2020 [facility] DATE CREATED AUTHOR AUTHOR'S ORGANIZ ATION 09/22/2023 [facility] DATE CREATED AUTHOR AUTHOR'S ORGANIZ ATION 01/15/2024 [facility] EPIC REASON FOR VISIT (unrecogniz ed section and content) Reason Comments Routine Visit Care Teams (unrecognized sec tion and content) Fitness Leader Relationship Specialty Start Date End Date Urban Santana MD [address] [address] PCP - General Family Medicine 11/18/22 Team [...] 2023 End: September 18, 2023 Tashi Tom Jr, DO Attending Provider Active S tart: September 18, 2023 End: September 18, 2023 Fitness Leader Relationship Specialty Start Date End Date Urban Santana MD [address] [phone] PCP - General Family Medicine 11/18/22 Fitness Leader Relationship Specialty Start Date End Date Urban Santana MD [address] [phone] PCP - General Family [facility] 11/18/22 Fitness Leader Relationship Specialty Start Date End Date Urban Santana MD [address] [phone] PCP - General Family Medicine 11/18/22 Goals [...] BE BASED ON THE PRIMARY CLINICAL RECORDS. [facility]. provides no warranty or guarantee of the accuracy or completeness of information in this document.
[2024-04-18 09:53] LABS: Anion Gap 14.8; BUN Creatinine Ratio 18.2; Calcium 8.6 mg/dL (8.5-10.1); Chloride 102 mmol/L (98-107); Estimated GFR (African America >60 (>=60 mL/min/1.73m^2); Estimated GFR (Non-African Ame >60 (>=60 mL/min/1.73m^2); Glucose 92 mg/dL (74-106); Potassium 3.8 mmol/L (3.5-5.1); Sodium 138 mmol/L (136-145)
[2024-04-18 10:00] LABS: HCG Quantitative 75400 mIU/mL
--- NOTE | 2024-04-18 10:13 | US_ITS ---
The [place] [id number] Patient Name: JARIVS MACEDO MRN: [id number] date: 1995 Sex: F Assigned Patient Location: ER Current Patient Location: ER Accession/Order Number: [id number] Exam Date: 04/18/2024 10:55 Report Date: 04/18/2024 12:24 At the request of: FILEMON ARREDONDO Procedure: US OB transvaginal PROCEDURE: US OB transvaginal, 04/18/2024 10:55 AM EST CLINICAL INDICATIONS: Vaginal bleeding in symptoms for 4 days 4 para 3 LMP 02/27/2024 Expected gestational age by LMP: 7 weeks 2 days Expected TONJA by LMP: 12/03/2024 COMPARISON: None TECHNIQUE: Transvaginal first trimester obstetric sonogram, grayscale, color evaluation. FINDINGS: Uterus: A single living intrauterine is identified. Intrauterine gestational sac, normal yolk sac, embryonic pole is seen. Cardiac activity is noted, heart rate 144 bpm. The gestational sac is low in position in the lower uterine segment. Embryonic crown-rump length: 0.94 cm Sonographic gestational age: 7 weeks 0 days +/- 4 days Sonographic TONJA 12/05/2024 There is a large complex perigestational hemorrhage along the superior aspect of the endometrial cavity. The process measures up to 4.7 x 5.1 x 3.1 cm. Maternal right ovary: 4.7 x 3.4 x 4.1 cm volume 37 mL. A complex A 3.1 x 3.3 x 3.1 cm maternal right ovarian corpus luteal cyst is favored. Areas of peripheral septation are present. Peripheral vascularity seen. Maternal left ovary: 2.9 x 2.9 x 1.6 cm, volume 8 mL. Normal sonographic morphology. US/US OB transvaginal IMPRESSION: 1. Single living intrauterine , sonographic gestational age 7 weeks 0 days +/- 4 days 2. Sonographic TONJA 12/05/2024 3. The intrauterine is low in position in the lower uterine segment. There is a large complex perigestational hemorrhage along the superior aspect of the gestational sac measuring up to 5.1 cm. 4. Mild complex 3.3 cm maternal right ovarian corpus luteal cyst 5. Normal maternal left ovarian sonographic morphology. 6. No significant maternal pelvic free fluid. Electronically authenticated by: PATRICK GROSS Date: 04/18/2024 12:24
== END 2024-04-18 12:40 | disposition home or self-care (01) ==
PROVIDERS: Emergency Provider Emergency Medicine; PCP Family Medicine
DX: O20.0 Threatened abortion (principal); O34.81 Maternal care for other abnormalities of pelvic organs, first trimester; N83.11 Corpus luteum cyst of right ovary; Z3A.01 Less than 8 weeks gestation of pregnancy
CPT/HCPCS: 36415; 76817; 80048; 84702; 85025; 99284

== ENCOUNTER 2024-05-03 09:13 | Outpatient (OUT) | payer OTHER, SELFPAY ==
--- NOTE | 2024-05-03 09:09 | US_ITS ---
The [address] [address] Patient Name: JARVIS MACEDO MRN: [id number] date: 1995 Sex: F Assigned Patient Location: [facility] Current Patient Location: Accession/Order Number: [id number] Exam Date: 05/03/2024 09:10 Report Date: 05/04/2024 05:21 At the request of: TALITA LEARY Procedure: US OB transvaginal EXAMINATION: US OB transvaginal HISTORY: MISSED MENSES, FOLLOW UP SUBCHORIONIC BLEED COMPARISON: Ultrasound OB transvaginal 04/18/2024 FINDINGS: GESTATIONAL SAC: Present and normal appearing. YOLK SAC: Present and normal appearing. POLE: Present and normal appearing. CARDIAC: Present. UTERUS: Heterogeneous hypoechoic material within uterine fundus above level of the gestational sac suspected to be sequela of prior subchorionic hemorrhage. OVARIES: Right: Corpus lutein cyst. Left: Not seen. CERVIX: 5.5 cm in length and closed. CUL-DE-SAC: Normal. OTHER: None. AGE BY LMP: 9 weeks 3 days TONJA BY LMP: 12/03/2024 AGE BY US CRL: 9 weeks 6 days TONJA BY US CRL: 11/30/2024 US/US OB transvaginal IMPRESSION: 1. Single live intrauterine . 2. Persistent subchorionic hematoma, but slightly smaller than previously seen. Electronically authenticated by: SELENA ZUÑIGA Date: 05/04/2024 05:21
== END 2024-05-03 09:14 | disposition home or self-care (01) ==
LOC: NOMS 09:13
PROVIDERS: PCP Family Medicine; Visit Provider Obstetrics & Gynecology
DX: O20.8 Other hemorrhage in early pregnancy (principal); Z3A.09 9 weeks gestation of pregnancy; N92.6 Irregular menstruation, unspecified
CPT/HCPCS: 76817

== ENCOUNTER 2024-05-21 11:48 | Outpatient (OUT) | payer OTHER, SELFPAY ==
--- OUTSIDE RECORDS SUMMARY | 2024-05-21 11:52 | XMS_ITS | CCD ---
Author Organization [facility] Care Team Providers Care Hair Mixer Name Role Phone DR SURY CENTENO Primary Care Unavailable MAGUE, DR MAUDE Pathak Admitting Unavailchristiana BOWSER, DR MAUDE Pathak Consulting Unavailchristiana BOWSER, DR MAUDE Pathak Attending UnavailJackie Morrow Consulting Unavailable Urban Santana Unavailable Georgie Disla Unavailable Dontrell Gallegos Unavailable Susanne Huitron Unavailable Urban Santana MD Primary Care Provider DO Urban Santana Primary Care Provider DO Tashi Tom Jr Attending Provider [phone] Tashi Tom Jr Attending Unavailable Tashi Tom Jr Admitting Unavailable Urban Santana Primary Care Unavailable UZMA, ARPITA Attending Unavailable UZMA, ARPITA Attending Unavailable UZMA, ARPITA Attending Unavailable UZMA, ARPITA Attending Unavailable TALITA GODINEZ Attending Unavailable UZMA, ARPITA Attending Unavailable UZMA, ARPITA Attending Unavailable UZMA, ARPITA Attending Unavailable UZMA, ARPITA Attending Unavailable ARPITA GUSMAN Attending Unavailable [...] Active ondansetron 4 mg disintegrating oral tablet (3 sources) Serotonin-3 Receptor Antagonist Start: 2023 End: 2023 take 1 tablet by mouth every six hours for nausea ondansetron ODT (Zofran-ODT) 4 MG disintegrating tablet Indications: Nausea and vomiting in Take 1 tablet (4 mg) by mouth every 6 (six) hours if needed for nausea or vomiting 30 tablet 2 04/05/2024 05/03/2024 Discontinued (Other) phentermine hydrochloride 37.5 mg oral tablet (20 sources) Sympathomimetic Amine Anorectic Start: 2023 End: [...] Active vitamin (Prenatabs Rx) 29-1 MG tablet (10 sources) Start: 2023 take 1 tablet by [...] Date Documented Da te Episodic/Chronic Anxiety disorders (20 sources) Anxiety; Translations: [Anxiety disorder, unspecified] Onset: 01-18-2022 Resolved: 01-18-2022 Chronic E Codes: Cut/pierceb (1 source) Contact with sharp glass, initial encounter; Translations: [CONTACT W/SHARP GLASS INITIAL ENC] Onset: 12-19-2020 Episodic Immunizations and screening for infectious disease (14 sources) Encounter for immunization; Translations: [Contact with and (suspected) exposure to other viral communicable diseases] Onset: 12-19-2020 Resolved: 02-11-2022 Episodic Menstrual disorders (1 source) Missed period; Translations: [Irregular menstruation, unspecified] 05-03-2024 Chronic Mood disorders (10 sources) Depressive disorder; Translations: [Depression] Onset: 11-18-2022 11-18-2022 Chronic Open wounds of extremities (4 sources) Laceration without foreign body of right forearm, initial encounter; Translations: [LACERATION W/O FB RT FORARM INITIAL] Onset: 12-16-2020 Episodic Other eye disorders (10 sources) Bilateral vitreous floaters; Translations: [Other vitreous opacities, bilateral] Onset: 11-18-2022 11-18-2022 Chronic Other female genital disorders (10 sources) Abnormal uterine bleeding; Translations: [Abnormal uterine and vaginal bleeding, unspecified] Onset: 11-18-2022 11-18-2022 Chronic Other nutritional; endocrine; and metabolic disorders (10 sources) Obesity; Translations: [Obesity, unspecified] Onset: 11-18-2022 11-18-2022 Chronic Other and delivery including normal (4 sources) Third trimester ; Translations: [Encounter for supervision of normal , unspecified, third trimester] 07-08-2023 Episodic Other upper respiratory infections (1 source) Acute frontal sinusitis, unspecified Episodic Residual codes; unclassified (11 sources) Insomnia; Translations: [Insomnia, unspecified] Episodic Past or Other Problems Problem Classification Problem Date Documented Da te Episodic/Chronic Administrative/social admission (2 sources) Patient encounter status; Translations: [Persons encountering health services in other specified circumstances] 01-13-2024 Episodic Genitourinary symptoms and ill-defined conditions (11 sources) Dysuria; Translations: [Malodorous urine] Onset: 11-18-2022 Episodic Joint disorders and dislocations; trauma-related (10 sources) Recurrent dislocation of shoulder region; Translations: [Recurrent dislocation, unspecified shoulder] Onset: 02-21-2009 12-03-2022 Episodic Other nutritional; endocrine; and metabolic disorders (2 sources) Weight gain; Translations: [Abnormal weight gain] 01-13-2024 Episodic Other screening for suspected conditions (not mental disorders or infectious disease) (10 sources) Liver function tests abnormal; Translations: [Abnormal results of liver function studies] Onset: 11-18-2022 11-18-2022 Episodic Results Test Name Value Interpretation Reference Range Facility HCG ( test) Ql (U)o n 05-03-2024 Interpretation and review of laboratory results Abnormal [facility] Preg Test, Ur Positive Negative [facility] Urinalysis macro (dipstick) panel (U)on 05-03-2024 Bilirubin, UA Negative Negative - 4(70) +++ mg/dL [facility] Blood, UA Negative Negative - 50 Rodriguez/mcL [facility] Clarity, UA Clear [facility] Color, UA Yellow [facility] Glucose, UA Negative Negative - 1999(110) ++++ mg/dL [facility] Interpretation and review of laboratory results Normal [facility] Ketones, UA Negative Negative - 160(16) ++++ mg/dL [facility] Leukocytes, UA Negative Negative - 500+++ Dg/mcL [facility] Nitrite, UA Negative Negative - Positive [facility] pH, UA 6 5 - 9 [facility] Protein, UA Negative Negative - 1999(20) ++++ mg/dL [facility] Spec Grav, UA 1.01 1 - 1.03 [facility] Urobilinogen, UA 1.0 0.2 - 12 mg/dL [facility] PREG QUANT HCGon 024 HCG QUANTITATIVE 58439 mIU/mL [facility] Comment on above: 5-50 0.2-1 WEEK 50-500 1-2 WEEKS 100-5,000 2-3 WEEKS 500-10,000 3-4 WEEKS 1,000-50,000 4-5 WEEKS 10,000-100,000 5-6 WEEKS 15,000-200,000 6-8 WEEKS 10,000-100,000 2-3 MONTHS [facility] PREG QUANT HCGon 024 HCG QUANTITATIVE 80587 mIU/mL [facility] Comment on above: 5-50 0.2-1 WEEK 50-500 1-2 WEEKS 100-5,000 2-3 WEEKS 500-10,000 3-4 WEEKS 1,000-50,000 4-5 WEEKS 10,000-100,000 5-6 WEEKS 15,000-200,000 6-8 WEEKS 10,000-100,000 2-3 MONTHS [facility] PREG QUANT HCGon 024 HCG QUANTITATIVE 6694 mIU/mL [facility] Comment on above: 5-50 0.2-1 WEEK 50-500 1-2 WEEKS 100-5,000 2-3 WEEKS 500-10,000 3-4 WEEKS 1,000-50,000 4-5 WEEKS 10,000-100,000 5-6 WEEKS 15,000-200,000 6-8 WEEKS 10,000-100,000 2-3 MONTHS [facility] PREG QUANT HCGon 024 HCG QUANTITATIVE 3710 mIU/mL [facility] Comment on above: 5-50 0.2-1 WEEK 50-500 1-2 WEEKS 100-5,000 2-3 WEEKS 500-10,000 3-4 WEEKS 1,000-50,000 4-5 WEEKS 10,000-100,000 5-6 WEEKS 15,000-200,000 6-8 WEEKS 10,000-100,000 2-3 MONTHS [facility] Alanine aminotransferase [En zymatic activity/volume] in Serum or PlasmaOrdered By: Georgie Calvo on 09-18-2023 ALT [Catalytic activity/Vol] 23 U/L 7-52 [facility] Albumin [Mass/volume] in Ser um or Plasma by Bromocresol green (BCG) dye binding methoOrdered By: Georgie Calvo on 09-18-2023 Albumin BCG dye [Mass/Vol] 4.7 g/dL 3.5-5.7 [facility] Alkaline phosphatase [Enzyma tic activity/volume] in Serum or PlasmaOrdered By: Georgie Calvo on 09-18-2023 ALP [Catalytic activity/Vol] 72 U/L 34-104 [facility] Aspartate aminotransferase [ Enzymatic activity/volume] in Serum or PlasmaOrdered By: Georgie Calvo on 09-18-2023 AST [Catalytic activity/Vol] 26 U/L 13-39 [facility] Bilirubin.total [Mass/volume ] in Serum or PlasmaOrdered By: Georgie Calvo on 09-18-2023 Bilirubin [Mass/Vol] 0.7 mg/dL 0.3-1.0 [facility] CMP with reflex to A1Con Albumin [Mass/Vol] 4.7 g/dL Normal 3.5-5.7 [facility] Comment on above: Performed By: #### N ICOTINE QUAL #### [facility] , #### CMP wRFX A1C, EBS LIPID #### [facility] [address] [place] [address] [place] Albumin/Globulin [Mass ratio] 2.0 {ratio} Normal [facility] Comment on above: Performed By: #### N ICOTINE QUAL #### [facility] , #### CMP wRFX A1C, EBS LIPID #### [facility] [address] [place] [address] [place] ALP [Catalytic activity/Vol] 72 U/L Normal 34-104 [facility] Comment on above: Performed By: #### N ICOTINE QUAL #### [facility] , #### CMP wRFX A1C, EBS LIPID #### [facility] [address] [place] [id number] [place] ALT [Catalytic activity/Vol] 23 U/L Normal 7-52 [facility] Comment on above: Performed By: #### N ICOTINE QUAL #### [facility] , #### CMP wRFX A1C, EBS LIPID #### [facility] [address] [place] [address] Anion gap [Moles/Vol] 12.5 mmol/L Normal 6.0-15.0 [facility] Comment on above: Performed By: #### N ICOTINE QUAL #### [facility] , #### CMP wRFX A1C, EBS LIPID #### [facility] [address] [place] [address] AST [Catalytic activity/Vol] 26 U/L Normal 13-39 [facility] Comment on above: Performed By: #### N ICOTINE QUAL #### [facility] , #### CMP wRFX A1C, EBS LIPID #### [place] [address] [place] Bilirubin [Mass/Vol] 0.7 mg/dL Normal 0.3-1.0 [facility] Comment on above: Performed By: #### N ICOTINE QUAL #### [facility] , #### CMP wRFX A1C, EBS LIPID #### [facility] [address] [place] [address] [place] Calcium [Mass/Vol] 10.1 mg/dL Normal 8.6-10.3 [facility] Comment on above: Performed By: #### N ICOTINE QUAL #### [facility] , #### CMP wRFX A1C, EBS LIPID #### [facility] [address] [place] [address] [place] Chloride [Moles/Vol] 101 mmol/L Normal 98-107 [facility] Comment on above: Performed By: #### N ICOTINE QUAL #### [facility] , #### CMP wRFX A1C, EBS LIPID #### [facility] [address] [place] [address] [place] CO2 [Moles/Vol] 28.5 mmol/L Normal 21.0-31.0 [facility] Comment on above: Performed By: #### N ICOTINE QUAL #### [facility] , #### CMP wRFX A1C, EBS LIPID #### [address] Creatinine [Mass/Vol] 0.79 mg/dL Normal 0.60-1.20 [facility] Comment on above: Performed By: #### N ICOTINE QUAL #### [facility] , #### CMP wRFX A1C, EBS LIPID #### [place] [address] [place] GFR/1.73 sq M.predicted MDRD (S/P/Bld) [Vol rate/Area] mL/min/{1.73_m2} Normal [facility] Comment on above: Performed By: #### N ICOTINE QUAL #### [facility] , #### CMP wRFX A1C, EBS LIPID #### [address] Globulin (S) [Mass/Vol] 2.4 g/dL Normal [facility] Comment on above: Performed By: #### N ICOTINE QUAL #### [facility] , #### CMP wRFX A1C, EBS LIPID #### [place] [address] [place] Glucose [Mass/Vol] 78 mg/dL Normal 70-100 [facility] Comment on above: Performed By: #### N ICOTINE QUAL #### [facility] , #### CMP wRFX A1C, EBS LIPID #### [facility] [address] [place] [address] [place] Potassium [Moles/Vol] 4.0 mmol/L Normal 3.5-5.1 [facility] Comment on above: Performed By: #### N ICOTINE QUAL #### [facility] , #### CMP wRFX A1C, EBS LIPID #### [facility] [address] [place] [address] [place] Protein [Mass/Vol] 7.1 g/dL Normal 6.4-8.9 [facility] Comment on above: Performed By: #### N ICOTINE QUAL #### [facility] , #### CMP wRFX A1C, EBS LIPID #### [facility] [address] [place] [address] [place] Sodium [Moles/Vol] 138 mmol/L Normal 136-145 [facility] Comment on above: Performed By: #### N ICOTINE QUAL #### [facility] , #### CMP wRFX A1C, EBS LIPID #### [facility] [address] [place] [address] [place] Urea nitrogen [Mass/Vol] 14 mg/dL Normal 7-25 [facility] Comment on above: Performed By: #### N ICOTINE QUAL #### [facility] , #### CMP wRFX A1C, EBS LIPID #### [facility] [address] Calcium [Mass/volume] in Ser um or PlasmaOrdered By: Georgie Calvo on 09-18-2023 Calcium [Mass/Vol] 10.1 mg/dL 8.6-10.3 [facility] Carbon dioxide, total [Moles /volume] in Serum or PlasmaOrdered By: Georgie Calvo on 09-18-2023 CO2 [Moles/Vol] 28.5 mmol/L 21.0-31.0 [facility] Chloride [Moles/volume] in S fabiana or PlasmaOrdered By: Georgie Calvo on 09-18-2023 Chloride [Moles/Vol] 101 mmol/L 98-107 [facility] Cholesterol [Mass/volume] in Serum or PlasmaOrdered By: Georgie Calvo on 09-18-2023 Cholesterol [Mass/Vol] 239 mg/dL 140-200 [facility] Comment on above: Chol less than 200 m g/dl low riskChol 201-239 mg/dl borderline riskChol 240 mg/dl and greater high risk Cholesterol in LDL Calc [Mas s/Vol]Ordered By: Georgie Calvo on 09-18-2023 Cholesterol in LDL [Mass/Vol] 154 mg/dL 0-100 [facility] Comment on above: LDL ATP III CLASSIFI CATIONLDL less than 100 mg/dL OptimalLDL 100-129 mg/dL Near or above optimalLDL 130-159 mg/dL Borderline highLDL 160-189 mg/dL HighLDL greater than 189 mg/dL Very high Cholesterol in VLDL Calc [Ma ss/Vol]Ordered By: Georgie Calvo on 09-18-2023 Cholesterol in VLDL [Mass/Vol] 14 mg/dL [facility] Creatinine [Mass/volume] in Serum or PlasmaOrdered By: Georgie Calvo on 09-18-2023 Creatinine [Mass/Vol] 0.79 mg/dL 0.60-1.20 [facility] Globulin Calc (S) [Mass/Vol] Ordered By: Georgie Calvo on 09-18-2023 Globulin (S) [Mass/Vol] 2.4 g/dL [facility] Glucose [Mass/volume] in Ser um or PlasmaOrdered By: Georgie Calvo on 09-18-2023 Glucose [Mass/Vol] 78 mg/dL 70-100 [facility] Lipid Profileon 09-18-2023 Cholesterol [Mass/Vol] 239 mg/dL High 140-200 [facility] Comment on above: Result Comment: Chol less than 200 mg/dl low risk Chol 201-239 mg/dl borderline risk Chol 240 mg/dl and greater high risk Performed By: #### N ICOTINE QUAL #### [facility] , #### CMP wRFX A1C, EBS LIPID #### [facility] [address] [place] [address] Cholesterol in HDL [Mass/Vol] 70 mg/dL Normal 23-92 [facility] Comment on above: Result Comment: HDL CHOL ATP-III CLASSIFICATION Cardiovascular Risk HDL > or equal to 60 mg/dL LOW HDL < 40 mg/dL HIGH Performed By: #### N ICOTINE QUAL #### [facility] , #### CMP wRFX A1C, EBS LIPID #### [facility] [address] Cholesterol.total/[place] sterol in HDL [Mass ratio] 3.4 {ratio} Normal <5.0 [facility] Comment on above: Result Comment: PERF ORMED BY: [place] [address] PATHOLOGIST PLASTIC CNC MACHINE OPERATOR ROBERT WEBB M.D. Performed By: #### N ICOTINE QUAL #### [facility] , #### CMP wRFX A1C, EBS LIPID #### [address] LDL Cholesterol,Calculated 154 mg/dL High 0-100 [facility] Comment on above: Result Comment: LDL ATP III CLASSIFICATION LDL less than 100 mg/dL Optimal LDL 100-129 mg/dL Near or above optimal LDL 130-159 mg/dL Borderline high LDL 160-189 mg/dL High LDL greater than 189 mg/dL Very high Performed By: #### N ICOTINE QUAL #### [facility] , #### CMP wRFX A1C, EBS LIPID #### [address] Triglyceride w/Reflex 73 mg/dL Normal 0-149 [facility] Comment on above: [...] #### CMP wRFX A1C, EBS LIPID #### [facility] [address] [place] [address] VLDL CHOLESTEROL 14 mg/dL Normal [facility] Comment on above: Performed By: #### N ICOTINE QUAL #### [facility] , #### CMP wRFX A1C, EBS LIPID #### [facility] [address] [place] [id number] [facility] Nicotine Metabolite, Qualon 09-18-2023 Nicotine Metabolite Negative Normal Cutoff=25 [facility] Comment on above: Result Comment: Perf ormed at: BN - [facility] [address] [id number] [place] Supervisor: Josh Ortez MD, Phone: [phone] PERFORMED BY: [place] [address] PATHOLOGIST PLASTIC CNC MACHINE OPERATOR ROBERT WEBB M.D. Performed By: #### N ICOTINE QUAL #### [facility] , #### CMP wRFX A1C, EBS LIPID #### [address] No Panel InformationOrdered By: Georgie Calvo on 09-18-2023 Estimated GFR (CKD-EPI) > 60.0 mL/Min [facility] Creatinine Clearance (Chem N/A [facility] Potassium [Moles/volume] in Serum or PlasmaOrdered By: Georgie Calvo on 09-18-2023 Potassium [Moles/Vol] 4.0 mmol/L 3.5-5.1 [facility] Protein [Mass/volume] in Ser um or PlasmaOrdered By: Georgie Calvo on 09-18-2023 Protein [Mass/Vol] 7.1 g/dL 6.4-8.9 [facility] Serum or plasma albumin/glob ulin mass ratioOrdered By: Georgie Calvo on 09-18-2023 Albumin/Globulin [Mass ratio] 2.0 {ratio} [facility] Serum or plasma anion gap de terminationOrdered By: Georgie Calvo on 09-18-2023 Anion gap [Moles/Vol] 12.5 mmol/L 6.0-15.0 [facility] Serum or plasma high density lipoprotein (HDL) cholesterol measurementOrdered By: Georgie Calvo on 09-18-2023 Cholesterol in HDL [Mass/Vol] 70 mg/dL 23- [facility] Comment on above: HDL CHOL ATP-III CLA SSIFICATION Cardiovascular RiskHDL > or equal to 60 mg/dL LOWHDL < 40 mg/dL HIGH Serum or plasma total choles terol/high density lipoprotein (HDL) cholesterol mass ratOrdered By: Georgie Calvo on 09-18-2023 Cholesterol.total/[place] sterol in HDL [Mass ratio] 3.4 {ratio} <5.0 [facility] Sodium [Moles/volume] in Ser um or PlasmaOrdered By: Georgie Calvo on 09-18-2023 Sodium [Moles/Vol] 138 mmol/L 136-145 [facility] Triglyceride [Mass/volume] i n Serum or PlasmaOrdered By: Georgie Calvo on 09-18-2023 Triglyceride [Mass/Vol] 73 mg/dL 0-149 [facility] Comment on above: TRIG ATP III CLASSIF ICATIONTRIG less than 150 mg/dL NormalTRIG 150-199 mg/dL Borderline highTRIG 200-500 mg/dL High TRIG greater than 500 mg/dL Very highStandard traceable to the Center for Disease Conrtrol and Prevention (CDC) test method. Urea nitrogen [Mass/volume] in Serum or PlasmaOrdered By: Georgie Calvo on 09-18-2023 Urea nitrogen [Mass/Vol] 14 mg/dL 7-25 [facility] Basophils Auto (Bld) [#/Vol] on 08-05-2023 Basophils (Bld) [#/Vol] 0.0 10 3/uL 0.0-0.1 [facility] Basophils/100 WBC Auto (Bld) on 08-05-2023 Basophils/100 WBC (Bld) 0.2 % 0.2-2.0 [facility] Eosinophils/100 WBC Auto (Bl d)on 08-05-2023 Eosinophils/100 WBC (Bld) 0.1 % 0.9-7.0 [facility] Erythrocyte distribution wid th Auto (RBC) [Ratio]on 08-05-2023 Erythrocyte distribution width (RBC) [Ratio] 13.8 % 11.0-15.0 [facility] Hematocrit Auto (Bld) [Volum e fraction]on 08-05-2023 Hematocrit (Bld) [Volume fraction] 33.5 % 36.0-48.0 [facility] Hemoglobin [Mass/volume] in Bloodon 08-05-2023 Hemoglobin (Bld) [Mass/Vol] 10.7 g/dL 12.0-16.0 [facility] Laboratory - Hematology and Cell countson 08-05-2023 Immature granulocytes/100 WBC (Bld) 0.5 % 0.0-0.5 [facility] Leukocytes [#/volume] correc oneal for nucleated erythrocytes in Blood by Automated counon 08-05-2023 WBC corrected for nucl RBC Auto (Bld) [#/Vol] 19.3 10 3/uL 4.0-11.0 [facility] Lymphocytes Auto (Bld) [#/Vo l]on 08-05-2023 Lymphocytes (Bld) [#/Vol] 1.7 10 3/uL 1.2-3.8 [facility] Lymphocytes/100 WBC Auto (Bl d)on 08-05-2023 Lymphocytes/100 WBC (Bld) 9.0 % 20.5-60.0 [facility] MCH Auto (RBC) [Entitic mass ]on 08-05-2023 MCH (RBC) [Entitic mass] 27.9 pg 26.7-34.0 [facility] MCHC Auto (RBC) [Mass/Vol]on 08-05-2023 MCHC (RBC) [Mass/Vol] 31.9 g/dL 29.9-35.2 [facility] MCV Auto (RBC) [Entitic vol] on 08-05-2023 MCV (RBC) [Entitic vol] 87.2 fL 81.0-99.0 [facility] Monocytes Auto (Bld) [#/Vol] on 08-05-2023 Monocytes (Bld) [#/Vol] 0.5 10 3/uL 0.3-0.8 [facility] Monocytes/100 WBC Auto (Bld) on 08-05-2023 Monocytes/100 WBC (Bld) 2.8 % 1.7-12.0 [facility] Neutrophils Auto (Bld) [#/Vo l]on 08-05-2023 Neutrophils (Bld) [#/Vol] 16.9 10 3/uL 1.4-6.5 [facility] Neutrophils/100 WBC Auto (Bl d)on 08-05-2023 Neutrophils/100 WBC (Bld) 87.4 % 43.0-75.0 [facility] No Panel Informationon 08-04 Eosinophils # (Auto) 0.0 10 3/uL 0.0-0.7 [facility] Immature Granulocyte # (Auto) 0.09 10 3/uL 0.00-0.03 [facility] Platelet mean volume Auto (B ld) [Entitic vol]on 08-05-2023 Platelet mean volume (Bld) [Entitic vol] 10.4 fL 9.5-13.5 [facility] Platelets Auto (Bld) [#/Vol] on 08-05-2023 Platelets (Bld) [#/Vol] 199 10 3/uL 150-450 [facility] RBC Auto (Bld) [#/Vol]on RBC (Bld) [#/Vol] 3.84 10 6/uL 4.20-5.40 [facility] Basophils Auto (Bld) [#/Vol] on 08-04-2023 Basophils (Bld) [#/Vol] 0.0 10 3/uL 0.0-0.1 [facility] Basophils/100 WBC Auto (Bld) on 08-04-2023 Basophils/100 WBC (Bld) 0.2 % 0.2-2.0 [facility] Buprenorphine [Presence] in Urineon 08-04-2023 Buprenorphine Ql (U) Negative NEGATIVE [facility] Comment on above: DRUG CLASS TEST SYST EM CUT-OFF CONCENTRATIONS ARE ASFOLLOWS:AMP (Amphetamine): 500 ng/mLBAR (Barbiturates): 200 ng/mLBZO (Benzodiazepines): 150 ng/mLBUP (Buprenorphine): 10 ng/mLCOC (Cocaine): 150 ng/mLmAMP (Methamphetamine): 500 ng/mLMTD (Methadone): 200 ng/mLOPI (Opiates): 100 ng/mLOXY (Oxycodone): 100 ng/mLPCP (Phencyclidine): 25 ng/mLTHC (Cannabinoids): 50 ng/mLTCA (Trycyclic Antidepressants): 300 ng/mL Eosinophils/100 WBC Auto (Bl d)on 08-04-2023 Eosinophils/100 WBC (Bld) 0.4 % 0.9-7.0 [facility] Erythrocyte distribution wid th Auto (RBC) [Ratio]on 08-04-2023 Erythrocyte distribution width (RBC) [Ratio] 13.7 % 11.0-15.0 [facility] Hematocrit Auto (Bld) [Volum e fraction]on 08-04-2023 Hematocrit (Bld) [Volume fraction] 37.3 % 36.0-48.0 [facility] Hemoglobin [Mass/volume] in Bloodon 08-04-2023 Hemoglobin (Bld) [Mass/Vol] 12.1 g/dL 12.0-16.0 [facility] - Drug toxicology on 08-04-2023 Amphetamines Ql (U) Negative NEGATIVE [facility] Benzod[facility]ines Ql (U) Negative NEGATIVE [facility] Cocaine Ql (U) Negative NEGATIVE [facility] Opiates Ql (U) Negative NEGATIVE [facility] Phencyclidine Ql (U) Negative NEGATIVE [facility] Laboratory - Hematology and Cell countson 08-04-2023 Immature granulocytes/100 WBC (Bld) 0.3 % 0.0-0.5 [facility] Leukocytes [#/volume] correc oneal for nucleated erythrocytes in Blood by Automated counon 08-04-2023 WBC corrected for nucl RBC Auto (Bld) [#/Vol] 11.9 10 3/uL 4.0-11.0 [facility] Lymphocytes Auto (Bld) [#/Vo l]on 08-04-2023 Lymphocytes (Bld) [#/Vol] 3.4 10 3/uL 1.2-3.8 [facility] Lymphocytes/100 WBC Auto (Bl d)on 08-04-2023 Lymphocytes/100 WBC (Bld) 28.8 % 20.5-60.0 [facility] MCH Auto (RBC) [Entitic mass ]on 08-04-2023 MCH (RBC) [Entitic mass] 27.8 pg 26.7-34.0 [facility] MCHC Auto (RBC) [Mass/Vol]on 08-04-2023 MCHC (RBC) [Mass/Vol] 32.4 g/dL 29.9-35.2 [facility] MCV Auto (RBC) [Entitic vol] on 08-04-2023 MCV (RBC) [Entitic vol] 85.6 fL 81.0-99.0 [facility] Methadone [Presence] in Urin e by Screen methodon 08-04-2023 Methadone Screen Ql (U) Negative NEGATIVE [facility] Monocytes Auto (Bld) [#/Vol] on 08-04-2023 Monocytes (Bld) [#/Vol] 0.5 10 3/uL 0.3-0.8 [facility] Monocytes/100 WBC Auto (Bld) on 08-04-2023 Monocytes/100 WBC (Bld) 4.6 % 1.7-12.0 [facility] Neutrophils Auto (Bld) [#/Vo l]on 08-04-2023 Neutrophils (Bld) [#/Vol] 7.8 10 3/uL 1.4-6.5 [facility] Neutrophils/100 WBC Auto (Bl d)on 08-04-2023 Neutrophils/100 WBC (Bld) 65.7 % 43.0-75.0 [facility] No Panel Informationon 08-03 Eosinophils # (Auto) 0.1 10 3/uL 0.0-0.7 [facility] Immature Granulocyte # (Auto) 0.04 10 3/uL 0.00-0.03 [facility] Urine Barbiturates Screen Negative NEGATIVE [facility] Urine Marijuana (THC) Screen Negative NEGATIVE [facility] Urine Methamphetamines Screen Negative NEGATIVE [facility] Platelet mean volume Auto (B ld) [Entitic vol]on 08-04-2023 Platelet mean volume (Bld) [Entitic vol] 10.0 fL 9.5-13.5 [facility] Platelets Auto (Bld) [#/Vol] on 08-04-2023 Platelets (Bld) [#/Vol] 228 10 3/uL 150-450 [facility] RBC Auto (Bld) [#/Vol]on RBC (Bld) [#/Vol] 4.36 10 6/uL 4.20-5.40 [facility] Urine tricyclic antidepressa nt measurementon 08-04-2023 Tricyclic antidepressants (U) [Mass/Vol] Negative NEGATIVE [facility] oxyCODONE+oxyMORphone [Prese nce] in Urine by Screen methodon 08-04-2023 oxyCODONE+oxyMORphone Screen Ql (U) Negative NEGATIVE [facility] Basophils Auto (Bld) [#/Vol] on 07-21-2023 Basophils (Bld) [#/Vol] 0.0 10 3/uL 0.0-0.1 [facility] Basophils/100 WBC Auto (Bld) on 07-21-2023 Basophils/100 WBC (Bld) 0.3 % 0.2-2.0 [facility] Eosinophils/100 WBC Auto (Bl d)on 07-21-2023 Eosinophils/100 WBC (Bld) 0.6 % 0.9-7.0 [facility] Erythrocyte distribution wid th Auto (RBC) [Ratio]on 07-21-2023 Erythrocyte distribution width (RBC) [Ratio] 13.4 % 11.0-15.0 [facility] Hematocrit Auto (Bld) [Volum e fraction]on 07-21-2023 Hematocrit (Bld) [Volume fraction] 38.1 % 36.0-48.0 [facility] Hemoglobin [Mass/volume] in Bloodon 07-21-2023 Hemoglobin (Bld) [Mass/Vol] 12.3 g/dL 12.0-16.0 [facility] Laboratory - Hematology and Cell countson 07-21-2023 Immature granulocytes/100 WBC (Bld) 0.3 % 0.0-0.5 [facility] Leukocytes [#/volume] correc oneal for nucleated erythrocytes in Blood by Automated counon 07-21-2023 WBC corrected for nucl RBC Auto (Bld) [#/Vol] 10.7 10 3/uL 4.0-11.0 [facility] Lymphocytes Auto (Bld) [#/Vo l]on 07-21-2023 Lymphocytes (Bld) [#/Vol] 2.8 10 3/uL 1.2-3.8 [facility] Lymphocytes/100 WBC Auto (Bl d)on 07-21-2023 Lymphocytes/100 WBC (Bld) 25.8 % 20.5-60.0 [facility] MCH Auto (RBC) [Entitic mass ]on 07-21-2023 MCH (RBC) [Entitic mass] 27.9 pg 26.7-34.0 [facility] MCHC Auto (RBC) [Mass/Vol]on 07-21-2023 MCHC (RBC) [Mass/Vol] 32.3 g/dL 29.9-35.2 [facility] MCV Auto (RBC) [Entitic vol] on 07-21-2023 MCV (RBC) [Entitic vol] 86.4 fL 81.0-99.0 [facility] Monocytes Auto (Bld) [#/Vol] on 07-21-2023 Monocytes (Bld) [#/Vol] 0.4 10 3/uL 0.3-0.8 [facility] Monocytes/100 WBC Auto (Bld) on 07-21-2023 Monocytes/100 WBC (Bld) 4.1 % 1.7-12.0 [facility] Neutrophils Auto (Bld) [#/Vo l]on 07-21-2023 Neutrophils (Bld) [#/Vol] 7.4 10 3/uL 1.4-6.5 [facility] Neutrophils/100 WBC Auto (Bl d)on 07-21-2023 Neutrophils/100 WBC (Bld) 68.9 % 43.0-75.0 [facility] No Panel Informationon 07-21 Eosinophils # (Auto) 0.1 10 3/uL 0.0-0.7 [facility] Immature Granulocyte # (Auto) 0.03 10 3/uL 0.00-0.03 [facility] Platelet mean volume Auto (B ld) [Entitic vol]on 07-21-2023 Platelet mean volume (Bld) [Entitic vol] 9.8 fL 9.5-13.5 [facility] Platelets Auto (Bld) [#/Vol] on 07-21-2023 Platelets (Bld) [#/Vol] 220 10 3/uL 150-450 [facility] RBC Auto (Bld) [#/Vol]on RBC (Bld) [#/Vol] 4.41 10 6/uL 4.20-5.40 [facility] Urinalysis macro (dipstick) panel (U)on 07-08-2023 Bilirubin, UA Negative Negative - 4(70) +++ mg/dL [facility] Blood, UA Negative Negative - 50 Rodriguez/mcL [facility] Clarity, UA Clear [facility] Color, UA Yellow [facility] Glucose, UA Negative Negative - 1999(110) ++++ mg/dL [facility] Interpretation and review of laboratory results Abnormal [facility] Ketones, UA Negative Negative - 160(16) ++++ mg/dL [facility] Leukocytes, UA Positive Negative - 500+++ Dg/mcL [facility] Nitrite, UA Negative Negative - Positive [facility] pH, UA 5.5 5 - 9 [facility] Protein, UA Negative Negative - 1999(20) ++++ mg/dL [facility] Spec Grav, UA 1.015 1 - 1.03 [facility] Urobilinogen, UA 1.0 0.2 - 12 mg/dL [facility] Urine Cultureon 08-07-2022 Urine Culture >100,000 [employer] Other Urine Culture <16 [employer] Other Urine Culture <8/4 [employer] Other Urine Culture >16 Resistant [employer] Other Urine Culture <4 [employer] Other Urine Culture <2 [employer] Other Urine Culture <1 [employer] Other Urine Culture <0.25 [employer] Other Urine Culture <0.5 [employer] Other Urine Culture >8 Resistant [employer] Other Urine Culture <32 [employer] Other Urine Culture 4 Susceptible [employer] Other Urine Culture >2/38 Resistant [employer] Other SARS-CoV-2 (COVID-19) RNA NA A+probe Ql (Resp)on 02-13-2022 SARS-CoV-2 (COVID-19) RNA CLAY+probe Ql (Unsp spec) Positive [employer] Other SARS-CoV-2 (COVID-19) RNA NA A+probe Ql (Resp)on 02-11-2022 SARS-CoV-2 (COVID-19) RNA CLAY+probe Ql (Unsp spec) Negative [employer] Other SARS-CoV-2 (COVID-19) RNA NA A+probe Ql (Resp)on 01-12-2022 SARS-CoV-2 (COVID-19) RNA CLAY+probe Ql (Unsp spec) Negative [employer] Other XR FOREARM RT 2Von 1 XR [...] by: JACKIE WILLETT Date: 2020-12-16 14:53 Normal [facility] Vital Signs Date Time Vital Sign Value Performing Clinician Facility 01-13-2024 13:38-0400 Body mass index (BMI) [Ratio] 33.56 kg/m2 Arpita GARDNER Work Phone: [facility] 01-13-2024 13:38-0400 Body weight 101.61 kg Arpita GARDNER Work Phone: [facility] 01-13-2024 13:38-0400 Diastolic blood pressure 74 mm[Hg] Arpita Gusman PA Work Phone: [facility] 01-13-2024 13:38-0400 Systolic blood pressure 116 mm[Hg] Arpita Woodlawn PA Work Phone: [facility] 07-08-2023 13:27-0500 Body mass index (BMI) [Ratio] 38.51 kg/m2 Arpita Uzma PA Work Phone: [facility] 07-08-2023 13:27-0500 Body weight 116.57 kg Arpita Uzma PA Work Phone: [facility] 07-08-2023 13:27-0500 Diastolic blood pressure 70 mm[Hg] Arpita Uzma PA Work Phone: [facility] 07-08-2023 13:27-0500 Systolic blood pressure 112 mm[Hg] Arpita Gusman PA Work Phone: [facility] 03-01-2022 09:00-0400 Body height 175.26 cm [facility] Other [employer] Other 03-01-2022 09:00-0400 Body mass index (BMI) [Ratio] 33.81 kg/m2 [facility] Other [employer] Other 03-01-2022 09:00-0400 Body temperature 97.9 [degF] Urban Max Other [employer] Other 03-01-2022 09:00-0400 Body weight 103.87 kg Urban [facility] Other [employer] Other 03-01-2022 09:00-0400 Diastolic blood pressure 80 mm[Hg] Urban Max Other [employer] Other 03-01-2022 09:00-0400 Respiratory rate 20 /min Urban [facility] Other [employer] Other 03-01-2022 09:00-0400 SaO2% (BldA) [Mass fraction] 97 % Urban [facility] Other [employer] Other 03-01-2022 09:00-0400 Systolic blood pressure 118 mm[Hg] Urban Max Other [employer] Other 01-18-2022 09:45-0400 Body height 175.26 cm Urban Max Other [employer] Other 01-18-2022 09:45-0400 Body mass index (BMI) [Ratio] 32.93 kg/m2 [facility] Other [employer] Other 01-18-2022 09:45-0400 Body temperature 97.3 [degF] Urban [facility] Other [employer] Other 01-18-2022 09:45-0400 Body weight 101.15 kg Urban Max Other [employer] Other 01-18-2022 09:45-0400 Diastolic blood pressure 72 mm[Hg] Urban Max Other [employer] Other 01-18-2022 09:45-0400 Respiratory rate 20 /min Urban Max Other [employer] Other 01-18-2022 09:45-0400 SaO2% (BldA) [Mass fraction] 98 % Urban Max Other [employer] Other 01-18-2022 09:45-0400 Systolic blood pressure 112 mm[Hg] Urban Max Other [employer] Other 03-05-2021 16:15-0400 Body height 175.26 cm Urban Max Other [employer] Other 03-05-2021 16:15-0400 Body mass index (BMI) [Ratio] 35.14 kg/m2 [facility] Other [employer] Other 03-05-2021 16:15-0400 Body weight 107.96 kg Urban Max Other [employer] Other 03-05-2021 16:15-0400 Diastolic blood pressure 68 mm[Hg] Urban Max Other [employer] Other 03-05-2021 16:15-0400 Respiratory rate 20 /min Urban Max Other [employer] Other 03-05-2021 16:15-0400 SaO2% (BldA) [Mass fraction] 98 % Urban [facility] Other [employer] Other 03-05-2021 16:15-0400 Systolic blood pressure 110 mm[Hg] Urban Max Other [employer] Other Encounters Encounter Date Encounter Type Care Provider Facility Start: 05-03-2024 End: 05-03-2024 ambulatory ARPITA UZMA Not Available Start: 05-03-2024 End: 05-03-2024 Office outpatient visit 5 minutes [facility] Herbert Nurse [facility] Comment on above: GA: 9w3d Start: 04-17-2024 End: 04-17-2024 Clinisync Result Encounter Talita Herbert DO Work Phone: [facility] Unsolicited Start: 04-17-2024 End: 04-17-2024 Clinisync Result Encounter Talita Herbert DO Work [...] External Department Unsolicited Start: 01-13-2024 End: 01-13-2024 Bamboo flowsheet Arpita GARDNER Work Phone: [facility] Start: 01-13-2024 End: 01-13-2024 Bamboo flowsheet Arpita GARDNER Work Phone: [facility] Start: 01-13-2024 End: 01-13-2024 Online digital e/m svc est pt <7 d 5-10 minutes Arpita GARDNER Work Phone: [facility] Comment on above: Weight gain; Encounter for weight management Start: 01-13-2024 End: 01-13-2024 ambulatory ARPITA UZMA Not Available Start: 10-15-2023 End: 10-15-2023 ambulatory ARPITA UZMA Not Available Start: 09-18-2023 End: 09-18-2023 ambulatory Tashi Tom Facility:[facility] Start: 09-18-2023 End: 09-18-2023 ambulatory DO Urban M. Max Work Phone: [facility] Work Phone: Start: 09-18-2023 End: 09-18-2023 Departed Referred DO Urban Max Work Phone: [facility] [address] Work Phone: Start: 09-16-2023 End: 09-16-2023 ambulatory ARPITA UZMA Not Available Start: 08-12-2023 End: 08-12-2023 ambulatory ARPITA UZMA Not Available Start: 08-05-2023 Non-patient / Non-visit DO Urban Max Work Phone: [facility] Work Phone: Start: 08-04-2023 Non-patient / Non-visit DO Urban Max Work Phone: [facility] Work Phone: Start: 07-29-2023 End: 07-29-2023 ambulatory ARPITA UZMA Not Available Start: 07-22-2023 End: 07-22-2023 ambulatory TALITA HAMLINO Not Available Start: 07-21-2023 Non-patient / Non-visit DO Urban Max Work Phone: [facility] Work Phone: Start: 07-08-2023 End: 07-08-2023 flow sheet Arpita Gusman PA Work Phone: [facility] Comment on above: Third trimester preg opal Start: 07-08-2023 End: 07-08-2023 ambulatory ARPITA UZMA Not Available Start: 06-24-2023 End: 06-24-2023 ambulatory ARPITA GUSMAN Not Available Start: 06-10-2023 End: 06-10-2023 ambulatory ARPITA UZMA Not Available Start: 05-27-2023 End: 05-27-2023 ambulatory ARPITA TURPINEY Not Available Start: 09-10-2022 End: 09-10-2022 ambulatory Susanne Huitron Other [employer] Other Start: 09-10-2022 Telephone encounter Susanne Soraidarachel Perez [facility] Start: 08-21-2022 End: 08-21-2022 ambulatory Dontrell Gallegos Other [employer] Other Start: 08-21-2022 Telephone encounter Dontrell Perez [facility] Start: 08-09-2022 End: 08-09-2022 ambulatory Urban Max Other [employer] Other Start: 08-09-2022 Telephone encounter Urban Max [facility] Start: 08-06-2022 End: 08-06-2022 ambulatory Urban Max Other [employer] Other Start: 08-06-2022 Telephone encounter Urban Max [facility] Start: 03-26-2022 End: 03-26-2022 ambulatory Urban Max Other [employer] Other Start: 03-26-2022 Telephone encounter Urban Max [facility] Start: 03-01-2022 End: 03-01-2022 ambulatory Urban Max Other [employer] Other Start: 03-01-2022 Encounter for genera l adult medical examination without abnormal findings Urban Max [facility] Start: 03-01-2022 Periodic preventive med est patient 18-39 yrs Urban Max [facility] Start: 02-13-2022 End: 02-13-2022 ambulatory Georgie Disla Other [employer] Other Start: 02-13-2022 Nursing evaluation o f patient and report Georgie Disla [facility] Start: 02-11-2022 End: 02-11-2022 ambulatory Georgie Disla Other [employer] Other Start: 02-11-2022 Nursing evaluation o f patient and report Georgie Disla [facility] Start: 01-18-2022 End: 01-18-2022 ambulatory Urban Max Other [employer] Other Start: 01-18-2022 Office outpatient visit 15 minutes Urban Max [facility] Start: 01-12-2022 End: 01-12-2022 ambulatory Georgie Wademond Other [employer] Other Start: 01-12-2022 Nursing evaluation o f patient and report Georgie Disla [facility] Start: 03-05-2021 Encounter for genera l adult medical examination without abnormal findings Urban Max [facility] Start: 03-05-2021 Periodic preventive med est patient 18-39 yrs Urban Max [facility] Start: 12-16-2020 End: 12-16-[address] [place] [facility] Facility: Procedures Date Procedure Procedure Detail Performing Clinician Start: 05-03-2024 Urnls dip stick/tabl et rgnt non-auto w/o micrscp Talita Herbert DO Work Phone: Start: 04-17-2024 [facility] PREG QUANT HCG Core y Herbert DO Work Phone: Start: 04-15-2024 [facility] PREG QUANT HCG Core y Herbert DO Work Phone: Start: 04-02-2024 [facility] PREG QUANT HCG Core y Herbert DO Work Phone: Start: 03-31-2024 [facility] PREG QUANT HCG Core y Herbert DO Work Phone: Start: 07-08-2023 Urnls dip stick/tabl et rgnt non-auto w/o micrscp Arpita Gusman PA Work Phone: Start: 01-03-2023 Microscopic observat ion [Identifier] in Cervix by Cyto stain Talita Herbert DO Work Phone: Start: 08-07-2022 Piperacillin/tazobactam [facility] Other Plan of Treatment Date Care Activity Detail Author Start: 01-04-2028 Screening for malign ant neoplasm of cervix HPV/Cotest [facility] Start: 01-03-2026 Screening for malign ant neoplasm of cervix [facility] Start: 05-31-2024 End: 05-31-2024 Patient encounter procedure 05/31/2024 1:00 PM EST Routine [facility] [address] [facility] [place] [id number] Talita Godinez, DO [address] [place] [address] [facility] Start: 05-07-2024 End: 05-07-2024 ambulatory 05/07/2024 10:30 AM EST Initial [facility] [address] [place] [id number] [facility] Start: 05-07-2024 End: 05-07-2024 Professional / ancillary services management 05/07/2024 10:00 AM EST Ancillary Procedure [facility] [address] [place] [id number] [facility] Start: 05-03-2024 End: 05-03-2025 ABO/Rh ABO/Rh Lab Routine Missed menses , unspecified gestational age Expected: 05/03/2024 (Approximate), Expires: 05/03/2025 [facility] Comment on above: Expected: 05/03/2024 (Approximate), Expires: 05/03/2025 Start: 05-03-2024 End: 05-03-2025 Blood type and Indirect antibody screen panel - Blood Type and screen Lab Routine Missed menses , unspecified gestational age Expected: 05/03/2024 (Approximate), Expires: 05/03/2025 [facility] Work Phone: Comment on above: Expected: 05/03/2024 (Approximate), Expires: 05/03/2025 Start: 05-03-2024 End: 05-03-2025 Drugs of abuse panel - Urine by Screen method Rapid drug screen, urine Lab Routine , unspecified gestational age Encounter for supervision of normal first in first trimester Expected: 05/03/2024 (Approximate), Expires: 05/03/2025 [facility] Comment on above: Expected: 05/03/2024 (Approximate), Expires: 05/03/2025 Start: 05-03-2024 End: 05-03-2025 US Pelvis transvaginal US OB transvaginal Imaging Routine Missed menses Expected: 05/03/2024 (Approximate), Expires: 05/03/2025 [facility] Comment on above: Expected: 05/03/2024 (Approximate), Expires: 05/03/2025 Start: 05-03-2024 End: 05-03-2024 ambulatory 05/03/2024 11:00 AM EST Initial [facility] [address] [place] [id number] [facility] Start: 05-03-2024 End: 05-03-2024 Professional / ancillary services management 05/03/2024 10:30 AM EST Ancillary Procedure [facility] [address] [place] [id number] [facility] Start: 01-25-2024 Influenza vaccination Influenza Vacc ine (#1) [facility] Start: 09-18-2023 [facility] Start: 01-24-2023 Influenza vaccination Influenza Vacc ine (#1) [facility] Bacteria identified in Urine by Culture Urine culture Microbiology Routine Missed menses Ordered: 05/03/2024 [facility] Comment on above: Ordered: 05/03/2024 CBC W Auto Different ial panel - Blood CBC and differential Lab Routine Missed menses , unspecified gestational age Ordered: 05/03/2024 [facility] Comment on above: Ordered: 05/03/2024 Hemoglobin A1c/Hemoglobin.total in Blood Hemoglobin A1c Lab Routine Missed menses , unspecified gestational age Ordered: 05/03/2024 [facility] Comment on above: Ordered: 05/03/2024 Hepatitis B virus surface Ag [Presence] in Serum or Plasma by Immunoassay Hepatitis B surface antigen Lab Routine Missed menses , unspecified gestational age Ordered: 05/03/2024 [facility] Comment on above: Ordered: 05/03/2024 Hepatitis C virus Ab [Presence] in Serum or Plasma by Immunoassay Hepatitis C antibody Lab Routine Missed menses , unspecified gestational age Ordered: 05/03/2024 [facility] Comment on above: Ordered: 05/03/2024 HIV-1/HIV-2 antigen/antibody combination immunoassay HIV-1 and HIV-2 antibodies Lab Routine Missed menses , unspecified gestational age Ordered: 05/03/2024 [facility] Comment on above: Ordered: 05/03/2024 Reagin Ab [Presence] in Serum by RPR RPR Lab Routine Missed menses , unspecified gestational age Ordered: 05/03/2024 [facility] Comment on above: Ordered: 05/03/2024 Rubella antibody, IgG Rubella an tibody, IgG Lab Routine Missed menses , unspecified gestational age Ordered: 05/03/2024 [facility] Comment on above: Ordered: 05/03/2024 Immunizations Immunization Date Immunization Notes Care Provider [facility] 09-18-2023 influenza virus vaccine, unspecified formulation Arpita GARDNER Work Phone: [facility] 03-20-2021 COVID-19 mRNA-1273 (Moderna) DO Urban Max Work Phone: [facility] 02-27-2021 influenza, seasonal, injectable [facility] Other [facility] 06-20-2020 COVID-19 mRNA-1273 (Moderna) DO Urban Max Work Phone: [facility] 05-23-2020 COVID-19 mRNA-1273 (Moderna) DO Urban Max Work Phone: [facility] 02-29-2020 influenza, injectable, quadrivalent, contains preservative [facility] Other [employer] Other 02-29-2020 influenza, injectable, quadrivalent, preservative free DO Urban Max Work Phone: [facility] 02-29-2020 influenza virus vaccine, unspecified formulation Arpita GARDNER Work Phone: [facility] 02-07-2020 influenza, injectable, quadrivalent, contains preservative Patient Objection Urban Max Other [employer] Other NEGATED: Highlighted row has not occurred!02-07-2020 influenza, injectable, quadrivalent, contains preservative Patient Objection Georgie Disla Other [employer] [employer] Other Payers Date Payer Category Payer Self-pay [id number] [phone] [id number] 2023 Medicaid [id number] 2023 Private Health Insurance [facility] MEDICAID [id number] 2023 Medicaid [id number] [address] HE[employer] DES[employer] PLUS [id number] 2022-Present [address] [place] [address] [id number] 2022 Unknown [id number] 1994 Unknown [id number] [id number]. 593 1994 Unknown [id number] 2.16.840.1.137240.3.579.2. 1259 1994 Unknown [id number] 2.16.840.1.885863.3.579.2. 1259 1994 Unknown [id number] 2.16.840.1.425078.3.579.2. 1259 1994 Unknown [id number] 2.16.840.1.851518.3.579.2. 1259 1994 Unknown [id number] 2.16.840.1.703157.3.579.2. 1259 1994 Unknown [id number] 2.16.840.1.991673.3.579.2. 1259 1994 Unknown [id number] 2.16.840.1.206280.3.579.2. 1259 1994 Unknown [id number] 2.16.840.1.441476.3.579.2. 1259 1994 Unknown [id number] 2.16.840.1.391054.3.579.2. 1259 1994 Unknown [id number] 2.16.840.1.946852.3.579.2. 1259 1994 Unknown [id number] 2.16.840.1.353110.3.579.2. 1259 1959 Unknown [id number] Unknown [id number]. 531 Social History Date Type Detail Facility Unknown if ever smoked [employer] Other Start: 12-03-2022 End: 10-15-2023 Sex Assigned At [facility] [employer] Other Start: 02-23-2018 End: 12-01-2022 Tobacco smoking [...] Start: 1995 Sex Assigned At Female [facility] Clinical Notes 03-05-2021 to 05-03-2024 Katerina Escobar LPN - 05/03/2024 9:30 AM KENDRA Bhatti - 01/13/2024 1:30 PM KENDRA Cisneros - 07/08/2023 1:30 PM EST Note Date & Type Note Facility 05-03-2024 History of Presen t illness Narrative Reason for Appointment: Patient ID: Griselda Quintana is a 29 y.o. female who presents for Amenorrhea Patient presents today for a Nurse OB Intake appointment. Patient is 9w3d with a Estimated Date of Delivery: 12/03/24 OB History Para Term AB Living 4 3 1 3 SAB IAB Ectopic Multiple Live Births 1 # Outcome Date GA Lbr Yandel/2nd Weight Sex Type Anes PTL Lv 4 Current 3 Term 08/04/23 38w3d M CS-LTranv ONI 2 Para 07/31/16 8 lb 2 oz M CS-LTranv 1 Para 09/20/09 7 lb 14 oz F CS-LTranv Current Medications: has a current medication list which includes the following prescription(s): vitamin. Medical History: Active Ambulatory Problems Diagnosis Date Noted Abnormal results of liver function studies 11/18/2022 Abnormal uterine bleeding 11/18/2022 Depression ([facility]) 11/18/2022 Generalized anxiety disorder ([facility]) 11/18/2022 Malodorous urine 11/18/2022 Obesity 11/18/2022 Vitreous [...] SECTION, LOW TRANSVERSE 08/2009 SECTION, LOW TRANSVERSE 2016 SECTION, LOW TRANSVERSE 08/04/2023 PAP SMEAR 12/14/2019 negative TONSILLECTOMY 05/12/2012 Chronic Tonsillitis No Known Allergies Vitals: Estimated body mass index is 33.56 kg/m as calculated from the following: Height as of 11/18/22: 5' 8.5 . Weight as of 01/13/24: 224 lb. BP: Patient's last menstrual period was 02/27/2024. Assessment/Plan Diagnoses and all orders for this visit: Missed menses - Type and screen; Future - ABO/Rh; Future - CBC and differential - Hemoglobin A1c - RPR - Rubella antibody, IgG - Hepatitis B surface antigen - Hepatitis C antibody - HIV-1 and HIV-2 antibodies - Urine culture - US OB transvaginal; Future - POCT , urine manually resulted - POCT urinalysis dipstick manually resulted , unspecified gestational age - Type and screen; Future - ABO/Rh; Future - CBC and differential - Hemoglobin A1c - RPR - Rubella antibody, IgG - Hepatitis B surface antigen - Hepatitis C antibody - HIV-1 and HIV-2 antibodies - Rapid drug screen, urine; Future Encounter for supervision of normal first in first trimester - Rapid drug screen, urine; Future Nurse Note: OB Intake: Patient presents today for first OB visit. Patients history has been reviewed in great detail including any potential risks. Patient signed consent forms and patient desires testing in both trimesters. Patient currently has no complaints and has been advised to drink 6-8 glasses of water a day, eat no raw or undercooked meat, and stay away from [facility]. Patient has also been advised to not change litter boxes and eat 6 small meals a day. Patient has been consulted regarding the do's and don'ts of . Patient was given labs and all questions and concerns were answered. Follow Up: Patient is to return in 4 weeks for routine OB appointment. Follow Up: Patient is to have labs drawn at directed and return to office for initial OB appointment with provider. Patient may call office as needed with any concerns or questions. Nurse Visit Completed by: Katerina Escobar LPN documented in this encounter [facility] 01-13-2024 History of Presen t illness Narrative Reason for Appointment: Patient ID: Griselda Quintana is a 28 y.o. female who presents for Weight Management (Adipex #5) Patient presents today via telephone call for a telehealth appointment. Patients Phone #: [phone] (mobile) Current Medications: has a current medication list which includes the following prescription(s): phentermine, phentermine, phentermine, and vitamin. Medical History: Active Ambulatory Problems Diagnosis Date [...] SECTION, LOW TRANSVERSE 08/2009 SECTION, LOW TRANSVERSE 2016 SECTION, LOW TRANSVERSE 08/04/2023 PAP SMEAR 12/14/2019 negative TONSILLECTOMY 05/12/2012 Chronic Tonsillitis No Known Allergies Vitals: Estimated body mass index is 33.56 kg/m as calculated from the following: Height as of 11/18/22: 5' 8.5 . Weight as of this encounter: 224 lb. BP: 116/74 No LMP recorded. Assessment/Plan Encounter Diagnoses Name Primary? Weight gain Encounter for weight management Today's telehealth visit consisted of spending 5 minutes talking to patient on the phone.pt has been taking adipex and continues to lose weight with diet and exercise. Pt will be given refill and follow up in office in 3 mo for blood pressure and weight. Documented by KENDRA Palencia on behalf of: KENDRA Palencia documented in this encounter [facility] 07-08-2023 History of Presen t illness Narrative [...] 11/18/2022 Depression (CMS/HCC) 11/18/2022 Generalized anxiety disorder ([facility]/HCC) 11/18/2022 Malodorous urine 11/18/2022 Obesity 11/18/2022 Vitreous [...] of: KENDRA Palencia documented in this encounter [facility] 08-21-2022 Evaluation note Encounter Date Diagnosis Assessment Notes Jul, Acute non-recurrent frontal sinusitis (ICD-10 - J01.10) [facility] Other 03-14-2023 Evaluation note* Encounter Date Diagnosis Assessment Notes Treatment Notes Treatment Clinical Notes Jul, Dysuria (ICD-10 - R30.0) [facility] Other 11-01-2022 Evaluation note* Encounter Date Diagnosis Assessment Notes Treatment Notes Treatment Clinical Notes Mar, Anxiety (ICD-10 - F41.9) [facility] Other 10-07-2022 Evaluation note* Encounter Date Diagnosis Assessment Notes Treatment Notes Treatment Clinical Notes Feb, Encntr for general adult medical exam w/o abnormal findings (ICD-10 - Z00.00) Feb, Other No change today...Continue as is...FU 6 months.... [facility] Other 09-21-2022 Evaluation note* Encounter Date Diagnosis Assessment Notes Treatment Notes Treatment Clinical Notes Jan, Contact with and (suspected) exposure to other viral communicable diseases (ICD-10 - Z20.828) [facility] Other 09-19-2022 Evaluation note* Encounter Date Diagnosis Assessment Notes Treatment Notes Treatment Clinical Notes Jan, Contact with and (suspected) exposure to other viral communicable diseases (ICD-10 - Z20.828) [facility] Other 08-26-2022 Evaluation note* Encounter Date Diagnosis Assessment Notes Treatment Notes Treatment Clinical Notes Dec, Anxiety (ICD-10 - F41.9) E Rx sent. Lengthy discussion with patient that I think we need to try something than just a straight SSRI. We will see patient back in review. We talked about potential side effects as well as outcomes. She will call with any concerns. [facility] Other 08-20-2022 Evaluation note* Encounter Date Diagnosis Assessment Notes Treatment Notes Treatment Clinical Notes Dec, Contact with and (suspected) exposure to other viral communicable diseases (ICD-10 - Z20.828) [facility] Other 10-11-2021 Evaluation note* Encounter Date Diagnosis Assessment Notes Treatment Notes Treatment Clinical Notes Feb, Encntr for general adult medical exam w/o abnormal findings (ICD-10 - Z00.00) Feb, Other No change today...Continue as is...FU PRN/Yearly... [facility] Other Evaluation noteNo InformationNort [facility] Other Evaluation note* Diagnosis Third trimester state, incidental [facility] Work Phone: Evaluation note* Diagnosis Missed menses , unspecified gestational age Encounter for supervision of normal first in first trimester [facility] Diagnosis Weight gain Other symptoms concerning nutrition, metabolism, and development Encounter for weight management [facility] N[facility] - Reported* Type Description Date Medical History Hx of MRSA Medical History anxiety Surgical History tonsillectomy and adenoidectomy 2012 Surgical History c-sections 2009 and 2017 Hospitalization History C Sections [facility] Other Summary Purpose Family History No Family History Records FoundNo Family History Records FoundNo Family History Records Found Advance Directives Advance Directive Response Recorded Date/ Time Advance Directives No April 03, 2018 12:04pm Chief Complaint and Reason for Visit [place] [facility] [place] Additional Source Comments INFORMATION SOURCE (unrecogn ized section and content) DATE CREATED AUTHOR 12/19/2020 [facility] DATE CREATED AUTHOR AUTHOR'S ORGANIZ ATION 09/22/2023 [facility] DATE CREATED AUTHOR AUTHOR'S ORGANIZ ATION 05/06/2024 [facility] EPIC REASON FOR VISIT (unrecogniz ed section and content) Reason Comments Routine Visit Reason Comments Amenorrhea Reason Comments Weight Management Adipex #5 Care Teams (unrecognized sec tion and content) 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 Relationship Specialty Start Date End Date Urban Santana MD [address] [phone] PCP - General Family Medicine 11/18/22 Team [...] September 18, 2023 End: September 18, 2023 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 Relationship Specialty Start Date End Date Urban Santana MD [address] [phone] PCP - General Family Medicine 11/18/22 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 Relationship Specialty Start Date End Date Urban Santana MD [address] [phone] PCP - General Family Medicine 11/18/22 Hair 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 [facility]. provides no warranty or guarantee of the accuracy or completeness of information in this document.
[2024-05-21 12:21] LABS: Basophils Percent Auto 0.3 % (0.2-2.0); Eosinophils Absolute Auto 0.1 10^3/uL (0.0-0.7); Eosinophils Percent Auto 1.2 % (0.9-7.0); Hematocrit 37.3 % (36.0-48.0); Hemoglobin 12.5 g/dL (12.0-16.0); Immature Granulocytes Abs Auto 0.02 10^3/uL (0.00-0.03); Immature Granulocytes Pct Auto 0.3 % (0.0-0.5); Lymphocytes Absolute Auto 1.9 10^3/uL (1.2-3.8); Lymphocytes Percent Auto 24.2 % (20.5-60.0); Mean Corpuscular HGB Conc 33.5 g/dL (29.9-35.2); Mean Corpuscular Hemoglobin 28.7 pg (26.7-34.0); Mean Corpuscular Volume 85.6 fL (81.0-99.0); Mean Platelet Volume 9.2 fL (9.5-13.5); Monocytes Absolute Auto 0.5 10^3/uL (0.3-0.8); Monocytes Percent Auto 5.9 % (1.7-12.0); Neutrophils Absolute Auto 5.3 10^3/uL (1.4-6.5); Neutrophils Percent Auto 68.1 % (43.0-75.0); Platelet Count 233 10^3/uL (150-450); Red Blood Count 4.36 10^6/uL (4.20-5.40); Red Cell Distribution Width 12.8 % (11.0-15.0); White Blood Count 7.8 10^3/uL (4.0-11.0)
[2024-05-21 12:24] LABS: BOX Test Reference Lab UNITY; BOX Test Sent Out Y
[2024-05-21 12:24] LABS: BOX Test Reference Lab FIRELANDS
[2024-05-21 12:38] LABS: Cannabinoid Screen Urine NEGATIVE (NEGATIVE); Cocaine Screen Urine NEGATIVE (NEGATIVE); Methamphetamines Screen Urine NEGATIVE (NEGATIVE); Opiate Screen Urine NEGATIVE (NEGATIVE); Phencyclidine Screen Urine NEGATIVE (NEGATIVE)
[2024-05-21 12:39] LABS: Amphetamine Screen Urine NEGATIVE (NEGATIVE); Barbiturates Screen Urine NEGATIVE (NEGATIVE); Benzodiazepines Screen Urine NEGATIVE (NEGATIVE); Buprenorphine Screen Urine NEGATIVE (NEGATIVE); Methadone Screen Urine NEGATIVE (NEGATIVE); Oxycodone Screen Urine NEGATIVE (NEGATIVE); Tricyclic Antidepressant Urine NEGATIVE (NEGATIVE)
[2024-05-21 12:45] LABS: Estimated Average Glucose 100 mg/dL; Glycohemoglobin A1C 5.1 % (4.5-6.2)
[2024-05-21 14:53] LABS: BOX Test Sent Out URINE
[2024-05-22 04:07] LABS: HBsAg Screen Negative (Negative); HCV Ab Non Reactive (Non Reactive); HIV Ab/p24 Ag Screen Non Reactive (Non Reactive)
[2024-05-22 07:07] LABS: Rubella Antibodies, IgG 2.97 index (Immune >0.99)
[2024-05-22 09:07] LABS: Rapid Plasma Reagin, Quant Non Reactive titer (NonRea<1:1)
== END 2024-05-21 11:49 | disposition home or self-care (01) ==
LOC: LAB 11:49
PROVIDERS: PCP Family Medicine; Visit Provider Obstetrics & Gynecology
DX: Z34.01 Encounter for supervision of normal first pregnancy, first trimester (principal); Z36.0 Encounter for antenatal screening for chromosomal anomalies; N92.6 Irregular menstruation, unspecified
CPT/HCPCS: 36415; 80307; 83036; 85025; 86592; 86762; 86803; 86850; 86900; 86901; 87086; 87340; 87389

== ENCOUNTER 2024-05-24 12:46 | Outpatient (OUT) | payer OTHER, SELFPAY ==
--- NOTE | 2024-05-24 12:50 | US_ITS ---
The [address] [address] Patient Name: JARVIS MACEDO MRN: [id number] date: 1995 Sex: F Assigned Patient Location: US Current Patient Location: US Accession/Order Number: [id number] Exam Date: 05/24/2024 12:51 Report Date: 05/24/2024 14:22 At the request of: WILL GUSMAN Procedure: US OB follow up EXAMINATION: US OB follow up HISTORY: With Uncertain Viability, Subchronic Hematoma COMPARISON: No relevant comparison available. FINDINGS: GESTATIONAL SAC: Present and normal appearing. YOLK SAC: Present and normal appearing. POLE: Present and normal appearing. CARDIAC: 152 bpm UTERUS: Fundal subchorionic hematoma, 8.3 x 3.9 x 2.7 cm OVARIES: Right: Not evaluated. Left: Not evaluated. CUL-DE-SAC: Normal. OTHER: None. AGE BY LMP: 12 weeks 3 days TONJA BY LMP: 12/03/2024 AGE BY US CRL: 12 weeks 2 days TONJA BY US CRL: 12/04/2024 US/US OB follow up IMPRESSION: 1. Single live intrauterine . 2. Persistence subchorionic hematoma versus mass. No convincing significant change. Electronically authenticated by: SELENA ZUÑIGA Date: 05/24/2024 14:22
--- OUTSIDE RECORDS SUMMARY | 2024-05-24 13:06 | XMS_ITS | CCD ---
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 Name Role Phone TARYN, DR GA Primary Care Unavailable MAGUE, DR MAUDE Pathak Admitting Unavailchristiana BOWSER, DR MAUDE Pathak Consulting Unavailabl e MAGUE, DR MAUDE Pathak Attending UnavailJackie Morrow Consulting Unavailable Urban Santana Unavailable Georgie Disla Unavailable Dontrell Gallegos Unavailable Susanne Huitron Unavailable Urban Santana MD Primary Care Provider [phone] DO Urban Santana Primary Care Provider DO Tashi Tom Jr Attending Provider UZMA, ARPITA Attending Unavailable UZMA, ARPITA Attending Unavailable UZMA, ARPITA Attending Unavailable UZMA, ARPITA Attending Unavailable TALITA GODINEZ Attending Unavailable UZMA, ARPITA Attending Unavailable UZMA, RAPITA Attending Unavailable UZMA, ARPITA Attending Unavailable UZMA, ARPITA Attending Unavailable UZMA, ARPITA Attending Unavailable Urban Santana Primary Care Unavailable Talita Godinez Admitting Unavailable Talita Godinez Attending Unavailable Urban Santana Primary Care Unavailable Tashi Tom Jr Attending Unavailable Tashi Tom Jr Admitting Unavailable Medications Current Medications Medication Drug Class(es) Dates Sig (Normalized) Sig (Original) amoxicillin 500 mg oral tablet (4 sources) Penicillin-class Antibacterial Start: 07-09-2022 take 1 tablet by mouth every twelve hours Amoxicillin 500 MG 1 capsule Orally Twice a day for 10 days 14 Jun, 2022 Active amoxicillin 500 mg / clavulanate 125 mg oral tablet (2 sources) Penicillin-class Antibacterial Start: 08-21-2022 take 1 tablet by mouth twice daily Augmentin 500-125 MG 1 tablet Orally TWICE DAILY for 7 days Jul, Active azithromycin 250 mg oral tablet (1 source) Macrolide Antimicrobial Start: 05-04-2024 azithromycin (Zithromax Z-Ry) 250 MG tablet Indications: URI, acute As directed 6 tablet 05/04/2024 Active citalopram 20 mg oral tablet (2 [...] Active Start: 01-18-2022 take [address] capsule [address] [facility] every twenty-four hours DULoxetine HCl 20 MG [...] Active vitamin (Prenatabs Rx) 29-1 MG tablet (11 sources) Start: 2023 take 1 tablet by [...] morning. 30 tablet 11 01/20/2023 01/20/2024 Active promethazine hydrochloride 12.5 mg oral tablet (1 source) Phenothiazine Start: 05-11-2024 End: 08-09-2024 take 1 tablet by mouth every six hours as needed for nausea and nausea, then take 1 tablet by mouth every six hours as needed for nausea and nausea promethazine (Phenergan) 12.5 MG tablet Indications: Nausea and vomiting in Take 1 tablet (12.5 mg) by mouth every 6 (six) hours if needed for nausea or vomiting Take 1 tablet by mouth every 6 hours as needed for nausea. 30 tablet 2 05/11/2024 08/09/2024 Active sertraline 50 mg oral tablet (2 [...] [Irregular menstruation, unspecified] 05-03-2024 Chronic Mood disorders (11 sources) Depressive disorder; Translations: [Depression] Onset: 11-18-2022 11-18-2022 Chronic Open wounds of extremities (4 sources) Laceration without foreign body of right forearm, initial encounter; Translations: [LACERATION W/O FB RT FORARM INITIAL] Onset: 12-16-2020 Episodic Other eye disorders (11 sources) Bilateral vitreous floaters; Translations: [Other vitreous opacities, bilateral] Onset: 11-18-2022 11-18-2022 Chronic Other female genital disorders (11 sources) Abnormal uterine bleeding; Translations: [Abnormal uterine and vaginal bleeding, unspecified] Onset: 11-18-2022 11-18-2022 Chronic Other nutritional; endocrine; and metabolic disorders (11 sources) Obesity; Translations: [Obesity, unspecified] Onset: 11-18-2022 [...] 01-13-2024 Episodic Genitourinary symptoms and ill-defined conditions (12 sources) Dysuria; Translations: [Malodorous urine] Onset: 11-18-2022 Episodic Joint disorders and dislocations; trauma-related (11 sources) Recurrent dislocation of shoulder region; Translations: [Recurrent dislocation, unspecified shoulder] Onset: 02-21-2009 12-03-2022 Episodic Other nutritional; endocrine; and metabolic disorders (2 sources) Weight gain; Translations: [Abnormal weight gain] 01-13-2024 Episodic Other screening for suspected conditions (not mental disorders or infectious disease) (11 sources) Liver function tests abnormal; Translations: [Abnormal results of liver function studies] Onset: 11-18-2022 11-18-2022 Episodic Results Test Name Value Interpretation Reference Range Facility ALL CBC WITH AUTO DIFFon BASOPHILS ABSOLUTE AUTO 0 N [facility] Basophils/100 WBC (Bld) 0.3 % 0.2 - 2.0 % [facility] Eosinophils/100 WBC (Bld) 1.2 % 0.9 - 7.0 % [facility] Erythrocyte distribution width (RBC) [Ratio] 12.8 % 11.0 - 15.0 % [facility] Hematocrit (Bld) [Volume fraction] 37.3 % 36.0 - 48.0 % [facility] Hemoglobin (Bld) [Mass/Vol] 12.5 g/dL 12.0 - 16.0 g/dL [facility] IMMATURE GRANULOCYTES ABS AUTO 0.02 [facility] Immature granulocytes/100 WBC (Bld) 0.3 % 0.0 - 0.5 % [facility] Interpretation and review of laboratory results Abnormal [facility] LYMPHOCYTES ABSOLUTE AUTO 1.9 [facility] Lymphocytes/100 WBC (Bld) 24.2 % 20.5 - 60.0 % [facility] MCH (RBC) [Entitic mass] 28.7 pg 26.7 - 34.0 pg [facility] MCHC (RBC) [Mass/Vol] 33.5 g/dL 29.9 - 35.2 g/dL [facility] MCV (RBC) [Entitic vol] 85.6 fL 81.0 - 99.0 fL [facility] MONOCYTES ABSOLUTE AUTO 0.5 N [facility] Monocytes/100 WBC (Bld) 5.9 % 1.7 - 12.0 % [facility] NEUTROPHILS ABSOLUTE AUTO 5.3 [facility] Neutrophils/100 WBC (Bld) 68.1 % 43.0 - 75.0 % [facility] Platelet mean volume (Bld) [Entitic vol] 9.2 fL Low 9.5 - 13.5 fL [facility] EO # 0.1 [facility] PLT 233 [facility] RBC 4.36 [facility] WBC 7.8 [facility] Urine Cultureon 05-21-2024 Bacteria identified Cx Nom (U) 10,000 colonies/ml mixed bacterial skin contaminants 1 Day PERFORMED BY: [facility] [address] [place] [address] PATHOLOGIST MANAGER DEVELOPMENT HIRO GILLETTE M.D. Normal [facility] Comment on above: Performed By: #### C UU #### [facility] [address] HCG ( test) Ql (U)o n 05-03-2024 Interpretation and review of laboratory results Abnormal [facility] Preg Test, Ur Positive Negative [facility] Urinalysis macro (dipstick) panel (U)on 05-03-2024 Bilirubin, UA Negative Negative - 4(70) +++ mg/dL [facility] Blood, UA Negative Negative - 50 Rodriguez/mcL [facility] Clarity, UA Clear [facility] Color, UA Yellow [facility] Glucose, UA Negative Negative - 1999(110) ++++ mg/dL [facility] Interpretation and review of laboratory results Normal [facility] Ketones, UA Negative Negative - 160(16) ++++ mg/dL [facility] Leukocytes, UA Negative Negative - 500+++ Dg/mcL [facility] Nitrite, UA Negative Negative - Positive [facility] pH, UA 6 5 - 9 [facility] Protein, UA Negative Negative - 1999(20) ++++ mg/dL [facility] Spec Grav, UA 1.01 1 - 1.03 [facility] Urobilinogen, UA 1.0 0.2 - 12 mg/dL [facility] PREG QUANT HCGon 024 HCG QUANTITATIVE 99630 mIU/mL [facility] Comment on above: 5-50 0.2-1 WEEK 50-500 1-2 WEEKS 100-5,000 2-3 WEEKS 500-10,000 3-4 WEEKS 1,000-50,000 4-5 WEEKS 10,000-100,000 5-6 WEEKS 15,000-200,000 6-8 WEEKS 10,000-100,000 2-[facility]ANT HCGon 024 HCG QUANTITATIVE 90605 mIU/mL [facility] Comment on above: 5-50 0.2-1 WEEK 50-500 1-2 WEEKS 100-5,000 2-3 WEEKS 500-10,000 3-4 WEEKS 1,000-50,000 4-5 WEEKS 10,000-100,000 5-6 WEEKS 15,000-200,000 6-8 WEEKS 10,000-100,000 2-3 [facility] PREG QUANT HCGon 024 HCG QUANTITATIVE 6694 mIU/mL [facility] Comment on above: 5-50 0.2-1 WEEK 50-500 1-2 WEEKS 100-5,000 2-3 WEEKS 500-10,000 3-4 WEEKS 1,000-50,000 4-5 WEEKS 10,000-100,000 5-6 WEEKS 15,000-200,000 6-8 WEEKS 10,000-100,000 [facility] 024 HCG QUANTITATIVE 3710 mIU/mL [facility] Comment on above: 5-50 0.2-1 WEEK 50-500 1-2 WEEKS 100-5,000 2-3 WEEKS 500-10,000 3-4 WEEKS 1,000-50,000 4-5 WEEKS 10,000-100,000 5-6 WEEKS 15,000-200,000 6-8 WEEKS 10,000-100,000 2[facility] Alanine aminotransferase [En zymatic activity/volume] in Serum or PlasmaOrdered By: Georgie Calvo on 09-18-2023 ALT [Catalytic activity/Vol] 23 U/L Normal 7-52 Comment on above: Performed By: #### N ICOTINE QUAL #### [facility] , #### CMP wRFX A1C, EBS LIPID #### [facility] [address] [place] [id number] [place] Albumin [Mass/volume] in Ser um or Plasma by Bromocresol green (BCG) dye binding methoOrdered By: Georgie Calvo on 09-18-2023 Albumin BCG dye [Mass/Vol] 4.7 g/dL 3.5-5.7 Alkaline phosphatase [Enzyma tic activity/volume] in Serum or PlasmaOrdered By: Georgie Calvo on 09-18-2023 ALP [Catalytic activity/Vol] 72 U/L Normal 34-104 Comment on above: Performed By: #### N ICOTINE QUAL #### [facility] , #### CMP wRFX A1C, EBS LIPID #### [facility] [address] [place] [id number] [place] Aspartate aminotransferase [ Enzymatic activity/volume] in Serum or PlasmaOrdered By: Georgie Calvo on 09-18-2023 AST [Catalytic activity/Vol] 26 U/L Normal 13-39 Comment on above: Performed By: #### N ICOTINE QUAL #### [facility] , #### CMP wRFX A1C, EBS LIPID #### [facility] [address] Bilirubin.total [Mass/volume ] in Serum or PlasmaOrdered By: Georgie Calvo on 09-18-2023 Bilirubin [Mass/Vol] 0.7 mg/dL Normal 0.3-1.0 [facility] Comment on above: Performed By: #### N ICOTINE QUAL #### [facility] , #### CMP wRFX A1C, EBS LIPID #### [facility] [address] [place] [address] CMP with reflex to A1Con Albumin [Mass/Vol] 4.7 g/dL Normal 3.5-5.7 [facility] Comment on above: Performed By: #### N ICOTINE QUAL #### [facility] , #### CMP wRFX A1C, EBS LIPID #### [facility] [address] [place] [address] [place] GFR/1.73 sq M.predicted MDRD (S/P/Bld) [Vol rate/Area] mL/min/{1.73_m2} Normal [facility] Comment on above: Performed By: #### N ICOTINE QUAL #### [facility] , #### CMP wRFX A1C, EBS LIPID #### [facility] [address] [place] [address] [place] Calcium [Mass/volume] in Ser um or PlasmaOrdered By: Georgie Calvo on 09-18-2023 Calcium [Mass/Vol] 10.1 mg/dL Normal 8.6-10.3 [facility] Comment on above: Performed By: #### N ICOTINE QUAL #### [facility] , #### CMP wRFX A1C, EBS LIPID #### [facility] [address] [place] [address] [place] Carbon dioxide, total [Moles /volume] in Serum or PlasmaOrdered By: Georgie Calvo on 09-18-2023 CO2 [Moles/Vol] 28.5 mmol/L Normal 21.0-31.0 [facility] Comment on above: Performed By: #### N ICOTINE QUAL #### [facility] , #### CMP wRFX A1C, EBS LIPID #### [facility] [address] [place] [address] [place] Chloride [Moles/volume] in S fabiana or PlasmaOrdered By: Georgie Calvo on 09-18-2023 Chloride [Moles/Vol] 101 mmol/L Normal 98-107 [facility] Comment on above: Performed By: #### N ICOTINE QUAL #### [facility] , #### CMP wRFX A1C, EBS LIPID #### [facility] [address] [place] [id number] [place] Cholesterol [Mass/volume] in Serum or PlasmaOrdered By: Georgie Calvo on 09-18-2023 Cholesterol [Mass/Vol] 239 mg/dL High 140-200 [facility] Comment on above: Chol less than 200 m g/dl low riskChol 201-239 mg/dl borderline riskChol 240 mg/dl and greater high risk Result Comment: Chol less than 200 mg/dl low risk Chol 201-239 mg/dl borderline risk Chol 240 mg/dl and greater high risk Performed By: #### N ICOTINE QUAL #### [facility] , #### CMP wRFX A1C, EBS LIPID #### [facility] [address] [place] [id number] [place] Cholesterol in LDL Calc [Mas s/Vol]Ordered By: Georgie Calvo on 09-18-2023 Cholesterol in LDL [Mass/Vol] 154 mg/dL 0-100 Comment on above: LDL ATP III CLASSIFI CATIONLDL less than 100 mg/dL OptimalLDL 100-129 mg/dL Near or above optimalLDL 130-159 mg/dL Borderline highLDL 160-189 mg/dL HighLDL greater than 189 mg/dL Very high Cholesterol in VLDL Calc [Ma ss/Vol]Ordered By: Georgie Calvo on 09-18-2023 Cholesterol in VLDL [Mass/Vol] 14 mg/dL Creatinine [Mass/volume] in Serum or PlasmaOrdered By: Georgie Calvo on 09-18-2023 Creatinine [Mass/Vol] 0.79 mg/dL Normal 0.60-1.20 [facility] Comment on above: Performed By: #### N ICOTINE QUAL #### [facility] , #### CMP wRFX A1C, EBS LIPID #### [facility] [address] [place] [address] [place] Glucose [Mass/volume] in Ser um or PlasmaOrdered By: Georgie Calvo on 09-18-2023 Glucose [Mass/Vol] 78 mg/dL Normal 70-100 [facility] Comment on above: Performed By: #### N ICOTINE QUAL #### [facility] , #### CMP wRFX A1C, EBS LIPID #### [facility] [address] [place] [id number] [place] Lipid Profileon 09-18-2023 LDL Cholesterol,Calculated 154 mg/dL High 0-100 [facility] Comment on above: Result Comment: LDL ATP III CLASSIFICATION LDL less than 100 mg/dL Optimal LDL 100-129 mg/dL Near or above optimal LDL 130-159 mg/dL Borderline high LDL 160-189 mg/dL High LDL greater than 189 mg/dL Very high Performed By: #### N ICOTINE QUAL #### [facility] , #### CMP wRFX A1C, EBS LIPID #### [facility] [address] [place] [id number] [place] Triglyceride w/Reflex 73 mg/dL Normal 0-149 [facility] Comment on above: [...] #### CMP wRFX A1C, EBS LIPID #### [facility] [address] [place] [address] VLDL CHOLESTEROL 14 mg/dL Normal [facility] Comment on above: Performed By: #### N ICOTINE QUAL #### [facility] , #### CMP wRFX A1C, EBS LIPID #### [facility] [address] [place] [address] [place] Nicotine Metabolite, Qualon 09-18-2023 Nicotine Metabolite Negative Normal Cutoff=25 [facility] Comment on above: Result Comment: Perf ormed at: - [facility] [address] [id number] Share Holder: Josh Ortez MD, Phone: [phone] PERFORMED BY: [place] [address] PATHOLOGIST MANAGER DEVELOPMENT ROBERT WEBB M.D. Performed By: #### N ICOTINE QUAL #### [facility] , #### CMP wRFX A1C, EBS LIPID #### [facility] [address] [place] [address] No Panel InformationOrdered By: Georgie Calvo on 09-18-2023 Estimated GFR (CKD-EPI) > 60.0 mL/Min Pharmacy Creatinine Clearance (Chem N/A Potassium [Moles/volume] in Serum or PlasmaOrdered By: Georgie Calvo on 09-18-2023 Potassium [Moles/Vol] 4.0 mmol/L Normal 3.5-5.1 [facility] Comment on above: Performed By: #### N ICOTINE QUAL #### [facility] , #### CMP wRFX A1C, EBS LIPID #### [facility] [address] [place] [address] [place] Protein [Mass/volume] in Ser um or PlasmaOrdered By: Georgie Calvo on 09-18-2023 Protein [Mass/Vol] 7.1 g/dL Normal 6.4-8.9 [facility] Comment on above: Performed By: #### N ICOTINE QUAL #### [facility] , #### CMP wRFX A1C, EBS LIPID #### [facility] [address] Serum globulin measurement b y calculation (mass/volume)Ordered By: Georgie Calvo on 09-18-2023 Globulin (S) [Mass/Vol] 2.4 g/dL Normal [facility] Comment on above: Performed By: #### N ICOTINE QUAL #### [facility] , #### CMP wRFX A1C, EBS LIPID #### [facility] [address] [place] [address] Serum or plasma albumin/glob ulin mass ratioOrdered By: Georgie Calvo on 09-18-2023 Albumin/Globulin [Mass ratio] 2.0 {ratio} Normal Comment on above: Performed By: #### N ICOTINE QUAL #### [facility] , #### CMP wRFX A1C, EBS LIPID #### [facility] [address] [place] [address] Serum or plasma anion gap de terminationOrdered By: Georgie Calvo on 09-18-2023 Anion gap [Moles/Vol] 12.5 mmol/L Normal 6.0-15.0 [facility] Comment on above: Performed By: #### N ICOTINE QUAL #### [facility] , #### CMP wRFX A1C, EBS LIPID #### [facility] [address] [place] [address] Serum or plasma high density lipoprotein (HDL) cholesterol measurementOrdered By: Georgie Calvo on 09-18-2023 Cholesterol in HDL [Mass/Vol] 70 mg/dL Normal 23-92 Comment on above: HDL CHOL ATP-III CLA SSIFICATION Cardiovascular RiskHDL > or equal to 60 mg/dL LOWHDL < 40 mg/dL HIGH Result Comment: HDL CHOL ATP-III CLASSIFICATION Cardiovascular Risk HDL > or equal to 60 mg/dL LOW HDL < 40 mg/dL HIGH Performed By: #### N ICOTINE QUAL #### [facility] , #### CMP wRFX A1C, EBS LIPID #### [facility] [address] Serum or plasma total choles terol/high density lipoprotein (HDL) cholesterol mass ratOrdered By: Georgie Calvo on 09-18-2023 Cholesterol.total/[place] sterol in HDL [Mass ratio] 3.4 {ratio} Normal <5.0 Comment on above: Result Comment: PERF ORMED BY: [place] [address] PATHOLOGIST MANAGER DEVELOPMENT ROBERT WEBB M.D. Performed By: #### N ICOTINE QUAL #### [facility] , #### CMP wRFX A1C, EBS LIPID #### [facility] [address] [place] [address] [place] Sodium [Moles/volume] in Ser um or PlasmaOrdered By: Georgie Calvo on 09-18-2023 Sodium [Moles/Vol] 138 mmol/L Normal 136-145 [facility] Comment on above: Performed By: #### N ICOTINE QUAL #### [facility] , #### CMP wRFX A1C, EBS LIPID #### [facility] [address] [place] [address] [place] Triglyceride [Mass/volume] i n Serum or PlasmaOrdered By: Georgie Calvo on 09-18-2023 Triglyceride [Mass/Vol] 73 mg/dL 0-149 [facility] Comment on above: TRIG ATP III CLASSIF ICATIONTRIG less than 150 mg/dL NormalTRIG 150-199 mg/dL Borderline highTRIG 200-500 mg/dL High TRIG greater than 500 mg/dL Very highStandard traceable to the Center for Disease Conrtrol and Prevention (CDC) test method. Urea nitrogen [Mass/volume] in Serum or PlasmaOrdered By: Georgie Calvo on 09-18-2023 Urea nitrogen [Mass/Vol] 14 mg/dL Normal 12-17 Comment on above: Performed By: #### N ICOTINE QUAL #### [facility] , #### CMP wRFX A1C, EBS LIPID #### [facility] [address] Basophils Auto (Bld) [#/Vol] on 08-05-2023 Basophils (Bld) [#/Vol] 0.0 10 3/uL 0.0-0.1 Basophils/100 WBC Auto (Bld) on 08-05-2023 Basophils/100 WBC (Bld) 0.2 % 0.2-2.0 [facility] Eosinophils/100 WBC Auto (Bl d)on 08-05-2023 Eosinophils/100 WBC (Bld) 0.1 % 0.9-7.0 Erythrocyte distribution wid th Auto (RBC) [Ratio]on 08-05-2023 Erythrocyte distribution width (RBC) [Ratio] 13.8 % 11.0-15.0 Hematocrit Auto (Bld) [Volum e fraction]on 08-05-2023 Hematocrit (Bld) [Volume fraction] 33.5 % 36.0-48.0 Hemoglobin [Mass/volume] in Bloodon 08-05-2023 Hemoglobin (Bld) [Mass/Vol] 10.7 g/dL 12.0-16.0 Laboratory - Hematology and Cell countson 08-05-2023 Immature granulocytes/100 WBC (Bld) 0.5 % 0.0-0.5 Leukocytes [#/volume] correc oneal for nucleated erythrocytes in Blood by Automated counon 08-05-2023 WBC corrected for nucl RBC Auto (Bld) [#/Vol] 19.3 10 3/uL 4.0-11.0 Lymphocytes Auto (Bld) [#/Vo l]on 08-05-2023 Lymphocytes (Bld) [#/Vol] 1.7 10 3/uL 1.2-3.8 Lymphocytes/100 WBC Auto (Bl d)on 08-05-2023 Lymphocytes/100 WBC (Bld) 9.0 % 20.5-60.0 MCH Auto (RBC) [Entitic mass ]on 08-05-2023 MCH (RBC) [Entitic mass] 27.9 pg 26.7-34.0 MCHC Auto (RBC) [Mass/Vol]on 08-05-2023 MCHC (RBC) [Mass/Vol] 31.9 g/dL 29.9-35.2 [facility] MCV Auto (RBC) [Entitic vol] on 08-05-2023 MCV (RBC) [Entitic vol] 87.2 fL 81.0-99.0 [facility] Monocytes Auto (Bld) [#/Vol] on 08-05-2023 Monocytes (Bld) [#/Vol] 0.5 10 3/uL 0.3-0.8 Monocytes/100 WBC Auto (Bld) on 08-05-2023 Monocytes/100 WBC (Bld) 2.8 % 1.7-12.0 [facility] Neutrophils Auto (Bld) [#/Vo l]on 08-05-2023 Neutrophils (Bld) [#/Vol] 16.9 10 3/uL 1.4-6.5 Neutrophils/100 WBC Auto (Bl d)on 08-05-2023 Neutrophils/100 WBC (Bld) 87.4 % 43.0-75.0 No Panel Informationon 08-04 Eosinophils # (Auto) 0.0 10 3/uL 0.0-0.7 [facility] Immature Granulocyte # (Auto) 0.09 10 3/uL 0.00-0.03 Platelet mean volume Auto (B ld) [Entitic vol]on 08-05-2023 Platelet mean volume (Bld) [Entitic vol] 10.4 fL 9.5-13.5 Platelets Auto (Bld) [#/Vol] on 08-05-2023 Platelets (Bld) [#/Vol] 199 10 3/uL 150-450 RBC Auto (Bld) [#/Vol]on RBC (Bld) [#/Vol] 3.84 10 6/uL 4.20-5.40 [facility] Basophils Auto (Bld) [#/Vol] on 08-04-2023 Basophils (Bld) [#/Vol] 0.0 10 3/uL 0.0-0.1 Basophils/100 WBC Auto (Bld) on 08-04-2023 Basophils/100 WBC (Bld) 0.2 % 0.2-2.0 [facility] Buprenorphine [Presence] in Urineon 08-04-2023 Buprenorphine Ql (U) Negative NEGATIVE [facility] Comment on above: DRUG CLASS TEST SYST EM CUT-OFF CONCENTRATIONS ARE ASFOLLOWS:AMP (Amphetamine): 500 ng/mLBAR (Barbiturates): 200 ng/mLBZO (Benzodiazepines): 150 ng/mLBUP (Buprenorphine): 10 ng/mLCOC (Cocaine): 150 ng/mLmAMP (Methamphetamine): 500 ng/mLMTD (Methadone): 200 ng/mLOPI (Opiates): 100 ng/mLOXY (Oxycodone): 100 ng/mLPCP (Phencyclidine): 25 ng/mLTHC (Cannabinoids): 50 ng/mLTCA (Trycyclic Antidepressants): 300 ng/mL Eosinophils/100 WBC Auto (Bl d)on 08-04-2023 Eosinophils/100 WBC (Bld) 0.4 % 0.9-7.0 Erythrocyte distribution wid th Auto (RBC) [Ratio]on 08-04-2023 Erythrocyte distribution width (RBC) [Ratio] 13.7 % 11.0-15.0 Hematocrit Auto (Bld) [Volum e fraction]on 08-04-2023 Hematocrit (Bld) [Volume fraction] 37.3 % 36.0-48.0 Hemoglobin [Mass/volume] in Bloodon 08-04-2023 Hemoglobin (Bld) [Mass/Vol] 12.1 g/dL 12.0-16.0 Laboratory - Drug toxicology on 08-04-2023 Amphetamines Ql (U) Negative NEGATIVE [facility] Benzodiazepines Ql (U) Negative NEGATIVE [facility] Cocaine Ql (U) Negative NEGATIVE Opiates Ql (U) Negative NEGATIVE Phencyclidine Ql (U) Negative NEGATIVE [facility] Laboratory - Hematology and Cell countson 08-04-2023 Immature granulocytes/100 WBC (Bld) 0.3 % 0.0-0.5 Leukocytes [#/volume] correc oneal for nucleated erythrocytes in Blood by Automated counon 08-04-2023 WBC corrected for nucl RBC Auto (Bld) [#/Vol] 11.9 10 3/uL 4.0-11.0 Lymphocytes Auto (Bld) [#/Vo l]on 08-04-2023 Lymphocytes (Bld) [#/Vol] 3.4 10 3/uL 1.2-3.8 Lymphocytes/100 WBC Auto (Bl d)on 08-04-2023 Lymphocytes/100 WBC (Bld) 28.8 % 20.5-60.0 MCH Auto (RBC) [Entitic mass ]on 08-04-2023 MCH (RBC) [Entitic mass] 27.8 pg 26.7-34.0 MCHC Auto (RBC) [Mass/Vol]on 08-04-2023 MCHC (RBC) [Mass/Vol] 32.4 g/dL 29.9-35.2 [facility] MCV Auto (RBC) [Entitic vol] on 08-04-2023 MCV (RBC) [Entitic vol] 85.6 fL 81.0-99.0 [facility] Methadone [Presence] in Urin e by Screen methodon 08-04-2023 Methadone Screen Ql (U) Negative NEGATIVE [facility] Monocytes Auto (Bld) [#/Vol] on 08-04-2023 Monocytes (Bld) [#/Vol] 0.5 10 3/uL 0.3-0.8 Monocytes/100 WBC Auto (Bld) on 08-04-2023 Monocytes/100 WBC (Bld) 4.6 % 1.7-12.0 [facility] Neutrophils Auto (Bld) [#/Vo l]on 08-04-2023 Neutrophils (Bld) [#/Vol] 7.8 10 3/uL 1.4-6.5 Neutrophils/100 WBC Auto (Bl d)on 08-04-2023 Neutrophils/100 WBC (Bld) 65.7 % 43.0-75.0 No Panel Informationon 08-03 Eosinophils # (Auto) 0.1 10 3/uL 0.0-0.7 [facility] Immature Granulocyte # (Auto) 0.04 10 3/uL 0.00-0.03 Urine Barbiturates Screen Negative NEGATIVE Urine Marijuana (THC) Screen Negative NEGATIVE Urine Methamphetamines Screen Negative NEGATIVE Platelet mean volume Auto (B ld) [Entitic vol]on 08-04-2023 Platelet mean volume (Bld) [Entitic vol] 10.0 fL 9.5-13.5 Platelets Auto (Bld) [#/Vol] on 08-04-2023 Platelets (Bld) [#/Vol] 228 10 3/uL 150-450 RBC Auto (Bld) [#/Vol]on RBC (Bld) [#/Vol] 4.36 10 6/uL 4.20-5.40 [facility] Urine tricyclic antidepressa nt measurementon 08-04-2023 Tricyclic antidepressants (U) [Mass/Vol] Negative NEGATIVE oxyCODONE+oxyMORphone [Prese nce] in Urine by Screen methodon 08-04-2023 oxyCODONE+oxyMORphone Screen Ql (U) Negative NEGATIVE Basophils Auto (Bld) [#/Vol] on 07-21-2023 Basophils (Bld) [#/Vol] 0.0 10 3/uL 0.0-0.1 Basophils/100 WBC Auto (Bld) on 07-21-2023 Basophils/100 WBC (Bld) 0.3 % 0.2-2.0 [facility] Eosinophils/100 WBC Auto (Bl d)on 07-21-2023 Eosinophils/100 WBC (Bld) 0.6 % 0.9-7.0 Erythrocyte distribution wid th Auto (RBC) [Ratio]on 07-21-2023 Erythrocyte distribution width (RBC) [Ratio] 13.4 % 11.0-15.0 Hematocrit Auto (Bld) [Volum e fraction]on 07-21-2023 Hematocrit (Bld) [Volume fraction] 38.1 % 36.0-48.0 Hemoglobin [Mass/volume] in Bloodon 07-21-2023 Hemoglobin (Bld) [Mass/Vol] 12.3 g/dL 12.0-16.0 Laboratory - Hematology and Cell countson 07-21-2023 Immature granulocytes/100 WBC (Bld) 0.3 % 0.0-0.5 Leukocytes [#/volume] correc oneal for nucleated erythrocytes in Blood by Automated counon 07-21-2023 WBC corrected for nucl RBC Auto (Bld) [#/Vol] 10.7 10 3/uL 4.0-11.0 Lymphocytes Auto (Bld) [#/Vo l]on 07-21-2023 Lymphocytes (Bld) [#/Vol] 2.8 10 3/uL 1.2-3.8 Lymphocytes/100 WBC Auto (Bl d)on 07-21-2023 Lymphocytes/100 WBC (Bld) 25.8 % 20.5-60.0 MCH Auto (RBC) [Entitic mass ]on 07-21-2023 MCH (RBC) [Entitic mass] 27.9 pg 26.7-34.0 MCHC Auto (RBC) [Mass/Vol]on 07-21-2023 MCHC (RBC) [Mass/Vol] 32.3 g/dL 29.9-35.2 [facility] MCV Auto (RBC) [Entitic vol] on 07-21-2023 MCV (RBC) [Entitic vol] 86.4 fL 81.0-99.0 [facility] Monocytes Auto (Bld) [#/Vol] on 07-21-2023 Monocytes (Bld) [#/Vol] 0.4 10 3/uL 0.3-0.8 Monocytes/100 WBC Auto (Bld) on 07-21-2023 Monocytes/100 WBC (Bld) 4.1 % 1.7-12.0 [facility] Neutrophils Auto (Bld) [#/Vo l]on 07-21-2023 Neutrophils (Bld) [#/Vol] 7.4 10 3/uL 1.4-6.5 Neutrophils/100 WBC Auto (Bl d)on 07-21-2023 Neutrophils/100 WBC (Bld) 68.9 % 43.0-75.0 No Panel Informationon 07-21 Eosinophils # (Auto) 0.1 10 3/uL 0.0-0.7 [facility] Immature Granulocyte # (Auto) 0.03 10 3/uL 0.00-0.03 Platelet mean volume Auto (B ld) [Entitic vol]on 07-21-2023 Platelet mean volume (Bld) [Entitic vol] 9.8 fL 9.5-13.5 Platelets Auto (Bld) [#/Vol] on 07-21-2023 Platelets (Bld) [#/Vol] 220 10 3/uL 150-450 RBC Auto (Bld) [#/Vol]on RBC (Bld) [#/Vol] 4.41 10 6/uL 4.20-5.40 [facility] Urinalysis macro (dipstick) panel (U)on 07-08-2023 Bilirubin, UA Negative Negative - 4(70) +++ mg/dL [facility] Blood, UA Negative Negative - 50 Rodriguez/mcL [facility] Clarity, UA Clear [facility] Color, UA Yellow [facility] Glucose, UA Negative Negative - 2000(110) ++++ mg/dL [facility] Interpretation and review of laboratory results Abnormal [facility] Ketones, UA Negative Negative - 160(16) ++++ mg/dL [facility] Leukocytes, UA Positive Negative - 500+++ Dg/mcL [facility] Nitrite, UA Negative Negative - Positive [facility] pH, UA 5.5 5 - 9 [facility] Protein, UA Negative Negative - 2000(20) ++++ mg/dL [facility] Spec Grav, UA 1.015 1 - 1.03 [facility] Urobilinogen, UA 1.0 0.2 - 12 mg/dL [facility] Urine Cultureon 08-07-2022 Urine Culture >100,000 Present Other Urine Culture <16 Susceptible [employer] Other Urine Culture <8/4 Susceptible [employer] Other Urine Culture >16 Resistant Present Other Urine Culture <4 Susceptible [employer] Other Urine Culture <2 Susceptible [employer] Other Urine Culture <1 Susceptible [employer] Other Urine Culture <0.25 Susceptible [employer] Other Urine Culture <0.5 Susceptible [employer] Other Urine Culture >8 Resistant Present Other Urine Culture <32 Susceptible [employer] Other Urine Culture 4 Susceptible [employer] Other Urine Culture >2/38 Resistant Present Other SARS-CoV-2 (COVID-19) RNA NA A+probe Ql (Resp)on 02-13-2022 SARS-CoV-2 (COVID-19) RNA CLAY+probe Ql (Unsp spec) Positive Present Other SARS-CoV-2 (COVID-19) RNA NA A+probe Ql (Resp)on 02-11-2022 SARS-CoV-2 (COVID-19) RNA CLAY+probe Ql (Unsp spec) Negative Present Other SARS-CoV-2 (COVID-19) RNA NA A+probe Ql (Resp)on 01-12-2022 SARS-CoV-2 (COVID-19) RNA CLAY+probe Ql (Unsp spec) Negative Present Other XR FOREARM RT 2Von 1 XR [...] WILLETT Date: 2020-12-16 14:53 Normal [facility] Vital Signs Date Time Vital Sign Value Performing Clinician Facility 01-13-2024 13:38-0400 Body mass index (BMI) [Ratio] 33.56 kg/m2 Arpita GARDNER Work Phone: [facility] 01-13-2024 13:38-0400 Body weight 101.61 kg Arpita GARDNER Work Phone: [facility] 01-13-2024 13:38-0400 Diastolic blood pressure 74 mm[Hg] Arpita GARDNER Work Phone: [facility] 01-13-2024 13:38-0400 Systolic blood pressure 116 mm[Hg] Arpita GARDNER Work Phone: [facility] 07-08-2023 13:27-0500 Body mass index (BMI) [Ratio] 38.51 kg/m2 Arpita GARDNER Work Phone: [facility] 07-08-2023 13:27-0500 Body weight 116.57 kg Arpita GARDNER Work Phone: [facility] 07-08-2023 13:27-0500 Diastolic blood pressure 70 mm[Hg] Arpita GARDNER Work Phone: [facility] 07-08-2023 13:27-0500 Systolic blood pressure 112 mm[Hg] Arpita GARDNER Work Phone: [facility] 03-01-2022 09:00-0400 Body height 175.26 cm Urban [facility] Other Present Other 03-01-2022 09:00-0400 Body mass index (BMI) [Ratio] 33.81 kg/m2 Urban [facility] Other Present Other 03-01-2022 09:00-0400 Body temperature 97.9 [degF] Urban Max Other Present Other 03-01-2022 09:00-0400 Body weight 103.87 kg Urban Max Other Present Other 03-01-2022 09:00-0400 Diastolic blood pressure 80 mm[Hg] Urban Max Other Present Other 03-01-2022 09:00-0400 Respiratory rate 20 /min Urban Max Other Present Other 03-01-2022 09:00-0400 SaO2% (BldA) [Mass fraction] 97 % Urban Max Other Present Other 03-01-2022 09:00-0400 Systolic blood pressure 118 mm[Hg] Urban Max Other Present Other 01-18-2022 09:45-0400 Body height 175.26 cm Urban Max Other Present Other 01-18-2022 09:45-0400 Body mass index (BMI) [Ratio] 32.93 kg/m2 Urban Max Other Present Other 01-18-2022 09:45-0400 Body temperature 97.3 [degF] Urban Max Other Present Other 01-18-2022 09:45-0400 Body weight 101.15 kg Urban Max Other Present Other 01-18-2022 09:45-0400 Diastolic blood pressure 72 mm[Hg] Urban Max Other Present Other 01-18-2022 09:45-0400 Respiratory rate 20 /min Urban Max Other Present Other 01-18-2022 09:45-0400 SaO2% (BldA) [Mass fraction] 98 % Urban Max Other Present Other 01-18-2022 09:45-0400 Systolic blood pressure 112 mm[Hg] Urban Max Other Present Other 03-05-2021 16:15-0400 Body height 175.26 cm Urban Max Other Present Other 03-05-2021 16:15-0400 Body mass index (BMI) [Ratio] 35.14 kg/m2 Urban Max Other Present Other 03-05-2021 16:15-0400 Body weight 107.96 kg Urban Andrewsgles Other Present Other 03-05-2021 16:15-0400 Diastolic blood pressure 68 mm[Hg] Urban Max Other Present Other 03-05-2021 16:15-0400 Respiratory rate 20 /min Urban Max Other Present Other 03-05-2021 16:15-0400 SaO2% (BldA) [Mass fraction] 98 % Urban Max Other Present Other 03-05-2021 16:15-0400 Systolic blood pressure 110 mm[Hg] Urban Andrewsgles Other Present Other Encounters Encounter Date Encounter Type Care Provider Facility Start: 05-21-2024 End: 05-21-2024 ambulatory Urban Santana Facility: Start: 05-21-2024 End: 05-21-2024 Clinisync Result Encounter Talita Herbert DO Work Phone: [facility] Unsolicited Start: 05-21-2024 End: 05-21-2024 Clinisync Result Encounter Talita Herbert DO Work Phone: [facility] Unsolicited Start: 05-03-2024 End: 05-03-2024 ambulatory ARPITA GUSMAN Not Available Start: 05-03-2024 End: 05-03-2024 Office [...] management Start: 01-13-2024 End: 01-13-2024 ambulatory ARPITA GUSMAN Not Available Start: 10-15-2023 End: 10-15-2023 ambulatory ARPITA GUSMAN Not Available Start: 09-18-2023 End: 09-18-2023 Departed Referred DO Urban Max Work Phone: [facility] [address] Work Phone: Start: 09-18-2023 End: 09-18-2023 ambulatory DO Urban M. Max Work Phone: [facility] Work Phone: Start: 09-16-2023 End: 09-16-2023 ambulatory ARPITA UZMA Not Available Start: 08-12-2023 End: 08-12-2023 ambulatory ARPITA UZMA Not Available Start: 08-05-2023 Non-patient / Non-visit DO Urban Max Work Phone: [facility] Work Phone: Start: 08-04-2023 Non-patient / Non-visit DO Urban Max Work Phone: [facility] Work Phone: Start: 07-29-2023 End: 07-29-2023 ambulatory ARPITA UZMA Not Available Start: 07-22-2023 End: 07-22-2023 ambulatory TALITA HERBERT Not Available Start: 07-21-2023 Non-patient / Non-visit DO Urban Max Work Phone: [facility] Work Phone: Start: 07-08-2023 End: 07-08-2023 flow sheet Arpita Renton PA Work Phone: [facility] Comment on above: Third trimester preg opal Start: 07-08-2023 End: 07-08-2023 ambulatory ARPITA UZMA Not Available Start: 06-24-2023 End: 06-24-2023 ambulatory ARPITA UZMA Not Available Start: 06-10-2023 End: 06-10-2023 ambulatory ARPITA UZMA Not Available Start: 05-27-2023 End: 05-27-2023 ambulatory ARPITA UZMA Not Available Start: 09-10-2022 End: 09-10-2022 ambulatory Susanne Scally Other Present Other Start: 09-10-2022 Telephone encounter Susanne Perez located within [facility] Start: 08-21-2022 End: 08-21-2022 ambulatory Dontrell Rosy Other Present Other Start: 08-21-2022 Telephone encounter Dontrell Gallegos [facility] Start: 08-09-2022 End: 08-09-2022 ambulatory Urban Max Other Present Other Start: 08-09-2022 Telephone encounter Urban Max [facility] Start: 08-06-2022 End: 08-06-2022 ambulatory Urban Max Other Present Other Start: 08-06-2022 Telephone encounter Urban Max [facility] Start: 03-26-2022 End: 03-26-2022 ambulatory Urban Max Other Present Other Start: 03-26-2022 Telephone encounter Urban Max [facility] Start: 03-01-2022 End: 03-01-2022 ambulatory Urban Max Other Present Other Start: 03-01-2022 Encounter for genera l adult medical examination without abnormal findings Urban Max [facility] Start: 03-01-2022 Periodic preventive med est patient 18-39 yrs Urban Max [facility] Start: 02-13-2022 End: 02-13-2022 ambulatory Georgie Disla Other Present Other Start: 02-13-2022 Nursing evaluation o f patient and report Georgie Disla [facility] Start: 02-11-2022 End: 02-11-2022 ambulatory Georgie Disla Other Present Other Start: 02-11-2022 Nursing evaluation o f patient and report Georgie Disla [facility] Start: 01-18-2022 End: 01-18-2022 ambulatory Urbanjulito AndrewsMax Other Present Other Start: 01-18-2022 Office outpatient visit 15 minutes Urban Max [facility] Start: 01-12-2022 End: 01-12-2022 ambulatory Georgie Wademond Other Present Other Start: 01-12-2022 Nursing evaluation o f patient and report Georgie Dilsa [facility] Start: 03-05-2021 Encounter for genera l adult medical examination without abnormal findings Urban Max [facility] Start: 03-05-2021 Periodic preventive med est patient 18-39 yrs Urban Max [facility] Start: 12-16-2020 End: 12-16-[address] GA [facility] Facility: Procedures Date Procedure Procedure Detail Performing Clinician Start: 05-21-2024 ALL CBC WITH AUTO DIFF Talita Herbert DO Work Phone: Start: 05-03-2024 Urnls dip stick/tabl et rgnt [...] [Identifier] in Cervix by Cyto stain Talita Godinez DO Work Phone: Start: 08-07-2022 Piperacillin/tazobactam Urbanjulito Santana Other Plan of Treatment Date Care Activity Detail Author Start: 01-04-2028 Screening for malign ant neoplasm of cervix HPV/Cotest [facility] Start: 01-03-2026 Screening for malign ant neoplasm of cervix [facility] Start: 05-31-2024 End: 05-31-2024 Patient encounter procedure 05/31/2024 1:00 PM EST Routine [facility] [address] [place] [id number] Talita Godinez, DO [address] [place] [address] [facility] Start: 05-07-2024 End: 05-07-2024 ambulatory 05/07/2024 10:30 AM EST Initial [facility] [address] [place] [id number] [facility] Start: 05-07-2024 End: 05-07-2024 Professional / ancillary services management 05/07/2024 10:00 AM EST Ancillary Procedure [facility] [address] [place] [id number] [facility] Start: 05-03-2024 End: 05-03-2025 ABO/Rh ABO/Rh Lab Routine Missed menses , unspecified gestational age Expected: 05/03/2024 (Approximate), Expires: 05/03/2025 [facility] Comment on above: Expected: 05/03/2024 (Approximate), Expires: 05/03/2025 Start: 05-03-2024 End: 05-03-2025 Blood type and Indirect antibody screen panel - Blood Type and screen Lab Routine Missed menses , unspecified gestational age Expected: 05/03/2024 (Approximate), Expires: 05/03/2025 [facility] Work Phone: Comment on above: Expected: 05/03/2024 (Approximate), Expires: 05/03/2025 Start: 05-03-2024 End: 05-03-2025 Drugs of abuse panel - Urine by Screen method Rapid drug screen, urine Lab Routine , unspecified gestational age Encounter for supervision of normal first in first trimester Expected: 05/03/2024 (Approximate), Expires: 05/03/2025 [facility] Comment on above: Expected: 05/03/2024 (Approximate), Expires: 05/03/2025 Start: 05-03-2024 End: 05-03-2025 US Pelvis transvaginal US OB transvaginal Imaging Routine Missed menses Expected: 05/03/2024 (Approximate), Expires: 05/03/2025 [facility] Comment on above: Expected: 05/03/2024 (Approximate), Expires: 05/03/2025 Start: 05-03-2024 End: 05-03-2024 ambulatory 05/03/2024 11:00 AM EST Initial [facility] [address] [place] [address] [facility] Start: 05-03-2024 End: 05-03-2024 Professional / ancillary services management 05/03/2024 10:30 AM EST Ancillary Procedure [facility] [address] [place] [address] [place] [address] [facility] Start: 01-25-2024 Influenza vaccination Influenza Vacc ine (#1) [facility] Start: 09-18-2023 Start: 01-24-2023 Influenza vaccination Influenza Vacc ine (#1) [facility] Bacteria identified in Urine by Culture Urine culture Microbiology Routine Missed menses Ordered: 05/03/2024 [facility] Comment on above: Ordered: 05/03/2024 CBC W Auto Different ial panel - Blood CBC and differential Lab Routine Missed menses , unspecified gestational age Ordered: 05/03/2024 [facility] Comment on above: Ordered: 05/03/2024 Hemoglobin A1c/Hemoglobin.total in Blood Hemoglobin A1c Lab Routine Missed menses , unspecified gestational age Ordered: 05/03/2024 [facility] Comment on above: Ordered: 05/03/2024 Hepatitis B virus surface Ag [Presence] in Serum or Plasma by Immunoassay Hepatitis B surface antigen Lab Routine Missed menses , unspecified gestational age Ordered: 05/03/2024 [facility] Comment on above: Ordered: 05/03/2024 Hepatitis C virus Ab [Presence] in Serum or Plasma by Immunoassay Hepatitis C antibody Lab Routine Missed menses , unspecified gestational age Ordered: 05/03/2024 [facility] Comment on above: Ordered: 05/03/2024 HIV-1/HIV-2 antigen/antibody combination immunoassay HIV-1 and HIV-2 antibodies Lab Routine Missed menses , unspecified gestational age Ordered: 05/03/2024 [facility] Comment on above: Ordered: 05/03/2024 Reagin Ab [Presence] in Serum by RPR RPR Lab Routine Missed menses , unspecified gestational age Ordered: 05/03/2024 [facility] Comment on above: Ordered: 05/03/2024 Rubella antibody, IgG Rubella an tibody, IgG Lab Routine Missed menses , unspecified gestational age Ordered: 05/03/2024 [facility] Comment on above: Ordered: 05/03/2024 Immunizations Immunization Date Immunization Notes Care Provider Serjio [facility] 09-18-2023 influenza virus vaccine, unspecified formulation Arpita GARDNER Work Phone: [facility] 03-20-2021 COVID-19 mRNA-1273 (Moderna) DO Urban Max Work Phone: 02-27-2021 influenza, seasonal, injectable Urban [facility] Other 06-20-2020 COVID-19 mRNA-1273 (Moderna) DO Urban Max Work Phone: 05-23-2020 COVID-19 mRNA-1273 (Moderna) DO Urban Max Work Phone: 02-29-2020 influenza, injectable, quadrivalent, contains preservative Urban Max Other Present Other 02-29-2020 influenza, injectable, quadrivalent, preservative free DO Urban Max Work Phone: 02-29-2020 influenza virus vaccine, unspecified formulation Arpita GARDNER Work Phone: [facility] 02-07-2020 influenza, injectable, quadrivalent, contains preservative Patient Objection Urban Max Other Present Other NEGATED: Highlighted row has not occurred!02-07-2020 influenza, injectable, quadrivalent, contains preservative Patient Objection Georgie Nighat Other [employer] Payment Other Payers Date Payer Category Payer Self-pay [id number] [phone] [id number] 2023 Medicaid [id number] 2023 Private Health Insurance [facility] MEDICAID [id number] 2023 Medicaid [id number] [address] [employer] [id number] 2022-Present [address] [place] [address] [id number] 2022 Unknown [id number] 1994 Unknown [id number] [id number]. 593 1994 Unknown [id number] 2.16.840.1.799777.3.579.2. 1259 1994 Unknown [id number] 2.16.840.1.603239.3.579.2. 1259 1994 Unknown [id number] 2.16.840.1.918534.3.579.2. 1259 1994 Unknown [id number] 2.16.840.1.194904.3.579.2. 1259 1994 Unknown [id number] 2.16.840.1.002846.3.579.2. 1259 1994 Unknown [id number] 2.16.840.1.618509.3.579.2. 1259 1994 Unknown [id number] 2.16.840.1.943816.3.579.2. 1259 1994 Unknown [id number] 2.16.840.1.695646.3.579.2. 1259 1994 Unknown [id number] 2.16.840.1.970595.3.579.2. 1259 1994 Unknown [id number] 2.16.840.1.853329.3.579.2. 1259 1994 Unknown [id number] 2.16.840.1.761695.3.579.2. 1259 1959 Unknown [id number] Unknown [id number] 2.16.840.1.942327.3.579.2. 531 Unknown [id number] [id number]. 531 Social History Date Type Detail Facility Unknown if ever smoked Present Other Start: 12-03-2022 End: 10-15-2023 Sex Assigned At [employer] [facility] [employer] Other Start: 02-23-2018 End: 12-01-2022 Tobacco smoking status NHIS Never smoked tobacco [facility] Start: 07-08-2023 End: 05-03-2024 Alcohol intake Current drinker of alcohol (finding) [facility] Start: 12-03-2022 End: 10-15-2023 History of Social function [facility] Start: 12-01-2022 Alcohol Comment occasional [facility] Start: 11-22-2022 [facility] Start: 1995 Sex Assigned At Not on file [facility] Start: 1995 Sex Assigned At Female F [facility] Clinical Notes 03-05-2021 to 05-03-2024 Katerina Escobar [...] meat, and stay away from [facility]. Patient has also been advised to [...] Katerina Escobar LPN documented in this encounter [facility] 01-13-2024 History of Presen t illness Narrative Reason for Appointment: Patient ID: Griselda Quintana is a 28 y.o. female who presents for Weight Management (Adipex #5) Patient presents today via telephone call for a telehealth appointment. Patients Phone #: [phone] (mobile) Current Medications: has a current medication [...] KENDRA Palencia documented in this encounter [facility] 07-08-2023 History of Presen t illness Narrative [...] KENDRA Palencia documented in this encounter [facility] 08-21-2022 Evaluation note Encounter Date Diagnosis Assessment Notes Jul, Acute non-recurrent frontal sinusitis (ICD-10 - J01.10) Present Other 03-14-2023 Evaluation note* Encounter Date Diagnosis Assessment Notes Treatment Notes Treatment Clinical Notes Jul, Dysuria (ICD-10 - R30.0) Present Other 11-01-2022 Evaluation note* Encounter Date Diagnosis Assessment Notes Treatment Notes Treatment Clinical Notes Mar, Anxiety (ICD-10 - F41.9) Present Other 10-07-2022 Evaluation note* Encounter Date Diagnosis Assessment Notes Treatment Notes Treatment Clinical Notes Feb, Encntr for general adult medical exam w/o abnormal findings (ICD-10 - Z00.00) Feb, Other No change today...Continue as is...FU 6 months.... Present Other 09-21-2022 Evaluation note* Encounter Date Diagnosis Assessment Notes Treatment Notes Treatment Clinical Notes Jan, Contact with and (suspected) exposure to other viral communicable diseases (ICD-10 - Z20.828) Present Other 09-19-2022 Evaluation note* Encounter Date Diagnosis Assessment Notes Treatment Notes Treatment Clinical Notes Jan, Contact with and (suspected) exposure to other viral communicable diseases (ICD-10 - Z20.828) Present Other 08-26-2022 Evaluation note* Encounter Date Diagnosis Assessment Notes Treatment Notes Treatment Clinical Notes Dec, Anxiety (ICD-10 - F41.9) E Rx sent. Lengthy discussion with patient that I think we need to try something than just a straight SSRI. We will see patient back in review. We talked about potential side effects as well as outcomes. She will call with any concerns. Present Other 08-20-2022 Evaluation note* Encounter Date Diagnosis Assessment Notes Treatment Notes Treatment Clinical Notes Dec, Contact with and (suspected) exposure to other viral communicable diseases (ICD-10 - Z20.828) Present Other 10-11-2021 Evaluation note* Encounter Date Diagnosis Assessment Notes Treatment Notes Treatment Clinical Notes Feb, Encntr for general adult medical exam w/o abnormal findings (ICD-10 - Z00.00) Feb, Other No change today...Continue as is...FU PRN/Yearly... Present Other Evaluation noteNo InformationNort [employer] Other Evaluation note* Diagnosis Third trimester state, incidental documented in this [facility] noteNo assessment [facility] Phone: Evaluation note* Diagnosis [...] 2009 and 2017 Hospitalization History C Sections Present Other Summary Purpose Family History No Family [...] pital DATE CREATED AUTHOR AUTHOR'S ORGANIZ ATION 05/06/2024 [facility] EPIC DATE CREATED AUTHOR AUTHOR'S ORGANIZ ATION 05/23/2024 [facility] REASON FOR VISIT (unrecogniz ed section and content) Reason Comments Routine Visit Reason Comments Amenorrhea Reason Comments Weight Management Adipex #5 Care Teams (unrecognized sec tion and content) Air Support Operations Operator Relationship Specialty Start Date End Date Urban Santana MD [address] [facility] [address] [place] [phone] PCP - General Family Medicine 11/18/22 Team Status: Active Member Role Status Dates Urban Santana DO Primary Care Provider Active Team Status: Active Member Role Status Dates Urban Santana DO Primary Care Provid er, Attending Provider Active Start: July 21, 2023 Team Status: Active Member Role Status Dates Ubran Santana DO Primary Care Provid er, Attending [...] September 18, 2023 End: September 18, 2023 Air Support Operations Operator Relationship Specialty Start Date End Date Urban Santana MD [address] [facility] [address] [place] [phone] PCP - General Family Medicine 11/18/22 Air Support Operations Operator Relationship Specialty Start Date End Date Urban Santana MD [address] [facility] [address] [place] [phone] PCP - General Family Medicine 11/18/22 Air Support Operations Operator Relationship Specialty Start Date End Date Urban Santana MD [address] [phone] PCP - General [facility] 11/18/22 Air Support Operations Operator Relationship Specialty Start Date End Date Urban Santana MD [address] [phone] PCP - General Family Medicine 11/18/22 Air Support Operations Operator Relationship Specialty Start Date End Date Urban Santana MD [address] [phone] PCP - General [facility] 11/18/22 Air Support Operations Operator Relationship Specialty Start Date End Date Urban Santana MD [address] [phone] PCP - General Family [facility] 11/18/22 Goals (unrecognized section and content) Goals [...] BE BASED ON THE PRIMARY CLINICAL RECORDS. [facility] [email or web address] [facility]. provides no warranty or guarantee of the accuracy or completeness of information in this document.
== END 2024-05-24 12:47 | disposition home or self-care (01) ==
PROVIDERS: PCP Family Medicine; Visit Provider Physician Assistant
DX: O41.8X10 Other specified disorders of amniotic fluid and membranes, first trimester, not applicable or unspecified (principal); O36.80X0 Pregnancy with inconclusive fetal viability, not applicable or unspecified; Z3A.12 12 weeks gestation of pregnancy
CPT/HCPCS: 76816

== ENCOUNTER 2024-06-23 23:57 | Emergency (ER) | payer OTHER, SELFPAY ==
[2024-06-24] VITALS (18 sets, daily range): BP systolic 113–139; BP diastolic 59–76; PULSE 74–107; TEMP 36.7; O2SAT 98–100; BMI 33.2
--- OUTSIDE RECORDS SUMMARY | 2024-06-24 00:05 | XMS_ITS | CCD ---
Author Organization [facility] Care Team Providers Care Banking Supervisor Name Role Phone TARYN, DR GA Primary Care Unavailable MAGUE, DR MAUDE Pathak Admitting Unavailchristiana BOWSER, DR MAUDE Pathak Consulting Unavailchristiana BOWSER, DR MAUDE Pathak Attending UnavailJackie Morrow Consulting Unavailable Urban Santana Unavailable Georgie Disla Unavailable Dontrell Gallegos Unavailable Susanne Huitron Unavailable Urban Santana MD Primary Care Provider [phone] DO Urban Santana Primary Care Provider DO Tashi Tom Jr Attending Provider [phone] Urban Santana Primary Care Unavailable Tashi Tom Jr Admitting Unavailable Tashi Tom Jr Attending Unavailable Talita Godinez Admitting Unavailable Talita Godinez Attending Unavailable Urban Santana Primary Care Unavailable Unavailable Primary Care Provider UnavailTALITA Mcadams Referring Unavailable ARPITA GUSMAN Attending Unavailable UZMAARPITA ARRIAGA Attending Unavailable TALITA GODINEZ Attending Unavailable UZMA ARPITA Attending Unavailable UZMA, ARPITA Attending Unavailable UZMA, ARPITA Attending Unavailable UZMA ARPITA Attending Unavailable UZMA ARPITA Attending Unavailable TALITA GODINEZ Attending Unavailable Medications Current Medications Medication Drug [...] Jul, Active azithromycin 250 mg oral tablet (5 sources) Macrolide Antimicrobial Start: 05-04-2024 azithromycin (Zithromax Z-Yr) 250 MG tablet Indications: URI, acute As directed 6 tablet 05/04/2024 Active take 1 tablet by mouth in the mo rning azithromycin (ZITHROMAX) 250 mg tablet Take 1 tablet (250 mg total) by mouth in the morning. DIRECTED.. Active citalopram 20 mg oral tablet (2 [...] Start: 01-18-2022 take 1 capsule by mo [facility] every twenty-four hours DULoxetine HCl [...] morning. 30 capsule 3 06/11/2023 10/09/2023 Active vit,[id number] c (PRENATABS FA) 29-1 mg tablet (1 source) take 1 tablet by mouth in the morning vit,[id number] (PRENATABS FA) 29-1 mg tablet Take 1 tablet by mouth in the morning. Active vitamin (Prenatabs Rx) 29-1 MG tablet (14 sources) Start: 2023 take 1 tablet by [...] Active promethazine hydrochloride 12.5 mg oral tablet (5 sources) Phenothiazine Start: 05-11-2024 End: 08-09-2024 take 1 [...] [Irregular menstruation, unspecified] 05-03-2024 Chronic Mood disorders (14 sources) Depressive disorder; Translations: [Depression] Onset: 11-18-2022 11-18-2022 Chronic Open wounds of extremities (4 sources) Laceration without foreign body of right forearm, initial encounter; Translations: [LACERATION W/O FB RT FORARM INITIAL] Onset: 12-16-2020 Episodic Other eye disorders (14 sources) Bilateral vitreous floaters; Translations: [Other vitreous opacities, bilateral] Onset: 11-18-2022 11-18-2022 Chronic Other female genital disorders (14 sources) Abnormal uterine bleeding; Translations: [Abnormal uterine and vaginal bleeding, unspecified] Onset: 11-18-2022 11-18-2022 Chronic Other nutritional; endocrine; and metabolic disorders (14 sources) Obesity; Translations: [Obesity, unspecified] Onset: 11-18-2022 11-18-2022 Chronic Other and delivery including normal (8 sources) Third trimester ; Translations: [Encounter for supervision of normal , unspecified, third trimester] Onset: 05-31-2024 07-08-2023 Episodic Other screening for suspected conditions (not mental disorders or infectious disease) (15 sources) Liver function tests abnormal; Translations: [Abnormal results of liver function studies] Onset: 11-18-2022 11-18-2022 Episodic Other upper respiratory infections (1 source) Acute frontal sinusitis, unspecified Episodic Polyhydramnios and other problems of amniotic cavity (4 sources) Subchorionic hematoma; Translations: [Other specified disorders of amniotic fluid and membranes, first trimester, not applicable or unspecified] Onset: 05-31-2024 05-31-2024 Episodic Residual codes; unclassified (11 sources) Insomnia; Translations: [Insomnia, unspecified] Episodic Residual codes; unclassified (4 sources) Gestation period, 13 weeks; Translations: [13 weeks gestation of ] Onset: 05-31-2024 05-31-2024 Episodic Past or Other Problems Problem Classification Problem Date Documented Da te Episodic/Chronic Administrative/social admission (2 sources) Patient encounter status; Translations: [Persons encountering health services in other specified circumstances] 01-13-2024 Episodic Genitourinary symptoms and ill-defined conditions (15 sources) Dysuria; Translations: [Malodorous urine] Onset: 11-18-2022 Episodic Joint disorders and dislocations; trauma-related (14 sources) Recurrent dislocation of shoulder region; Translations: [Recurrent dislocation, unspecified shoulder] Onset: 02-21-2009 12-03-2022 Episodic Other nutritional; endocrine; and metabolic disorders (2 sources) Weight gain; Translations: [Abnormal weight gain] 01-13-2024 Episodic Unclassified (1 source) Patient encounter status 06-08-2024 Results Test Name Value Interpretation Reference Range Facility US OB LIMITED 1+ FETUSESon 0 06-22-2024 US OB LIMITED 1+ FETUSES TITLE OF EXAM: OB Ultrasound: REASON FOR EXAM: Subchorionic hematoma. COMPARISON: None TECHNIQUE: Grayscale and M-mode Doppler imaging is performed. FINDINGS: Measurements: heart rate: 138 bpm Cervix Length: 3.8 cm TONJA: 11/26/2024 Limited for: Placenta Presentation: Cephalic Placenta Location: Anterior, low lying, marginal. Heart Rate: 138 bpm Somatic motion: Yes Cervical Length: 3.8 cm Closed Endovaginal and transabdominal exam was performed. There is a hypoechoic area deep to the midportion of the placenta not completely imaged. Measuring in the range of 4 cm in length. IMPRESSION: 1. There is a subchorionic irregularity most likely a subplacental/subchori onic hemorrhage. OB follow-up recommended. 2. The placenta touches or partially covers the cervical os consistent with a marginal or partial previa. Follow-up ultrasound prior to delivery is recommended to document retraction. *This report is generated using voice recognition reporting (BondandDenie). On occasion PowerScribe erroneously drops words from the report or replaces the spoken word with similar sounding words. Please call with any questions/concerns regarding this report.* Dictated and transcribed 06/22/24/dpd This report has been electronically signed and approved by the interpreting radiologist. Normal Not Available Comment on above: Order Comment: US OB PLACENTA W US OB TRANSVAGINAL Estimated Date of Delivery: 12/03/24 Gestational Age as of 05/31/2024: 13w3d Urinalysis macro (dipstick) panel (U)on 05-31-2024 Bilirubin, UA Negative Negative - 4(70) +++ mg/dL [facility] Blood, UA Negative Negative - 50 Rodriguez/mcL [facility] Clarity, UA Clear [facility] Color, UA Yellow [facility] Glucose, UA Negative Negative - 1999(110) ++++ mg/dL [facility] Interpretation and review of laboratory results Normal [facility] Ketones, UA Negative Negative - 160(16) ++++ mg/dL [facility] Leukocytes, UA Negative Negative - 500+++ Dg/mcL [facility] Nitrite, UA Negative Negative - Positive [facility] pH, UA 6 5 - 9 [facility] Protein, UA Negative Negative - 2000(20) ++++ mg/dL [facility] Spec Grav, UA 1.005 1 - 1.03 [facility] Urobilinogen, UA 0.2 0.2 - 12 mg/dL [facility] ALL CBC WITH AUTO DIFFon BASOPHILS ABSOLUTE AUTO 0 N [facility] Basophils/100 WBC (Bld) 0.3 % 0.2 - 2.0 % [facility] Eosinophils/100 WBC (Bld) 1.2 % 0.9 - 7.0 % [facility] Erythrocyte distribution width (RBC) [Ratio] 12.8 % 11.0 - 15.0 % [facility] IMMATURE GRANULOCYTES ABS AUTO 0.02 [facility] Immature granulocytes/100 WBC (Bld) 0.3 % 0.0 - 0.5 % [facility] Interpretation and review of laboratory results Abnormal [facility] LYMPHOCYTES ABSOLUTE AUTO 1.9 [facility] Lymphocytes/100 WBC (Bld) 24.2 % 20.5 - 60.0 % [facility] MCH (RBC) [Entitic mass] 28.7 pg 26.7 - 34.0 pg [facility] MCHC (RBC) [Mass/Vol] 33.5 g/dL 29.9 - 35.2 g/dL [facility] MCV (RBC) [Entitic vol] 85.6 fL 81.0 - 99.0 fL [facility] MONOCYTES ABSOLUTE AUTO 0.5 N [facility] Monocytes/100 WBC (Bld) 5.9 % 1.7 - 12.0 % [facility] NEUTROPHILS ABSOLUTE AUTO 5.3 [facility] Neutrophils/100 WBC (Bld) 68.1 % 43.0 - 75.0 % [facility] Platelet mean volume (Bld) [Entitic vol] 9.2 fL Low 9.5 - 13.5 fL [facility] TB EO # 0.1 [facility] TB PLT [facility] RBC 4.36 [facility] WBC 7.8 [facility] Free Cell DNAon 2023 Free Cell Dna LOW RISK [facility] - Hematology and Cell countson 05-21-2024 Hematocrit (Bld) [Volume fraction] 37.3 % [facility] Hemoglobin (Bld) [Mass/Vol] 12.5 g/dL [facility] No Panel Informationon 05-21 [facility] Rubella IGG immune statuson 05-21-2024 Rubella immune IgG 2.97 IMMUNE [facility] Syphilis Total(Unknown Syphi lis Status)on 05-21-2024 Syphilis Non-Reactive [facility] Urine Cultureon 05-21-2024 Bacteria identified Cx Nom (U) 20,000 colonies/ml mixed bacterial skin contaminants 2 Days PERFORMED BY: [place] [address] PATHOLOGIST ER TECH HIRO GILLETTE M.D. Normal [facility] Comment on above: Performed By: #### C UU #### [address] HCG ( test) Ql (U)o n 05-03-2024 Interpretation and review of laboratory results Abnormal [facility] Preg Test, Ur Positive Negative [facility] Urinalysis macro (dipstick) panel (U)on 05-03-2024 Bilirubin, UA Negative Negative - 4(70) +++ mg/dL [facility] Blood, UA Negative Negative - 50 Rodriguez/mcL [facility] Clarity, UA Clear [facility] Color, UA Yellow [facility] Glucose, UA Negative Negative - 2000(110) ++++ mg/dL [facility] Interpretation and review of laboratory results Normal [facility] Ketones, UA Negative Negative - 160(16) ++++ mg/dL [facility] Leukocytes, UA Negative Negative - 500+++ Dg/mcL [facility] Nitrite, UA Negative Negative - Positive [facility] pH, UA 6 5 - 9 [facility] Protein, UA Negative Negative - 2000(20) ++++ mg/dL [facility] Spec Grav, UA 1.01 1 - 1.03 [facility] Urobilinogen, UA 1.0 0.2 - 12 mg/dL [facility] PREG QUANT HCGon 024 HCG QUANTITATIVE 97102 mIU/mL [facility] Comment on above: 5-50 0.2-1 WEEK 50-500 1-2 WEEKS 100-5,000 2-3 WEEKS 500-10,000 3-4 WEEKS 1,000-50,000 4-5 WEEKS 10,000-100,000 5-6 WEEKS 15,000-200,000 6-8 WEEKS 10,000-100,000 2-[facility] 024 HCG QUANTITATIVE 27037 mIU/mL [facility] Comment on above: 5-50 0.2-1 WEEK 50-500 1-2 WEEKS 100-5,000 2-3 WEEKS 500-10,000 3-4 WEEKS 1,000-50,000 4-5 WEEKS 10,000-100,000 5-6 WEEKS 15,000-200,000 6-8 WEEKS 10,000-100,000 2-3 MONTHS [facility] PREG QUANT HCGon 024 HCG QUANTITATIVE 6694 mIU/mL [facility] Comment on above: 5-50 0.2-1 WEEK 50-500 1-2 WEEKS 100-5,000 2-3 WEEKS 500-10,000 3-4 WEEKS 1,000-50,000 4-5 WEEKS 10,000-100,000 5-6 WEEKS 15,000-200,000 6-8 WEEKS 10,000-100,000 2-3 MONTHS [facility] PREG QUANT HCGon 024 HCG QUANTITATIVE 3710 mIU/mL [facility] Comment on above: 5-50 0.2-1 WEEK 50-500 1-2 WEEKS 100-5,000 2-3 WEEKS 500-10,000 3-4 WEEKS 1,000-50,000 4-5 WEEKS 10,000-100,000 5-6 WEEKS 15,000-200,000 6-8 WEEKS 10,000-100,000 2-[address] [facility] Alanine aminotransferase [En zymatic activity/volume] in Serum or PlasmaOrdered By: Georgie Calvo on 09-18-2023 ALT [Catalytic activity/Vol] 23 U/L Normal 7-52 [facility] Comment on above: Performed By: #### N ICOTINE QUAL #### [facility] , #### CMP wRFX A1C, EBS LIPID #### [facility] [address] [place] [address] [place] Albumin [Mass/volume] in Ser um or Plasma by Bromocresol green (BCG) dye binding methoOrdered By: Georgie Calvo on 09-18-2023 Albumin BCG dye [Mass/Vol] 4.7 g/dL 3.5-5.7 [facility] Alkaline phosphatase [Enzyma tic activity/volume] in Serum or PlasmaOrdered By: Georgie Calvo on 09-18-2023 ALP [Catalytic activity/Vol] 72 U/L Normal 34-104 [facility] Comment on above: Performed By: #### N ICOTINE QUAL #### [facility] , #### CMP wRFX A1C, EBS LIPID #### [facility] [address] [place] [id number] [place] Aspartate aminotransferase [ Enzymatic activity/volume] in Serum or PlasmaOrdered By: Georgie Calvo on 09-18-2023 AST [Catalytic activity/Vol] 26 U/L Normal 13-39 [facility] Comment on above: Performed By: #### N ICOTINE QUAL #### [facility] , #### CMP wRFX A1C, EBS LIPID #### [facility] [address] [place] [id number] [place] Bilirubin.total [Mass/volume ] in Serum or PlasmaOrdered By: Georgie Calvo on 09-18-2023 Bilirubin [Mass/Vol] 0.7 mg/dL Normal 0.3-1.0 [facility] Comment on above: Performed By: #### N ICOTINE QUAL #### [facility] , #### CMP wRFX A1C, EBS LIPID #### [facility] [address] CMP with reflex to A1Con Albumin [Mass/Vol] 4.7 g/dL Normal 3.5-5.7 [facility] Comment on above: Performed By: #### N ICOTINE QUAL #### [facility] , #### CMP wRFX A1C, EBS LIPID #### [facility] [address] [place] [address] GFR/1.73 sq M.predicted MDRD (S/P/Bld) [Vol rate/Area] mL/min/{1.73_m2} Normal [facility] Comment on above: Performed By: #### N ICOTINE QUAL #### [facility] , #### CMP wRFX A1C, EBS LIPID #### [facility] [address] [place] [address] Calcium [Mass/volume] in Ser um or PlasmaOrdered By: Georgie Calvo on 09-18-2023 Calcium [Mass/Vol] 10.1 mg/dL Normal 8.6-10.3 [facility] Comment on above: Performed By: #### N ICOTINE QUAL #### [facility] , #### CMP wRFX A1C, EBS LIPID #### [facility] [address] [place] [address] Carbon dioxide, total [Moles /volume] in Serum or PlasmaOrdered By: Georgie Calvo on 09-18-2023 CO2 [Moles/Vol] 28.5 mmol/L Normal 21.0-31.0 [facility] Comment on above: Performed By: #### N ICOTINE QUAL #### [facility] , #### CMP wRFX A1C, EBS LIPID #### [facility] [address] [place] [address] [place] Chloride [Moles/volume] in S fabiana or PlasmaOrdered By: Georgie Calvo on 09-18-2023 Chloride [Moles/Vol] 101 mmol/L Normal 98-107 [facility] Comment on above: Performed By: #### N ICOTINE QUAL #### [facility] , #### CMP wRFX A1C, EBS LIPID #### [facility] [address] [place] [address] [place] Cholesterol [Mass/volume] in Serum or PlasmaOrdered By: Georgie Calvo on 09-18-2023 Cholesterol [Mass/Vol] 239 mg/dL High 140-200 [facility] Comment on above: Chol less than 200 m g/dl low riskChol 201-239 mg/dl borderline riskChol 240 mg/dl and greater high risk Result Comment: Chol less than 200 mg/dl low risk Chol 201-239 mg/dl borderline risk Chol 240 mg/dl and greater high risk Performed By: #### N ICOTINE QUAL #### [facility] , #### CMP wRFX A1C, EBS LIPID #### [facility] [address] [place] [address] [place] Cholesterol in LDL Calc [Mas s/Vol]Ordered By: Georgie Calvo on 09-18-2023 Cholesterol in LDL [Mass/Vol] 154 mg/dL 0-100 [facility] Comment on above: LDL ATP III CLASSIFI CATIONLDL less than 100 mg/dL OptimalLDL 100-129 mg/dL Near or above optimalLDL 130-159 mg/dL Borderline highLDL 160-189 mg/dL HighLDL greater than 189 mg/dL Very high Cholesterol in VLDL Calc [Ma ss/Vol]Ordered By: Georgie Calvo on 09-18-2023 Cholesterol in VLDL [Mass/Vol] 14 mg/dL [facility] Creatinine [Mass/volume] in Serum or PlasmaOrdered By: Georgie Calvo on 09-18-2023 Creatinine [Mass/Vol] 0.79 mg/dL Normal 0.60-1.20 [facility] Comment on above: Performed By: #### N ICOTINE QUAL #### [facility] , #### CMP wRFX A1C, EBS LIPID #### [facility] [address] [place] [id number] [place] Glucose [Mass/volume] in Ser um or PlasmaOrdered By: Georgie Calvo on 09-18-2023 Glucose [Mass/Vol] 78 mg/dL Normal 70-100 [facility] Comment on above: Performed By: #### N ICOTINE QUAL #### [facility] , #### CMP wRFX A1C, EBS LIPID #### [facility] [address] [place] [id number] [facility] Lipid Profileon 09-18-2023 LDL Cholesterol,Calculated 154 mg/dL High 0-100 [facility] Comment on above: Result Comment: LDL ATP III CLASSIFICATION LDL less than 100 mg/dL Optimal LDL 100-129 mg/dL Near or above optimal LDL 130-159 mg/dL Borderline high LDL 160-189 mg/dL High LDL greater than 189 mg/dL Very high Performed By: #### N ICOTINE QUAL #### [facility] , #### CMP wRFX A1C, EBS LIPID #### [facility] [address] Triglyceride w/Reflex 73 mg/dL Normal 0-149 [facility] Comment on above: Result Comment: TRIG ATP III CLASSIFICATION TRIG less than 150 mg/dL Normal TRIG 150-199 mg/dL Borderline high TRIG 200-500 mg/dL High TRIG greater than 500 mg/dL Very high Standard traceable to the Center for Disease Conrtrol and Prevention (CDC) test method. Performed By: #### N ICOTINE QUAL #### [facility] , #### CMP wRFX A1C, EBS LIPID #### [facility] [address] [place] [id number] [facility] VLDL CHOLESTEROL 14 mg/dL Normal [facility] Comment on above: Performed By: #### N ICOTINE QUAL #### [facility] , #### CMP wRFX A1C, EBS LIPID #### [address] Nicotine Metabolite, Qualon 09-18-2023 Nicotine Metabolite Negative Normal Cutoff=25 [facility] Comment on above: Result Comment: Perf ormed at: BN - [facility] [address] [id number] Cover Stitch Machine Operator: Josh Ortez MD, Phone: [phone] PERFORMED BY: [place] [address] PATHOLOGIST ER TECH ROBERT WEBB M.D. Performed By: #### N ICOTINE QUAL #### [facility] , #### CMP wRFX A1C, EBS LIPID #### [address] No Panel InformationOrdered By: Georgie Calvo on 09-18-2023 Estimated GFR (CKD-EPI) > 60.0 mL/Min [facility] Creatinine Clearance (Chem N/A [facility] Potassium [Moles/volume] in Serum or PlasmaOrdered By: Georgie Calvo on 09-18-2023 Potassium [Moles/Vol] 4.0 mmol/L Normal 3.5-5.1 [facility] Comment on above: Performed By: #### N ICOTINE QUAL #### [facility] , #### CMP wRFX A1C, EBS LIPID #### [address] Protein [Mass/volume] in Ser um or PlasmaOrdered By: Georgie Calvo on 09-18-2023 Protein [Mass/Vol] 7.1 g/dL Normal 6.4-8.9 [facility] Comment on above: Performed By: #### N ICOTINE QUAL #### [facility] , #### CMP wRFX A1C, EBS LIPID #### [facility] [address] [place] [address] Serum globulin measurement b y calculation (mass/volume)Ordered By: Georgie Calvo on 09-18-2023 Globulin (S) [Mass/Vol] 2.4 g/dL Normal [facility] Comment on above: Performed By: #### N ICOTINE QUAL #### [facility] , #### CMP wRFX A1C, EBS LIPID #### [facility] [address] [place] [address] Serum or plasma albumin/glob ulin mass ratioOrdered By: Georgie Calvo on 09-18-2023 Albumin/Globulin [Mass ratio] 2.0 {ratio} Normal [facility] Comment on above: Performed By: #### N ICOTINE QUAL #### [facility] , #### CMP wRFX A1C, EBS LIPID #### [address] Serum or plasma anion gap de terminationOrdered By: Georgie Calvo on 09-18-2023 Anion gap [Moles/Vol] 12.5 mmol/L Normal 6.0-15.0 [facility] Comment on above: Performed By: #### N ICOTINE QUAL #### [facility] , #### CMP wRFX A1C, EBS LIPID #### [facility] [address] [place] [address] Serum or plasma high density lipoprotein (HDL) cholesterol measurementOrdered By: Georgie Calvo on 09-18-2023 Cholesterol in HDL [Mass/Vol] 70 mg/dL Normal 23-92 [facility] Comment on above: HDL CHOL ATP-III CLA SSIFICATION Cardiovascular RiskHDL > or equal to 60 mg/dL LOWHDL < 40 mg/dL HIGH Result Comment: HDL CHOL ATP-III CLASSIFICATION Cardiovascular Risk HDL > or equal to 60 mg/dL LOW HDL < 40 mg/dL HIGH Performed By: #### N ICOTINE QUAL #### [facility] , #### CMP wRFX A1C, EBS LIPID #### [facility] [address] [place] [address] Serum or plasma total choles terol/high density lipoprotein (HDL) cholesterol mass ratOrdered By: Georgie Calvo on 09-18-2023 Cholesterol.total/[place] sterol in HDL [Mass ratio] 3.4 {ratio} Normal <5.0 [facility] Comment on above: Result Comment: PERF ORMED BY: [place] [address] PATHOLOGIST ER TECH ROBERT WEBB M.D. Performed By: #### N ICOTINE QUAL #### [facility] , #### CMP wRFX A1C, EBS LIPID #### [facility] [address] [place] [address] [place] Sodium [Moles/volume] in Ser um or PlasmaOrdered By: Georgie Calvo on 09-18-2023 Sodium [Moles/Vol] 138 mmol/L Normal 136-145 [facility] Comment on above: Performed By: #### N ICOTINE QUAL #### [facility] , #### CMP wRFX A1C, EBS LIPID #### [facility] [address] [place] [address] [place] Triglyceride [Mass/volume] i n Serum or PlasmaOrdered By: Georgie Calvo on 09-18-2023 Triglyceride [Mass/Vol] 73 mg/dL 0-149 [facility] Comment on above: TRIG ATP III CLASSIF ICATIONTRIG less than 150 mg/dL NormalTRIG 150-199 mg/dL Borderline highTRIG 200-500 mg/dL High TRIG greater than 500 mg/dL Very highStandard traceable to the Center for Disease Conrtrol and Prevention (CDC) test method. Urea nitrogen [Mass/volume] in Serum or PlasmaOrdered By: Georgie Calvo on 09-18-2023 Urea nitrogen [Mass/Vol] 14 mg/dL Normal 7-25 [facility] Comment on above: Performed By: #### N ICOTINE QUAL #### [facility] , #### CMP wRFX A1C, EBS LIPID #### [facility] [address] [place] [address] [place] Basophils Auto (Bld) [#/Vol] on 08-05-2023 Basophils (Bld) [#/Vol] 0.0 10 3/uL 0.0-0.1 [facility] Basophils/100 WBC Auto (Bld) on 08-05-2023 Basophils/100 WBC (Bld) 0.2 % 0.2-2.0 [facility] Eosinophils/100 WBC Auto (Bl d)on 08-05-2023 Eosinophils/100 WBC (Bld) 0.1 % 0.9-7.0 [facility] Erythrocyte distribution wid th Auto (RBC) [Ratio]on 08-05-2023 Erythrocyte distribution width (RBC) [Ratio] 13.8 % 11.0-15.0 [facility] Hematocrit Auto (Bld) [Volum e fraction]on 08-05-2023 Hematocrit (Bld) [Volume fraction] 33.5 % 36.0-48.0 [facility] Hemoglobin [Mass/volume] in Bloodon 08-05-2023 Hemoglobin (Bld) [Mass/Vol] 10.7 g/dL 12.0-16.0 [facility] Laboratory - Hematology and Cell countson 08-05-2023 Immature granulocytes/100 WBC (Bld) 0.5 % 0.0-0.5 [facility] Leukocytes [#/volume] correc oneal for nucleated erythrocytes in Blood by Automated counon 08-05-2023 WBC corrected for nucl RBC Auto (Bld) [#/Vol] 19.3 10 3/uL 4.0-11.0 [facility] Lymphocytes Auto (Bld) [#/Vo l]on 08-05-2023 Lymphocytes (Bld) [#/Vol] 1.7 10 3/uL 1.2-3.8 [facility] Lymphocytes/100 WBC Auto (Bl d)on 08-05-2023 Lymphocytes/100 WBC (Bld) 9.0 % 20.5-60.0 [facility] MCH Auto (RBC) [Entitic mass ]on 08-05-2023 MCH (RBC) [Entitic mass] 27.9 pg 26.7-34.0 [facility] MCHC Auto (RBC) [Mass/Vol]on 08-05-2023 MCHC (RBC) [Mass/Vol] 31.9 g/dL 29.9-35.2 [facility] MCV Auto (RBC) [Entitic vol] on 08-05-2023 MCV (RBC) [Entitic vol] 87.2 fL 81.0-99.0 [facility] Monocytes Auto (Bld) [#/Vol] on 08-05-2023 Monocytes (Bld) [#/Vol] 0.5 10 3/uL 0.3-0.8 [facility] Monocytes/100 WBC Auto (Bld) on 08-05-2023 Monocytes/100 WBC (Bld) 2.8 % 1.7-12.0 [facility] Neutrophils Auto (Bld) [#/Vo l]on 08-05-2023 Neutrophils (Bld) [#/Vol] 16.9 10 3/uL 1.4-6.5 [facility] Neutrophils/100 WBC Auto (Bl d)on 08-05-2023 Neutrophils/100 WBC (Bld) 87.4 % 43.0-75.0 [facility] No Panel Informationon 08-04 Eosinophils # (Auto) 0.0 10 3/uL 0.0-0.7 [facility] Immature Granulocyte # (Auto) 0.09 10 3/uL 0.00-0.03 [facility] Platelet mean volume Auto (B ld) [Entitic vol]on 08-05-2023 Platelet mean volume (Bld) [Entitic vol] 10.4 fL 9.5-13.5 [facility] Platelets Auto (Bld) [#/Vol] on 08-05-2023 Platelets (Bld) [#/Vol] 199 10 3/uL 150-450 [facility] RBC Auto (Bld) [#/Vol]on RBC (Bld) [#/Vol] 3.84 10 6/uL 4.20-5.40 [facility] Basophils Auto (Bld) [#/Vol] on 08-04-2023 Basophils (Bld) [#/Vol] 0.0 10 3/uL 0.0-0.1 [facility] Basophils/100 WBC Auto (Bld) on 08-04-2023 Basophils/100 WBC (Bld) 0.2 % 0.2-2.0 [facility] Buprenorphine [Presence] in Urineon 08-04-2023 Buprenorphine Ql (U) Negative NEGATIVE [facility] Comment on above: DRUG CLASS TEST SYST EM CUT-OFF CONCENTRATIONS ARE ASFOLLOWS:AMP (Amphetamine): 500 ng/mLBAR (Barbiturates): 200 ng/mLBZO (Benzodiazepines): 150 ng/mLBUP (Buprenorphine): 10 ng/mLCOC (Cocaine): 150 ng/mLmAMP (Methamphetamine): 500 ng/mLMTD (Methadone): 200 ng/mLOPI (Opiates): 100 ng/mLOXY (Oxycodone): 100 ng/mLPCP (Phencyclidine): 25 ng/mLTHC (Cannabinoids): 50 ng/mLTCA (Trycyclic Antidepressants): 300 ng/mL Eosinophils/100 WBC Auto (Bl d)on 08-04-2023 Eosinophils/100 WBC (Bld) 0.4 % 0.9-7.0 [facility] Erythrocyte distribution wid th Auto (RBC) [Ratio]on 08-04-2023 Erythrocyte distribution width (RBC) [Ratio] 13.7 % 11.0-15.0 [facility] Hematocrit Auto (Bld) [Volum e fraction]on 08-04-2023 Hematocrit (Bld) [Volume fraction] 37.3 % 36.0-48.0 [facility] Hemoglobin [Mass/volume] in Bloodon 08-04-2023 Hemoglobin (Bld) [Mass/Vol] 12.1 g/dL 12.0-16.0 [facility] Laboratory - Drug toxicology on 08-04-2023 Amphetamines Ql (U) Negative NEGATIVE [facility] Benzodiazepines Ql (U) Negative NEGATIVE [facility] Cocaine Ql (U) Negative NEGATIVE [facility] Opiates Ql (U) Negative NEGATIVE [facility] Phencyclidine Ql (U) Negative NEGATIVE [facility] Laboratory - Hematology and Cell countson 08-04-2023 Immature granulocytes/100 WBC (Bld) 0.3 % 0.0-0.5 [facility] Leukocytes [#/volume] correc oneal for nucleated erythrocytes in Blood by Automated counon 08-04-2023 WBC corrected for nucl RBC Auto (Bld) [#/Vol] 11.9 10 3/uL 4.0-11.0 [facility] Lymphocytes Auto (Bld) [#/Vo l]on 08-04-2023 Lymphocytes (Bld) [#/Vol] 3.4 10 3/uL 1.2-3.8 [facility] Lymphocytes/100 WBC Auto (Bl d)on 08-04-2023 Lymphocytes/100 WBC (Bld) 28.8 % 20.5-60.0 [facility] MCH Auto (RBC) [Entitic mass ]on 08-04-2023 MCH (RBC) [Entitic mass] 27.8 pg 26.7-34.0 [facility] MCHC Auto (RBC) [Mass/Vol]on 08-04-2023 MCHC (RBC) [Mass/Vol] 32.4 g/dL 29.9-35.2 [facility] MCV Auto (RBC) [Entitic vol] on 08-04-2023 MCV (RBC) [Entitic vol] 85.6 fL 81.0-99.0 [facility] Methadone [Presence] in Urin e by Screen methodon 08-04-2023 Methadone Screen Ql (U) Negative NEGATIVE [facility] Monocytes Auto (Bld) [#/Vol] on 08-04-2023 Monocytes (Bld) [#/Vol] 0.5 10 3/uL 0.3-0.8 [facility] Monocytes/100 WBC Auto (Bld) on 08-04-2023 Monocytes/100 WBC (Bld) 4.6 % 1.7-12.0 [facility] Neutrophils Auto (Bld) [#/Vo l]on 08-04-2023 Neutrophils (Bld) [#/Vol] 7.8 10 3/uL 1.4-6.5 [facility] Neutrophils/100 WBC Auto (Bl d)on 08-04-2023 Neutrophils/100 WBC (Bld) 65.7 % 43.0-75.0 [facility] No Panel Informationon 08-03 Eosinophils # (Auto) 0.1 10 3/uL 0.0-0.7 [facility] Immature Granulocyte # (Auto) 0.04 10 3/uL 0.00-0.03 [facility] Urine Barbiturates Screen Negative NEGATIVE [facility] Urine Marijuana (THC) Screen Negative NEGATIVE [facility] Urine Methamphetamines Screen Negative NEGATIVE [facility] Platelet mean volume Auto (B ld) [Entitic vol]on 08-04-2023 Platelet mean volume (Bld) [Entitic vol] 10.0 fL 9.5-13.5 [facility] Platelets Auto (Bld) [#/Vol] on 08-04-2023 Platelets (Bld) [#/Vol] 228 10 3/uL 150-450 [facility] RBC Auto (Bld) [#/Vol]on RBC (Bld) [#/Vol] 4.36 10 6/uL 4.20-5.40 [facility] Urine tricyclic antidepressa nt measurementon 08-04-2023 Tricyclic antidepressants (U) [Mass/Vol] Negative NEGATIVE [facility] oxyCODONE+oxyMORphone [Prese nce] in Urine by Screen methodon 08-04-2023 oxyCODONE+oxyMORphone Screen Ql (U) Negative NEGATIVE [facility] Basophils Auto (Bld) [#/Vol] on 07-21-2023 Basophils (Bld) [#/Vol] 0.0 10 3/uL 0.0-0.1 [facility] Basophils/100 WBC Auto (Bld) on 07-21-2023 Basophils/100 WBC (Bld) 0.3 % 0.2-2.0 [facility] Eosinophils/100 WBC Auto (Bl d)on 07-21-2023 Eosinophils/100 WBC (Bld) 0.6 % 0.9-7.0 [facility] Erythrocyte distribution wid th Auto (RBC) [Ratio]on 07-21-2023 Erythrocyte distribution width (RBC) [Ratio] 13.4 % 11.0-15.0 [facility] Hematocrit Auto (Bld) [Volum e fraction]on 07-21-2023 Hematocrit (Bld) [Volume fraction] 38.1 % 36.0-48.0 [facility] Hemoglobin [Mass/volume] in Bloodon 07-21-2023 Hemoglobin (Bld) [Mass/Vol] 12.3 g/dL 12.0-16.0 [facility] Laboratory - Hematology and Cell countson 07-21-2023 Immature granulocytes/100 WBC (Bld) 0.3 % 0.0-0.5 [facility] Leukocytes [#/volume] correc oneal for nucleated erythrocytes in Blood by Automated counon 07-21-2023 WBC corrected for nucl RBC Auto (Bld) [#/Vol] 10.7 10 3/uL 4.0-11.0 [facility] Lymphocytes Auto (Bld) [#/Vo l]on 07-21-2023 Lymphocytes (Bld) [#/Vol] 2.8 10 3/uL 1.2-3.8 [facility] Lymphocytes/100 WBC Auto (Bl d)on 07-21-2023 Lymphocytes/100 WBC (Bld) 25.8 % 20.5-60.0 [facility] MCH Auto (RBC) [Entitic mass ]on 07-21-2023 MCH (RBC) [Entitic mass] 27.9 pg 26.7-34.0 [facility] MCHC Auto (RBC) [Mass/Vol]on 07-21-2023 MCHC (RBC) [Mass/Vol] 32.3 g/dL 29.9-35.2 [facility] MCV Auto (RBC) [Entitic vol] on 07-21-2023 MCV (RBC) [Entitic vol] 86.4 fL 81.0-99.0 [facility] Monocytes Auto (Bld) [#/Vol] on 07-21-2023 Monocytes (Bld) [#/Vol] 0.4 10 3/uL 0.3-0.8 [facility] Monocytes/100 WBC Auto (Bld) on 07-21-2023 Monocytes/100 WBC (Bld) 4.1 % 1.7-12.0 [facility] Neutrophils Auto (Bld) [#/Vo l]on 07-21-2023 Neutrophils (Bld) [#/Vol] 7.4 10 3/uL 1.4-6.5 [facility] Neutrophils/100 WBC Auto (Bl d)on 07-21-2023 Neutrophils/100 WBC (Bld) 68.9 % 43.0-75.0 [facility] No Panel Informationon 07-21 Eosinophils # (Auto) 0.1 10 3/uL 0.0-0.7 [facility] Immature Granulocyte # (Auto) 0.03 10 3/uL 0.00-0.03 [facility] Platelet mean volume Auto (B ld) [Entitic vol]on 07-21-2023 Platelet mean volume (Bld) [Entitic vol] 9.8 fL 9.5-13.5 [facility] Platelets Auto (Bld) [#/Vol] on 07-21-2023 Platelets (Bld) [#/Vol] 220 10 3/uL 150-450 [facility] RBC Auto (Bld) [#/Vol]on RBC (Bld) [#/Vol] 4.41 10 6/uL 4.20-5.40 [facility] Urinalysis macro (dipstick) panel (U)on 07-08-2023 Bilirubin, UA Negative Negative - 4(70) +++ mg/dL [facility] Blood, UA Negative Negative - 50 Rodriguez/mcL [facility] Clarity, UA Clear [facility] Color, UA Yellow [facility] Glucose, UA Negative Negative - 1999(110) ++++ mg/dL [facility] Interpretation and review of laboratory results Abnormal [facility] Ketones, UA Negative Negative - 160(16) ++++ mg/dL [facility] Leukocytes, UA Positive Negative - 500+++ Dg/mcL [facility] Nitrite, UA Negative Negative - Positive [facility] pH, UA 5.5 5 - 9 [facility] Protein, UA Negative Negative - 2000(20) ++++ mg/dL [facility] Spec Grav, UA 1.015 1 - 1.03 [facility] Urobilinogen, UA 1.0 0.2 - 12 mg/dL [facility] Urine Cultureon 08-07-2022 Urine Culture >100,000 [employer] Other Urine Culture <16 Susceptible [employer] Other Urine Culture <8/4 Susceptible [employer] Other Urine Culture >16 Resistant [employer] Other Urine Culture <4 Susceptible [employer] Other Urine Culture <2 Susceptible [employer] Other Urine Culture <1 Susceptible [employer] Other Urine Culture <0.25 Susceptible [employer] Other Urine Culture <0.5 Susceptible [employer] Other Urine Culture >8 Resistant [employer] Other Urine Culture <32 Susceptible [employer] Other Urine Culture 4 Susceptible [employer] Other Urine Culture >2/38 Resistant [employer] Other SARS-CoV-2 (COVID-19) RNA NA A+probe Ql (Resp)on 02-13-2022 SARS-CoV-2 (COVID-19) RNA CLAY+probe Ql (Unsp spec) Positive [employer] Other SARS-CoV-2 (COVID-19) RNA NA A+probe Ql (Resp)on 02-11-2022 SARS-CoV-2 (COVID-19) RNA CLAY+probe Ql (Unsp spec) Negative [employer] Other SARS-CoV-2 (COVID-19) RNA NA A+probe Ql (Resp)on 01-12-2022 SARS-CoV-2 (COVID-19) RNA CLAY+probe Ql (Unsp spec) Negative [employer] Other XR FOREARM RT 2Von 1 XR [...] by: JACKIE WILLETT Date: 2020-12-16 14:53 Normal [facility] Vital Signs Date Time Vital Sign Value Performing Clinician Facility 06-10-2024 14:51-0500 Body height 174 cm Kyleigh Mendenhall MD Work Phone: [facility] 05-31-2024 13:33-0500 Body mass index (BMI) [Ratio] 37.31 kg/m2 Talita Herbert DO Work Phone: [facility] 05-31-2024 13:33-0500 Body weight 112.95 kg Talita Herbert DO Work Phone: [facility] 05-31-2024 13:33-0500 Diastolic blood pressure 72 mm[Hg] Talita Herbert DO Work Phone: [facility] 05-31-2024 13:33-0500 Systolic blood pressure 118 mm[Hg] Talita Herbert DO Work Phone: [facility] 01-13-2024 13:38-0400 Body mass index (BMI) [Ratio] 33.56 kg/m2 Arpita GARDNER Work Phone: [facility] 01-13-2024 13:38-0400 Body weight 101.61 kg Arpita GARDNER Work Phone: [facility] 01-13-2024 13:38-0400 Diastolic blood pressure 74 mm[Hg] Arpita GARDNER Work Phone: [facility] 01-13-2024 13:38-0400 Systolic blood pressure 116 mm[Hg] Arpita GARDNER Work Phone: [facility] 07-08-2023 13:27-0500 Body mass index (BMI) [Ratio] 38.51 kg/m2 Arpita Uzma PA Work Phone: [facility] 07-08-2023 13:27-0500 Body weight 116.57 kg Arpita Gusman PA Work Phone: [facility] 07-08-2023 13:27-0500 Diastolic blood pressure 70 mm[Hg] Arpita Gusman PA Work Phone: [facility] 07-08-2023 13:27-0500 Systolic blood pressure 112 mm[Hg] Arpita Gusman PA Work Phone: [facility] 03-01-2022 09:00-0400 Body height 175.26 cm [facility] Other [employer] Other 03-01-2022 09:00-0400 Body mass index (BMI) [Ratio] 33.81 kg/m2 [facility] Other [employer] Other 03-01-2022 09:00-0400 Body temperature 97.9 [degF] [facility] Other [employer] Other 03-01-2022 09:00-0400 Body weight 103.87 kg [facility] Other [employer] Other 03-01-2022 09:00-0400 Diastolic blood pressure 80 mm[Hg] [facility] Other [employer] Other 03-01-2022 09:00-0400 Respiratory rate 20 /min [facility] Other [employer] Other 03-01-2022 09:00-0400 SaO2% (BldA) [Mass fraction] 97 % [facility] Other [employer] Other 03-01-2022 09:00-0400 Systolic blood pressure 118 mm[Hg] [facility] Other [employer] Other 01-18-2022 09:45-0400 Body height 175.26 cm [facility] Other [employer] Other 01-18-2022 09:45-0400 Body mass index (BMI) [Ratio] 32.93 kg/m2 [facility] Other [employer] Other 01-18-2022 09:45-0400 Body temperature 97.3 [degF] [facility] Other [employer] Other 01-18-2022 09:45-0400 Body weight 101.15 kg [facility] Other [employer] Other 01-18-2022 09:45-0400 Diastolic blood pressure 72 mm[Hg] Urban [facility] Other [employer] Other 01-18-2022 09:45-0400 Respiratory rate 20 /min [facility] Other [employer] Other 01-18-2022 09:45-0400 SaO2% (BldA) [Mass fraction] 98 % [facility] Other [employer] Other 01-18-2022 09:45-0400 Systolic blood pressure 112 mm[Hg] [facility] Other [employer] Other 03-05-2021 16:15-0400 Body height 175.26 cm [facility] Other [employer] Other 03-05-2021 16:15-0400 Body mass index (BMI) [Ratio] 35.14 kg/m2 [facility] Other [employer] Other 03-05-2021 16:15-0400 Body weight 107.96 kg [facility] Other [employer] Other 03-05-2021 16:15-0400 Diastolic blood pressure 68 mm[Hg] [facility] Other [employer] Other 03-05-2021 16:15-0400 Respiratory rate 20 /min [facility] Other [employer] Other 03-05-2021 16:15-0400 SaO2% (BldA) [Mass fraction] 98 % [facility] Other [employer] Other 03-05-2021 16:15-0400 Systolic blood pressure 110 mm[Hg] [facility] Other [employer] Other Encounters Encounter Date Encounter Type Care Provider Facility Start: 06-22-2024 End: 06-22-2024 ambulatory TALITA HERBERT Not Available Start: 06-10-2024 End: 06-10-2024 Chart abstracting Kyleigh Mendenhall MD Work Phone: [facility] Start: 06-08-2024 End: 06-08-2024 Telephone encounter Lizabeth Salazar RN [facility] at [facility] Comment on above: Encounter for anatomic survey (Primary Dx) Start: 05-31-2024 End: 05-31-2024 Bamboo flowsheet Talita Herbert DO Work Phone: [facility] Start: 05-31-2024 End: 05-31-2024 Bamboo flowsheet Talita Herbert DO Work Phone: [facility] Start: 05-31-2024 End: 05-31-2024 Office outpatient visit 15 minutes Talita Herbert DO Work Phone: [facility] Comment on above: Second trimester pre gnancy; 13 weeks gestation of ; Subchorionic hematoma in first trimester, single or unspecified fetus Start: 05-31-2024 End: 05-31-2024 ambulatory TALITA HERBERT Not Available Start: 05-21-2024 End: 05-21-2024 ambulatory Talita Herbert Facility:[facility] Start: 05-21-2024 End: 05-21-2024 Clinisync Result Encounter Talita Herbert DO Work Phone: [facility] Unsolicited Start: 05-21-2024 End: 05-21-2024 Clinisync Result Encounter Talita Herbert DO Work Phone: [facility] Unsolicited Start: 05-03-2024 End: 05-03-2024 ambulatory TALITA HERBERT Not Available Start: 05-03-2024 End: 05-03-2024 Office [...] Start: 01-13-2024 End: 01-13-2024 Bamboo flowsheet Arpita Gusman PA Work Phone: [facility] Start: 01-13-2024 End: 01-13-2024 Bamboo flowsheet Arpita Gusman PA Work Phone: [facility] Start: 01-13-2024 [...] Departed Referred DO Urban Max Work Phone: [facility] [address] Work Phone: Start: 09-18-2023 End: 09-18-2023 ambulatory DO Urban M. Max Work Phone: [facility] Work Phone: Start: 09-16-2023 End: 09-16-2023 ambulatory ARPITA GUSMAN Not Available Start: 08-12-2023 End: 08-12-2023 ambulatory ARPITA GUSMAN Not Available Start: 08-05-2023 Non-patient / Non-visit DO Urban Max Work Phone: [facility] Work Phone: Start: 08-04-2023 Non-patient / Non-visit DO Urban Max Work Phone: [facility] Work Phone: Start: 07-29-2023 End: 07-29-2023 ambulatory ARPITA GUSMAN Not Available Start: 07-22-2023 End: 07-22-2023 ambulatory TALITA HAMLINO Not Available Start: 07-21-2023 Non-patient / Non-visit DO Urban Max Work Phone: [facility] Work Phone: Start: 07-08-2023 End: 07-08-2023 flow sheet Arpita Gusman PA Work Phone: [facility] Comment on above: Third trimester preg opal Start: 07-08-2023 End: 07-08-2023 ambulatory ARPITA GUSMAN Not Available Start: 06-24-2023 End: 06-24-2023 ambulatory ARPITA GUSMAN Not Available Start: 09-10-2022 End: 09-10-2022 ambulatory Susanne Huitron Other [facility] [employer] Other Start: 09-10-2022 Telephone encounter Susanne Perez [facility] Start: 08-21-2022 End: 08-21-2022 ambulatory Dontrell Gallegos Other [facility] [employer] Other Start: 08-21-2022 Telephone encounter Dontrell Perez [facility] Start: 08-09-2022 End: 08-09-2022 ambulatory Urban Max Other [facility] [employer] Other Start: 08-09-2022 Telephone encounter Urban Max [facility] Start: 08-06-2022 End: 08-06-2022 ambulatory Urban Max Other [employer] Other Start: 08-06-2022 Telephone encounter Urban Max [facility] Start: 03-26-2022 End: 03-26-2022 ambulatory Urban Max Other [employer] Other Start: 03-26-2022 Telephone encounter Urban Max [facility] Start: 03-01-2022 End: 03-01-2022 ambulatory Urban Max Other [employer] Other Start: 03-01-2022 Encounter for genera l adult medical examination without abnormal findings Urban Max [facility] Start: 03-01-2022 Periodic preventive med est patient 18-39 yrs Urban Max [facility] Start: 02-13-2022 End: 02-13-2022 ambulatory Georgie Nighat Other [employer] Other Start: 02-13-2022 Nursing evaluation o f patient and report Georgie Nighat [facility] Start: 02-11-2022 End: 02-11-2022 ambulatory Georgie Nighat Other [employer] Other Start: 02-11-2022 Nursing evaluation o f patient and report Georgie Nighat [facility] Start: 01-18-2022 End: 01-18-2022 ambulatory Urban Max Other [employer] Other Start: 01-18-2022 Office outpatient visit 15 minutes Urban Max [facility] Start: 01-12-2022 End: 01-12-2022 ambulatory Georgie Nighat Other [employer] Other Start: 01-12-2022 Nursing evaluation o f patient and report Georgie Disla [facility] Start: 03-05-2021 Encounter for genera l adult medical examination without abnormal findings Urban Santana [facility] Start: 03-05-2021 Periodic preventive med est patient 18-39 yrs Urban Santana [facility] Start: 12-16-2020 End: 12-16-[address] [place] [facility] Facility:[facility]1 Procedures Date Procedure Procedure Detail Performing Clinician Start: 05-31-2024 Urnls dip stick/tabl et rgnt non-auto w/o micrscp Talita Hamlino DO Work Phone: Start: 05-21-2024 Blood count complete automated Not In System Ref Prov Start: 05-21-2024 FREE CELL DNA (NON-[place]) Not In System Ref Prov Start: 05-21-2024 Syphilis test non-treponemal antibody qual Not In System Ref Prov Start: 05-21-2024 ALL CBC WITH AUTO DIFF Talita Godinez DO Work Phone: Start: 05-03-2024 Urnls dip stick/tabl et rgnt non-auto w/o micrscp Talita Godinez DO Work Phone: Start: 04-17-2024 [facility] PREG [...] Godinez DO Work Phone: Start: 08-07-2022 Piperacillin/tazobactam Urban Santana Other Plan of Treatment Date Care Activity Detail Author Start: 01-04-2028 Screening for malign ant neoplasm of cervix HPV/Cotest [facility] Start: 01-03-2026 Screening for malign ant neoplasm of cervix [facility] Start: 07-12-2024 End: 07-12-2024 Patient encounter procedure [facility] Start: 07-09-2024 End: 06-08-2025 [facility] with or without consult [facility] with or without consult Imaging Routine Encounter for anatomic survey Expected: 07/09/2024 (Approximate), Expires: 06/08/2025 [facility] Work Phone: Comment on above: Expected: 07/09/2024 (Approximate), Expires: 06/08/2025 Start: 06-28-2024 End: 06-28-2024 Patient encounter procedure 06/28/2024 3:40 PM EST Routine [facility] [address] [place] [id number] Talita Godinez, DO [facility] [place] [address] [address] [facility] Start: 06-22-2024 End: 06-22-2024 Professional / ancillary services management 06/22/2024 1:00 PM EST Ancillary Procedure [facility] [address] [place] [id number] [facility] Start: 05-31-2024 End: 05-31-2025 US for US OB limited 1+ fetuses Imaging Routine Subchorionic hematoma in first trimester, single or unspecified fetus Expected: 05/31/2024, Expires: 05/31/2025 [facility] Work Phone: Comment on above: Expected: 05/31/2024 , Expires: 05/31/2025 Start: 05-31-2024 End: 05-31-2024 Patient encounter procedure [facility] Comment on above: Arrived Start: 05-07-2024 End: 05-07-2024 ambulatory 05/07/2024 10:30 AM EST Initial [facility] [address] [place] [id number] [facility] Start: 05-07-2024 End: 05-07-2024 Professional / ancillary services management 05/07/2024 10:00 AM EST Ancillary Procedure [facility] [address] [place] [address] [facility] Start: 05-03-2024 End: 05-03-2025 ABO/Rh ABO/Rh Lab Routine Missed menses , unspecified gestational age Expected: 05/03/2024 (Approximate), Expires: 05/03/2025 [facility] Comment on above: Expected: 05/03/2024 (Approximate), Expires: 05/03/2025 Start: 05-03-2024 End: 05-03-2025 Blood type and Indirect antibody screen panel - Blood Type and screen Lab Routine Missed menses , unspecified gestational age Expected: 05/03/2024 (Approximate), Expires: 05/03/2025 [facility] Work Phone: Comment on above: Expected: 05/03/2024 (Approximate), Expires: 05/03/2025 Start: 05-03-2024 End: 05-03-2025 Drugs of abuse panel - Urine by Screen method Rapid drug screen, urine Lab Routine , unspecified gestational age Encounter for supervision of normal first in first trimester Expected: 05/03/2024 (Approximate), Expires: 05/03/2025 [facility] Comment on above: Expected: 05/03/2024 (Approximate), Expires: 05/03/2025 Start: 05-03-2024 End: 05-03-2025 US Pelvis transvaginal US OB transvaginal Imaging Routine Missed menses Expected: 05/03/2024 (Approximate), Expires: 05/03/2025 [facility] Comment on above: Expected: 05/03/2024 (Approximate), Expires: 05/03/2025 Start: 05-03-2024 End: 05-03-2024 ambulatory 05/03/2024 11:00 AM EST Initial [facility] [address] [place] [address] [facility] Start: 05-03-2024 End: 05-03-2024 Professional / ancillary services management 05/03/2024 10:30 AM EST Ancillary Procedure [facility] [address] [place] [phone] [facility] Start: 01-25-2024 Influenza vaccination [facility] Start: 09-18-2023 [facility] Start: 01-24-2023 Influenza vaccination Influenza Vacc ine (#1) [facility] Start: 2015 Screening for malign ant neoplasm of cervix Pap Smear [facility] Start: 2013 DTaP,Tdap and Td Vaccines (1 - Tdap) DTaP,Tdap and Td Vaccines (1 - Tdap) [facility] Start: 02-27-2012 Adult BMI Screening Adult BMI Screen ing [facility] Start: 2006 Depression Screening Depression Scre ening [facility] Start: 2006 Tobacco Screening Tobacco Screening [facility] Bacteria identified in Urine by Culture Urine culture Microbiology Routine Missed menses Ordered: 05/03/2024 [facility] Comment on above: Ordered: 05/03/2024 CBC W Auto Different ial panel - Blood CBC and differential Lab Routine Missed menses , unspecified gestational age Ordered: 05/03/2024 [facility] Comment on above: Ordered: 05/03/2024 Hemoglobin A1c/Hemoglobin.total in Blood Hemoglobin A1c Lab Routine Missed menses , unspecified gestational age Ordered: 05/03/2024 [facility] Comment on above: Ordered: 05/03/2024 Hepatitis B virus surface Ag [Presence] in Serum or Plasma by Immunoassay Hepatitis B surface antigen Lab Routine Missed menses , unspecified gestational age Ordered: 05/03/2024 [facility] Comment on above: Ordered: 05/03/2024 Hepatitis C virus Ab [Presence] in Serum or Plasma by Immunoassay Hepatitis C antibody Lab Routine Missed menses , unspecified gestational age Ordered: 05/03/2024 [facility] Comment on above: Ordered: 05/03/2024 HIV-1/HIV-2 antigen/antibody combination immunoassay HIV-1 and HIV-2 antibodies Lab Routine Missed menses , unspecified gestational age Ordered: 05/03/2024 [facility] Comment on above: Ordered: 05/03/2024 Reagin Ab [Presence] in Serum by RPR RPR Lab Routine Missed menses , unspecified gestational age Ordered: 05/03/2024 [facility] Comment on above: Ordered: 05/03/2024 Rubella antibody, IgG Rubella an tibody, IgG Lab Routine Missed menses , unspecified gestational age Ordered: 05/03/2024 [facility] Comment on above: Ordered: 05/03/2024 Immunizations Immunization Date Immunization Notes Care Provider [place] 09-18-2023 influenza virus vaccine, unspecified formulation Arpita GARDNER Work Phone: [facility] 03-20-2021 COVID-19 mRNA-1273 (Moderna) DO Urban Max Work Phone: [facility] 02-27-2021 influenza, seasonal, injectable Urban Max Other [facility] 06-20-2020 COVID-19 mRNA-1273 (Moderna) DO Urban Max Work Phone: [facility] 05-23-2020 COVID-19 mRNA-1273 (Moderna) DO Urban Max Work Phone: [facility] 02-29-2020 influenza, injectable, quadrivalent, contains preservative Urban Max Other [facility] Other 02-29-2020 influenza, injectable, quadrivalent, preservative free DO Urban Max Work Phone: [facility] 02-29-2020 influenza virus vaccine, unspecified formulation Arpita GARDNER Work Phone: [facility] 02-07-2020 influenza, injectable, quadrivalent, contains preservative Patient Objection Urban Max Other [facility] Other NEGATED: Highlighted row has not occurred!02-07-2020 influenza, injectable, quadrivalent, contains preservative Patient Objection Georgie Disla Other [facility] Other Payers Date Payer Category Payer Medicaid HMO [employer] [id number] 2023 Self-pay [id number] 2023 Medicaid [id number] 2023 Private Health Insurance [facility] [id number] 2023 Medicaid [id number] [address] [employer] [id number] 2022-Present [address] [place] [address] [id number] 2022 Unknown [id number] 1995 Unknown [id number] 2.16.840.1.616089.3.579.2. 593 1994 Unknown [id number] 2.16.840.1.169178.3.579.2. 1259 1994 Unknown [id number] 2.16.840.1.930233.3.579.2. 1259 1994 Unknown [id number] 2.16.840.1.305531.3.579.2. 1259 1994 Unknown [id number] 2.16.840.1.876790.3.579.2. 1259 1994 Unknown [id number] 2.16.840.1.567992.3.579.2. 1259 1994 Unknown [id number] 2.16.840.1.592701.3.579.2. 1259 1994 Unknown [id number] 2.16.840.1.024522.3.579.2. 1259 1994 Unknown [id number] 2.16.840.1.225781.3.579.2. 1259 1994 Unknown [id number] 2.16.840.1.416227.3.579.2. 1259 1994 Unknown [id number] 2.16.840.1.759340.3.579.2. 1259 1994 Unknown [id number] 2.16.840.1.955837.3.579.2. 1259 1959 Unknown [id number] Unknown [id number] 2.16.840.1.318134.3.579.2. 531 Unknown [id number] 2.16.840.1.519278.3.579.2. 531 Social History Date Type Detail Facility Unknown if ever smoked [facility] Other Start: 12-03-2022 End: 06-10-2024 Sex Assigned At [facility] [employer] Other Start: 12-01-2022 End: 06-10-2024 Tobacco smoking status NHIS Never smoked tobacco [facility] Start: 07-08-2023 End: 05-31-2024 Alcohol intake Current drinker of alcohol (finding) [facility] Start: 12-03-2022 End: 06-10-2024 History of Social function [facility] Start: 12-01-2022 Alcohol Comment occasional [facility] Start: 11-22-2022 [facility] Start: 1995 Sex Assigned At Not on file [facility] Start: 1995 Sex Assigned At Female F [facility] Tobacco smoking status NHIS Tobacco smoking consumption unknown [facility] Start: 06-04-2024 Sex Female (finding) [facility] Start: 06-10-2024 Alcoholic beverage intake Ex-drinker (finding) [facility] Clinical Notes 03-05-2021 to 06-08-2024 Telephone Encounter - Lizabeth Salazar RN - 06/08/2024 4:05 PM ESTTelephone Encounter - Lizabeth Salazar RN - 06/08/2024 4:05 PM Yasmine Solis LPN - 05/31/2024 1:00 PM EST Note Date & Type Note Facility 06-08-2024 Miscellaneous Notes Formattin g of this note might be different from the original. LMOM for return call to schedule usn/consult. documented in this encounter [facility] 06-08-2024 Telephone encount er Note LMOM for return call to schedule usn/consult. [facility] 05-31-2024 History of Presen t illness Narrative Reason for Appointment: Patient ID: Jarvis Maecdo is a 29 y.o. female who presents for Routine Visit Patient presents today for Return OB appointment. MEDICATIONS Current Outpatient Medications Medication Instructions azithromycin (Zithromax Z-Ry) 250 MG tablet As directed vitamin (Prenatabs Rx) 29-1 MG tablet 1 tablet, Oral, Every morning promethazine (PHENERGAN) 12.5 mg, Oral, Every 6 hours PRN, Take 1 tablet by mouth every 6 hours as needed for nausea. ALLERGIES No Known Allergies PROBLEMS Active Ambulatory Problems Diagnosis Date Noted Abnormal [...] Well woman exam with routine gynecological exam HISTORY PAST MEDICAL HISTORY SOCIAL HISTORY Past Medical History: Diagnosis Date Abnormal uterine bleeding (AUB) Chronic tonsillitis Depression (CMS/[facility]) Depression screening Encounter for female family planning counseling Malodorous urine Nonspecific abnormal results of liver function study Obesity (BMI 30-39.9) Well woman exam with routine gynecological exam Social History Tobacco Use Smoking status: Never Smokeless tobacco: Not on file Substance Use Topics Alcohol use: Yes Comment: occasional Drug use: Never FAMILY HISTORY Family History Problem Relation Name Age of Onset Hypertension Maternal Grandmother Hyperlipidemia Maternal Grandmother Cancer Maternal Grandfather Hypertension Paternal Grandmother Hyperlipidemia Paternal Grandmother Heart disease Paternal Grandmother Cancer Paternal Grandfather Asthma Other migrated family history Coronary artery disease Other migrated family history Stroke Other migrated family history Cancer Other migrated family history Diabetes Other migrated family history Hypertension Other migrated family history SURGICAL HISTORY Past Surgical History: Procedure Laterality Date SECTION, LOW TRANSVERSE 08/2009 SECTION, LOW TRANSVERSE 2017 SECTION, LOW TRANSVERSE 08/04/2023 PAP SMEAR 12/14/2019 negative TONSILLECTOMY 05/12/2012 Chronic Tonsillitis REVIEW OF SYSTEMS Review of Systems: Review of Systems Genitourinary: Positive for vaginal bleeding. All other systems reviewed and are negative. OBJECTIVE Objective: Physical Exam Constitutional: Appearance: Normal appearance. She is well-developed. Cardiovascular: Rate and Rhythm: Normal rate and regular rhythm. Pulmonary: Effort: Pulmonary effort is normal. Breath sounds: Normal breath sounds. Abdominal: General: Bowel sounds are normal. There is no distension. Palpations: Abdomen is soft. Tenderness: There is no abdominal tenderness. There is no guarding or rebound. Musculoskeletal: General: No swelling. Normal range of motion. Right lower leg: No edema. Left lower leg: No edema. Neurological: Mental Status: She is alert and oriented to person, place, and time. Skin: General: Skin is warm and dry. Psychiatric: Mood and Affect: Mood normal. Behavior: Behavior normal. Vitals and nursing note reviewed. Exam conducted with a ceramic engineering professor present. Vitals: Estimated body mass index is 37.31 kg/m as calculated from the following: Height as of 11/18/22: 5' 8.5 . Weight as of this encounter: 249 lb. BP: 118/72 Patient's last menstrual period was 02/27/2024. ASSESSMENT & PLAN ICD-10-CM 1. Second trimester Z34.92 POCT urinalysis dipstick manually resulted 2. 13 weeks gestation of Z3A.13 New OB: Patient presents today for 1st time obstetrics appointment with provider. Patient is currently 13w3d . Patients history has been reviewed in great detail including any potential risks. Patient stated she currently has no complaints. Expectations throughout regarding labs, ultrasounds, and appointments have been discussed with the patient in detail. It was reiterated that the patient is to drink 6-8 glasses of water a day, eat 6 small meals a day, do not consume raw or undercooked meat, and stay away from [facility]. Patient has been consulted regarding any further do's and don'ts of . Patient voiced understanding and all questions and concerns were answered. Discussed with patient seeing [facility] for Level II ultrasound due to subchorionic Hematoma and previous . Patient will have Repeat on 12/12/2024. Updated LMP as initial date was entered in error. Orders Placed This Encounter Procedures US OB limited 1+ fetuses POCT urinalysis dipstick manually resulted Follow Up: Patient is to return in 4 weeks for routine OB appointment. Documented by Mirna Solis LPN on behalf of: Talita Godinez DO documented in this encounter [facility] 05-03-2024 History of Presen t illness Narrative Reason for Appointment: Patient ID: Jarvis Macedo is a 29 y.o. female who presents [...] studies 11/18/2022 Abnormal uterine bleeding 11/18/2022 Depression ([facility]/HCC) 11/18/2022 Generalized anxiety disorder ([facility]) 11/18/2022 Malodorous urine 11/18/2022 Obesity 11/18/2022 [...] or undercooked meat, and stay away from [facility]. Patient has also been advised to [...] Katerina Escobar LPN documented in this encounter [facility] 01-13-2024 History of Presen t illness Narrative Reason for Appointment: Patient ID: Jarvis Macedo is a 28 y.o. female who presents for Weight Management (Adipex #5) Patient presents today via telephone call for a telehealth appointment. Patients Phone #: [phone] (mobile) Current Medications: has a current medication [...] of: KENDRA Palencia documented in this encounter [facility] 07-08-2023 History of Presen t illness Narrative [...] of: KENDRA Palencia documented in this encounter [facility] 08-21-2022 Evaluation note Encounter Date Diagnosis Assessment Notes Jul, Acute non-recurrent frontal sinusitis (ICD-10 - J01.10) [facility] Other 03-14-2023 Evaluation note* Encounter Date Diagnosis Assessment Notes Treatment Notes Treatment Clinical Notes Jul, Dysuria (ICD-10 - R30.0) [facility] Other 11-01-2022 Evaluation note* Encounter Date Diagnosis Assessment Notes Treatment Notes Treatment Clinical Notes Mar, Anxiety (ICD-10 - F41.9) [facility] Other 10-07-2022 Evaluation note* Encounter Date Diagnosis Assessment Notes Treatment Notes Treatment Clinical Notes Feb, Encntr for general adult medical exam w/o abnormal findings (ICD-10 - Z00.00) Feb, Other No change today...Continue as is...FU 6 months.... [facility] Other 09-21-2022 Evaluation note* Encounter Date Diagnosis Assessment Notes Treatment Notes Treatment Clinical Notes Jan, Contact with and (suspected) exposure to other viral communicable diseases (ICD-10 - Z20.828) [facility] Other 09-19-2022 Evaluation note* Encounter Date Diagnosis Assessment Notes Treatment Notes Treatment Clinical Notes Jan, Contact with and (suspected) exposure to other viral communicable diseases (ICD-10 - Z20.828) [facility] Other 08-26-2022 Evaluation note* Encounter Date Diagnosis Assessment Notes Treatment Notes Treatment Clinical Notes Dec, Anxiety (ICD-10 - F41.9) E Rx sent. Lengthy discussion with patient that I think we need to try something than just a straight SSRI. We will see patient back in review. We talked about potential side effects as well as outcomes. She will call with any concerns. [facility] Other 08-20-2022 Evaluation note* Encounter Date Diagnosis Assessment Notes Treatment Notes Treatment Clinical Notes Dec, Contact with and (suspected) exposure to other viral communicable diseases (ICD-10 - Z20.828) [facility] Other 10-11-2021 Evaluation note* Encounter Date Diagnosis Assessment Notes Treatment Notes Treatment Clinical Notes Feb, Encntr for general adult medical exam w/o abnormal findings (ICD-10 - Z00.00) 11 Feb, 2021 Other No change today...Continue as is...FU PRN/Yearly... [facility] Other Evaluation noteNo InformationNort Narr8 Other Evaluation note* Diagnosis Third trimester state, incidental documented in this encounter [facility] noteNo assessment information availableP[facility] Work Phone: Evaluation note* Diagnosis Missed menses , unspecified gestational age Encounter for supervision of normal first in first trimester documented in this encounter [facility]* Diagnosis Weight gain Other symptoms concerning nutrition, metabolism, and development Encounter for weight management documented in this encounter [facility]* Diagnosis Second trimester state, incidental 13 weeks gestation of Subchorionic hematoma in first trimester, single or unspecified fetus documented in this encounter [facility]* Diagnosis Encounter for anatomic survey- Primary documented in this encounter [facility] [employer] SystemHistory general Narrative - Reported* Type Description Date Medical History Hx of MRSA Medical History anxiety Surgical History tonsillectomy and adenoidectomy 2012 Surgical History c-sections 2009 and 2016 Hospitalization History C Sections [facility] Other InstructionsNot on filedocumented in this encounter [facility]Not on filedocumented in this [facility] Summary Purpose Family History No Family History Records FoundNo Family History Records FoundNo Family History Records Found Advance Directives No Advanced Directives Records Found Advance Directive Response Recorded Date/ Time Advance Directives No April 03, 2018 12:04pm Chief Complaint and Reason for Visit Chief Complaint [facility] Additional Source Comments INFORMATION SOURCE (unrecogn ized section and content) DATE CREATED AUTHOR 12/19/2020 [facility] DATE CREATED AUTHOR AUTHOR'S ORGANIZ ATION 05/25/2024 [facility] DATE CREATED AUTHOR AUTHOR'S ORGANIZ ATION 06/23/2024 [facility] EPIC REASON FOR VISIT (unrecogniz ed section and content) Reason Comments Routine Visit Reason Comments Amenorrhea Reason Comments Weight Management Adipex #5 Care Teams (unrecognized sec tion and content) Banking Supervisor Relationship Specialty Start Date End Date Urban Santana MD [address] [phone] PCP - General Family Medicine 11/18/22 Team Status: Active Member Role Status Dates Urban Santana , DO Primary Care Provider Active Team Status: Active Member Role Status Dates Urban Santana , DO Primary Care Provid er, Attending Provider Active Start: July 21, 2023 Team Status: Active Member Role Status Dates Urban Santana , DO Primary Care Provid er, Attending Provider Active Start: August 04, 2023 Team Status: Active Member Role Status Dates Urban Santana , DO Primary Care Provid er, Attending Provider Active Start: August 05, 2023 Team Status: Inactive Member Role Status Dates Urban Santana , DO Primary Care Provider Active Start: September 18, 2023 End: September 18, 2023 aTshi Tom Jr, DO Attending Provider Active S tart: September 18, 2023 End: September 18, 2023 Banking Supervisor Relationship Specialty Start Date End Date Urban Santana MD [address] [phone] PCP - General Family Medicine 11/18/22 Banking Supervisor Relationship Specialty Start Date End Date Urban Santana MD [address] [phone] PCP - General Family Medicine 11/18/22 Banking Supervisor Relationship Specialty Start Date End Date Urban Santana MD [address] [phone] PCP - General Family Medicine 11/18/22 Banking Supervisor Relationship Specialty Start Date End Date Urban Santana MD [address] [phone] PCP - General Family Medicine 11/18/22 Banking Supervisor Relationship Specialty Start Date End Date Urban Santana MD [address] [phone] PCP - [facility] 11/18/22 Banking Supervisor Relationship Specialty Start Date End Date Urban Santana MD [address] [phone] PCP - [facility] 11/18/22 Banking Supervisor Relationship Specialty Start Date End Date Urban Santana MD [address] [phone] PCP - [facility] 11/18/22 Goals (unrecognized section and content) Goals [...] BE BASED ON THE PRIMARY CLINICAL RECORDS. [facility] [employer] [facility]. provides no warranty or guarantee of the accuracy or completeness of information in this document.
--- NOTE | 2024-06-24 00:16 | US_ITS ---
The [address] [address] Patient Name: JARVIS MACEDO MRN: [id number] date: 1995 Sex: F Assigned Patient Location: ER Current Patient Location: ER Accession/Order Number: [id number] Exam Date: 06/24/2024 00:50 Report Date: 06/24/2024 02:26 At the request of: FILEMON ARREDONDO Procedure: US OB transvaginal EXAM: US OB transvaginal HISTORY: 18 weeks, bleed COMPARISON: Pelvic ultrasound examination dated 05/24/2024. TECHNIQUE: Transvaginal ultrasound of the pelvis was performed using Duplex Doppler. FINDINGS: Transabdominal ultrasound demonstrates a gravid uterus. The cervix is closed measuring up to 4.6 cm. The placenta is anterior, and there is no evidence of placenta previa. Subjectively, there is a normal amount of amniotic fluid. There is a 5.9 x 1.5 x 5.6 cm area of possible blood products near the placental tip and internal cervical loss. Of note, measurements were not obtained. cardiac activity is noted at a rate of 138 beats per minute. There is a small amount of free fluid in the pelvis. US/US OB transvaginal IMPRESSION: 1. There is a 5.9 x 1.5 x 5.6 cm area of possible blood products near the placental tip and internal cervical os. Attention on follow-up imaging. 2. Single live intrauterine gestation with a heart rate of 138 bpm. 3. Small amount of free fluid in the pelvis. Electronically authenticated by: Socorro KOCH Date: 06/24/2024 02:26
--- NOTE | 2024-06-24 00:17 | ED_ITS ---
HPI - General Chief complaint: Vaginal Bleeding Stated complaint: VAGINAL BLEEDING, 18 WKS Time Seen by Provider: 06/24/24 00:12 Source: patient Mode of arrival: walk-in Limitations: no limitations History of Present Illness HPI Narrative: 29-year-old female who is approximately 18 weeks presents with vaginal bleeding. She has been having light spotting on and off since March but t onight about 9 PM she had much heavier bleeding. She describes the bleeding as much heavier than regular.. She does not have any abdominal pain or cramps. There has been no trauma. Her blood type is B+ according to EHR. Related Data Home Medications ?Medication ?Instructions ?Recorded ?Confirmed ferrous sulfate 325 mg (65 mg 325 mg PO DAILY 06/26/23 07/03/23 iron) tablet (Feosol) magnesium 200 mg tablet 400 mg PO DAILY 06/26/23 07/03/23 vits,calcium 21-iron fum 1 tab PO DAILY 06/26/23 07/03/23 14 mg iron-folic acid 400 mcg tablet ( Complete) Previous Rx's ?Medication ?Instructions ?Recorded ibuprofen 800 mg tablet 800 mg PO Q8H PRN pain 14 days #40 08/06/23 tabs oxycodone-acetaminophen 5 mg-325 1 tab PO Q6H PRN pain 7 days #28 08/06/23 mg tablet (Percocet) tabs Allergies Allergy/AdvReac Type Severity Reaction Status Date / Time No Known Drug Allergies Allergy Verified 06/26/23 16:17 Review of Systems ROS Narrative A ten point review of systems is negative except as noted above. PFSH PFSH Social History Highest level of school completed/degree received: some college, no degree Little interest or pleasure in doing things: not at all Feeling down, depressed, or hopeless: not at all Exam Narrative Exam Narrative: Nurses note and vital signs reviewed and patient is not hypoxic. General: The patient appears in no apparent distress. Skin: Warm, dry, no pallor noted. There is no rash noted. Head: Normocephalic, atraumatic Eye: Normal conjunctiva, no drainage Ears, Nose, Mouth, and Throat: oral mucosa is moist. Nares patent. Cardiovascular: Regular Rate and Rhythm Respiratory: Patient is in no distress, no accessory muscle use, lungs are clear to auscultation, no wheezing, rales or rhonchi Back: non-tender GI: Soft and nontender Musculoskeletal: The patient has no evidence of calf tenderness, no pitting edema, symmetrical pulses noted bilaterally Neurological: A&O, normal speech Psychiatric: Cooperative Constitutional Vital Signs, click to edit/add: Last Vital Signs Temp 98.1 F 06/24/24 00:08 Pulse 74 06/24/24 01:14 Resp 17 06/24/24 01:14 BP 135/76 06/24/24 01:14 Pulse Ox 100 06/24/24 01:14 O2 Del Method Room Air 06/24/24 00:08 Course Vital Signs Vital signs: Vital Signs Temperature 98.1 F 06/24/24 00:08 Pulse Rate 107 H 06/24/24 00:08 Respiratory Rate 19 06/24/24 00:08 Blood Pressure 139/75 06/24/24 00:08 Pulse Oximetry 99 06/24/24 00:08 Oxygen Delivery Method Room Air 06/24/24 00:08 Temperature 98.1 F 06/24/24 00:08 Pulse Rate 74 06/24/24 01:14 Respiratory Rate 17 06/24/24 01:14 Blood Pressure 135/76 06/24/24 01:14 Pulse Oximetry 100 06/24/24 01:14 Oxygen Delivery Method Room Air 06/24/24 00:08 MDM - OB/Uterine Contractions MDM Narrative Medical decision making narrative: Ultrasound shows live IUP. Subchorionic hemorrhage still present but it appears to be less in size than it was previously. The bleeding appears to have occurred from the subchorionic hemorrhage. She is discharged home and has an appointment with her [employer] doctor in a few days but will call their office in the morning to notify them of tonight's events. Treatment diagnosis and follow- up were discussed with the patient. Differential Diagnosis Differential diagnosis: Likely other (Miscarriage, threatened miscarriage, subchorionic hemorrhage) Lab Data Attestation: I reviewed the patient's lab results. Labs: Lab Results 06/24/24 Range/Units 00:30 WBC 10.5 (4.0-11.0) 10^3/uL RBC 3.95 L (4.20-5.40) 10^6/uL Hgb 11.2 L (12.0-16.0) g/dL Hct 33.3 L (36.0-48.0) % MCV 84.3 (81.0-99.0) fL MCH 28.4 (26.7-34.0) pg MCHC 33.6 (29.9-35.2) g/dL RDW 12.8 (11.0-15.0) % Plt Count 232 (150-450) 10^3/uL MPV 9.6 (9.5-13.5) fL Neut % (Auto) 55.9 (43.0-75.0) % Lymph % (Auto) 36.9 (20.5-60.0) % [place] % (Auto) 5.5 (1.7-12.0) % Eos % (Auto) 1.2 (0.9-7.0) % Baso % (Auto) 0.2 (0.2-2.0) % Neut # (Auto) 5.8 (1.4-6.5) 10^3/uL Lymph # (Auto) 3.9 H (1.2-3.8) 10^3/uL [place] # (Auto) 0.6 (0.3-0.8) 10^3/uL Eos # (Auto) 0.1 (0.0-0.7) 10^3/uL Baso # (Auto) 0.0 (0.0-0.1) 10^3/uL Abs Immat Gran (auto) 0.03 (0.00-0.03) 10^3/uL Imm/Tot Granulo (auto) 0.3 (0.0-0.5) % Sodium 135 L (136-145) mmol/L Potassium 3.4 L (3.5-5.1) mmol/L Chloride 104 (98-107) mmol/L Carbon Dioxide 24.9 (21.0-32.0) mmol/L Anion Gap 9.5 BUN 10.0 (7.0-18.0) mg/dL Creatinine 0.61 (0.55-1.02) mg/dL Est GFR ( Amer) >60 (>=60 mL/min/1.73m^2) Est GFR (Non-Af Amer) >60 (>=60 mL/min/1.73m^2) BUN/Creatinine Ratio 16.4 Glucose 103 (74-106) mg/dL Calcium 8.5 (8.5-10.1) mg/dL Imaging Data Pelvic ultrasound: Radiologist's impression: ITS Impressions Transvaginal US 06/24/24 00:16 IMPRESSION: 1. There is a 5.9 x 1.5 x 5.6 cm area of possible blood products near the placental tip and internal cervical os. Attention on follow-up imaging. 2. Single live intrauterine gestation with a heart rate of 138 bpm. 3. Small amount of free fluid in the pelvis. Electronically authenticated by: Socorro KOCH Date: 06/24/2024 02:26 Discharge Plan Discharge Chief Complaint: Vaginal Bleeding Clinical Impression: Threatened miscarriage Patient Disposition: Home, Self-Care Time of Disposition Decision: 02:35 Condition: Good Mode of Transportation: Private Vehicle Prescriptions / Home Meds: No Action ibuprofen 800 mg tablet 800 mg PO Q8H PRN (Reason: pain) 14 Days Qty: 40 0RF oxycodone-acetaminophen [Percocet] 5-325 mg tablet 1 tab PO Q6H PRN (Reason: pain) 7 Days Qty: 28 0RF Complete 14 mg iron- 400 mcg tablet 1 tab PO DAILY ferrous sulfate [Feosol] 325 mg (65 mg iron) tablet 325 mg PO DAILY magnesium 200 mg tablet 400 mg PO DAILY Print Language: [place] Instructions: Threatened Miscarriage (ED) Additional Instructions: Call Dr. Godinez's office in the morning Referrals: LAXMI MONGE [Primary Care Provider] - 1 week
[2024-06-24 00:42] LABS: Basophils Percent Auto 0.2 % (0.2-2.0); Eosinophils Absolute Auto 0.1 10^3/uL (0.0-0.7); Eosinophils Percent Auto 1.2 % (0.9-7.0); Hematocrit 33.3 % (36.0-48.0); Hemoglobin 11.2 g/dL (12.0-16.0); Immature Granulocytes Abs Auto 0.03 10^3/uL (0.00-0.03); Immature Granulocytes Pct Auto 0.3 % (0.0-0.5); Lymphocytes Absolute Auto 3.9 10^3/uL (1.2-3.8); Lymphocytes Percent Auto 36.9 % (20.5-60.0); Mean Corpuscular HGB Conc 33.6 g/dL (29.9-35.2); Mean Corpuscular Hemoglobin 28.4 pg (26.7-34.0); Mean Corpuscular Volume 84.3 fL (81.0-99.0); Mean Platelet Volume 9.6 fL (9.5-13.5); Monocytes Absolute Auto 0.6 10^3/uL (0.3-0.8); Monocytes Percent Auto 5.5 % (1.7-12.0); Neutrophils Absolute Auto 5.8 10^3/uL (1.4-6.5); Neutrophils Percent Auto 55.9 % (43.0-75.0); Platelet Count 232 10^3/uL (150-450); Red Blood Count 3.95 10^6/uL (4.20-5.40); Red Cell Distribution Width 12.8 % (11.0-15.0); White Blood Count 10.5 10^3/uL (4.0-11.0)
[2024-06-24 00:49] LABS: Anion Gap 9.5; BUN Creatinine Ratio 16.4; Calcium 8.5 mg/dL (8.5-10.1); Carbon Dioxide 24.9 mmol/L (21.0-32.0); Chloride 104 mmol/L (98-107); Estimated GFR (African America >60 (>=60 mL/min/1.73m^2); Estimated GFR (Non-African Ame >60 (>=60 mL/min/1.73m^2); Glucose 103 mg/dL (74-106); Potassium 3.4 mmol/L (3.5-5.1); Sodium 135 mmol/L (136-145)
--- NOTE | 2024-06-24 02:44 | PC.NURSE ---
i gave this patient verbal and written discharge orders and she voices yes to understanding these. at time of discharge this patient voices no concerns and shows no signs of distress
== END 2024-06-24 02:46 | disposition home or self-care (01) ==
PROVIDERS: Emergency Provider Emergency Medicine; PCP Family Medicine
DX: O20.8 Other hemorrhage in early pregnancy (principal); O20.0 Threatened abortion; Z3A.18 18 weeks gestation of pregnancy
CPT/HCPCS: 36415; 76817; 80048; 85025; 99284

== ENCOUNTER 2024-09-07 18:53 | Outpatient (OUT) | payer OTHER, SELFPAY ==
--- NOTE | 2024-09-07 18:58 | US_ITS ---
The [address] [address] Patient Name: JARVIS MACEDO MRN: [id number] date: 1995 Sex: F Assigned Patient Location: [facility] Current Patient Location: Accession/Order Number: [id number] Exam Date: 09/08/2024 07:47 Report Date: 09/08/2024 07:50 At the request of: TALITA LEARY DO Procedure: US OB BPP w non-stress BIOPHYSICAL PROFILE: COMPARISON: 06/24/2024 CLINICAL INFORMATION: SUBCHORIONIC HEMATOMA IN FIRST TRIMESTER O41.8X10 There is a single live intrauterine gestation in cephalic presentation. The reported gestational age is 20 weeks 4 days. The heart rate measures 135 beats per minute. FINDINGS: TONE: 1 or more episodes of activity extension and flexion of extremity or opening and closing of the hand [Y] 2/2 GROSS BODY MOVEMENTS: 3 or more discrete body or limb movements [Y] 2/2 BREATHING MOVEMENTS: 1 or more episodes of breathing lasting at least 30 seconds [Y] 2/2 CATHY: A single deepest vertical pocket of amniotic fluid greater than 2 cm [Y] 2/2 CATHY: 17.5 cm. This is in upper normal range. Total score: 8/8 US/US OB BPP w non-stress IMPRESSION: NORMAL BIOPHYSICAL PROFILE . Impression dictated by: Fouzia Basilio M.D.09/08/2024 7:50 AM Dictation Location: [place] [address] Electronically authenticated by: [id number] Y Date: 09/08/2024 07:50
--- OUTSIDE RECORDS SUMMARY | 2024-09-07 19:07 | XMS_ITS | CCD ---
Author Organization [facility] Care Team Providers Care Tank Cleaner Name Role Phone TARYN, DR GA Primary Care Unavailable MAGUE, DR MAUDE Pathak Admitting Unavailchristiana BOWSER, DR MAUDE Pathak Consulting Unavailabl denise BOWSER, DR MAUDE Pathak Attending Unavailabl Jackie Dhillon Consulting Unavailable Urban Santana Unavailable Georgie Disla Unavailable Dontrell Gallegos Unavailable Susanne Huitron Unavailable Urban Santana MD Primary Care Provider DO Urban Santana Primary Care Provider DO Tashi Tom Jr Attending Provider Urban Santana Primary Care Unavailable Tashi Tom Jr Admitting Unavailable Tashi Tom Jr Attending Unavailable Jesus Godinez Admitting Unavailable Brooke Godinezy Attending Unavailable Urban Santana Primary Care Unavailable Unavailable Primary Care Provider UnavailArpita Gong Unavailable MENDENHALL, JONO MALCOLM Attending Unavailable PCP, NO Referring Unavailable MENDENHALL, JONO MALCOLM Primary Care Unavailable Unavailable Primary Care Provider Unavailabl e HERBERT, JESUS Referring Unavailable HERBERT, JESUS Attending Unavailable ARPITA GUSMAN Attending Unavailable ARPITA GUSMAN Attending Unavailable HERBERT, JESUS Attending Unavailable HERBERT, JESUS Attending Unavailable ARPITA GUSMAN Attending Unavailable HERBERT, JESUS Attending Unavailable MENDENHALL, JONO Attending Unavailable HERBERT, JESUS R Referring Unavailable HERBERT, JESUS R Referring Unavailable HERBERT, JESUS R Referring Unavailable LUCILLE MCCANI Attending Unavailable HERBERT, JESUS R Referring Unavailable CAROLA BROWN Attending Unavailable CAROLA BROWN Referring Unavailable REBEL PEPPER. Admitting Unavailable REBEL PEPPER. Attending Unavailable LUCILLE MCCAIN Consulting Unavailable MAIKEL DAVID Consulting Unavailable CAROLA BROWN Referring Unavailable JESUS GODINEZ Referring Unavailable JESUS GODINEZ Referring Unavailable NATIVID[place] MAN Attending UnavailKEELY Pelayo Referring Unavailable Medications Current Medications Medication Drug Class(es) [...] Jul, Active azithromycin 250 mg oral tablet (20 sources) Macrolide Antimicrobial Start: 05-04-2024 azithromycin (Zithromax Z-Ry) 250 MG tablet Indications: URI, acute As directed 6 tablet 05/04/2024 Active End: 08-17-2024 take 1 tablet by mouth in the morning azithromycin (ZITHROMAX) 250 mg tablet Take 1 tablet (250 mg total) by mouth in the morning. DIRECTED.. 08/17/2024 Discontinued citalopram 20 mg oral tablet (2 sources) [...] 1 tablet Orally Once a day Active ferrous sulfate 325 mg delayed release oral tablet (10 sources) Start: End: take 1 tablet by mouth at mealtime ferrous sulfate (Fe Tabs) 325 (65 Fe) MG EC tablet Indications: 26 weeks gestation of Take 1 tablet (325 mg) by mouth in the morning. Take with meals. Do not crush, chew, or split.. 30 tablet 3 08/23/2024 08/23/2025 Active ibuprofen 200 mg oral tablet (2 sources) Nonsteroidal Anti-inflammatory Drug Motrin IB 200 MG 1 tablet with food or milk as needed Orally Three times a day 800 mg taken at a time. Active magnesium oxide 400 mg oral tablet (20 sources) Start: End: take 1 tablet by mouth once daily magnesium oxide (Mag-Ox) 400 MG tablet Indications: Nonintractable headache, unspecified chronicity pattern, unspecified headache type Take 1 tablet (400 mg) by mouth Daily 30 tablet 11 06/28/2024 07/28/2024 Active Start: 02-13-2023 End: 02-13-2024 take 1 capsule by mouth in the [...] morning. 30 capsule 3 06/11/2023 10/09/2023 Active vit,fntu22-tdgy-ylqxh (PRENATABS FA) 29-1 mg tablet (18 sources) take 1 tablet by mouth in the morning vit,iqhu76-revl-gagek (PRENATABS FA) 29-1 mg tablet Take 1 tablet by mouth in the morning. Suspended take 1 tablet by iliana th in the morning vit,kvud52-lqyt-jkvjo (PRENATAB S FA) 29-1 mg tablet Take 1 tablet by mouth in the morning. Active vitamin (Prenatabs Rx) 29-1 MG tablet (20 sources) Start: 02-02-2024 take 1 tablet by mouth once daily [...] Active promethazine hydrochloride 12.5 mg oral tablet (20 sources) Phenothiazine Start: 05-11-2024 End: 08-17-2024 take 1 tablet by mouth every six [...] disorder, unspecified] Onset: 01-18-2022 Resolved: 01-18-2022 Chronic Deficiency and other anemia (1 source) Iron deficiency anemia; Translations: [Iron deficiency anemia, unspecified] 08-31-2024 Episodic Deficiency and other anemia (2 sources) Iron deficiency anemia secondary to inadequate dietary iron intake; Translations: [Other iron deficiency anemias] Onset: 09-07-2024 09-07-2024 Episodic E Codes: Cut/pierceb (1 source) Contact with sharp glass, initial encounter; Translations: [CONTACT W/SHARP GLASS INITIAL ENC] Onset: 12-19-2020 Episodic Headache; including migraine (2 sources) Headache; Translations: [Nonintractable headache, unspecified chronicity pattern, unspecified headache type] 06-28-2024 Episodic Hemorrhage during ; abruptio placenta; placenta previa (20 sources) Bleeding from female genital tract during ; Translations: [Antepartum hemorrhage, unspecified, unspecified trimester] Onset: 08-12-2024 07-12-2024 Episodic Immunizations and screening for infectious disease (14 sources) Encounter for immunization; Translations: [Contact with and (suspected) exposure to other viral communicable diseases] Onset: 12-19-2020 Resolved: 02-11-2022 Episodic Menstrual disorders (1 source) Missed period; Translations: [Irregular menstruation, unspecified] 05-03-2024 Chronic Mood disorders (20 sources) Depressive disorder; Translations: [Depression] Onset: 11-18-2022 11-18-2022 Chronic Open wounds of extremities (4 sources) Laceration without foreign body of right forearm, initial encounter; Translations: [LACERATION W/O FB RT FORARM INITIAL] Onset: 12-16-2020 Episodic Other complications of (3 sources) Anemia in mother complicating , childbirth AND/OR puerperium; Translations: [Anemia complicating , second trimester] 08-30-2024 Chronic Other complications of (1 source) Anemia complicating , second trimester; Translations: [Anemia complicating , second trimester] Onset: 08-30-2024 Chronic Other complications of (3 sources) Disorder of placenta; Translations: [Unspecified placental disorder, unspecified trimester] 07-12-2024 Episodic Other complications of (2 sources) Placenta accreta, unspecified trimester; Translations: [Placenta accreta, unspecified trimester] Onset: 07-26-2024 Episodic Other complications of (3 sources) ultrasound scan abnormal; Translations: [Abnormal ultrasonic finding on screening of mother] 08-02-2024 Episodic Other complications of (20 sources) Placenta accreta; Translations: [Placenta accreta, unspecified trimester] Onset: 08-12-2024 Resolved: 08-29-2024 08-12-2024 Episodic Other complications of (1 source) Placenta accreta, second trimester; Translations: [Placenta accreta, second trimester] Onset: 08-29-2024 Episodic Other complications of (1 source) Abnormal ultrasonic finding on screening of mother; Translations: [Abnormal ultrasonic finding on screening of mother] Onset: 08-17-2024 Episodic Other complications of (1 source) Unspecified placental disorder, unspecified trimester; Translations: [Unspecified placental disorder, unspecified trimester] Onset: 08-12-2024 Episodic Other eye disorders (20 sources) Bilateral vitreous floaters; Translations: [Other vitreous opacities, bilateral] Onset: 11-18-2022 11-18-2022 Chronic Other female genital disorders (20 sources) Abnormal uterine bleeding; Translations: [Abnormal uterine and vaginal bleeding, unspecified] Onset: 11-18-2022 11-18-2022 Chronic Other female genital disorders (1 source) Vaginal bleeding Onset: 07-12-2024 Chronic Other gastrointestinal disorders (2 sources) Malabsorption - iron; Translations: [Intestinal malabsorption, unspecified] Onset: 09-07-2024 09-07-2024 Chronic Other nutritional; endocrine; and metabolic disorders (20 sources) Obesity; Translations: [Obesity, unspecified] Onset: 11-18-2022 11-18-2022 Chronic Other and delivery including normal (20 sources) Third trimester ; Translations: [Encounter for supervision of normal , unspecified, third trimester] Onset: 05-31-2024 07-08-2023 Episodic Other screening for suspected conditions (not mental disorders or infectious disease) (20 sources) Liver function tests abnormal; Translations: [Abnormal results of liver function studies] Onset: 11-18-2022 11-18-2022 Episodic Other upper respiratory infections (1 source) Acute frontal sinusitis, unspecified Episodic Polyhydramnios and other problems of amniotic cavity (20 sources) Subchorionic hematoma; Translations: [Other specified disorders of amniotic fluid and membranes, first trimester, not applicable or unspecified] Onset: 05-31-2024 05-31-2024 Episodic Previous (1 source) Maternal care for unspecified type scar from previous delivery; Translations: [Maternal care for unspecified type scar from previous delivery] Onset: 07-12-2024 Episodic Residual codes; unclassified (11 sources) Insomnia; Translations: [Insomnia, unspecified] Episodic Residual codes; unclassified (13 sources) Gestation period, 13 weeks; Translations: [13 weeks gestation of ] Onset: 05-31-2024 05-31-2024 Episodic Residual codes; unclassified (2 sources) Gestation period, 18 weeks; Translations: [18 weeks gestation of ] 06-28-2024 Episodic Residual codes; unclassified (1 source) Gestation period, 20 weeks; Translations: [20 weeks gestation of ] 07-12-2024 Episodic Residual codes; unclassified (2 sources) Gestation period, 22 weeks; Translations: [22 weeks gestation of ] 07-26-2024 Episodic Residual codes; unclassified (2 sources) Gestation period, 26 weeks; Translations: [26 weeks gestation of ] 08-23-2024 Episodic Residual codes; unclassified (1 source) History of uterine scar from previous surgery; Translations: [History of uterine scar from previous surgery] Onset: 08-17-2024 Episodic Residual codes; unclassified (1 source) 20 weeks gestation of ; Translations: [20 weeks gestation of ] Onset: 07-12-2024 Episodic Unclassified (4 sources) No additional problems on file Unclassified (1 source) Routine Visit Onset: 08-30-2024 Unclassified (1 source) High Risk Gestation Onset: 08-17-2024 Unclassified (1 source) subchorionic hematoma Onset: 07-12-2024 Past or Other Problems Problem Classification Problem Date Documented Da te Episodic/Chronic Administrative/social admission (2 sources) Patient encounter status; Translations: [Persons encountering health services in other specified circumstances] 01-13-2024 Episodic Genitourinary symptoms and ill-defined conditions (20 sources) Dysuria; Translations: [Malodorous urine] Onset: 11-18-2022 Episodic Joint disorders and dislocations; trauma-related (20 sources) Recurrent dislocation of shoulder region; Translations: [Recurrent dislocation, unspecified shoulder] Onset: 02-21-2009 12-03-2022 Episodic Mood disorders (9 sources) Mood disorders; Translations: [Depression, unspecified] Onset: 08-17-2024 Resolved: 08-30-2024 08-17-2024 Other nutritional; endocrine; and metabolic disorders (2 sources) Weight gain; Translations: [Abnormal weight gain] 01-13-2024 Episodic Unclassified (1 source) Patient encounter status 06-08-2024 Results Test Name Value Interpretation Reference Range Facility Urinalysis macro (dipstick) panel (U)on 08-23-2024 Bilirubin, UA Negative Negative - 4(70) +++ mg/dL [facility] Blood, UA Negative Negative - 50 Rodriguez/mcL [facility] Clarity, UA Clear [facility] Color, UA Yellow [facility] Glucose, UA Negative Negative - 2000(110) ++++ mg/dL [facility] Interpretation and review of laboratory results Normal [facility] Ketones, UA Negative Negative - 160(16) ++++ mg/dL [facility] Leukocytes, UA Negative Negative - 500+++ Dg/mcL [facility] Nitrite, UA Negative Negative - Positive [facility] pH, UA 7.5 5 - 9 [facility] Protein, UA Negative Negative - 1999(20) ++++ mg/dL [facility] Spec Grav, UA 1.015 1 - 1.03 [facility] Urobilinogen, UA 0.2 0.2 - 12 mg/dL [facility] CBC AND AUTO DIFFon 08-19-19 ABSOLUTE BASOPHIL 0.0 X10E9/L Normal 0.0-0.2 [facility] Comment on above: Performed By: #### C BCA #### [facility] ([id number]) [address] [place] [address], [facility] [address] [place] [address] ABSOLUTE NEUTROPHIL 6.7 X10E9/L High 1.5-6.6 [facility] Comment on above: Performed By: #### C BCA #### [facility] ([id number]) [address] [place] [address], [address] [place] [address] Basophils/100 WBC (Bld) 0.2 % Normal [facility] Comment on above: Performed By: #### C BCA #### [facility] ([id number]) [address] [place] [address], [facility] [address] [place] [address] Eosinophils (Bld) [#/Vol] 0.1 10*3/uL Normal 0.0-0.4 [facility] Comment on above: Performed By: #### C BCA #### [facility] ([id number]) [address], [address] [place] [address] Eosinophils/100 WBC (Bld) 0.9 % Normal [facility] Comment on above: Performed By: #### C BCA #### [facility] ([id number]) [address], [address] [place] [address] Erythrocyte distribution width (RBC) [Ratio] 14.0 % Normal 11.5-15.0 [facility] Comment on above: Performed By: #### C BCA #### [facility] ([id number]) [address], [address] [place] [address] Hematocrit (Bld) [Volume fraction] 34.5 % Low 35-47 [facility] Comment on above: Performed By: #### C BCA #### [facility] ([id number]) [address], [address] [place] [address] Hemoglobin (Bld) [Mass/Vol] 11.3 g/dL Low 11.7-15.5 [facility] Comment on above: Performed By: #### C BCA #### [facility] ([id number]) [address], [address] [place] [address] Lymphocytes (Bld) [#/Vol] 2.4 10*3/uL Normal 1.0-3.5 [facility] Comment on above: Performed By: #### C BCA #### [facility] ([id number]) [address], [address] [place] [address] Lymphocytes/100 WBC (Bld) 25.2 % Normal [facility] Comment on above: Performed By: #### C BCA #### [facility] ([id number]) [address], [address] [place] [address] MCH (RBC) [Entitic mass] 26.6 pg Low 27-34 [facility] Comment on above: Performed By: #### C BCA #### [facility] ([id number]) [address], [address] [place] [address] MCHC (RBC) [Mass/Vol] 32.6 g/dL Normal 32-[address] [facility] Comment on above: Performed By: #### C BCA #### [facility] ([id number]) [address], [address] [place] [address] MCV (RBC) [Entitic vol] 82 fL Normal 80-100 [facility] Comment on above: Performed By: #### C BCA #### [facility] ([id number]) [address], [address] [place] [address] Monocytes (Bld) [#/Vol] 0.5 10*3/uL Normal 0-0.9 [facility] Comment on above: Performed By: #### C BCA #### [facility] ([id number]) [address], [address] [place] [address] Monocytes/100 WBC (Bld) 4.8 % Normal [facility] Comment on above: Performed By: #### C BCA #### [facility] ([id number]) [address], [address] [place] [address] Neutrophils/100 WBC (Bld) 68.9 % Normal [facility] Comment on above: Performed By: #### C BCA #### [facility] ([id number]) [address], [address] [place] [address] Platelet mean volume (Bld) [Entitic vol] 7.7 fL Normal 7-12 [facility] Comment on above: Performed By: #### C BCA #### [facility] ([id number]) [address], [address] [place] [address] Platelets (Bld) [#/Vol] 269 10*3/uL Normal 150-450 [facility] Comment on above: Performed By: #### C BCA #### [facility] ([id number]) [address], [address] [place] [address] RBC COUNT 4.24 X10E12/L Normal 3.80-5.20 [facility] Comment on above: Performed By: #### C BCA #### [facility] ([id number]) [address], [address] [place] [address] WBC (Bld) [#/Vol] 9.7 10*3/uL Normal 4.0-11.0 [facility] Comment on above: Performed By: #### C BCA #### [facility] ([id number]) [address], [address] [place] [address] Glucose 1 Hr post dose gluco se [Mass/Vol]on 08-18-2024 1ST HR GTT 87 mg/dL Low 120-170 [facility] Comment on above: Performed By: #### C BCA, 87130-5, PINR, 06501-5, 2276-4, 23265-1, 93522-5 #### [facility] ([id number]) [address], [address] [place] [address] Glucose Glucometer (BldC) [M ass/Vol]on 08-18-2024 Glucose [Mass/Vol] 94 mg/dL Normal 65-99 [facility] KLEIHAUER BETKEon 08-18-2024 KB SPECIMEN TYPE VENOUS Normal [facility] Comment on above: Performed By: #### C BCA, 10012-7, PINR, 11301-3, 2276-4, 06812-1, 76127-3 #### [facility] ([id number]) [address], [address] [place] [address] KLEIHAUER BETKE <0.1 Normal <0.1 [facility] Comment on above: Performed By: #### C BCA, 59971-6, PINR, 10245-7, 2276-4, 11517-1, 51747-8 #### [facility] ([id number]) [address], [address] [place] [address] CBC AND AUTO DIFFon 03-25-20 25 ABSOLUTE BASOPHIL 0.0 X10E9/L Normal 0.0-0.2 [facility] Comment on above: Performed By: #### C BCA, 98647-8, PINR, 47806-8, 2276-4, 80121-0, 59306-6 #### [facility] ([id number]) [address], [address] [place] [address] ABSOLUTE NEUTROPHIL 6.9 X10E9/L High 1.5-6.6 [facility] Comment on above: Performed By: #### C BCA, 52632-6, PINR, 96772-8, 2276-4, 26239-2, 63249-5 #### [facility] ([id number]) [address], [address] [place] [address] Basophils/100 WBC (Bld) 0.3 % Normal [facility] Comment on above: Performed By: #### C BCA, 75536-0, PINR, 56941-8, 2276-4, 52398-4, 26197-8 #### [facility] ([id number]) [address], [address] [place] [address] Eosinophils (Bld) [#/Vol] 0.1 10*3/uL Normal 0.0-0.4 [facility] Comment on above: Performed By: #### C BCA, 00364-8, PINR, 97589-6, 2276-4, 27421-9, 83323-5 #### [facility] ([id number]) [address], [address] [place] [address] Eosinophils/100 WBC (Bld) 0.6 % Normal [facility] Comment on above: Performed By: #### C BCA, 68756-1, PINR, 93539-4, 2276-4, 50713-8, 66559-2 #### [facility] ([id number]) [address], [address] [place] [address] Erythrocyte distribution width (RBC) [Ratio] 13.9 % Normal 11.5-15.0 [facility] Comment on above: Performed By: #### C BCA, 38484-1, PINR, 77125-0, 2276-4, 01951-6, 47335-4 #### [facility] ([id number]) [address], [facility] [address] [place] [address] Hematocrit (Bld) [Volume fraction] 32.5 % Low 35-47 [facility] Comment on above: Performed By: #### C BCA, 60231-5, PINR, 31346-4, 2276-4, 21444-5, 27930-1 #### [facility] ([id number]) [address], [address] [place] [address] Hemoglobin (Bld) [Mass/Vol] 11.0 g/dL Low 11.7-15.5 [facility] Comment on above: Performed By: #### C BCA, 66344-6, PINR, 92557-1, 2276-4, 52594-8, 64246-0 #### [facility] ([id number]) [address], [facility] [address] [place] [address] Lymphocytes (Bld) [#/Vol] 2.5 10*3/uL Normal 1.0-3.5 [facility] Comment on above: Performed By: #### C BCA, 16471-2, PINR, 91360-7, 2276-4, 78902-7, 60722-8 #### [facility] ([id number]) [address], [address] [place] [address] Lymphocytes/100 WBC (Bld) 24.9 % Normal [facility] Comment on above: Performed By: #### C BCA, 50817-3, PINR, 04196-9, 2276-4, 47173-6, 11191-9 #### [facility] ([id number]) [address], [address] [place] [address] MCH (RBC) [Entitic mass] 27.3 pg Normal 27-34 [facility] Comment on above: Performed By: #### C BCA, 00611-1, PINR, 99509-8, 2276-4, 98828-5, 74436-1 #### [facility] ([id number]) [address] [address] [place] [address] MCHC (RBC) [Mass/Vol] 33.8 g/dL Normal 32-[address] [facility] Comment on above: Performed By: #### C BCA, 89214-4, PINR, 76112-8, 2276-4, 30171-6, 30119-8 #### [facility] ([id number]) [address], [address] [place] [address] MCV (RBC) [Entitic vol] 81 fL Normal 80-100 [facility] Comment on above: Performed By: #### C BCA, 64536-1, PINR, 42501-8, 2276-4, 87413-5, 92915-1 #### [facility] ([id number]) [address], [address] [place] [address] Monocytes (Bld) [#/Vol] 0.4 10*3/uL Normal 0-0.9 [facility] Comment on above: Performed By: #### C BCA, 68384-7, PINR, 43920-9, 2276-4, 08391-3, 47514-6 #### [facility] ([id number]) [address] [address] [place] [address] Monocytes/100 WBC (Bld) 4.4 % Normal [facility] Comment on above: Performed By: #### C BCA, 94506-7, PINR, 69675-0, 2276-4, 19409-0, 56918-1 #### [facility] ([id number]) [address], [address] [place] [address] Neutrophils/100 WBC (Bld) 69.8 % Normal [facility] Comment on above: Performed By: #### C BCA, 02511-7, PINR, 30848-1, 2276-4, 44493-7, 69609-3 #### [facility] ([id number]) [address], [address] [place] [address] Platelet mean volume (Bld) [Entitic vol] 8.0 fL Normal 7-12 [facility] Comment on above: Performed By: #### Blaine VALENCIA, 47298-9, PINR, 28876-2, 2276-4, 39700-8, 61255-7 #### [facility] ([id number]) [address], [address] [place] [address] Platelets (Bld) [#/Vol] 247 10*3/uL Normal 150-450 [facility] Comment on above: Performed By: #### C BCA, 97906-0, PINR, 76443-2, 2276-4, 12754-9, 75505-9 #### [facility] ([id number]) [address], [address] [place] [address] RBC COUNT 4.03 X10E12/L Normal 3.80-5.20 [facility] Comment on above: Performed By: #### C BCA, 43322-2, PINR, 75128-6, 2276-4, 43320-6, 64668-9 #### [facility] ([id number]) [address], [address] [place] [address] WBC (Bld) [#/Vol] 9.9 10*3/uL Normal 4.0-11.0 [facility] Comment on above: Performed By: #### C BCA, 22815-5, PINR, 73750-8, 2276-4, 16979-6, 77129-9 #### [facility] ([id number]) [address], [address] [place] [address] CHLAMYDIA/GC PCR, Uon 2024 CHLAMYDIA/GC PCR, U CHLAMYDIA PCR, U Negative (qualifier value) Chlamydia trachomatis not detected by nucleic acid amplification. This does not exclude the possibility of infection because results are dependent on adequate specimen collection. GONORRHOEAE PCR, U Negative (qualifier value) Neisseria gonorrhoeae not detected by nucleic acid amplification. This does not exclude the possibility of infection because results are dependent on adequate specimen collection. Normal [facility] Comment on above: Performed By: #### C BCA, 68879-1, PINR, 37797-3, 2276-4, 19570-2, 26520-7 #### [facility] ([id number]) [address], [address] [place] [address] FERRITINon 08-17-2024 Ferritin [Mass/Vol] 26 ng/mL Normal 11-307 [facility] Comment on above: Performed By: #### C BCA, 89748-6, PINR, 25645-5, 2276-4, 99507-7, 01497-9 #### [facility] ([id number]) [address], [address] [place] [address] Fibrinogen Coagulation.deriv ed (PPP) [Mass/Vol]on 08-17-2024 FIBRINOGEN 418 mg/dL Normal 190-480 [facility] Comment on above: Performed By: #### C BCA, 50960-7, PINR, 77614-7, 2276-4, 71899-1, 24959-7 #### [facility] ([id number]) [address] [place] [address]55 HIV 1+2 Ab+HIV1 p24 Ag IA Ql on 08-17-2024 HIV 1 and 2 Ab/Ag Screen Non-Reactive Normal NRCT [facility] Comment on above: Result Comment: NEW TEST METHOD NOTE This information has been disclosed to you from confidential records protected from disclosure by state law. You shall make no further disclosure of this information without the specific, written and informed release of the individual to whom it pertains, or as otherwise permitted by state law. A general authorization for the release of medical or other information is not sufficient for the purpose of the release of HIV test results or diagnoses. Performed By: #### C BCA, 25425-2, PINR, 18757-7, 2276-4, 02090-2, 81674-0 #### [facility] ([id number]) [facility] [address] [place] [address] PROTIME AND INRon 08-17-2024 INR Coag (PPP) [Relative time] 0.9 {INR} Normal 0.9-1.2 [facility] Comment on above: Performed By: #### C BCA, 06604-5, PINR, 15237-4, 2276-4, 19314-7, 98287-7 #### [facility] ([id number]) [facility] [address] [place] [address] PT Coag (PPP) [Time] 9.9 s Normal 9.8-13.2 [facility] Comment on above: Performed By: #### C BCA, 50182-6, PINR, 11420-9, 2276-4, 89875-6, 81455-7 #### [facility] ([id number]) [facility] [address] [place] [address] T. pallidum IgG+IgM IA Ql (S )on 08-17-2024 Syphilis Total <0.2 Normal 0.0-0.8 [facility] Comment on above: Result Comment: NON REACTIVE No serologic evidence of infection to Treponema pallidum (syphilis). Repeat testing may be considered in patients with suspected acute or primary syphilis in 2 to 4 weeks. Performed By: #### C BCA, 77792-6, PINR, 32328-5, 2276-4, 09325-4, 95636-9 #### [facility] ([id number]) [address], [address] [place] [address] URINALYSISon 08-17-2024 Bilirubin Ql (U) Negative Normal NEG [facility] Comment on above: Performed By: #### U A #### [facility] ([id number]) [address], [address] [place] [address] BLOOD/HGB Small Abnormal NEG [facility] Comment on above: Performed By: #### U A #### [facility] ([id number]) [address], [address] [place] [address] Color (U) YELLOW Normal YELLOW [facility] Comment on above: Performed By: #### U A #### [facility] ([id number]) [address], [address] [place] [address] Glucose Ql (U) Negative Normal NEG [facility] Comment on above: Performed By: #### U A #### [facility] ([id number]) [address], [address] [place] [address] Ketones Ql (U) Negative Normal NEG [facility] Comment on above: Performed By: #### U A #### [facility] ([id number]) [address], [address] [place] [address] Leukocyte esterase Test strip Ql (U) Negative Normal NEG [facility] Comment on above: Performed By: #### U A #### [facility] ([id number]) [address], [address] [place] [address] MUCOUS PRESENT Abnormal NONE [facility] Comment on above: Performed By: #### U A #### [facility] ([id number]) [address], [address] [place] [address] Nitrite Ql (U) Negative Normal NEG [facility] Comment on above: Performed By: #### U A #### [facility] ([id number]) [address], [address] [place] [address] pH (U) 6.5 [pH] Normal 5.0-8.5 [facility] Comment on above: Performed By: #### U A #### [facility] ([id number]) [address], [address] [place] [address] Protein Ql (U) Negative Normal NEG [facility] Comment on above: Performed By: #### U A #### [facility] ([id number]) [address], [address] [place] [address] R.B.CELLS 0 /hpf Normal 0-5 [facility] Comment on above: Performed By: #### U A #### [facility] ([id number]) [address], [address] [place] [address] Specific gravity (U) [Rel density] 1.014 Normal 1.003-1.035 [facility] Comment on above: Performed By: #### U A #### [facility] ([id number]) [address], [address] [place] [address] SQUAMOUS EPITHELIUM 1 /hpf Normal 0-5 [facility] Comment on above: Performed By: #### U A #### [facility] ([id number]) [address], [address] [place] [address] TURBIDITY CLEAR Normal CLEAR [facility] Comment on above: Performed By: #### U A #### [facility] ([id number]) [address], [address] [place] [address] Urinalysis dipstick W Reflex Microscopic panel (U) URINE RECEIVED WITHOUT PRESERVATIVE-DELAYS IN TRANSPORT MAY AFFECT RESULTS.INTERPRET WITH CAUTION AND CLINICAL CORRELATION IS RECOMMENDED. Normal [facility] Comment on above: Performed By: #### U A #### [facility] ([id number]) [address], [address] [place] [address] Urobilinogen (U) [Mass/Vol] mg/dL Normal <1.1 [facility] Comment on above: Performed By: #### U A #### [facility] ([id number]) [address], [address] [place] [address] W.B.CELLS 0 /hpf Normal 0-5 [facility] Comment on above: Performed By: #### U A #### [facility] ([id number]) [address], [address] [address] aPTT Coag (PPP) [Time]on aPTT Coag (Bld) [Time] 24 s Low 26-37 [facility] Comment on above: Performed By: #### C BCA, 00925-5, PINR, 94315-3, 2276-4, 59038-2, 67692-2 #### [facility] ([id number]) [address] [place] [address] MR Pelvis WO contraston 03-1 Radiology Study observation (narrative) [facility] MR Pelvis WO contraston 03-0 [facility] MRI PELVIS WITHOUT CONTRASTo n 07-26-2024 MRI PELVIS WITHOUT CONTRAST EXAM: MRI PELVIS WITHOUT CONTRAST CLINICAL INDICATION: Placental disorder, evaluate for placental accreta; Placenta accreta, antepartum DATE: 07/26/2024 7:23 AM EST TECHNIQUE: Multisequence, multiplanar MR imaging of the pelvis with attention to the placenta without contrast CONTRAST: None COMPARISON: None available. FINDINGS: MATERNAL FINDINGS UTERUS/CERVIX AND PLACENTA * The cervix is closed measuring approximately 3.6 cm. (Series 8 image 8) * The placenta is located along the lower uterus coursing from anteriorly to posteriorly. The posterior aspect of the placenta covers the internal os. Placental cord insertion appears central. * Myometrial thinning with focal outpouching/bulging along the lower left placenta towards the left posterior urinary bladder dome (series 3 images 11-12, series 6 image 11-12) and left lateral aspect of the lower uterine segment. There are several areas of scattered T2 hypointense parenchymal bands throughout the placenta. There is no evidence of extension through the myometrium. * scarring along the low anterior uterus. * On T1-weighted sequences, there is subchorionic hemorrhage along the anterior uterine fundus measuring up to approximately 9 cm in greatest caudal dimension. FETUS Chavira fetus in cephalic presentation. Limited assessment of the fetus demonstrates normal appearance of the ventricles and orbits. Cavum septum pellucidum is present. Extra-axial spaces appear within normal limits. A normal appearance of the lungs, liver, stomach, kidneys, and bladder. Three-vessel cord with normal abdominal cord insertion. 4 extremities are demonstrated. OTHER Normal maternal ovaries, measuring 2.4 x 2.4 x 2.2 cm on the right and 3.4 x 2.2 x 2.2 cm on the left. Visualized portions of the GI tract are unremarkable. No free fluid or focal fluid collection. Normal soft tissues and marrow signal. IMPRESSION: 1. Placenta accreta spectrum involving the left posterolateral aspect of the uterus. 2. Placenta previa. 3. Anterior fundal subchorionic hemorrhage. Approved by Ronit Gongora MD on 07/26/2024 3:43 PM EST I have personally reviewed the images and I agree with this report. Report Verified by: Karyn Shirley MD at 07/27/2024 1:41 PM EST Normal [facility] Urinalysis macro (dipstick) panel (U)on 07-26-2024 Bilirubin, UA Negative Negative - 4(70) +++ mg/dL [facility] Blood, UA Negative Negative - 50 Rodriguez/mcL [facility] Clarity, UA Clear [facility] Color, UA Yellow [facility] Glucose, UA Negative Negative - 1999(110) ++++ mg/dL [facility] Interpretation and review of laboratory results Normal [facility] Ketones, UA Negative Negative - 160(16) ++++ mg/dL [facility] Leukocytes, UA Negative Negative - 500+++ Dg/mcL [facility] Nitrite, UA Negative Negative - Positive [facility] pH, UA 6 5 - 9 [facility] Protein, UA Negative Negative - 2000(20) ++++ mg/dL [facility] Spec Grav, UA 1.03 1 - 1.03 [facility] Urobilinogen, UA 0.2 0.2 - 12 mg/dL [facility] Urinalysis macro (dipstick) panel (U)on 06-28-2024 Bilirubin, UA Negative Negative - 4(70) +++ mg/dL [facility] Blood, UA Negative Negative - 50 Rodriguez/mcL [facility] Clarity, UA Clear [facility] Color, UA Yellow [facility] Glucose, UA Negative Negative - 1999(110) ++++ mg/dL [facility] Interpretation and review of laboratory results Normal [facility] Ketones, UA Negative Negative - 160(16) ++++ mg/dL [facility] Leukocytes, UA Negative Negative - 500+++ Dg/mcL [facility] Nitrite, UA Negative Negative - Positive [facility] pH, UA 7 5 - 9 [facility] Protein, UA Negative Negative - 1999(20) ++++ mg/dL [facility] Spec Grav, UA 1.025 1 - 1.03 [facility] Urobilinogen, UA 0.2 0.2 - 12 mg/dL [facility] US OB LIMITED 1+ FETUSESon 0 06-22-2024 [...] report is generated using voice recognition reporting (PowerScribe). On occasion PowerScribe erroneously drops words from the report or replaces the spoken word with similar sounding words. Please call with any questions/concerns regarding this report.* Dictated and transcribed 06/22/24/dpamber This report has been electronically signed and approved by the interpreting radiologist. Normal Not Available Comment on above: Order Comment: US OB PLACENTA W US OB TRANSVAGINAL Estimated Date of Delivery: 12/03/24 Gestational Age as of 05/31/2024: 13w3d Urinalysis macro (dipstick) panel (U)on 05-31-2024 Bilirubin, UA Negative Negative - 4(70) +++ mg/dL [facility] Blood, UA Negative Negative - 50 Rodriguez/mcL [facility] Clarity, UA Clear [facility] Color, UA Yellow [facility] Glucose, UA Negative Negative - 2000(110) ++++ mg/dL [facility] Interpretation and review of laboratory results Normal [facility] Ketones, UA Negative Negative - 160(16) ++++ mg/dL [facility] Leukocytes, UA Negative Negative - 500+++ Dg/mcL [facility] Nitrite, UA Negative Negative - Positive [facility] pH, UA 6 5 - 9 [facility] Protein, UA Negative Negative - 2000(20) ++++ mg/dL [facility] Spec Grav, UA 1.005 1 - 1.03 [facility] Urobilinogen, UA 0.2 0.2 - 12 mg/dL [facility] ALL CBC WITH AUTO DIFFon BASOPHILS ABSOLUTE AUTO 0 [facility] Basophils/100 WBC (Bld) 0.3 % 0.2 - 2.0 % [facility] Eosinophils/100 WBC (Bld) 1.2 % 0.9 - 7.0 % [facility] Erythrocyte distribution width (RBC) [Ratio] 12.8 % 11.0 - 15.0 % [facility] IMMATURE GRANULOCYTES ABS AUTO 0.02 [facility] Immature granulocytes/100 WBC (Bld) 0.3 % 0.0 - 0.5 % [facility] Interpretation and review of laboratory results Abnormal [facility] LYMPHOCYTES ABSOLUTE AUTO 1.9 [facility] Lymphocytes/100 WBC (Bld) 24.2 % 20.5 - 60.0 % [facility] MCH (RBC) [Entitic mass] 28.7 pg 26.7 - 34.0 pg [facility] MCHC (RBC) [Mass/Vol] 33.5 g/dL 29.9 - 35.2 g/dL [facility] MCV (RBC) [Entitic vol] 85.6 fL 81.0 - 99.0 fL [facility] MONOCYTES ABSOLUTE AUTO 0.5 [facility] Monocytes/100 WBC (Bld) 5.9 % 1.7 - 12.0 % [facility] NEUTROPHILS ABSOLUTE AUTO 5.3 [facility] Neutrophils/100 WBC (Bld) 68.1 % 43.0 - 75.0 % [facility] Platelet mean volume (Bld) [Entitic vol] 9.2 fL Low 9.5 - 13.5 fL [facility] TBH EO # 0.1 [facility] TB PLT 233 [facility] RBC 4.36 [facility] WBC 7.8 [facility] CBC without diffon Platelets (Bld) [#/Vol] 233 10*3/uL [facility] Drug Screen, Urineon 024 Amphetamine/Methampheta mine Negative [facility] Barbiturates Negative [facility] Benzodiazepines Negative [facility] Cocaine Metabolite Negative [facility] Ecstasy Negative [facility] Methadone Negative [facility] Opiates Negative [facility] Oxycodone Negative [facility] Phencyclidine Negative [facility] Thc Marijuana, Urine Negative [facility] Free Cell DNAon 2023 Free Cell Dna LOW RISK [facility] HIV 1&2 AB/AG Screen (P24 AG )on 05-21-2024 HIV 1&2 AB/AG Non-Reactive [facility] Hepatitis B surface antigeno n 05-21-2024 Hepatitis B Surface Antigen Non-Reactive [facility] Hepatitis C(HCV) Ab w/ Refle x to PCRon 05-21-2024 HCV Ab Ql (S) Non-Reactive [facility] Laboratory - Hematology and Cell countson 05-21-2024 Hematocrit (Bld) [Volume fraction] 37.3 % [facility] Hemoglobin (Bld) [Mass/Vol] 12.5 g/dL [facility] No Panel Informationon 05-21 [facility] Rubella IGG immune statuson 05-21-2024 Rubella immune IgG 2.97 IMMUNE [facility] Syphilis Total(Unknown Syphi lis Status)on 05-21-2024 Syphilis Non-Reactive [facility] Type and screenon 05-21-2024 Abo/Rh(D) Positive [facility] Urine Cultureon 05-21-2024 Bacteria identified Cx Nom (U) 20,000 colonies/ml mixed bacterial skin contaminants 2 Days PERFORMED BY: [facility] [address] [place] [address] PATHOLOGIST PEELER OPERATOR HIRO GILLETTE M.D. Normal [facility] Comment on above: Performed By: #### C UU #### [facility] [address] HCG ( test) Ql (U)o n 05-03-2024 Interpretation and review of laboratory results Abnormal [facility] Preg Test, Ur Positive Negative [facility] Urinalysis macro (dipstick) panel (U)on 05-03-2024 Bilirubin, UA Negative Negative - 4(70) +++ mg/dL [facility] Blood, UA Negative Negative - 50 Rodriguez/mcL [facility] Clarity, UA Clear [facility] Color, UA Yellow [facility] Glucose, UA Negative Negative - 1999(110) ++++ mg/dL [facility] Interpretation and review of laboratory results Normal [facility] Ketones, UA Negative Negative - 160(16) ++++ mg/dL [facility] Leukocytes, UA Negative Negative - 500+++ Dg/mcL [facility] Nitrite, UA Negative Negative - Positive [facility] pH, UA 6 5 - 9 [facility] Protein, UA Negative Negative - 2000(20) ++++ mg/dL [facility] Spec Grav, UA 1.01 1 - 1.03 [facility] Urobilinogen, UA 1.0 0.2 - 12 mg/dL [facility]H PREG QUANT HCGon 024 HCG QUANTITATIVE 96640 mIU/mL [facility] Comment on above: 5-50 0.2-1 WEEK 50-500 1-2 WEEKS 100-5,000 2-3 WEEKS 500-10,000 3-4 WEEKS 1,000-50,000 4-5 WEEKS 10,000-100,000 5-6 WEEKS 15,000-200,000 6-8 WEEKS 10,000-100,000 2-3 MONTHS [facility] PREG QUANT HCGon 024 HCG QUANTITATIVE 53237 mIU/mL [facility] Comment on above: 5-50 0.2-1 WEEK 50-500 1-2 WEEKS 100-5,000 2-3 WEEKS 500-10,000 3-4 WEEKS 1,000-50,000 4-5 WEEKS 10,000-100,000 5-6 WEEKS 15,000-200,000 6-8 WEEKS 10,000-100,000 2-3 MONTHS [facility] PREG QUANT HCGon 024 HCG QUANTITATIVE 6694 mIU/mL [facility] Comment on above: 5-50 0.2-1 WEEK 50-500 1-2 WEEKS 100-5,000 2-3 WEEKS 500-10,000 3-4 WEEKS 1,000-50,000 4-5 WEEKS 10,000-100,000 5-6 WEEKS 15,000-200,000 6-8 WEEKS 10,000-100,000 2-3 MONTHS [facility] PREG QUANT HCGon 024 HCG QUANTITATIVE 3710 mIU/mL [facility] Comment on above: 5-50 0.2-1 WEEK 50-500 1-2 WEEKS 100-5,000 2-3 WEEKS 500-10,000 3-4 WEEKS 1,000-50,000 4-5 WEEKS 10,000-100,000 5-6 WEEKS 15,000-200,000 6-8 WEEKS 10,000-100,000 2-3 MONTHS [facility] Alanine aminotransferase [En zymatic activity/volume] in Serum or PlasmaOrdered By: Georgie Calvo on 09-18-2023 ALT [Catalytic activity/Vol] 23 U/L Normal 7-52 [facility] Comment on above: Performed By: #### N ICOTINE QUAL #### [facility] , #### CMP wRFX A1C, EBS LIPID #### [facility] [address] Albumin [Mass/volume] in Ser um or Plasma by Bromocresol green (BCG) dye binding methoOrdered By: Georgie Lubna on 09-18-2023 Albumin BCG dye [Mass/Vol] 4.7 g/dL 3.5-5.7 [facility] Alkaline phosphatase [Enzyma tic activity/volume] in Serum or PlasmaOrdered By: Georgie Lubna on 09-18-2023 ALP [Catalytic activity/Vol] 72 U/L Normal 34-104 [facility] Comment on above: Performed By: #### N ICOTINE QUAL #### [facility] , #### CMP wRFX A1C, EBS LIPID #### [facility] [address] Aspartate aminotransferase [ Enzymatic activity/volume] in Serum or PlasmaOrdered By: Georgie Calvo on 09-18-2023 AST [Catalytic activity/Vol] 26 U/L Normal 13-39 [facility] Comment on above: Performed By: #### N ICOTINE QUAL #### [facility] , #### CMP wRFX A1C, EBS LIPID #### [facility] [address] Bilirubin.total [Mass/volume ] in Serum or PlasmaOrdered By: Georgie Calvo on 09-18-2023 Bilirubin [Mass/Vol] 0.7 mg/dL Normal 0.3-1.0 [facility] Comment on above: Performed By: #### N ICOTINE QUAL #### [facility] , #### CMP wRFX A1C, EBS LIPID #### [facility] [address] [place] [address] [place] CMP with reflex to A1Con Albumin [Mass/Vol] 4.7 g/dL Normal 3.5-5.7 [facility] Comment on above: Performed By: #### N ICOTINE QUAL #### [facility] , #### CMP wRFX A1C, EBS LIPID #### [facility] [address] [place] [address] [place] GFR/1.73 sq M.predicted MDRD (S/P/Bld) [Vol rate/Area] mL/min/{1.73_m2} Normal [facility] Comment on above: Performed By: #### N ICOTINE QUAL #### [facility] , #### CMP wRFX A1C, EBS LIPID #### [facility] [address] [place] [address] [place] Calcium [Mass/volume] in Ser um or PlasmaOrdered By: Georgie Calvo on 09-18-2023 Calcium [Mass/Vol] 10.1 mg/dL Normal 8.6-10.3 [facility] Comment on above: Performed By: #### N ICOTINE QUAL #### [facility] , #### CMP wRFX A1C, EBS LIPID #### [facility] [address] [place] [address] [place] Carbon dioxide, total [Moles /volume] in Serum or PlasmaOrdered By: Georgie Calvo on 09-18-2023 CO2 [Moles/Vol] 28.5 mmol/L Normal 21.0-31.0 [facility] Comment on above: Performed By: #### N ICOTINE QUAL #### [facility] , #### CMP wRFX A1C, EBS LIPID #### [facility] [address], [place] [id number] [place] Chloride [Moles/volume] in S fabiana or PlasmaOrdered By: Georgie Calvo on 09-18-2023 Chloride [Moles/Vol] 101 mmol/L Normal 98-107 [facility] Comment on above: Performed By: #### N ICOTINE QUAL #### [facility] , #### CMP wRFX A1C, EBS LIPID #### [facility] [address] [place] [id number] [place] Cholesterol [Mass/volume] in Serum or PlasmaOrdered By: Georgie Calvo on 09-18-2023 Cholesterol [Mass/Vol] 239 mg/dL High 140-200 [facility] Comment on above: Chol less than 200 m g/dl low riskChol 201-239 mg/dl borderline riskChol 240 mg/dl and greater high risk Result Comment: Chol less than 200 mg/dl low risk Chol 201-239 mg/dl borderline risk Chol 240 mg/dl and greater high risk Performed By: #### N ICOTINE QUAL #### [facility] , #### CMP wRFX A1C, EBS LIPID #### [facility] [address] [place] [address] [place] Cholesterol in LDL Calc [Mas s/Vol]Ordered By: Georgie Calvo on 09-18-2023 Cholesterol in LDL [Mass/Vol] 154 mg/dL 0-100 [facility] Comment on above: LDL ATP III CLASSIFI CATIONLDL less than 100 mg/dL OptimalLDL 100-129 mg/dL Near or above optimalLDL 130-159 mg/dL Borderline highLDL 160-189 mg/dL HighLDL greater than 189 mg/dL Very high Cholesterol in VLDL Calc [Ma ss/Vol]Ordered By: Georgie Calvo on 09-18-2023 Cholesterol in VLDL [Mass/Vol] 14 mg/dL [facility] Creatinine [Mass/volume] in Serum or PlasmaOrdered By: Georgie Calvo on 09-18-2023 Creatinine [Mass/Vol] 0.79 mg/dL Normal 0.60-1.20 [facility] Comment on above: Performed By: #### N ICOTINE QUAL #### [facility] , #### CMP wRFX A1C, EBS LIPID #### [facility] [address] [place] [address] [place] Glucose [Mass/volume] in Ser um or PlasmaOrdered By: Georgie Calvo on 09-18-2023 Glucose [Mass/Vol] 78 mg/dL Normal 70-100 [facility] Comment on above: Performed By: #### N ICOTINE QUAL #### [facility] , #### CMP wRFX A1C, EBS LIPID #### [facility] [address] [id number] [place] Lipid Profileon 09-18-2023 LDL Cholesterol,Calculated 154 mg/dL High 0-100 [facility] Comment on above: Result Comment: LDL ATP III CLASSIFICATION LDL less than 100 mg/dL Optimal LDL 100-129 mg/dL Near or above optimal LDL 130-159 mg/dL Borderline high LDL 160-189 mg/dL High LDL greater than 189 mg/dL Very high Performed By: #### N ICOTINE QUAL #### [facility] , #### CMP wRFX A1C, EBS LIPID #### [facility] [address] Triglyceride w/Reflex 73 mg/dL Normal 0-149 [facility] Comment on above: Result Comment: TRIG ATP III CLASSIFICATION TRIG less than 150 mg/dL Normal TRIG 150-199 mg/dL Borderline high TRIG 200-500 mg/dL High TRIG greater than 500 mg/dL Very high Standard traceable to the Center for Disease Conrtrol and Prevention (CDC) test method. Performed By: #### N ICOTINE QUAL #### [facility] , #### CMP wRFX A1C, EBS LIPID #### [address] VLDL CHOLESTEROL 14 mg/dL Normal [facility] Comment on above: Performed By: #### N ICOTINE QUAL #### [facility] , #### CMP wRFX A1C, EBS LIPID #### [address] Nicotine Metabolite, Qualon 09-18-2023 Nicotine Metabolite Negative Normal Cutoff=25 [facility] Comment on above: Result Comment: Perf ormed at: BN - [facility] [address] [id number] Extension Forester: Josh Ortez MD, Phone: [phone] PERFORMED BY: [place] [address] PATHOLOGIST PEELER OPERATOR ROBERT WEBB M.D. Performed By: #### N ICOTINE QUAL #### [facility] , #### CMP wRFX A1C, EBS LIPID #### [facility] [address] No Panel InformationOrdered By: Georgie Calvo on 09-18-2023 Estimated GFR (CKD-EPI) > 60.0 mL/Min [facility] Creatinine Clearance (Chem N/A [facility] Potassium [Moles/volume] in Serum or PlasmaOrdered By: Georgie Calvo on 09-18-2023 Potassium [Moles/Vol] 4.0 mmol/L Normal 3.5-5.1 [facility] Comment on above: Performed By: #### N ICOTINE QUAL #### [facility] , #### CMP wRFX A1C, EBS LIPID #### [facility] [address] [place] [address] Protein [Mass/volume] in Ser um or PlasmaOrdered By: Georgie Calvo on 09-18-2023 Protein [Mass/Vol] 7.1 g/dL Normal 6.4-8.9 [facility] Comment on above: Performed By: #### N ICOTINE QUAL #### [facility] , #### CMP wRFX A1C, EBS LIPID #### [facility] [address] [place] [address] Serum globulin measurement b y calculation (mass/volume)Ordered By: Georgie Calvo on 09-18-2023 Globulin (S) [Mass/Vol] 2.4 g/dL Normal [facility] Comment on above: Performed By: #### N ICOTINE QUAL #### [facility] , #### CMP wRFX A1C, EBS LIPID #### [facility] [address] [place] [address] Serum or plasma albumin/glob ulin mass ratioOrdered By: Georgie Calvo on 09-18-2023 Albumin/Globulin [Mass ratio] 2.0 {ratio} Normal [facility] Comment on above: Performed By: #### N ICOTINE QUAL #### [facility] , #### CMP wRFX A1C, EBS LIPID #### [facility] [address] Serum or plasma anion gap de terminationOrdered By: Georgie Calvo on 09-18-2023 Anion gap [Moles/Vol] 12.5 mmol/L Normal 6.0-15.0 [facility] Comment on above: Performed By: #### N ICOTINE QUAL #### [facility] , #### CMP wRFX A1C, EBS LIPID #### [facility] [address] Serum or plasma high density lipoprotein (HDL) cholesterol measurementOrdered By: Georgie Calvo on 09-18-2023 Cholesterol in HDL [Mass/Vol] 70 mg/dL Normal 23-92 [facility] Comment on above: HDL CHOL ATP-III CLA SSIFICATION Cardiovascular RiskHDL > or equal to 60 mg/dL LOWHDL < 40 mg/dL HIGH Result Comment: HDL CHOL ATP-III CLASSIFICATION Cardiovascular Risk HDL > or equal to 60 mg/dL LOW HDL < 40 mg/dL HIGH Performed By: #### N ICOTINE QUAL #### [facility] , #### CMP wRFX A1C, EBS LIPID #### [facility] [address] [place] [address] Serum or plasma total choles terol/high density lipoprotein (HDL) cholesterol mass ratOrdered By: Georgie Calvo on 09-18-2023 Cholesterol.total/[place] sterol in HDL [Mass ratio] 3.4 {ratio} Normal <5.0 [facility] Comment on above: Result Comment: PERF ORMED BY: [place] [address] PATHOLOGIST PEELER OPERATOR ROBERT WEBB M.D. Performed By: #### N ICOTINE QUAL #### [facility] , #### CMP wRFX A1C, EBS LIPID #### [facility] [address] [place] [address] [place] Sodium [Moles/volume] in Ser um or PlasmaOrdered By: Georgie Calvo on 09-18-2023 Sodium [Moles/Vol] 138 mmol/L Normal 136-145 [facility] Comment on above: Performed By: #### N ICOTINE QUAL #### [facility] , #### CMP wRFX A1C, EBS LIPID #### [facility] [address] Triglyceride [Mass/volume] i n Serum or PlasmaOrdered By: Georgie Calvo on 09-18-2023 Triglyceride [Mass/Vol] 73 mg/dL 0-149 [facility] Comment on above: TRIG ATP III CLASSIF ICATIONTRIG less than 150 mg/dL NormalTRIG 150-199 mg/dL Borderline highTRIG 200-500 mg/dL High TRIG greater than 500 mg/dL Very highStandard traceable to the Center for Disease Conrtrol and Prevention (CDC) test method. Urea nitrogen [Mass/volume] in Serum or PlasmaOrdered By: Georgie Calvo on 09-18-2023 Urea nitrogen [Mass/Vol] 14 mg/dL Normal 7-25 [facility] Comment on above: Performed By: #### N ICOTINE QUAL #### [facility] , #### CMP wRFX A1C, EBS LIPID #### [facility] [address] Basophils Auto (Bld) [#/Vol] on 08-05-2023 Basophils (Bld) [#/Vol] 0.0 10 3/uL 0.0-0.1 [facility] Basophils/100 WBC Auto (Bld) on 08-05-2023 Basophils/100 WBC (Bld) 0.2 % 0.2-2.0 [facility] Eosinophils/100 WBC Auto (Bl d)on 08-05-2023 Eosinophils/100 WBC (Bld) 0.1 % 0.9-7.0 [facility] Erythrocyte distribution wid th Auto (RBC) [Ratio]on 08-05-2023 Erythrocyte distribution width (RBC) [Ratio] 13.8 % 11.0-15.0 [facility] Hematocrit Auto (Bld) [Volum e fraction]on 08-05-2023 Hematocrit (Bld) [Volume fraction] 33.5 % 36.0-48.0 [facility] Hemoglobin [Mass/volume] in Bloodon 08-05-2023 Hemoglobin (Bld) [Mass/Vol] 10.7 g/dL 12.0-16.0 [facility] Laboratory - Hematology and Cell countson 08-05-2023 Immature granulocytes/100 WBC (Bld) 0.5 % 0.0-0.5 [facility] Leukocytes [#/volume] correc oneal for nucleated erythrocytes in Blood by Automated counon 08-05-2023 WBC corrected for nucl RBC Auto (Bld) [#/Vol] 19.3 10 3/uL 4.0-11.0 [facility] Lymphocytes Auto (Bld) [#/Vo l]on 08-05-2023 Lymphocytes (Bld) [#/Vol] 1.7 10 3/uL 1.2-3.8 [facility] Lymphocytes/100 WBC Auto (Bl d)on 08-05-2023 Lymphocytes/100 WBC (Bld) 9.0 % 20.5-60.0 [facility] MCH Auto (RBC) [Entitic mass ]on 08-05-2023 MCH (RBC) [Entitic mass] 27.9 pg 26.7-34.0 [facility] MCHC Auto (RBC) [Mass/Vol]on 08-05-2023 MCHC (RBC) [Mass/Vol] 31.9 g/dL 29.9-35.2 [facility] MCV Auto (RBC) [Entitic vol] on 08-05-2023 MCV (RBC) [Entitic vol] 87.2 fL 81.0-99.0 [facility] Monocytes Auto (Bld) [#/Vol] on 08-05-2023 Monocytes (Bld) [#/Vol] 0.5 10 3/uL 0.3-0.8 [facility] Monocytes/100 WBC Auto (Bld) on 08-05-2023 Monocytes/100 WBC (Bld) 2.8 % 1.7-12.0 [facility] Neutrophils Auto (Bld) [#/Vo l]on 08-05-2023 Neutrophils (Bld) [#/Vol] 16.9 10 3/uL 1.4-6.5 [facility] Neutrophils/100 WBC Auto (Bl d)on 08-05-2023 Neutrophils/100 WBC (Bld) 87.4 % 43.0-75.0 [facility] No Panel Informationon 08-04 Eosinophils # (Auto) 0.0 10 3/uL 0.0-0.7 [facility] Immature Granulocyte # (Auto) 0.09 10 3/uL 0.00-0.03 [facility] Platelet mean volume Auto (B ld) [Entitic vol]on 08-05-2023 Platelet mean volume (Bld) [Entitic vol] 10.4 fL 9.5-13.5 [facility] Platelets Auto (Bld) [#/Vol] on 08-05-2023 Platelets (Bld) [#/Vol] 199 10 3/uL 150-450 [facility] RBC Auto (Bld) [#/Vol]on RBC (Bld) [#/Vol] 3.84 10 6/uL 4.20-5.40 [facility] Basophils Auto (Bld) [#/Vol] on 08-04-2023 Basophils (Bld) [#/Vol] 0.0 10 3/uL 0.0-0.1 [facility] Basophils/100 WBC Auto (Bld) on 08-04-2023 Basophils/100 WBC (Bld) 0.2 % 0.2-2.0 [facility] Buprenorphine [Presence] in Urineon 08-04-2023 Buprenorphine Ql (U) Negative NEGATIVE [facility] Comment on above: DRUG CLASS TEST SYST EM CUT-OFF CONCENTRATIONS ARE ASFOLLOWS:AMP (Amphetamine): 500 ng/mLBAR (Barbiturates): 200 ng/mLBZO (Benzodiazepines): 150 ng/mLBUP (Buprenorphine): 10 ng/mLCOC (Cocaine): 150 ng/mLmAMP (Methamphetamine): 500 ng/mLMTD (Methadone): 200 ng/mLOPI (Opiates): 100 ng/mLOXY (Oxycodone): 100 ng/mLPCP (Phencyclidine): 25 ng/mLTHC (Cannabinoids): 50 ng/mLTCA (Trycyclic Antidepressants): 300 ng/mL Eosinophils/100 WBC Auto (Bl d)on 08-04-2023 Eosinophils/100 WBC (Bld) 0.4 % 0.9-7.0 [facility] Erythrocyte distribution wid th Auto (RBC) [Ratio]on 08-04-2023 Erythrocyte distribution width (RBC) [Ratio] 13.7 % 11.0-15.0 [facility] Hematocrit Auto (Bld) [Volum e fraction]on 08-04-2023 Hematocrit (Bld) [Volume fraction] 37.3 % 36.0-48.0 [facility] Hemoglobin [Mass/volume] in Bloodon 08-04-2023 Hemoglobin (Bld) [Mass/Vol] 12.1 g/dL 12.0-16.0 [facility] - Drug toxicology on 08-04-2023 Amphetamines Ql (U) Negative NEGATIVE [facility] Benzod[facility]ines [facility]l (U) [facility] Coc[facility] Ql (U) Negative NEGATIVE [facility] Opiates Ql (U) Negative NEGATIVE [facility] Phencyclidine Ql (U) Negative NEGATIVE [facility] Laboratory - Hematology and Cell countson 08-04-2023 Immature granulocytes/100 WBC (Bld) 0.3 % 0.0-0.5 [facility] Leukocytes [#/volume] correc oneal for nucleated erythrocytes in Blood by Automated counon 08-04-2023 WBC corrected for nucl RBC Auto (Bld) [#/Vol] 11.9 10 3/uL 4.0-11.0 [facility] Lymphocytes Auto (Bld) [#/Vo l]on 08-04-2023 Lymphocytes (Bld) [#/Vol] 3.4 10 3/uL 1.2-3.8 [facility] Lymphocytes/100 WBC Auto (Bl d)on 08-04-2023 Lymphocytes/100 WBC (Bld) 28.8 % 20.5-60.0 [facility] MCH Auto (RBC) [Entitic mass ]on 08-04-2023 MCH (RBC) [Entitic mass] 27.8 pg 26.7-34.0 [facility] MCHC Auto (RBC) [Mass/Vol]on 08-04-2023 MCHC (RBC) [Mass/Vol] 32.4 g/dL 29.9-35.2 [facility] MCV Auto (RBC) [Entitic vol] on 08-04-2023 MCV (RBC) [Entitic vol] 85.6 fL 81.0-99.0 [facility] Methadone [Presence] in Urin e by Screen methodon 08-04-2023 Methadone Screen Ql (U) Negative NEGATIVE [facility] Monocytes Auto (Bld) [#/Vol] on 08-04-2023 Monocytes (Bld) [#/Vol] 0.5 10 3/uL 0.3-0.8 [facility] Monocytes/100 WBC Auto (Bld) on 08-04-2023 Monocytes/100 WBC (Bld) 4.6 % 1.7-12.0 [facility] Neutrophils Auto (Bld) [#/Vo l]on 08-04-2023 Neutrophils (Bld) [#/Vol] 7.8 10 3/uL 1.4-6.5 [facility] Neutrophils/100 WBC Auto (Bl d)on 08-04-2023 Neutrophils/100 WBC (Bld) 65.7 % 43.0-75.0 [facility] No Panel Informationon 08-03 Eosinophils # (Auto) 0.1 10 3/uL 0.0-0.7 [facility] Immature Granulocyte # (Auto) 0.04 10 3/uL 0.00-0.03 [facility] Urine Barbiturates Screen Negative NEGATIVE [facility] Urine Marijuana (THC) Screen Negative NEGATIVE [facility] Urine Methamphetamines Screen Negative NEGATIVE [facility] Platelet mean volume Auto (B ld) [Entitic vol]on 08-04-2023 Platelet mean volume (Bld) [Entitic vol] 10.0 fL 9.5-13.5 [facility] Platelets Auto (Bld) [#/Vol] on 08-04-2023 Platelets (Bld) [#/Vol] 228 10 3/uL 150-450 [facility] RBC Auto (Bld) [#/Vol]on RBC (Bld) [#/Vol] 4.36 10 6/uL 4.20-5.40 [facility] tricyclic antidepressa nt measurementon 08-04-2023 Tricyclic antidepressants (U) [Mass/Vol] Negative NEGATIVE [facility] oxyCODONE+oxyMORphone [Prese nce] in Urine by Screen methodon 08-04-2023 oxyCODONE+oxyMORphone Screen Ql (U) Negative NEGATIVE [facility] Basophils Auto (Bld) [#/Vol] on 07-21-2023 Basophils (Bld) [#/Vol] 0.0 10 3/uL 0.0-0.1 [facility] Basophils/100 WBC Auto (Bld) on 07-21-2023 Basophils/100 WBC (Bld) 0.3 % 0.2-2.0 [facility] Eosinophils/100 WBC Auto (Bl d)on 07-21-2023 Eosinophils/100 WBC (Bld) 0.6 % 0.9-7.0 [facility] Erythrocyte distribution wid th Auto (RBC) [Ratio]on 07-21-2023 Erythrocyte distribution width (RBC) [Ratio] 13.4 % 11.0-15.0 [facility] Hematocrit Auto (Bld) [Volum e fraction]on 07-21-2023 Hematocrit (Bld) [Volume fraction] 38.1 % 36.0-48.0 [facility] Hemoglobin [Mass/volume] in Bloodon 07-21-2023 Hemoglobin (Bld) [Mass/Vol] 12.3 g/dL 12.0-16.0 [facility] Laboratory - Hematology and Cell countson 07-21-2023 Immature granulocytes/100 WBC (Bld) 0.3 % 0.0-0.5 [facility] Leukocytes [#/volume] correc oneal for nucleated erythrocytes in Blood by Automated counon 07-21-2023 WBC corrected for nucl RBC Auto (Bld) [#/Vol] 10.7 10 3/uL 4.0-11.0 [facility] Lymphocytes Auto (Bld) [#/Vo l]on 07-21-2023 Lymphocytes (Bld) [#/Vol] 2.8 10 3/uL 1.2-3.8 [facility] Lymphocytes/100 WBC Auto (Bl d)on 07-21-2023 Lymphocytes/100 WBC (Bld) 25.8 % 20.5-60.0 [facility] MCH Auto (RBC) [Entitic mass ]on 07-21-2023 MCH (RBC) [Entitic mass] 27.9 pg 26.7-34.0 [facility] MCHC Auto (RBC) [Mass/Vol]on 07-21-2023 MCHC (RBC) [Mass/Vol] 32.3 g/dL 29.9-35.2 [facility] MCV Auto (RBC) [Entitic vol] on 07-21-2023 MCV (RBC) [Entitic vol] 86.4 fL 81.0-99.0 [facility] Monocytes Auto (Bld) [#/Vol] on 07-21-2023 Monocytes (Bld) [#/Vol] 0.4 10 3/uL 0.3-0.8 [facility] Monocytes/100 WBC Auto (Bld) on 07-21-2023 Monocytes/100 WBC (Bld) 4.1 % 1.7-12.0 [facility] Neutrophils Auto (Bld) [#/Vo l]on 07-21-2023 Neutrophils (Bld) [#/Vol] 7.4 10 3/uL 1.4-6.5 [facility] Neutrophils/100 WBC Auto (Bl d)on 07-21-2023 Neutrophils/100 WBC (Bld) 68.9 % 43.0-75.0 [facility] No Panel Informationon 07-21 Eosinophils # (Auto) 0.1 10 3/uL 0.0-0.7 [facility] Immature Granulocyte # (Auto) 0.03 10 3/uL 0.00-0.03 [facility] Platelet mean volume Auto (B ld) [Entitic vol]on 07-21-2023 Platelet mean volume (Bld) [Entitic vol] 9.8 fL 9.5-13.5 [facility] Platelets Auto (Bld) [#/Vol] on 07-21-2023 Platelets (Bld) [#/Vol] 220 10 3/uL 150-450 [facility] RBC Auto (Bld) [#/Vol]on RBC (Bld) [#/Vol] 4.41 10 6/uL 4.20-5.40 [facility] Urinalysis macro (dipstick) panel (U)on 07-08-2023 Bilirubin, UA Negative Negative - 4(70) +++ mg/dL [facility] Blood, UA Negative Negative - 50 Rodriguez/mcL [facility] Clarity, UA Clear [facility] Color, UA Yellow [facility] Glucose, UA Negative Negative - 1999(110) ++++ mg/dL [facility] Interpretation and review of laboratory results Abnormal [facility] Ketones, UA Negative Negative - 160(16) ++++ mg/dL [facility] Leukocytes, UA Positive Negative - 500+++ Dg/mcL [facility] Nitrite, UA Negative Negative - Positive [facility] pH, UA 5.5 5 - 9 [facility] Protein, UA Negative Negative - 1999(20) ++++ mg/dL [facility] Spec Grav, UA 1.015 1 - 1.03 [facility] Urobilinogen, UA 1.0 0.2 - 12 mg/dL [facility] Urine Cultureon 08-07-2022 Urine Culture >100,000 [facility] Other Urine Culture <16 Susceptible [place] Other Urine Culture <8/4 Susceptible [facility] Other Urine Culture >16 Resistant [facility] Other Urine Culture <4 Susceptible [facility] Other Urine Culture <2 Susceptible [facility] Other Urine Culture <1 Susceptible [facility] Other Urine Culture <0.25 Susceptible [facility] Other Urine Culture <0.5 Susceptible [place] Other Urine Culture >8 Resistant [facility] Other Urine Culture <32 Susceptible [facility] Other Urine Culture 4 Susceptible [place] Other Urine Culture >2/38 Resistant [facility] Other SARS-CoV-2 (COVID-19) RNA NA A+probe Ql (Resp)on 02-13-2022 SARS-CoV-2 (COVID-19) RNA CLAY+probe Ql (Unsp spec) Positive [facility] Other SARS-CoV-2 (COVID-19) RNA NA A+probe Ql (Resp)on 02-11-2022 SARS-CoV-2 (COVID-19) RNA CLAY+probe Ql (Unsp spec) Negative [facility] Other SARS-CoV-2 (COVID-19) RNA NA A+probe Ql (Resp)on 01-12-2022 SARS-CoV-2 (COVID-19) RNA CLAY+probe Ql (Unsp spec) Negative [facility] Other XR FOREARM RT 2Von XR FOREARM [...] by: JACKIE WILLETT Date: 2020-12-16 14:53 Normal [facility] Vital Signs Date Time Vital Sign Value Performing Clinician Facility 08-30-2024 14:04-0400 Body mass index (BMI) [Ratio] 40.74 kg/m2 Natividad Man MD Work Phone: [employer] 08-30-2024 14:04-0400 Body weight 125.15 kg Natividad Man MD Work Phone: [facility] 08-30-2024 14:04-0400 Diastolic blood pressure 78 mm[Hg] Natividad Man MD Work Phone: [facility] 08-30-2024 14:04-0400 Systolic blood pressure 106 mm[Hg] Natividad Man MD Work Phone: [facility] 08-17-2024 14:36-0400 Body mass index (BMI) [Ratio] 41.25 kg/m2 Carola Brown MD Work Phone: [facility] 08-17-2024 14:36-0400 Body weight 123.02 kg Carola Brown MD Work Phone: [facility] 08-17-2024 14:36-0400 Diastolic blood pressure 68 mm[Hg] Carola Brown MD Work Phone: [facility] 08-17-2024 14:36-0400 Systolic blood pressure 108 mm[Hg] Carola Brown MD Work Phone: [facility] 08-12-2024 08:37-0400 Body height 172.7 cm Lucille Mccain MD Work Phone: [facility] 08-12-2024 08:37-0400 Body mass index (BMI) [Ratio] 41.06 kg/m2 Lucille Mccain MD Work Phone: [facility] 08-12-2024 08:37-0400 Body weight 122.47 kg Lucille Mccain MD Work Phone: [facility] 08-12-2024 08:37-0400 Diastolic blood pressure 83 mm[Hg] Lucille Mccain MD Work Phone: [facility] 08-12-2024 08:37-0400 Heart rate 96 /min Lucille Mccain MD Work Phone: [facility] 08-12-2024 08:37-0400 Systolic blood pressure 122 mm[Hg] Lucille Mccain MD Work Phone: [facility] 07-12-2024 14:24-0500 Heart rate 80 /min Jono Mendenhall MD Work Phone: [facility] 07-12-2024 13:10-0500 Body height 172.7 cm Jono Mendenhall MD Work Phone: [facility] 07-12-2024 13:10-0500 Body mass index (BMI) [Ratio] 39.81 kg/m2 Jono Mendenhall MD Work Phone: [facility] 07-12-2024 13:10-0500 Body weight 118.75 kg Jono Mendenhall MD Work Phone: [facility] 07-12-2024 13:10-0500 Diastolic blood pressure 76 mm[Hg] Jono Mendenhall MD Work Phone: [facility] 07-12-2024 13:10-0500 Systolic blood pressure 122 mm[Hg] Jono Mendenhall MD Work Phone: [facility] 06-28-2024 15:39-0500 Body mass index (BMI) [Ratio] 38.36 kg/m2 Jesus Herbert DO Work Phone: [facility] 06-28-2024 15:39-0500 Body weight 116.12 kg Jesus Herbert DO Work Phone: [facility] 06-28-2024 15:39-0500 Diastolic blood pressure 70 mm[Hg] Jesus Herbert DO Work Phone: [facility] 06-28-2024 15:39-0500 Systolic blood pressure 120 mm[Hg] Jesus Herbert DO Work Phone: [facility] 06-10-2024 14:51-0500 Body height 174 cm Jono Mendenhall MD Work Phone: [facility] 05-31-2024 13:33-0500 Body mass index (BMI) [Ratio] 37.31 kg/m2 Jesus Herbert DO Work Phone: [facility] 05-31-2024 13:33-0500 Body weight 112.95 kg Jesus Herbert DO Work Phone: [facility] 05-31-2024 13:33-0500 Diastolic blood pressure 72 mm[Hg] Jesus Herbert DO Work Phone: [facility] 05-31-2024 13:33-0500 Systolic blood pressure 118 mm[Hg] Jesus Herbert DO Work Phone: [facility] 01-13-2024 13:38-0400 Body mass index (BMI) [Ratio] 33.56 kg/m2 Arpita May PA Work Phone: [facility] 01-13-2024 13:38-0400 Body weight 101.61 kg Arpita Kingston PA Work Phone: [facility] 01-13-2024 13:38-0400 Diastolic blood pressure 74 mm[Hg] Arpita Kingston PA Work Phone: [facility] 01-13-2024 13:38-0400 Systolic blood pressure 116 mm[Hg] Arpita May PA Work Phone: [facility] 07-08-2023 13:27-0500 Body mass index (BMI) [Ratio] 38.51 kg/m2 Arpita May PA Work Phone: [facility] 07-08-2023 13:27-0500 Body weight 116.57 kg Arpita May PA Work Phone: [facility] 07-08-2023 13:27-0500 Diastolic blood pressure 70 mm[Hg] Arpita Kingston PA Work Phone: [facility] 07-08-2023 13:27-0500 Systolic blood pressure 112 mm[Hg] Arpita Kingston PA Work Phone: [facility] 03-01-2022 09:00-0400 Body height 175.26 cm Urban Santana Other [facility] Other 03-01-2022 09:00-0400 Body mass index (BMI) [Ratio] 33.81 kg/m2 Urban Max Other [facility] Other 03-01-2022 09:00-0400 Body temperature 97.9 [degF] Urban Max Other [facility] Other 03-01-2022 09:00-0400 Body weight 103.87 kg Urban Max Other [facility] Other 03-01-2022 09:00-0400 Diastolic blood pressure 80 mm[Hg] Urban Max Other [facility] Other 03-01-2022 09:00-0400 Respiratory rate 20 /min Urban Max Other [facility] Other 03-01-2022 09:00-0400 SaO2% (BldA) [Mass fraction] 97 % Urban Max Other [facility] Other 03-01-2022 09:00-0400 Systolic blood pressure 118 mm[Hg] Urban Max Other [facility] Other 01-18-2022 09:45-0400 Body height 175.26 cm Urban Max Other [facility] Other 01-18-2022 09:45-0400 Body mass index (BMI) [Ratio] 32.93 kg/m2 Urban Max Other [facility] Other 01-18-2022 09:45-0400 Body temperature 97.3 [degF] Urban Max Other [facility] Other 01-18-2022 09:45-0400 Body weight 101.15 kg Urban Max Other [facility] Other 01-18-2022 09:45-0400 Diastolic blood pressure 72 mm[Hg] Urban Max Other [facility] Other 01-18-2022 09:45-0400 Respiratory rate 20 /min Urban Max Other [facility] Other 01-18-2022 09:45-0400 SaO2% (BldA) [Mass fraction] 98 % Urban Max Other [facility] Other 01-18-2022 09:45-0400 Systolic blood pressure 112 mm[Hg] Urban Max Other [facility] Other 03-05-2021 16:15-0400 Body height 175.26 cm Urban Max Other [facility] Other 03-05-2021 16:15-0400 Body mass index (BMI) [Ratio] 35.14 kg/m2 Urban Max Other [facility] Other 03-05-2021 16:15-0400 Body weight 107.96 kg Urban Max Other [facility] Other 03-05-2021 16:15-0400 Diastolic blood pressure 68 mm[Hg] Urban Max Other [facility] Other 03-05-2021 16:15-0400 Respiratory rate 20 /min Urban Santana Other [facility] Other 03-05-2021 16:15-0400 SaO2% (BldA) [Mass fraction] 98 % Urban Andrewsgles Other [facility] Other 03-05-2021 16:15-0400 Systolic blood pressure 110 mm[Hg] Urban Andrewsgles Other [facility] Other Encounters Encounter Date Encounter Type Care Provider Facility Start: 09-07-2024 End: 09-07-2024 Office outpatient new 45 minutes René Ascencio SHINGLE SAWYER-RN NEW GRADUATE Work Phone: [facility] Comment on above: Iron deficiency anem ia secondary to inadequate dietary iron intake (Primary Dx); Placenta accreta, second trimester; Anemia affecting in second trimester; Iron malabsorption Start: 09-03-2024 End: 09-03-2024 Telephone encounter René Ascencio SHINGLE SAWYER-RN NEW GRADUATE Work Phone: [facility] Start: 09-02-2024 End: 09-02-2024 Telephone encounter Yesica Bunn RN Maternal- Medic ine at [facility] Start: 08-31-2024 End: 08-31-2024 Telephone encounter René Ascencio SHINGLE SAWYER-RN NEW GRADUATE [facility] Comment on above: Iron deficiency anem ia, unspecified iron deficiency anemia type (Primary Dx) Start: 08-30-2024 End: 08-30-2024 Patient encounter procedure Natividad Man MD Work Phone: [facility] Comment on above: GA: 27w3d Start: 08-30-2024 End: 08-30-2024 ambulatory NATIVIDAD MAN [facility] Start: 08-23-2024 End: 08-23-2024 Office outpatient visit 15 minutes Jesus Herbert DO Work Phone: [facility] Comment on above: Second trimester pre gnancy; 26 weeks gestation of Start: 08-23-2024 End: 08-23-2024 ambulatory JESUS GODINEZ Not Available Start: 08-23-2024 End: 08-23-2024 Bamboo flowsheet Jesus Herbert DO Work Phone: [facility] Start: 08-23-2024 End: 08-23-2024 Bamboo flowsheet Jesus Herbert DO Work Phone: [facility] Start: 08-20-2024 End: 08-20-2024 Orders Only Bessie Beckford MD Work Phone: [facility] - Labor Comment on above: Placenta previa ante in second trimester (Primary Dx); Placenta accreta affecting delivery; Subchorionic hematoma, antepartum, single or unspecified fetus Start: 08-19-2024 End: 08-19-2024 Evaluation and management of inpatient JESUS R [facility] Start: 08-18-2024 End: 08-18-2024 Evaluation and management of inpatient JESUS R [facility] Start: 08-17-2024 End: 08-17-2024 ambulatory CAROLA Cisco BROWN [facility] Start: 08-17-2024 End: 08-20-2024 Evaluation and management of inpatient REBELMarilyn PEPPER [facility] Start: 08-17-2024 End: 08-17-2024 Initial care visit Carola Brown MD Work Phone: [facility] - Women[facility] Services Comment on above: GA: 25w4d Start: 08-17-2024 End: 08-17-2024 ambulatory CAROLA BROWN [facility] Start: 08-12-2024 End: 08-12-2024 Office outpatient visit 25 minutes Gage Regan MD Work Phone: Maternal- Medicine at [facility] Comment on above: Placenta previa ante in second trimester (Primary Dx); Placenta accreta affecting delivery Start: 08-12-2024 End: 08-12-2024 ambulatory JESUS R HERBERT [facility] Start: 08-06-2024 End: 08-06-2024 Telephone encounter Arpita Pond LPN Maternal- Medic ine at [facility] Start: 08-02-2024 End: 08-02-2024 Orders Only Not In System Ref Prov Maternal- Medicine at [facility] Comment on above: Abnormal ultrasonic finding on screening of mother, antepartum (Primary Dx) Start: 07-30-2024 End: 07-30-2024 Telephone encounter Jono Mendenhall MD Work Phone: Maternal- Medicine at [facility] Start: 07-26-2024 End: 07-26-2024 Office outpatient visit 15 minutes Jesus Herbert DO Work Phone: [facility] Comment on above: Second trimester pre gnancy; 22 weeks gestation of ; Diabetes mellitus screening Start: 07-26-2024 End: 07-26-2024 ambulatory JESUS HERBERT Not Available Start: 07-26-2024 End: 07-26-2024 Bamboo flowsheet Jesus Herbert DO Work Phone: [facility] Start: 07-26-2024 End: 07-26-2024 Bamboo flowsheet Jesus Herbert DO Work Phone: [facility] Start: 07-26-2024 End: 07-26-2024 ambulatory JONO MENDENHALL [facility] Start: 07-23-2024 End: 07-23-2024 Telephone encounter Yesica Bunn RN Maternal- Medic ine at [facility] Start: 07-13-2024 End: 07-13-2024 Telephone encounter Yesica Bunn RN Maternal- Medic ine at [facility] Comment on above: Placental problem af fecting fourth (Primary Dx) Start: 07-12-2024 End: 07-12-2024 Office outpatient new 60 minutes Jono Mendenhall MD Work Phone: Maternal- Medicine at [facility] Comment on above: 20 weeks gestation o f (Primary Dx); History of delivery affecting ; Vaginal bleeding in ; Placenta previa antepartum in second trimester; 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 Start: 07-12-2024 End: 07-12-2024 ambulatory JESUS R HERB[facility] Start: 06-28-2024 End: 06-28-2024 Office outpatient visit 15 minutes Jesus Herbert DO Work Phone: [facility] Comment on above: 18 weeks gestation o f ; Second trimester ; Screening, , for anatomic survey; Nonintractable headache, unspecified chronicity pattern, unspecified headache type Start: 06-28-2024 End: 06-28-2024 ambulatory JESUS HERBERT Not Available Start: 06-28-2024 End: 06-28-2024 Bamboo flowsheet Jesus Herbert DO Work Phone: [facility] Start: 06-28-2024 End: 06-28-2024 Bamboo flowsheet Jesus Herbert DO Work Phone: [facility] Start: 06-22-2024 End: 06-22-2024 ambulatory JESUS HERBERT Not Available Start: 06-10-2024 End: 06-10-2024 Chart abstracting Jono Mendenhall MD Work Phone: Maternal- Medicine at [facility] Start: 06-08-2024 End: 06-08-2024 Telephone encounter Lizabeth Salazar RN Maternal- Medic ine at [facility] Comment on above: Encounter for anatomic survey (Primary Dx) Start: 05-31-2024 End: 05-31-2024 Bamboo flowsheet Jesus Herbert DO Work Phone: [facility] Start: 05-31-2024 End: 05-31-2024 Bamboo flowsheet Jesus Herbert DO Work Phone: [facility] Start: 05-31-2024 End: 05-31-2024 Office outpatient visit 15 minutes Jesus Herbert DO Work Phone: [facility] Comment on above: Second trimester pre gnancy; 13 weeks gestation of ; Subchorionic hematoma in first trimester, single or unspecified fetus Start: 05-31-2024 End: 05-31-2024 ambulatory JESUS HERBERT Not Available Start: 05-21-2024 End: 05-21-2024 ambulatory Jesus Herbert Facility:[facility] Start: 05-21-2024 End: 05-21-2024 Clinisync Result Encounter Jesus Herbert DO Work Phone: [facility] Unsolicited Start: 05-21-2024 End: 05-21-2024 Clinisync Result Encounter Jesus Herbert DO Work Phone: [facility] Unsolicited Start: 05-03-2024 End: 05-03-2024 ambulatory JESUS HERBERT Not Available Start: 05-03-2024 End: 05-03-2024 Office outpatient visit 5 minutes [facility] Herbert Nurse [facility] Comment on above: GA: 9w3d Start: 04-17-2024 End: 04-17-2024 Clinisync Result Encounter Jesus Herbert DO Work Phone: [facility] Unsolicited Start: 04-17-2024 End: 04-17-2024 Clinisync Result Encounter Jesus Herbert DO Work Phone: [facility] Unsolicited Start: 04-15-2024 End: 04-15-2024 Clinisync Result Encounter Jesus Herbert DO Work Phone: [facility] Unsolicited Start: 04-15-2024 End: 04-15-2024 Clinisync Result Encounter Jesus Herbert DO Work Phone: [facility] Unsolicited Start: 04-02-2024 End: 04-02-2024 Clinisync Result Encounter Jesus Herbert DO Work Phone: [facility] Unsolicited Start: 04-02-2024 End: 04-02-2024 Clinisync Result Encounter Jesus Herbert DO Work Phone: [facility] Unsolicited Start: 03-31-2024 End: 03-31-2024 Clinisync Result Encounter Jesus Herbert DO Work Phone: [facility] Unsolicited Start: 03-31-2024 End: 03-31-2024 Clinisync Result Encounter Jesus Herbert DO Work Phone: [facility] [...] Departed Referred DO Urban Max Work Phone: [facility] [address] Work Phone: Start: 09-18-2023 End: 09-18-2023 ambulatory DO Urban M. Max Work Phone: [facility] Work Phone: Start: 09-16-2023 End: 09-16-2023 ambulatory ARPITA GUSMAN Not Available Start: 08-05-2023 Non-patient / Non-visit DO Set h Max Work Phone: [facility] Work Phone: Start: 08-04-2023 Non-patient / Non-visit DO Set h Max Work Phone: [facility] Work Phone: Start: 07-21-2023 Non-patient / Non-visit DO Set h Max Work Phone: [facility] Work Phone: Start: 07-08-2023 End: 07-08-2023 flow sheet Arpita May PA Work Phone: [facility] Comment on above: Third trimester preg carola Start: 09-10-2022 End: 09-10-2022 ambulatory Susanne Huitron Other [facility] [employer] Other Start: 09-10-2022 Telephone encounter Susanne Perez [facility] Start: 08-21-2022 End: 08-21-2022 ambulatory Dontrell Gallegos Other [employer] Other Start: 08-21-2022 Telephone encounter Dontrell Perez [facility] Start: 08-09-2022 End: 08-09-2022 ambulatory Urban Max Other [employer] Other Start: 08-09-2022 Telephone encounter Urban Max [facility] Start: 08-06-2022 End: 08-06-2022 ambulatory Urban Max Other [employer] Other Start: 08-06-2022 Telephone encounter Urban Max [facility] Start: 03-26-2022 End: 03-26-2022 ambulatory Urban Max Other [employer] Other Start: 03-26-2022 Telephone encounter [facility] Start: 03-01-2022 End: 03-01-2022 ambulatory Urban Max Other [employer] Other Start: 03-01-2022 Encounter for genera l adult medical examination without abnormal findings Urban Max [facility] Start: 03-01-2022 Periodic preventive med est patient 18-[address] [facility] Start: 02-13-2022 End: 02-13-2022 ambulatory Georgie Nighat Other [employer] Other Start: 02-13-2022 Nursing evaluation o f patient and report Georgie Nighat [facility] Start: 02-11-2022 End: 02-11-2022 ambulatory Georgie Nighat Other [employer] Other Start: 02-11-2022 Nursing evaluation o f patient and report Georgie Nighat [facility] Start: 01-18-2022 End: 01-18-2022 ambulatory Urban Max Other [employer] Other Start: 01-18-2022 Office outpatient vi sit [address] [facility] Start: 01-12-2022 End: 01-12-2022 ambulatory Georgie Nighat Other [employer] Other Start: 01-12-2022 Nursing evaluation o f patient and report Georgie Nighat [facility] Start: 03-05-2021 Encounter for genera l adult medical examination without abnormal findings Urban Max [facility] Start: 03-05-2021 Periodic preventive med est patient 18-[address] [facility] Start: 12-16-2020 End: 12-16-[address] [place] [facility] Facility:[facility]1 Procedures Date Procedure Procedure Detail Performing Clinician Start: 08-30-2024 Adult depression screening assessment Natividad Man MD Work Phone: Start: 08-23-2024 Urnls dip stick/tabl et rgnt non-auto w/o micrscp Jesus Herbert DO Work Phone: Start: 08-17-2024 H/O: section History of 3 sections Carola Brown MD Work Phone: Start: 08-17-2024 Adult depression screening assessment Carola Brown MD Work Phone: Start: 07-26-2024 Urnls dip stick/tabl et rgnt non-auto w/o micrscp Jesus Herbert DO Work Phone: Start: 07-26-2024 Mri pelvis w/o contr ast material Not In System Ref Prov Start: 06-28-2024 Urnls dip stick/tabl et rgnt non-auto w/o micrscp Jesus Herbert DO Work Phone: Start: 05-31-2024 Urnls dip stick/tabl et rgnt non-auto w/o micrscp Jesus Herbert DO Work Phone: Start: 05-21-2024 Antibody screen Carola king MD Work Phone: Start: 05-21-2024 Blood count complete automated Not In System Ref Prov Start: 05-21-2024 Drug scrn 1+ class nonchromo Jesus R Herbert DO Work Phone: Start: 05-21-2024 FREE CELL DNA (NON-[facility]) Not In System Ref Prov Start: 05-21-2024 HIV 1&2 AB/AG SCREEN (P24 AG) Jesus R Herbert DO Work Phone: Start: 05-21-2024 Iaad ia hepatitis b surface antigen Jesus R Herbert DO Work Phone: Start: 05-21-2024 Syphilis test non-treponemal antibody qual Not In System Ref Prov Start: 05-21-2024 TYPE AND SCREEN Jesus R Herbert DO Work Phone: Start: 05-21-2024 ALL CBC WITH AUTO DIFF Jesus Herbert DO Work Phone: Start: 05-03-2024 Urnls dip stick/tabl et rgnt non-auto w/o micrscp Jesus Herbert DO Work Phone: Start: 04-17-2024 TBH [...] ion [Identifier] in Cervix by Cyto stain Jesus Herbert DO Work Phone: Start: 08-07-2022 Piperacillin/tazobactam Urban Max Other H/O: section History of delivery affecting Jono Mendenhall MD Work Phone: H/O: section History of 3 sections Natividad Man MD Work Phone: Plan of Treatment Date Care Activity Detail Author Start: 12-16-2030 DTaP,Tdap and Td Vac cines (7 - Tdap) DTaP,Tdap and Td Vaccines (7 - Tdap) [facility] Start: 01-04-2028 Screening for malign ant neoplasm of cervix HPV/Cotest [facility] Start: 01-03-2026 Screening for malign ant neoplasm of cervix [facility] Start: 08-30-2025 Adult BMI Screening Adult BMI Screen ing [facility] Start: 08-30-2025 Depression Screening Depression Scre ening [facility] Start: 08-30-2025 Tobacco Screening Tobacco Screening [facility] Start: 08-20-2025 Tobacco Screening Tobacco Screening [facility] Start: 08-17-2025 Adult BMI Screening Adult BMI Screen ing [facility] Start: 08-17-2025 Depression Screening Depression Scre ening [facility] Start: 08-17-2025 Tobacco Screening Tobacco Screening [facility] Start: 08-12-2025 Adult BMI Screening Adult BMI Screen ing [facility] Start: 07-13-2025 End: 07-13-2025 US MFM with or without consult US MFM with or without consult Imaging Routine Placental problem affecting fourth Expected: 07/13/2025 (Approximate), Expires: 07/13/2025 [employer] Work Phone: Comment on above: Expected: 07/13/2025 (Approximate), Expires: 07/13/2025 Start: 07-12-2025 Adult BMI Screening Adult BMI Screen ing [facility] Start: 07-12-2025 Tobacco Screening Tobacco Screening [facility] Start: 01-24-2025 Influenza vaccination Influenza Vacc ine [facility] Start: 10-19-2024 End: 10-19-2024 Admission to same day surgery center 10/19/2024 9:00 AM EDT - 10/19/2024 1:30 PM EDT Surgery [facility] [address] [place] [phone] Minal Perez, [address] [facility] [address] [address] [place] [place] [address] HYSTERECTOMY [11794 (CPT )] [facility] - Surgery Comment on above: HYSTERECTO MY [42953 (CPT )] Start: 10-19-2024 End: 10-19-2024 delivery only HYSTERECTOMY PLACENTA ACCRETA 10/19/2024 9:00 AM EDT [place] Start: 10-19-2024 Subsequent hospital visit by physician 10/19/2024 9:00 AM EDT Hospital Encounter [facility] - Surgery [address] [place] [phone] Minal Perez, [address] [place] [place] [address] [facility] - Surgery Start: 09-17-2024 End: 09-17-2024 Patient encounter procedure 09/17/2024 11:30 AM EDT Office Visit Maternal- Medicine at [facility] [address] [place] [phone] Jono Mendenhall MD [address] [facility] 1[address] Floor [place], [place] [phone] Maternal- Medicine at [facility] Start: 09-17-2024 End: 09-17-2024 Patient encounter procedure [facility] Start: 09-10-2024 End: 11-17-2024 US MFM with or without consult US MFM with or without consult Imaging Routine Placenta accreta affecting delivery Expected: 09/10/2024, Expires: 11/17/2024 [facility] Work Phone: Comment on above: Expected: 09/10/2024 , Expires: 11/17/2024 Start: 09-07-2024 End: 09-07-2024 Telemedicine consultation with patient 09/07/2024 10:00 AM EDT Telemedicine [facility] [address] [place] [address] eRné Ascencio, SHINGLE SAWYER-RN NEW GRADUATE [address] [place] [address] [facility] Start: 09-06-2024 End: 09-06-2024 Patient encounter procedure 09/06/2024 3:30 PM EDT Routine [facility] [address] [address] Jesus Godinez, DO [address] [place] [address] [facility] Start: 08-30-2024 End: 08-30-2024 Patient encounter procedure 08/30/2024 2:15 PM EDT Routine [facility] [address] [facility] [place] [phone] Natividad Man MD [address] [facility] [place] [phone] [facility] Start: 08-25-2024 End: 08-25-2024 Patient encounter procedure 08/25/2024 3:00 PM EDT Routine [facility] [address] [place] [phone] Jesus Godinez, DO [address] [place] [address] [facility] Start: 08-23-2024 End: 08-23-2024 Patient encounter procedure 08/23/2024 3:40 PM EDT Routine [facility] [address] [place] [phone] Jesus Godinez, DO [address] [place] [address] Arrived [facility] Comment on above: Arrived Start: 08-20-2024 End: 11-20-2024 US MFM with or without consult US MFM with or without consult Imaging Routine Placenta previa antepartum in second trimester Placenta accreta affecting delivery Subchorionic hematoma, antepartum, single or unspecified fetus Expected: 08/20/2024, Expires: 11/20/2024 [facility] Comment on above: Expected: 08/20/2024 , Expires: 11/20/2024 Start: 08-17-2024 End: 08-17-2024 ambulatory 08/17/2024 3:00 PM EDT Initial [facility] [address] [place] [phone] Carola Brown MD [facility], [address] [place] [phone] [facility] Start: 08-17-2024 End: 11-17-2024 US MFM with or without consult US MFM with or without consult Imaging Routine Placenta accreta affecting delivery Expected: 08/17/2024, Expires: 11/17/2024 [facility] Comment on above: Expected: 08/17/2024 , Expires: 11/17/2024 Start: 08-12-2024 End: 08-12-2024 Patient encounter procedure Maternal- Medicine at [facility] Start: 08-12-2024 End: 08-12-2024 Patient encounter procedure 08/12/2024 8:30 AM EDT Appointment [facility] - [facility] US Imaging [address] [facility] [place] [phone] [facility] - [facility] US Imaging Start: 07-26-2024 End: 07-26-2024 Patient encounter procedure [facility] Comment on above: Arrived Start: 07-26-2024 End: 07-26-2025 CBC panel - Blood by Automated count CBC Lab Routine Diabetes mellitus screening Expected: 07/26/2024 (Approximate), Expires: 07/26/2025 [facility] Work Phone: Comment on above: Expected: 07/26/2024 (Approximate), Expires: 07/26/2025 Start: 07-26-2024 End: 07-26-2025 Measurement of glucose 1 hour after glucose challenge for glucose tolerance test Glucose tolerance, 1 hour Lab Routine Diabetes mellitus screening Expected: 07/26/2024 (Approximate), Expires: 07/26/2025 [facility] Comment on above: Expected: 07/26/2024 (Approximate), Expires: 07/26/2025 Start: 07-12-2024 End: 07-12-2024 Patient encounter procedure [facility] - [facility] US Imaging Start: 07-09-2024 End: 06-08-2025 US [facility] with or without consult US [facility] with or without consult Imaging Routine Encounter for anatomic survey Expected: 07/09/2024 (Approximate), Expires: 06/08/2025 [facility] Work Phone: Comment on above: Expected: 07/09/2024 (Approximate), Expires: 06/08/2025 Start: 06-28-2024 End: 06-28-2024 Patient encounter procedure [facility] Comment on above: Arrived Start: 06-28-2024 End: 07-26-2024 Alpha fetoprotein, maternal Alpha fetoprotein, maternal Lab Routine 18 weeks gestation of Second trimester Expected: 06/28/2024 (Approximate), Expires: 07/26/2024 [facility] Work Phone: Comment on above: Expected: 06/28/2024 (Approximate), Expires: 07/26/2024 Start: 06-28-2024 End: 06-28-2025 US for US OB 14+ weeks anatomy scan Imaging Routine Screening, , for anatomic survey Expected: 06/28/2024, Expires: 06/28/2025 [facility] Comment on above: Expected: 06/28/2024 , Expires: 06/28/2025 Start: 06-22-2024 End: 06-22-2024 Professional / ancillary services management 06/22/2024 1:00 PM EST Ancillary Procedure [facility] [address] [address] [facility] Start: 05-31-2024 End: 05-31-2025 [...] AM EST Initial [facility] [address] [phone] [facility] Start: 05-07-2024 End: 05-07-2024 Professional / ancillary services management 05/07/2024 10:00 AM EST Ancillary Procedure [facility] [address] [phone] [facility] Start: 05-03-2024 End: 05-03-2025 ABO/Rh ABO/Rh Lab Routine Missed menses , unspecified gestational age Expected: 05/03/2024 (Approximate), Expires: 05/03/2025 [facility] Comment on above: Expected: 05/03/2024 (Approximate), Expires: 05/03/2025 Start: 05-03-2024 End: 05-03-2025 Blood type and Indirect antibody screen panel - Blood Type and screen Lab Routine Missed menses , unspecified gestational age Expected: 05/03/2024 (Approximate), Expires: 05/03/2025 [facility] Work Phone: Comment on above: Expected: [...] AM EST Initial [facility] [address] [address] [facility] Start: 05-03-2024 End: 05-03-2024 Professional / ancillary services management 05/03/2024 10:30 AM EST Ancillary Procedure [facility] [address] [address] [facility] Start: 01-25-2024 COVID-19 Vaccine () COVID-19 Vaccine () [facility] Start: 01-25-2024 Influenza vaccination [facility] Start: 09-18-2023 [facility] Start: 01-24-2023 Influenza vaccination Influenza Vacc ine (#1) [facility] Start: 2015 Screening for malign ant neoplasm of cervix Pap Smear [facility] Start: 2013 DTaP,Tdap and Td Vac cines (1 - Tdap) DTaP,Tdap and Td Vaccines (1 - Tdap) [facility] Start: 02-27-2012 Adult BMI Follow Up Plan Adult BMI Follow Up Plan [facility] Start: 02-27-2012 Adult BMI Screening Adult BMI Screen ing [facility] Start: 2006 Depression Screening Depression Scre ening [facility] Start: 2006 Tobacco Screening Tobacco Screening [facility] Bacteria identified in Urine by Culture Urine culture Microbiology Routine Missed menses Ordered: 05/03/2024 [facility] Comment on above: Ordered: 05/03/2024 CBC W Auto Different ial panel - Blood CBC and differential Lab Routine Missed menses , unspecified gestational age Ordered: 05/03/2024 [facility] Comment on above: Ordered: 05/03/2024 End: 09-07-2025 CBC W Auto Differential panel - Blood CBC auto differential Lab Routine Anemia affecting in second trimester Iron deficiency anemia secondary to inadequate dietary iron intake 4 weeks for 3 Occurrences starting 09/07/2024 until 09/07/2025 [facility] Work Phone: Comment on above: 4 weeks for 3 Occurr ences starting 09/07/2024 until 09/07/2025 End: 08-17-2025 Chlamydia/Gonorrhoeae by PCR, Urine Chlamydia/Gonorrhoeae by PCR, Urine Microbiology Routine care, antepartum 1 Occurrences starting 08/17/2024 until 08/17/2025 [facility] Work Phone: Comment on above: 1 Occurrences starti ng 08/17/2024 until 08/17/2025 Chlamydia/Gonorrhoea e by PCR, Urine Chlamydia/Gonorrhoeae by PCR, Urine Microbiology Routine care, antepartum 08/17/2024 6:31 PM EDT [facility] End: 08-29-2025 Cyanocobalamin vitamin b-12 Vitamin B12 Lab Routine Anemia affecting in second trimester 1 Occurrences starting 08/30/2024 until 08/29/2025 [employer] Work Phone: Comment on above: 1 Occurrences starti ng 08/30/2024 until 08/29/2025 End: 08-17-2025 Ferritin [Mass/volume] in Serum or Plasma Ferritin Lab Routine care, antepartum 1 Occurrences starting 08/17/2024 until 08/17/2025 [facility] Comment on above: 1 Occurrences starti ng 08/17/2024 until 08/17/2025 End: 09-07-2025 Ferritin [Mass/volume] in Serum or Plasma Ferritin Lab Routine Anemia affecting in second trimester Iron deficiency anemia secondary to inadequate dietary iron intake 4 weeks for 3 Occurrences starting 09/07/2024 until 09/07/2025 [facility] Comment on above: 4 weeks for 3 Occurr ences starting 09/07/2024 until 09/07/2025 End: 11-20-2024 nonstress test - Maternal Medicine nonstress test - Maternal Medicine OB Routine Placenta previa antepartum in second trimester Placenta accreta affecting delivery Subchorionic hematoma, antepartum, single or unspecified fetus Per Treatment Plan for 9 Occurrences starting 08/20/2024 until 11/20/2024 [employer] Work Phone: Comment on above: Per Treatment Plan f or 9 Occurrences starting 08/20/2024 until 11/20/2024 End: 08-29-2025 Folate Folate Lab Routine Anemia affecting in second trimester 1 Occurrences starting 08/30/2024 until 08/29/2025 [facility] Comment on above: 1 Occurrences starti ng 08/30/2024 until 08/29/2025 End: 08-17-2025 Glucose 1h post 50g load Glucose 1h post 50g load Lab Routine care, antepartum 1 Occurrences starting 08/17/2024 until 08/17/2025 [facility] Comment on above: 1 Occurrences starti ng 08/17/2024 until 08/17/2025 Hemoglobin A1c/Hemoglobin.total in Blood Hemoglobin A1c Lab Routine Missed menses , unspecified gestational age Ordered: 05/03/2024 [facility] Comment on above: Ordered: 05/03/2024 Hepatitis B virus walden rface Ag [Presence] in Serum or Plasma by Immunoassay Hepatitis B surface antigen Lab Routine Missed menses , unspecified gestational age Ordered: 05/03/2024 [facility] Comment on above: Ordered: 05/03/2024 Hepatitis C virus Ab [Presence] in Serum or Plasma by Immunoassay Hepatitis C antibody Lab Routine Missed menses , unspecified gestational age Ordered: 05/03/2024 [facility] Comment on above: Ordered: 05/03/2024 End: 08-17-2025 HIV 1&2 AB/AG Screen (P24 AG) HIV 1&2 AB/AG Screen (P24 AG) Lab Routine care, antepartum 1 Occurrences starting 08/17/2024 until 08/17/2025 [facility] Comment on above: 1 Occurrences starti ng 08/17/2024 until 08/17/2025 HIV-1/HIV-2 antigen/antibody combination immunoassay HIV-1 and HIV-2 antibodies Lab Routine Missed menses , unspecified gestational age Ordered: 05/03/2024 [facility] Comment on above: Ordered: 05/03/2024 End: 08-31-2025 Iron and TIBC Iron and TIBC Lab STAT Iron deficiency anemia, unspecified iron deficiency anemia type 1 Occurrences starting 08/31/2024 until 08/31/2025 [employer] Work Phone: Comment on above: 1 Occurrences starti ng 08/31/2024 until 08/31/2025 End: 09-07-2025 Iron and TIBC Iron and TIBC Lab Routine Anemia affecting in second trimester Iron deficiency anemia secondary to inadequate dietary iron intake 4 weeks for 3 Occurrences starting 09/07/2024 until 09/07/2025 [facility] Comment on above: 4 weeks for 3 Occurr ences starting 09/07/2024 until 09/07/2025 Reagin Ab [Presence] in Serum by RPR RPR Lab Routine Missed menses , unspecified gestational age Ordered: 05/03/2024 [facility] Comment on above: Ordered: 05/03/2024 Rubella antibody, IgG Rubella an tibody, IgG Lab Routine Missed menses , unspecified gestational age Ordered: 05/03/2024 [facility] Comment on above: Ordered: 05/03/2024 End: 08-17-2025 Syphilis Total(Unknown Syphilis Status) Syphilis Total(Unknown Syphilis Status) Lab Routine care, antepartum 1 Occurrences starting 08/17/2024 until 08/17/2025 [facility] Comment on above: 1 Occurrences starti ng 08/17/2024 until 08/17/2025 Immunizations Immunization Date Immunization Notes Care Provider Fa [facility] 08-18-2024 RHO(D) immune globulin- IV or IM Bessie Beckford MD Work Phone: [facility] 09-18-2023 influenza virus vaccine, unspecified formulation Arpita GARDNER Work Phone: [facility] 03-20-2021 COVID-19 mRNA-1273 (Moderna) DO Urban Max Work Phone: [facility] 02-27-2021 influenza, seasonal, injectable [employer] Other [facility] 06-20-2020 COVID-19 mRNA-1273 (Moderna) DO Urban Max Work Phone: [facility] 05-23-2020 COVID-19 mRNA-1273 (Moderna) DO Urban Max Work Phone: [facility] 02-29-2020 influenza, injectable, quadrivalent, contains preservative [employer] Other [facility] 02-29-2020 influenza, injectable, quadrivalent, preservative free DO Urban Max Work Phone: [facility] 02-29-2020 influenza virus vaccine, unspecified formulation Arpita GARDNER Work Phone: [facility] 02-07-2020 influenza, injectable, quadrivalent, contains preservative Patient Objection Urban Max Other [facility] Other NEGATED: Highlighted row has not occurred!02-07-2020 influenza, injectable, quadrivalent, contains preservative Patient Objection Georgie Nighat Other [employer] [facility] Other Payers Date Payer Category Payer Medicaid HMO [id number] 2023 Self-pay [id number] 2023 Medicaid [id number] 2023 Private Health Insurance [facility] MEDICAID [id number] 2023 Unknown [id number] [address] HE[employer] DES[employer] PLUS [id number] 2022-Present [address] [place] [address] [id number] 1994 Unknown [id number] 2.16.840.1.050080.3.579.2. 593 1994 Unknown [id number] 2.16.840.1.771520.3.579.2. 1279 1994 Unknown [id number] 2.16.840.1.271112.3.579.2. 1259 1994 Unknown [id number] 2.16.840.1.757955.3.579.2. 1259 1994 Unknown [id number] 2.16.840.1.981801.3.579.2. 1259 1994 Unknown [id number] 2.16.840.1.309491.3.579.2. 1259 1994 Unknown [id number] 2.16.840.1.873332.3.579.2. 1259 1994 Unknown [id number] 2.16.840.1.376153.3.579.2. 1259 1994 Unknown [id number] 2.16.840.1.309591.3.579.2. 1259 1994 Unknown [id number] 2.16.840.1.010612.3.579.2. 1259 1994 Unknown [id number] 2.16.840.1.064930.3.579.2. 1259 1994 Unknown [id number] 2.16.840.1.750902.3.579.2. 1286 1994 Unknown [id number] 2.16.840.1.607059.3.579.2. 1286 1994 Unknown [id number] 2.16.840.1.435273.3.579.2. 1286 1994 Unknown [id number] 2.16.840.1.094979.3.579.2. 1286 1994 Unknown [id number] 2.16.840.1.347844.3.579.2. 1286 1994 Unknown [id number] 2.16.840.1.217441.3.579.2. 1286 1994 Unknown [id number] 2.16.840.1.429325.3.579.2. 1286 1994 Unknown [id number] 2.16.840.1.605880.3.579.2. 1286 1994 Unknown [id number] 2.16.840.1.675245.3.579.2. 1286 1994 Unknown [id number] 2.16.840.1.254995.3.579.2. 1286 1959 Unknown [id number] Unknown [id number] 2.16.840.1.426003.3.579.2. 531 Unknown [id number] 2.16.840.1.434983.3.579.2. 531 Social History Date Type Detail Facility Unknown if ever smoked [facility] Other Start: 12-03-2022 End: 08-30-2024 Sex Assigned At [employer] Other Start: 12-01-2022 End: 06-10-2024 Tobacco smoking status ORIS Never smoked tobacco [facility] Start: 07-08-2023 End: 05-31-2024 Alcohol intake Current drinker of alcohol (finding) [facility] Start: 12-03-2022 End: 08-30-2024 History of Social function [facility] Start: 12-01-2022 Alcohol Comment occasional [facility] Start: 11-22-2022 [facility] Start: 1995 Sex Assigned At Not on file [facility] Start: 1995 Sex Assigned At Female F [facility] Tobacco smoking status NHIS Tobacco smoking consumption unknown [facility] Start: 06-04-2024 Sex Female (finding) [facility] Start: 06-10-2024 End: 08-30-2024 Alcoholic beverage intake Ex-drinker (finding) [facility] Within the past 12 months we worried whether our food would run out before we got money to buy more. Never True [facility] The thought of harming myself has occurred to me Never [facility] Clinical Notes 03-05-2021 to 09-07-2024 René Ascencio, GLORIA-RN NEW GRADUATE - 09/07/2024 10:00 AM EDTPatient InstructionsAttachmentsTelephone Encounter - [facility] - 09/03/2024 9:52 AM EDTTelephone Encounter - [facility] - 09/03/2024 9:52 AM EDT Note Date & Type Note Facility 09-07-2024 History of Presen t illness Narrative Benign Hematology/ Patient Blood Management Consultation: Dr. 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 female Requested by: Nadia Weir MD PCP: No primary care provider on file. : 1995 REASON FOR CONSULTATION: Anemia in CHIEF COMPLAINT: Low iron HISTORY OF PRESENT ILLNESS: Griselda Quintana is a 29 y.o. female with history of who presents with iron deficiency anemia in . Patient has been taking oral iron for weeks. She has never needed IV iron in the past. She denies any issues with shortness of breath. States she has some headaches but feels like it is related. Currently no craving for ice but feels like she does have some issues when her iron levels are low. Positive for restless legs but states she has this every . Denies any issues with nose bleeds. She has been having issues with spotting her whole . PAST HEMATOLOGY / VASCULAR HISTORY: REVIEW OF SYSTEMS: Complete 10-point ROS is negative except as mentioned in HPI. 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 Social History Socioeconomic History Marital status: Single Spouse name: Not on file Number of children: Not on file Years of education: Not on file Highest education level: Not on file Occupational History Not on file Tobacco Use Smoking status: Never Smokeless tobacco: Not on file Vaping Use Vaping status: Never Used Substance and Sexual Activity Alcohol use: Not Currently Drug use: Never Sexual activity: Not Currently Partners: Male control/protection: None Other Topics Concern Not on file Social History Narrative Not on file Social Drivers of Health Financial Resource Strain: Low Risk (08/17/2024) Overall Financial Resource Strain (CARDIA) Difficulty of Paying Living Expenses: Not hard at all Food Insecurity: No Food Insecurity (08/30/2024) Hunger Screening Food Insecurity - Worry: Never True Food Insecurity - Inability: Never True Transportation Needs: Not on file Physical Activity: Not on file Stress: Not on file Social Connections: Not on file Interpersonal Safety: Not At Risk (08/17/2024) Humiliation, Afraid, Rape, and Kick questionnaire Fear of Current or Ex-Partner: No Emotionally Abused: No Physically Abused: No Sexually Abused: No Housing Instability: Low Risk (08/30/2024) Housing Instability Housing Instability: No MEDICATIONS: Current Outpatient Medications on File Prior to Visit Medication Sig Dispense Refill ferrous sulfate 325 (65 FE) mg EC tablet Take 1 tablet (325 mg total) by mouth daily with breakfast. magnesium oxide (MAGOX) 400 mg tablet Take 1 tablet (400 mg total) by mouth in the morning. vit,[id number] (PRENATABS FA) 29-1 mg tablet Take 1 tablet by mouth in the morning. No current facility-administered medications on file prior to visit. ALLERGIES: No Known Allergies PHYSICAL EXAMINATION: Vital signs: LMP 02/20/2024 General appearance: awake, alert, oriented, no acute distress HEENT: supple LABORATORY DATA: Lab Results Component Value Date WBC 9.7 08/18/2024 WBC 9.9 08/17/2024 HGB 11.3 (L) 08/18/2024 HGB 11.0 (L) 08/17/2024 HGB 12.5 05/21/2024 HCT 34.5 (L) 08/18/2024 HCT 32.5 (L) 08/17/2024 HCT 37.3 05/21/2024 MCV 82 08/18/2024 MCV 81 08/17/2024 PLT 269 08/18/2024 PLT 247 08/17/2024 PLT 233 05/21/2024 Lab Results Component Value Date GLU 94 08/18/2024 No results found for: ALT , AST , GGT , ALKPHOS , LABBILI Lab Results Component Value Date INR 0.9 08/17/2024 PROTIME 9.9 08/17/2024 Lab Results Component Value Date FERRITIN 26 08/17/2024 No results found for: TSH No components found for: HGBELECTROPHORESIS ASSESSMENT/RECOMMENDATIONS: 1. Iron Deficiency Anemia during : - oral iron- taking for weeks - with iron-taking -issues with bleeding- placenta accreta - Currently in the 3rd trimester. Her due date is 10/19/[id number]. She was referred here by her OBGYN team. She is anticipating a baby boy. - Currently, she describes some symptoms of iron deficiency including fatigue, falling asleep easily, Pica for ice, restless legs, and foggy thinking. We discussed her history in detail today. We discussed that she appears to be iron deficient. We discussed that iron deficiency is frequently encountered during . Iron deficiency anemia during has been associated with an increased risk of adverse outcomes including low weight, delivery,and mortality. In addition, there may be an association between maternal iron deficiency anemia and depression. Children born to iron deficient mothers demonstrate lower cognitive function as well as memory and motor deficits. The iron requirements during are more than patients can take in orally. Therefore, patient's often have to draw from her iron stores during . Some patients have low or depleted iron stores prior to short interval between pregnancies or heavy menstrual cycles. She meets the diagnosis of anemia in with hemoglobin of 11. Her ferritin is less than 30, she needs a diagnosis of iron deficiency anemia in . As she is in the 3rd trimester, I would typically recommend intravenous iron. I discussed this with her in detail today. The goals of this therapy would be to help her feel better, prevent blood transfusions during delivery, and potentially have impact on iron and development. We discussed the different formulations of IV iron. Most common adverse reactions are nausea, vomiting, chest pain, backache, hypersensitivity, dyspnea, hypotension, pruritus, flushing, and dizziness.Severe adverse reactions including circulatory failure (severe hypotension, shock including in the context of anaphylactic reaction)which may have serious consequences on the fetus such as bradycardia. RECOMMENDATIONS: - Discussed diagnosis of iron deficiency anemia during . - We discussed proceeding with IV iron as she is in the 3rd trimester. The goals of this therapy would be to help her feel better, prevent blood transfusions during delivery, and potentially have impact on iron and development. She was in agreement to proceed. - Will place order for venofer 200 mg x 5 at [facility] - continue vitamin daily -continue oral iron -check labs on 10/07 before on 10/19- if ferritin is <30 would recommend more iv iron while in for delivery - recheck labs 6-8 weeks post delivery to monitor for iron deficiency -Delivery at [facility] - Video Visit via Real-time Synchronous Audiovisual Provider Location: [facility] [address] [place] [address] Patient Location: Patient's home Video Visit Consent Statement: I discussed risks, benefits, and alternatives of a real-time synchronous audiovisual consultation with the patient (and any accompanying persons) including the risks that the patient's personal health details and medical records will be discussed over real-time, synchronous, interactive video/audio/telecommunication technology, the visit will not be recorded without the express consent of both the provider and the patient, and that there are some limitations compared to [id number] evaluations. The patient consented to the presence of additional virtual and/or in-person participants. We elected to proceed. René Ascencio NP Benign Hematology/ Patient Blood Management/Bloodless Medicine Office [phone] PRASANNA Patton 09/07/24 1021 documented in this encounter [facility] 09-07-2024 Instructions PRASANNA Patton - 09/07/2024 10:00 AM EDT Images from the original note were not included. The following attachments cannot be sent through Care Everywhere.Iron Sucrose? ADULT ([place])documented in this encounter [facility] 09-03-2024 Miscellaneous Notes Spoke with pt to confirm appt with rené on 09/07 at 10 am via my chart video documented in this encounter [facility] 09-03-2024 Telephone encounter Note Spoke with pt to confirm appt with rené on 09/07 at 10 am via my chart video [facility] 09-02-2024 Miscellaneous Notes Received call from LOW Banegas at [facility] seeking clearance from Dr. Mccain for patient to have testing locally [place] per Dr. Mccain. Returned call to [facility] to regarding recommendations. documented in this encounter [facility] 09-02-2024 Telephone encounter Note Received call from LOW Banegas at [facility] seeking clearance from Dr. Mccain for patient to have testing locally [place] [place] per Dr. Mccain. Returned call to [facility] to regarding recommendations. [facility] 08-31-2024 History of Presen t illness Narrative Lab orders placed for up coming appointment. documented in this encounter [facility] 08-31-2024 Miscellaneous Notes Called pt to schedule referral appt with rené on 09/07 at 10 am via my chart video, labs done except iron tibc documented in this encounter [facility] 08-31-2024 Telephone encounter Note Called pt to schedule referral appt with rené on 09/07 at 10 am via my chart video, labs done except iron tibc [facility] 08-30-2024 History of Presen t illness Narrative [facility] High Risk Obstetrics Visit Return OB CC: Scheduled OB Visit None Problem List Genitourinary Placenta accreta, second trimester Overview 07/26/24 [facility] Myometrial thinning with focal outpouching/bulging along the lower left placenta towards the left posterior urinary bladder dome (series 3 images 11-12, series 6 image 11-12) and left lateral aspect of the lower uterine segment. There are several areas of scattered T2 hypointense parenchymal bands throughout the placenta. There is no evidence of extension through the myometrium. * scarring along the low anterior uterus. For delivery at 34 weeks with predelivery ANCS 08/17/24 Hb 11 with ferritin 26 Relevant Orders [facility] Benign Hematology/Blood Management Other Placenta previa antepartum in second trimester History of 3 sections care - Primary Overview Dating: LMP Delivery timin weeks via Hysterectomy testing: - labs: Reviewed - Rh + - early 1hr GCT: - ASA: - cfDNA: low risk - carrier screening: - MSAFP: Not completed - anatomy scan: Completed 07/12/2024 - 28w labs: Completed - PP contraception: C-Hyst vs tubal sterilization Vaccinations: - tdap: Declined 08/30/2024 - flu - COVID Medicaid consent signed 08/17 for hysterectomy and tubal sterilization Anxiety and depression Reports good FM. Denies Bleeding, SROM, contractions Denies persistent N/V, constipation, heartburn, hematuria, dysuria Control Method plan: C-Hyst vs tubal sterilization Problem List reviewed and updated PMH/PSH/FH/Soc/Meds/Allergies Reviewed PE BP 106/78 Wt 125.1 kg (275 lb 14.4 oz) LMP 02/20/2024 BMI 40.74 kg/m Alert, NAD ABdomen: Soft, NT, nondistended FHTs 140s Wt Readings from Last 3 Encounters: 08/30/24 125.1 kg (275 lb 14.4 oz) 08/17/24 123 kg (271 lb 3.2 oz) 08/17/24 123 kg (271 lb 3.2 oz) See flowsheet Urine dipstick shows Protein trace Glucose negative Leukocyte negative Imp/Plan at 27w3d Patient Active Problem List Diagnosis Placenta previa antepartum in second trimester History of 3 sections Subchorionic hematoma care Anxiety and depression Placenta accreta, second trimester Placenta accreta in the setting of an anterior placenta previa w/ hx of 3 prior CS - Delivery at 34 weeks (10/15/24), will need ANCS prior to delivery - Reports no conractions, bleeding - Hysterectomy form signed 08/30/24 - pelvic rest - ANFS starting at 28 weeks weekly NST at [facility] - C-Hyst @ 34 weeks with cell saver Iron Defiency Anemia - Ferritin 26 - continue oral iron therapy Antepartum care - 3rd trimester labs competed while inpatient Anxiety/Depression - Reports mood is well controlled at this time without medication COVID Vaccine status: Vaccinated Vaccine recommended and education provided. RTC 2 weeks via [facility] Note to patient: The Century Cures Act makes medical notes like these available to patients in the interest of transparency. However, be advised this is a medical document. It is intended as peer to peer communication. It is written in medical language and may contain abbreviations or verbiage that are unfamiliar. It may appear blunt or direct. Medical documents are intended to carry relevant information, facts as evident, and the clinical opinion of the practitioner. Attending Attestation: I saw the patient. I participated and was physically present during the critical/graham portions of the service. I was directly involved in the management and treatment plan of the patient. I reviewed the resident's note. Additional Notes/Findings: Return OB Good FM. Denies Bleeding, SROM, contractions S/p admission 08/17/24-08/20/24 for vaginal bleeding in context of placenta accreta. Today reports no bleeding Plans to do testing at Dr. Godinez's office Is compliant with PNV and oral iron Control Method plan: C-Hyst Problem List reviewed and updated PE BP 106/78 Wt 125.1 kg (275 lb 14.4 oz) LMP 02/20/2024 BMI 40.74 kg/m Alert, NAD See flowsheet Imp/Plan at 27w2d Patient Active Problem List Diagnosis Placenta previa antepartum in second trimester History of 3 sections Subchorionic hematoma care Anxiety and depression Placenta accreta, second trimester care, ante labor warnings/ Movement discussed Previous X 3 with placenta accreta by MRI (left posterolateral aspect of uterus with anterior fundal subchorionic hemorrhage (9 cm on 07/26/24) For delivery (C-hyst)at 34 weeks 10/15/24 Cell saver discussed and will post for cell saver ANCS (normal 28 week one hr gct) Weekly testing -- plans to do at [place] Serial growth scans scheduled for 09/17/24 Sign hysterectomy form --previously completed. Desires sterilization. Pelvic rest Hb 11 on 08/17/24 in patient with accreta Ferritin 08/17/24 26 B12, folate Blood management referral placed Anxiety/depression Stable and doing well RTC 2 weeks via [facility] Note to patient: The Century Cures Act makes medical notes like these available to patients in the interest of transparency. However, be advised this is a medical document. It is intended as peer to peer communication. It is written in medical language and may contain abbreviations or verbiage that are unfamiliar. It may appear blunt or direct. Medical documents are intended to carry relevant information, facts as evident, and the clinical opinion of the practitioner. Pt here for routine HROB 27w3d Denies lof vb ctx Confirms+fm Declines TDAP 28wk folder given to pt EPDS completed IMS completed Pt would like to discuss sterilization No concerns today Urine dip-Non hemolyzed blood-moderate, Bilirubin-small, documented in this encounter [facility] [place] [facility]UK[facility] Undergarments 08-23-2024 History of Presen t illness Narrative Reason for Appointment: Patient ID: Griselda Quintana is a 29 y.o. female who presents for Routine Visit Patient presents today for Return OB appointment. MEDICATIONS Current Outpatient Medications Medication Instructions azithromycin (Zithromax Z-Ry) 250 MG tablet As directed ferrous sulfate (FE TABS) 325 mg, Oral, Daily with breakfast, Do not crush, chew, or split. 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 HENT: Negative. Eyes: Negative. Respiratory: Negative. Cardiovascular: Negative. Gastrointestinal: Negative. Genitourinary: Negative. Musculoskeletal: Negative. Skin: Negative. Neurological: Negative. All other systems reviewed and are negative. Hematological: Negative. Endocrine: Negative. Allergic/Immunologic: Negative. OBJECTIVE Objective: Physical Exam Constitutional: Appearance: Normal [...] nursing note reviewed. Exam conducted with a injection mold technician present. Vitals: Estimated body mass index is 38.36 kg/m as calculated from the following: Height as of 11/18/22: 5' 8.5 . Weight as of 06/28/24: 256 lb. BP: Patient's last menstrual period was 02/20/2024. ASSESSMENT & PLAN ICD-10-CM 1. Second trimester Z34.92 POCT urinalysis dipstick manually resulted 2. 26 weeks gestation of Z3A.26 ferrous sulfate (Fe Tabs) 325 (65 Fe) MG EC tablet Return OB: Patient presents today for a routine obstetrics appointment. Patient is currently 26w3d . Patient states she is doing well but has complaints of being tired due to current . Patient has verbalizes frequent movement. labor precautions was discussed/given and patient was instructed to perform kick counts three times a day. Patient has continued to see MFM related to focal accreta placenta and has begun taking Ferrous Sulfate. She will begin NST's at 26 weeks at [facility]. She has been given precautions including bleeding and decreased movement. Orders Placed This Encounter Procedures POCT urinalysis dipstick manually resulted Follow Up: Patient is to return to office in 4 week for routine OB appointment. Documented by Madiha Valdez NP on behalf of: Jesus Godinez DO documented in this encounter [facility] 08-17-2024 History of Presen t illness Narrative [place] [facility] Initial High Risk Obstetrics Visit Initial HROB Visit Griselda Quintana is a 29 y.o. female at 25w4d (Estimated Date of Delivery: 11/26/24) who presents for initial HROB visit. Dated by: 9w6d US consistent with LMP Is transferring from Dr. Godinez d/t placenta accreta spectrum Records have been received/reviewed Problem List Placenta previa antepartum in second trimester - Primary Placenta accreta affecting delivery History of 3 sections Subchorionic hematoma Current Outpatient Medications on File Prior to Visit Medication Sig Dispense Refill ferrous sulfate 325 (65 FE) mg EC tablet Take 1 tablet (325 mg total) by mouth daily with breakfast. magnesium oxide (MAGOX) 400 mg tablet Take 1 tablet (400 mg total) by mouth in the morning. vit,[id number]-hrajb (PRENATABS FA) 29-1 mg tablet Take 1 tablet by mouth in the morning. azithromycin (ZITHROMAX) 250 mg tablet Take 1 tablet (250 mg total) by mouth in the morning. DIRECTED.. (Patient not taking: Reported on 08/12/2024) promethazine (PHENERGAN) 12.5 mg tablet Take 1 tablet (12.5 mg total) by mouth every 6 (six) hours as needed for nausea or vomiting. (Patient not taking: Reported on 08/12/2024) No current facility-administered medications on file prior to visit. Today: Reports good FM. Denies SROM, persistent contractions. Pt reports vaginal spotting 3-4x a week filling about a half dollar amount twice a day. She reports it is dark red. She denies lightheadedness, dizziness. 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 Vitreous floaters of both eyes History of Thrombotic event no History of Asthma no History of HSV, genital no Diabetes no Hypertension no Past Surgical History: Procedure Laterality Date SECTION X 3 08/2009, 2017, 08/04/2023 TONSILLECTOMY 05/12/2012 Family History Problem Relation Age of Onset Hypertension Maternal Grandmother Hyperlipidemia Maternal Grandmother Cancer Maternal Grandfather Hyperlipidemia Paternal Grandmother Heart disease Paternal Grandmother Cancer Paternal Grandfather OB History Para Term AB Living 4 3 3 0 0 3 SAB IAB Ectopic Multiple Live Births 0 0 0 0 3 # Outcome Date GA Lbr Yandel/2nd Weight Sex Type Anes PTL Lv 4 Current 3 Term 08/04/23 38w2d M CS-LTranv ONI 2 Term 07/31/16 39w0d 3.685 kg M CS-LTranv ONI 1 Term 09/20/09 40w0d 3.572 kg F CS-LTranv ONI Willing to receive blood products, if indicated yes Pets in household dog Genetic History--see Flow Sheet Congenital anomaly no Cardiac defect no Chromosomal abnormality no Thrombotic event (1st degree relative) no Social History Lives with kaycee Samuel, children FOB is involved. Employed: [employer] 3hrs/week Education level: some college Safe in relationship: yes Access to food: yes Review of Systems - General: Fever/ Chills no HEENT Rhinorrhea no Sore Throat no CV Chest Pain no Palpitations no Pulm: Shortness of Breath no Persistent cough no Wheezing no GI Nausea no Vomiting no Heartburn yes Diarrhea no Constipation no Extr: Edema no Dysuria no Hematuria no Mood: stable PE VS: BP 108/68 Wt 123 kg (271 lb 3.2 oz) LMP 02/20/2024 BMI 41.25 kg/m General Alert, NAD HEENT: Normocephalic Dentition: appropriate Neck: Supple without thyromegaly Lungs: CTA &P Back: Without spinal, paraspinal or CVAT COR: RRR without m/g/r Abdomen: Soft, NT FHTs: 142 Extr: Edema: none Pelvic: External genitalia within normal limits, 1 Q-tip of dark red blood in the vault with small amount of clot. Cervix appears closed. No abnormal cervical discharge Labs: labs have been done (1hr, 1st tri labs) Rh + Last cervical cytology 11/2022 per pt, no access to records. No h/o abnormals Aneuploidy screening: low risk Triple genetic carrier screening: low risk Post delivery contraceptive plan: BS plan: breastfeed Imp/Plan 29 y.o. at 25w4d Vaginal bleeding Sending to OB triage for evaluation, monitoring, and labs. Placenta accreta S/p MFM cx: delivery at 34w via hysterectomy after completion of ANCS S/p MRI at [facility] Plan to repeat cbc and ferritin at 28w Continue pelvic rest Hysterectomy and medicaid tubal consent signed today H/o Cdx3 H/o subchorionic hematoma, about 8cm Care Serial growth US Q4, last 08/12, ordered Influenza vaccine recommended and education provided. Patient declines Instructed to get 1hr GTT. Pt has order. GCCT ordered 3rd trimester labs ordered and given to pt COVID Vaccine status: declines . Recommendations and education provided. Discussed with patient signs/symptoms of influenza and COVID 19 and the need to contact us so that we can evaluate and possibly start medication. Discussed PTL precautions and kick counts RTC weeks HROB Note to patient: The Century Cures Act makes medical notes like these available to patients in the interest of transparency. However, be advised this is a medical document. It is intended as peer to peer communication. It is written in medical language and may contain abbreviations or verbiage that are unfamiliar. It may appear blunt or direct. Medical documents are intended to carry relevant information, facts as evident, and the clinical opinion of the practitioner. Urine [id number]-[id number] Pt seen today for HROB initial @25.[address] Godinez Pt denies LOF, CTX, admits to spotting daily has been ongoing, states wears a pad goes from bright red to darker Pt endorses +FM Provider Statement I was present with the resident during the history and physical exam on this patient and discussed his or her management with the resident. I reviewed the residents's note and agree with the documented findings and plan of care with the following exceptions: None Pt seen and examined/discussed with resident. I reviewed her note and plan of care agreed upon and discussed with the patient. She is 29yo transfer of care at 25w 4d from [place] for placenta previa, placenta accreta spectrum and subchorionic hematoma in the setting of 3 prior c-sections. She is feeling movements. Vaginal bleeding- pt reports daily vaginal bleeding, wears a pad, it is not a lot and is dark in color. She denies pain. Careful spec exam done today with resident- pt had dark blood in the vault wiped with large pipelle and dark blood clot at the os. There was no active bright red bleeding. Since it was occurring daily and that she has a viable now, we sent her to [facility] for evaluation and any updated recommendations. Pt voices understanding and is comfortable with that plan. We discussed potential outcomes. H/o 3 prior sections- plan for C-hyst at 34 wks after ANCS administration Placenta previa, on pelvic rest, monitor bleeding patterns as above Placenta accreta spectrum- see MRI report from [place] for specific info. Potential for bladder to be involved in future. At that time (07/26/24) there was no evidence of extension through the myometrium. Plan for c-hyst as above. Subchorionic hematoma- 8cm, fundal. Could be cause of the vaginal bleeding, explained to patient difficult to tell what is exact cause of her bleeding. Plans: Eval in [facility] today for further recs regarding bleeding Needs cbc and ferritin at 28 wks Needs 28 wk labs EFW every 4 wks, last 08/12/24 (efw 92%) ANCS prior to 34 wks C hyst 34 wks Pt verbalized understanding of above. Darío Brown mD documented in this encounter [facility] 08-12-2024 History of Presen t illness Narrative Headache/epigastric pain/blurry vision/swelling? No Cramping/contractions? No Abnormal vaginal discharge? No Spotting or vaginal bleeding? Patient reports continued spotting which has been consistent throughout Loss or gush of fluid like your water may have broken? No Recent ER visits or hospitalizations? no Any concerns that you would like me to mention to the provider today? No REASON FOR OFFICE VISIT: Placenta accreta spectrum. HISTORY OF PRESENT ILLNESS: Griselda Quintana is a pleasant 29 y.o. G for P 3-0 0 3 at 24w6d due on Estimated Date of Delivery: 11/26/24 . has been complicated with History of 3 prior C-sections followed by current with placenta previa and high suspicious of placenta accreta there was confirmed on maternal MRI. Subchorionic hematoma in the fundal later which is starting to resolve and has become smaller. Patient Rh positive Currently the patient has no complaints. The patient denies nausea, vomiting, abdominal pain, vaginal bleeding, SOB or chest pain. Patient Active Problem List Diagnosis Placenta previa antepartum in second trimester Placenta accreta affecting delivery ALLERGIES: No Known Allergies CURRENT MEDICATIONS: Current Outpatient Medications: azithromycin (ZITHROMAX) 250 mg tablet, Take 1 tablet (250 mg total) by mouth in the morning. DIRECTED.. (Patient not taking: Reported on 08/12/2024), Disp: , Rfl: magnesium oxide (MAGOX) 400 mg tablet, Take 1 tablet (400 mg total) by mouth in the morning., Disp: , Rfl: vit,jjon13-ubmi-ftoyu (PRENATABS FA) 29-1 mg tablet, Take 1 tablet by mouth in the morning., Disp: , Rfl: promethazine (PHENERGAN) 12.5 mg tablet, Take 1 tablet (12.5 mg total) by mouth every 6 (six) hours as needed for nausea or vomiting. 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 Cardiovascular and Respiratory System: Denies any chest pain, shortness of breath, and coughing. Abdominal and System: Denies any abdominal pain, nausea, vomiting, vaginal bleeding, and vaginal discharge REVIEW OF ULTRASOUND. Pertinent Ultrasound findings are see report. PHYSICAL EXAMINATION: BP 122/83 Pulse 96 Ht 172.7 cm (5' 7.99 ) Wt 122.5 kg (270 lb) LMP 02/20/2024 BMI 41.06 kg/m . Gravid abdomen, Respirations not labored. Normal gait well oriented in time place and person. RECOMMENDATION: 1. Placenta accreta confirmed on maternal MRI. 2. [facility] delivery at 34 weeks gestation 3. Patient will be scheduled for hysterectomy at 34 weeks gestation after completion of corticosteroids. 4. Repeat CBC and ferritin levels at 28 weeks gestation InCase of anemia patient is a candidate for iron iron 5. Continue serial growth ultrasounds every 4 weeks at [facility] 6. For surgical planning please see detailed MRI report from [place]. Thank you for allowing me to participate in [facility] ayala. If there are any questions, please do not hesitate to call me. Sincerely, LUCILLE MCCAIN MD documented in this encounter [facility] 08-06-2024 Miscellaneous Notes Left voicemail for patient notifying that Dr Mendenhall is okay with patient keeping her USN and Dr Mccain appointment on 08/12/24. documented in this encounter [facility] 08-06-2024 Telephone encounter Note Left voicemail for patient notifying that Dr Mendenhall is okay with patient keeping her USN and Dr Mccain appointment on 08/12/24. [facility] 07-30-2024 Miscellaneous Notes Patient called to review MRI report from [facility]. Impression: Placenta accreta spectrum involving the left posterolateral aspect of the uterus. Placenta previa Anterior fundal subchorionic hemorrhage MRI results are consistent with MFM ultrasound showing placenta accreta spectrum in the setting of a placenta previa and 3 prior sections. In addition a anterior fundal subchorionic hemorrhage is again visualized, measuring approximately 9 cm in craniocaudal dimension. Patient has not experienced any cramping or leaking of fluid. Her last episode of vaginal spotting was over 10 days ago. We reviewed precautions in detail including that vaginal bleeding we will need to be carefully assessed by MFM to differentiate if at all possible, between large subchorionic hematoma and placenta accreta. She we will need to be [facility] delivery at [facility]. Delivery at 34 weeks gestation or sooner if clinically indicated. Delivery via hysterectomy. Jono Mendenhall MD Maternal- Medicine [address] [place] [address] documented in this encounter [facility] 07-30-2024 Telephone encounter Note Patient called to review MRI report from [facility]. Impression: Placenta accreta spectrum involving the left posterolateral aspect of the uterus. Placenta previa Anterior fundal subchorionic hemorrhage MRI results are consistent with MFM ultrasound showing placenta accreta spectrum in the setting of a placenta previa and 3 prior sections. In addition a anterior fundal subchorionic hemorrhage is again visualized, measuring approximately 9 cm in craniocaudal dimension. Patient has not experienced any cramping or leaking of fluid. Her last episode of vaginal spotting was over 10 days ago. We reviewed precautions in detail including that vaginal bleeding we will need to be carefully assessed by MFM to differentiate if at all possible, between large subchorionic hematoma and placenta accreta. She we will need to be transferred to [facility] delivery at [facility]. Delivery at 34 weeks gestation or sooner if clinically indicated. Delivery via hysterectomy. Jono Mendenhall MD Maternal- Medicine [address] [place] [address] [facility] Work Phone: 07-26-2024 History of Presen t illness Narrative Reason for Appointment: Patient ID: Griselda Quintana is a 29 y.o. female who presents for Routine Visit Patient presents today for Return OB appointment. 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 [...] nursing note reviewed. Exam conducted with a injection mold technician present. Vitals: Estimated body mass index is 38.36 kg/m as calculated from the following: Height as of 6/26/23: 5' 8.5 . Weight as of 06/28/24: 256 lb. BP: Patient's last menstrual period was 02/20/2024. ASSESSMENT & PLAN ICD-10-CM 1. Second trimester Z34.92 POCT urinalysis dipstick manually resulted 2. 22 weeks gestation of Z3A.22 3. Diabetes mellitus screening Z13.1 CBC Glucose tolerance, 1 hour CBC Glucose tolerance, 1 hour Patient presents today for a routine obstetrics appointment. Patient is currently 22w3d with a Estimated Date of Delivery: 11/26/24. Patient voiced that she had her MRI performed today at [facility] and no results have been received at this time. Patient to continue with plan of care from [facility] and be seen locally as well. Patient to RTC in 4 weeks. Documented by CAMI Dow on behalf of: Jesus Godinez DO documented in this encounter [facility] 07-23-2024 Miscellaneous Notes Called and LVM for Madiha at [facility]. Requested return call to confirm patient has been scheduled for MRI. documented in this encounter [facility] 07-23-2024 Telephone encounter Note Called and LVM for Madiha at [facility]. Requested return call to confirm patient has been scheduled for MRI. [facility] 07-13-2024 Miscellaneous Notes [employer] faxed referral and patient's ACOG, ultrasound report, and consult note to [facility]. Called and LVM for lucy Blount navigator at to confirm no additional information is needed. documented in this encounter [facility] 07-13-2024 Telephone encounter Note [employer] faxed referral and patient's ACOG, ultrasound report, and consult note to [facility]. Called and LVM for [employer] medicare compliance auditor at to confirm no additional information is needed. [facility] History of Presen t illness Narrative REASON FOR CONSULTATION: subchorionic hematoma and vaginal bleeding, history of delivery x3 HISTORY OF PRESENT ILLNESS: Griselda Quintana is a pleasant 29 y.o. at 20w3d due on Estimated Date of Delivery: 11/26/24. complicated by: Anterior placenta previa in setting of history of delivery x3, can not rule out focal placenta accreta spectrum at vesico uterine interface Subchorionic hematoma, fundal hematoma was again visualized today Multiple episodes of vaginal bleeding in this , last significant bleed 3 weeks ago. She continues to have spotting with wiping. She denies hematuria throughout the day, though notes hematuria 1st thing in the morning unclear if it is from vagina Obesity, Prgravid BMI >35 Today, the patient is doing well. She denies headaches, vision changes, nausea, vomiting, right upper quadrant or epigastric pain, SOB or chest pain. She denies contractions, vaginal bleeding, leaking of fluid. She reports good movement. Aneuploidy screening: low risk cell free DNA ([place]) Carrier screening: I have reviewed the pertinent available patient records including but not limited to notes, labs and images. 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 floaters of both eyes SURGICAL HISTORY: Past Surgical History: Procedure Laterality Date SECTION X 3 08/2009, 2017, 08/04/2023 TONSILLECTOMY 05/12/2012 FAMILY/GENETIC HISTORY: Family History Problem Relation Age of Onset Hypertension Maternal Grandmother Hyperlipidemia Maternal Grandmother Cancer Maternal Grandfather Hyperlipidemia Paternal Grandmother Heart disease Paternal Grandmother Cancer Paternal Grandfather SOCIAL HISTORY: Social History Tobacco Use Smoking status: Never Substance Use Topics Alcohol use: Not Currently Drug use: Never ALLERGIES: No Known Allergies CURRENT MEDICATIONS: Current Outpatient Medications: magnesium oxide (MAGOX) 400 mg tablet, Take 1 tablet (400 mg total) by mouth in the morning., Disp: , Rfl: vit,ivaf10-kqxa-fvjkj (PRENATABS FA) 29-1 mg tablet, Take 1 tablet by mouth in the morning., Disp: , Rfl: azithromycin (ZITHROMAX) 250 mg tablet, Take 1 tablet (250 mg total) by mouth in the morning. DIRECTED.. (Patient not taking: Reported on 07/12/2024), Disp: , Rfl: promethazine (PHENERGAN) 12.5 mg tablet, Take 1 tablet (12.5 mg total) by mouth every 6 (six) hours as needed for nausea or vomiting. (Patient not taking: Reported on 07/12/2024), Disp: , Rfl: RECENT HOSPITALIZATION: none HABITS: Patient activity no restrictions, diet no restrictions REVIEW OF SYSTEMS: Head and Neck: Negative for any dizziness and headaches. Cardiovascular and Respiratory System: Denies any chest pain, shortness of breath, and coughing. Abdominal and System: Denies any abdominal pain, nausea, vomiting, vaginal bleeding, and vaginal discharge REVIEW OF TESTS AND ULTRASOUND REPORTS: Referral records and [facility] chart were reviewed Pertinent Ultrasound findings are see formal ultrasound report. PHYSICAL EXAMINATION: BP 122/76 Pulse 80 Ht 172.7 cm (5' 8 ) Wt 118.8 kg (261 lb 12.8 oz) LMP 02/20/2024 BMI 39.81 kg/m Well-appearing in no distress. Respirations not labored, speaking comfortably in full sentences Gravid abdomen OVERALL ASSESSMENT -Griselda Quintana is a pleasant 29 y.o. at 20w3d -history of delivery x3 -Anterior placenta previa in setting of history of delivery x3, can not rule out focal placenta accreta spectrum -subchorionic hematoma, fundal -recurrent episodes of vaginal bleeding in -obesity, pregravid BMI >35 COUNSELING Ultrasound findings reviewed today included fundally located subchorionic hematoma along with anterior placenta previa, was increased suspicion for focal placenta accreta. An anterior placenta previa was identified today. The risk for placenta accreta is 60% given the combination of placenta previa and 3 prior C-sections. I am concerned about a focal placenta accreta at the vesico uterine interface with loss of the myometrial interface and increased vascularity. There was no evidence of invasion into the cervix with a well-defined hypoechoic layer between the placenta and the uterine wall. In addition, the placenta is homogeneous without any evidence of lakes. At this point, if patient has significant vaginal bleeding, I I recommended evaluation in [facility] i[facility] due to the suspicion for placenta accreta need for surgical management including massive transfusion protocol. Unfortunately, given the significance fundal subchorionic hematoma, vaginal bleeding in this could be either due to the placenta previa or the subchorionic hematoma. To facilitate a diagnosis, a pelvic MRI for evaluation of placenta accreta spectrum was ordered at [facility]. I recommended pelvic rest and advised her to contact her OB provider if she experiences any vaginal bleeding. I recommend re-evaluation of the placenta in 4 weeks at [facility] via repeat transvaginal ultrasound. Return precautions were reviewed in detail. We will reevaluate the placental location in the third trimester, but the previa is unlikely to resolve. Assuming that this finding persists, even in the absence of placenta accreta spectrum, we discussed the need for delivery, the recommendation for delivery at 36-37 weeks to prevent bleeding associated with labor, and the risk of hemorrhage and/or hysterectomy. However, if placenta accreta spectrum is confirmed, delivery is recommended at 34-36 weeks gestation. Detailed discussion regarding placenta accreta management was deferred, the patient understands that this is a morbid procedure with significant morbidity and mortality including delivery, prematurity, maternal hemorrhage and even maternal . SUMMARY/RECOMMENDATION: Incomplete level 2 anatomy ultrasound, attempt completion in 4 weeks through [facility] Re-evaluation of placenta previa and suspicion of placenta accreta spectrum via transvaginal ultrasound in 4 weeks through [facility]. Full bladders needed for proper evaluation. Pelvic MRI to evaluate placenta accreta spectrum at [facility] Follow up in [facility] in 4 weeks DISPOSITION: At this point the patient is in complete care of her button broacher. Patient does have ultrasound and office visit scheduled with us. Thank you for allowing me to participate in the care of Griselda Quintana. If there any questions please do not hesitate to contact us. Total time spent was 68 minutes: Preparing to see the patient (e.g., review of tests) Obtaining and/or reviewing separately obtained history Performing a medically appropriate examination and/or evaluation Counseling and educating the patient/family/caregiver Ordering medications, tests, or procedures Referring and communicating with other health acute care nurse (not separately reported) Documenting clinical information in the electronic or other health record Jono Mendenhall MD Maternal- Medicine [place] [id number] [facility] [address] [place] [address] [facility], the CDC, and other organizations representing maternal and public health professionals recommend that , , and lactating people and those considering receive the COVID-19 vaccination. Vaccination is the best method to reduce maternal and complications of SARS-CoV-2 infection. This document was created with [employer] technology. Though I make every effort to review the dictation as it is transcribed, on occasion the spoken word can be misinterpreted by the technology leading to inappropriate words, phrases, or sentences. This note is addressed to the requesting provider as a consultation for clinical guidance. Specific medical abbreviations are occasionally used and those are generally approved by the [place]?Board of?Obstetrics and?Gynecology?as well as?Jayna lechuga abbreviations. The above plan of care was based solely on the diagnoses for which a consultation was requested. ?More frequent testing may be indicated based on her other medical/obstetrical conditions. The management of other or medical conditions is beyond the scope of requested consultation and will continue to be followed by the primary button broacher or primary care provider. Note to patient: The 21st Century Cures Act makes medical notes like these available to patients in the interest of transparency. However, be advised this is a medical document. It is intended as peer to peer communication. It is written in medical language and may contain abbreviations or verbiage that are unfamiliar. It may appear blunt or direct. Medical documents are intended to carry relevant information, facts as evident, and the clinical opinion of the practitioner. Headache/epigastric pain/blurry vision/swelling? Headaches Cramping/contractions? No Abnormal vaginal discharge? no Spotting/vaginal bleeding? Bleeding whole , bleeds more at night , more darker blood, patient aware of hematoma , and previa Loss or gush of fluid like your water may have broken? No Do you have cats at home? No Do you change the litter box (reason: risk of toxoplasmosis)? N/a Genetic testing done this here or other office? low risk, male Have you been seen here at [facility] in a previous ? No Recent ER visits or hospitalizations? No Bring blood sugar log or meter with you today? (Please bring them with you for every visit at [facility]) n/a Flu vaccine (Mar-July)? No Any concerns that you would like me to mention to the provider today? No documented in this encounter [facility] 06-28-2024 History of Presen t illness Narrative Reason for Appointment: Patient ID: Griselda Quintana is a 29 y.o. female who presents for Routine Visit Patient presents today for Return OB appointment. Current Medications: has a current medication list which includes the following prescription(s): azithromycin, magnesium oxide, vitamin, and promethazine. 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 Objective Physical Exam Constitutional: Appearance: Normal appearance. [...] nursing note reviewed. Exam conducted with a injection mold technician present. Vitals: Estimated body mass index is 38.36 kg/m as calculated from the following: Height as of 11/18/22: 5' 8.5 . Weight as of this encounter: 256 lb. BP: 120/70 Patient's last menstrual period was 02/20/2024. Assessment/Plan Encounter Diagnosis: ICD-10-CM 1. 18 weeks gestation of Z3A.18 POCT urinalysis dipstick manually resulted Alpha fetoprotein, maternal Alpha fetoprotein, maternal 2. Second trimester Z34.92 POCT urinalysis dipstick manually resulted Alpha fetoprotein, maternal Alpha fetoprotein, maternal 3. Screening, , for anatomic survey Z36.89 US OB 14+ weeks anatomy scan 4. Nonintractable headache, unspecified chronicity pattern, unspecified headache type R51.9 magnesium oxide (Mag-Ox) 400 MG tablet Return OB: Patient presents today for a routine obstetrics appointment. Patient is currently 19w4d . Patient states she is doing well but has complaints of being tired due to current . Patient has verbalizes frequent movement. labor precautions was discussed/given and patient was instructed to perform kick counts three times a day. Orders Placed This Encounter Procedures US OB 14+ weeks anatomy scan Alpha fetoprotein, maternal POCT urinalysis dipstick manually resulted Follow Up: Patient is to return to office in 4 week for routine OB appointment. Documented by Jesus Godinez DO on behalf of: Jesus Godinez DO documented in this encounter [facility] 06-08-2024 Miscellaneous Notes LMOM for return call to schedule usn/consult. documented in this encounter [facility] [employer] 06-08-2024 Telephone encounter Note LMOM for return call to schedule usn/consult. [facility] 05-31-2024 History of Presen t illness Narrative [...] Abnormal uterine bleeding (AUB) Chronic tonsillitis Depression (CMS/HCC) Depression screening Encounter for female family planning [...] nursing note reviewed. Exam conducted with a injection mold technician present. Vitals: Estimated body mass index is [...] or undercooked meat, and stay away from [facility]. Patient has been consulted regarding any further do's and don'ts of . Patient voiced understanding and all questions and concerns were answered. Discussed with patient seeing [facility] for Level II ultrasound due to subchorionic Hematoma and previous . Patient will have Repeat on 12/12/2024. Updated LMP as initial date was entered in error. Orders Placed This Encounter Procedures US OB limited 1+ fetuses POCT urinalysis dipstick manually resulted Follow Up: Patient is to return in 4 weeks for routine OB appointment. Documented by Mirna Solis LPN on behalf of: Jesus Godinez DO documented in this encounter [facility] 05-03-2024 History of Presen t illness Narrative [...] or undercooked meat, and stay away from [facility]. Patient has also been advised to not [...] Katerina Escobar LPN documented in this encounter [facility] 01-13-2024 History of Presen t illness Narrative Reason for Appointment: Patient ID: Griselda Quintana is a 28 y.o. female who presents for Weight Management (Adipex #5) Patient presents today via telephone call for a telehealth appointment. Patients Phone #: [phone] (mobile) Current Medications: has a current medication [...] of: KENDRA Palencia documented in this encounter [facility] 07-08-2023 History of Presen t illness [...] studies 11/18/2022 Abnormal uterine bleeding 11/18/2022 Depression ([facility]) 11/18/2022 Generalized anxiety disorder ([facility]) 11/18/2022 Malodorous urine 11/18/2022 Obesity 11/18/2022 Vitreous [...] of: KENDRA Palencia documented in this encounter [facility] 08-21-2022 Evaluation note Encounter Date Diagnosis Assessment Notes Jul, Acute non-recurrent frontal sinusitis (ICD-10 - J01.10) [facility] Other 03-14-2023 Evaluation note* Encounter Date Diagnosis Assessment Notes Treatment Notes Treatment Clinical Notes Jul, Dysuria (ICD-10 - R30.0) [facility] Other 11-01-2022 Evaluation note* Encounter Date Diagnosis Assessment Notes Treatment Notes Treatment Clinical Notes Mar, Anxiety (ICD-10 - F41.9) [facility] Other 10-07-2022 Evaluation note* Encounter Date Diagnosis Assessment Notes Treatment Notes Treatment Clinical Notes Feb, Encntr for general adult medical exam w/o abnormal findings (ICD-10 - Z00.00) Feb, Other No change today...Continue as is...FU 6 months.... [facility] Other 09-21-2022 Evaluation note* Encounter Date Diagnosis Assessment Notes Treatment Notes Treatment Clinical Notes Jan, Contact with and (suspected) exposure to other viral communicable diseases (ICD-10 - Z20.828) [facility] Other 09-19-2022 Evaluation note* Encounter Date Diagnosis Assessment Notes Treatment Notes Treatment Clinical Notes Jan, Contact with and (suspected) exposure to other viral communicable diseases (ICD-10 - Z20.828) [facility] Other 08-26-2022 Evaluation note* Encounter Date Diagnosis Assessment Notes Treatment Notes Treatment Clinical Notes Dec, Anxiety (ICD-10 - F41.9) E Rx sent. Lengthy discussion with patient that I think we need to try something than just a straight SSRI. We will see patient back in review. We talked about potential side effects as well as outcomes. She will call with any concerns. [facility] Other 08-20-2022 Evaluation note* Encounter Date Diagnosis Assessment Notes Treatment Notes Treatment Clinical Notes Dec, Contact with and (suspected) exposure to other viral communicable diseases (ICD-10 - Z20.828) [facility] Other 10-11-2021 Evaluation note* Encounter Date Diagnosis Assessment Notes Treatment Notes Treatment Clinical Notes Feb, Encntr for general adult medical exam w/o abnormal findings (ICD-10 - Z00.00) Feb, Other No change today...Continue as is...FU PRN/Yearly... [facility] Other Evaluation noteNo InformationNort [facility] Other Evalubbbma note* Diagnosis Third trimester state, incidental documented [facility] Work Phone: Evaluation note* Diagnosis Missed menses , unspecified gestational age Encounter for supervision of normal first in first trimester documented in this encounter [facility] HealthcareEvaluation note* Diagnosis Weight gain Other symptoms concerning nutrition, metabolism, and development Encounter for weight management documented in this encounter [facility] HealthcareEvaluation note* Diagnosis Second trimester state, incidental 13 weeks gestation of Subchorionic hematoma in first trimester, single or unspecified fetus documented in this encounter [facility] HealthcareEvaluation note* Diagnosis Encounter for anatomic survey- Primary documented in this encounter [facility] SystemEvaluation note* Diagnosis 18 weeks gestation of Second trimester state, incidental Screening, , for anatomic survey Encounter for anatomic survey Nonintractable headache, unspecified chronicity pattern, unspecified headache type documented in this encounter [facility] HealthcareEvaluation note* Diagnosis 20 weeks gestation of - Primary History of delivery affecting Vaginal bleeding in Placenta previa antepartum in second trimester 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 documented in this encounter [facility] SystemEvaluation note* Diagnosis Placental problem affecting fourth - Primary documented in this encounter [facility] SystemEvaluation note* Diagnosis Second trimester state, incidental 22 weeks gestation of Diabetes mellitus screening Screening for diabetes mellitus documented in this encounter [facility] HealthcareEvaluation note* Diagnosis Abnormal ultrasonic finding on screening of mother, antepartum- Primary documented in this encounter [facility] note* Diagnosis Placenta previa antepartum in second trimester- Primary Placenta accreta affecting delivery documented in this encounter [facility] SystemEvaluation note* Diagnosis Vaginal bleeding in , second trimester- Primary Placenta previa antepartum in second trimester Placenta accreta affecting delivery History of 3 sections Subchorionic hematoma, antepartum, single or unspecified fetus Abnormal ultrasonic finding on screening of mother, antepartum care, antepartum documented in this encounter [facility] note* Diagnosis Placenta previa antepartum in second trimester- Primary Placenta accreta affecting delivery Subchorionic hematoma, antepartum, single or unspecified fetus documented in this encounter [facility] SystemEvaluation note* Diagnosis Second trimester state, incidental 26 weeks gestation of documented in this encounter [facility] HealthcareEvaluation note* Diagnosis Placenta accreta, second trimester- Primary care, subsequent , antepartum History of 3 sections Anxiety and depression Placenta previa antepartum in second trimester Anemia affecting in second trimester [facility] Diagnosis Iron deficiency anemia, unspecified iron deficiency anemia type- Primary [facility] Diagnosis Iron deficiency anemia secondary to inadequate dietary iron intake- Primary Placenta accreta, second trimester Anemia affecting in second trimester Iron malabsorption Other specified intestinal malabsorption [facility] N[facility]ative - Reported* Type Description Date Medical History Hx of MRSA Medical History anxiety Surgical History tonsillectomy and adenoidectomy 2012 Surgical History c-sections 2009 and 2016 Hospitalization History C Sections [facility] Other InstructionsNot on filedocumented in this encounter [facility]ructionsNot on filedocumented in this encounter [facility] on filedocumented in this encounter [facility]Not on filedocumented in this [facility] on filedocumented in this [facility] on filedocumented in this [facility]Not on filedocumented in this encounter [facility]ructionsNot on filedocumented in this encounter [facility]ructionsNot on filedocumented in this encounter [facility]ructionsNot on filedocumented in this encounter [facility] SystemInstructionsNot on filedocumented in this encounter [facility] for [facility] Narrative* Consultation (Routine) - Pending Review Specialty Diagnoses / Procedures Referred By Patric t Referred To Contact Hematology Diagnoses Placenta accreta, second trimester Anemia affecting in second trimester Nadia Weir MD [address] [facility] [place] [address] Phone: tel: fax: [facility] [address] [place] [address] Phone: tel: fax: Referral ID Status Reason Start Date Expiration Date V isits Requested Visits Authorized [id number] Pending Review 08/30/2024 08/30/2025 1 1 [facility] Summary Purpose Family History No Family History Records FoundNo Family History Records FoundNo Family History Records FoundNo Family History Records FoundNo Family History Records Found Advance Directives Advance Directive Response Recorded Date/ Time Advance Directives No April 03, 2018 12:04pm Chief Complaint and Reason for Visit Chief Complaint frmc pre emp Additional Source Comments INFORMATION SOURCE (unrecogn ized section and content) DATE CREATED AUTHOR 12/19/2020 [facility] DATE CREATED AUTHOR AUTHOR'S ORGANIZ ATION 05/25/2024 [facility] DATE CREATED AUTHOR AUTHOR'S ORGANIZ ATION 07/28/2024 [facility] DATE CREATED AUTHOR AUTHOR'S ORGANIZ ATION 08/24/2024 [facility] DATE CREATED AUTHOR AUTHOR'S ORGANIZ ATION 09/01/2024 [facility] REASON FOR VISIT (unrecogniz ed section and content) Reason Comments Routine Visit Reason Comments Amenorrhea Reason Comments Weight Management Adipex #5 Reason Comments subchorionic hematoma Vaginal Bleeding hx c/s x3 recent c/s 08/04/23 Reason Comments Placenta Accreta Reason Comments High Risk Gestation Initial Specialty Diagnoses / Procedures Referred By Contac t Referred To Contact Obstetrics & Gynecology / Obstetrics and Gynecology Diagnoses Abnormal ultrasonic finding on screening of mother, antepartum Jono Mendenhall MD [address] [facility] [address] [place] [address] Phone: tel: fax: Keely Hwang MD [address] [place] [address], [place] [address] Phone: tel: fax: Referral ID Status Reason Start Date Expiration Date Visits Requested Visits Authorized [id number] Pending Review Specialty Services Required 08/02/2024 08/02/2025 1 1 Reason Comments Routine Visit Care Teams (unrecognized sec tion and content) Tank Cleaner Relationship Specialty Start Date End Date Urban Santana MD [address] [place] [phone] PCP - General Family Medicine 11/18/22 Team [...] End: September 18, 2023 Tashi Tom Jr, Attending Provider Active S tart: September 18, 2023 End: September 18, 2023 Tank Cleaner Relationship Specialty Start Date End Date Urban Santana MD [address] [phone] PCP - General Family Medicine 11/18/22 Tank Cleaner Relationship Specialty Start Date End Date Urban Santana MD [address] [phone] PCP - General Family Medicine 11/18/22 Tank Cleaner Relationship Specialty Start Date End Date Urban Santana MD [address] [phone] PCP - General Family Medicine 11/18/22 Tank Cleaner Relationship Specialty Start Date End Date Urban Santana MD [address] [phone] PCP - General Family Medicine 11/18/22 Tank Cleaner Relationship Specialty Start Date End Date Urban Santana MD [address] [phone] PCP - [facility] 11/18/22 Tank Cleaner Relationship Specialty Start Date End Date Urban Santana MD [address] [phone] PCP - [facility] 11/18/22 Tank Cleaner Relationship Specialty Start Date End Date Urban Santana MD [address] [place] [phone] PCP - [facility] 11/18/22 Tank Cleaner Relationship Specialty Start Date End Date Urban Santana MD [address] [phone] PCP - [facility] 11/18/22 Arpita Gusman PA [address] [place] [address] Dr [place], [id number] PCP - [facility] 05/26/24 Tank Cleaner Relationship Specialty Start Date End Date Urban Santana MD [address] [place] [phone] PCP - [facility] 11/18/22 Arpita Gusman PA [address] [place] [address] [place] [address] PCP - [facility] 05/26/24 Tank Cleaner Relationship Specialty Start Date End Date Urban Santana MD [address] [place] [phone] PCP - [facility] 11/18/22 Arpita Gusman PA [address] [facility] [place] [address] PCP [facility] 05/26/24 Tank Cleaner Relationship Specialty Start Date End Date Urban Santana MD [address] [place] [phone] PCP - [facility] 11/18/22 Arpita Gusman PA [address] [facility] [place] [address] PCP - [facility] 05/26/24 Goals (unrecognized section and content) Goals may [...] THE PRIMARY CLINICAL RECORDS. [facility]. provides no warranty or guarantee of the accuracy or completeness of information in this document.
[2024-09-07 19:30] VITALS: BP 119/60; PULSE 83
== END 2024-09-07 20:05 | disposition home or self-care (01) ==
LOC: US 18:54 → FBC 18:54
PROVIDERS: PCP Family Medicine; Visit Provider Obstetrics & Gynecology
DX: O44.02 Complete placenta previa NOS or without hemorrhage, second trimester (principal); O43.212 Placenta accreta, second trimester; Z3A.20 20 weeks gestation of pregnancy
CPT/HCPCS: 76818

== ENCOUNTER 2024-09-10 06:06 | Observation (INO) | payer OTHER, SELFPAY ==
[2024-09-10] VITALS (10 sets, daily range): BP systolic 108–118; BP diastolic 65–80; PULSE 88–110; TEMP 36.6–36.8
--- OUTSIDE RECORDS SUMMARY | 2024-09-10 06:11 | XMS_ITS | CCD ---
Author Organization [facility] CliniSyms Care Team Providers Care Technical Support Assistant Name Role Phone DR SURY CENTENO Primary Care Unavailable MAGUE, DR MAUDE Pathak Admitting Unavailabl e MAGUE, DR MAUDE Pathak Consulting Unavailabl e MAGUE, DR MAUDE Pathak Attending Unavailabl Jackie Dhillon Consulting Unavailable Laxmi Santana Unavailable Georgie Disla Unavailable Dontrell Gallegos Unavailable Susanne Huitron Unavailable Max VELEZ [place] Primary Care Provider [phone] DO Laxmi Santana Primary Care Provider DO Tashi Tom Jr Attending Provider [phone] Laxmi Santana Primary Care Unavailable Tashi Tom Jr Admitting Unavailable Tashi Tom Jr Attending Unavailable Jesus Godinez Admitting Unavailable Herbert, Jesus Attending Unavailable Laxmi Santana Primary Care Unavailable Unavailable Primary Care Provider UnavailArpita Gong Unavailable JONO MENDENHALL Attending Unavailable PCP, NO Referring Unavailable JONO MENDENHALL Primary Care Unavailable Unavailable Primary Care Provider Unavailabl e HERBERT, JESUS Referring Unavailable HERBERT, JESUS Attending Unavailable ARPITA OLVERA Attending Unavailable ARPITA OLVERA Attending Unavailable HERBERT, JESUS Attending Unavailable HERBERT, JESUS Attending Unavailable ARPITA OLVERA Attending Unavailable HERBERT, JESUS Attending Unavailable Max VELEZ [place] Primary Care Provider [phone] JONO MENDENHALL Attending Unavailable HERBERT, JESUS R Referring Unavailable HERBERT, JESUS R Referring Unavailable HERBERT, JESUS R Referring Unavailable LUCILLE MCCAIN Attending Unavailable JESUS GODINEZ Referring Unavailable CAROLA KUMARI Attending Unavailable CAROLA KUMARI Referring Unavailable REBEL PEPPER Admitting Unavailable REBEL PEPPER Attending Unavailable LUCILLE MCCAIN Consulting Unavailable MAIKEL DAVID Consulting Unavailable CAROLA KUMARI Referring Unavailable JESUS GODINEZ Referring Unavailable JESUS GODINEZ Referring Unavailable NATIVIDAD DUNHAM Attending UnavailKEELY Pelayo Referring Unavailable DIYA DODD Attending Unavailable NADIA ELLIS Referring Unavailable Medications Current Medications Medication Drug [...] 01-18-2022 take 1 capsule by [facility] every twenty-four hours DULoxetine HCl 20 [...] sulfate 325 mg delayed release oral tablet (11 sources) Start: End: take 1 tablet by [...] morning. 30 capsule 3 06/11/2023 10/09/2023 Active vit,rvuw22-dchc-nzcvx (PRENATABS FA) 29-1 mg tablet (18 sources) take 1 tablet by mouth in the morning vit,itfi78-buzx-abcyn (PRENATABS FA) 29-1 mg tablet Take 1 tablet by mouth in the morning. Suspended take 1 tablet by iliana th in the morning vit,llsv28-fcud-uuwdy (PRENATAB S FA) 29-1 mg tablet Take [...] disorder; Translations: [Depression] Onset: 11-18-2022 11-18-2022 Chronic Mood disorders (9 sources) Mood disorders; Translations: [Depression, unspecified] Onset: 08-17-2024 Resolved: 08-30-2024 08-17-2024 Open wounds of extremities (4 sources) Laceration [...] Translations: [Insomnia, unspecified] Episodic Residual codes; unclassified (2 sources) Gestation [...] gain; Translations: [Abnormal weight gain] 01-13-2024 Episodic Residual codes; unclassified (14 sources) Gestation period, 13 weeks; Translations: [13 weeks gestation of ] Onset: 05-31-2024 05-31-2024 Episodic Unclassified (1 source) Patient encounter status 06-08-2024 Results Test Name Value Interpretation Reference Range Facility OB BPP W NON-STRESS on 09-08-2024 [place] [address] Ultrasound Report Signed Patient: GRISELDA MACEDO MR#: [id number] : 1995 Acct:[id number] Age/Sex: 29 / F ADM Date: 09/07/24 Loc: US Attending Dr: Jesus Godinez D.O. Ordering Physician: Jesus Godinez D.O. Date of Service: 09/07/24 Procedure(s): US OB BPP w non-stress Accession Number(s): [id number] cc: Jesus Godinez D.O.; LAXMI SANTANA [place] [id number] Patient Name: GRISELDA MACEDO MRN: [id number] date: 1995 Sex: F Assigned Patient Location: [facility] Current Patient Location: Accession/Order Number: [id number] Exam Date: 09/08/2024 07:47 Report Date: 09/08/2024 07:50 At the request of: JESUS GODINEZ DO Procedure: US OB BPP w non-stress BIOPHYSICAL PROFILE: COMPARISON: 06/24/2024 CLINICAL INFORMATION: SUBCHORIONIC HEMATOMA IN FIRST TRIMESTER O41.8X10 There is a single live intrauterine gestation in cephalic presentation. The reported gestational age is 20 weeks 4 days. The heart rate measures 135 beats per minute. FINDINGS: TONE: 1 or more episodes of activity extension and flexion of extremity or opening and closing of the hand [Y] 2/2 GROSS BODY MOVEMENTS: 3 or more discrete body or limb movements [Y] 2/2 BREATHING MOVEMENTS: 1 or more episodes of breathing lasting at least 30 seconds [Y] 2/2 CATHY: A single deepest vertical pocket of amniotic fluid greater than 2 cm [Y] 2/2 CATHY: 17.5 cm. This is in upper normal range. Total score: 8/8 US/US OB BPP w non-stress IMPRESSION: NORMAL BIOPHYSICAL PROFILE . Impression dictated by: Fouzia Basilio M.D.09/08/2024 7:50 AM Dictation Location: [place] [address] Electronically authenticated by: [id number] Y Date: 09/08/2024 07:50 Dictated By: Fouzia Basilio M.D. Signed By: 09/08/24 0752 DD/ 075 TD/TT: Halver Machine Operator: [facility] Radiology, Radiologist, - 09/08/2024 [place] [address] Ultrasound Report Signed Patient: GRISELDA MACEDO MR#: [id number] : 1995 Acct:[id number] Age/Sex: 29 / F ADM Date: 09/07/24 Loc: US Attending Dr: Jesus Godinez D.O. Ordering Physician: Jessu Godinez D.O. Date of Service: 09/07/24 Procedure(s): US OB BPP w non-stress Accession Number(s): [id number] cc: Jesus Godinez D.O.; LAXMI SANTANA [place] [address] Patient Name: GRISELDA MACEDO MRN: [facility]:[id number] date: 1995 Sex: F Assigned Patient Location: [facility] Current Patient Location: Accession/Order Number: [id number] Exam Date: 09/08/2024 07:47 Report Date: 09/08/2024 07:50 At the request of: JESUS GODINEZ DO Procedure: US OB BPP w non-stress BIOPHYSICAL PROFILE: COMPARISON: 06/24/2024 CLINICAL INFORMATION: SUBCHORIONIC HEMATOMA IN FIRST TRIMESTER O41.8X10 There is a single live intrauterine gestation in cephalic presentation. The reported gestational age is 20 weeks 4 days. The heart rate measures 135 beats per minute. FINDINGS: TONE: 1 or more episodes of activity extension and flexion of extremity or opening and closing of the hand [Y] 2/2 GROSS BODY MOVEMENTS: 3 or more discrete body or limb movements [Y] 2/2 BREATHING MOVEMENTS: 1 or more episodes of breathing lasting at least 30 seconds [Y] 2/2 CATHY: A single deepest vertical pocket of amniotic fluid greater than 2 cm [Y] 2/2 CATHY: 17.5 cm. This is in upper normal range. Total score: 8/ US/US OB BPP w non-stress IMPRESSION: NORMAL BIOPHYSICAL PROFILE . Impression dictated by: Fouzia Basilio M.D.09/08/2024 7:50 AM Dictation Location: [place] [address] Electronically authenticated by: [id number] Y Date: 09/08/2024 07:50 Dictated By: Fouzia Basilio M.D. Signed By: 09/08/24 0752 DD/ 0750 TD/TT: Halver Machine Operator: [facility] Radiology Study observation (narrative) [facility] US OB BPP W NON-STRESS Ordered By: Radiologist Radiology on 09-08-2024 [facility] Work Phone: Urinalysis macro (dipstick) panel (U)on 08-23-2024 Bilirubin, UA Negative Negative - 4(70) +++ mg/dL [facility] Blood, UA Negative Negative - 50 Rodriguez/mcL [facility] Clarity, UA Clear [facility] Color, UA Yellow [facility] Glucose, UA Negative Negative - 2000(110) ++++ mg/dL [facility] Interpretation and review of laboratory results Normal [facility] Ketones, UA Negative Negative - 160(16) ++++ mg/dL [facility] Leukocytes, UA Negative Negative - 500+++ Dg/mcL [facility] Nitrite, UA Negative Negative - Positive [facility] pH, UA 7.5 5 - 9 [facility] Protein, UA Negative Negative - 2000(20) ++++ mg/dL [facility] Spec Grav, UA 1.015 1 - 1.03 [facility] Urobilinogen, UA 0.2 0.2 - 12 mg/dL [facility] CBC AND AUTO DIFFon 08-19-19 ABSOLUTE BASOPHIL 0.0 X10E9/L Normal 0.0-0.2 [facility] Comment on above: Performed By: #### C BCA #### [facility] ([id number]) [address], [address] [place] [address] ABSOLUTE NEUTROPHIL 6.7 X10E9/L High 1.5-6.6 [facility] Comment on above: Performed By: #### C BCA #### [facility] ([id number]) [address], [address] [place] [address] Basophils/100 WBC (Bld) 0.2 % Normal [facility] Comment on above: Performed By: #### C BCA #### [facility] ([id number]) [address], [address] [place] [address] Eosinophils (Bld) [#/Vol] 0.1 10*3/uL Normal 0.0-0.4 [facility] Comment on above: Performed By: #### C BCA #### [facility] ([id number]) [address], [address] [place] [address] Eosinophils/100 WBC (Bld) 0.9 % Normal [facility] Comment on above: Performed By: #### C BCA #### [facility] ([id number]) [address], [address] [place] [address] Erythrocyte distribution width (RBC) [Ratio] 14.0 % Normal 11.5-15.0 [facility] Comment on above: Performed By: #### C BCA #### [facility] ([id number]) [address], [address] [place] [address] Hematocrit (Bld) [Volume fraction] 34.5 % Low 35-47 [facility] Comment on above: Performed By: #### C BCA #### [facility] ([id number]) [address], [address] [place] [address] Hemoglobin (Bld) [Mass/Vol] 11.3 g/dL Low 11.7-15.5 [facility] Comment on above: Performed By: #### C BCA #### [facility] ([id number]) [address], [address] [place] [address] Lymphocytes (Bld) [#/Vol] 2.4 10*3/uL Normal 1.0-3.5 [facility] Comment on above: Performed By: #### C BCA #### [facility] ([id number]) [address], [address] [place] [address] Lymphocytes/100 WBC (Bld) 25.2 % Normal [facility] Comment on above: Performed By: #### C BCA #### [facility] ([id number]) [address], [address] [place] [address] MCH (RBC) [Entitic mass] 26.6 pg Low 27-34 [facility] Comment on above: Performed By: #### C BCA #### [facility] ([id number]) [address], [address] [place] [address] MCHC (RBC) [Mass/Vol] 32.6 g/dL Normal 32-[address] [facility] Comment on above: Performed By: #### C BCA #### [facility] ([id number]) [address], [address] [place] [address] MCV (RBC) [Entitic vol] 82 fL Normal 80-100 [facility] Comment on above: Performed By: #### C BCA #### [facility] ([id number]) [address], [address] [place] [address] Monocytes (Bld) [#/Vol] 0.5 10*3/uL Normal 0-0.9 [facility] Comment on above: Performed By: #### C BCA #### [facility] ([id number]) [address], [address] [place] [address] Monocytes/100 WBC (Bld) 4.8 % Normal [facility] Comment on above: Performed By: #### C BCA #### [facility] ([id number]) [address], [address] [place] [address] Neutrophils/100 WBC (Bld) 68.9 % Normal [facility] Comment on above: Performed By: #### C BCA #### [facility] ([id number]) [address], [address] [place] [address] Platelet mean volume (Bld) [Entitic vol] 7.7 fL Normal 7-12 [facility] Comment on above: Performed By: #### C BCA #### [facility] ([id number]) [address] [address] [place] [address] Platelets (Bld) [#/Vol] 269 10*3/uL Normal 150-450 [facility] Comment on above: Performed By: #### C BCA #### [facility] ([id number]) [address], [address] [place] [address] RBC COUNT 4.24 X10E12/L Normal 3.80-5.20 [facility] Comment on above: Performed By: #### C BCA #### [facility] ([id number]) [address], [address] [place] [address] WBC (Bld) [#/Vol] 9.7 10*3/uL Normal 4.0-11.0 [facility] Comment on above: Performed By: #### C BCA #### [facility] ([id number]) [address], [address] [place] [address] Glucose 1 Hr post dose gluco se [Mass/Vol]on 08-18-2024 1ST HR GTT 87 mg/dL Low 120-170 [facility] Comment on above: Performed By: #### C BCA, 91770-1, PINR, 44705-2, 2276-4, 04860-9, 97110-4 #### [facility] ([id number]) [address], [address] [place] [address] Glucose Glucometer (BldC) [M ass/Vol]on 08-18-2024 Glucose [Mass/Vol] 94 mg/dL Normal 65-99 [facility] KLEIHAUER BETKEon 08-18-2024 KB SPECIMEN TYPE VENOUS Normal [facility] Comment on above: Performed By: #### C BCA, 25515-1, PINR, 32131-4, 2276-4, 56553-3, 20503-0 #### [facility] ([id number]) [address], [address] [place] [address] [facility] BETKE <0.1 Normal <0.1 [facility] Comment on above: Performed By: #### C BCA, 06060-4, PINR, 73507-7, 2276-4, 11394-3, 80187-1 #### [facility] ([id number]) [address], [address] [place] [address] CBC AND AUTO DIFFon 08-18-19 25 ABSOLUTE BASOPHIL 0.0 X10E9/L Normal 0.0-0.2 [facility] Comment on above: Performed By: #### C BCA, 99138-3, PINR, 69767-8, 2276-4, 59256-2, 28642-3 #### [facility] ([id number]) [address], [address] [place] [address] ABSOLUTE NEUTROPHIL 6.9 X10E9/L High 1.5-6.6 [facility] Comment on above: Performed By: #### C BCA, 27068-2, PINR, 43622-4, 2276-4, 27994-3, 93580-1 #### [facility] ([id number]) [address], [address] [place] [address] Basophils/100 WBC (Bld) 0.3 % Normal [facility] Comment on above: Performed By: #### C BCA, 94151-5, PINR, 89752-2, 2276-4, 97248-6, 43504-3 #### [facility] ([id number]) [address], [facility] [address] [place] [address] Eosinophils (Bld) [#/Vol] 0.1 10*3/uL Normal 0.0-0.4 [facility] Comment on above: Performed By: #### C BCA, 18444-5, PINR, 22080-5, 2276-4, 94719-1, 22169-9 #### [facility] ([id number]) [address], [address] [address] Eosinophils/100 WBC (Bld) 0.6 % Normal [facility] Comment on above: Performed By: #### C BCA, 98401-7, PINR, 00756-4, 2276-4, 97620-6, 19178-9 #### [facility] ([id number]) [address], [address] [address] Erythrocyte distribution width (RBC) [Ratio] 13.9 % Normal 11.5-15.0 [facility] Comment on above: Performed By: #### Blaine BCA, 80974-0, PINR, 13051-8, 2276-4, 71583-7, 95266-6 #### [facility] ([id number]) [address] [address] [place] [address] Hematocrit (Bld) [Volume fraction] 32.5 % Low 35-47 [facility] Comment on above: Performed By: #### C BCA, 64128-1, PINR, 49223-5, 2276-4, 60347-9, 52053-1 #### [facility] ([id number]) [address], [address] [place] [address] Hemoglobin (Bld) [Mass/Vol] 11.0 g/dL Low 11.7-15.5 [facility] Comment on above: Performed By: #### C BCA, 85189-9, PINR, 37558-6, 2276-4, 53136-9, 61179-6 #### [facility] ([id number]) [address], [facility] [address] [place] [address] Lymphocytes (Bld) [#/Vol] 2.5 10*3/uL Normal 1.0-3.5 [facility] Comment on above: Performed By: #### C ERIK, 56712-7, PINR, 50120-4, 2276-4, 10274-5, 20292-6 #### [facility] ([id number]) [address], [facility] [address] [place] [address] Lymphocytes/100 WBC (Bld) 24.9 % Normal [facility] Comment on above: Performed By: #### C BCA, 04031-6, PINR, 79455-5, 2276-4, 22296-9, 52124-0 #### [facility] ([id number]) [address], [facility] [address] [place] [address] MCH (RBC) [Entitic mass] 27.3 pg Normal 27-34 [facility] Comment on above: Performed By: #### C BCA, 50560-8, PINR, 28328-3, 2276-4, 85871-2, 79436-7 #### [facility] ([id number]) [address], [facility] [address] [place] [address] MCHC (RBC) [Mass/Vol] 33.8 g/dL Normal 32-[address] [facility] Comment on above: Performed By: #### C BCA, 07211-0, PINR, 95009-1, 2276-4, 94004-7, 88603-2 #### [facility] ([id number]) [address], [address] [place] [address] MCV (RBC) [Entitic vol] 81 fL Normal 80-[address] [facility] Comment on above: Performed By: #### C BCA, 51688-9, PINR, 37774-0, 2276-4, 10777-8, 75434-4 #### [facility] ([id number]) [address], [address] [place] [address] Monocytes (Bld) [#/Vol] 0.4 10*3/uL Normal 0-0.9 [facility] Comment on above: Performed By: #### C BCA, 57972-2, PINR, 18224-0, 2276-4, 30867-5, 23058-0 #### [facility] ([id number]) [address], [address] [place] [address] Monocytes/100 WBC (Bld) 4.4 % Normal [facility] Comment on above: Performed By: #### C BCA, 98766-3, PINR, 66885-9, 2276-4, 25645-5, 23081-1 #### [facility] ([id number]) [address], [address] [place] [address] Neutrophils/100 WBC (Bld) 69.8 % Normal [facility] Comment on above: Performed By: #### C BCA, 88526-9, PINR, 63142-8, 2276-4, 45196-4, 65791-0 #### [facility] ([id number]) [address], [address] [place] [address] Platelet mean volume (Bld) [Entitic vol] 8.0 fL Normal 7-12 [facility] Comment on above: Performed By: #### C BCA, 26380-3, PINR, 86502-6, 2276-4, 18945-3, 68688-9 #### [facility] ([id number]) [address], [address] [place] [address] Platelets (Bld) [#/Vol] 247 10*3/uL Normal 150-450 [facility] Comment on above: Performed By: #### C BCA, 82129-0, PINR, 88486-0, 2276-4, 66992-4, 60229-5 #### [facility] ([id number]) [address], [address] [place] [address] RBC COUNT 4.03 X10E12/L Normal 3.80-5.20 [facility] Comment on above: Performed By: #### C BCA, 13000-0, PINR, 73058-7, 2276-4, 47893-2, 51042-3 #### [facility] ([id number]) [address], [address] [place] [address] WBC (Bld) [#/Vol] 9.9 10*3/uL Normal 4.0-11.0 [facility] Comment on above: Performed By: #### C BCA, 27007-7, PINR, 31307-0, 2276-4, 61526-2, 05681-1 #### [facility] ([id number]) [address], [address] [place] [address] CHLAMYDIA/GC PCR, Uon 2024 CHLAMYDIA/GC PCR, U [...] are dependent on adequate specimen collection. Normal [facility] Comment on above: Performed By: #### C BCA, 16791-5, PINR, 19439-5, 2276-4, 18143-7, 42336-2 #### [facility] ([id number]) [address], [address] [place] [address] FERRITINon 08-17-2024 Ferritin [Mass/Vol] 26 ng/mL Normal 11-307 [facility] Comment on above: Performed By: #### C ERIK, 96718-3, PINR, 70714-1, 2276-4, 71985-2, 66889-9 #### [facility] ([id number]) [address] [facility], [address] [place] [address] Fibrinogen Coagulation.deriv ed (PPP) [Mass/Vol]on 08-17-2024 FIBRINOGEN 418 mg/dL Normal 190-480 [facility] Comment on above: Performed By: #### C ERIK, 88929-3, PINR, 23759-1, 2276-4, 81614-4, 26202-1 #### [facility] ([id number]) [address] [facility], [address] [address] HIV 1+2 Ab+HIV1 p24 Ag IA Ql on 08-17-2024 HIV 1 and 2 Ab/Ag Screen Non-Reactive Normal NRCT [facility] Comment on above: Result Comment: NEW [...] results or diagnoses. Performed By: #### C ERIK, 17533-7, PINR, 65278-8, 2276-4, 14063-0, 20900-3 #### [facility] ([id number]) [address], [address] [address] PROTIME AND INRon 08-17-2024 INR Coag (PPP) [Relative time] 0.9 {INR} Normal 0.9-1.2 [facility] Comment on above: Performed By: #### C ERIK, 15205-3, PINR, 96020-2, 2276-4, 28784-4, 47069-3 #### [facility] ([id number]) [address], [address] [place] [address] PT Coag (PPP) [Time] 9.9 s Normal 9.8-13.2 [facility] Comment on above: Performed By: #### C BCA, 65876-9, PINR, 85454-2, 2276-4, 34485-2, 09106-1 #### [facility] ([id number]) [address] [address] T. pallidum IgG+IgM IA Ql (S )on 08-17-2024 Syphilis Total <0.2 Normal 0.0-0.8 [facility] Comment on above: Result Comment: NON REACTIVE No serologic evidence of infection to Treponema pallidum (syphilis). Repeat testing may be considered in patients with suspected acute or primary syphilis in 2 to 4 weeks. Performed By: #### C BCA, 22197-3, PINR, 36087-4, 2276-4, 49743-8, 29058-4 #### [facility] ([id number]) [address] [address] URINALYSISon 08-17-2024 Bilirubin Ql (U) Negative Normal NEG [facility] Comment on above: Performed By: #### U A #### [facility] ([id number]) [address] [address] BLOOD/HGB Small Abnormal NEG [facility] Comment on above: Performed By: #### U A #### [facility] ([id number]) [address] [address] Color (U) YELLOW Normal YELLOW [facility] Comment on above: Performed By: #### U A #### [facility] ([id number]) [address] [address] Glucose Ql (U) Negative Normal NEG [facility] Comment on above: Performed By: #### U A #### [facility] ([id number]) [address] [place] [address] Ketones Ql (U) Negative Normal NEG [facility] Comment on above: Performed By: #### U A #### [facility] ([id number]) [address] [facility], [address] [place] [address] Leukocyte esterase Test strip Ql (U) Negative Normal NEG [facility] Comment on above: Performed By: #### U A #### [facility] ([id number]) [address] [facility], [address] [place] [address] MUCOUS PRESENT Abnormal NONE [facility] Comment on above: Performed By: #### U A #### [facility] ([id number]) [address] [facility], [address] [place] [address] Nitrite Ql (U) Negative Normal NEG [facility] Comment on above: Performed By: #### U A #### [facility] ([id number]) [address] [facility], [address] [place] [address] pH (U) 6.5 [pH] Normal 5.0-8.5 [facility] Comment on above: Performed By: #### U A #### [facility] ([id number]) [address], [address] [place] [address] Protein Ql (U) Negative Normal NEG [facility] Comment on above: Performed By: #### U A #### [facility] ([id number]) [facility] [place] [address] R.B.CELLS 0 /hpf Normal 0-5 [facility] Comment on above: Performed By: #### U A #### [facility] ([id number]) [address], [address] [place] [address] Specific gravity (U) [Rel density] 1.014 Normal 1.003-1.035 [facility] Comment on above: Performed By: #### U A #### [facility] ([id number]) [address], [address] [address] SQUAMOUS EPITHELIUM 1 /hpf Normal 0-5 [facility] Comment on above: Performed By: #### U A #### [facility] ([id number]) [address] [address] TURBIDITY CLEAR Normal CLEAR [facility] Comment on above: Performed By: #### U A #### [facility] ([id number]) [address] [address] Urinalysis dipstick W Reflex Microscopic panel (U) URINE RECEIVED WITHOUT PRESERVATIVE-DELAYS IN TRANSPORT MAY AFFECT RESULTS.INTERPRET WITH CAUTION AND CLINICAL CORRELATION IS RECOMMENDED. Normal [facility] Comment on above: Performed By: #### U A #### [facility] ([id number]) [address], [address] [address] Urobilinogen (U) [Mass/Vol] mg/dL Normal <1.1 [facility] Comment on above: Performed By: #### U A #### [facility] ([id number]) [address] [address] W.B.CELLS 0 /hpf Normal 0-5 [facility] Comment on above: Performed By: #### U A #### [facility] ([id number]) [address] [address] aPTT Coag (PPP) [Time]on aPTT Coag (Bld) [Time] 24 s Low 26-37 Pr [facility] Comment on above: Performed By: #### C BCA, 16637-0, PINR, 26457-0, 2276-4, 63176-8, 92157-1 #### [facility] ([id number]) [address], [address] [place] [address] MR Pelvis WO contraston -1 Radiology Study observation (narrative) [facility] WO contraston 03-0 [facility] MRI PELVIS WITHOUT CONTRASTo n 07-26-2024 [...] MD at 07/27/2024 1:41 PM EST Normal [facility] Urinalysis macro (dipstick) panel (U)on 07-26-2024 Bilirubin, UA Negative Negative - 4(70) +++ mg/dL [facility] Blood, UA Negative Negative - 50 Rodriguez/mcL [facility] Clarity, UA Clear [facility] Color, UA Yellow [facility] Glucose, UA Negative Negative - 1999(110) ++++ mg/dL [facility] Interpretation and review of laboratory results Normal [facility] Ketones, UA Negative Negative - 160(16) ++++ mg/dL [facility] Leukocytes, UA Negative Negative - 500+++ Dg/mcL [facility] Nitrite, UA Negative Negative - Positive [facility] pH, UA 6 5 - 9 [facility] Protein, UA Negative Negative - 1999(20) ++++ mg/dL [facility] Spec Grav, UA 1.03 1 - 1.03 [facility] Urobilinogen, UA 0.2 0.2 - 12 mg/dL [facility] Urinalysis macro (dipstick) panel (U)on 06-28-2024 Bilirubin, UA Negative Negative - 4(70) +++ mg/dL [facility] Blood, UA Negative Negative - 50 Rodriguez/mcL [facility] Clarity, UA Clear [facility] Color, UA Yellow [facility] Glucose, UA Negative Negative - 1999(110) ++++ mg/dL [facility] Interpretation and review of laboratory results Normal [facility] Ketones, UA Negative Negative - 160(16) ++++ mg/dL [facility] Leukocytes, UA Negative Negative - 500+++ Dg/mcL [facility] Nitrite, UA Negative Negative - Positive [facility] pH, UA 7 5 - 9 [facility] Protein, UA Negative Negative - 1999(20) ++++ mg/dL [facility] Spec Grav, UA 1.025 1 - 1.03 [facility] Urobilinogen, UA 0.2 0.2 - 12 mg/dL [facility] US OB LIMITED 1+ FETUSESon 0 06-22-2024 [...] report is generated using voice recognition reporting (Micro[employer]). On occasion [employer] erroneously drops words from the report or [...] [facility] Clarity, UA Clear [facility] Color, UA Yellow [facility] Glucose, UA Negative Negative - 2000(110) ++++ mg/dL [facility] Interpretation and review of laboratory results Normal [facility] Ketones, UA Negative Negative - 160(16) ++++ mg/dL [facility] Leukocytes, UA Negative Negative - 500+++ Dg/mcL [facility] Nitrite, UA Negative Negative - Positive [facility] pH, UA 6 5 - 9 [facility] Protein, UA Negative Negative - 1999(20) ++++ mg/dL [facility] Spec Grav, UA 1.005 1 - 1.03 [facility] Urobilinogen, UA 0.2 0.2 - 12 mg/dL [facility] ALL CBC WITH AUTO DIFFon BASOPHILS ABSOLUTE AUTO 0 [facility] Basophils/100 WBC (Bld) 0.3 % 0.2 - 2.0 % [facility] Eosinophils/100 WBC (Bld) 1.2 % 0.9 - 7.0 % [facility] Erythrocyte distribution width (RBC) [Ratio] 12.8 % 11.0 - 15.0 % [facility] IMMATURE GRANULOCYTES ABS AUTO 0.02 [facility] Immature granulocytes/100 WBC (Bld) 0.3 % 0.0 - 0.5 % [facility] Interpretation and review of laboratory results Abnormal [facility] LYMPHOCYTES ABSOLUTE AUTO 1.9 [facility] Lymphocytes/100 WBC (Bld) 24.2 % 20.5 - 60.0 % [facility] MCH (RBC) [Entitic mass] 28.7 pg 26.7 - 34.0 pg [facility] MCHC (RBC) [Mass/Vol] 33.5 g/dL 29.9 - 35.2 g/dL [facility] MCV (RBC) [Entitic vol] 85.6 fL 81.0 - 99.0 fL [facility] MONOCYTES ABSOLUTE AUTO 0.5 N [facility] Monocytes/100 WBC (Bld) 5.9 % 1.7 - 12.0 % [facility] NEUTROPHILS ABSOLUTE AUTO 5.3 [facility] Neutrophils/100 WBC (Bld) 68.1 % 43.0 - 75.0 % [facility] Platelet mean volume (Bld) [Entitic vol] 9.2 fL Low 9.5 - 13.5 fL [facility] TBH EO # 0.1 [facility] TB PLT [address] [facility] RBC 4.36 [facility] TB WBC 7.8 [facility] CBC without diffon Platelets (Bld) [#/Vol] 233 10*3/uL [facility] Drug Screen, Urineon 024 Amphetamine/Methampheta mine Negative [facility] Barbiturates Negative [facility] Benzodiazepines Negative [facility] Cocaine Metabolite Negative [facility] Ecstasy Negative [facility] Methadone Negative [facility] Opiates Negative [facility] Oxycodone Negative [facility] Phencyclidine Negative [facility] Thc Marijuana, Urine Negative [facility] Free Cell DNAon 2023 Free Cell Dna LOW RISK [facility] HIV 1&2 AB/AG Screen (P24 AG )on 05-21-2024 HIV 1&2 AB/AG Non-Reactive [facility] Hepatitis B surface antigeno n 05-21-2024 Hepatitis B Surface Antigen Non-Reactive [facility] Hepatitis C(HCV) Ab w/ Refle x to PCRon 05-21-2024 HCV Ab Ql (S) Non-Reactive [facility] Laboratory - Hematology and Cell countson 05-21-2024 Hematocrit (Bld) [Volume fraction] 37.3 % [facility] Hemoglobin (Bld) [Mass/Vol] 12.5 g/dL [facility] No Panel Informationon 05-21 [facility] Rubella IGG immune statuson 05-21-2024 Rubella immune IgG 2.97 IMMUNE [facility] Syphilis Total(Unknown Syphi lis Status)on 05-21-2024 Syphilis Non-Reactive [facility] Type and screenon 05-21-2024 Abo/Rh(D) Positive [facility] Urine Cultureon 05-21-2024 Bacteria identified Cx Nom (U) 20,000 colonies/ml mixed bacterial skin contaminants 2 Days PERFORMED BY: [place] [address] PATHOLOGIST [employer]IOFUEL[employer] RESEARCH SCIENTIST HIRO GILLETTE M.D. Normal [facility] Comment on above: Performed By: #### C UU #### [address] HCG ( test) Ql (U)o n 05-03-2024 Interpretation and review of laboratory results Abnormal [facility] Preg Test, Ur Positive Negative [facility] Urinalysis macro (dipstick) panel (U)on 05-03-2024 Bilirubin, UA Negative Negative - 4(70) +++ mg/dL [facility] Blood, UA Negative Negative - 50 Rodriguez/mcL [facility] Clarity, UA Clear [facility] Color, UA Yellow [facility] Glucose, UA Negative Negative - 2000(110) ++++ mg/dL [facility] Interpretation and review of laboratory results Normal [facility] Ketones, UA Negative Negative - 160(16) ++++ mg/dL [facility] Leukocytes, UA Negative Negative - 500+++ Dg/mcL [facility] Nitrite, UA Negative Negative - Positive [facility] pH, UA 6 5 - 9 [facility] Protein, UA Negative Negative - 2000(20) ++++ mg/dL [facility] Spec Grav, UA 1.01 1 - 1.03 [facility] Urobilinogen, UA 1.0 0.2 - 12 mg/dL [facility] PREG QUANT HCGon 024 HCG QUANTITATIVE 63234 mIU/mL [facility] Comment on above: 5-50 0.2-1 WEEK 50-500 1-2 WEEKS 100-5,000 2-3 WEEKS 500-10,000 3-4 WEEKS 1,000-50,000 4-5 WEEKS 10,000-100,000 5-6 WEEKS 15,000-200,000 6-8 WEEKS 10,000-100,000 2-3 MONTHS [facility] PREG QUANT HCGon 024 HCG QUANTITATIVE 48092 mIU/mL [facility] Comment on above: 5-50 0.2-1 WEEK 50-500 1-2 WEEKS 100-5,000 2-3 WEEKS 500-10,000 3-4 WEEKS 1,000-50,000 4-5 WEEKS 10,000-100,000 5-6 WEEKS 15,000-200,000 6-8 WEEKS 10,000-100,000 2-[facility] 024 HCG QUANTITATIVE 6694 mIU/mL [facility] Comment on above: 5-50 0.2-1 WEEK 50-500 1-2 WEEKS 100-5,000 2-3 WEEKS 500-10,000 3-4 WEEKS 1,000-50,000 4-5 WEEKS 10,000-100,000 5-6 WEEKS 15,000-200,000 6-8 WEEKS 10,000-100,000 2-3 [facility] PREG QUANT HCGon 024 HCG QUANTITATIVE 3710 mIU/mL [facility] Comment on above: 5-50 0.2-1 WEEK 50-500 1-2 WEEKS 100-5,000 2-3 WEEKS 500-10,000 3-4 WEEKS 1,000-50,000 4-5 WEEKS 10,000-100,000 5-6 WEEKS 15,000-200,000 6-8 WEEKS 10,000-100,000 2-3 [facility] Alanine aminotransferase [En zymatic activity/volume] in Serum or PlasmaOrdered By: Georgie Calvo on 09-18-2023 ALT [Catalytic activity/Vol] 23 U/L Normal 7-52 [facility] Comment on above: Performed By: #### N ICOTINE QUAL #### [facility] , #### CMP wRFX A1C, EBS LIPID #### [facility] [address] [place] [address] [place] Albumin [Mass/volume] in Ser um or Plasma by Bromocresol green (BCG) dye binding methoOrdered By: Georgie Calvo on 09-18-2023 Albumin BCG dye [Mass/Vol] 4.7 g/dL 3.5-5.7 [facility] Alkaline phosphatase [Enzyma tic activity/volume] in Serum or PlasmaOrdered By: Georgie Calvo on 09-18-2023 ALP [Catalytic activity/Vol] 72 U/L Normal 34-104 [facility] Comment on above: Performed By: #### N ICOTINE QUAL #### [facility] , #### CMP wRFX A1C, EBS LIPID #### [facility] [address] [place] [id number] [place] Aspartate aminotransferase [ Enzymatic activity/volume] in Serum or PlasmaOrdered By: Georgie Calvo on 09-18-2023 AST [Catalytic activity/Vol] 26 U/L Normal 13-39 [facility] Comment on above: Performed By: #### N ICOTINE QUAL #### [facility] , #### CMP wRFX A1C, EBS LIPID #### [facility] [address] Bilirubin.total [Mass/volume ] in Serum or PlasmaOrdered By: Georgie Calvo on 09-18-2023 Bilirubin [Mass/Vol] 0.7 mg/dL Normal 0.3-1.0 [facility] Comment on above: Performed By: #### N ICOTINE QUAL #### [facility] , #### CMP wRFX A1C, EBS LIPID #### [facility] [address] CMP with reflex to A1Con Albumin [Mass/Vol] 4.7 g/dL Normal 3.5-5.7 [facility] Comment on above: Performed By: #### N ICOTINE QUAL #### [facility] , #### CMP wRFX A1C, EBS LIPID #### [facility] [address] [place] [address] GFR/1.73 sq M.predicted MDRD (S/P/Bld) [Vol rate/Area] mL/min/{1.73_m2} Normal [facility] Comment on above: Performed By: #### N ICOTINE QUAL #### [facility] , #### CMP wRFX A1C, EBS LIPID #### [facility] [address] [place] [address] Calcium [Mass/volume] in Ser um or PlasmaOrdered By: Georgie Calvo on 09-18-2023 Calcium [Mass/Vol] 10.1 mg/dL Normal 8.6-10.3 [facility] Comment on above: Performed By: #### N ICOTINE QUAL #### [facility] , #### CMP wRFX A1C, EBS LIPID #### [facility] [address] [place] [address] Carbon dioxide, total [Moles /volume] in Serum or PlasmaOrdered By: Georgie Calvo on 09-18-2023 CO2 [Moles/Vol] 28.5 mmol/L Normal 21.0-31.0 [facility] Comment on above: Performed By: #### N ICOTINE QUAL #### [facility] , #### CMP wRFX A1C, EBS LIPID #### [facility] [address] [place] [address] [place] Chloride [Moles/volume] in S fabiana or PlasmaOrdered By: Georgie Calvo on 09-18-2023 Chloride [Moles/Vol] 101 mmol/L Normal 98-107 [facility] Comment on above: Performed By: #### N ICOTINE QUAL #### [facility] , #### CMP wRFX A1C, EBS LIPID #### [facility] [address] [place] [address] [place] Cholesterol [Mass/volume] in Serum or PlasmaOrdered By: Georgie Calvo on 09-18-2023 Cholesterol [Mass/Vol] 239 mg/dL High 140-200 [facility] Comment on above: Chol less than 200 m g/dl low riskChol 201-239 mg/dl borderline riskChol 240 mg/dl and greater high risk Result Comment: Chol less than 200 mg/dl low risk Chol 201-239 mg/dl borderline risk Chol 240 mg/dl and greater high risk Performed By: #### N ICOTINE QUAL #### [facility] , #### CMP wRFX A1C, EBS LIPID #### [facility] [address] [place] [address] [place] Cholesterol in LDL Calc [Mas s/Vol]Ordered By: Georgie Calvo on 09-18-2023 Cholesterol in LDL [Mass/Vol] 154 mg/dL 0-100 [facility] Comment on above: LDL ATP III CLASSIFI CATIONLDL less than 100 mg/dL OptimalLDL 100-129 mg/dL Near or above optimalLDL 130-159 mg/dL Borderline highLDL 160-189 mg/dL HighLDL greater than 189 mg/dL Very high Cholesterol in VLDL Calc [Ma ss/Vol]Ordered By: Georgie Calvo on 09-18-2023 Cholesterol in VLDL [Mass/Vol] 14 mg/dL [facility] Creatinine [Mass/volume] in Serum or PlasmaOrdered By: Georgie Calvo on 09-18-2023 Creatinine [Mass/Vol] 0.79 mg/dL Normal 0.60-1.20 [facility] Comment on above: Performed By: #### N ICOTINE QUAL #### [facility] , #### CMP wRFX A1C, EBS LIPID #### [facility] [address] Glucose [Mass/volume] in Ser um or PlasmaOrdered By: Georgie Calvo on 09-18-2023 Glucose [Mass/Vol] 78 mg/dL Normal 70-100 [facility] Comment on above: Performed By: #### N ICOTINE QUAL #### [facility] , #### CMP wRFX A1C, EBS LIPID #### [facility] [address] Lipid Profileon 09-18-2023 LDL Cholesterol,Calculated 154 mg/dL High 0-100 [facility] Comment on above: Result Comment: LDL ATP III CLASSIFICATION LDL less than 100 mg/dL Optimal LDL 100-129 mg/dL Near or above optimal LDL 130-159 mg/dL Borderline high LDL 160-189 mg/dL High LDL greater than 189 mg/dL Very high Performed By: #### N ICOTINE QUAL #### [facility] , #### CMP wRFX A1C, EBS LIPID #### [facility] [address] Triglyceride w/Reflex 73 mg/dL Normal 0-149 [facility] Comment on above: Result Comment: TRIG ATP III CLASSIFICATION TRIG less than 150 mg/dL Normal TRIG 150-199 mg/dL Borderline high TRIG 200-500 mg/dL High TRIG greater than 500 mg/dL Very high Standard traceable to the Center for Disease Conrtrol and Prevention (CDC) test method. Performed By: #### N ICOTINE QUAL #### [facility] , #### CMP wRFX A1C, EBS LIPID #### [facility] [address] [place] [address] VLDL CHOLESTEROL 14 mg/dL Normal [facility] Comment on above: Performed By: #### N ICOTINE QUAL #### [facility] , #### CMP wRFX A1C, EBS LIPID #### [facility] [address] [place] [address] Nicotine Metabolite, Qualon 09-18-2023 Nicotine Metabolite Negative Normal Cutoff=25 [facility] Comment on above: Result Comment: Perf ormed at: BN - [facility] [address] [id number] Assistant Pastry Chef: Josh Ortez MD, Phone: [phone] PERFORMED BY: [place] [address] PATHOLOGIST BIOFUELS RESEARCH SCIENTIST ROBERT WEBB M.D. Performed By: #### N ICOTINE QUAL #### [facility] , #### CMP wRFX A1C, EBS LIPID #### [address] No Panel InformationOrdered By: Georgie Calvo on 09-18-2023 Estimated GFR (CKD-EPI) > 60.0 mL/Min [facility] Creatinine Clearance (Chem N/A [facility] Potassium [Moles/volume] in Serum or PlasmaOrdered By: Georgie Calvo on 09-18-2023 Potassium [Moles/Vol] 4.0 mmol/L Normal 3.5-5.1 [facility] Comment on above: Performed By: #### N ICOTINE QUAL #### [facility] , #### CMP wRFX A1C, EBS LIPID #### [facility] [address] [place] [address] Protein [Mass/volume] in Ser um or PlasmaOrdered By: Georgie Calvo on 09-18-2023 Protein [Mass/Vol] 7.1 g/dL Normal 6.4-8.9 [facility] Comment on above: Performed By: #### N ICOTINE QUAL #### [facility] , #### CMP wRFX A1C, EBS LIPID #### [facility] [address] Serum globulin measurement b y calculation (mass/volume)Ordered By: Georgie Calvo on 09-18-2023 Globulin (S) [Mass/Vol] 2.4 g/dL Normal [facility] Comment on above: Performed By: #### N ICOTINE QUAL #### [facility] , #### CMP wRFX A1C, EBS LIPID #### [facility] [address] [place] [address] Serum or plasma albumin/glob ulin mass ratioOrdered By: Georgie Calvo on 09-18-2023 Albumin/Globulin [Mass ratio] 2.0 {ratio} Normal [facility] Comment on above: Performed By: #### N ICOTINE QUAL #### [facility] , #### CMP wRFX A1C, EBS LIPID #### [facility] [address] [place] [address] Serum or plasma anion gap de terminationOrdered By: Georgie Calvo on 09-18-2023 Anion gap [Moles/Vol] 12.5 mmol/L Normal 6.0-15.0 [facility] Comment on above: Performed By: #### N ICOTINE QUAL #### [facility] , #### CMP wRFX A1C, EBS LIPID #### [facility] [address] [place] [address] Serum or plasma high density lipoprotein (HDL) cholesterol measurementOrdered By: Georgie Calvo on 09-18-2023 Cholesterol in HDL [Mass/Vol] 70 mg/dL Normal 23-92 [facility] Comment on above: HDL CHOL ATP-III CLA SSIFICATION Cardiovascular RiskHDL > or equal to 60 mg/dL LOWHDL < 40 mg/dL HIGH Result Comment: HDL CHOL ATP-III CLASSIFICATION Cardiovascular Risk HDL > or equal to 60 mg/dL LOW HDL < 40 mg/dL HIGH Performed By: #### N ICOTINE QUAL #### [facility] , #### CMP wRFX A1C, EBS LIPID #### [facility] [address] Serum or plasma total choles terol/high density lipoprotein (HDL) cholesterol mass ratOrdered By: Georgie Calvo on 09-18-2023 Cholesterol.total/[place] sterol in HDL [Mass ratio] 3.4 {ratio} Normal <5.0 [facility] Comment on above: Result Comment: PERF ORMED BY: [place] [address] PATHOLOGIST B[employer]EL[employer] RESEARCH SCIENTIST ROBERT WEBB M.D. Performed By: #### N ICOTINE QUAL #### [facility] , #### CMP wRFX A1C, EBS LIPID #### [facility] [address] [place] [address] [place] Sodium [Moles/volume] in Ser um or PlasmaOrdered By: Georgie Calvo on 09-18-2023 Sodium [Moles/Vol] 138 mmol/L Normal 136-145 [facility] Comment on above: Performed By: #### N ICOTINE QUAL #### [facility] , #### CMP wRFX A1C, EBS LIPID #### [facility] [address] [place] [address] Triglyceride [Mass/volume] i n Serum or PlasmaOrdered By: Georgie Calvo on 09-18-2023 Triglyceride [Mass/Vol] 73 mg/dL 0-149 [facility] Comment on above: TRIG ATP III CLASSIF ICATIONTRIG less than 150 mg/dL NormalTRIG 150-199 mg/dL Borderline highTRIG 200-500 mg/dL High TRIG greater than 500 mg/dL Very highStandard traceable to the Center for Disease Conrtrol and Prevention (CDC) test method. Urea nitrogen [Mass/volume] in Serum or PlasmaOrdered By: Georgie Calvo on 09-18-2023 Urea nitrogen [Mass/Vol] 14 mg/dL Normal 7-25 [facility] Comment on above: Performed By: #### N ICOTINE QUAL #### [facility] , #### CMP wRFX A1C, EBS LIPID #### [facility] [address] Basophils Auto (Bld) [#/Vol] on 08-05-2023 Basophils (Bld) [#/Vol] 0.0 10 3/uL 0.0-0.1 [facility] Basophils/100 WBC Auto (Bld) on 08-05-2023 Basophils/100 WBC (Bld) 0.2 % 0.2-2.0 [facility] Eosinophils/100 WBC Auto (Bl d)on 08-05-2023 Eosinophils/100 WBC (Bld) 0.1 % 0.9-7.0 [facility] Erythrocyte distribution wid th Auto (RBC) [Ratio]on 08-05-2023 Erythrocyte distribution width (RBC) [Ratio] 13.8 % 11.0-15.0 [facility] Hematocrit Auto (Bld) [Volum e fraction]on 08-05-2023 Hematocrit (Bld) [Volume fraction] 33.5 % 36.0-48.0 [facility] Hemoglobin [Mass/volume] in Bloodon 08-05-2023 Hemoglobin (Bld) [Mass/Vol] 10.7 g/dL 12.0-16.0 [facility] Laboratory - Hematology and Cell countson 08-05-2023 Immature granulocytes/100 WBC (Bld) 0.5 % 0.0-0.5 [facility] Leukocytes [#/volume] correc oneal for nucleated erythrocytes in Blood by Automated counon 08-05-2023 WBC corrected for nucl RBC Auto (Bld) [#/Vol] 19.3 10 3/uL 4.0-11.0 [facility] Lymphocytes Auto (Bld) [#/Vo l]on 08-05-2023 Lymphocytes (Bld) [#/Vol] 1.7 10 3/uL 1.2-3.8 [facility] Lymphocytes/100 WBC Auto (Bl d)on 08-05-2023 Lymphocytes/100 WBC (Bld) 9.0 % 20.5-60.0 [facility] MCH Auto (RBC) [Entitic mass ]on 08-05-2023 MCH (RBC) [Entitic mass] 27.9 pg 26.7-34.0 [facility] MCHC Auto (RBC) [Mass/Vol]on 08-05-2023 MCHC (RBC) [Mass/Vol] 31.9 g/dL 29.9-35.2 [facility] MCV Auto (RBC) [Entitic vol] on 08-05-2023 MCV (RBC) [Entitic vol] 87.2 fL 81.0-99.0 [facility] Monocytes Auto (Bld) [#/Vol] on 08-05-2023 Monocytes (Bld) [#/Vol] 0.5 10 3/uL 0.3-0.8 [facility] Monocytes/100 WBC Auto (Bld) on 08-05-2023 Monocytes/100 WBC (Bld) 2.8 % 1.7-12.0 [facility] Neutrophils Auto (Bld) [#/Vo l]on 08-05-2023 Neutrophils (Bld) [#/Vol] 16.9 10 3/uL 1.4-6.5 [facility] Neutrophils/100 WBC Auto (Bl d)on 08-05-2023 Neutrophils/100 WBC (Bld) 87.4 % 43.0-75.0 [facility] No Panel Informationon 08-04 Eosinophils # (Auto) 0.0 10 3/uL 0.0-0.7 [facility] Immature Granulocyte # (Auto) 0.09 10 3/uL 0.00-0.03 [facility] Platelet mean volume Auto (B ld) [Entitic vol]on 08-05-2023 Platelet mean volume (Bld) [Entitic vol] 10.4 fL 9.5-13.5 [facility] Platelets Auto (Bld) [#/Vol] on 08-05-2023 Platelets (Bld) [#/Vol] 199 10 3/uL 150-450 [facility] RBC Auto (Bld) [#/Vol]on RBC (Bld) [#/Vol] 3.84 10 6/uL 4.20-5.40 [facility] Basophils Auto (Bld) [#/Vol] on 08-04-2023 Basophils (Bld) [#/Vol] 0.0 10 3/uL 0.0-0.1 [facility] Basophils/100 WBC Auto (Bld) on 08-04-2023 Basophils/100 WBC (Bld) 0.2 % 0.2-2.0 [facility] Buprenorphine [Presence] in Urineon 08-04-2023 Buprenorphine Ql (U) Negative NEGATIVE [facility] Comment on above: DRUG CLASS TEST SYST EM CUT-OFF CONCENTRATIONS ARE ASFOLLOWS:AMP (Amphetamine): 500 ng/mLBAR (Barbiturates): 200 ng/mLBZO (Benzodiazepines): 150 ng/mLBUP (Buprenorphine): 10 ng/mLCOC (Cocaine): 150 ng/mLmAMP (Methamphetamine): 500 ng/mLMTD (Methadone): 200 ng/mLOPI (Opiates): 100 ng/mLOXY (Oxycodone): 100 ng/mLPCP (Phencyclidine): 25 ng/mLTHC (Cannabinoids): 50 ng/mLTCA (Trycyclic Antidepressants): 300 ng/mL Eosinophils/100 WBC Auto (Bl d)on 08-04-2023 Eosinophils/100 WBC (Bld) 0.4 % 0.9-7.0 [facility] Erythrocyte distribution wid th Auto (RBC) [Ratio]on 08-04-2023 Erythrocyte distribution width (RBC) [Ratio] 13.7 % 11.0-15.0 [facility] Hematocrit Auto (Bld) [Volum e fraction]on 08-04-2023 Hematocrit (Bld) [Volume fraction] 37.3 % 36.0-48.0 [facility] Hemoglobin [Mass/volume] in Bloodon 08-04-2023 Hemoglobin (Bld) [Mass/Vol] 12.1 g/dL 12.0-16.0 [facility] Laboratory - Drug toxicology on 08-04-2023 Amphetamines Ql (U) Negative NEGATIVE [facility] Benzodiazepines Ql (U) Negative NEGATIVE [facility] Cocaine Ql (U) Negative NEGATIVE [facility] Opiates Ql (U) Negative NEGATIVE [facility] Phencyclidine Ql (U) Negative NEGATIVE [facility] - Hematology and Cell countson 08-04-2023 Immature granulocytes/100 WBC (Bld) 0.3 % 0.0-0.5 [facility] Leukocytes [#/volume] correc oneal for nucleated erythrocytes in Blood by Automated counon 08-04-2023 WBC corrected for nucl RBC Auto (Bld) [#/Vol] 11.9 10 3/uL 4.0-11.0 [facility] Lymphocytes Auto (Bld) [#/Vo l]on 08-04-2023 Lymphocytes (Bld) [#/Vol] 3.4 10 3/uL 1.2-3.8 [facility] Lymphocytes/100 WBC Auto (Bl d)on 08-04-2023 Lymphocytes/100 WBC (Bld) 28.8 % 20.5-60.0 [facility] MCH Auto (RBC) [Entitic mass ]on 08-04-2023 MCH (RBC) [Entitic mass] 27.8 pg 26.7-34.0 [facility] MCHC Auto (RBC) [Mass/Vol]on 08-04-2023 MCHC (RBC) [Mass/Vol] 32.4 g/dL 29.9-35.2 [facility] MCV Auto (RBC) [Entitic vol] on 08-04-2023 MCV (RBC) [Entitic vol] 85.6 fL 81.0-99.0 [facility] Methadone [Presence] in Urin e by Screen methodon 08-04-2023 Methadone Screen Ql (U) Negative NEGATIVE [facility] Monocytes Auto (Bld) [#/Vol] on 08-04-2023 Monocytes (Bld) [#/Vol] 0.5 10 3/uL 0.3-0.8 [facility] Monocytes/100 WBC Auto (Bld) on 08-04-2023 Monocytes/100 WBC (Bld) 4.6 % 1.7-12.0 [facility] Neutrophils Auto (Bld) [#/Vo l]on 08-04-2023 Neutrophils (Bld) [#/Vol] 7.8 10 3/uL 1.4-6.5 [facility] Neutrophils/100 WBC Auto (Bl d)on 08-04-2023 Neutrophils/100 WBC (Bld) 65.7 % 43.0-75.0 [facility] No Panel Informationon 08-03 Eosinophils # (Auto) 0.1 10 3/uL 0.0-0.7 [facility] Immature Granulocyte # (Auto) 0.04 10 3/uL 0.00-0.03 [facility] Urine Barbiturates Screen Negative NEGATIVE [facility] Urine Marijuana (THC) Screen Negative NEGATIVE [facility] Urine Methamphetamines Screen Negative NEGATIVE [facility] Platelet mean volume Auto (B ld) [Entitic vol]on 08-04-2023 Platelet mean volume (Bld) [Entitic vol] 10.0 fL 9.5-13.5 [facility] Platelets Auto (Bld) [#/Vol] on 08-04-2023 Platelets (Bld) [#/Vol] 228 10 3/uL 150-450 [facility] RBC Auto (Bld) [#/Vol]on RBC (Bld) [#/Vol] 4.36 10 6/uL 4.20-5.40 [facility] Urine tricyclic antidepressa nt measurementon 08-04-2023 Tricyclic antidepressants (U) [Mass/Vol] Negative NEGATIVE [facility] oxyCODONE+oxyMORphone [Prese nce] in Urine by Screen methodon 08-04-2023 oxyCODONE+oxyMORphone Screen Ql (U) Negative NEGATIVE [facility] Basophils Auto (Bld) [#/Vol] on 07-21-2023 Basophils (Bld) [#/Vol] 0.0 10 3/uL 0.0-0.1 [facility] Basophils/100 WBC Auto (Bld) on 07-21-2023 Basophils/100 WBC (Bld) 0.3 % 0.2-2.0 [facility] Eosinophils/100 WBC Auto (Bl d)on 07-21-2023 Eosinophils/100 WBC (Bld) 0.6 % 0.9-7.0 [facility] Erythrocyte distribution wid th Auto (RBC) [Ratio]on 07-21-2023 Erythrocyte distribution width (RBC) [Ratio] 13.4 % 11.0-15.0 [facility] Hematocrit Auto (Bld) [Volum e fraction]on 07-21-2023 Hematocrit (Bld) [Volume fraction] 38.1 % 36.0-48.0 [facility] Hemoglobin [Mass/volume] in Bloodon 07-21-2023 Hemoglobin (Bld) [Mass/Vol] 12.3 g/dL 12.0-16.0 [facility] Laboratory - Hematology and Cell countson 07-21-2023 Immature granulocytes/100 WBC (Bld) 0.3 % 0.0-0.5 [facility] Leukocytes [#/volume] correc oneal for nucleated erythrocytes in Blood by Automated counon 07-21-2023 WBC corrected for nucl RBC Auto (Bld) [#/Vol] 10.7 10 3/uL 4.0-11.0 [facility] Lymphocytes Auto (Bld) [#/Vo l]on 07-21-2023 Lymphocytes (Bld) [#/Vol] 2.8 10 3/uL 1.2-3.8 [facility] Lymphocytes/100 WBC Auto (Bl d)on 07-21-2023 Lymphocytes/100 WBC (Bld) 25.8 % 20.5-60.0 [facility] MCH Auto (RBC) [Entitic mass ]on 07-21-2023 MCH (RBC) [Entitic mass] 27.9 pg 26.7-34.0 [facility] MCHC Auto (RBC) [Mass/Vol]on 07-21-2023 MCHC (RBC) [Mass/Vol] 32.3 g/dL 29.9-35.2 [facility] MCV Auto (RBC) [Entitic vol] on 07-21-2023 MCV (RBC) [Entitic vol] 86.4 fL 81.0-99.0 [facility] Monocytes Auto (Bld) [#/Vol] on 07-21-2023 Monocytes (Bld) [#/Vol] 0.4 10 3/uL 0.3-0.8 [facility] Monocytes/100 WBC Auto (Bld) on 07-21-2023 Monocytes/100 WBC (Bld) 4.1 % 1.7-12.0 [facility] Neutrophils Auto (Bld) [#/Vo l]on 07-21-2023 Neutrophils (Bld) [#/Vol] 7.4 10 3/uL 1.4-6.5 [facility] Neutrophils/100 WBC Auto (Bl d)on 07-21-2023 Neutrophils/100 WBC (Bld) 68.9 % 43.0-75.0 [facility] No Panel Informationon 07-21 Eosinophils # (Auto) 0.1 10 3/uL 0.0-0.7 [facility] Immature Granulocyte # (Auto) 0.03 10 3/uL 0.00-0.03 [facility] Platelet mean volume Auto (B ld) [Entitic vol]on 07-21-2023 Platelet mean volume (Bld) [Entitic vol] 9.8 fL 9.5-13.5 [facility] Platelets Auto (Bld) [#/Vol] on 07-21-2023 Platelets (Bld) [#/Vol] 220 10 3/uL 150-450 [facility] RBC Auto (Bld) [#/Vol]on RBC (Bld) [#/Vol] 4.41 10 6/uL 4.20-5.40 [facility] Urinalysis macro (dipstick) panel (U)on 07-08-2023 Bilirubin, UA Negative Negative - 4(70) +++ mg/dL [facility] Blood, UA Negative Negative - 50 Rodriguez/mcL [facility] Clarity, UA Clear [facility] Color, UA Yellow [facility] Glucose, UA Negative Negative - 1999(110) ++++ mg/dL [facility] Interpretation and review of laboratory results Abnormal [facility] Ketones, UA Negative Negative - 160(16) ++++ mg/dL [facility] Leukocytes, UA Positive Negative - 500+++ Dg/mcL [facility] Nitrite, UA Negative Negative - Positive [facility] pH, UA 5.5 5 - 9 [facility] Protein, UA Negative Negative - 1999(20) ++++ mg/dL [facility] Spec Grav, UA 1.015 1 - 1.03 [facility] Urobilinogen, UA 1.0 0.2 - 12 mg/dL [facility] Urine Cultureon 08-07-2022 Urine Culture >100,000 [employer] Other Urine Culture <16 Susceptible [employer] Other Urine Culture <8/4 Susceptible [employer] Other Urine Culture >16 Resistant [employer] Other Urine Culture <4 Susceptible [employer] Other Urine Culture <2 Susceptible [employer] Other Urine Culture <1 Susceptible [employer] Other Urine Culture <0.25 Susceptible [employer] Other Urine Culture <0.5 Susceptible [employer] Other Urine Culture >8 Resistant [employer] Other Urine Culture <32 Susceptible [employer] Other Urine Culture 4 Susceptible [employer] Other Urine Culture >2/38 Resistant [employer] Other SARS-CoV-2 (COVID-19) RNA NA A+probe Ql (Resp)on 02-13-2022 SARS-CoV-2 (COVID-19) RNA CLAY+probe Ql (Unsp spec) Positive [employer] Other SARS-CoV-2 (COVID-19) RNA NA A+probe Ql (Resp)on 02-11-2022 SARS-CoV-2 (COVID-19) RNA CLAY+probe Ql (Unsp spec) Negative [employer] Other SARS-CoV-2 (COVID-19) RNA NA A+probe Ql (Resp)on 01-12-2022 SARS-CoV-2 (COVID-19) RNA CLAY+probe Ql (Unsp spec) Negative [employer] Other XR FOREARM RT 2Von 1 XR [...] by: JACKIE WILLETT Date: 2020-12-16 14:53 Normal [facility] Vital Signs Date Time Vital Sign Value Performing Clinician Facility 08-30-2024 14:04-0400 Body mass index (BMI) [Ratio] 40.74 kg/m2 Natividad Dunham MD Work Phone: [facility] 08-30-2024 14:04-0400 Body weight 125.15 kg Natividad Dunham MD Work Phone: [facility] 08-30-2024 14:04-0400 Diastolic blood pressure 78 mm[Hg] Natividad Dunham MD Work Phone: [facility] 08-30-2024 14:04-0400 Systolic blood pressure 106 mm[Hg] Natividad Dunham MD Work Phone: [facility] 08-17-2024 14:36-0400 Body mass index (BMI) [Ratio] 41.25 kg/m2 Carola Kumari MD Work Phone: [facility] 08-17-2024 14:36-0400 Body weight 123.02 kg Carola Kumari MD Work Phone: [facility] 08-17-2024 14:36-0400 Diastolic blood pressure 68 mm[Hg] Carola Kumari MD Work Phone: [facility] 08-17-2024 14:36-0400 Systolic blood pressure 108 mm[Hg] Carola Kumari MD Work Phone: [facility] 08-12-2024 08:37-0400 Body height 172.7 cm Lucille Mccain MD Work Phone: [facility] 08-12-2024 08:37-0400 Body mass index (BMI) [Ratio] 41.06 kg/m2 Lucille Mccain MD Work Phone: [facility] 08-12-2024 08:37-0400 Body weight 122.47 kg Lucille Mccain MD Work Phone: [facility] 08-12-2024 08:37-0400 Diastolic blood pressure 83 mm[Hg] Lucille Mccain MD Work Phone: [facility] 08-12-2024 08:37-0400 Heart rate 96 /min Lucille Mccain MD Work Phone: [facility] 08-12-2024 08:37-0400 Systolic blood pressure 122 mm[Hg] Lucille Mccain MD Work Phone: [facility] 07-12-2024 14:24-0500 Heart rate 80 /min Jono Mendenhall MD Work Phone: [facility] 07-12-2024 13:10-0500 Body height 172.7 cm Jono Mendenhall MD Work Phone: [facility] 07-12-2024 13:10-0500 Body mass index (BMI) [Ratio] 39.81 kg/m2 Jono Mendenhall MD Work Phone: [facility] 07-12-2024 13:10-0500 Body weight 118.75 kg Jono Mendenhall MD Work Phone: [facility] 07-12-2024 13:10-0500 Diastolic blood pressure 76 mm[Hg] Jono Mendenhall MD Work Phone: [facility] 07-12-2024 13:10-0500 Systolic blood pressure 122 mm[Hg] Jono Mendenhall MD Work Phone: [facility] 06-28-2024 15:39-0500 Body mass index (BMI) [Ratio] 38.36 kg/m2 Jesus Herbert DO Work Phone: [facility] 06-28-2024 15:39-0500 Body weight 116.12 kg Jesus Herbert DO Work Phone: [facility] 06-28-2024 15:39-0500 Diastolic blood pressure 70 mm[Hg] Jesus Herbert DO Work Phone: [facility] 06-28-2024 15:39-0500 Systolic blood pressure 120 mm[Hg] Jesus Herbert DO Work Phone: [facility] 06-10-2024 14:51-0500 Body height 174 cm Jono Mendenhall MD Work Phone: [facility] 05-31-2024 13:33-0500 Body mass index (BMI) [Ratio] 37.31 kg/m2 Jesus Herbert DO Work Phone: [facility] 05-31-2024 13:33-0500 Body weight 112.95 kg Jesus Herbert DO Work Phone: [facility] 05-31-2024 13:33-0500 Diastolic blood pressure 72 mm[Hg] Jesus Herbert DO Work Phone: [facility] 05-31-2024 13:33-0500 Systolic blood pressure 118 mm[Hg] Jesus Herbert DO Work Phone: [facility] 01-13-2024 13:38-0400 Body mass index (BMI) [Ratio] 33.56 kg/m2 Arpita GARDNER Work Phone: [facility] 01-13-2024 13:38-0400 Body weight 101.61 kg Arpita GARDNER Work Phone: [facility] 01-13-2024 13:38-0400 Diastolic blood pressure 74 mm[Hg] Arpita Flippin PA Work Phone: [facility] 01-13-2024 13:38-0400 Systolic blood pressure 116 mm[Hg] Arpita Olvera PA Work Phone: [facility] 07-08-2023 13:27-0500 Body mass index (BMI) [Ratio] 38.51 kg/m2 Arpita May PA Work Phone: [facility] 07-08-2023 13:27-0500 Body weight 116.57 kg Arpita May PA Work Phone: [facility] 07-08-2023 13:27-0500 Diastolic blood pressure 70 mm[Hg] Arpita Flippin PA Work Phone: [facility] 07-08-2023 13:27-0500 Systolic blood pressure 112 mm[Hg] Arpita Olvera PA Work Phone: [facility] 03-01-2022 09:00-0400 Body height 175.26 cm Laxmi Max Other [employer] Other 03-01-2022 09:00-0400 Body mass index (BMI) [Ratio] 33.81 kg/m2 Laxmi Max Other [employer] Other 03-01-2022 09:00-0400 Body temperature 97.9 [degF] Laxmi Max Other [employer] Other 03-01-2022 09:00-0400 Body weight 103.87 kg Laxmi Max Other [employer] Other 03-01-2022 09:00-0400 Diastolic blood pressure 80 mm[Hg] Laxmi Max Other [employer] Other 03-01-2022 09:00-0400 Respiratory rate 20 /min Laxmi Max Other [employer] Other 03-01-2022 09:00-0400 SaO2% (BldA) [Mass fraction] 97 % Laxmi Max Other [employer] Other 03-01-2022 09:00-0400 Systolic blood pressure 118 mm[Hg] Laxmi Max Other [employer] Other 01-18-2022 09:45-0400 Body height 175.26 cm Laxmi Max Other [employer] Other 01-18-2022 09:45-0400 Body mass index (BMI) [Ratio] 32.93 kg/m2 Laxmi Max Other [employer] Other 01-18-2022 09:45-0400 Body temperature 97.3 [degF] Laxmi Max Other [employer] Other 01-18-2022 09:45-0400 Body weight 101.15 kg Laxmi Max Other [employer] Other 01-18-2022 09:45-0400 Diastolic blood pressure 72 mm[Hg] Laxmi Max Other [employer] Other 01-18-2022 09:45-0400 Respiratory rate 20 /min Laxmi Max Other [employer] Other 01-18-2022 09:45-0400 SaO2% (BldA) [Mass fraction] 98 % Laxmi Max Other [employer] Other 01-18-2022 09:45-0400 Systolic blood pressure 112 mm[Hg] Laxmi Max Other [employer] Other 03-05-2021 16:15-0400 Body height 175.26 cm Laxmi Max Other [employer] Other 03-05-2021 16:15-0400 Body mass index (BMI) [Ratio] 35.14 kg/m2 Laxmi Max Other [employer] Other 03-05-2021 16:15-0400 Body weight 107.96 kg Laxmi Max Other [employer] Other 03-05-2021 16:15-0400 Diastolic blood pressure 68 mm[Hg] Laxmi Max Other [employer] Other 03-05-2021 16:15-0400 Respiratory rate 20 /min Laxmi Max Other [employer] Other 03-05-2021 16:15-0400 SaO2% (BldA) [Mass fraction] 98 % Laxmi Max Other [employer] Other 03-05-2021 16:15-0400 Systolic blood pressure 110 mm[Hg] Laxmi Max Other [employer] Other Encounters Encounter Date Encounter Type Care Provider Facility Start: 09-08-2024 End: 09-08-2024 Clinisync Result Encounter Jesus Herbert DO Work Phone: [facility] Unsolicited Start: 09-08-2024 End: 09-08-2024 Clinisync Result Encounter Jesus Herbert DO Work Phone: [facility] Unsolicited Start: 09-07-2024 End: 09-07-2024 Office outpatient new 45 minutes Diya Dodd [employer] Work Phone: [facility] Comment on above: Iron deficiency anem ia secondary to inadequate dietary iron intake (Primary Dx); Placenta accreta, second trimester; Anemia affecting in second trimester; Iron malabsorption Start: 09-07-2024 End: 09-07-2024 ambulatory DIYA DODD [facility] Start: 09-03-2024 End: 09-03-2024 Telephone encounter Diya Dodd [employer] Work Phone: [facility] Start: 09-02-2024 End: 09-02-2024 Telephone encounter Yesica Bunn RN [facility] Start: 08-31-2024 End: 08-31-2024 Telephone encounter Diya Dodd [employer] Work Phone: [facility] Comment on above: Iron deficiency anem ia, unspecified iron deficiency anemia type (Primary Dx) Start: 08-30-2024 End: 08-30-2024 Patient encounter procedure Natividad Dunham MD Work Phone: [facility] Comment on above: GA: 27w3d Start: 08-30-2024 End: 08-30-2024 ambulatory NATIVIDAD DUNHAM [facility] Start: 08-23-2024 End: 08-23-2024 Office outpatient visit 15 minutes Jesus Herbert DO Work Phone: [facility] Comment on above: Second trimester pre gnancy; 26 weeks gestation of Start: 08-23-2024 End: 08-23-2024 ambulatory JESUS HERBERT Not Available Start: 08-23-2024 End: 08-23-2024 Bamboo flowsheet Jesus Herbert DO Work Phone: [facility] Start: 08-23-2024 End: 08-23-2024 Bamboo flowsheet Jesus Herbert DO Work Phone: [facility] Start: 08-20-2024 End: 08-20-2024 Orders Only Bessie Beckford MD Work Phone: [facility] Comment on above: Placenta previa ante in second trimester (Primary Dx); Placenta accreta affecting delivery; Subchorionic hematoma, antepartum, single or unspecified fetus Start: 08-19-2024 End: 08-19-2024 Evaluation and management of inpatient [facility] Start: 08-18-2024 End: 08-18-2024 Evaluation and management of inpatient [facility] Start: 08-17-2024 End: 08-17-2024 [facility] Start: 08-17-2024 End: 08-20-2024 Evaluation and management of inpatient REBEL PEPPER [facility] Start: 08-17-2024 End: 08-17-2024 Initial care visit Carola Kumari MD Work Phone: [facility] Comment on above: GA: 25w4d Start: 08-17-2024 End: 08-17-2024 amb[address]OLA Cisco [facility] Start: 08-12-2024 End: 08-12-2024 Office outpatient visit 25 minutes Gage Regan MD Work Phone: [facility] Comment on above: Placenta previa ante in second trimester (Primary Dx); Placenta accreta affecting delivery Start: 08-12-2024 End: 08-12-2024 ambulatory JESUS Iqbal [facility] Start: 08-06-2024 End: 08-06-2024 Telephone encounter Arpita Pond LPN [facility] Start: 08-02-2024 End: 08-02-2024 Orders Only Not In System Ref Prov [facility] at [facility] Comment on above: Abnormal ultrasonic finding on screening of mother, antepartum (Primary Dx) Start: 07-30-2024 End: 07-30-2024 Telephone encounter Jono Mendenhall MD Work Phone: [facility] Start: 07-26-2024 End: 07-26-2024 Office outpatient [...] OB Start: 07-26-2024 End: 07-26-2024 ambulatory JONO FOWLER [facility] Start: 07-23-2024 End: 07-23-2024 Telephone encounter Yesica Bunn RN [facility] Start: 07-13-2024 End: 07-13-2024 Telephone encounter Yesica Bunn RN [facility] Comment on above: Placental problem af fecting fourth (Primary Dx) Start: 07-12-2024 End: 07-12-2024 Office outpatient new 60 minutes Jono Mendenhall MD Work Phone: [facility] Comment on above: 20 weeks gestation o f (Primary Dx); History of delivery affecting ; Vaginal bleeding in ; Placenta previa antepartum in second trimester; 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 Start: 07-12-2024 End: 07-12-[address] [facility] Start: 06-28-2024 End: 06-28-2024 [...] Mendenhall MD Work Phone: [facility] Start: 06-08-2024 End: 06-08-2024 Telephone encounter Lizabeth Salazar RN [facility] Comment on above: Encounter for anatomic [...] Start: 05-21-2024 End: 05-21-2024 ambulatory Jesus Herbert Facility:[facility] Start: 05-21-2024 End: 05-21-2024 Clinisync Result [...] Start: 01-13-2024 End: 01-13-2024 Bamboo flowsheet Arpita Olvera PA Work Phone: [facility] Start: 01-13-2024 End: 01-13-2024 Bamboo flowsheet Arpita Olvera PA Work Phone: [facility] Start: 01-13-2024 End: 01-13-2024 Online digital e/m svc est pt <7 d 5-10 minutes Arpita Olvera PA Work Phone: [facility] Comment on above: Weight gain; Encounter for weight management Start: 01-13-2024 End: 01-13-2024 ambulatory ARPITA OLVERA Not Available Start: 10-15-2023 End: 10-15-2023 ambulatory ARPITA OLVERA Not Available Start: 09-18-2023 End: 09-18-2023 Departed Referred DO Laxmi Max Work Phone: [facility] [address] Work Phone: Start: 09-18-2023 End: 09-18-2023 ambulatory DO Laxmi M. Max Work Phone: [facility] Work Phone: Start: 09-16-2023 End: 09-16-2023 ambulatory ARPITA OLVERA Not Available Start: 08-05-2023 Non-patient / Non-visit DO Set h Max Work Phone: [facility] Work Phone: Start: 08-04-2023 Non-patient / Non-visit DO Set h Max Work Phone: [facility] Work Phone: Start: 07-21-2023 Non-patient / Non-visit DO Set h Max Work Phone: [facility] Work Phone: Start: 07-08-2023 End: 07-08-2023 flow sheet Arpita GARDNER Work Phone: [facility] Comment on above: Third trimester preg carola Start: 09-10-2022 End: 09-10-2022 ambulatory Susanne Huitron Other [employer] Other Start: 09-10-2022 Telephone encounter Susanne Perez [facility] Start: 08-21-2022 End: 08-21-2022 ambulatory Dontrell Gallegos Other [employer] Other Start: 08-21-2022 Telephone encounter Dontrell Perez [facility] Start: 08-09-2022 End: 08-09-2022 ambulatory Laxmi Max Other [employer] Other Start: 08-09-2022 Telephone encounter Laxmi Max [facility] Start: 08-06-2022 End: 08-06-2022 ambulatory Laxmi Max Other [employer] Other Start: 08-06-2022 Telephone encounter Laxmi Max [facility] Start: 03-26-2022 End: 03-26-2022 ambulatory Laxmi Max Other [employer] Other Start: 03-26-2022 Telephone encounter Laxmi Max [facility] Start: 03-01-2022 End: 03-01-2022 ambulatory Laxmi Max Other [employer] Other Start: 03-01-2022 Encounter for genera l adult medical examination without abnormal findings Laxmi Max [facility] Start: 03-01-2022 Periodic preventive med est patient 18-39 yrs Laxmi Max [facility] Start: 02-13-2022 End: 02-13-2022 ambulatory Georgie Disla Other [employer] Other Start: 02-13-2022 Nursing evaluation o f patient and report Georgie Disla [facility] Start: 02-11-2022 End: 02-11-2022 ambulatory Georgie Disla Other [employer] Other Start: 02-11-2022 Nursing evaluation o f patient and report Georgie Disla [facility] Start: 01-18-2022 End: 01-18-2022 ambulatory Laxmi Max Other [employer] Other Start: 01-18-2022 Office outpatient vi sit 15 minutes Laxmi Max [facility] Start: 01-12-2022 End: 01-12-2022 ambulatory Georgie Disla Other [employer] Other Start: 01-12-2022 Nursing evaluation o f patient and report Georgie Disla [facility] Start: 03-05-2021 Encounter for genera l adult medical examination without abnormal findings Laxmi Max [facility] Start: 03-05-2021 Periodic preventive med est patient 18-39 yrs Laxmi Max [facility] Start: 12-16-2020 End: 12-16-[address] [place] [facility] [place] Facility: Procedures Date Procedure Procedure Detail Performing Clinician Start: 09-08-2024 US OB BPP W NON-STRESS Jesus Herbert DO Work Phone: Start: 08-30-2024 Adult depression screening assessment Natividad Dunham MD Work Phone: Start: 08-23-2024 Urnls dip stick/tabl et rgnt non-auto w/o micrscp Jesus Herbert DO Work Phone: Start: 08-17-2024 H/O: section History of 3 sections Carola Kumari MD Work Phone: Start: 08-17-2024 Adult depression screening assessment Carola Kumari MD Work Phone: Start: 07-26-2024 Urnls dip [...] Herbert DO Work Phone: Start: 08-07-2022 Piperacillin/tazobactam L[employer]mi Max Other H/O: section History of delivery affecting Jono Mendenhall MD Work Phone: H/O: section History of 3 sections Natividad Dunham MD Work Phone: Plan of Treatment Date Care Activity Detail Author Start: 12-16-2030 DTaP,Tdap and Td Vac cines (7 - Tdap) DTaP,Tdap and Td Vaccines (7 - Tdap) [facility] Start: 01-04-2028 Screening for malign ant neoplasm of cervix HPV/[facility] [facility] Start: 01-03-2026 Screening for malign ant neoplasm of cervix [facility] Start: 08-30-2025 Adult BMI Screening Adult BMI Screen ing [facility] Start: 08-30-2025 Depression Screening Depression Scre [facility] Start: 08-30-2025 Tobacco Screening Tobacco Screening [facility] Start: 08-20-2025 Tobacco Screening Tobacco Screening [facility] Start: 08-17-2025 Adult BMI Screening Adult BMI Screen ing [facility] Start: 08-17-2025 [facility] Start: 08-17-2025 Tobacco Screening Tobacco Screening [facility] Start: 08-12-2025 Adult BMI Screening Adult BMI Screen ing [facility] Start: 07-13-2025 End: 07-13-2025 US MFM with or without consult US MFM with or without consult Imaging Routine Placental problem affecting fourth Expected: 07/13/2025 (Approximate), Expires: 07/13/2025 [facility] Work Phone: Comment on above: Expected: 07/13/2025 (Approximate), Expires: 07/13/2025 Start: 07-12-2025 Adult BMI Screening Adult BMI Screen ing [facility] Start: 07-12-2025 Tobacco Screening Tobacco Screening [facility] Start: 01-24-2025 Influenza vaccination [facility] Start: 10-19-2024 End: 10-19-2024 Admission to same day surgery center 10/19/2024 9:00 AM EDT - 10/19/2024 1:30 PM EDT Surgery [address] [phone] Minal Perez, DO [address] [place] [address] HYSTERECTOMY [01305 (CPT )] [facility] Comment on above: HYSTERECTO MY [74986 (CPT )] Start: 10-19-2024 End: 10-19-2024 delivery only HYSTERECTOMY PLACENTA ACCRETA 10/19/2024 9:00 AM EDT [place] [facility] Start: 10-19-2024 Subsequent hospital visit by physician 10/19/2024 9:00 AM EDT Hospital Encounter [facility] Surgery [address] [place] [phone] Minal Perez, DO [address] [place] [address] [facility] Start: 09-17-2024 End: 09-17-2024 Patient encounter procedure 09/17/2024 11:30 AM EDT Office Visit Maternal- Medicine at [facility] [address] [place] [phone] Jono Mendenhall MD [address] [place] [address] [facility] at [facility] Start: 09-17-2024 End: 09-17-2024 Patient encounter procedure [facility] Start: 09-10-2024 End: 11-17-2024 US MFM with or without consult US MFM with or without consult Imaging Routine Placenta accreta affecting delivery Expected: 09/10/2024, Expires: 11/17/2024 [facility] Work Phone: Comment on above: Expected: 09/10/2024 , Expires: 11/17/2024 Start: 09-08-2024 End: 09-08-2024 Patient encounter procedure 09/08/2024 3:40 PM EDT Routine [facility] [address] [place] [address] Jesus Godinez, [address], [facility] Start: 09-07-2024 End: 09-07-2024 Telemedicine consultation with patient 09/07/2024 10:00 AM EDT Telemedicine [facility] [address] [place] [address] Diya Dodd, STRAP SEWER-MAKE UP ARTIST [address] [place] [address] [facility] Start: 09-06-2024 End: 09-06-2024 Patient encounter procedure 09/06/2024 3:30 PM EDT Routine [facility] [address] [place] [address] Jesus Godinez, DO [address] [place] [address] [facility] Start: 08-30-2024 End: 08-30-2024 Patient encounter procedure 08/30/2024 2:15 PM EDT Routine [facility] [address] [facility] [place] [phone] Natividad Dunham MD [address] [facility] Women's [place] [phone] [facility] Start: 08-25-2024 End: 08-25-2024 Patient encounter procedure 08/25/2024 3:00 PM EDT Routine [facility] [address] [place] [phone] Jesus Godinez, DO [address] [place] [address] [facility] Start: 08-23-2024 End: 08-23-2024 Patient encounter procedure 08/23/2024 3:40 PM EDT Routine [facility] [address] [place] [phone] Jesus Godinez, DO [address] [place] [address] Arrived [facility] Comment on above: Arrived Start: 08-20-2024 End: 11-20-2024 US MFM with or without consult US MFM with or without consult Imaging Routine Placenta previa antepartum in second trimester Placenta accreta affecting delivery Subchorionic hematoma, antepartum, single or unspecified fetus Expected: 08/20/2024, Expires: 11/20/2024 [facility] Comment on above: Expected: 08/20/2024 , Expires: 11/20/2024 Start: 08-17-2024 End: 08-17-2024 ambulatory 08/17/2024 3:00 PM EDT Initial [facility] [address] [place] [phone] Carola Kumari MD [address] [facility], [address] [place] [phone] [facility] Start: 08-17-2024 End: 11-17-2024 US MFM with or without consult US MFM with or without consult Imaging Routine Placenta accreta affecting delivery Expected: 08/17/2024, Expires: 11/17/2024 [facility] Comment on above: Expected: 08/17/2024 , Expires: 11/17/2024 Start: 08-12-2024 End: 08-12-2024 Patient encounter procedure [facility] Start: 08-12-2024 End: 08-12-2024 Patient encounter procedure 08/12/2024 8:30 AM EDT Appointment [facility] US Imaging [address] [place] [phone] [facility] Imaging Start: 07-26-2024 End: 07-26-2024 Patient encounter procedure [facility] Comment on above: Arrived Start: 07-26-2024 End: 07-26-2025 CBC panel - Blood by Automated count CBC Lab Routine Diabetes mellitus screening Expected: 07/26/2024 (Approximate), Expires: 07/26/2025 [facility] Work Phone: Comment on above: Expected: 07/26/2024 (Approximate), Expires: 07/26/2025 Start: 07-26-2024 End: 07-26-2025 Measurement of glucose 1 hour after glucose challenge for glucose tolerance test Glucose tolerance, 1 hour Lab Routine Diabetes mellitus screening Expected: 07/26/2024 (Approximate), Expires: 07/26/2025 [facility] Comment on above: Expected: 07/26/2024 (Approximate), Expires: 07/26/2025 Start: 07-12-2024 End: 07-12-2024 Patient encounter procedure [facility] US Imaging Start: 07-09-2024 End: 06-08-2025 US [facility] with or without consult US [facility] with or without consult Imaging Routine Encounter for anatomic survey Expected: 07/09/2024 (Approximate), Expires: [facility]08/[facility]25 [facility] Comment on above: Expected: 07/09/2024 [...] EST Ancillary Procedure [facility] [address] [facility] [place] [address] [facility] Start: 05-31-2024 End: [...] AM EST Initial [facility] [address] [facility] [place] [phone] [facility] Start: 05-07-2024 End: 05-07-2024 Professional / ancillary services management 05/07/2024 10:00 AM EST Ancillary Procedure [facility] [address] [facility] [place] [phone] [facility] Start: 05-03-2024 End: 05-03-2025 ABO/Rh ABO/Rh Lab Routine Missed menses , unspecified gestational age Expected: 05/03/2024 (Approximate), Expires: 05/03/2025 [facility] Comment on above: Expected: 05/03/2024 (Approximate), Expires: 05/03/2025 Start: 05-03-2024 End: 05-03-2025 Blood type and Indirect antibody screen panel - Blood Type and screen Lab Routine Missed menses , unspecified gestational age Expected: 05/03/2024 (Approximate), Expires: 05/03/2025 [facility] Work Phone: Comment on above: [...] AM EST Initial [facility] [address] [facility] [place] [address] [facility] Start: 05-03-2024 End: 05-03-2024 Professional / ancillary services management 05/03/2024 10:30 AM EST Ancillary Procedure [facility] [address] [facility] [place] [address] [facility] Start: 01-25-2024 COVID-19 Vaccine () COVID-19 Vaccine () [facility] Start: 01-25-2024 Influenza vaccination [facility] Start: 09-18-2023 [facility] Start: 01-24-2023 Influenza vaccination Influenza Vacc ine (#1) [facility] Start: 2015 Screening for malign ant neoplasm of cervix Pap Smear [facility] Start: 2013 DTaP,Tdap and Td Vac cines (1 - Tdap) DTaP,Tdap and Td Vaccines (1 - Tdap) [facility] Start: 02-27-2012 Adult BMI Follow Up Plan Adult BMI Follow Up Plan [facility] Start: 02-27-2012 Adult BMI Screening Adult BMI Screen ing [facility] Start: 2006 Depression Screening Depression Scre ening [facility] Start: 2006 Tobacco Screening Tobacco Screening [facility] Bacteria identified in Urine by Culture Urine culture Microbiology Routine Missed menses Ordered: 05/03/2024 [facility] Comment on above: Ordered: 05/03/2024 CBC W Auto Different ial panel - Blood CBC and differential Lab Routine Missed menses , unspecified gestational age Ordered: 05/03/2024 [facility] Comment on above: Ordered: [...] antepartum 1 Occurrences starting 08/17/2024 until 08/17/2025 [facility] Work Phone: Comment on above: 1 Occurrences starti ng 08/17/2024 until 08/17/2025 Chlamydia/Gonorrhoea e by PCR, Urine Chlamydia/Gonorrhoeae by PCR, Urine Microbiology Routine care, antepartum 08/17/2024 6:31 PM EDT [facility] End: 08-29-2025 Cyanocobalamin vitamin b-12 Vitamin B12 Lab Routine Anemia affecting in second trimester 1 Occurrences starting 08/30/2024 until 08/29/2025 [facility] Work Phone: Comment on above: 1 Occurrences starti ng 08/30/2024 until 08/29/2025 End: 08-17-2025 Ferritin [Mass/volume] in Serum or Plasma Ferritin Lab Routine care, antepartum 1 Occurrences starting 08/17/2024 until 08/17/2025 [facility] Comment on above: 1 Occurrences starti ng 08/17/2024 until 08/17/2025 End: 09-07-2025 Ferritin [Mass/volume] in Serum or Plasma Ferritin Lab Routine Anemia affecting in second trimester Iron deficiency anemia secondary to inadequate dietary iron intake 4 weeks for 3 Occurrences starting 09/07/2024 until 09/07/2025 [facility] Comment on above: 4 weeks for 3 Occurr ences starting 09/07/2024 until 09/07/2025 End: 11-20-2024 nonstress test - Maternal Medicine nonstress test - Maternal Medicine OB Routine Placenta previa antepartum in second trimester Placenta accreta affecting delivery Subchorionic hematoma, antepartum, single or unspecified fetus Per Treatment Plan for 9 Occurrences starting 08/20/2024 until 11/20/2024 [facility] Work Phone: Comment on above: Per Treatment Plan f or 9 Occurrences starting 08/20/2024 until 11/20/2024 End: 08-29-2025 Folate Folate Lab Routine Anemia affecting in second trimester 1 Occurrences starting 08/30/2024 until 08/29/2025 [facility] Comment on above: 1 Occurrences starti ng 08/30/2024 until 08/29/2025 End: 08-17-2025 Glucose 1h post 50g load Glucose 1h post 50g load Lab Routine care, antepartum 1 Occurrences starting 08/17/2024 until 08/17/2025 [facility] Comment on above: 1 Occurrences starti ng 08/17/2024 until 08/17/2025 Hemoglobin A1c/Hemoglobin.total in Blood Hemoglobin A1c Lab Routine Missed menses , unspecified gestational age Ordered: 05/03/2024 [facility] Comment on above: Ordered: 05/03/2024 Hepatitis B virus walden rface Ag [Presence] in Serum or Plasma by Immunoassay Hepatitis B surface antigen Lab Routine Missed menses , unspecified gestational age Ordered: 05/03/2024 [facility] Comment on above: Ordered: 05/03/2024 Hepatitis C virus Ab [Presence] in Serum or Plasma by Immunoassay Hepatitis C antibody Lab Routine Missed menses , unspecified gestational age Ordered: 05/03/2024 [facility] Comment on above: Ordered: 05/03/2024 End: 08-17-2025 HIV 1&2 AB/AG Screen (P24 AG) HIV 1&2 AB/AG Screen (P24 AG) Lab Routine care, antepartum 1 Occurrences starting 08/17/2024 until 08/17/2025 [facility] Comment on above: 1 Occurrences starti ng 08/17/2024 until 08/17/2025 HIV-1/HIV-2 antigen/antibody combination immunoassay HIV-1 and HIV-2 antibodies Lab Routine Missed menses , unspecified gestational age Ordered: 05/03/2024 [facility] Comment on above: Ordered: 05/03/2024 End: 08-31-2025 Iron and TIBC Iron and TIBC Lab STAT Iron deficiency anemia, unspecified iron deficiency anemia type 1 Occurrences starting 08/31/2024 until 08/31/2025 [employer] Phone: Comment on above: 1 Occurrences starti ng 08/31/2024 until 08/31/2025 End: 09-07-2025 Iron and TIBC Iron and TIBC Lab Routine Anemia affecting in second trimester Iron deficiency anemia secondary to inadequate dietary iron intake 4 weeks for 3 Occurrences starting 09/07/2024 until 09/07/2025 [facility] Comment on above: 4 weeks for 3 Occurr ences starting 09/07/2024 until 09/07/2025 Reagin Ab [Presence] in Serum by RPR RPR Lab Routine Missed menses , unspecified gestational age Ordered: 05/03/2024 [facility] Comment on above: Ordered: 05/03/2024 Rubella antibody, IgG Rubella an tibody, IgG Lab Routine Missed menses , unspecified gestational age Ordered: 05/03/2024 [facility] Comment on above: Ordered: 05/03/2024 End: 08-17-2025 Syphilis Total(Unknown Syphilis Status) Syphilis Total(Unknown Syphilis Status) Lab Routine care, antepartum 1 Occurrences starting 08/17/2024 until 08/17/2025 [facility] Comment on above: 1 Occurrences starti ng 08/17/2024 until 08/17/2025 Immunizations Immunization Date Immunization Notes Care Provider [facility] 08-18-2024 RHO(D) immune globulin- IV or IM Bessie Beckford MD Work Phone: [facility] 09-18-2023 influenza virus vaccine, unspecified formulation Arpita GARDNER Work Phone: [facility] 03-20-2021 COVID-19 mRNA-1273 (Moderna) DO L[employer]mi Max Work Phone: [facility] 02-27-2021 influenza, seasonal, injectable [facility] [employer] Other [facility] 06-20-2020 COVID-19 mRNA-1273 (Moderna) DO [employer] Max Work Phone: [facility] 05-23-2020 COVID-19 mRNA-1273 (Moderna) DO [employer] Work Phone: [facility] 02-29-2020 influenza, injectable, quadrivalent, contains preservative [employer] Other [employer] Other 02-29-2020 influenza, injectable, quadrivalent, preservative free DO L[employer]mi Max Work Phone: [facility] 02-29-2020 influenza virus vaccine, unspecified formulation Arpita GARDNER Work Phone: [facility] 02-07-2020 influenza, injectable, quadrivalent, contains preservative Patient Objection L[employer]mi Max Other [employer] Other NEGATED: Highlighted row has not occurred!02-07-2020 influenza, injectable, quadrivalent, contains preservative Patient Objection Georgie Nighat Other [employer] Other Payers Date Payer Category Payer Medicaid HMO [id number] 2023 Self-pay [id number] 2023 Medicaid [id number] 2023 Private Health Insurance [employer] [place] [employer] [id number] 2023 Unknown [id number] [address] [employer] PL[employer] [id number] 2022-Present [address] [place] [address] [id number] 1994 Unknown [id number] 2.16.840.1.396797.3.579.2. 593 1994 Unknown [id number] 2.16.840.1.429901.3.579.2. 1279 1994 Unknown [id number] 2.16.840.1.602852.3.579.2. 1259 1994 Unknown [id number] 2.16.840.1.536983.3.579.2. 1259 1994 Unknown [id number] 2.16.840.1.346563.3.579.2. 1259 1994 Unknown [id number] 2.16.840.1.260063.3.579.2. 1259 1994 Unknown [id number] 2.16.840.1.739092.3.579.2. 1259 1994 Unknown [id number] 2.16.840.1.978707.3.579.2. 1259 1994 Unknown [id number] 2.16.840.1.419599.3.579.2. 1259 1994 Unknown [id number] 2.16.840.1.342613.3.579.2. 1259 1994 Unknown [id number] 2.16.840.1.139255.3.579.2. 1259 1994 Unknown [id number] 2.16.840.1.958348.3.579.2. 1286 1994 Unknown [id number] 2.16.840.1.224738.3.579.2. 1286 1994 Unknown [id number] 2.16.840.1.086180.3.579.2. 1286 1994 Unknown [id number] 2.16.840.1.638126.3.579.2. 1286 1994 Unknown [id number] 2.16.840.1.897842.3.579.2. 1286 1994 Unknown [id number] 2.16.840.1.123313.3.579.2. 1286 1994 Unknown [id number] 2.16.840.1.159692.3.579.2. 1286 1994 Unknown [id number] 2.16.840.1.386044.3.579.2. 1286 1994 Unknown [id number] 2.16.840.1.220314.3.579.2. 1286 1994 Unknown [id number] 2.16.840.1.094313.3.579.2. 1286 1994 Unknown [id number] 2.16.840.1.170411.3.579.2. 1286 1959 Unknown [id number] Unknown [id number] 2.16.840.1.565678.3.579.2. 531 Unknown [id number] 2.16.840.1.841979.3.579.2. 531 Social History Date Type Detail Facility Unknown if ever smoked [employer] Other Start: 12-03-2022 End: 10-15-2023 Sex Assigned At [place] Other Start: 12-01-2022 End: 06-10-2024 Tobacco smoking status NHIS Never smoked tobacco [facility] Start: 07-08-2023 End: 08-31-2024 Alcohol intake Current drinker of alcohol (finding) [facility] Start: 12-03-2022 End: 10-15-2023 History of Social function [facility] Start: 12-01-2022 Alcohol Comment occasional [facility] Start: 11-22-2022 [facility] Start: 1995 Sex Assigned At Not on file N [facility] Start: 1994 Sex Assigned At Female F [facility] Tobacco smoking status NHIS Tobacco smoking consumption unknown [facility] Start: 06-04-2024 Sex Female (finding) [facility] Start: 06-10-2024 End: 08-30-2024 Alcoholic beverage intake Ex-drinker (finding) [facility] Within the past 12 months we worried whether our food would run out before we got money to buy more. Never True [facility] The thought of harming myself has occurred to me Never [facility] Clinical Notes 03-05-2021 to 09-07-2024 PRASANNA Patton - 09/07/2024 10:00 AM EDTPatient InstructionsAttachmentsTelephone Encounter - [facility] - 09/03/2024 9:52 AM EDTTelephone Encounter - [facility] - 09/03/2024 9:52 AM EDT Note Date & Type Note Facility 09-07-2024 History of Presen t illness Narrative Benign Hematology/ Patient Blood Management Consultation: Dr. Nj Dodd OPTOMETRIST Malgorzata GARDNER Patient ID: Griselda [place], 29 y.o. female Requested by: Nadia Ellis MD PCP: No primary care provider on file. : 1995 REASON FOR CONSULTATION: Anemia in CHIEF COMPLAINT: Low iron HISTORY OF PRESENT ILLNESS: Griselda Macedo is a 29 y.o. female with history [...] mg total) by mouth in the morning. vit,[id number] (PRENATABS FA) 29-1 mg tablet Take 1 [...] the 3rd trimester. Her due date is 10/19/[id number]. She was referred here by her OBGYN [...] for venofer 200 mg x 5 at [facility] - continue vitamin daily -continue oral iron -check labs on 10/07 before on 10/19- if ferritin is <30 would recommend more iv iron while in for delivery - recheck labs 6-8 weeks post delivery to monitor for iron deficiency -Delivery at [facility] - Video Visit via Real-time Synchronous Audiovisual Provider Location: [facility] [address] [place] [address] Patient Location: Patient's home Video Visit [...] that there are some limitations compared to [id number] evaluations. The patient consented to the presence of additional virtual and/or in-person participants. We elected to proceed. Diya Dodd NP Benign Hematology/ Patient Blood Management/Bloodless Medicine Office [phone] PRASANNA Patton 09/07/24 1021 documented in this encounter [facility] 09-07-2024 Instructions PRASANNA Patton - 09/07/2024 10:00 AM EDT Images from the original note were not included. The following attachments cannot be sent through Care Everywhere.Iron Sucrose? ADULT ([place])documented in this encounter [facility] 09-03-2024 Miscellaneous Notes Spoke with pt to confirm appt with diya on 09/07 at 10 am via my chart video documented in this encounter [facility] 09-03-2024 Telephone encounter Note Spoke with pt to confirm appt with diya on 09/07 at 10 am via my chart video [facility] 09-02-2024 Miscellaneous Notes Received call from LOW Baneg[place] at [facility] seeking clearance from Dr. Mccain for patient to have testing locally at [facility]. Ok per Dr. Mccain. Returned call to [facility] to regarding recommendations. documented in this encounter [facility] 09-02-2024 Telephone encounter Note Received call from LOW Banegas at [facility] seeking clearance from Dr. Mccain for patient to have testing locally at [facility]. Ok per Dr. Mccain. Returned call to [facility] to regarding recommendations. [facility] 08-31-2024 History of Presen t illness Narrative Lab orders placed for up coming appointment. documented in this encounter [facility] 08-31-2024 Miscellaneous Notes Called pt to schedule referral appt with diya on 09/07 at 10 am via my chart video, labs done except iron tibc documented in this encounter [facility] 08-31-2024 Telephone encounter Note Called pt to schedule referral appt with diya on 09/07 at 10 am via my chart video, labs done except iron tibc [facility] 08-30-2024 History of Presen t illness Narrative [facility] High Risk Obstetrics Visit Return OB CC: Scheduled OB Visit None Problem List Genitourinary Placenta accreta, second trimester Overview 07/26/24 [facility] Myometrial thinning with focal outpouching/bulging along [...] starting at 28 weeks weekly NST at [facility] - C-Hyst @ 34 weeks with cell saver Iron Defiency Anemia - Ferritin 26 - continue oral iron therapy Antepartum care - 3rd trimester labs competed while inpatient Anxiety/Depression - Reports mood is well controlled at this time without medication COVID Vaccine status: Vaccinated Vaccine recommended and education provided. RTC 2 weeks via [facility] Note to patient: The Cures Act makes medical notes like these [...] Weekly testing -- plans to do at [facility] Serial growth scans scheduled for 09/17/24 Sign hysterectomy form --previously completed. Desires sterilization. Pelvic rest Hb 11 on 08/17/24 in patient with accreta Ferritin 08/17/24 26 B12, folate Blood management referral placed Anxiety/depression Stable and doing well RTC 2 weeks via [facility] Note to patient: The Cures Act makes medical notes like these [...] hemolyzed blood-moderate, Bilirubin-small, documented in this encounter [facility] 08-23-2024 History of Presen t illness Narrative Reason for Appointment: Patient ID: Griselda Macedo is a 29 y.o. female who [...] studies 11/18/2022 Abnormal uterine bleeding 11/18/2022 Depression ([facility]/HCC) 11/18/2022 Generalized anxiety disorder (CMS/HCC) 11/18/2022 Malodorous [...] nursing note reviewed. Exam conducted with a concrete products machine operator present. Vitals: Estimated body mass index is [...] will begin NST's at 26 weeks at [facility]. She has been given precautions including bleeding and decreased movement. Orders Placed This Encounter Procedures POCT urinalysis dipstick manually resulted Follow Up: Patient is to return to office in 4 week for routine OB appointment. Documented by Madiha Valdez NP on behalf of: Jesus Godinez DO documented in this encounter [facility] 08-17-2024 History of Presen t illness Narrative [facility] Initial High Risk Obstetrics Visit Initial [facility] Visit Griselda Mcaedo is a 29 y.o. female at 25w4d [...] mg total) by mouth in the morning. vit,[id number]-[id number]-jeuzn (PRENATABS FA) 29-1 mg tablet Take 1 [...] degree relative) no Social History Lives with Jimmie, kaycee, children FOB is involved. Employed: [employer] 3hrs/week Education level: some college Safe in [...] after completion of ANCS S/p MRI at [facility] Plan to repeat cbc and ferritin at [...] RTC weeks HROB Note to patient: The Cures Act makes medical notes like these [...] the clinical opinion of the practitioner. Urine tgl-Ovjff-lyoex Pt seen today for HROB initial @25.4 [...] transfer of care at 25w 4d from [facility] for placenta previa, placenta accreta spectrum and [...] wks Pt verbalized understanding of above. Darío Kumari mD documented in this encounter [facility] 08-12-2024 History of Presen t illness [...] accreta spectrum. HISTORY OF PRESENT ILLNESS: Griselda Macedo is a pleasant 29 y.o. G for [...] mouth in the morning., Disp: , Rfl: vit,[id number]-[id number] (PRENATABS FA) 29-1 mg tablet, Take 1 [...] 2. [facility] and delivery at 34 weeks gestation 3. Patient will be scheduled for hysterectomy at 34 weeks gestation after completion of corticosteroids. 4. Repeat CBC and ferritin levels at 28 weeks gestation InCase of anemia patient is a candidate for iron iron 5. Continue serial growth ultrasounds every 4 weeks at [facility] 6. For surgical planning please see detailed MRI report from [facility]. Thank you for allowing me to participate in Griselda ayala. If there are any questions, please do not hesitate to call me. Sincerely, LUCILLE MCCAIN MD documented in this encounter [facility] 08-06-2024 Miscellaneous Notes Left voicemail for patient notifying that Dr Mendenhall is okay with patient keeping her USN and Dr Mccain appointment on 08/12/24. documented in this encounter [facility] 08-06-2024 Telephone encounter Note Left voicemail for patient notifying that Dr Mendenhall is okay with patient keeping her USN and Dr Mccain appointment on 08/12/24. [facility] 07-30-2024 Miscellaneous Notes Patient called to review MRI report from [facility]. Impression: Placenta accreta spectrum involving the left [...] [facility] delivery at [facility]. Delivery at 34 weeks gestation or sooner if clinically indicated. Delivery via hysterectomy. Jono Mendenhall MD Maternal- Medicine [address] [place] [address] documented in this encounter [facility] 07-30-2024 Telephone encounter Note Patient called to review MRI report from [facility]. Impression: Placenta accreta spectrum involving the left [...] [facility] delivery at [facility]. Delivery at 34 weeks gestation or sooner if clinically indicated. Delivery via hysterectomy. Jono Mendenhall MD Maternal- Medicine [address] [place] [address] [facility] Work Phone: 07-26-2024 History of Presen t illness Narrative Reason for Appointment: Patient ID: Griselda Macedo is a 29 y.o. female who [...] nursing note reviewed. Exam conducted with a concrete products machine operator present. Vitals: Estimated body mass index is [...] Jesus Godinez DO documented in this encounter [facility] 07-23-2024 Miscellaneous Notes Called and LVM for Madiha at [facility]. Requested return call to confirm patient has been scheduled for MRI. documented in this encounter [facility] 07-23-2024 Telephone encounter Note Called and LVM for Madiha at [facility]. Requested return call to confirm patient has been scheduled for MRI. [facility] 07-13-2024 Miscellaneous Notes Child Custody Evaluator faxed referral and patient's ACOG, ultrasound report, and consult note to [facility]. Called and LVM for lucy Blount navigator at to confirm no additional information is needed. documented in this encounter [facility] 07-13-2024 Telephone encounter Note Child Custody Evaluator faxed referral and patient's ACOG, ultrasound report, and consult note to [facility]. Called and LVM for Mine manager wound care at to confirm no additional information is needed. [facility] History of Presen t illness Narrative REASON FOR CONSULTATION: subchorionic hematoma and vaginal bleeding, history of delivery x3 HISTORY OF PRESENT ILLNESS: Griselda Macedo is a pleasant 29 y.o. at 20w3d [...] Aneuploidy screening: low risk cell free DNA ([place]) Carrier screening: I have reviewed the pertinent [...] mouth in the morning., Disp: , Rfl: vit,bcte38-qirs-xqeyg (PRENATABS FA) 29-1 mg tablet, Take 1 [...] TESTS AND ULTRASOUND REPORTS: Referral records and epic chart were reviewed Pertinent Ultrasound findings are see formal ultrasound report. PHYSICAL EXAMINATION: BP 122/76 Pulse 80 Ht 172.7 cm (5' 8 ) Wt 118.8 kg (261 lb 12.8 oz) LMP 02/20/2024 BMI 39.81 kg/m Well-appearing in no distress. Respirations not labored, speaking comfortably in full sentences Gravid abdomen OVERALL ASSESSMENT -Griselda Macedo is a pleasant 29 y.o. at 20w3d [...] evaluation in level [facility] hospital i[facility] due to the suspicion for placenta accreta need for surgical management including massive transfusion protocol. Unfortunately, given the significance fundal subchorionic hematoma, vaginal bleeding in this could be either due to the placenta previa or the subchorionic hematoma. To facilitate a diagnosis, a pelvic MRI for evaluation of placenta accreta spectrum was ordered at [facility]. I recommended pelvic rest and advised her to contact her OB provider if she experiences any vaginal bleeding. I recommend re-evaluation of the placenta in 4 weeks at [facility] via repeat transvaginal ultrasound. Return precautions [...] ultrasound, attempt completion in 4 weeks through [facility] Re-evaluation of placenta previa and suspicion of placenta accreta spectrum via transvaginal ultrasound in 4 weeks through [facility]. Full bladders needed for proper evaluation. Pelvic MRI to evaluate placenta accreta spectrum at [facility] Follow up in [facility] in 4 weeks DISPOSITION: At this point the patient is in complete care of her spring maker. Patient does have ultrasound and office visit scheduled with us. Thank you for allowing me to participate in the care of Griselda Macedo. If there any questions please do not hesitate to contact us. Total time spent was 68 minutes: Preparing to see the patient (e.g., review of tests) Obtaining and/or reviewing separately obtained history Performing a medically appropriate examination and/or evaluation Counseling and educating the patient/family/caregiver Ordering medications, tests, or procedures Referring and communicating with other health career services representative (not separately reported) Documenting clinical information in the electronic or other health record Jono Mendenhall MD Maternal- Medicine [facility] [address] [place] [address] [facility], the CDC, and other organizations representing maternal and public health professionals recommend that , , and lactating people and those considering receive the COVID-19 vaccination. Vaccination is the best method to reduce maternal and complications of SARS-CoV-2 infection. This document was created with [employer] technology. Though I make every effort to review the dictation as it is transcribed, on occasion the spoken word can be misinterpreted by the technology leading to inappropriate words, phrases, or sentences. This note is addressed to the requesting provider as a consultation for clinical guidance. Specific medical abbreviations are occasionally used and those are generally approved by the [place]?Board of?Obstetrics and?Gynecology?as well as?Jayna s abbreviations. The above plan of care was based solely on the diagnoses for which a consultation was requested. ?More frequent testing may be indicated based on her other medical/obstetrical conditions. The management of other or medical conditions is beyond the scope of requested consultation and will continue to be followed by the primary spring maker or primary care provider. Note to patient: The Cures Act makes medical notes like these [...] male Have you been seen here at [facility] in a previous ? No Recent ER visits or hospitalizations? No Bring blood sugar log or meter with you today? (Please bring them with you for every visit at [facility]) n/a Flu vaccine (Mar-July)? No Any concerns that you would like me to mention to the provider today? No documented in this encounter [facility] 06-28-2024 History of Presen t illness Narrative Reason for Appointment: Patient ID: Griselda Macedo is a 29 y.o. female who [...] nursing note reviewed. Exam conducted with a concrete products machine operator present. Vitals: Estimated body mass index is [...] Jesus Godinez DO documented in this encounter [facility] 06-08-2024 Miscellaneous Notes LMOM for return call to schedule usn/consult. documented in this encounter [facility] 06-08-2024 Telephone encounter Note LMOM for return call to schedule usn/consult. [facility] 05-31-2024 History of Presen t illness Narrative Reason for Appointment: Patient ID: Griselda Macedo is a 29 y.o. female who [...] studies 11/18/2022 Abnormal uterine bleeding 11/18/2022 Depression ([facility]/HCC) 11/18/2022 Generalized anxiety disorder ([facility]/HCC) 11/18/2022 Malodorous urine 11/18/2022 Obesity 11/18/2022 [...] Abnormal uterine bleeding (AUB) Chronic tonsillitis Depression ([facility]) Depression screening Encounter for female family planning [...] nursing note reviewed. Exam conducted with a concrete products machine operator present. Vitals: Estimated body mass index is [...] or undercooked meat, and stay away from [facility]. Patient has been consulted regarding any further do's and don'ts of . Patient voiced understanding and all questions and concerns were answered. Discussed with patient seeing [facility] for Level II ultrasound due to [...] Jesus Godinez DO documented in this encounter [facility] 05-03-2024 History of Presen t illness Narrative Reason for Appointment: Patient ID: Griselda Macedo is a 29 y.o. female who [...] 11/18/2022 Depression (CMS/HCC) 11/18/2022 Generalized anxiety disorder ([facility]/HCC) 11/18/2022 Malodorous urine 11/18/2022 Obesity 11/18/2022 [...] or undercooked meat, and stay away from [facility]. Patient has also been advised to not [...] Katerina Escobar LPN documented in this encounter [facility] 01-13-2024 History of Presen t illness Narrative Reason for Appointment: Patient ID: Griselda Macedo is a 28 y.o. female who presents for Weight Management (Adipex #5) Patient presents today via telephone call for a telehealth appointment. Patients Phone #: [phone] (mobile) Current Medications: has a current medication [...] of: KENDRA Palencia documented in this encounter [facility] 07-08-2023 History of Presen t illness Narrative Reason for Appointment: Patient ID: Griselda Macedo is a 28 y.o. female who [...] LOW TRANSVERSE 08/2009 SECTION, LOW TRANSVERSE 2016 PAP SMEAR 12/14/2019 negative TONSILLECTOMY 05/12/2012 Chronic [...] Acute non-recurrent frontal sinusitis (ICD-10 - J01.10) [employer] Other 03-14-2023 Evaluation note* Encounter Date Diagnosis Assessment Notes Treatment Notes Treatment Clinical Notes Jul, Dysuria (ICD-10 - R30.0) [employer] Other 11-01-2022 Evaluation note* Encounter Date Diagnosis Assessment Notes Treatment Notes Treatment Clinical Notes Mar, Anxiety (ICD-10 - F41.9) [employer] Other 10-07-2022 Evaluation note* Encounter Date Diagnosis Assessment Notes Treatment Notes Treatment Clinical Notes Feb, Encntr for general adult medical exam w/o abnormal findings (ICD-10 - Z00.00) Feb, Other No change today...Continue as is...FU 6 months.... [employer] Other 09-21-2022 Evaluation note* Encounter Date Diagnosis Assessment Notes Treatment Notes Treatment Clinical Notes Jan, Contact with and (suspected) exposure to other viral communicable diseases (ICD-10 - Z20.828) [employer] Other 09-19-2022 Evaluation note* Encounter Date Diagnosis Assessment Notes Treatment Notes Treatment Clinical Notes Jan, Contact with and (suspected) exposure to other viral communicable diseases (ICD-10 - Z20.828) [employer] Other 08-26-2022 Evaluation note* Encounter Date Diagnosis Assessment Notes Treatment Notes Treatment Clinical Notes Dec, Anxiety (ICD-10 - F41.9) E Rx sent. Lengthy discussion with patient that I think we need to try something than just a straight SSRI. We will see patient back in review. We talked about potential side effects as well as outcomes. She will call with any concerns. [employer] Other 08-20-2022 Evaluation note* Encounter Date Diagnosis Assessment Notes Treatment Notes Treatment Clinical Notes Dec, Contact with and (suspected) exposure to other viral communicable diseases (ICD-10 - Z20.828) [employer] Other 10-11-2021 Evaluation note* Encounter Date Diagnosis Assessment Notes Treatment Notes Treatment Clinical Notes Feb, Encntr for general adult medical exam w/o abnormal findings (ICD-10 - Z00.00) Feb, Other No change today...Continue as is...FU PRN/Yearly... [employer] Other Evaluation noteNo InformationNort [employer] Other Evaluation note* Diagnosis Third trimester state, incidental [facility] information [facility] Work Phone: Evaluation note* Diagnosis Missed menses , unspecified gestational age Encounter for supervision of normal first in first trimester documented in this encounter [facility]* Diagnosis Weight gain Other symptoms concerning nutrition, metabolism, and development Encounter for weight management documented in this encounter [facility]* Diagnosis Second trimester state, incidental 13 weeks gestation of Subchorionic hematoma in first trimester, single or unspecified fetus documented in this encounter [facility]* Diagnosis Encounter for anatomic survey- Primary [facility] Diagnosis 18 weeks gestation of Second trimester state, incidental Screening, , for anatomic survey Encounter for anatomic survey Nonintractable headache, unspecified chronicity pattern, unspecified headache type documented in this encounter [facility]* Diagnosis 20 weeks gestation of - Primary History of delivery affecting Vaginal bleeding in Placenta previa antepartum in second trimester 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 [facility] Diagnosis Placental problem affecting fourth - Primary documented [facility]* Diagnosis Second trimester state, incidental 22 weeks gestation of Diabetes mellitus screening Screening for diabetes mellitus documented in this encounter [facility]* Diagnosis Abnormal ultrasonic finding on screening of mother, antepartum- Primary documented in this encounter [facility]* Diagnosis Placenta previa antepartum in second trimester- Primary Placenta accreta affecting delivery documented in this encounter [facility]* Diagnosis Vaginal bleeding in , second trimester- Primary Placenta previa antepartum in second trimester Placenta accreta affecting delivery History of 3 sections Subchorionic hematoma, antepartum, single or unspecified fetus Abnormal ultrasonic finding on screening of mother, antepartum care, antepartum documented in this encounter [facility]* Diagnosis Placenta previa antepartum in second trimester- Primary Placenta accreta affecting delivery Subchorionic hematoma, antepartum, single or unspecified fetus documented in [facility] encounter [facility]* Diagnosis Second trimester state, incidental 26 weeks gestation of [facility] Diagnosis Placenta accreta, second trimester- [...] History anxiety Surgical History tonsillectomy and adenoidectomy 2011 Surgical History c-sections 2009 and 2016 Hospitalization History C Sections [employer] Other InstructionsNot on filedocumented in this encounter [...] trimester Anemia affecting in second trimester Nadia Ellis MD [address] [facility] [id number] [place] [address] Phone: tel: fax: [facility] [address] [place] [address] Phone: tel: fax: Referral ID Status Reason Start Date Expiration Date V isits Requested Visits Authorized [id number] Pending Review 08/30/2024 08/30/2025 1 1 [facility] Summary Purpose Family History No Family [...] CREATED AUTHOR AUTHOR'S ORGANIZ ATION 05/25/2024 [facility] DATE CREATED AUTHOR AUTHOR'S ORGANIZ ATION 07/28/2024 [facility] DATE CREATED AUTHOR AUTHOR'S ORGANIZ ATION 08/24/2024 [facility] Specialists EPIC DATE CREATED AUTHOR AUTHOR'S ORGANIZ ATION 09/08/2024 [facility] REASON FOR VISIT (unrecogniz ed section [...] of mother, antepartum Jono Mendenhall MD [address] [place] [address] Phone: tel: fax: Keely Hwang MD [address] [facility], [address] [address] Phone: tel: fax: Referral ID Status Reason Start Date Expiration Date Visits Requested Visits Authorized [id number] Pending Review Specialty Services Required 08/02/2024 08/02/2025 1 1 Reason Comments Routine Visit Care Teams (unrecognized sec tion and content) Technical Support Assistant Relationship Specialty Start Date End Date Laxmi Santana MD [address] [phone] PCP - General Family Medicine 11/18/22 Team Status: Active Member Role Status Dates Laxmi Santana , DO Primary Care Provider Active Team Status: Active Member Role Status Dates Laxmi Santana , DO Primary Care Provid er, Attending Provider Active Start: July 21, 2023 Team Status: Active Member Role Status Dates Laxmi Santana , DO Primary Care Provid er, Attending Provider Active Start: August 04, 2023 Team Status: Active Member Role Status Dates Laxmi Santana , DO Primary Care Provid er, Attending Provider Active Start: August 05, 2023 Team Status: Inactive Member Role Status Dates Laxmi Santana , DO Primary Care Provider Active Start: September 18, 2023 End: September 18, 2023 Tashi Tom Jr, DO Attending Provider Active S tart: September 18, 2023 End: September 18, 2023 Technical Support Assistant Relationship Specialty Start Date End Date Laxmi Santana MD [address] [phone] PCP - General Family Medicine 11/18/22 Technical Support Assistant Relationship Specialty Start Date End Date Laxmi Santana MD [address] [phone] PCP - General Family Medicine 11/18/22 Technical Support Assistant Relationship Specialty Start Date End Date Laxmi Santana MD [address] [phone] PCP - General Family Medicine 11/18/22 Technical Support Assistant Relationship Specialty Start Date End Date Laxmi Santana MD [address] [phone] PCP - General [facility] Medicine 11/18/22 Technical Support Assistant Relationship Specialty Start Date End Date Laxmi Santana MD [address] [phone] PCP - [facility] 11/18/22 Technical Support Assistant Relationship Specialty Start Date End Date Laxmi Santana MD [address] [phone] PCP - [facility] 11/18/22 Technical Support Assistant Relationship Specialty Start Date End Date Laxmi Santana MD [address] [phone] PCP - [facility] 11/18/22 Technical Support Assistant Relationship Specialty Start Date End Date Laxmi Santana MD [address] [phone] PCP - [facility] 11/18/22 Arpita Olvera PA [address] [place] [address] [place] [address] PCP - [facility] 05/26/24 Technical Support Assistant Relationship Specialty Start Date End Date Laxmi Santana MD [address] [phone] PCP - [facility] 11/18/22 Arpita Olvera PA [address] [place] [address] [place] [address] PCP - [facility] 05/26/24 Technical Support Assistant Relationship Specialty Start Date End Date Laxmi Santana MD [address] [phone] [facility] 11/18/22 Arpita Olvera PA [address] [place] [address] [facility] 05/26/24 Technical Support Assistant Relationship Specialty Start Date End Date Laxmi Santana MD [address] [phone] PCP [facility] 11/18/22 Arpita Olvera PA [address] [facility] [place] [address] [facility] 05/26/24 Technical Support Assistant Relationship Specialty Start Date End Date Laxmi Santana MD [facility] 11/18/22 Arpita Olvera PA [address] [place] [address] [facility] 05/26/24 Goals (unrecognized section and content) Goals [...] BE BASED ON THE PRIMARY CLINICAL RECORDS. [employer] [facility]. provides no warranty or guarantee of the accuracy or completeness of information in this document.
[2024-09-10 06:55] LABS: Amnisure POSITIVE (NEGATIVE); Internal Control Within Normal Limits
[2024-09-10] MEDS: 0.9 % SODIUM CHLORIDE 1,000 ML 75 ML IV (07:41)
[2024-09-10] MEDS: BETAMETHASONE ACE/BETAMETHASONE SOD PHOS 30 MG/5 ML 12 MG IM (07:41)
[2024-09-10] MEDS: AMPICILLIN SODIUM 2,000 MG in 0.9 % SODIUM CHLORIDE 100 ML 200 MG IV (07:47)
--- NOTE | 2024-09-10 07:55 | PM.OBHP ---
OB - H&P: HPI History of Present Illness Chief complaint: LEAKING FLUID : 4 Para: 3 Indications for induction: repeat section Narrative: 29 yo at 29wks presents with leakage of fluid, denies ctxns, vb, positive fm, ho of repeat c/s, ho of previa with known accreta, denies urinary symptoms History of Present Dating criteria: LMP confirmed by 1st trimester US care: good care Ultrasounds: normal 1st trimester US and abnormal US findings (previa with focal accreta) complications: placenta previa Labs Blood type: B (+) positive Rubella: immune RPR/VDLR: nonreactive GBS status: unknown HBsAG: negative Review of Systems ROS Status of ROS: 10 or more systems reviewed and unremarkable except as noted in history and below PFSH PFS Social History Highest level of school completed/degree received: some college, no degree Little interest or pleasure in doing things: not at all Feeling down, depressed, or hopeless: not at all Meds Home Medications and Allergies Home Medications ?Medication ?Instructions ?Recorded ?Confirmed ?Type ferrous sulfate 325 mg (65 mg 325 mg PO DAILY 06/26/23 07/03/23 History iron) tablet (Feosol) magnesium 200 mg tablet 400 mg PO DAILY 06/26/23 07/03/23 History vits,calcium 21-iron fum 1 tab PO DAILY 06/26/23 07/03/23 History 14 mg iron-folic acid 400 mcg tablet ( Complete) ibuprofen 800 mg tablet 800 mg PO Q8H PRN pain 14 days #40 08/06/23 Rx tabs oxycodone-acetaminophen 5 mg-325 1 tab PO Q6H PRN pain 7 days #28 08/06/23 Rx mg tablet (Percocet) tabs Allergies Allergy/AdvReac Type Severity Reaction Status Date / Time No Known Drug Allergies Allergy Verified 06/26/23 16:17 Exam Constitutional Vital Signs, click to edit/add: Last Vital Signs Pulse 105 H 09/10/24 06:25 BP 117/80 09/10/24 06:25 Documenting provider has reviewed patient's vital signs: yes Common normals: no apparent distress Respiratory Common normals: clear to auscultation bilaterally Cardio Common normals: regular rate and regular rhythm GI Common normals: Normal to inspection, nondistended, normoactive bowel sounds present Extremity Common normals: no clubbing, cyanosis or edema and no calf tenderness OB - A/P Assessment and Plan (1) Placenta accreta: (2) Intrauterine : (3) Previous delivery affecting : (4) premature rupture of membranes (PPROM) with unknown onset of labor: Plan will discuss transport of care with mfm, iv abx, iv, celestone given, magnesium 4g bolus, 2g/hr, cont efm
[2024-09-10] MEDS: 0.9 % SODIUM CHLORIDE 1,000 ML 25 ML IV (07:57)
[2024-09-10] MEDS: MAGNESIUM-BOLUS FROM THE BAG- 40 GM/1,000 ML IV.SOLN IV (07:58)
[2024-09-10 08:12] LABS: Basophils Percent Auto 0.2 % (0.2-2.0); Eosinophils Absolute Auto 0.1 10^3/uL (0.0-0.7); Eosinophils Percent Auto 0.8 % (0.9-7.0); Hematocrit 34.8 % (36.0-48.0); Hemoglobin 11.5 g/dL (12.0-16.0); Immature Granulocytes Abs Auto 0.04 10^3/uL (0.00-0.03); Immature Granulocytes Pct Auto 0.4 % (0.0-0.5); Lymphocytes Absolute Auto 2.7 10^3/uL (1.2-3.8); Lymphocytes Percent Auto 26.3 % (20.5-60.0); Mean Corpuscular Hemoglobin 26.9 pg (26.7-34.0); Mean Corpuscular Volume 81.5 fL (81.0-99.0); Mean Platelet Volume 10.2 fL (9.5-13.5); Monocytes Absolute Auto 0.5 10^3/uL (0.3-0.8); Monocytes Percent Auto 4.6 % (1.7-12.0); Neutrophils Absolute Auto 6.9 10^3/uL (1.4-6.5); Neutrophils Percent Auto 67.7 % (43.0-75.0); Platelet Count 244 10^3/uL (150-450); Red Blood Count 4.27 10^6/uL (4.20-5.40); White Blood Count 10.2 10^3/uL (4.0-11.0)
[2024-09-10] MEDS: MAGNESIUM SULFATE IN WATER 40 GM/1,000 ML IV.SOLN IV (08:20)
== END 2024-09-10 09:28 | disposition short-term general hospital (02) ==
PROVIDERS: Admitting Provider Obstetrics & Gynecology; PCP Family Medicine; Visit Provider Obstetrics & Gynecology
DX: O42.913 Preterm premature rupture of membranes, unspecified as to length of time between rupture and onset of labor, third trimester (principal); Z3A.29 29 weeks gestation of pregnancy; O34.211 Maternal care for low transverse scar from previous cesarean delivery; O43.213 Placenta accreta, third trimester
CPT/HCPCS: 36415; 59025; 84112; 85025; 86850; 86900; 86901; 96365; 96372; 96375; G0378; G0379; J0290; J0702; J3475